=== PATIENT | male | born 1955 | race Caucasian/White ===

== ENCOUNTER → 2016-05-01 | Outpatient (CLI) | payer MEDICARE, BC ==
--- NOTE | 2016-05-01 13:24 | XR ---
EXAMINATION TYPE: XR abdomen 1V DATE OF EXAM: 05/01/2016 12:06 PM COMPARISON: NONE HISTORY: Pain TECHNIQUE: Single supine KUB image of the abdomen is obtained FINDINGS: Small bowel demonstrates no evidence for dilatation or air fluid levels. Gas and fecal material is seen in non-distended colon. No convincing evidence for pneumoperitoneum. No unusual calcifications. Splenic granulomas noted. The lung bases are clear. The osseous structures are intact. IMPRESSION: 1. Overall nonobstructive bowel gas pattern.
== END | disposition home or self-care (01) ==
LOC: RADXRMAIN 11:44
PROVIDERS: ATTEND Physician Assistant
DX: R10.9 Unspecified abdominal pain (principal)
CPT/HCPCS: 74000

== ENCOUNTER → 2016-05-03 | Outpatient (CLI) | payer MEDICARE, BC ==
--- NOTE | 2016-05-03 07:59 | US ---
EXAMINATION TYPE: US liver DATE OF EXAM: 05/03/2016 7:27 AM COMPARISON: CT in pacs CLINICAL HISTORY: E80.6 BILIRUBIN METABOLISM DISORDER. Abdomen pain x 2 weeks EXAM MEASUREMENTS: Liver Length: 12.0 cm Gallbladder Wall: 0.2 cm CBD: 0.4 cm Right Kidney: 10.4 cm Pancreas: obscured by overlying midline bowel gas Liver: appears small heterogeneous with slightly lobulated contour, 0.8cm hypoechoic cystic area ant erior left lobe, limited by rib shadowing and overlying bowel gas Gallbladder: multiple echogenic foci seen Evidence for sonographic Willard's sign: no CBD: visualized portions wnl, limited by overlying bowel gas Right Kidney: 0.4cm echogenic foci inferior pole, superior pole obscured by overlying bowel gas IMPRESSION: 1. Fatty liver versus diffuse hepatocellular disease. 2. Cholelithiasis. 3 right renal calculus.
== END | disposition home or self-care (01) ==
LOC: RADUSWWP 06:53
PROVIDERS: ATTEND Family Medicine
DX: K80.20 Calculus of gallbladder without cholecystitis without obstruction (principal); N20.0 Calculus of kidney; E80.6 Other disorders of bilirubin metabolism
CPT/HCPCS: 76705

== ENCOUNTER 2016-11-15 18:18 | Inpatient (IN) | payer MEDICARE, BC ==
--- NOTE | 2016-11-15 18:42 | ED ---
SOB HPI - General Chief Complaint: Shortness of Breath Stated Complaint: katelyn, x 1 day Time Seen by Provider: 11/15/16 18:30 Source: patient, RN notes reviewed Mode of arrival: wheelchair Limitations: no limitations - History of Present Illness Initial Comments: This is a 61-year-old male with a history of COPD who states she's had shortness of breath since yesterday which is getting progressively worse. He woke up and sweats this morning he said cough with yellow phlegm. Chest pain no other symptoms reviewed this time. MD Complaint: shortness of breath, cough - Related Data Home Medications Medication Instructions Recorded Confirmed Albuterol Sulfate [Proair Hfa] 2 puff INHALATION RT-QID PRN 09/05/14 11/15/16 Omeprazole [PriLOSEC] 20 mg PO DAILY 09/05/14 11/15/16 Lisinopril [Zestril] 10 mg PO DAILY 12/10/15 11/15/16 traMADol HCL [Ultram] 50 mg PO QID PRN 12/10/15 11/15/16 Multivit-Min/FA/Lycopen/Lutein 1 tab PO DAILY 11/15/16 11/15/16 [Centrum Silver Tablet] Allergies Allergy/AdvReac Type Severity Reaction Status Date / Time No Known Allergies Allergy Verified 11/15/16 19:35 Review of Systems ROS Statement: Those systems with pertinent positive or pertinent negative responses have been documented in the HPI. ROS Other: All systems not noted in ROS Statement are negative. Past Medical History Past Medical History: GERD/Reflux, Hypertension, Pneumonia Additional Past Medical History / Comment(s): pneumonia , left ankle tendon injury winter 2013 History of Any Multi-Drug Resistant Organisms: None Reported Past Surgical History: Orthopedic Surgery Additional Past Surgical History / Comment(s): right leg surgery 2009 r hip surg Past Psychological History: No Psychological Hx Reported Smoking Status: Former smoker Past Alcohol Use History: Heavy, Rare Past Drug Use History: None Reported - Past Family History Mother Family Medical History: GERD/Reflux Additional Family Medical History / Comment(s): of crohn's disease Father Family Medical History: Diabetes Mellitus General Exam - General Exam Comments Initial Comments: This is a well-developed well-nourished awake alert oriented x 3 male Limitations: no limitations General appearance: alert, in no apparent distress Head exam: Present: atraumatic, normocephalic, normal inspection Eye exam: Present: normal appearance, PERRL, EOMI. Absent: scleral icterus, conjunctival injection, periorbital swelling ENT exam: Present: normal exam, mucous membranes moist Neck exam: Present: normal inspection. Absent: tenderness, meningismus, lymphadenopathy Respiratory exam: Present: decreased breath sounds. Absent: respiratory distress, wheezes, rales, rhonchi, stridor Cardiovascular Exam: Present: regular rate, normal rhythm, normal heart sounds. Absent: systolic murmur, diastolic murmur, rubs, gallop, clicks GI/Abdominal exam: Present: soft, normal bowel sounds. Absent: distended, tenderness, guarding, rebound, rigid Extremities exam: Present: normal inspection, full ROM, normal capillary refill. Absent: tenderness, pedal edema, joint swelling, calf tenderness Back exam: Present: normal inspection Neurological exam: Present: alert, oriented X3, CN II-XII intact Psychiatric exam: Present: normal affect, normal mood Skin exam: Present: warm, dry, intact, normal color. Absent: rash Course Vital Signs 11/15/16 11/15/16 11/15/16 18:35 19:07 19:31 Temperature 99.1 F Pulse Rate 90 68 Respiratory 18 18 18 Rate Blood Pressure 161/77 142/67 O2 Sat by Pulse 94 L 99 Oximetry 11/15/16 19:46 Temperature Pulse Rate 88 Respiratory Rate Blood Pressure O2 Sat by Pulse Oximetry - Reevaluation(s) Reevaluation #1: 11/15/16 22:17 The patient did get some relief but then started having repeated shortness of breath. He will be admitted Medical Decision Making - Medical Decision Making I did discuss findings with the patient with Dr. Trevino patient be admitted CT the chest will be performed pulmonary will be consulted. - Lab Data Result diagrams: 11/15/16 18:55 11/15/16 18:55 Lab Results 11/15/16 11/15/16 11/15/16 Range/Units 18:55 18:55 18:55 WBC 4.1 (3.8-10.6) k/uL RBC 4.06 L (4.30-5.90) m/uL Hgb 10.5 L (13.0-17.5) gm/dL Hct 34.0 L (39.0-53.0) % MCV 83.7 (80.0-100.0) fL MCH 25.8 (25.0-35.0) pg MCHC 30.8 L (31.0-37.0) g/dL RDW 19.7 H (11.5-15.5) % Plt Count 94 L (150-450) k/uL Neutrophils % (Manual) 79 % Band Neutrophils % 1.0 % Lymphocytes % (Manual) 11 % Monocytes % (Manual) 8 % Eosinophils % (Manual) 1 % Neutrophils # (Manual) 3.28 (1.3-7.7) k/uL Lymphocytes # (Manual) 0.45 L (1.0-4.8) k/uL Monocytes # (Manual) 0.33 (0-1.0) k/uL Eosinophils # (Manual) 0.04 (0-0.7) k/uL Nucleated RBCs 0 (0-0) /100 WBC Polychromasia Present Hypochromasia Marked Anisocytosis Slight Microcytosis Slight PT (9.0-12.0) sec INR (<1.2) APTT (22.0-30.0) sec D-Dimer (<0.60) mg/L FEU Sodium 136 L (137-145) mmol/L Potassium 3.9 (3.5-5.1) mmol/L Chloride 109 H (98-107) mmol/L Carbon Dioxide 21 L (22-30) mmol/L Anion Gap 6 mmol/L BUN 10 (9-20) mg/dL Creatinine 0.68 (0.66-1.25) mg/dL Est GFR (MDRD) Af Amer >60 (>60 ml/min/1.73 sqM) Est GFR (MDRD) Non-Af >60 (>60 ml/min/1.73 sqM) Glucose 91 (74-99) mg/dL Calcium 8.0 L (8.4-10.2) mg/dL Magnesium 1.8 (1.6-2.3) mg/dL Total Bilirubin 2.2 H (0.2-1.3) mg/dL AST 28 (17-59) U/L ALT 25 (21-72) U/L Alkaline Phosphatase 129 H (38-126) U/L Total Creatine Kinase 75 (55-170) U/L CK-MB (CK-2) 2.7 H* (0.0-2.4) ng/mL CK-MB (CK-2) Rel Index 3.6 Troponin I <0.012 (0.000-0.034) ng/mL NT-Pro-B Natriuret Pep pg/mL Total Protein 6.7 (6.3-8.2) g/dL Albumin 2.7 L (3.5-5.0) g/dL 11/15/16 11/15/16 Range/Units 18:55 18:55 WBC (3.8-10.6) k/uL RBC (4.30-5.90) m/uL Hgb (13.0-17.5) gm/dL Hct (39.0-53.0) % MCV (80.0-100.0) fL MCH (25.0-35.0) pg MCHC (31.0-37.0) g/dL RDW (11.5-15.5) % Plt Count (150-450) k/uL Neutrophils % (Manual) % Band Neutrophils % % Lymphocytes % (Manual) % Monocytes % (Manual) % Eosinophils % (Manual) % Neutrophils # (Manual) (1.3-7.7) k/uL Lymphocytes # (Manual) (1.0-4.8) k/uL Monocytes # (Manual) (0-1.0) k/uL Eosinophils # (Manual) (0-0.7) k/uL Nucleated RBCs (0-0) /100 WBC Polychromasia Hypochromasia Anisocytosis Microcytosis PT 14.2 H (9.0-12.0) sec INR 1.5 H (<1.2) APTT 31.5 H (22.0-30.0) sec D-Dimer 0.79 H (<0.60) mg/L FEU Sodium (137-145) mmol/L Potassium (3.5-5.1) mmol/L Chloride (98-107) mmol/L Carbon Dioxide (22-30) mmol/L Anion Gap mmol/L BUN (9-20) mg/dL Creatinine (0.66-1.25) mg/dL Est GFR (MDRD) Af Amer (>60 ml/min/1.73 sqM) Est GFR (MDRD) Non-Af (>60 ml/min/1.73 sqM) Glucose (74-99) mg/dL Calcium (8.4-10.2) mg/dL Magnesium (1.6-2.3) mg/dL Total Bilirubin (0.2-1.3) mg/dL AST (17-59) U/L ALT (21-72) U/L Alkaline Phosphatase (38-126) U/L Total Creatine Kinase (55-170) U/L CK-MB (CK-2) (0.0-2.4) ng/mL CK-MB (CK-2) Rel Index Troponin I (0.000-0.034) ng/mL NT-Pro-B Natriuret Pep 246 pg/mL Total Protein (6.3-8.2) g/dL Albumin (3.5-5.0) g/dL - EKG Data -: EKG Interpreted by Nv EKG shows normal: sinus rhythm (Sinus rhythm rate 91 appear to 05/08/1979 QRS duration 88 daily since QTC of 386/474 this is a normal-appearing EKG with some artifact) - Radiology Data Radiology results: report reviewed (X-ray show no acute findings.), image reviewed Critical Care Time Critical Care Time: Yes Critical Care Time: 31 minutes of critical care time which includes initial monitoring with history physical labs x-rays reevaluation patient response to therapy. Evaluation of old charting available. Discussion with the patient discussion with the patient 's physician and admission orders and documentation of the above. Disposition Clinical Impression: Acute exacerbation of chronic obstructive airways disease, Adult respiratory distress syndrome Disposition: ADMITTED IP TO THIS [facility] Condition: Stable Referrals: Narayan Trevino MD [Primary Care Provider] - 1-2 days
[2016-11-15] MEDS ORDERED: IPRATROPIUM-ALBUTEROL 3 ML NEB INHALATION STA (18:59)
[2016-11-15 19:30] LABS: ALT 25 U/L (21-72); AST 28 U/L (17-59); Alkaline Phosphatase 129 U/L (38-126); Anion Gap 6 mmol/L; Blood Urea Nitrogen 10 mg/dL (9-20); Carbon Dioxide 21 mmol/L (22-30); Chloride 109 mmol/L (98-107); Glucose 91 mg/dL (74-99); Magnesium 1.8 mg/dL (1.6-2.3); Non-African American GFR(MDRD) >60 (>60 ml/min/1.73 sqM); Potassium 3.9 mmol/L (3.5-5.1); Sodium 136 mmol/L (137-145); Total Bilirubin 2.2 mg/dL (0.2-1.3); Total Protein 6.7 g/dL (6.3-8.2)
[2016-11-15 19:37] LABS: Creatine Kinase 75 U/L (55-170)
[2016-11-15 19:40] LABS: INR 1.5 (<1.2); Partial Thromboplastin Time 31.5 sec (22.0-30.0); Prothrombin Time 14.2 sec (9.0-12.0)
[2016-11-15 19:50] LABS: Troponin I <0.012 ng/mL (0.000-0.034)
[2016-11-15 19:53] LABS: Anisocytosis Slight; Aty Lym Flag Slight; CH 24.7; CHCM 29.6; HDW 3.27; HGB 10.5 gm/dL (13.0-17.5); Hypochromasia Marked; MCH 25.8 pg (25.0-35.0); MCHC 30.8 g/dL (31.0-37.0); MCV 83.7 fL (80.0-100.0); Mean Platelet Volume 7.5; Microcytosis Slight; RBC 4.06 m/uL (4.30-5.90); RDW 19.7 % (11.5-15.5); WBC 4.1 k/uL (3.8-10.6); WBC (Perox) 3.88
[2016-11-15 19:58] LABS: Creatine Kinase MB 2.7 ng/mL (0.0-2.4)
--- NOTE | 2016-11-15 20:13 | XR ---
EXAMINATION TYPE: XR chest 2V DATE OF EXAM: 11/15/2016 COMPARISON: Chest x-ray December 10, 2015. HISTORY: History of COPD presents with difficulty in breathing. TECHNIQUE: Frontal and lateral views of the chest are obtained. FINDINGS: Chronic emphysematous changes redemonstrated. There is no focal air space opacity, pleural effusion, or pneumothorax seen. The cardiac silhouette size is stable and upper limits of normal. The osseous structures are intact. IMPRESSION: Chronic emphysematous change without acute pulmonary process.
[2016-11-15 20:33] LABS: Add Differential Manual Differential
[2016-11-15 20:36] LABS: Nucleated Red Blood Cells 0 /100 WBC (0-0); Polychromasia Present; Total Cells Counted 100
[2016-11-15] MEDS ORDERED: RX INFO: IV CONTRAST WAS GIVEN 1 EACH MISC MISCELLANE PRN (22:21)
--- NOTE | 2016-11-15 23:34 | CT ---
EXAM: CT Angiography Chest With Intravenous Contrast CLINICAL HISTORY: Pain. Decreased O2 saturation TECHNIQUE: Axial computed tomographic angiography images of the chest with intravenous contrast using pulmonary embolism protocol. CTDI is slight 29.4 mGy and DLP is 377.7 mGy-cm. This CT exam was performed using one or more of the following dose reduction techniques: automated exposure control, adjustment of the mA and/or kV according to patient size, and/or use of iterative reconstruction technique. MIP reconstructed images were created and reviewed. Coronal and sagittal reformatted images were created and reviewed. Axial reformatted images were created and reviewed. COMPARISON: CT December 10, 2014 FINDINGS: Pulmonary arteries: No pulmonary embolism. Aorta: No aortic aneurysm or dissection. Lungs: No infiltrate No mass. Pleural space: Unremarkable. No significant effusion. No pneumothorax. Heart: Heart size is normal. No pericardial effusion. No rightward bowing of the ventricular septum Bones/joints: No osseous abnormality No acute fracture. No dislocation. Soft tissues: Unremarkable. Lymph nodes: Small calcified mediastinal and right hilar lymph nodes not meeting size criteria for lymphadenopathy No axillary lymphadenopathy Visualized upper abdomen: Cirrhosis. Tiny cholelithiasis. Subcentimeter granulomatous of the spleen. 3.5 cm exophytic left renal cyst. IMPRESSION: 1. No pulmonary embolism. 2. No aortic aneurysm or dissection. 3. Cirrhotic liver. 4. Tiny choledocholithiasis
[2016-11-15] MEDS ORDERED: IPRATROPIUM-ALBUTEROL 3 ML NEB INHALATION PRN (23:54)
[2016-11-16] MEDS ORDERED: IPRATROPIUM-ALBUTEROL 3 ML NEB INHALATION SCH
[2016-11-16 00:44] VITALS: BMI 27.9
[2016-11-16] MEDS: traMADol 50 MG TAB PO PRN ×2 (02:46→09:15)
[2016-11-16] MEDS: methylPREDNISolone SOD SUCCI 125 MG/2 ML VIAL IV SCH ×3 (02:47→12:08)
[2016-11-16] MEDS: SODIUM CHLORIDE 0.9% 1,000 ML IV SCH ×2 (05:40→05:41)
[2016-11-16] MEDS: IPRATROPIUM-ALBUTEROL 3 ML NEB INHALATION SCH ×2 (07:25→11:09)
[2016-11-16] MEDS ORDERED: PANTOPRAZOLE 40 MG TABLET PO SCH (07:30)
[2016-11-16 07:41] VITALS: BP 141/71
[2016-11-16] MEDS ORDERED: LISINOPRIL 10 MG TAB PO SCH (09:00)
--- NOTE | 2016-11-16 11:21 | P.HPIM ---
History of Present Illness 51-year-old male presented to the emergency room with complaints of exacerbation of COPD. States he's had sweats and nonproductive sputum. His improving of right ankle foot cellulitis Review of Systems Respiratory: Reports cough Musculoskeletal: right: ankle swelling, hip pain Past Medical History Past Medical History: GERD/Reflux, Hypertension, Pneumonia Additional Past Medical History / Comment(s): pneumonia , left ankle tendon injury winter 2013 History of Any Multi-Drug Resistant Organisms: None Reported Past Surgical History: Orthopedic Surgery Additional Past Surgical History / Comment(s): right leg surgery 2009 r hip surg Past Psychological History: No Psychological Hx Reported Smoking Status: Former smoker Past Alcohol Use History: Heavy, Rare Additional Past Alcohol Use History / Comment(s): pt asking for beer on arrival to nursing unit Past Drug Use History: None Reported - Past Family History Mother Family Medical History: GERD/Reflux Additional Family Medical History / Comment(s): of crohn's disease Father Family Medical History: Diabetes Mellitus Medications and Allergies Home Medications Medication Instructions Recorded Confirmed Type Albuterol Sulfate [Proair Hfa] 2 puff INHALATION RT-QID PRN 09/05/14 11/15/16 History Omeprazole [PriLOSEC] 20 mg PO DAILY 09/05/14 11/15/16 History Lisinopril [Zestril] 10 mg PO DAILY 12/10/15 11/15/16 History traMADol HCL [Ultram] 50 mg PO QID PRN 12/10/15 11/15/16 History Multivit-Min/FA/Lycopen/Lutein 1 tab PO DAILY 11/15/16 11/15/16 History [Centrum Silver Tablet] Allergies Allergy/AdvReac Type Severity Reaction Status Date / Time No Known Allergies Allergy Verified 11/15/16 19:35 Physical Exam Vitals: Vital Signs Temp Pulse Pulse Resp BP BP Pulse Ox 11/16/16 11:09 78 11/16/16 07:40 97.6 F 92 16 141/71 94 L 11/16/16 07:36 88 11/16/16 07:26 87 95 11/16/16 00:30 98.0 F 94 16 147/69 94 L 11/16/16 00:19 97.6 F 70 18 152/59 99 11/16/16 00:14 86 11/16/16 00:05 97.9 F 80 17 156/64 11/15/16 23:57 80 11/15/16 22:58 78 16 137/79 98 11/15/16 19:46 88 11/15/16 19:31 68 18 142/67 99 11/15/16 19:07 18 11/15/16 18:35 99.1 F 90 18 161/77 94 L Intake and Output 11/15/16 11/16/16 11/16/16 22:59 06:59 14:59 Intake Total 480 240 Output Total 900 Balance -420 240 Intake: Oral 480 240 Output: Urine 900 Other: Weight 88.451 kg 88.451 kg - Constitutional General appearance: mild distress, obese - EENT Eyes: PERRLA Ears: bilateral: normal - Neck Neck: normal ROM - Respiratory Respiratory: bilateral: diminished - Cardiovascular Rhythm: regular - Gastrointestinal General gastrointestinal: soft - Integumentary Right lower ankle foot Integumentary: cellulitis - Musculoskeletal Musculoskeletal: generalized weakness - Psychiatric Psychiatric: A&O x's 3, appropriate affect, intact judgment & insight Results CBC & Chem 7: 11/15/16 18:55 11/15/16 18:55 Labs: Abnormal Lab Results - Last 24 Hours (Table) 11/15/16 11/15/16 11/15/16 Range/Units 18:55 18:55 18:55 RBC 4.06 L (4.30-5.90) m/uL Hgb 10.5 L (13.0-17.5) gm/dL Hct 34.0 L (39.0-53.0) % MCHC 30.8 L (31.0-37.0) g/dL RDW 19.7 H (11.5-15.5) % Plt Count 94 L (150-450) k/uL Lymphocytes # (Manual) 0.45 L (1.0-4.8) k/uL PT (9.0-12.0) sec INR (<1.2) APTT (22.0-30.0) sec D-Dimer (<0.60) mg/L FEU Sodium 136 L (137-145) mmol/L Chloride 109 H (98-107) mmol/L Carbon Dioxide 21 L (22-30) mmol/L Calcium 8.0 L (8.4-10.2) mg/dL Total Bilirubin 2.2 H (0.2-1.3) mg/dL Alkaline Phosphatase 129 H (38-126) U/L CK-MB (CK-2) 2.7 H* (0.0-2.4) ng/mL Albumin 2.7 L (3.5-5.0) g/dL 11/15/16 Range/Units 18:55 RBC (4.30-5.90) m/uL Hgb (13.0-17.5) gm/dL Hct (39.0-53.0) % MCHC (31.0-37.0) g/dL RDW (11.5-15.5) % Plt Count (150-450) k/uL Lymphocytes # (Manual) (1.0-4.8) k/uL PT 14.2 H (9.0-12.0) sec INR 1.5 H (<1.2) APTT 31.5 H (22.0-30.0) sec D-Dimer 0.79 H (<0.60) mg/L FEU Sodium (137-145) mmol/L Chloride (98-107) mmol/L Carbon Dioxide (22-30) mmol/L Calcium (8.4-10.2) mg/dL Total Bilirubin (0.2-1.3) mg/dL Alkaline Phosphatase (38-126) U/L CK-MB (CK-2) (0.0-2.4) ng/mL Albumin (3.5-5.0) g/dL Chest x-ray: report reviewed CT scan - chest: report reviewed Thrombosis Risk Factor Assmnt - Choose All That Apply Any of the Below Risk Factors Present?: Yes Each Factor Represents 1 point: Abnormal pulmonary function (COPD) Each Risk Factor Represents 2 Points: Age 61-74 years Each Risk Factor Represents 3 Points: History of DVT/PE Thrombosis Risk Factor Assessment Total Risk Factor Score: 6 Thrombosis Risk Factor Assessment Level: High Risk Assessment and Plan Plan: Assessment Acute on chronic chronic obstructive lung disease Tracheobronchitis Cellulitis of the right foot improving history of GERD Hypertension Osteoarthritis right hip Plan Consultation with pulmonology to dose antibiotics if needed
[2016-11-16] MEDS ORDERED: MULTIVITAMINS, THERA 1 EACH TAB PO SCH (12:00)
[2016-11-16 14:07] VITALS: PULSE 105; RESP 17; TEMP 98.7
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
== END 2016-11-16 15:01 | disposition left against medical advice (07) | DRG 191 ==
LOC: EC 18:18 → 3SUR 22:19
PROVIDERS: ADMIT Family Medicine; ATTEND Family Medicine
DX: J44.1 Chronic obstructive pulmonary disease with (acute) exacerbation (principal); L03.115 Cellulitis of right lower limb; I10 Essential (primary) hypertension; K21.9 Gastro-esophageal reflux disease without esophagitis; K76.9 Liver disease, unspecified; M16.11 Unilateral primary osteoarthritis, right hip; K80.50 Calculus of bile duct without cholangitis or cholecystitis without obstruction; Z79.899 Other long term (current) drug therapy; Z87.891 Personal history of nicotine dependence
CPT/HCPCS: 36415; 71020; 71275; 80053; 82550; 82553; 83735; 83880; 84484; 85025; 85379; 85610; 85730; 87040; 93005; 94640; 94760

== ENCOUNTER 2017-03-08 12:58 | Emergency (ER) | payer MEDICARE, BC ==
[2017-03-08 13:04] VITALS: TEMP 97.8
--- NOTE | 2017-03-08 13:34 | ED ---
Medical Clearance HPI - General Chief complaint: Drug Screen Stated complaint: Wants Urine Test Source: patient Mode of arrival: wheelchair - History of Present Illness Initial comments: Patient is a 61-year-old male who presents for evaluation for a urine drug screen. Past medical history as below. Patient stated that he was sent here by a county judge to get a urine drug screen. 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 He hasn't driven and 10 years. He cited chronic muscle skeletal issues which have been improving so he wants to start driving again. He's been working with a translator interpreter to help get him a drop hammer pile driver operator's license. He was instructed to come here specifically for a urine drug screen. He states that he has no complaints at this time. He states that he does not want a medical evaluation. He does have a primary care physician. He currently denies fever, chills, headache and changes of vision, URI symptoms, shortness of breath, cough, chest pain, nausea, vomiting, diarrhea, pain or burning with urination. Home medications: Home Medications Medication Instructions Recorded Confirmed Albuterol Sulfate [Proair Hfa] 2 puff INHALATION RT-QID PRN 09/05/14 11/15/16 Omeprazole [PriLOSEC] 20 mg PO DAILY 09/05/14 11/15/16 Lisinopril [Zestril] 10 mg PO DAILY 12/10/15 11/15/16 traMADol HCL [Ultram] 50 mg PO QID PRN 12/10/15 11/15/16 Multivit-Min/FA/Lycopen/Lutein 1 tab PO DAILY 11/15/16 11/15/16 [Centrum Silver Tablet] Allergies/Adverse reactions: Allergies Allergy/AdvReac Type Severity Reaction Status Date / Time No Known Allergies Allergy Verified 03/08/17 13:04 Review of Systems ROS Statement: Those systems with pertinent positive or pertinent negative responses have been documented in the HPI. ROS Other: All systems not noted in ROS Statement are negative. Past Medical History Past Medical History: GERD/Reflux, Hypertension, Pneumonia Additional Past Medical History / Comment(s): COPD, hypertension, acid reflux, fracture of the right ankle with an extensive reconstruction surgery, a previous hospitalization for a right subtrochanteric femur fracture post ORIF History of Any Multi-Drug Resistant Organisms: None Reported Past Surgical History: Orthopedic Surgery Additional Past Surgical History / Comment(s): right leg surgery 2009, right hip ORIF for subtrochanteric fracture Past Psychological History: No Psychological Hx Reported Smoking Status: Former smoker Past Alcohol Use History: None Reported Past Drug Use History: None Reported - Past Family History Mother Family Medical History: GERD/Reflux Additional Family Medical History / Comment(s): of crohn's disease Father Family Medical History: Diabetes Mellitus General Exam Limitations: physical limitation General appearance: alert, in no apparent distress, other (Nontoxic appearing) Head exam: Present: atraumatic, normocephalic, normal inspection Eye exam: Present: normal appearance, PERRL, EOMI. Absent: scleral icterus, conjunctival injection, periorbital swelling ENT exam: Present: normal exam, mucous membranes moist Neck exam: Present: normal inspection. Absent: tenderness, meningismus, lymphadenopathy Respiratory exam: Present: normal lung sounds bilaterally. Absent: respiratory distress, wheezes, rales, rhonchi, stridor Cardiovascular Exam: Present: regular rate, normal rhythm, normal heart sounds. Absent: systolic murmur, diastolic murmur, rubs, gallop, clicks GI/Abdominal exam: Present: soft, normal bowel sounds. Absent: distended, tenderness, guarding, rebound, rigid Extremities exam: Present: normal inspection, full ROM, normal capillary refill. Absent: tenderness, pedal edema, joint swelling, calf tenderness Back exam: Present: normal inspection Neurological exam: Present: alert, oriented X3, CN II-XII intact Psychiatric exam: Present: normal affect, normal mood Skin exam: Present: warm, dry, intact, normal color. Absent: rash Course Vital Signs 03/08/17 13:01 Temperature 97.8 F Pulse Rate 100 Respiratory 20 Rate Blood Pressure 157/72 O2 Sat by Pulse 95 Oximetry Medical Decision Making - Medical Decision Making Patient is a 61-year-old male percents for evaluation for a urine drug screen. I inquired about him going to the specific location or sending off this urine drug screen and the patient stated that he specifically needed to come here for a urine drug screen. I told the patient that I'm unable to provide a normal a copy of the urine drug screen and needs requested to medical records. He voiced understanding. I also told the patient that I have not medically cleared him for driving. He also voiced understanding of this. Provided contact information for medical records. We'll have the urine drug screen faxed to wherever it needs to be. I discussed specific signs and symptoms on when to return to the emergency department for further evaluation. Voiced understanding. Disposition Clinical Impression: Encounter for drug screening Disposition: HOME SELF-CARE Condition: Good Referrals: Narayan Trevino MD [Primary Care Provider] - 1-2 days
[2017-03-08 14:41] VITALS: BP 147/80; PULSE 75; RESP 16
== END 2017-03-08 14:35 | disposition home or self-care (01) ==
LOC: EC 12:58
DX: Z02.9 Encounter for administrative examinations, unspecified (principal); I10 Essential (primary) hypertension; K21.9 Gastro-esophageal reflux disease without esophagitis; Z87.891 Personal history of nicotine dependence; Z79.899 Other long term (current) drug therapy
CPT/HCPCS: 80306; 99282

== ENCOUNTER → 2017-05-04 | Outpatient (CLI) | payer MEDICARE, BC ==
--- NOTE | 2017-05-04 15:48 | CT ---
EXAMINATION TYPE: CT hip LT w con DATE OF EXAM: 05/04/2017 COMPARISON: NONE HISTORY: pain lt hip CT DLP: 382 mGycm Automated exposure control for dose reduction was used. CONTRAST: Performed with IV Contrast, patient injected with 100 mL of Omnipaque 300. FINDINGS: There is mild acetabular roof sclerosis and small acetabular marginal osteophytes. Mild cephalad join t space narrowing is noted. The left femoral head maintains a normal rounded morphology. No evidence of avascular necrosis or femoral fracture. The remaining visualized osseous structures of the left he mipelvis are intact. Muscle volume of the left hip girdle is unremarkable. Moderate colonic retained stool is noted. Urina ry bladder is grossly unremarkable. Labrum cannot be visualized on CT. Phleboliths are noted within t he pelvis. IMPRESSION: 1. MILD LEFT FEMORAL ACETABULAR ARTHROPATHY. 2. NO EVIDENCE OF AVASCULAR NECROSIS OR ACUTE LEFT HIP FRACTURE/DISLOCATION. 3. MUSCULAR VOLUME IS UNREMARKABLE ON CT. IF THERE IS FURTHER CONCERN FOR LABRAL INJURY, MYOSITIS, OR BURSITIS MR COULD BE PERFORMED. 4. MODERATE COLONIC STOOL BURDEN.
== END | disposition home or self-care (01) ==
LOC: RADXRMAIN 13:51
PROVIDERS: ATTEND Family Medicine
DX: M12.852 Other specific arthropathies, not elsewhere classified, left hip (principal)
CPT/HCPCS: 73701; Q9967

== ENCOUNTER → 2017-05-11 | Outpatient (CLI) | payer MEDICARE, BC ==
--- NOTE | 2017-05-11 11:15 | US ---
EXAMINATION TYPE: US venous doppler duplex LE RT DATE OF EXAM: 05/11/2017 10:51 AM COMPARISON: US CLINICAL HISTORY: R60 Localized edema right leg. Pt having right leg pain and swelling, pt states no known prior DVT, but is currently on blood thinners SIDE PERFORMED: Right TECHNIQUE: The lower extremity deep venous system is examined utilizing real time linear array sonog sade with graded compression, doppler sonography and color-flow sonography. VESSELS IMAGED: External Iliac Vein (EIV) Common Femoral Vein Deep Femoral Vein Greater Saphenous Vein * Femoral Vein Popliteal Vein Small Saphenous Vein * Proximal Calf Veins (* superficial vessels) Grayscale, color doppler, spectral doppler imaging performed of the deep veins of the lower extremiti es. There is normal flow, compressibility, vascular waveforms. Right Leg: Negative for DVT Results called to Padmini at 's office at time of exam IMPRESSION: No sonographic evidence of deep venous thrombosis within the right lower extremity.
== END | disposition home or self-care (01) ==
LOC: RADUSWWP 10:30
PROVIDERS: ATTEND Family Medicine
DX: R60.0 Localized edema (principal); Z88.8 Allergy status to other drugs, medicaments and biological substances

== ENCOUNTER 2017-09-20 18:17 | Emergency (ER) | payer MEDICARE, BC ==
--- NOTE | 2017-09-20 20:35 | XR ---
EXAMINATION TYPE: XR foot complete RT DATE OF EXAM: 09/20/2017 COMPARISON: NONE HISTORY: Twisting injury TECHNIQUE: 3 views FINDINGS: There is soft tissue swelling of the foot. There is osteopenia. There is apparent triple ar throdesis of the ankle. I see no acute fracture nor dislocation. IMPRESSION: Osteopenia. No acute bony abnormality seen. There is soft tissue swelling noted of the bi g toe.
--- NOTE | 2017-09-20 20:37 | XR ---
EXAMINATION TYPE: XR ankle complete RT DATE OF EXAM: 09/20/2017 COMPARISON: NONE HISTORY: Ankle pain TECHNIQUE: 3 views FINDINGS: There is arthrodesis of the hindfoot and ankle. I see no fracture nor dislocation. There is generalized osteopenia. IMPRESSION: No acute abnormality of the right ankle.
--- NOTE | 2017-09-20 21:21 | US ---
EXAMINATION TYPE: US venous doppler duplex LE RT DATE OF EXAM: 09/20/2017 9:08 PM COMPARISON: NONE CLINICAL HISTORY: Pain. Right ankle swelling. SIDE PERFORMED: Right TECHNIQUE: The lower extremity deep venous system is examined utilizing real time linear array sonog sade with graded compression, doppler sonography and color-flow sonography. VESSELS IMAGED: External Iliac Vein (EIV) Common Femoral Vein Deep Femoral Vein Greater Saphenous Vein * Femoral Vein Popliteal Vein Small Saphenous Vein * Proximal Calf Veins (* superficial vessels) Right Leg: Negative for DVT No evidence of DVT right leg. IMPRESSION: No evidence of deep venous thrombosis in the right leg.
--- NOTE | 2017-09-20 21:30 | ED ---
Lower Extremity Injury HPI - General Chief Complaint: Extremity Injury, Lower Stated Complaint: rt foot/ankle injury Time Seen by Provider: 09/20/17 19:40 Source: patient, RN notes reviewed, old records reviewed Mode of arrival: ambulatory Limitations: no limitations - History of Present Illness Initial Comments: This patient is a 61 year old male with CC of right ankle pain after rolling his ankle at home while doing house repairs. He has chronic R ankle wound after an injury in 2008. HE reports that he has constant drainage from ankle, and has no changes in alex wound. Patient reports that he has pain in the foot as well. Denies any other injury. Patient reports he drank a few beers before coming here for the pain. - Related Data Home Medications Medication Instructions Recorded Confirmed Albuterol Sulfate [Proair Hfa] 2 puff INHALATION RT-QID PRN 09/05/14 09/20/17 Multivit-Min/FA/Lycopen/Lutein 1 tab PO DAILY 11/15/16 09/20/17 [Centrum Silver Tablet] Acetaminophen Tab [Tylenol Tab] 325 mg PO HS PRN 09/20/17 09/20/17 Previous Rx's Medication Instructions Recorded Ibuprofen 600 mg PO TID #20 tablet 09/20/17 Allergies Allergy/AdvReac Type Severity Reaction Status Date / Time No Known Allergies Allergy Verified 09/20/17 20:00 Review of Systems ROS Statement: Those systems with pertinent positive or pertinent negative responses have been documented in the HPI. ROS Other: All systems not noted in ROS Statement are negative. Past Medical History Past Medical History: GERD/Reflux, Hypertension, Pneumonia Additional Past Medical History / Comment(s): COPD, hypertension, acid reflux, fracture of the right ankle with an extensive reconstruction surgery, a previous hospitalization for a right subtrochanteric femur fracture post ORIF History of Any Multi-Drug Resistant Organisms: None Reported Past Surgical History: Orthopedic Surgery Additional Past Surgical History / Comment(s): right leg surgery 2008, right hip ORIF for subtrochanteric fracture Past Psychological History: No Psychological Hx Reported Smoking Status: Former smoker Past Alcohol Use History: None Reported Past Drug Use History: None Reported - Past Family History Mother Family Medical History: GERD/Reflux Additional Family Medical History / Comment(s): of crohn's disease Father Family Medical History: Diabetes Mellitus General Exam - General Exam Comments Initial Comments: This is a 61 year old male, intoxicated. No acute distress. Limitations: no limitations General appearance: alert, in no apparent distress Head exam: Present: atraumatic, normocephalic, normal inspection Eye exam: Present: normal appearance, PERRL, EOMI. Absent: scleral icterus, conjunctival injection, periorbital swelling ENT exam: Present: normal exam, mucous membranes moist Neck exam: Present: normal inspection. Absent: tenderness, meningismus, lymphadenopathy Respiratory exam: Present: normal lung sounds bilaterally. Absent: respiratory distress, wheezes, rales, rhonchi, stridor Cardiovascular Exam: Present: regular rate, normal rhythm, normal heart sounds. Absent: systolic murmur, diastolic murmur, rubs, gallop, clicks GI/Abdominal exam: Present: soft, normal bowel sounds. Absent: distended, tenderness, guarding, rebound, rigid Right Knee exam: Present: normal inspection, full ROM Lower Leg exam: Present: normal inspection, full ROM, swelling Ankle exam: Present: full ROM. Absent: normal inspection (Chronic wound over lateral malleoulus. Patient follows with wound clinic. ) Foot/Toe exam: Present: normal inspection, full ROM, tenderness (Over heel) Back exam: Present: normal inspection Neurological exam: Present: alert, oriented X3, CN II-XII intact Psychiatric exam: Present: normal affect, normal mood Skin exam: Present: warm, dry, intact, normal color. Absent: rash Course Vital Signs 09/20/17 09/20/17 09/20/17 18:29 20:42 22:53 Temperature 98.6 F 97.7 F Pulse Rate 101 H 94 98 Respiratory 18 19 18 Rate Blood Pressure 166/78 173/86 156/78 O2 Sat by Pulse 99 96 97 Oximetry Medical Decision Making - Medical Decision Making This is a 61 year old male, presents after injury of right ankle. PAtient has had a chronic R ankle wound since 2008. Patient reports that he rolled his ankle while doing house work today. Patietn is concered for another broken bone, or DVT. Patient had xrays which show no acute process. Patient wound did have a small drainage. Culture obtained. US is negative for DVT. Discussed the normal results of xray and US, and patient is pleased and states he wants to go home. Discussed to follow up with wound care as he has and to see PCP. Given dressing and LIBBY wrap. Return parameters dsicussed. - Radiology Data Radiology results: report reviewed Understands negative for DVT. Osteopenia no acute bony N [place]. Soft tissue swelling of big toe. No acute abnormality of the right ankle. Disposition Clinical Impression: Chronic wound of extremity, Ankle sprain Disposition: HOME SELF-CARE Condition: Good Instructions: Ankle Sprain (ED) Additional Instructions: Patient advised to follow-up with primary care provider. Return to emergency department if any alarming signs or symptoms occur. He can use crutches. Prescriptions: Ibuprofen 600 mg PO TID #20 tablet Is patient prescribed a controlled substance at d/c from ED?: No When asked, does pt state using other controlled substances?: No If prescribed controlled substance>3 days was MAPS reviewed?: No If opioid is for acute pain is fill amount 7 days or less?: No If Rx opioid, was Start Talking consent form obtained?: No Referrals: Narayan Trevino MD [Primary Care Provider] - 1-2 days Rodolfo Tompkins DO [Doctor of Osteopathic Medicine] - 1-2 days Time of Disposition: 22:04
[2017-09-20] MEDS ORDERED: ACET/COD 300 MG/30 MG STARTER PACK 6 TAB BTL PO STA (22:05)
[2017-09-20 22:55] VITALS: BP 156/78; PULSE 98; RESP 18; TEMP 97.7
== END 2017-09-20 22:45 | disposition home or self-care (01) ==
LOC: EC 18:17
DX: S93.401A Sprain of unspecified ligament of right ankle, initial encounter (principal); S91.001A Unspecified open wound, right ankle, initial encounter; J44.9 Chronic obstructive pulmonary disease, unspecified; Z98.890 Other specified postprocedural states; Z87.891 Personal history of nicotine dependence; X50.1XXA Overexertion from prolonged static or awkward postures, initial encounter; Y93.E9 Activity, other interior property and clothing maintenance; Y92.009 Unspecified place in unspecified non-institutional (private) residence as the place of occurrence of the external cause
CPT/HCPCS: 87070; 87077; 87186; 87205; 99284

== ENCOUNTER → 2017-10-22 | Outpatient (CLI) | payer MEDICARE, BC ==
--- NOTE | 2017-10-22 13:29 | XR ---
EXAMINATION TYPE: XR Hip Complete RT DATE OF EXAM: 10/22/2017 CLINICAL HISTORY: Right hip pain after fixation TECHNIQUE: AP and frogleg views of the right hip are obtained. COMPARISON: None. FINDINGS: There is surgical fixation of a previously seen right proximal femoral fracture with postsu rgical heterotopic ossification around the lesser tuberosity and laterally on the frog leg view. No e vidence of [place] bone fracture. Osseous demineralization is noted. The lateral fixation plate nearly abuts the lateral cortical surface of the proximal femur with approximately 2 mm gap. No evidence of hardware fracture. IMPRESSION: No evidence of postsurgical malalignment of the left hip. The lateral patient plate does not entirely about the lateral cortical surface with a 2 mm gap. This is presumed to be due to angula tion of the fracture and heterotopic ossification and is not favored to represent loosening.
== END ==
LOC: RADXRMAIN 11:51
PROVIDERS: ATTEND Family Medicine
DX: M25.551 Pain in right hip (principal)
CPT/HCPCS: 73502

== ENCOUNTER 2017-11-26 10:33 | Inpatient (IN) | payer MEDICARE, BC ==
[2017-11-26] MEDS ORDERED: MORPHINE SULFATE 4 MG/ML SYRINGE IVP STA (11:40)
--- NOTE | 2017-11-26 11:54 | XR ---
EXAMINATION TYPE: XR tibia fibula RT DATE OF EXAM: 11/26/2017 CLINICAL HISTORY: Fall injury yesterday with pain. TECHNIQUE: Two views of the right leg are obtained. COMPARISON: Right ankle x-ray September 20, 2017.. FINDINGS: Demineralization is present. There is redemonstration of fairly moderate diffuse subcutaneo us edema with mild to moderate soft tissue swelling distally near ankle. There is no acute fracture or dislocation seen in the right tibia or fibula. Old fracture deformity distal tibia is redemonstrat ed. Ossific fusion or suspected arthrodesis tibiotalar joint is redemonstrated. Visualized knee joint is felt within normal limits. IMPRESSION: There is no acute fracture or dislocation seen in the right tibia or fibula.
--- NOTE | 2017-11-26 12:08 | XR ---
Right femur and right leg HISTORY: Trauma and pain, swelling 2 views of the right femur submitted on 4 images, 2 views of the right leg on [address] o [address] abdomen pelvis 02/24/2016, right hip 10/22/2017 Patient shows open reduction internal fixation changed in the proximal right femur, there is varus de formity. Lucency present at the level of the lesser trochanter could represent nonunion. Bone mineral ization is reduced. There are punched-out lucencies present within the bones which are indeterminate. Right leg shows low bone mineralization and punched-out lucencies. There is soft tissue swelling pres ent. I question ankylosis at the ankle joint, the joint is not well seen. IMPRESSION: Findings may represent pseudarthrosis, nonunion at the site of patient's previous fractur e in the proximal right femur. Indeterminate lucencies within the bone, consider multiple myeloma. No acute fracture or dislocation. Additional findings above.
--- NOTE | 2017-11-26 12:56 | ED ---
Lower Extremity Injury HPI - General Source: patient, RN notes reviewed Mode of arrival: EMS Limitations: no limitations <Marty Dougherty - Last Filed: 11/26/17 14:59> <Serg Cooley - Last Filed: 11/26/17 15:16> - General Chief Complaint: Extremity Injury, Lower Stated Complaint: fall, leg injury Time Seen by Provider: 11/26/17 10:43 - History of Present Illness Initial Comments: 62-year-old male present emergency department via EMS chief complaint right leg pain. Patient states that his knee gave out yesterday he fell the ground. Patient states that he is able to get the couch but could not find his phone to call states been laying pain. Patient states that he has had a prior right hip , right ankle surgery. Patient states that he is hip was performed by Dr. rGaf and right hip surgery by Dr. Willard and [facility]. Patient states that he was unable to bear weight on his right leg. Patient states most pain is wrong his right knee and right foot region. He states he does not have much hip pain. Patient denies head injury, loss conscious. (Marty Dougherty) - Related Data Home Medications Medication Instructions Recorded Confirmed Albuterol Sulfate [Proair Hfa] 2 puff INHALATION RT-QID PRN 09/05/14 11/26/17 Multivit-Min/FA/Lycopen/Lutein 1 tab PO DAILY 11/15/16 11/26/17 [Centrum Silver Tablet] Acetaminophen Tab [Tylenol Tab] 325 - 650 mg PO QID PRN 09/20/17 11/26/17 Albuterol Nebulized [Ventolin 2.5 mg INHALATION RT-QID PRN 11/26/17 11/26/17 Nebulized] Allergies Allergy/AdvReac Type Severity Reaction Status Date / Time No Known Allergies Allergy Verified 11/26/17 11:01 Review of Systems ROS Other: All systems not noted in ROS Statement are negative. <Marty Dougherty - Last Filed: 11/26/17 14:59> ROS Other: All systems not noted in ROS Statement are negative. <Serg Cooley - Last Filed: 11/26/17 15:16> ROS Statement: Those systems with pertinent positive or pertinent negative responses have been documented in the HPI. Past Medical History Past Medical History: GERD/Reflux, Hypertension, Pneumonia Additional Past Medical History / Comment(s): COPD, hypertension, acid reflux, fracture of the right ankle with an extensive reconstruction surgery, a previous hospitalization for a right subtrochanteric femur fracture post ORIF History of Any Multi-Drug Resistant Organisms: None Reported Past Surgical History: Orthopedic Surgery Additional Past Surgical History / Comment(s): right leg surgery 2008, right hip ORIF for subtrochanteric fracture Past Psychological History: No Psychological Hx Reported Smoking Status: Former smoker Past Alcohol Use History: None Reported Past Drug Use History: None Reported - Past Family History Mother Family Medical History: GERD/Reflux Additional Family Medical History / Comment(s): of crohn's disease Father Family Medical History: Diabetes Mellitus <Marty Dougherty - Last Filed: 11/26/17 14:59> General Exam Limitations: no limitations General appearance: alert, in no apparent distress Neck exam: Present: normal inspection. Absent: tenderness, meningismus, lymphadenopathy Respiratory exam: Present: wheezes. Absent: respiratory distress, rales, rhonchi, stridor Cardiovascular Exam: Present: normal rhythm, tachycardia, normal heart sounds. Absent: systolic murmur, diastolic murmur, rubs, gallop, clicks GI/Abdominal exam: Present: soft, normal bowel sounds. Absent: distended, tenderness, guarding, rebound, rigid Extremities exam: Present: other (There is moderate tenderness with palpation to the right knee, right foot and heel region there is slight open wound noted to the right heel pulses are equal bilaterally there is a chronic deformity noted the right foot with moderate swelling) Neurological exam: Present: alert, oriented X3, CN II-XII intact, reflexes normal. Absent: motor sensory deficit Skin exam: Present: warm, dry, intact, normal color. Absent: rash <Marty Dougherty - Last Filed: 11/26/17 14:59> Course <Marty Dougherty - Last Filed: 11/26/17 14:59> <Serg Cooley - Last Filed: 11/26/17 15:16> Vital Signs 11/26/17 10:40 Temperature 98.6 F Pulse Rate 111 H Respiratory 18 Rate Blood Pressure 164/78 O2 Sat by Pulse 91 L Oximetry - Reevaluation(s) Reevaluation #1: 11/26/17 15:15 PA supervision: I personally saw and examined the patient. I reviewed and agree with the PA findings including all diagnostic interpretations and treatment plans is written unless otherwise stated. I did discuss the case with Dr. Trevino. Patient would be admitted (Serg Cooley) Medical Decision Making - Lab Data Result diagrams: 11/26/17 12:40 11/26/17 12:40 <Marty Dougherty - Last Filed: 11/26/17 14:59> - Lab Data Result diagrams: 11/26/17 12:40 11/26/17 12:40 <Serg Cooley - Last Filed: 11/26/17 15:16> - Lab Data Lab Results 11/26/17 11/26/17 11/26/17 Range/Units 12:40 12:40 12:40 WBC 1.9 L* (3.8-10.6) k/uL RBC 3.72 L (4.30-5.90) m/uL Hgb 9.7 L (13.0-17.5) gm/dL Hct 32.3 L (39.0-53.0) % MCV 86.7 (80.0-100.0) fL MCH 26.1 (25.0-35.0) pg MCHC 30.1 L (31.0-37.0) g/dL RDW 20.2 H (11.5-15.5) % Plt Count 82 L (150-450) k/uL Neutrophils % (Manual) 68 % Lymphocytes % (Manual) 18 % Monocytes % (Manual) 14 % Neutrophils # (Manual) 1.29 L (1.3-7.7) k/uL Lymphocytes # (Manual) 0.34 L (1.0-4.8) k/uL Monocytes # (Manual) 0.27 (0-1.0) k/uL Nucleated RBCs 0 (0-0) /100 WBC Manual Slide Review Performed Hypochromasia Marked Poikilocytosis (manual Present Anisocytosis Moderate PT (9.0-12.0) sec INR (<1.2) APTT (22.0-30.0) sec Sodium 141 (137-145) mmol/L Potassium 3.9 (3.5-5.1) mmol/L Chloride 115 H (98-107) mmol/L Carbon Dioxide 19 L (22-30) mmol/L Anion Gap 7 mmol/L BUN 12 (9-20) mg/dL Creatinine 0.52 L (0.66-1.25) mg/dL Est GFR (CKD-EPI)AfAm >90 (>60 ml/min/1.73 sqM) Est GFR (CKD-EPI)NonAf >90 (>60 ml/min/1.73 sqM) Glucose 98 (74-99) mg/dL Calcium 7.5 L (8.4-10.2) mg/dL Magnesium 1.8 (1.6-2.3) mg/dL Total Bilirubin 3.0 H (0.2-1.3) mg/dL AST 49 (17-59) U/L ALT 35 (21-72) U/L Alkaline Phosphatase 168 H (38-126) U/L Total Creatine Kinase 105 (55-170) U/L CK-MB (CK-2) 0.8 (0.0-2.4) ng/mL CK-MB (CK-2) Rel Index 0.8 Troponin I <0.012 (0.000-0.034) ng/mL Total Protein 6.3 (6.3-8.2) g/dL Albumin 2.4 L (3.5-5.0) g/dL 11/26/17 Range/Units 12:40 WBC (3.8-10.6) k/uL RBC (4.30-5.90) m/uL Hgb (13.0-17.5) gm/dL Hct (39.0-53.0) % MCV (80.0-100.0) fL MCH (25.0-35.0) pg MCHC (31.0-37.0) g/dL RDW (11.5-15.5) % Plt Count (150-450) k/uL Neutrophils % (Manual) % Lymphocytes % (Manual) % Monocytes % (Manual) % Neutrophils # (Manual) (1.3-7.7) k/uL Lymphocytes # (Manual) (1.0-4.8) k/uL Monocytes # (Manual) (0-1.0) k/uL Nucleated RBCs (0-0) /100 WBC Manual Slide Review Hypochromasia Poikilocytosis (manual Anisocytosis PT 14.1 H (9.0-12.0) sec INR 1.5 H (<1.2) APTT 28.6 (22.0-30.0) sec Sodium (137-145) mmol/L Potassium (3.5-5.1) mmol/L Chloride (98-107) mmol/L Carbon Dioxide (22-30) mmol/L Anion Gap mmol/L BUN (9-20) mg/dL Creatinine (0.66-1.25) mg/dL Est GFR (CKD-EPI)AfAm (>60 ml/min/1.73 sqM) Est GFR (CKD-EPI)NonAf (>60 ml/min/1.73 sqM) Glucose (74-99) mg/dL Calcium (8.4-10.2) mg/dL Magnesium (1.6-2.3) mg/dL Total Bilirubin (0.2-1.3) mg/dL AST (17-59) U/L ALT (21-72) U/L Alkaline Phosphatase (38-126) U/L Total Creatine Kinase (55-170) U/L CK-MB (CK-2) (0.0-2.4) ng/mL CK-MB (CK-2) Rel Index Troponin I (0.000-0.034) ng/mL Total Protein (6.3-8.2) g/dL Albumin (3.5-5.0) g/dL Disposition <Marty Dougherty - Last Filed: 11/26/17 14:59> <Serg Cooley - Last Filed: 11/26/17 15:16> Clinical Impression: Fall, Right knee pain, Leukopenia, Thrombocytopenia, Inability to ambulate due to knee Disposition: ADMITTED IP TO THIS HOSP Condition: Stable Referrals: Narayan Trevino MD [Primary Care Provider] - 1-2 days
[2017-11-26 13:04] LABS: Anisocytosis Moderate; HCT 32.3 % (39.0-53.0); HGB 9.7 gm/dL (13.0-17.5); Hypochromasia Marked; MCH 26.1 pg (25.0-35.0); MCHC 30.1 g/dL (31.0-37.0); MCV 86.7 fL (80.0-100.0); Platelet Count 82 k/uL (150-450); RBC 3.72 m/uL (4.30-5.90); RDW 20.2 % (11.5-15.5)
[2017-11-26 13:08] LABS: INR 1.5 (<1.2); Partial Thromboplastin Time 28.6 sec (22.0-30.0); Prothrombin Time 14.1 sec (9.0-12.0); WBC 1.9 k/uL (3.8-10.6)
[2017-11-26 13:10] LABS: ALT 35 U/L (21-72); AST 49 U/L (17-59); Albumin 2.4 g/dL (3.5-5.0); Alkaline Phosphatase 168 U/L (38-126); Anion Gap 7 mmol/L; Blood Urea Nitrogen 12 mg/dL (9-20); Calcium 7.5 mg/dL (8.4-10.2); Carbon Dioxide 19 mmol/L (22-30); Chloride 115 mmol/L (98-107); Glucose 98 mg/dL (74-99); Magnesium 1.8 mg/dL (1.6-2.3); Potassium 3.9 mmol/L (3.5-5.1); Sodium 141 mmol/L (137-145); Total Protein 6.3 g/dL (6.3-8.2)
--- NOTE | 2017-11-26 13:16 | XR ---
EXAMINATION TYPE: XR chest 2V DATE OF EXAM: 11/26/2017 COMPARISON: 11/25/2016 INDICATION: Short of breath TECHNIQUE: Frontal and lateral views of the chest are obtained. FINDINGS: The heart size is normal. The pulmonary vasculature is normal. The lungs are clear. IMPRESSION: 1. No acute pulmonary process.
[2017-11-26 13:20] LABS: Creatine Kinase 105 U/L (55-170)
[2017-11-26 13:32] LABS: Creatine Kinase MB 0.8 ng/mL (0.0-2.4); Troponin I <0.012 ng/mL (0.000-0.034)
[2017-11-26 13:58] LABS: Lymphocytes # (M) 0.34 k/uL (1.0-4.8); Monocytes # (M) 0.27 k/uL (0-1.0); Neutrophils # (M) 1.29 k/uL (1.3-7.7); Neutrophils % (M) 68 %; Nucleated Red Blood Cells 0 /100 WBC (0-0); Poikilocytosis (M) Present; Total Cells Counted 100
[2017-11-26] MEDS ORDERED: NALOXONE 0.4 MG/ML 1 ML VIAL IV PRN (15:01)
[2017-11-26] MEDS: SODIUM CHLORIDE 0.9% 1,000 ML IV SCH (15:40)
--- NOTE | 2017-11-26 18:22 | XR ---
EXAMINATION TYPE: XR knee complete RT DATE OF EXAM: 11/26/2017 COMPARISON: NONE HISTORY: Knee pain TECHNIQUE: 3 views FINDINGS: There is some mild deformity of the medial tibial condyle that is suggestive of a minimally depressed fracture of the medial tibial plateau. There is small knee joint effusion. There is no dis location. IMPRESSION: There is probably medial tibial plateau fracture with a few millimeter depression of the fragment.
[2017-11-26] MEDS: HYDROcodone/APAP 5-325MG 1 EACH TAB PO PRN (18:47)
[2017-11-26] MEDS: MORPHINE SULFATE 4 MG/ML SYRINGE IV PRN (21:37)
[2017-11-27] MEDS: HYDROcodone/APAP 5-325MG 1 EACH TAB PO PRN ×6 (01:46→23:40)
[2017-11-27] MEDS: SODIUM CHLORIDE 0.9% 1,000 ML IV SCH ×2 (06:04→19:20)
[2017-11-27] MEDS: MORPHINE SULFATE 4 MG/ML SYRINGE IV PRN ×2 (08:35→19:55)
[2017-11-27] MEDS ORDERED: ALBUTEROL NEBULIZED 2.5 MG/3 ML INHALATION PRN ×2 (08:49→10:46)
--- NOTE | 2017-11-27 12:36 | P.HPIM ---
History of Present Illness 62-year-old male was admitted to the emergency room complaints of right knee pain patient had a fall and was unable to ambulate. Patient has history of extensive right ankle reconstruction per Dr. Murray Okeefe. Patient has history of ORIF right hip from [facility]. Patient has right knee swelling at this point. Patient has pancytopenia is not been able to follow-up with hematology an outpatient setting so will be consulting Dr. Moore Review of Systems Constitutional: Reports weakness Musculoskeletal: right: ankle pain, ankle stiffness, hip pain, knee stiffness, knee swelling Past Medical History Past Medical History: GERD/Reflux, Hypertension, Pneumonia Additional Past Medical History / Comment(s): COPD-02 2-4 liters, hypertension, acid reflux, fracture of the right ankle with an extensive reconstruction surgery, a previous hospitalization for a right subtrochanteric femur fracture post ORIF History of Any Multi-Drug Resistant Organisms: None Reported Past Surgical History: Orthopedic Surgery Additional Past Surgical History / Comment(s): right leg surgery 2008, right hip ORIF for subtrochanteric fracture has screws/maurilio, lt ankle tendon repair Past Anesthesia/Blood Transfusion Reactions: No Reported Reaction Smoking Status: Former smoker - Past Family History Mother Family Medical History: GERD/Reflux Additional Family Medical History / Comment(s): of crohn's disease Father Family Medical History: Diabetes Mellitus Medications and Allergies Home Medications Medication Instructions Recorded Confirmed Type Albuterol Sulfate [Proair Hfa] 2 puff INHALATION RT-QID PRN 09/05/14 11/26/17 History Multivit-Min/FA/Lycopen/Lutein 1 tab PO DAILY 11/15/16 11/26/17 History [Centrum Silver Tablet] Acetaminophen Tab [Tylenol Tab] 325 - 650 mg PO QID PRN 09/20/17 11/26/17 History Albuterol Nebulized [Ventolin 2.5 mg INHALATION RT-QID PRN 11/26/17 11/26/17 History Nebulized] Allergies Allergy/AdvReac Type Severity Reaction Status Date / Time No Known Allergies Allergy Verified 11/26/17 11:01 Physical Exam Vitals: Vital Signs Temp Pulse Pulse Resp BP BP Pulse Ox 11/27/17 07:00 98.1 F 98 18 152/83 94 L 11/26/17 22:48 98.0 F 94 20 154/81 94 L 11/26/17 16:33 98.2 F 109 H 18 170/80 92 L 11/26/17 15:42 98.1 F 100 18 155/79 95 Intake and Output 11/26/17 11/27/17 11/27/17 22:59 06:59 14:59 Intake Total 300 600 Output Total 125 325 Balance 175 275 Intake: IV 300 600 Sodium Chloride 0.9% 1, 300 600 000 ml @ 75 mls/hr IV . [id number] [facility] Rx#:[id number] Output: Urine 125 325 Other: Voiding Method Urinal - Constitutional General appearance: mild distress - EENT Eyes: PERRLA Ears: bilateral: normal - Neck Neck: normal ROM - Respiratory Respiratory: bilateral: diminished - Cardiovascular Rhythm: regular - Gastrointestinal General gastrointestinal: soft - Integumentary (Draining wound right ankle Integumentary: normal - Neurologic Neurologic: CNII-XII intact - Musculoskeletal Musculoskeletal: right sided weakness - Psychiatric Psychiatric: A&O x's 3, appropriate affect, intact judgment & insight Results CBC & Chem 7: 11/26/17 12:40 11/26/17 12:40 Labs: Abnormal Lab Results - Last 24 Hours (Table) 11/26/17 11/26/17 11/26/17 Range/Units 12:40 12:40 12:40 WBC 1.9 L* (3.8-10.6) k/uL RBC 3.72 L (4.30-5.90) m/uL Hgb 9.7 L (13.0-17.5) gm/dL Hct 32.3 L (39.0-53.0) % MCHC 30.1 L (31.0-37.0) g/dL RDW 20.2 H (11.5-15.5) % Plt Count 82 L (150-450) k/uL Neutrophils # (Manual) 1.29 L (1.3-7.7) k/uL Lymphocytes # (Manual) 0.34 L (1.0-4.8) k/uL PT 14.1 H (9.0-12.0) sec INR 1.5 H (<1.2) Chloride 115 H (98-107) mmol/L Carbon Dioxide 19 L (22-30) mmol/L Creatinine 0.52 L (0.66-1.25) mg/dL Calcium 7.5 L (8.4-10.2) mg/dL Total Bilirubin 3.0 H (0.2-1.3) mg/dL Alkaline Phosphatase 168 H (38-126) U/L Albumin 2.4 L (3.5-5.0) g/dL Chest x-ray: report reviewed Thrombosis Risk Factor Assmnt - Choose All That Apply Each Factor Represents 1 point: Abnormal pulmonary function (COPD), Obesity ( BMI >25) Each Risk Factor Represents 2 Points: Age 61-74 years Other congenital or acquired thrombophilia - If yes, enter type in comment: No Thrombosis Risk Factor Assessment Total Risk Factor Score: 4 Thrombosis Risk Factor Assessment Level: Moderate Risk Assessment and Plan Plan: Assessment Fall right knee pain Pancytopenia Gait dysfunction secondary to right knee pain Right ankle cellulitis with history of extensive reconstruction of surgery History of ORIF right hip [facility] GERD COPD Hypertension Plan Consultation with orthopedics Consultation Dr. Moore regarding pancytopenia Right ankle cellulitis consultation Dr. Hamlin
--- NOTE | 2017-11-27 18:07 | P.CNOR ---
History of Present Illness - HPI Consult date: 11/27/17 Consult reason: joint pain History of present illness: This is a 62-year-old gentleman who presented to [facility] on 11/26/2017 with regards to right lower extremity pain. Patient states that he was at his son's wedding the day before and had a trip and fall involving the right leg. He cannot remove the exact mechanism of fall, but he had immediate pain. On arrival to the hospital, imaging and lab tests were done. Patient's labs were very abnormal, he was admitted to the oncology floor for further monitoring. Multiple x-rays were taken including of the right hip, right knee, right foot and ankle, right tib-fib. Images of the right hip reviewed previous hardware, with possible new lucencies present. X-rays of the right knee the report questioning medial tibial plateau fracture. X-rays of the foot and ankle were positive for chronic deformity. Patient originally had a subtrochanteric fracture on the right hip back [place] [address] [facility]. Currently there was failure of the components, he then had another surgery done a [facility] by the orthopedic trauma surgeon on the right hip in 2016. Since then he hasn't had any acute problems. Patient has a very complex history involving his right ankle. He has had multiple surgeries by using this, including a skin graft of some type on the lateral aspect. He states that he's had a lateral wound present for a long time, it has been stable until recently. After the fall on that ankle, he noted the wound had started to drain once again on the lateral side. The day after the fall at his son's wedding, patient noticed that he was shaking quite a bit. He denies any recent history of this. Dr. Narayan Vasques nurse practitioner was in the room when I evaluated the patient today. She mentioned that they have been trying to get the patient see Dr. Kruse from hematology/oncology. At bedside today, patient notes discomfort around the right knee, also over the tibial tubercle. He notes some radiating pain into the foot and ankle also. He denies any acute pain involving the right hip. He denies any pain involving the left upper or lower extremity. Patient states that he doesn't ambulate very much at his home. He does utilize a wheelchair quite often. Review of Systems Constitutional: Reports as per HPI Past Medical History Past Medical History: GERD/Reflux, Hypertension, Pneumonia Additional Past Medical History / Comment(s): COPD-02 2-4 liters, hypertension, acid reflux, fracture of the right ankle with an extensive reconstruction surgery, a previous hospitalization for a right subtrochanteric femur fracture post ORIF History of Any Multi-Drug Resistant Organisms: None Reported Past Surgical History: Orthopedic Surgery Additional Past Surgical History / Comment(s): right leg surgery 2008, right hip ORIF for subtrochanteric fracture has screws/maurilio, lt ankle tendon repair Past Anesthesia/Blood Transfusion Reactions: No Reported Reaction Smoking Status: Former smoker - Past Family History Mother Family Medical History: GERD/Reflux Additional Family Medical History / Comment(s): of crohn's disease Father Family Medical History: Diabetes Mellitus Medications and Allergies Home Medications Medication Instructions Recorded Confirmed Type Albuterol Sulfate [Proair Hfa] 2 puff INHALATION RT-QID PRN 09/05/14 11/26/17 History Multivit-Min/FA/Lycopen/Lutein 1 tab PO DAILY 11/15/16 11/26/17 History [Centrum Silver Tablet] Acetaminophen Tab [Tylenol Tab] 325 - 650 mg PO QID PRN 09/20/17 11/26/17 History Albuterol Nebulized [Ventolin 2.5 mg INHALATION RT-QID PRN 11/26/17 11/26/17 History Nebulized] Allergies Allergy/AdvReac Type Severity Reaction Status Date / Time No Known Allergies Allergy Verified 11/26/17 11:01 Physical Examination Right lower extremity: Hip-logroll maneuver reproduces no groin pain. He is nontender with palpation over the greater trochanter. Knee-obvious effusion present over the right knee. No warmth present over the knee when palpated, no erythema or open lesions present. His range of motion is limited, he has full extension, he can flex to about 60 there is pain reproduced over the anterior aspect of the knee. Notable swelling present throughout the lower extremity. Ankle-obvious deformity present, there is a wound on the lateral aspect of the ankle, there is drainage present. No skin breakdown throughout multiple toes. I'm unable to appreciate any open wounds on the plantar aspect of dorsal aspect of the foot Sensation to light touch throughout that extremities intact, calf soft no tenderness with palpation. Results - Labs Labs: H & H 11/26/17 Range/Units 12:40 Hgb 9.7 L (13.0-17.5) gm/dL Hct 32.3 L (39.0-53.0) % Coagulation 11/26/17 Range/Units 12:40 INR 1.5 H (<1.2) Result Diagrams: 11/26/17 12:40 11/26/17 12:40 Assessment and Plan Plan: Imaging: Multiple x-rays were taken, including right knee, right femur, right tib-fib, right foot and ankle. Images demonstrate previous surgical fixation of the right hip, report mentions possible nonunion towards the proximal femur. Images of the right knee, report states possible medial tibial plateau. Obvious arthritic changes noted more along the medial joint line with joint space narrowing. Negative for fractures and of the tib-fib. Chronic deformity present throughout the right foot and ankle. Assessment: 1. Right knee pain 2. Right knee hemarthrosis 3. Right knee osteoarthritis 4. Chronic right foot deformity, history of previous surgeries 5. Previous right hip fracture with 2 separate surgeries, most recent [facility] in 2016 6. Multiple medical comorbidities Plan: I was able to discuss the case, including the physical exam findings and imaging studies with my attending Dr. Tompkins. With regards to the knee, I did do an aspiration at bedside today and there was notable blood. Due to that I will order a computed tomography scan of the knee without contrast to rule out fracture. See procedure note for further detail of aspiration. Nonweightbearing right lower extremity at this time Infectious disease has been consulted with regards to right foot/ankle wound Preboarder/oncologist and consult at due to significant leukopenia Medical recommendations Further recommendations to follow Time with Patient: Less than 30
--- NOTE | 2017-11-27 18:10 | P.PCN ---
Date of Procedure: 11/27/17 Preoperative Diagnosis: Right knee effusion Postoperative Diagnosis: Right knee hemarthrosis Procedure(s) Performed: Aspiration right knee with intra-articular cortisone injection Anesthesia: local Surgeon: Brady Finnegan Estimated Blood Loss (ml): 0 Pathology: none sent Condition: stable Disposition: no change Indications for Procedure: Right knee effusion and pain Description of Procedure: Discussed with patient risks and benefits of the procedure at bedside today, he is in agreement and would like to proceed. Patient was placed in the supine position. The knee was prepped with 1 ChloraPrep swab and one alcohol swabs. A 20-gauge needle was used to inject 3 mL 1% plain lidocaine via the suprapatellar approach. Then aspirated 35 mL of bloody serosanguineous fluid from the knee. I then switched wrenches and placed 1 mL of 1% plain lidocaine, 1 mL of 0.25% Marcaine, 40 mg of Depo-Medrol into the knee. Patient tolerated the procedure well, bandages in place.
--- NOTE | 2017-11-27 22:24 | CT ---
EXAMINATION TYPE: CT knee RT wo con DATE OF EXAM: 11/27/2017 COMPARISON: None HISTORY: Knee pain post fall. CT DLP: 245.8 mGycm Automated exposure control for dose reduction was used. FINDINGS: There is a nondisplaced buckle fracture of the medial tibial condyle. There is slight impaction of th e metaphysis with linear impaction line across the metaphysis. There is fracture line extending to th e tibial spine. There is probably a also a horizontal fracture through the lateral tibial metaphysis. There is nondisplaced fracture of the head of the fibula. The distal femur appears intact. There is osteopenia. IMPRESSION: NONDISPLACED FIBULAR HEAD FRACTURE. NONDISPLACED TRANSVERSE FRACTURE OF THE PROXIMAL TIBIAL METAPHYSI S WELL VERTICAL FRACTURE OF THE PROXIMAL TIBIA AT THE TIBIAL SPINES. KNEE JOINT EFFUSION. OSTEO PENIA.
[2017-11-27] MEDS: CEFEPIME 2 GM in SODIUM CHLORIDE 0.9% 50 ML IVPB SCH (23:21)
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
[2017-11-28] MEDS: HYDROcodone/APAP 5-325MG 1 EACH TAB PO PRN ×5 (03:49→23:53)
[2017-11-28] MEDS: SODIUM CHLORIDE 0.9% 1,000 ML IV SCH (08:46)
[2017-11-28] MEDS: CEFEPIME 2 GM in SODIUM CHLORIDE 0.9% 50 ML IVPB SCH ×3 (08:54→23:53)
--- NOTE | 2017-11-28 10:27 | P.PN ---
Subjective Progress Note Date: 11/28/17 Principal diagnosis: Right knee hemarthrosis, right knee medial tibial plateau fracture, right tibial spine fracture, right proximal fibular head fracture, right ankle wound Patient is seen today resting in his hospital bed, he appears comfortable. He notes the pain in the right knee has improved, he notes swelling be improved. He still notes pain over the anterior proximal aspect of the tibia. He denies any pain involving his right hip. He denies any fevers or chills at this time. Objective - Vital Signs Vital signs: Vital Signs Temp 97.7 F 11/28/17 07:00 Pulse 105 H 11/28/17 08:40 Resp 20 11/28/17 08:40 BP 128/69 11/28/17 07:00 Pulse Ox 93 L 11/28/17 07:00 Intake & Output 11/27/17 11/28/17 11/28/17 18:59 06:59 18:59 Intake Total 600 300 Output Total 200 Balance 600 100 Intake: IV 600 300 Sodium Chloride 0.9% 1, 600 300 000 ml @ 75 mls/hr IV . [id number] [facility] Rx#:[id number] Output: Urine 200 Other: Voiding Method Urinal Urinal # Voids 4 - Exam Right lower extremity: Hip-no pain with logroll maneuver, no tenderness to palpation over the proximal femur including the greater trochanter Knee-effusion has improved, bandages in place in the suprapatellar region on the lateral aspect. Range of motion has improved. Tenderness with palpation along the iliotibial tibial plateau, over the tibial spine and fibular head. No significant ecchymosis present Sensory exam to light touch that the extremity is intact, dorsalis pedis pulses 2+ - Labs CBC & Chem 7: 11/26/17 12:40 11/26/17 12:40 Labs: Microbiology - Last 24 Hours (Table) 11/27/17 21:00 Gram Stain - Preliminary Ankle - Right Wound Culture - Preliminary Assessment and Plan Plan: Assessment: 1. Right knee hemarthrosis 2. Right knee osteoarthritis 3. Right knee nondisplaced medial tibial plateau fracture 4. Right proximal tibial spine fracture 5. Right nondisplaced fibular head fracture 6. Chronic right lateral ankle wound, history multiple surgeries 7. History of previous right proximal femur fracture with multiple surgeries, stable hardware Plan: With regards to fractures involving the proximal right tibia, we will place patient into a knee immobilizer. He will utilize this at all times. Nonweightbearing to the right lower extremity. Ice and elevate often. No orthopedic surgical intervention at this time Patient's right hip remained stable at this time, he continues to have no discomfort. Recommend follow-up with his orthopedic traumatologist at [facility] symptoms present. Cultures were taken on the right ankle wound, await results and infectious disease recommendations Hematology/oncology has evaluated the patient and continues to follow with regards to leukopenia Internal medicine recommendations GI and DVT prophylaxis per medical recommendations We'll continue to follow patient during inpatient stay Time with Patient: Less than 30
--- NOTE | 2017-11-28 11:39 | P.PN ---
Subjective Patient resting in bed continues to complain of right knee pain. Had consultation with orthopedics plan is for a knee immobilizer. Awaiting consultation with hematology regarding pancytopenia Objective - Vital Signs Vital signs: Vital Signs Temp 97.7 F 11/28/17 07:00 Pulse 105 H 11/28/17 11:09 Resp 20 11/28/17 11:09 BP 128/69 11/28/17 07:00 Pulse Ox 93 L 11/28/17 07:00 Intake & Output 11/27/17 11/28/17 11/28/17 18:59 06:59 18:59 Intake Total 600 300 Output Total 200 Balance 600 100 Intake: IV 600 300 Sodium Chloride 0.9% 1, 600 300 000 ml @ 75 mls/hr IV . [id number] [facility] Rx#:[id number] Output: Urine 200 Other: Voiding Method Urinal Urinal # Voids 4 - Constitutional General appearance: Present: mild distress - EENT Eyes: Present: PERRLA Ears: bilateral: normal - Neck Neck: Present: normal ROM - Respiratory Respiratory: bilateral: CTA - Cardiovascular Rhythm: regular - Gastrointestinal General gastrointestinal: Present: soft - Integumentary Integumentary Comment(s): Cellulitis right ankle Integumentary: Present: normal - Neurologic Neurologic: Present: CNII-XII intact - Musculoskeletal Musculoskeletal: Present: generalized weakness - Psychiatric Psychiatric: Present: A&O x's 3, appropriate affect, intact judgment & insight - Labs CBC & Chem 7: 11/26/17 12:40 11/26/17 12:40 Labs: Microbiology - Last 24 Hours (Table) 11/27/17 21:00 Gram Stain - Preliminary Ankle - Right Wound Culture - Preliminary Assessment and Plan Plan: Assessment Fall Right knee fracture Pancytopenia Cellulitis right ankle Right ankle extensive reconstructive surgery Drs. Okeefe History of ORIF [facility] right hip History of GERD COPD Hypertension Plan Continue consultation with orthopedics Dr. Moore for pancytopenia Dr. Hamlin regarding cellulitis of the ankle
[2017-11-28 12:35] LABS: Reticulocyte % 2.1 % (0.5-2.0)
[2017-11-28 17:30] LABS: Rheumatoid Factor 16 IU/mL (0-15)
--- NOTE | 2017-11-28 22:20 | P.CONS ---
History of Present Illness - Reason for Consult Consult date: 11/28/17 pancytopenia Requesting physician: Padmini Lama - Chief Complaint fall - History of Present Illness Pt is a very pleasant male pt we have been asked to see due to pancytopenia, pt denies history of known low blood counts, no history of cancer , he has had multiple injuries and infections in his right leg/ankle, he is currently admitted for fracture of right knee. Pt denies wt. loss, fevers, sweats, new or unusual bone pains, his skeletal injuries are due to trauma, no changes in appetite, nausea, cough, SOB, abd pain, changes in bowel or bladder habits, RLE swelling is chronic, denies history of liver disease, cirrhosis, does have a history of chronic ETOH use. Review of Systems 14 point ROS as stated in HPI Past Medical History Past Medical History: GERD/Reflux, Hypertension, Liver Disease, Pneumonia Additional Past Medical History / Comment(s): COPD-02 2-4 liters, hypertension, acid reflux, fracture of the right ankle with an extensive reconstruction surgery, a previous hospitalization for a right subtrochanteric femur fracture post ORIF History of Any Multi-Drug Resistant Organisms: None Reported Past Surgical History: Orthopedic Surgery Additional Past Surgical History / Comment(s): right leg surgery 2008, right hip ORIF for subtrochanteric fracture has screws/maurilio, lt ankle tendon repair Past Anesthesia/Blood Transfusion Reactions: No Reported Reaction Additional Psychological History / Comment(s): . Retired from [employer]. He has traveled nationally and internationally for his work, nothing recent. Pet dog in the home. Without a current tobacco smoker or alcohol user Smoking Status: Former smoker - Past Family History Mother Family Medical History: GERD/Reflux Additional Family Medical History / Comment(s): of crohn's disease Father Family Medical History: Diabetes Mellitus Medications and Allergies Home Medications Medication Instructions Recorded Confirmed Type Albuterol Sulfate [Proair Hfa] 2 puff INHALATION RT-QID PRN 09/05/14 11/26/17 History Multivit-Min/FA/Lycopen/Lutein 1 tab PO DAILY 11/15/16 11/26/17 History [Centrum Silver Tablet] Acetaminophen Tab [Tylenol Tab] 325 - 650 mg PO QID PRN 09/20/17 11/26/17 History Albuterol Nebulized [Ventolin 2.5 mg INHALATION RT-QID PRN 11/26/17 11/26/17 History Nebulized] Allergies Allergy/AdvReac Type Severity Reaction Status Date / Time No Known Allergies Allergy Verified 11/26/17 11:01 Physical Exam Vitals: Vital Signs Temp Pulse Resp BP Pulse Ox 11/28/17 15:54 102 H 22 11/28/17 13:12 97.7 F 102 H 22 137/67 94 L 11/28/17 11:09 105 H 20 11/28/17 08:40 105 H 20 11/28/17 07:00 97.7 F 105 H 20 128/69 93 L 11/27/17 22:15 97.9 F 89 18 133/76 92 L Intake and Output 11/28/17 11/28/17 11/28/17 06:59 14:59 22:59 Intake Total 290 Output Total 200 Balance 290 -200 Intake: Intake, IV Titration 50 Amount Cefepime 2 gm In Sodium 50 Chloride 0.9% 50 ml @ 100 mls/hr IVPB Q8HR [facility] Rx# :[id number] Oral 240 Output: Urine 200 Other: Voiding Method Urinal Urinal # Voids 4 3 2 - Constitutional General appearance: average body habitus, cooperative, no acute distress - EENT Eyes: anicteric sclerae, EOMI ENT: normal oropharynx - Neck Neck: no lymphadenopathy - Respiratory Respiratory: bilateral: CTA - Cardiovascular Heart sounds: normal: S1, S2 leg Peripheral Edema: right: 2+, left: None - Gastrointestinal General gastrointestinal: no absent bowel sounds, no decreased bowel sounds, no distended, no hepatomegaly, no hyperactive bowel sounds, normal bowel sounds, no organomegaly, no rigid, no scaphoid, soft, no splenomegaly, no tenderness, no umbilical hernia, no ventral hernia - Integumentary Integumentary: normal - Neurologic Neurologic: CNII-XII intact - Musculoskeletal Musculoskeletal: strength equal bilaterally - Psychiatric Psychiatric: A&O x's 3, appropriate affect, intact judgment & insight Results CBC & Chem 7: 11/26/17 12:40 11/26/17 12:40 Labs: Abnormal Lab Results - Last 24 Hours (Table) 11/28/17 Range/Units 11:58 Retic Count 2.1 H (0.5-2.0) % Microbiology - Last 24 Hours (Table) 11/27/17 21:00 Gram Stain - Preliminary Ankle - Right Wound Culture - Preliminary Strep agalactiae - (group b) Gram Neg Bacilli Comments: x ray reports reviewed Assessment and Plan (1) Pancytopenia Narrative/Plan: Pt counts noted to be slightly low/low normal for at least 3 years back in the medical record. Pt has suspect liver cirrhosis described on imaging and chronic ETOH use which affect CBC, exacerbated by injury. Punched out lesion in the bones are noted in x ray reports. Renal function WNL, Ca++ slightly low (corrected calcium level is WNL). Multiple labs have been ordered to evaluate for a possible underlying myeloma, anemia work up ordered. No bone marrow planned at this time, will await lab results. Further recommendations to follow CBC noted to be low but adequate for orthopedic procedures. Dr. Moore did discuss case with Orthopedic Surgeon INR noted to be elevated at 1.5, suspect related to liver disease. No immediate need for vit K correction unless procedures are planned. Current Visit: Yes Status: Acute Priority: High Code(s): D61.818 - OTHER PANCYTOPENIA SNOMED Code(s): 759907332
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
[2017-11-29] MEDS: SODIUM CHLORIDE 0.9% 1,000 ML IV SCH ×3 (04:44→23:44)
[2017-11-29] MEDS: CEFEPIME 2 GM in SODIUM CHLORIDE 0.9% 50 ML IVPB SCH ×3 (09:50→23:44)
[2017-11-29] MEDS: HYDROcodone/APAP 5-325MG 1 EACH TAB PO PRN ×4 (09:55→21:49)
--- NOTE | 2017-11-29 11:24 | P.PN ---
Subjective Progress Note Date: 11/29/17 Principal diagnosis: Right knee hemarthrosis, right knee medial tibial plateau fracture, right tibial spine fracture, right proximal fibular head fracture, right ankle wound Patient is seen today resting in his hospital bed, he appears comfortable. He notes the pain in the right knee has improved, he notes swelling be improved. He denies any pain involving his right hip. He denies any fevers or chills at this time. Objective - Vital Signs Vital signs: Vital Signs Temp 97.0 F L 11/29/17 05:00 Pulse 78 11/29/17 05:00 Resp 16 11/29/17 05:00 BP 137/66 11/29/17 05:00 Pulse Ox 96 11/29/17 05:00 Intake & Output 11/28/17 11/29/17 11/29/17 18:59 06:59 18:59 Intake Total 290 590 Output Total 200 600 Balance 90 -10 Intake: Intake, IV Titration 50 Amount Cefepime 2 gm In Sodium 50 Chloride 0.9% 50 ml @ 100 mls/hr IVPB Q8HR [facility] Rx# :[id number] Oral 240 590 Output: Urine 200 600 Other: Voiding Method Urinal Urinal # Voids 2 3 - Exam Right lower extremity: Hip-no pain with logroll maneuver, no tenderness to palpation over the proximal femur including the greater trochanter Knee-effusion has improved, bandages in place in the suprapatellar region on the lateral aspect. Range of motion has improved. Tenderness with palpation along the iliotibial tibial plateau, over the tibial spine and fibular head. No significant ecchymosis present Sensory exam to light touch that the extremity is intact, dorsalis pedis pulses 2+ - Labs CBC & Chem 7: 11/26/17 12:40 11/26/17 12:40 Labs: Abnormal Lab Results - Last 24 Hours (Table) 11/28/17 11/28/17 11/28/17 Range/Units 11:58 11:58 11:58 Retic Count 2.1 H (0.5-2.0) % Iron (65-175) ug/dL Iron Saturation (15.00-50.00) RBC Folate 1,198 H (280 - 791) ng/mL Rheumatoid Factor 16 H (0-15) IU/mL 11/28/17 Range/Units 11:58 Retic Count (0.5-2.0) % Iron 12 L (65-175) ug/dL Iron Saturation 4.00 L (15.00-50.00) RBC Folate (280 - 791) ng/mL Rheumatoid Factor (0-15) IU/mL Microbiology - Last 24 Hours (Table) 11/27/17 21:00 Gram Stain - Preliminary Ankle - Right Wound Culture - Preliminary Strep agalactiae - (group b) Gram Neg Bacilli Assessment and Plan Plan: Assessment: 1. Right knee hemarthrosis 2. Right knee osteoarthritis 3. Right knee nondisplaced medial tibial plateau fracture 4. Right proximal tibial spine fracture 5. Right nondisplaced fibular head fracture 6. Chronic right lateral ankle wound, history multiple surgeries 7. History of previous right proximal femur fracture with multiple surgeries, stable hardware Plan: Continue using the immobilizer. He will utilize this at all times. Nonweightbearing to the right lower extremity. Ice and elevate often. No orthopedic surgical intervention at this time Patient's right hip remained stable at this time, he continues to have no discomfort. Recommend follow-up with his orthopedic traumatologist at [facility] if symptoms present. Infectious disease recommendations Hematology/oncology recommendations Internal medicine recommendations GI and DVT prophylaxis per medical recommendations Patient will be scheduled to follow up with Dr. Mendoza in the outpatient setting for evaluation in 2 weeks, we'll be available for any further questions regarding patient. Time with Patient: Less than 30
--- NOTE | 2017-11-29 12:01 | P.PN ---
Subjective Patient evaluated by infectious disease under treatment. Patient being evaluated by hematology for pancytopenia. Continues with consultation with orthopedics regarding guarding knee fracture. Patient in the knee immobilizer Objective - Vital Signs Vital signs: Vital Signs Temp 97.0 F L 11/29/17 05:00 Pulse 78 11/29/17 05:00 Resp 16 11/29/17 05:00 BP 137/66 11/29/17 05:00 Pulse Ox 96 11/29/17 05:00 Intake & Output 11/28/17 11/29/17 11/29/17 18:59 06:59 18:59 Intake Total 290 590 Output Total 200 600 Balance 90 -10 Intake: Intake, IV Titration 50 Amount Cefepime 2 gm In Sodium 50 Chloride 0.9% 50 ml @ 100 mls/hr IVPB Q8HR [facility] Rx# :[id number] Oral 240 590 Output: Urine 200 600 Other: Voiding Method Urinal Urinal # Voids 2 3 - Constitutional General appearance: Present: mild distress - EENT Eyes: Present: PERRLA Ears: bilateral: normal - Neck Neck: Present: normal ROM - Respiratory Respiratory: bilateral: CTA - Cardiovascular Rhythm: regular - Gastrointestinal General gastrointestinal: Present: soft - Integumentary Integumentary: Present: normal - Neurologic Neurologic: Present: CNII-XII intact - Musculoskeletal Musculoskeletal Comment(s): Patient unable to ambulate from right knee fracture - Psychiatric Psychiatric: Present: A&O x's 3, appropriate affect, intact judgment & insight - Labs CBC & Chem 7: 11/26/17 12:40 11/26/17 12:40 Labs: Abnormal Lab Results - Last 24 Hours (Table) 11/28/17 11/28/17 11/28/17 Range/Units 11:58 11:58 11:58 Retic Count 2.1 H (0.5-2.0) % Iron (65-175) ug/dL Iron Saturation (15.00-50.00) RBC Folate 1,198 H (280 - 791) ng/mL Rheumatoid Factor 16 H (0-15) IU/mL 11/28/17 Range/Units 11:58 Retic Count (0.5-2.0) % Iron 12 L (65-175) ug/dL Iron Saturation 4.00 L (15.00-50.00) RBC Folate (280 - 791) ng/mL Rheumatoid Factor (0-15) IU/mL Microbiology - Last 24 Hours (Table) 11/27/17 21:00 Gram Stain - Preliminary Ankle - Right Wound Culture - Preliminary Strep agalactiae - (group b) Gram Neg Bacilli Assessment and Plan Plan: Assessment Fall Right knee fracture Pancytopenia iron deficient anemia Unable to ambulate secondary to knee fracture Cellulitis right ankle Chronic right hip pain history of [facility] History of GERD History of COPD History of hypertension Plan Continue consultation with orthopedics Dr. Benjamin Continue consultation with hematology regarding pancytopenia Continue consultation with infectious disease regarding right ankle ulcer
[2017-11-29] MEDS: SODIUM FERRIC GLUCONAT-SUCROSE 125 MG in SODIUM CHLORIDE 0.9% 100 ML IVPB SCH (12:30)
--- NOTE | 2017-11-29 13:46 | P.PN ---
Subjective Progress Note Date: 11/29/17 Principal diagnosis: leg trauma, pancytopenia Pt seen in f/u, his RLE swelling is much improved, less pain, he is tolerating oral intake, good appetite, no fever, SOB, cough, increased O2 needs. Objective - Vital Signs Vital signs: Vital Signs Temp 97.0 F L 11/29/17 05:00 Pulse 78 11/29/17 08:35 Resp 16 11/29/17 08:35 BP 137/66 11/29/17 05:00 Pulse Ox 96 11/29/17 05:00 Intake & Output 11/28/17 11/29/17 11/29/17 18:59 06:59 18:59 Intake Total 290 590 240 Output Total 200 600 700 Balance 90 -10 -460 Intake: Intake, IV Titration 50 Amount Cefepime 2 gm In Sodium 50 Chloride 0.9% 50 ml @ 100 mls/hr IVPB Q8HR [facility] Rx# :[id number] Oral 240 590 240 Output: Urine 200 600 700 Other: Voiding Method Urinal Urinal Urinal # Voids 2 3 - Exam WDWN, A&O x4, NAD, respirations even and unlabored, pt can adjust body independently, RLE is in brace with sammy wrap, swelling is much improved, toes warm to touch. - Constitutional General appearance: Present: average body habitus, cooperative, no acute distress - EENT Eyes: Present: anicteric sclerae - Labs CBC & Chem 7: 11/26/17 12:40 11/26/17 12:40 Labs: Abnormal Lab Results - Last 24 Hours (Table) 11/28/17 11/28/17 11/28/17 Range/Units 11:58 11:58 11:58 Iron 12 L (65-175) ug/dL Iron Saturation 4.00 L (15.00-50.00) RBC Folate 1,198 H (280 - 791) ng/mL Rheumatoid Factor 16 H (0-15) IU/mL Microbiology - Last 24 Hours (Table) 11/27/17 21:00 Gram Stain - Preliminary Ankle - Right Wound Culture - Preliminary Strep agalactiae - (group b) Gram Neg Bacilli Assessment and Plan (1) Pancytopenia Narrative/Plan: Iron deficiency has been confirmed on labs (saturation 4%, ferritin 33), parenteral iron being supplemented, Rx for PO iron was sent to pt [facility] pharmacy. If no recent endoscopy then recommend referral for procedures. Other labs are pending. Pt can f/u outpatient with Dr. Moore for CBC monitoring and additional testing if needed. Current Visit: Yes Status: Acute Priority: High Code(s): D61.818 - OTHER PANCYTOPENIA SNOMED Code(s): 373078973
[2017-11-29 22:37] VITALS: RESP 16
[2017-11-30] MEDS: HYDROcodone/APAP 5-325MG 1 EACH TAB PO PRN ×3 (02:08→12:17)
[2017-11-30 05:59] VITALS: BP 152/90; PULSE 73; TEMP 97.7
[2017-11-30] MEDS: SODIUM FERRIC GLUCONAT-SUCROSE 125 MG in SODIUM CHLORIDE 0.9% 100 ML IVPB SCH (08:27)
[2017-11-30] MEDS: CEFEPIME 2 GM in SODIUM CHLORIDE 0.9% 50 ML IVPB SCH (10:40)
[2017-11-30 12:28] LABS: Albumin 2.44 g/dL (3.80-4.90); Gamma Globulin 2.18 g/dL (0.70-1.50); Protein, Total 6.2 g/dL (6.2-8.2)
[2017-11-30 12:48] LABS: Anisocytosis Moderate; Hypochromasia Marked; MCH 25.7 pg (25.0-35.0); MCHC 29.3 g/dL (31.0-37.0); MCV 87.6 fL (80.0-100.0); Mean Platelet Volume 7.9; Microcytosis Slight; RBC 3.88 m/uL (4.30-5.90); RDW 21.1 % (11.5-15.5); WBC 3.9 k/uL (3.8-10.6)
[2017-11-30 12:56] LABS: ALT 36 U/L (21-72); AST 38 U/L (17-59); Albumin 2.4 g/dL (3.5-5.0); Alkaline Phosphatase 147 U/L (38-126); Anion Gap 7 mmol/L; Blood Urea Nitrogen 11 mg/dL (9-20); Calcium 7.9 mg/dL (8.4-10.2); Carbon Dioxide 22 mmol/L (22-30); Chloride 109 mmol/L (98-107); Glucose 92 mg/dL (74-99); Platelet Count 130 k/uL (150-450); Potassium 3.8 mmol/L (3.5-5.1); Sodium 138 mmol/L (137-145); Total Bilirubin 2.3 mg/dL (0.2-1.3); Total Protein 6.4 g/dL (6.3-8.2)
[2017-11-30 14:21] LABS: Eosinophils # (M) 0.23 k/uL (0-0.7); Lymphocytes # (M) 0.66 k/uL (1.0-4.8); Metamyelocytes # (M) 0.04 k/uL (0); Metamyelocytes % 1 %; Monocytes # (M) 0.43 k/uL (0-1.0); Neutrophils # (M) 2.61 k/uL (1.3-7.7); Neutrophils % (M) 67 %; Nucleated Red Blood Cells 0 /100 WBC (0-0); Total Cells Counted 200
[2017-11-30 14:22] LABS: Poikilocytosis (M) Present
--- NOTE | 2017-11-30 14:55 | P.PN ---
Subjective Progress Note Date: 11/30/17 Principal diagnosis: Pancytopenia Patient seen in follow-up, awaiting blood work from today. He denies any bleeding, overall he is feeling better. Objective - Vital Signs Vital signs: Vital Signs Temp 97.7 F 11/30/17 05:00 Pulse 73 11/30/17 08:00 Resp 16 11/30/17 08:00 BP 152/90 11/30/17 05:00 Pulse Ox 95 11/30/17 05:00 Intake & Output 11/29/17 11/30/17 11/30/17 18:59 06:59 18:59 Intake Total 240 590 Output Total 700 1300 Balance -460 -710 Intake: Oral 240 590 Output: Urine 700 1300 Other: Voiding Method Urinal Urinal Urinal # Voids 3 - Constitutional General appearance: Present: cooperative, no acute distress - EENT Eyes: Present: EOMI, poor dentition ENT: Present: NA/AT, normal oropharynx - Neck Neck: Present: normal ROM - Respiratory Respiratory: bilateral: CTA - Cardiovascular Rhythm: regular Heart sounds: normal: S1, S2 - Peripheral edema leg Peripheral Edema: right: 2+ - Gastrointestinal General gastrointestinal: Present: distended, hepatomegaly, normal bowel sounds , soft - Integumentary Integumentary: Present: pale - Neurologic Neurologic: Present: CNII-XII intact - Musculoskeletal Musculoskeletal: Present: generalized weakness - Psychiatric Psychiatric: Present: A&O x's 3, appropriate affect, intact judgment & insight - Labs CBC & Chem 7: 11/30/17 12:14 11/30/17 12:14 Labs: Abnormal Lab Results - Last 24 Hours (Table) 11/28/17 11/30/17 11/30/17 Range/Units 11:58 12:14 12:14 RBC 3.88 L (4.30-5.90) m/uL Hgb 10.0 L (13.0-17.5) gm/dL Hct 34.0 L (39.0-53.0) % MCHC 29.3 L (31.0-37.0) g/dL RDW 21.1 H (11.5-15.5) % Plt Count 130 L D (150-450) k/uL Lymphocytes # (Manual) 0.66 L (1.0-4.8) k/uL Metamyelocytes # (Man) 0.04 H (0) k/uL Chloride 109 H (98-107) mmol/L Creatinine 0.51 L (0.66-1.25) mg/dL Calcium 7.9 L (8.4-10.2) mg/dL Total Bilirubin 2.3 H (0.2-1.3) mg/dL Alkaline Phosphatase 147 H (38-126) U/L Albumin 2.4 L (3.5-5.0) g/dL Albumin (PEP) 2.44 L (3.80-4.90) g/dL Sceko-5-Xyfwbtqta 0.42 L (0.60-1.00) g/dL Gamma Globulins 2.18 H (0.70-1.50) g/dL Free Tabor LC, Quant 6.38 H (0.33-1.94) mg/dL Free Lambda LC, Quant 3.94 H (0.57-2.63) mg/dL Microbiology - Last 24 Hours (Table) 11/27/17 21:00 Gram Stain - Preliminary Ankle - Right Wound Culture - Preliminary Strep agalactiae - (group b) Serratia marcescens Assessment and Plan Plan: (1) Pancytopenia Narrative/Plan: Iron deficiency has been confirmed on labs (saturation 4%, ferritin 33), parenteral iron being supplemented, Rx for PO iron was sent to pt [facility] pharmacy. If no recent endoscopy then recommend referral for procedures. Other labs are pending. Pt can f/u outpatient with Dr. Moore for CBC monitoring and additional testing if needed. - Likely secondary to underlying liver cirrhosis - 12/05/17 at 1:30pm follow-up has been made for patient with Dr. Moore
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
== END 2017-11-30 15:20 | disposition home health service (06) | DRG 563 ==
LOC: EC 10:33 → 5ONC 15:15
PROVIDERS: ADMIT Family Medicine; ATTEND Family Medicine
PROC: 0S9C3ZZ Drainage of Right Knee Joint, Percutaneous Approach (ICD-10-PCS; principal; 2017-11-27)
DX: S82.141A Displaced bicondylar fracture of right tibia, initial encounter for closed fracture (principal); M25.061 Hemarthrosis, right knee; D61.818 Other pancytopenia; L03.115 Cellulitis of right lower limb; L97.319 Non-pressure chronic ulcer of right ankle with unspecified severity; D50.9 Iron deficiency anemia, unspecified; G89.29 Other chronic pain; I10 Essential (primary) hypertension; J44.9 Chronic obstructive pulmonary disease, unspecified; K21.9 Gastro-esophageal reflux disease without esophagitis; M17.11 Unilateral primary osteoarthritis, right knee; W01.0XXA Fall on same level from slipping, tripping and stumbling without subsequent striking against object, initial encounter; Z83.3 Family history of diabetes mellitus; Z87.891 Personal history of nicotine dependence; Z79.899 Other long term (current) drug therapy; Z87.81 Personal history of (healed) traumatic fracture
CPT/HCPCS: 36415; 71046; 80053; 82550; 82553; 82607; 82728; 82747; 83540; 83550; 83735; 83883; 83921; 84165; 84484; 85025; 85045; 85610; 85730; 86038; 86334; 86431; 87070; 87077; 87186; 87205; 96374; 99285

== ENCOUNTER 2018-09-14 11:16 | Emergency (ER) | payer MEDICARE, BC ==
[2018-09-14 11:28] VITALS: RESP 18
[2018-09-14 12:01] LABS: Basophils % (A) 1 %; Eosinophils # (A) 0.2 k/uL (0-0.7); Eosinophils % (A) 4 %; HGB 14.1 gm/dL (13.0-17.5); Lymphocytes # (A) 0.9 k/uL (1.0-4.8); Lymphocytes % (A) 14 %; MCH 34.9 pg (25.0-35.0); MCHC 34.4 g/dL (31.0-37.0); MCV 101.5 fL (80.0-100.0); Macrocytosis Slight; Monocytes # (A) 0.5 k/uL (0-1.0); Monocytes % (A) 8 %; Neutrophils # (A) 4.5 k/uL (1.3-7.7); Neutrophils % (A) 69 %; Platelet Count 164 k/uL (150-450); RBC 4.04 m/uL (4.30-5.90); RDW 13.5 % (11.5-15.5); WBC 6.4 k/uL (3.8-10.6)
[2018-09-14] MEDS ORDERED: HYDROmorphone 1 MG/ML 1 ML SYRINGE IVP STA (12:10)
[2018-09-14] MEDS ORDERED: KETOROLAC 30 MG/ML 1 ML VIAL IVP STA (12:10)
[2018-09-14] MEDS ORDERED: SODIUM CHLORIDE 0.9% 1,000 ML IV ONE (12:10)
[2018-09-14] MEDS ORDERED: ONDANSETRON 4 MG/2 ML VIAL IVP STA (12:10)
[2018-09-14 12:14] LABS: ALT 18 U/L (21-72); AST 36 U/L (17-59); Albumin 3.1 g/dL (3.5-5.0); Alkaline Phosphatase 169 U/L (38-126); Amylase 55 U/L (30-110); Anion Gap 7 mmol/L; Blood Urea Nitrogen 12 mg/dL (9-20); Calcium 10.1 mg/dL (8.4-10.2); Carbon Dioxide 19 mmol/L (22-30); Chloride 113 mmol/L (98-107); Glucose 96 mg/dL (74-99); Lipase 72 U/L (23-300); Potassium 3.5 mmol/L (3.5-5.1); Sodium 139 mmol/L (137-145); Total Bilirubin 3.3 mg/dL (0.2-1.3); Total Protein 7.9 g/dL (6.3-8.2)
[2018-09-14] MEDS ORDERED: SODIUM CHLORIDE 0.9% 1,000 ML IV SCH (12:15)
--- NOTE | 2018-09-14 12:29 | ED ---
Abdominal Pain HPI - General Chief Complaint: Abdominal Pain Stated Complaint: Abd pain Time Seen by Provider: 09/14/18 11:31 Source: patient, RN notes reviewed, old records reviewed Mode of arrival: wheelchair Limitations: no limitations - History of Present Illness Initial Comments: Patient 62-year-old male presents for trauma today with complaints of intermittent right-sided abdominal pain. Patient states that the pain is more severe today. He is curled over in a ball. Patient states he's had normal stools normal urination. Patient denies any recent fevers or chills. Patient denies any recent fever, chills, shortness of breath, chest pain, back pain, , numbness or tingling, dysuria or hematuria, constipation or diarrhea, headaches or visual changes, or any other current symptoms - Related Data Home Medications Medication Instructions Recorded Confirmed Albuterol Sulfate [Proair Hfa] 2 puff INHALATION RT-QID PRN 09/05/14 11/26/17 Multivit-Min/FA/Lycopen/Lutein 1 tab PO DAILY 11/15/16 11/26/17 [Centrum Silver Tablet] Acetaminophen Tab [Tylenol] 325 - 650 mg PO QID PRN 09/20/17 11/26/17 Albuterol Nebulized [Ventolin 2.5 mg INHALATION RT-QID PRN 11/26/17 11/26/17 Nebulized] Previous Rx's Medication Instructions Recorded Ferrous Sulfate [Iron (65 MG 325 mg PO DAILY #90 tab 11/29/17 Elemental)] HYDROcodone/APAP 5-325MG [[place] 1 each PO Q6H PRN #12 tab 11/30/17 5-325] Levofloxacin [Levaquin] 500 mg PO DAILY #7 tab 11/30/17 Allergies Allergy/AdvReac Type Severity Reaction Status Date / Time No Known Allergies Allergy Verified 09/14/18 11:28 Review of Systems ROS Statement: Those systems with pertinent positive or pertinent negative responses have been documented in the HPI. ROS Other: All systems not noted in ROS Statement are negative. 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 MDRO Source:: Ankle Past Surgical History: Orthopedic Surgery Additional Past Surgical History / Comment(s): right leg surgery 2008, right hip ORIF for subtrochanteric fracture has screws/maurilio, lt ankle tendon repair Past Anesthesia/Blood Transfusion Reactions: No Reported Reaction Past Psychological History: No Psychological Hx Reported Smoking Status: Former smoker Past Alcohol Use History: None Reported Past Drug Use History: None Reported - Past Family History Mother Family Medical History: GERD/Reflux Additional Family Medical History / Comment(s): of crohn's disease Father Family Medical History: Diabetes Mellitus General Exam - General Exam Comments Initial Comments: 62-year-old male. Alert and oriented. No distress. Limitations: no limitations General appearance: alert, in no apparent distress Head exam: Present: atraumatic, normocephalic, normal inspection Eye exam: Present: normal appearance, PERRL, EOMI. Absent: scleral icterus, conjunctival injection, periorbital swelling ENT exam: Present: normal exam, mucous membranes moist Neck exam: Present: normal inspection. Absent: tenderness, meningismus, lymphadenopathy Respiratory exam: Present: normal lung sounds bilaterally. Absent: respiratory distress, wheezes, rales, rhonchi, stridor Cardiovascular Exam: Present: regular rate, normal rhythm, normal heart sounds. Absent: systolic murmur, diastolic murmur, rubs, gallop, clicks GI/Abdominal exam: Present: soft, tenderness (RUQ and RLQ tenderness), normal bowel sounds. Absent: distended, guarding, rebound, rigid Extremities exam: Present: normal inspection, full ROM, normal capillary refill. Absent: tenderness, pedal edema, joint swelling, calf tenderness Back exam: Present: normal inspection Neurological exam: Present: alert, oriented X3, CN II-XII intact Psychiatric exam: Present: normal affect, normal mood Skin exam: Present: warm, dry, intact, normal color. Absent: rash Course Vital Signs 09/14/18 11:25 Temperature 98.9 F Pulse Rate 103 H Respiratory 18 Rate Blood Pressure 126/74 O2 Sat by Pulse 93 L Oximetry Medical Decision Making - Medical Decision Making 62-year-old male presents to return today for complaints of cramping diffuse abdominal pain. He said some episodes of vomiting. Patient was given IV fluids labwork obtained. Patient's labwork was reviewed results they're unremarkable. His bilirubin is 3.3 at this time. It has been stable around 3 in the past. His liver enzymes otherwise were unremarkable. Amylase lipase are normal. Patient due to patient's pain upon arrival CT scan was completed. There is evidence of diverticulosis, nephrolithiasis. Evidence of cholelithiasis noted well. Patient's CT was negative for any significant acute findings related to patient's pain. Discussed the patient's colicky pain could be related to bilia ry colic related to stones. Discussed that he should follow-up with PCP robert. Discussed strict return parameters. - Lab Data Result diagrams: 09/14/18 11:40 09/14/18 11:40 Lab Results 09/14/18 09/14/18 09/14/18 Range/Units 11:40 11:40 13:00 WBC 6.4 (3.8-10.6) k/uL RBC 4.04 L (4.30-5.90) m/uL Hgb 14.1 (13.0-17.5) gm/dL Hct 41.0 (39.0-53.0) % MCV 101.5 H (80.0-100.0) fL MCH 34.9 (25.0-35.0) pg MCHC 34.4 (31.0-37.0) g/dL RDW 13.5 (11.5-15.5) % Plt Count 164 (150-450) k/uL Neutrophils % 69 % Lymphocytes % 14 % Monocytes % 8 % Eosinophils % 4 % Basophils % 1 % Neutrophils # 4.5 (1.3-7.7) k/uL Lymphocytes # 0.9 L (1.0-4.8) k/uL Monocytes # 0.5 (0-1.0) k/uL Eosinophils # 0.2 (0-0.7) k/uL Basophils # 0.0 (0-0.2) k/uL Macrocytosis Slight Sodium 139 (137-145) mmol/L Potassium 3.5 (3.5-5.1) mmol/L Chloride 113 H (98-107) mmol/L Carbon Dioxide 19 L (22-30) mmol/L Anion Gap 7 mmol/L BUN 12 (9-20) mg/dL Creatinine 0.71 (0.66-1.25) mg/dL Est GFR (CKD-EPI)AfAm >90 (>60 ml/min/1.73 sqM) Est GFR (CKD-EPI)NonAf >90 (>60 ml/min/1.73 sqM) Glucose 96 (74-99) mg/dL Calcium 10.1 (8.4-10.2) mg/dL Total Bilirubin 3.3 H (0.2-1.3) mg/dL AST 36 (17-59) U/L ALT 18 L (21-72) U/L Alkaline Phosphatase 169 H (38-126) U/L Total Protein 7.9 (6.3-8.2) g/dL Albumin 3.1 L (3.5-5.0) g/dL Amylase 55 (30-110) U/L Lipase 72 (23-300) U/L Urine Color Yellow Urine Appearance Clear (Clear) Urine pH 7.0 (5.0-8.0) Ur Specific [place] 1.018 (1.001-1.035) Urine Protein Negative (Negative) Urine Glucose (UA) Negative (Negative) Urine Ketones Negative (Negative) Urine Blood Negative (Negative) Urine Nitrite Negative (Negative) Urine Bilirubin Negative (Negative) Urine Urobilinogen <2.0 (<2.0) mg/dL Ur Leukocyte Esterase Negative (Negative) - Radiology Data Radiology results: report reviewed Emphysema changes within the lungs. Evidence of nodules sclerosis and liver. Stable low attenuating lesion in the left lobe of the liver. Stable left-sided renal cyst. 4 mm no instructing left lower pole renal calculus. Uncomplicated diverticular change following the sigmoid colon. Mild thickening of the bladder wall. Standard changes within the spine. Evidence of cholelithiasis. Disposition Clinical Impression: Abdominal pain, Nausea & vomiting, Biliary colic Disposition: HOME SELF-CARE Condition: Good Instructions (If sedation given, give patient instructions): Abdominal Pain (ED) Additional Instructions: Patient should've a bland diet. Follow up with primary care doctor on Sunday. Return to the emergency department if any alarming signs or symptoms occur. He may need further imaging studies such as a HIDA scan. Is patient prescribed a controlled substance at d/c from ED?: No Referrals: Narayan Trevino MD [Primary Care Provider] - 1-2 days Time of Disposition: 14:49
--- NOTE | 2018-09-14 12:30 | XR ---
EXAMINATION TYPE: XR KUB , 2 VIEWS DATE OF EXAM ORDERED: 09/14/2018 HISTORY: abdominal pain. COMPARISON: None. FINDINGS: ] Internal fixation of the right hip. I cannot confirm bony union. The abdominal gas pattern is within normal limits. There is no evidence of obstruction or free air. T here are phleboliths within the pelvis. IMPRESSION: NO ACUTE INTRA-ABDOMINAL ABNORMALITY.
[2018-09-14 13:14] LABS: Appearance,Urine Clear (Clear); Bilirubin,Urine Negative (Negative); Blood,Urine Negative (Negative); Color,Urine Yellow; Glucose,Urine (UA) Negative (Negative); Ketones,Urine Negative (Negative); Leukocyte Esterase,Urine Negative (Negative); Nitrite,Urine Negative (Negative); Protein,Urine Negative (Negative); Specific Gravity,Urine 1.018 (1.001-1.035); Urobilinogen,Urine <2.0 mg/dL (<2.0)
--- NOTE | 2018-09-14 13:16 | CT ---
EXAMINATION TYPE: CT abdomen pelvis w con DATE OF EXAM: 09/14/2018 REFERENCE: Previous study dated 02/24/2016. HISTORY: pain HISTORY: Mid abd pain, vomiting CT DLP: 761.3 mGy Automated exposure control for dose reduction was used. TECHNIQUE: Helical acquisition through the abdomen and pelvis was obtained following the oral ingesti on of without Oral Contrast and following intravenous administration of 100 mL of Isovue 300. The marlyn a was reformatted in axial, coronal and sagittal projections. FINDINGS: There are emphysematous changes within the lungs. There is no pleural or pericardial fluid . The heart is not enlarged. Within the abdomen, the liver is very nodular. There is a stable tiny cyst in the left lobe of the li pietro. No other definite liver masses seen. There are gallstones within the gallbladder. There is granu lomatous change within the spleen. Both adrenal glands are normal. There is a stable, simple appearing, 3.2 cm left renal cyst. There is a 3 to 4 mm calculus in the pos terior lower pole calyx on the left. There is mild fullness of the left renal pelvis. A definite uret elsy calculus is not seen. Visualized portions of the pancreas are unremarkable. There is no significant retroperitoneal, iliac or inguinal adenopathy. There is moderate atheromatous calcification of the visualized arterial tree. There is mild thickening of the bladder wall which may be due to chronic bladder outlet obstruction. The streak artifact through the pelvis from a sideplate in the right hip. There are scattered diverticula along the left side of the colon without radiographic evidence of div erticulitis. The appendix is unremarkable. Small bowel loops are of normal caliber. There is no free fluid and no free air. There is facet arthropathy in the lower lumbar spine. IMPRESSION: 1. EMPHYSEMATOUS CHANGES WITHIN THE LUNGS. 2. EVIDENCE OF NODULAR SCLEROSIS WITHIN THE LIVER. THERE IS A STABLE LOW ATTENUATING LESION IN THE LE FT LOBE OF THE LIVER. 3. STABLE LEFT-SIDED RENAL CYST. 4. 4 MM NONOBSTRUCTING LEFT LOWER POLE RENAL CALCULUS. 5. UNCOMPLICATED DIVERTICULAR CHANGE INVOLVING THE SIGMOID COLON. 6. MILD THICKENING OF THE BLADDER WALL. 7. DEGENERATIVE CHANGES WITHIN THE SPINE. 8. CHOLELITHIASIS.
[2018-09-14 14:59] VITALS: BP 144/87; PULSE 95; TEMP 98.1
== END 2018-09-14 15:15 | disposition home or self-care (01) ==
LOC: EC 11:16
DX: K80.50 Calculus of bile duct without cholangitis or cholecystitis without obstruction (principal); J43.9 Emphysema, unspecified; K76.89 Other specified diseases of liver; N28.1 Cyst of kidney, acquired; N20.0 Calculus of kidney; K80.20 Calculus of gallbladder without cholecystitis without obstruction; N32.89 Other specified disorders of bladder; K57.30 Diverticulosis of large intestine without perforation or abscess without bleeding; Z87.891 Personal history of nicotine dependence; Z83.79 Family history of other diseases of the digestive system
CPT/HCPCS: 36415; 80053; 82150; 83690; 85025; 81003; 74018; 74177; 99285; 96374; 96375 ×2; 96361 ×2; J2405; J1885; J1170; Q9967

== ENCOUNTER 2018-09-15 01:54 | Observation (INO) | payer MEDICARE, BC ==
[2018-09-15] MEDS ORDERED: ONDANSETRON 4 MG/2 ML VIAL IVP STA (04:38)
[2018-09-15] MEDS ORDERED: SODIUM CHLORIDE 0.9% 1,000 ML IV STA (04:38)
[2018-09-15] MEDS ORDERED: MORPHINE SULFATE 4 MG/ML SYRINGE IV STA (04:38)
--- NOTE | 2018-09-15 04:53 | ED ---
Abdominal Pain HPI - General Chief Complaint: Abdominal Pain Stated Complaint: abd pain-revisit Time Seen by Provider: 09/15/18 04:14 Source: patient Mode of arrival: wheelchair Limitations: no limitations - History of Present Illness Initial Comments: Real is a 62-year-old gentleman who was seen and evaluated in the emergency department yesterday for right upper quadrant epigastric abdominal pain. After thorough evaluation including labs and x-ray and CT was determined the patient's causes pain was likely symptomatically lithiasis. Patient was discharged home and advised to follow bland diet. Patient reports he is feeling well the time of discharge, he attempted to eat some plane boiled chicken breast and began feeling nauseated he then again had pain in his right upper quadrant and epigastrium. Patient reports that for nearly 3 hours he has felt nauseated but not been able to vomit the pain has improved but he was significantly uncomfo rtable and decided to come to the ER for reevaluation. Patient denies any associated chest pain, palpitations shortness of breath diarrhea or constipation. He denies any lower urinary tract symptoms. - Related Data Home Medications Medication Instructions Recorded Confirmed Albuterol Sulfate [Proair Hfa] 2 puff INHALATION RT-QID PRN 09/05/14 11/26/17 Multivit-Min/FA/Lycopen/Lutein 1 tab PO DAILY 11/15/16 11/26/17 [Centrum Silver Tablet] Acetaminophen Tab [Tylenol] 325 - 650 mg PO QID PRN 09/20/17 11/26/17 Albuterol Nebulized [Ventolin 2.5 mg INHALATION RT-QID PRN 11/26/17 11/26/17 Nebulized] Previous Rx's Medication Instructions Recorded Ferrous Sulfate [Iron (65 MG 325 mg PO DAILY #90 tab 11/29/17 Elemental)] HYDROcodone/APAP 5-325MG [[place] 1 each PO Q6H PRN #12 tab 11/30/17 5-325] Levofloxacin [Levaquin] 500 mg PO DAILY #7 tab 11/30/17 Allergies Allergy/AdvReac Type Severity Reaction Status Date / Time No Known Allergies Allergy Verified 09/15/18 02:08 Review of Systems ROS Statement: Those systems with pertinent positive or pertinent negative responses have been documented in the HPI. ROS Other: All systems not noted in ROS Statement are negative. 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 CONFIRMED BY [facility] MDRO Source:: Ankle Past Surgical History: Orthopedic Surgery Additional Past Surgical History / Comment(s): right leg surgery 2008, right hip ORIF for subtrochanteric fracture has screws/maurilio, lt ankle tendon repair Past Anesthesia/Blood Transfusion Reactions: No Reported Reaction Past Psychological History: No Psychological Hx Reported Smoking Status: Former smoker Past Alcohol Use History: None Reported Past Drug Use History: None Reported - Past Family History Mother Family Medical History: GERD/Reflux Additional Family Medical History / Comment(s): of crohn's disease Father Family Medical History: Diabetes Mellitus General Exam - General Exam Comments Initial Comments: Physical Exam GENERAL: Patient is well-developed and well-nourished. Patient is nontoxic Appears uncomfortable and dehydrated HENT: Normocephalic, Atraumatic. EYES: PERRL, EOMI PULMONARY: Unlabored respirations. No audible rales rhonchi or wheezing was noted. CARDIOVASCULAR: There is a regular rate and rhythm without any murmurs gallops or rubs. ABDOMEN: Soft, normal bowel sounds. tenderness to palpation right upper quadrant and epigastrium SKIN: Skin is clear with no lesions or rashes and otherwise unremarkable. : Deferred NEUROLOGIC: Patient is alert and oriented x3. Moving all extremities spontaneously MUSCULOSKELETAL: Normal extremities with adequate strength and full range of motion. No lower extremity swelling or edema. No calf tenderness. PSYCHIATRIC: Normal psychiatric evaluation. Limitations: no limitations Course Vital Signs 09/15/18 02:04 Temperature 98.3 F Pulse Rate 84 Respiratory 20 Rate Blood Pressure 143/84 O2 Sat by Pulse 95 Oximetry Medical Decision Making - Medical Decision Making The patient was seen and evaluated history is obtained from patient and review of medical record Labs and meds were ordered Labs reveal lipase is increasing, other labs seem to be improving however patient remains symptomatic and uncomfortable. At this time I will plan to place the patient in observation, plan for a ultrasound of the gallbladder in the morning and evaluation by GI and surgery. Patient agreeable with this plan. Admission orders were placed. - Lab Data Result diagrams: 09/15/18 04:50 09/15/18 04:50 Lab Results 09/15/18 09/15/18 Range/Units 04:50 04:50 WBC 4.9 (3.8-10.6) k/uL RBC 3.87 L (4.30-5.90) m/uL Hgb 13.3 (13.0-17.5) gm/dL Hct 39.2 (39.0-53.0) % MCV 101.5 H (80.0-100.0) fL MCH 34.5 (25.0-35.0) pg MCHC 34.0 (31.0-37.0) g/dL RDW 14.6 (11.5-15.5) % Plt Count 146 L (150-450) k/uL Neutrophils % 77 % Lymphocytes % 13 % Monocytes % 6 % Eosinophils % 1 % Basophils % 0 % Neutrophils # 3.8 (1.3-7.7) k/uL Lymphocytes # 0.6 L (1.0-4.8) k/uL Monocytes # 0.3 (0-1.0) k/uL Eosinophils # 0.1 (0-0.7) k/uL Basophils # 0.0 (0-0.2) k/uL Macrocytosis Slight Sodium 134 L (137-145) mmol/L Potassium 3.3 L (3.5-5.1) mmol/L Chloride 107 (98-107) mmol/L Carbon Dioxide 19 L (22-30) mmol/L Anion Gap 8 mmol/L BUN 12 (9-20) mg/dL Creatinine 0.65 L (0.66-1.25) mg/dL Est GFR (CKD-EPI)AfAm >90 (>60 ml/min/1.73 sqM) Est GFR (CKD-EPI)NonAf >90 (>60 ml/min/1.73 sqM) Glucose 109 H (74-99) mg/dL Calcium 9.6 (8.4-10.2) mg/dL Total Bilirubin 2.8 H (0.2-1.3) mg/dL AST 32 (17-59) U/L ALT 17 L (21-72) U/L Alkaline Phosphatase 150 H (38-126) U/L Total Protein 7.5 (6.3-8.2) g/dL Albumin 2.9 L (3.5-5.0) g/dL Amylase 102 (30-110) U/L Lipase 448 H (23-300) U/L Disposition Clinical Impression: Abdominal pain, Symptomatic cholelithiasis, Elevated lipase, Elevated bilirubin Disposition: ADMITTED IP TO THIS [facility] Condition: Stable Instructions (If sedation given, give patient instructions): Abdominal Pain (ED) Referrals: Narayan Trevino MD [Primary Care Provider] - 1-2 days
[2018-09-15 05:16] LABS: Basophils % (A) 0 %; Eosinophils # (A) 0.1 k/uL (0-0.7); Eosinophils % (A) 1 %; HCT 39.2 % (39.0-53.0); HGB 13.3 gm/dL (13.0-17.5); Lymphocytes # (A) 0.6 k/uL (1.0-4.8); Lymphocytes % (A) 13 %; MCH 34.5 pg (25.0-35.0); MCV 101.5 fL (80.0-100.0); Macrocytosis Slight; Mean Platelet Volume 7.2; Monocytes # (A) 0.3 k/uL (0-1.0); Monocytes % (A) 6 %; Neutrophils # (A) 3.8 k/uL (1.3-7.7); Neutrophils % (A) 77 %; Platelet Count 146 k/uL (150-450); RBC 3.87 m/uL (4.30-5.90); RDW 14.6 % (11.5-15.5); WBC 4.9 k/uL (3.8-10.6)
[2018-09-15 05:23] LABS: ALT 17 U/L (21-72); AST 32 U/L (17-59); African American GFR (CKD) >90 (>60 ml/min/1.73 sqM); Albumin 2.9 g/dL (3.5-5.0); Alkaline Phosphatase 150 U/L (38-126); Amylase 102 U/L (30-110); Anion Gap 8 mmol/L; Blood Urea Nitrogen 12 mg/dL (9-20); Calcium 9.6 mg/dL (8.4-10.2); Carbon Dioxide 19 mmol/L (22-30); Chloride 107 mmol/L (98-107); Glucose 109 mg/dL (74-99); Lipase 448 U/L (23-300); Potassium 3.3 mmol/L (3.5-5.1); Sodium 134 mmol/L (137-145); Total Bilirubin 2.8 mg/dL (0.2-1.3); Total Protein 7.5 g/dL (6.3-8.2)
[2018-09-15] MEDS ORDERED: ONDANSETRON 4 MG/2 ML VIAL IVP PRN (05:36)
[2018-09-15] MEDS ORDERED: NALOXONE 0.4 MG/ML 1 ML VIAL IV PRN (05:36)
[2018-09-15] MEDS: MORPHINE SULFATE 4 MG/ML SYRINGE IV PRN ×3 (08:51→18:08)
[2018-09-15] MEDS: SODIUM CHLORIDE 0.9% 1,000 ML IV SCH ×3 (08:52→22:39)
--- NOTE | 2018-09-15 09:26 | US ---
EXAMINATION TYPE: US gallbladder DATE OF EXAM: 09/15/2018 COMPARISON: Previous study dated 05/03/2016 as well as a recent CT scan dated 09/14/2018 CLINICAL HISTORY: Pain, elevated lipase - measure CBD please. Hypogastric pain. EXAM MEASUREMENTS: Liver Length: 10.0 cm Gallbladder Wall: 0.2 cm CBD: 0.3 cm Right Kidney: 11.7 x 6.3 x 5.2 cm US exam is technically limited due to overlying bowel gas Pancreas: partially obscured by bowel gas Liver: left lobe cyst = 0.6 x 0.6 x 0.5cm; heterogeneous with nodular appearance of borders, small r ight lobe Gallbladder: mixed, irregular hyperechoic mass with solid shadowing foci within mass and is non mobi le, which could represent sludge ball with stones vs. other internal mass; possible wall mass near fu ndus on images #[id number], and [id number]. Evidence for sonographic Willard's sign: no CBD: not well seen due to overlying bowel gas Right Kidney: No hydronephrosis or masses seen Limited views of the pancreas are unremarkable. The liver is normal in size. There is a 6 mm cyst in the left lobe of the liver. The liver is somewha t nodular. There is a nonshadowing mass within the gallbladder. This may represent a noncalcified stone or some sludge. The gallbladder wall measures 2 mm. There is no sonographic Willard's sign. This hepatic duct measures 3 mm. The right kidney is normal. IMPRESSION: 1. ABNORMAL GALLBLADDER. NONCALCIFIED SLUDGE VERSUS GALLBLADDER WALL MASS WOULD NEED TO BE CONSIDERED . 2. FINDINGS CONSISTENT WITH NODULAR CIRRHOSIS OF THE LIVER.
[2018-09-15 12:45] VITALS: BMI 26.4
[2018-09-15] MEDS ORDERED: Potassium Replacement Protocol 1 EACH MISC MISCELLANE PRN (13:50)
[2018-09-15] MEDS: POTASSIUM CHLORIDE ER 20 MEQ TAB.ER PO SCH (14:02)
[2018-09-15] MEDS ORDERED: ALBUTEROL NEBULIZED 2.5 MG/3 ML INHALATION PRN (14:40)
[2018-09-15] MEDS ORDERED: LORazepam 2 MG/ML INJ IV PRN ×3 (14:42)
--- NOTE | 2018-09-15 15:31 | P.GSCN ---
History of Present Illness Consult date: 09/15/18 History of present illness: This is a 62-year-old male presents with a chief complaint of abdominal pain mostly right lower quadrant and right flank. He states the pain comes in waves and is cramping in nature. He also has a history of alcohol cirrhosis. There was a finding of a questionable gallbladder mass on ultrasound. He denies any fevers or chills. States this pain came on and is not related to food. He has had a history of a kidney stone which he thinks he passed a few years ago. 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 Retired from [employer]. He has traveled nationally and internationally for his work, nothing recent. Pet dog in the home. Without a current tobacco smoker or alcohol user Smoking Status: Former smoker Past Alcohol Use History: None Reported Additional Past Alcohol Use History / Comment(s): Patient denies daily drinking, also denies more than 14 drinks in a week. Past Drug Use History: None Reported - Past Family History Mother Family Medical History: GERD/Reflux Additional Family Medical History / Comment(s): of crohn's disease Father Family Medical History: Diabetes Mellitus Medications and Allergies Home Medications Medication Instructions Recorded Confirmed Type Albuterol Sulfate [Proair Hfa] 2 puff INHALATION RT-QID PRN 09/05/14 09/15/18 History Multivit-Min/FA/Lycopen/Lutein 1 tab PO DAILY 11/15/16 09/15/18 History [Centrum Silver Tablet] Acetaminophen Tab [Tylenol] 325 - 650 mg PO QID PRN 09/20/17 09/15/18 History Albuterol Nebulized [Ventolin 2.5 mg INHALATION RT-QID PRN 11/26/17 09/15/18 History Nebulized] Ibuprofen [Motrin] 800 mg PO Q6HR 09/15/18 09/15/18 History Allergies Allergy/AdvReac Type Severity Reaction Status Date / Time No Known Allergies Allergy Verified 09/15/18 08:08 Surgical - Exam Osteopathic Statement: *. No significant issues noted on an osteopathic structural exam other than those noted in the History and Physical/Consult. Vital Signs Temp Pulse Resp BP Pulse Ox 98.3 F 84 20 143/84 95 09/15/18 02:04 09/15/18 02:04 09/15/18 02:04 09/15/18 02:04 09/15/18 02:04 - General no distress, chronically ill - Eyes PERRL - Neck trachea midline - Respiratory normal expansion, normal respiratory effort - Cardiovascular Rhythm: regular - Abdomen Soft mild distention mild tenderness palpation right lower quadrant - Psychiatric oriented to time, oriented to person, oriented to place Results - Labs 09/15/18 04:50 09/15/18 04:50 Abnormal Lab Results - Last 24 Hours (Table) 09/15/18 09/15/18 Range/Units 04:50 04:50 RBC 3.87 L (4.30-5.90) m/uL MCV 101.5 H (80.0-100.0) fL Plt Count 146 L (150-450) k/uL Lymphocytes # 0.6 L (1.0-4.8) k/uL Sodium 134 L (137-145) mmol/L Potassium 3.3 L (3.5-5.1) mmol/L Carbon Dioxide 19 L (22-30) mmol/L Creatinine 0.65 L (0.66-1.25) mg/dL Glucose 109 H (74-99) mg/dL Total Bilirubin 2.8 H (0.2-1.3) mg/dL ALT 17 L (21-72) U/L Alkaline Phosphatase 150 H (38-126) U/L Albumin 2.9 L (3.5-5.0) g/dL Lipase 448 H (23-300) U/L Diabetes panel 09/15/18 Range/Units 04:50 Sodium 134 L (137-145) mmol/L Potassium 3.3 L (3.5-5.1) mmol/L Chloride 107 (98-107) mmol/L Carbon Dioxide 19 L (22-30) mmol/L BUN 12 (9-20) mg/dL Creatinine 0.65 L (0.66-1.25) mg/dL Glucose 109 H (74-99) mg/dL Calcium 9.6 (8.4-10.2) mg/dL AST 32 (17-59) U/L ALT 17 L (21-72) U/L Alkaline Phosphatase 150 H (38-126) U/L Total Protein 7.5 (6.3-8.2) g/dL Albumin 2.9 L (3.5-5.0) g/dL Calcium panel 09/15/18 Range/Units 04:50 Calcium 9.6 (8.4-10.2) mg/dL Albumin 2.9 L (3.5-5.0) g/dL Pituitary panel 09/15/18 Range/Units 04:50 Sodium 134 L (137-145) mmol/L Potassium 3.3 L (3.5-5.1) mmol/L Chloride 107 (98-107) mmol/L Carbon Dioxide 19 L (22-30) mmol/L BUN 12 (9-20) mg/dL Creatinine 0.65 L (0.66-1.25) mg/dL Glucose 109 H (74-99) mg/dL Calcium 9.6 (8.4-10.2) mg/dL Adrenal panel 09/15/18 Range/Units 04:50 Sodium 134 L (137-145) mmol/L Potassium 3.3 L (3.5-5.1) mmol/L Chloride 107 (98-107) mmol/L Carbon Dioxide 19 L (22-30) mmol/L BUN 12 (9-20) mg/dL Creatinine 0.65 L (0.66-1.25) mg/dL Glucose 109 H (74-99) mg/dL Calcium 9.6 (8.4-10.2) mg/dL Total Bilirubin 2.8 H (0.2-1.3) mg/dL AST 32 (17-59) U/L ALT 17 L (21-72) U/L Alkaline Phosphatase 150 H (38-126) U/L Total Protein 7.5 (6.3-8.2) g/dL Albumin 2.9 L (3.5-5.0) g/dL Assessment and Plan Assessment: Alcoholic cirrhosis, non-shadowing mass in the gallbladder, hyperbilirubinemia Plan: Patient's hyperbilirubinemia is likely related to his cirrhosis. There is a non-shadowing mass within the gallbladder this could represent sludge however primary biliary cancer cannot be ruled out. Due to the patient's cirrhosis and this finding on ultrasound recommendation would be patient follow up with hepatobiliary surgeon as an outpatient. I do not believe patient requires an acute surgical intervention at this time.
--- NOTE | 2018-09-15 16:20 | P.HPIM ---
History of Present Illness 62-year-old male came in with the right lower quadrant crampy pain along with the right flank pain. Patient denied any fever chills. Patient denied any dysuria. Patient had a CAT scan yesterday which showed nonobstructive renal ca lculus was subsequently discharged comes back again with the same pain at that time ultrasound of the abdomen was obtained which showed possible mass in the gallbladder patient does have cirrhosis although his denies drinking alcohol regularly patient is having withdrawals at this time. General surgery evaluated the patient and they're recommending nonemergent the surgery by a hepatobiliary surgeon at a higher level facility for this gallbladder mass. Patient abdominal pain is better it appears like patient may have a stone which she passed. Patient appears to have alcohol withdrawals at this time because of which I will keep him here hydrate him. Patient will be on withdrawals CW protocol. Review of Systems REVIEW OF SYSTEMS: CONSTITUTIONAL: No fever, no malaise, no fatigue. HEENT: No recent visual problems or hearing problems. Denied any sore throat. CARDIOVASCULAR: No chest pain, orthopnea, PND, no palpitations, no syncope. PULMONARY: No shortness of breath, no cough, no hemoptysis. GASTROINTESTINAL: No diarrhea, NEUROLOGICAL: No headaches, no weakness, no numbness. HEMATOLOGICAL: Denies any bleeding or petechiae. GENITOURINARY: Denies any burning micturition, frequency, or urgency. MUSCULOSKELETAL/RHEUMATOLOGICAL: Denies any joint pain, swelling, or any muscle pain. ENDOCRINE: Denies any polyuria or polydipsia. The rest of the 14-point review of systems is negative. 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 Retired from [employer]. He has traveled nationally and internationally for his work, nothing recent. Pet dog in the home. Without a current tobacco smoker or alcohol user Smoking Status: Former smoker Past Alcohol Use History: None Reported Additional Past Alcohol Use History / Comment(s): Patient denies daily drinking, also denies more than 14 drinks in a week. Past Drug Use History: None Reported - Past Family History Mother Family Medical History: GERD/Reflux Additional Family Medical History / Comment(s): of crohn's disease Father Family Medical History: Diabetes Mellitus Medications and Allergies Home Medications Medication Instructions Recorded Confirmed Type Albuterol Sulfate [Proair Hfa] 2 puff INHALATION RT-QID PRN 09/05/14 09/15/18 History Multivit-Min/FA/Lycopen/Lutein 1 tab PO DAILY 11/15/16 09/15/18 History [Centrum Silver Tablet] Acetaminophen Tab [Tylenol] 325 - 650 mg PO QID PRN 09/20/17 09/15/18 History Albuterol Nebulized [Ventolin 2.5 mg INHALATION RT-QID PRN 11/26/17 09/15/18 History Nebulized] Ibuprofen [Motrin] 800 mg PO Q6HR 09/15/18 09/15/18 History Allergies Allergy/AdvReac Type Severity Reaction Status Date / Time No Known Allergies Allergy Verified 09/15/18 08:08 Physical Exam Vitals: Vital Signs Temp Pulse Pulse Resp BP BP Pulse Ox 09/15/18 14:12 97.7 F 93 18 168/77 92 L 09/15/18 11:55 97.3 F L 94 16 156/84 94 L 09/15/18 11:00 164/88 91 L 09/15/18 10:30 132/88 92 L 09/15/18 10:00 145/90 88 L 09/15/18 09:30 148/89 09/15/18 09:00 155/97 89 L 09/15/18 02:04 98.3 F 84 20 143/84 95 Intake and Output 09/15/18 09/15/18 09/15/18 06:59 14:59 22:59 Output Total 300 Balance -300 Output: Urine 300 Other: Voiding Method Urinal Weight 88.451 kg 88.451 kg PHYSICAL EXAMINATION: GENERAL: The patient is alert and oriented x3, not in any acute distress. Well developed, well nourished. HEENT: Pupils are round and equally reacting to light. EOMI. No scleral icterus. No conjunctival pallor. Normocephalic, atraumatic. No pharyngeal erythema. No thyromegaly. CARDIOVASCULAR: S1 and S2 present. No murmurs, rubs, or gallops. PULMONARY: Chest is clear to auscultation, no wheezing or crackles. ABDOMEN: Soft, nontender, nondistended, normoactive bowel sounds. No palpable organomegaly. MUSCULOSKELETAL: No joint swelling or deformity. EXTREMITIES: No cyanosis, clubbing, or pedal edema. NEUROLOGICAL: Gross neurological examination did not reveal any focal deficits. SKIN: No rashes. Results CBC & Chem 7: 09/15/18 04:50 09/15/18 04:50 Labs: Abnormal Lab Results - Last 24 Hours (Table) 09/15/18 09/15/18 Range/Units 04:50 04:50 RBC 3.87 L (4.30-5.90) m/uL MCV 101.5 H (80.0-100.0) fL Plt Count 146 L (150-450) k/uL Lymphocytes # 0.6 L (1.0-4.8) k/uL Sodium 134 L (137-145) mmol/L Potassium 3.3 L (3.5-5.1) mmol/L Carbon Dioxide 19 L (22-30) mmol/L Creatinine 0.65 L (0.66-1.25) mg/dL Glucose 109 H (74-99) mg/dL Total Bilirubin 2.8 H (0.2-1.3) mg/dL ALT 17 L (21-72) U/L Alkaline Phosphatase 150 H (38-126) U/L Albumin 2.9 L (3.5-5.0) g/dL Lipase 448 H (23-300) U/L Thrombosis Risk Factor Assmnt - Choose All That Apply Any of the Below Risk Factors Present?: Yes Each Factor Represents 1 point: Abnormal pulmonary function (COPD) Other Risk Factors: Yes Each Risk Factor Represents 2 Points: Age 61-74 years Thrombosis Risk Factor Assessment Total Risk Factor Score: 3 Thrombosis Risk Factor Assessment Level: Moderate Risk Assessment and Plan Plan: -Right lower quadrant abdominal pain may be secondary to a passed renal stone. There is an incidental finding of right mass in the biliary tract or gallbladder for which patient will need an outpatient follow-up with her deformity hepatobiliary team. This improved -Alcoholic cirrhosis patient doesn't have any ascites patient will continued on IV fluids -Alcohol abuse: Counseling was provided -Alcohol withdrawal: Patient is having withdrawals at this time patient will be started on Ativan protocol thiamine supplementation IV fluids as mentioned above -Hyponatremia hypervolemic hyponatremia, IV fluids as mentioned above -Hypokalemia potassium will be supplemented -Mildly elevated bilirubin can be secondary to the gallbladder mass or his cirrhosis itself Patient will need pharmacologic GI and DVT prophylaxis
[2018-09-15] MEDS: THIAMINE 100 MG TAB PO SCH ×2 (18:06)
[2018-09-15 19:46] LABS: Appearance,Urine Clear (Clear); Bilirubin,Urine Negative (Negative); Blood,Urine Negative (Negative); Color,Urine Light Yellow; Glucose,Urine (UA) Negative (Negative); Ketones,Urine Negative (Negative); Leukocyte Esterase,Urine Negative (Negative); Nitrite,Urine Negative (Negative); PH, Urine 6.5 (5.0-8.0); Protein,Urine Negative (Negative); Specific Gravity,Urine 1.008 (1.001-1.035); Urobilinogen,Urine <2.0 mg/dL (<2.0)
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
[2018-09-15] MEDS: FAMOTIDINE 20 MG TAB PO SCH (21:39)
[2018-09-15] MEDS: PANTOPRAZOLE 40 MG TABLET PO SCH (21:39)
[2018-09-15 23:17] VITALS: RESP 20
[2018-09-16] MEDS: HEPARIN SODIUM,PORCINE 5,000 UNIT/ML 1 ML VIAL SQ SCH ×3 (00:33→16:57)
[2018-09-16] MEDS: SODIUM CHLORIDE 0.9% 1,000 ML IV SCH ×2 (05:51→16:54)
[2018-09-16] MEDS: PANTOPRAZOLE 40 MG TABLET PO SCH (07:10)
[2018-09-16] MEDS: THIAMINE 100 MG TAB PO SCH ×2 (07:10→16:57)
[2018-09-16] MEDS: FAMOTIDINE 20 MG TAB PO SCH (07:10)
[2018-09-16 08:59] LABS: ALT 16 U/L (21-72); AST 35 U/L (17-59); African American GFR (CKD) >90 (>60 ml/min/1.73 sqM); Albumin 2.6 g/dL (3.5-5.0); Alkaline Phosphatase 130 U/L (38-126); Anion Gap 6 mmol/L; Bilirubin, Delta 0.5 mg/dL (0.0-0.2); Bilirubin,Unconjugated 1.3 mg/dL (0.0-1.1); Blood Urea Nitrogen 8 mg/dL (9-20); Calcium 8.4 mg/dL (8.4-10.2); Carbon Dioxide 22 mmol/L (22-30); Chloride 112 mmol/L (98-107); Glucose 149 mg/dL (74-99); Potassium 3.6 mmol/L (3.5-5.1); Sodium 140 mmol/L (137-145); Total Bilirubin 1.8 mg/dL (0.2-1.3); Total Protein 6.8 g/dL (6.3-8.2)
[2018-09-16 09:04] LABS: HCT 38.3 % (39.0-53.0); HGB 12.8 gm/dL (13.0-17.5); MCH 34.8 pg (25.0-35.0); MCHC 33.4 g/dL (31.0-37.0); MCV 104.1 fL (80.0-100.0); Macrocytosis Slight; Mean Platelet Volume 7.5; Platelet Count 148 k/uL (150-450); RBC 3.68 m/uL (4.30-5.90); RDW 14.2 % (11.5-15.5); WBC 4.8 k/uL (3.8-10.6)
[2018-09-16 14:39] VITALS: BP 160/87; PULSE 87; TEMP 98.8
--- NOTE | 2018-09-16 15:04 | P.DS ---
Providers Date of admission: 09/15/18 05:36 Attending physician: Narayan Trevino Consults: 09/15/18 05:36 Consult Physician Urgent Consulting Provider: Narayan Barth Consult Reason/Comments: symptomatic cholelithiasis Do you want consulting provider notified?: Yes Consult Physician Urgent Consulting Provider: Trae Liriano Consult Reason/Comments: cholelithiasis and elevated lipase Do you want consulting provider notified?: Yes Primary care physician: Narayan Trevino Hospital Course: 62-year-old male came in with the right lower quadrant crampy pain along with the right flank pain. Patient denied any fever chills. Patient denied any dysuria. Patient had a CAT scan yesterday which showed nonobstructive renal calculus was subsequently discharged comes back again with the same pain at that time ultrasound of the abdomen was obtained which showed possible mass in the gallbladder patient does have cirrhosis although his denies drinking alcohol regularly patient is having withdrawals at this time. General surgery evaluated the patient and they're recommending nonemergent the surgery by a hepatobiliary surgeon at a higher level facility for this gallbladder mass. Patient abdominal pain is better it appears like patient may have a stone which she passed. Patient appears to have alcohol withdrawals at this time because of which I will keep him here hydrate him. Patient will be on withdrawals CW protocol. 09/16/2018 Patient appears to have had nephrolithiasis and he passed a stone that pain improved but still recommend asking for fevers pain medications for his chronic abdominal pain. An prescription for 3 days of Av[place]am. Patient withdrawals or better still has better withdrawals because of which I'm not giving him tramadol and does appear to have some gastritis because of which have not continuing his ibuprofen. Patient will be discharged to follow-up with Dr. Trevino discussed with Dr. Tatum Practitioner regarding his issues of doesn't want to follow up with up to b iliary surgeon at [facility]. Although appropriate appointments were made for him to see a hepatobiliary surgeon at [facility], if he changes his mind. Patient has a mass in the gallbladder area and malignancy cannot be ruled out. Patient declined to go to subacute rehabilitation patient uses wheelchair. Patient does have some minimal tremor from alcohol withdrawal but I do not believe will require Ativan at this time patient Ativan requirements are very minimal since yesterday. PHYSICAL EXAMINATION: GENERAL: The patient is alert and oriented x3, not in any acute distress. Well developed, well nourished. HEENT: Pupils are round and equally reacting to light. EOMI. No scleral icterus. No conjunctival pallor. Normocephalic, atraumatic. No pharyngeal erythema. No thyromegaly. CARDIOVASCULAR: S1 and S2 present. No murmurs, rubs, or gallops. PULMONARY: Chest is clear to auscultation, no wheezing or crackles. ABDOMEN: Soft, nontender, nondistended, normoactive bowel sounds. No palpable organomegaly. MUSCULOSKELETAL: No joint swelling or deformity. EXTREMITIES: No cyanosis, clubbing, or pedal edema. NEUROLOGICAL: Gross neurological examination did not reveal any focal deficits. SKIN: No rashes. Assessment and Plan Plan: -Right lower quadrant abdominal pain may be secondary to a passed renal stone. There is an incidental finding of right mass in the biliary tract or gallbladder for which patient will need an outpatient follow-up in the [facility] hepatobiliary team. 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 -Alcohol abuse: Counseling was provided -Alcohol withdrawal: -Hyponatremia, hypovolemic hyponatremia improved with IV fluids -Hypokalemia potassium was supplemented -Mildly elevated bilirubin can be secondary to the gallbladder mass or his cirrhosis itself Patient Condition at Discharge: Stable Plan - Discharge Summary Discharge Rx Participant: No New Discharge Prescriptions: New HYDROcodone/APAP 5-325MG [[place]am 5-325] 1 tab PO Q4HR PRN 3 Days #18 tab PRN Reason: Pain Thiamine [Vitamin B-1] 100 mg PO BID-W/MEALS #60 tab Continue Albuterol Sulfate [Proair Hfa] 2 puff INHALATION RT-QID PRN PRN Reason: Shortness Of Breath Multivit-Min/FA/Lycopen/Lutein [Centrum Silver Tablet] 1 tab PO DAILY Albuterol Nebulized [Ventolin Nebulized] 2.5 mg INHALATION RT-QID PRN PRN Reason: Shortness Of Breath Discontinued Acetaminophen Tab [Tylenol] 325 - 650 mg PO QID PRN PRN Reason: Pain Ibuprofen [Motrin] 800 mg PO Q6HR Discharge Medication List Albuterol Sulfate [Proair Hfa] 2 puff INHALATION RT-QID PRN 09/05/14 [History] Multivit-Min/FA/Lycopen/Lutein [Centrum Silver Tablet] 1 tab PO DAILY 11/15/16 [History] Albuterol Nebulized [Ventolin Nebulized] 2.5 mg INHALATION RT-QID PRN 11/26/17 [History] HYDROcodone/APAP 5-325MG [Av[place]am 5-325] 1 tab PO Q4HR PRN 3 Days #18 tab 09/16/18 [Rx] Thiamine [Vitamin B-1] 100 mg PO BID-W/MEALS #60 tab 09/16/18 [Rx] Follow up Appointment(s)/Referral(s): Narayan Trevino MD [Primary Care Provider] - 09/19/18 11:20 am Patient Instructions/Handouts: Abdominal Pain (ED) Activity/Diet/Wound Care/Special Instructions: Jovany Sue to call you with a appt. time and date for the heptabillary Discharge Disposition: HOME WITH HOME HEALTH SERVICES
--- NOTE | 2018-09-16 15:09 | XR ---
EXAMINATION TYPE: XR chest 1V DATE OF EXAM: 09/16/2018 COMPARISON: 11/26/2017 HISTORY: 62 year-old male shortness of breath TECHNIQUE: Single frontal view of the chest is obtained. FINDINGS: Heart normal size. Aorta and pulmonary vasculature within normal limits. Mild diffuse interstitial pr ominence with hyperinflation. No consolidation or pleural effusion. IMPRESSION: COPD and chronic changes. No definite acute process.
[2018-09-16 16:47] LABS: Protein, Total 6.3 g/dL (6.2-8.2)
--- NOTE | 2018-09-16 17:49 | P.PN ---
Subjective Progress Note Date: 09/16/18 Principal diagnosis: Abdominal pain, symptomatic cholelithiasis, suspected cirrhosis Patient seen lying in bed. He reports he tolerated his diet this morning. No nausea, vomiting or further abdominal pain. Objective - Vital Signs Vital signs: Vital Signs Temp 98.3 F 09/16/18 05:00 Pulse 86 09/16/18 10:58 Resp 20 09/16/18 05:00 BP 136/77 09/16/18 05:00 Pulse Ox 91 L 09/16/18 05:00 Intake & Output 09/15/18 09/16/18 09/16/18 18:59 06:59 18:59 Intake Total 300 Output Total 300 350 Balance -300 300 -350 Weight 88.451 kg Intake: Oral 300 Output: Urine 300 350 Other: Voiding Method Urinal # Voids 2 1 - Exam On physical examination, patient appears comfortable in no apparent distress. HEAD: Normocephalic, atraumatic. EYES: No scleral icterus. No conjunctival injection. MOUTH: No lesions, tongue midline. NECK: Trachea midline, no gross abnormalities. CHEST: Clear to auscultation with no wheezing or rhonchi appreciated. HEART: Regular rate and rhythm. ABDOMEN: Soft, obese. Bowel sounds are positive. No organomegaly. No guarding or rigidity. EXTREMITIES: No pedal edema. SKIN: No rashes, no jaundice. NEUROLOGIC: Alert and oriented x3, tremulous but no asterixis noted. No focal deficits. - Labs CBC & Chem 7: 09/16/18 08:00 09/16/18 08:00 Labs: Abnormal Lab Results - Last 24 Hours (Table) 09/16/18 09/16/18 Range/Units 08:00 08:00 RBC 3.68 L (4.30-5.90) m/uL Hgb 12.8 L (13.0-17.5) gm/dL Hct 38.3 L (39.0-53.0) % MCV 104.1 H (80.0-100.0) fL Plt Count 148 L (150-450) k/uL Chloride 112 H (98-107) mmol/L BUN 8 L (9-20) mg/dL Glucose 149 H (74-99) mg/dL Total Bilirubin 1.8 H (0.2-1.3) mg/dL Unconjugated Bilirubin 1.3 H (0.0-1.1) mg/dL Delta Bilirubin 0.5 H (0.0-0.2) mg/dL ALT 16 L (21-72) U/L Alkaline Phosphatase 130 H (38-126) U/L Albumin 2.6 L (3.5-5.0) g/dL Assessment and Plan (1) Abdominal pain Narrative/Plan: 62-year-old male presenting after recent ER visit with continued right upper quadrant abdominal pain described as lasting hours in duration and crampy and pressure-like in sensation both in the right upper quadrant of his abdomen in the epigastric region. Likely representing symptomatic cholelithiasis. Status: Acute Code(s): R10.9 - UNSPECIFIED ABDOMINAL PAIN SNOMED Code(s): 85416985 (2) Elevated bilirubin Narrative/Plan: Elevation in liver enzymes and predominantly a cholestatic pattern with patient denying alcohol use, however clinically displaying symptoms of alcohol withdrawal. Suspicion is for alcoholic liver disease. Will order serology to rule out other underlying etiology of elevation in liver enzymes. Status: Acute Code(s): R17 - UNSPECIFIED JAUNDICE SNOMED Code(s): 46540717 (3) Symptomatic cholelithiasis Status: Acute Code(s): K80.20 - CALCULUS OF GALLBLADDER W/O CHOLECYSTITIS W/O OBSTRUCTION SNOMED Code(s): 672565518 Plan: Supportive care Alcohol abstinence CIWA protocol Diet as tolerated Complete his liver serology ordered to rule out underlying etiology of elevation in liver enzymes and pending, although suspicion is for alcoholic liver disease with patient's liver enzymes appearing to be elevated on a chronic basis on review of the medical record predominantly in a cholestatic pattern Surgical service has been consult said with recommendation for evaluation at a tertiary referral center for cholecystectomy given liver disease Thank you for allowing us to participate in the care of the patient we will continue to follow
[2018-09-16 18:27] LABS: Iron Saturation 18.55 (15.00-50.00)
[2018-09-16 19:25] LABS: Hepatitis A Antibody IgM Non-Reactive (Non-Reactive); Hepatitis B Core IgM Non-Reactive (Non-Reactive)
[2018-09-17 13:07] LABS: Albumin 2.29 g/dL (3.80-4.90); Gamma Globulin 2.39 g/dL (0.70-1.50)
[2018-09-17 14:58] LABS: Ceruloplasmin 28.5 mg/dL (20.0-60.0)
== END 2018-09-16 17:30 | disposition home health service (06) ==
LOC: EC 01:54 → 4MS4W 05:36
PROVIDERS: ADMIT Family Medicine; ATTEND Family Medicine
DX: R10.31 Right lower quadrant pain (principal); Z87.442 Personal history of urinary calculi; K70.30 Alcoholic cirrhosis of liver without ascites; F10.239 Alcohol dependence with withdrawal, unspecified; E87.1 Hypo-osmolality and hyponatremia; E86.1 Hypovolemia; E87.6 Hypokalemia; E80.7 Disorder of bilirubin metabolism, unspecified; R11.0 Nausea; J44.9 Chronic obstructive pulmonary disease, unspecified; K21.9 Gastro-esophageal reflux disease without esophagitis; I10 Essential (primary) hypertension; G89.29 Other chronic pain; K80.20 Calculus of gallbladder without cholecystitis without obstruction; Z79.899 Other long term (current) drug therapy; Z79.1 Long term (current) use of non-steroidal anti-inflammatories (NSAID); Z87.11 Personal history of peptic ulcer disease; Z16.24 Resistance to multiple antibiotics; Z87.01 Personal history of pneumonia (recurrent); Z91.19 Patient's noncompliance with other medical treatment and regimen; Z87.891 Personal history of nicotine dependence; Z83.3 Family history of diabetes mellitus
CPT/HCPCS: 36415; 71045; 76705; 80053; 80074; 81003; 82103; 82150; 82248; 82390; 82728; 83516; 83540; 83550; 83690; 84165; 85025; 85027; 86038; 94640; 96361; 96374; 96375; 96376; 99285

== ENCOUNTER 2018-09-29 13:24 | Inpatient (IN) | payer MEDICARE, BC ==
[2018-09-29] MEDS ORDERED: ONDANSETRON 4 MG/2 ML VIAL IM STA (13:52)
[2018-09-29] MEDS ORDERED: SODIUM CHLORIDE 0.9% 1,000 ML IV STA (13:52)
[2018-09-29] MEDS ORDERED: PANTOPRAZOLE 40 MG/10 ML VIAL IVP STA (13:52)
--- NOTE | 2018-09-29 13:56 | ED ---
General Adult HPI - General Chief complaint: GI Bleed Stated complaint: GI bleed Time Seen by Provider: 09/29/18 13:38 Source: patient, family, RN notes reviewed Mode of arrival: wheelchair Limitations: no limitations - History of Present Illness Initial comments: Patient is a pleasant 4 he 2-year-old male presenting to the emergency Department with concern for rectal bleeding. Onset of symptoms was today. Patient has had 4 large bloody bowel movements. Patient does have associated nausea and has vomited. Patient believes vomiting may have been somewhat dark- looking. Patient does have recent history of gallbladder problems with questionable diagnosis of mass in the gallbladder. Patient was seen at the hospital here and also seen 3 days ago at [facility]. Patient has not felt well since being discharged from [facility] 2 days ago. Patient has had some nausea and vomiting since that time. Patient feels fatigued. - Related Data Home Medications Medication Instructions Recorded Confirmed Albuterol Sulfate [Proair Hfa] 2 puff INHALATION RT-QID PRN 09/05/14 09/29/18 Multivit-Min/FA/Lycopen/Lutein 1 tab PO DAILY 11/15/16 09/29/18 [Centrum Silver Tablet] Albuterol Nebulized [Ventolin 2.5 mg INHALATION RT-QID PRN 11/26/17 09/29/18 Nebulized] Previous Rx's Medication Instructions Recorded Thiamine [Vitamin B-1] 100 mg PO BID-W/MEALS #60 tab 09/16/18 Allergies Allergy/AdvReac Type Severity Reaction Status Date / Time No Known Allergies Allergy Verified 09/29/18 14:04 Review of Systems ROS Statement: Those systems with pertinent positive or pertinent negative responses have been documented in the HPI. ROS Other: All systems not noted in ROS Statement are negative. Constitutional: Denies: fever Eyes: Denies: eye pain ENT: Denies: ear pain Respiratory: Denies: cough Cardiovascular: Denies: chest pain Endocrine: Reports: fatigue Gastrointestinal: Reports: nausea, vomiting, hematochezia. 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 CONFIRMED BY [facility] MDRO Source:: Ankle Past Surgical History: Orthopedic Surgery Additional Past Surgical History / Comment(s): right leg surgery 2008, right hip ORIF for subtrochanteric fracture has screws/maurilio, rt ankle tendon repair Past Anesthesia/Blood Transfusion Reactions: No Reported Reaction Past Psychological History: No Psychological Hx Reported Smoking Status: Former smoker Past Alcohol Use History: None Reported Past Drug Use History: None Reported - Past Family History Mother Family Medical History: GERD/Reflux Additional Family Medical History / Comment(s): of crohn's disease Father Family Medical History: Diabetes Mellitus General Exam Limitations: no limitations General appearance: alert, in no apparent distress Head exam: Present: atraumatic Eye exam: Present: normal appearance, PERRL ENT exam: Present: normal oropharynx Neck exam: Present: normal inspection Respiratory exam: Present: normal lung sounds bilaterally Cardiovascular Exam: Present: tachycardia Expanded Peripheral pulses: 2+: Radial (R), Radial (L), Dorsalis Pedis (R), Dorsalis Pedis (L) GI/Abdominal exam: Present: soft, normal bowel sounds. Absent: distended, tenderness, guarding, rebound, rigid, pulsatile mass Extremities exam: Present: normal inspection Neurological exam: Present: alert Psychiatric exam: Present: normal affect, normal mood Skin exam: Present: normal color Course Vital Signs 09/29/18 09/29/18 09/29/18 13:26 14:10 14:30 Temperature 98.4 F Pulse Rate 127 H 112 H 115 H Respiratory 18 20 20 Rate Blood Pressure 125/72 128/82 128/82 O2 Sat by Pulse 86 L 94 L 94 L Oximetry EKG Findings - EKG Comments: EKG Findings:: Sinus tachycardia 116. CO 144. QRS 82. QT 34 6. QTc 480. Normal axis. Normal QRS. No acute ST change. Medical Decision Making - Medical Decision Making Patient reevaluated and resting comfortably in bed. Patient is updated on results and plan. Case was discussed in detail with Dr. Wong, who will admit for Dr. Trevino. - Lab Data Result diagrams: 09/29/18 13:49 09/29/18 13:49 Lab Results 09/29/18 09/29/18 09/29/18 Range/Units 13:49 13:49 13:49 WBC 13.0 H (3.8-10.6) k/uL RBC 2.52 L (4.30-5.90) m/uL Hgb 8.8 L D (13.0-17.5) gm/dL Hct 26.0 L (39.0-53.0) % MCV 103.1 H (80.0-100.0) fL MCH 34.8 (25.0-35.0) pg MCHC 33.7 (31.0-37.0) g/dL RDW 15.7 H (11.5-15.5) % Plt Count 240 (150-450) k/uL Neutrophils % 78 % Lymphocytes % 14 % Monocytes % 5 % Eosinophils % 0 % Basophils % 0 % Neutrophils # 10.2 H (1.3-7.7) k/uL Lymphocytes # 1.8 (1.0-4.8) k/uL Monocytes # 0.7 (0-1.0) k/uL Eosinophils # 0.0 (0-0.7) k/uL Basophils # 0.0 (0-0.2) k/uL Poikilocytosis Slight Macrocytosis Slight PT 15.1 H (9.0-12.0) sec INR 1.5 H (<1.2) APTT 25.1 (22.0-30.0) sec Sodium 139 (137-145) mmol/L Potassium 5.1 (3.5-5.1) mmol/L Chloride 111 H (98-107) mmol/L Carbon Dioxide 19 L (22-30) mmol/L Anion Gap 9 mmol/L BUN 41 H (9-20) mg/dL Creatinine 0.91 (0.66-1.25) mg/dL Est GFR (CKD-EPI)AfAm >90 (>60 ml/min/1.73 sqM) Est GFR (CKD-EPI)NonAf 89 (>60 ml/min/1.73 sqM) Glucose 132 H (74-99) mg/dL Calcium 9.0 (8.4-10.2) mg/dL Total Bilirubin 1.5 H (0.2-1.3) mg/dL AST 23 (17-59) U/L ALT 15 L (21-72) U/L Alkaline Phosphatase 99 (38-126) U/L Total Protein 6.2 L (6.3-8.2) g/dL Albumin 2.5 L (3.5-5.0) g/dL Blood Type Blood Type Confirm Blood Type Recheck Antibody Screen Spec Expiration Date 09/29/18 09/29/18 Range/Units 13:49 14:29 WBC (3.8-10.6) k/uL RBC (4.30-5.90) m/uL Hgb (13.0-17.5) gm/dL Hct (39.0-53.0) % MCV (80.0-100.0) fL MCH (25.0-35.0) pg MCHC (31.0-37.0) g/dL RDW (11.5-15.5) % Plt Count (150-450) k/uL Neutrophils % % Lymphocytes % % Monocytes % % Eosinophils % % Basophils % % Neutrophils # (1.3-7.7) k/uL Lymphocytes # (1.0-4.8) k/uL Monocytes # (0-1.0) k/uL Eosinophils # (0-0.7) k/uL Basophils # (0-0.2) k/uL Poikilocytosis Macrocytosis PT (9.0-12.0) sec INR (<1.2) APTT (22.0-30.0) sec Sodium (137-145) mmol/L Potassium (3.5-5.1) mmol/L Chloride (98-107) mmol/L Carbon Dioxide (22-30) mmol/L Anion Gap mmol/L BUN (9-20) mg/dL Creatinine (0.66-1.25) mg/dL Est GFR (CKD-EPI)AfAm (>60 ml/min/1.73 sqM) Est GFR (CKD-EPI)NonAf (>60 ml/min/1.73 sqM) Glucose (74-99) mg/dL Calcium (8.4-10.2) mg/dL Total Bilirubin (0.2-1.3) mg/dL AST (17-59) U/L ALT (21-72) U/L Alkaline Phosphatase (38-126) U/L Total Protein (6.3-8.2) g/dL Albumin (3.5-5.0) g/dL Blood Type O Negative Blood Type Confirm O Negative Blood Type Recheck CABO Indicated Antibody Screen NEGATIVE Spec Expiration Date 10/02/2018 - 2349 Disposition Clinical Impression: GI hemorrhage Disposition: ADMITTED IP TO THIS HOSP Is patient prescribed a controlled substance at d/c from ED?: No Referrals: Narayan Trevino MD [Primary Care Provider] - 1-2 days Decision Time: 15:22
[2018-09-29 14:27] LABS: INR 1.5 (<1.2); Partial Thromboplastin Time 25.1 sec (22.0-30.0); Prothrombin Time 15.1 sec (9.0-12.0)
[2018-09-29 14:28] LABS: ALT 15 U/L (21-72); AST 23 U/L (17-59); African American GFR (CKD) >90 (>60 ml/min/1.73 sqM); Albumin 2.5 g/dL (3.5-5.0); Alkaline Phosphatase 99 U/L (38-126); Anion Gap 9 mmol/L; Blood Urea Nitrogen 41 mg/dL (9-20); Carbon Dioxide 19 mmol/L (22-30); Chloride 111 mmol/L (98-107); Glucose 132 mg/dL (74-99); Potassium 5.1 mmol/L (3.5-5.1); Sodium 139 mmol/L (137-145); Total Bilirubin 1.5 mg/dL (0.2-1.3); Total Protein 6.2 g/dL (6.3-8.2)
[2018-09-29 14:47] LABS: Basophils % (A) 0 %; Eosinophils % (A) 0 %; Lymphocytes # (A) 1.8 k/uL (1.0-4.8); Lymphocytes % (A) 14 %; MCH 34.8 pg (25.0-35.0); MCHC 33.7 g/dL (31.0-37.0); MCV 103.1 fL (80.0-100.0); Macrocytosis Slight; Mean Platelet Volume 7.9; Monocytes # (A) 0.7 k/uL (0-1.0); Monocytes % (A) 5 %; Neutrophils # (A) 10.2 k/uL (1.3-7.7); Neutrophils % (A) 78 %; Platelet Count 240 k/uL (150-450); Poikilocytosis Slight; RBC 2.52 m/uL (4.30-5.90); RDW 15.7 % (11.5-15.5)
[2018-09-29 14:51] LABS: HGB 8.8 gm/dL (13.0-17.5)
[2018-09-29] MEDS ORDERED: NALOXONE 0.4 MG/ML 1 ML VIAL IV PRN (15:22)
[2018-09-29] MEDS ORDERED: SODIUM CHLORIDE 0.9% 1,000 ML IV SCH (15:30)
[2018-09-29] MEDS: PANTOPRAZOLE 40 MG/10 ML VIAL IV SCH ×2 (16:48→21:24)
[2018-09-29] MEDS ORDERED: THIAMINE 100 MG TAB PO SCH (17:00)
[2018-09-29] MEDS ORDERED: THIAMINE 100 MG/ML 2 ML VIAL IM STA ×2 (18:00→18:10)
[2018-09-29] MEDS ORDERED: LORazepam 2 MG/ML INJ IV PRN ×4 (18:00→18:10)
[2018-09-29] MEDS ORDERED: SODIUM CHLORIDE 0.9% 1,000 ML with MVI, ADULT NO.4 WITH VIT K 10 ML, THIAMINE 100 MG, F... IV ONE ×4 (18:03)
[2018-09-29] MEDS ORDERED: IPRATROPIUM-ALBUTEROL 3 ML NEB INHALATION PRN (18:03)
[2018-09-29] MEDS ORDERED: Phosphorus Replacement Protoco 1 EACH MISC MISCELLANE PRN (18:06)
[2018-09-29] MEDS ORDERED: Magnesium Replacement Protocol 1 EACH MISC MISCELLANE PRN (18:06)
[2018-09-29] MEDS: LORazepam 2 MG/ML INJ IV PRN ×2 (18:28→22:50)
--- NOTE | 2018-09-29 18:37 | XR ---
EXAMINATION TYPE: XR chest 1V portable DATE OF EXAM: 09/29/2018 COMPARISON: 09/16/2018 HISTORY: Weakness TECHNIQUE: Single frontal view of the chest is obtained. FINDINGS: Heart and mediastinum are within normal limits. Lungs are clear of infiltrate. There is no heart failure. There are chest leads. Diaphragm is normal. Bony thorax appears intact. IMPRESSION: No active cardiopulmonary disease. No change.
[2018-09-29 18:40] LABS: African American GFR (CKD) >90 (>60 ml/min/1.73 sqM); Alcohol <10 mg/dL; Anion Gap 10 mmol/L; Blood Urea Nitrogen 44 mg/dL (9-20); Calcium 8.2 mg/dL (8.4-10.2); Carbon Dioxide 16 mmol/L (22-30); Chloride 113 mmol/L (98-107); Glucose 123 mg/dL (74-99); Magnesium 1.8 mg/dL (1.6-2.3); Potassium 4.9 mmol/L (3.5-5.1); Sodium 139 mmol/L (137-145)
[2018-09-29 18:51] LABS: HCT 22.3 % (39.0-53.0); Hypochromasia Slight; MCH 35.1 pg (25.0-35.0); MCV 106.4 fL (80.0-100.0); Macrocytosis Moderate; Mean Platelet Volume 7.7; Platelet Count 211 k/uL (150-450); Poikilocytosis Slight; RBC 2.09 m/uL (4.30-5.90); RDW 15.7 % (11.5-15.5); WBC 12.6 k/uL (3.8-10.6)
[2018-09-29 18:52] LABS: HGB 7.3 gm/dL (13.0-17.5)
[2018-09-29 18:57] LABS: Lactic Acid, Venous 4.3 mmol/L (0.7-2.0)
[2018-09-29 19:15] LABS: Glucose,Whole Blood 128 mg/dL (75-99)
[2018-09-29] MEDS: IPRATROPIUM-ALBUTEROL 3 ML NEB INHALATION SCH (19:49)
--- NOTE | 2018-09-29 21:06 | P.CNPUL ---
History of Present Illness Consult date: 09/29/18 Reason for consult: other (GI bleeding) Chief complaint: bloody bowel movements History of present illness: this is a 62-year-old white male who presented to the ER today with 1 day history of for large bloody bowel movements.this was associated with nausea and vomiting, he vomited some dark-looking material. Denied any hematemesis. Denied any melena. Apparently the patient was recently at [facility] for abdominal pain, exact workup is not clear at the time of this dictation, but he was discharged out of [facility] about 2 days ago. Since discharge, the patient has been feeling rundown and fatigued.on admission his initial hemoglobin was 8.8, since then patient had further episodes of bright red blood per rectum and bloody bowel movements, follow-up hemoglobin is 7.3, patient will be receiving blood transfusion, and arrangements were made for the patient to be admitted to the ICU.the patient himself is a very poor historian, apparently when he arrived he was extremely agitated, he is known to have history of alcohol abuse, hence he was given Ativan and he was placed on the C1wa protocol.during my evaluation, the patient was noted to be sedated, calm, cannot give much history, quite lethargic, arousable but easily gets agitated. Apparently his ammonia level was high, hence I recommended nasogastric tube to be placed and to start lactulose. As the patient may have obviously hepatic encephalopathy.lactic acid on admission was 4.3, hence fluid boluses were given. Patient is not requiring any pressors, and he seems to be hemodynamically stable at this point.patient is also known to have history of COPD, mild clubbing noted on physical examination, hence he was placed on DuoNeb updrafts 4 times a day and when necessary. Patient was also placed on Rocephin for his presentation of hepatic encephalopathy and hyperammonemia. 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 Retired from [employer]. He has traveled nationally and internationally for his work, nothing recent. Pet dog in the home. Without a current tobacco smoker or alcohol user Smoking Status: Former smoker Past Alcohol Use History: None Reported Additional Past Alcohol Use History / Comment(s): Patient denies daily drinking, also denies more than 14 drinks in a week. Past Drug Use History: None Reported - Past Family History Mother Family Medical History: GERD/Reflux Additional Family Medical History / Comment(s): of crohn's disease Father Family Medical History: Diabetes Mellitus Medications and Allergies Home Medications Medication Instructions Recorded Confirmed Type Albuterol Sulfate [Proair Hfa] 2 puff INHALATION RT-QID PRN 09/05/14 09/29/18 History Multivit-Min/FA/Lycopen/Lutein 1 tab PO DAILY 11/15/16 09/29/18 History [Centrum Silver Tablet] Albuterol Nebulized [Ventolin 2.5 mg INHALATION RT-QID PRN 11/26/17 09/29/18 History Nebulized] Thiamine [Vitamin B-1] 100 mg PO BID-W/MEALS #60 tab 09/16/18 09/29/18 Rx Allergies Allergy/AdvReac Type Severity Reaction Status Date / Time No Known Allergies Allergy Verified 09/29/18 14:04 Physical Exam Vitals: Vital Signs Temp Pulse Pulse Resp BP BP Pulse Ox 09/29/18 20:03 96 09/29/18 20:02 100 09/29/18 20:00 97.4 F L 105 H 20 150/78 100 09/29/18 19:51 102 H 09/29/18 19:30 130 H 14 139/84 93 L 09/29/18 19:00 97.9 F 133 H 16 139/84 09/29/18 17:45 116 H 16 09/29/18 17:35 99.1 F 116 H 20 139/72 94 L 09/29/18 17:10 97.8 F 09/29/18 16:13 125 H 20 139/69 09/29/18 14:30 115 H 20 128/82 94 L 09/29/18 14:10 112 H 20 128/82 94 L 09/29/18 13:26 98.4 F 127 H 18 125/72 86 L Intake and Output 09/29/18 09/29/18 09/29/18 06:59 14:59 22:59 Intake Total 20 Balance 20 Intake: IV 20 Invasive Line 1 10 Invasive Line 2 10 Other: Voiding Method Incontinent # Bowel Movements 1 Weight 77.111 kg General appearance: physical exam revealed a 62-year-old white male lethargic, arousable, in no form of respiratory distress Head exam: atraumatic, normocephalic. Eye exam: PERRLA, EOMI, no icterus.L ENT exam: extremely dry mucous membranes, throat is clear Neck exam: no neck masses, no JVD, no stridor. Neck supple Respiratory exam: diminished breath sound bilaterally no crackles or rhonchi or wheezes. Cardiovascular Exam: normal S1 and S2, no S3 gallop, no murmur. Peripheral pulses: symmetrical and equal pulses bilaterally. GI/Abdominal exam: soft nontender no megaly no rebound no guarding, positive bowel sounds Extremities exam: mild clubbing no edema no cyanosis Neurological exam: lethargic but arousable, gets agitated quite easily. Psychiatric exam: depressed mood and blunted affect, questionable mental status at this time because he just received some Ativan Skin exam:dry skin otherwise unremarkable Results - Laboratory Findings CBC and BMP: 09/29/18 18:05 09/29/18 18:09 PT/INR, D-dimer PT 15.1 sec (9.0-12.0) H 09/29/18 13:49 INR 1.5 (<1.2) H 09/29/18 13:49 Abnormal lab findings: Abnormal Labs 09/29/18 09/29/18 09/29/18 13:49 13:49 13:49 WBC 13.0 H RBC 2.52 L Hgb 8.8 L D Hct 26.0 L MCV 103.1 H MCH RDW 15.7 H Neutrophils # 10.2 H PT 15.1 H INR 1.5 H Chloride 111 H Carbon Dioxide 19 L BUN 41 H Glucose 132 H POC Glucose (mg/dL) Plasma Lactic Acid Milton Calcium Total Bilirubin 1.5 H ALT 15 L Ammonia Total Protein 6.2 L Albumin 2.5 L Crossmatch 09/29/18 09/29/18 09/29/18 13:49 18:05 18:09 WBC 12.6 H RBC 2.09 L Hgb 7.3 L D Hct 22.3 L MCV 106.4 H MCH 35.1 H RDW 15.7 H Neutrophils # PT INR Chloride Carbon Dioxide BUN Glucose POC Glucose (mg/dL) Plasma Lactic Acid Milton 4.3 H* Calcium Total Bilirubin ALT Ammonia 88 H Total Protein Albumin Crossmatch See Detail 09/29/18 09/29/18 18:09 19:03 WBC RBC Hgb Hct MCV MCH RDW Neutrophils # PT INR Chloride 113 H Carbon Dioxide 16 L BUN 44 H Glucose 123 H POC Glucose (mg/dL) 128 H Plasma Lactic Acid Milton Calcium 8.2 L Total Bilirubin ALT Ammonia Total Protein Albumin Crossmatch - Diagnostic Findings Chest x-ray: image reviewed (chest x-ray showed COPD and no evidence of active pulmonary disease) Assessment and Plan Assessment: impression: Acute GI bleeding in a patient with known history of alcoholism, differential diagnoses includes peptic ulcer disease, esophageal varices, erosive gastritis, and even possibly diverticular disease/diverticulosis. Acute hepatic encephalopathy with significantly elevated ammonia level secondary to underlying alcohol related liver disease. history of underlying COPD, patient is now on bronchodilators in the form of DuoNeb. Presently his COPD is inactive. Benign essential hypertension Degenerative joint disease History of alcohol abuse Recommendation: I fully agree with the present treatment plan including antibiotics, blood transfusion for hemoglobin around 7 with active bleeding, agree with lactulose for his elevated ammonia level, patient was seen by gastroenterology on consultation, may require EGD and colonoscopy. In the meantime the patient will be monitored in the ICU, will transfuse as needed, will give the patient lactulose via nasogastric tube, maintained on CIWA protocol, continue bronchodilators, continue GI and DVT prophylaxis, will follow closely. Time with Patient: Greater than 30
[2018-09-29] MEDS ORDERED: SODIUM CHLORIDE 0.9% 1,000 ML IV ONE (21:11)
[2018-09-29] MEDS: THIAMINE 100 MG TAB PO SCH (21:12)
[2018-09-29] MEDS: MAGNESIUM SULFATE-D5W PMX 1 GM in DEXTROSE/WATER 1 100ML.BAG IVPB SCH (21:26)
[2018-09-29] MEDS: PROPOFOL 1,000 MG in EMPTY BAG 1 BAG IV SCH (22:08)
[2018-09-29 22:17] LABS: ABG Base Excess -6.3 mmol/L; ABG HCO3 18 mmol/L (21-25); ABG Oxygen Saturation 99.8 % (94-97); ABG PCO2 27 mmHg (35-45); ABG PH 7.44 (7.35-7.45); ABG PO2 251 mmHg (83-108); ABG TCO2 19 mmol/L (19-24); Allen Test Performed? Yes
--- NOTE | 2018-09-29 22:24 | XR ---
EXAM: XR Chest, 1 View CLINICAL HISTORY: ITS.REASON XR Reason: Tube placement TECHNIQUE: Frontal view of the chest. COMPARISON: 09/29/18 IMPRESSION: ET tube terminates 5.4 cm from the luiza. NG tube side port terminates at the proximal stomach. Recommend advancing 5 cm.
[2018-09-29] MEDS: LACTULOSE 20 GM/30 ML CUP PO SCH (22:50)
--- NOTE | 2018-09-29 23:43 | HP ---
HISTORY AND PHYSICAL I am covering for Dr. Trevino. DATE OF SERVICE: 09/29/2018 CHIEF COMPLAINT: Gastrointestinal bleed. This 62-year-old gentleman with a past medical history of multiple medical problems including history of GERD, COPD, history of liver disease, history of CRE, Serratia marcescens, being followed by Dr. Narayan Trevino in the outpatient setting patient was recently admitted to [facility] with multiple complex medical issues. The patient was having right lower quadrant abdominal pain also. The patient also had alcoholic cirrhosis, alcohol abuse, also, history as well. The patient had a CT scan of the abdomen and pelvis during that time, which showed a CT scan of the abdomen and pelvis showed evidence of bessie sclerosis in the liver and as well as a 4 mm nonobstructing left lower pole renal calculus and the patient was referred to [facility] apparently. The details are not available at this time. Currently, the patient had multiple episodes of gastrointestinal bleed, 4 times large bowel movements and as well as 1 episode of hematemesis. The patient was confused. The patient was dehydrated. Patient tachycardic. The patient was taken to [facility] and admitted for further evaluation and treatment. Hemoglobin is 12.2 last time. Currently hemoglobin is 8.8, white count is elevated. The patient unable to give coherent history. Most of the history taken from my discussion with staff, review of chart and discussion with the ER physician. PAST MEDICAL HISTORY: History of cirrhosis, chronic liver disease, hypertension, DJD, COPD, GERD, history of alcohol. MEDICATIONS: 1. Thiamine 100 mg p.o. b.i.d. 2. Multivitamins 1 p.o. daily. 3. ProAir 2 puffs q.i.d. p.r.n. 4. Ventolin 2.5 q.i.d. p.r.n. ALLERGIES: None. FAMILY HISTORY, SOCIAL HISTORY AND REVIEW OF SYSTEMS: Could not be taken because of the change in mental status. PHYSICAL EXAMINATION: The patient is stuporous. Pulse is 125, irregular. Blood pressure 139/60, respiration 20, temperature 97.8, pulse ox 94% on 4 L. HEENT: Conjunctivae pale. Oral mucosa dry. Neck is no jugular venous distention. No carotid bruit. No lymph node enlargement. Cardiovascular system: S1, S2 muffled. No S3, no S4. RESPIRATORY: Breath sounds diminished in the bases. Bilateral scattered rhonchi and crackles. ABDOMEN: Soft, obese, nontender. No mass palpable. No ascites. No guarding or rigidity. LEGS: No edema. No swelling. NERVOUS SYSTEM as mentioned earlier could not be examined completely. SKIN: No ulcer, rash or bleeding. JOINTS: No active deforming arthropathy. LABS: WBC 13.3, hemoglobin is 8.8 and INR 1.5. Sodium 130 potassium 5.1, glucose 132, albumin is 2.5, bilirubin is 1.5. ASSESSMENT: 1. Upper gastrointestinal bleed with acute blood loss anemia possibly from variceal bleeding. 2. Change in mental status, metabolic encephalopathy, possibly hepatic encephalopathy. 3. Possible alcohol intoxication and delirium tremens. 4. Increased WBC. 5. Anemia macrocytic secondary from alcohol or chronic liver disease. 6. History of chronic obstructive pulmonary disease. 7. Gastroesophageal reflux disease. 8. History of pneumonia. 9. History of gastroesophageal reflux disease. 10.History of degenerative joint disease. 11.Remote history of nicotine dependence. 12.FULL CODE. RECOMMENDATIONS AND DISCUSSION: In this 62 -year-old gentleman who presented with multiple complex medical issues, we will monitor the patient closely. Continue the current medications, management and symptomatic treatment. We will initiate proton pump inhibitors. Monitor hemoglobin closely, H and H q.6 and transfuse within 7. I would also recommend transfer to ICU for continued closely monitor with Dr. Henderson on consult. I would also recommend Dr. Liriano to evaluate the patient. Otherwise ammonia and serum ETOH and drug screen will be checked. Empiric antibiotics will be given. Cultures were obtained. Guarded prognosis because of multiple complex medical issues. Further recommendations to follow. Lactic acid also may be drawn. See orders for details. Prognosis guarded. Further recommendations to follow. I would also recommend [facility] protocol also. MMODL / IJN: [id number] /
[2018-09-30] MEDS: MAGNESIUM SULFATE-D5W PMX 1 GM in DEXTROSE/WATER 1 100ML.BAG IVPB SCH (00:15)
[2018-09-30 01:12] LABS: Appearance,Urine Clear (Clear); Bilirubin,Urine Negative (Negative); Blood,Urine Negative (Negative); Color,Urine Yellow; Glucose,Urine (UA) Negative (Negative); Ketones,Urine Negative (Negative); Leukocyte Esterase,Urine Negative (Negative); Nitrite,Urine Negative (Negative); PH, Urine 5.5 (5.0-8.0); Protein,Urine Negative (Negative); Specific Gravity,Urine 1.017 (1.001-1.035); Urobilinogen,Urine <2.0 mg/dL (<2.0)
[2018-09-30 01:23] LABS: Amphetamine Screen,Urine Not Detected (NotDetected); Barbiturate Screen,Urine Not Detected (NotDetected); Benzodiazepines Screen,Urine Detected (NotDetected); Cocaine Screen,Urine Not Detected (NotDetected); Methadone Screen, Urine Not Detected (NotDetected); Opiate Screen,Urine Detected (NotDetected); Oxycodone Screen, Urine Not Detected (NotDetected); Phencyclidine Screen,Urine Not Detected (NotDetected); Tricyclic Antidepressant,Urine Not Detected (NotDetected); Urn Cannabinoid Scrn Not Detected (NotDetected)
[2018-09-30] MEDS: PROPOFOL 1,000 MG in EMPTY BAG 1 BAG IV SCH ×4 (01:40→23:10)
[2018-09-30 04:36] LABS: ABG Base Excess -4.7 mmol/L; ABG HCO3 20 mmol/L (21-25); ABG Oxygen Saturation 98.9 % (94-97); ABG PCO2 33 mmHg (35-45); ABG PH 7.39 (7.35-7.45); ABG PO2 133 mmHg (83-108); ABG TCO2 21 mmol/L (19-24); Allen Test Performed? Yes
[2018-09-30 05:46] LABS: Anisocytosis Slight; HCT 25.9 % (39.0-53.0); HGB 8.4 gm/dL (13.0-17.5); Hypochromasia Slight; MCH 33.3 pg (25.0-35.0); MCHC 32.6 g/dL (31.0-37.0); MCV 102.4 fL (80.0-100.0); Macrocytosis Moderate; Mean Platelet Volume 7.2; Platelet Count 159 k/uL (150-450); RBC 2.53 m/uL (4.30-5.90); RDW 16.2 % (11.5-15.5); WBC 10.7 k/uL (3.8-10.6)
[2018-09-30 05:53] LABS: ALT 22 U/L (21-72); AST 22 U/L (17-59); African American GFR (CKD) >90 (>60 ml/min/1.73 sqM); Albumin 1.9 g/dL (3.5-5.0); Alkaline Phosphatase 68 U/L (38-126); Anion Gap 7 mmol/L; Blood Urea Nitrogen 44 mg/dL (9-20); Calcium 7.7 mg/dL (8.4-10.2); Carbon Dioxide 17 mmol/L (22-30); Chloride 118 mmol/L (98-107); Glucose 101 mg/dL (74-99); Magnesium 2.6 mg/dL (1.6-2.3); Potassium 4.5 mmol/L (3.5-5.1); Sodium 142 mmol/L (137-145); Total Bilirubin 1.2 mg/dL (0.2-1.3)
[2018-09-30] MEDS: IPRATROPIUM-ALBUTEROL 3 ML NEB INHALATION SCH ×4 (08:03→19:12)
--- NOTE | 2018-09-30 08:11 | XR ---
EXAMINATION TYPE: XR chest 1V portable DATE OF EXAM: 09/30/2018 Comparison: 09/29/2018 Clinical History: 62-year-old male Tube placement Findings: ET tube is satisfactory. NG tube courses below the diaphragm. Heart normal size. Aorta within normal limits. Hyperinflation. New peripheral right upper lobe opacity. No pleural effusion. Impression: COPD with newly developing infiltrate peripheral right upper lobe.
[2018-09-30] MEDS: LORazepam 2 MG/ML INJ IV PRN (08:27)
[2018-09-30] MEDS: CHLORHEXIDINE GLUCONATE 15 ML CUP MUCOUS MEM SCH ×2 (08:27→23:12)
[2018-09-30] MEDS: PANTOPRAZOLE 40 MG/10 ML VIAL IV SCH ×2 (08:27→23:12)
[2018-09-30] MEDS: LACTULOSE 20 GM/30 ML CUP PO SCH ×3 (08:27→23:12)
[2018-09-30] MEDS: THIAMINE 100 MG TAB PO SCH ×2 (08:28→17:57)
--- NOTE | 2018-09-30 09:59 | P.PN ---
Subjective Progress Note Date: 09/30/18 Principal diagnosis: Acute GI bleeding this is a 62-year-old white male who presented to the ER today with 1 day history of for large bloody bowel movements.this was associated with nausea and vomiting, he vomited some dark-looking material. Denied any hematemesis. Denied any melena. Apparently the patient was recently at [facility] for abdominal pain, exact workup is not clear at the time of this dictation, but he was discharged out of [facility] about 2 days ago. Since discharge, the patient has been feeling rundown and fatigued.on admission his initial hemoglobin was 8.8, since then patient had further episodes of bright red blood per rectum and bloody bowel movements, follow-up hemoglobin is 7.3, patient will be receiving blood transfusion, and arrangements were made for the patient to be admitted to the ICU.the patient himself is a very poor historian, apparently when he arrived he was extremely agitated, he is known to have history of alcohol abuse, hence he was given Ativan and he was placed on the C1wa protocol.during my evaluation, the patient was noted to be sedated, calm, cannot give much history, quite lethargic, arousable but easily gets agitated. Apparently his ammonia level was high, hence I recommended nasogastric tube to be placed and to start lactulose. As the patient may have obviously hepatic encephalopathy.lactic acid on admi ssion was 4.3, hence fluid boluses were given. Patient is not requiring any pressors, and he seems to be hemodynamically stable at this point.patient is also known to have history of COPD, mild clubbing noted on physical examination, hence he was placed on DuoNeb updrafts 4 times a day and when necessary. Patient was also placed on Rocephin for his presentation of hepatic encephalopathy and hyperammonemia. On 09/30/2018 patient seen in follow-up in the intensive care unit. Patient is on mechanical ventilator, sedated, and ventilating's are assist-control mode of ventilation with a rate of 12, tidal and 400, FiO2 of 40% and PEEP of 5, this morning his blood gases showed pO2 of 133, pCO2 33, and pH of 7.39, this was done on FiO2 of 50%, FiO2 had since been dropped down to 40%. IVs include 0.9 normal saline at a rate of 75 ML per hour, Diprivan and is at 50 mics per kilo per minute. Patient received 2 units of packed red blood cells for hemoglobin of 7.3, this morning hemoglobin is 8.4, with blood cell count is 10.7, platelet count is 159, and sodium is 142, potassium is 4.5, chloride is 118, CO2 17, BUN is 44, creatinine 0.87, urinalysis was clear, no signs of infection, drug screen was positive for opiates and benzodiazepines. Patient has been afebrile, was dynamically stable, his chest x-ray has been reviewed, showing COPD and newly developing infiltrate in the right upper lobe. Antibiotic coverage in the form of Rocephin. Blood cultures are pending, sputum culture will be sent. he is receiving lactulose per OG tube, and ammonia level is down to 64 on today's labs . We'll catheter is in, and patient is nonoliguric. Lung sounds are clear. Objective - Vital Signs Vital signs: Vital Signs Temp 98.5 F 09/30/18 08:00 Pulse 77 09/30/18 09:00 Resp 15 09/30/18 09:00 BP 121/61 09/30/18 09:00 Pulse Ox 100 09/30/18 09:00 Intake & Output 09/29/18 09/30/18 09/30/18 18:59 06:59 18:59 Intake Total 20 2746.569 425 Output Total 610 200 Balance 20 2136.569 225 Weight 77.111 kg 75.8 kg Intake: IV 20 1925 425 Invasive Line 1 10 Invasive Line 2 10 Magnesium Sulfate-D5w Pmx 200 1 gm In Dextrose/Water 1 100ml.bag @ 100 mls/hr IVPB Q1H [facility] Rx#: [id number] Sodium Chloride 0.9% 1, 75 000 ml @ 75 mls/hr IV . [id number] ONE with Mvi, Adult No.4 with Vit K 10 ml with Thiamine 100 mg with Folic Acid 1 mg Rx#: [id number] Sodium Chloride 0.9% 1, 1600 225 000 ml @ 999 mls/hr IV . Q1H1M ONE Rx#:[id number] cefTRIAXone 1 gm In 50 200 Sodium Chloride 0.9% 50 ml @ 100 mls/hr IVPB Q24HR [facility] Rx#:[id number] Intake, IV Titration 171.569 Amount Propofol 1,000 mg In 171.569 Empty Bag 1 bag @ Titrate IV .Q0M [facility] Rx#: [id number] Blood Product 620 Rc As-1 Unit 310 [id number] Rc As-1 Unit 310 [id number] Other 30 Output: Urine 610 200 Other: Voiding Method Incontinent Indwelling Catheter Indwelling Catheter # Voids 1 # Bowel Movements 1 1 - Exam GENERAL EXAM: Sedated, 62-year-old white male, intubated comfortable in no apparent distress. HEAD: Normocephalic/atraumatic. EYES: Normal reaction of pupils, equal size. Conjunctiva pink, sclera white. NOSE: Clear with pink turbinates. THROAT: No erythema or exudates. NECK: No masses, no JVD, no thyroid enlargement, no adenopathy. CHEST: No chest wall deformity. Symmetrical expansion. LUNGS: Equal air entry with no crackles, wheeze, rhonchi or dullness. CVS: Regular rate and rhythm, normal S1 and S2, no gallops, no murmurs, no rubs ABDOMEN: Soft, nontender. No hepatosplenomegaly, normal bowel sounds, no guarding or rigidity. EXTREMITIES: No clubbing, no edema, no cyanosis, 2+ pulses and upper and lower extremities. MUSCULOSKELETAL: Muscle strength and tone normal. SPINE: No scoliosis or deformity SKIN: No rashes CENTRAL NERVOUS SYSTEM: sedated No focal deficits, tone is normal in all 4 extremities. PSYCHIATRIC: Unable to assess, patient is sedated, intubated - Labs CBC & Chem 7: 09/30/18 05:14 09/30/18 05:14 Labs: Abnormal Lab Results - Last 24 Hours (Table) 09/29/18 09/29/18 09/29/18 Range/Units 13:49 13:49 13:49 WBC 13.0 H (3.8-10.6) k/uL RBC 2.52 L (4.30-5.90) m/uL Hgb 8.8 L D (13.0-17.5) gm/dL Hct 26.0 L (39.0-53.0) % MCV 103.1 H (80.0-100.0) fL MCH (25.0-35.0) pg RDW 15.7 H (11.5-15.5) % Neutrophils # 10.2 H (1.3-7.7) k/uL PT 15.1 H (9.0-12.0) sec INR 1.5 H (<1.2) ABG pCO2 (35-45) mmHg ABG pO2 (83-108) mmHg ABG HCO3 (21-25) mmol/L ABG O2 Saturation (94-97) % Chloride 111 H (98-107) mmol/L Carbon Dioxide 19 L (22-30) mmol/L BUN 41 H (9-20) mg/dL Glucose 132 H (74-99) mg/dL POC Glucose (mg/dL) (75-99) mg/dL Plasma Lactic Acid Milton (0.7-2.0) mmol/L Calcium (8.4-10.2) mg/dL Magnesium (1.6-2.3) mg/dL Total Bilirubin 1.5 H (0.2-1.3) mg/dL ALT 15 L (21-72) U/L Ammonia (<30) umol/L Total Protein 6.2 L (6.3-8.2) g/dL Albumin 2.5 L (3.5-5.0) g/dL Urine Opiates Screen (NotDetected) U Benzodiazepines Scrn (NotDetected) Crossmatch 09/29/18 09/29/18 09/29/18 Range/Units 13:49 18:05 18:09 WBC 12.6 H (3.8-10.6) k/uL RBC 2.09 L (4.30-5.90) m/uL Hgb 7.3 L D (13.0-17.5) gm/dL Hct 22.3 L (39.0-53.0) % MCV 106.4 H (80.0-100.0) fL MCH 35.1 H (25.0-35.0) pg RDW 15.7 H (11.5-15.5) % Neutrophils # (1.3-7.7) k/uL PT (9.0-12.0) sec INR (<1.2) ABG pCO2 (35-45) mmHg ABG pO2 (83-108) mmHg ABG HCO3 (21-25) mmol/L ABG O2 Saturation (94-97) % Chloride (98-107) mmol/L Carbon Dioxide (22-30) mmol/L BUN (9-20) mg/dL Glucose (74-99) mg/dL POC Glucose (mg/dL) (75-99) mg/dL Plasma Lactic Acid Milton 4.3 H* (0.7-2.0) mmol/L Calcium (8.4-10.2) mg/dL Magnesium (1.6-2.3) mg/dL Total Bilirubin (0.2-1.3) mg/dL ALT (21-72) U/L Ammonia 88 H (<30) umol/L Total Protein (6.3-8.2) g/dL Albumin (3.5-5.0) g/dL Urine Opiates Screen (NotDetected) U Benzodiazepines Scrn (NotDetected) Crossmatch See Detail 09/29/18 09/29/18 09/29/18 Range/Units 18:09 19:03 22:08 WBC (3.8-10.6) k/uL RBC (4.30-5.90) m/uL Hgb (13.0-17.5) gm/dL Hct (39.0-53.0) % MCV (80.0-100.0) fL MCH (25.0-35.0) pg RDW (11.5-15.5) % Neutrophils # (1.3-7.7) k/uL PT (9.0-12.0) sec INR (<1.2) ABG pCO2 27 L (35-45) mmHg ABG pO2 251 H (83-108) mmHg ABG HCO3 18 L (21-25) mmol/L ABG O2 Saturation 99.8 H (94-97) % Chloride 113 H (98-107) mmol/L Carbon Dioxide 16 L (22-30) mmol/L BUN 44 H (9-20) mg/dL Glucose 123 H (74-99) mg/dL POC Glucose (mg/dL) 128 H (75-99) mg/dL Plasma Lactic Acid Milton (0.7-2.0) mmol/L Calcium 8.2 L (8.4-10.2) mg/dL Magnesium (1.6-2.3) mg/dL Total Bilirubin (0.2-1.3) mg/dL ALT (21-72) U/L Ammonia (<30) umol/L Total Protein (6.3-8.2) g/dL Albumin (3.5-5.0) g/dL Urine Opiates Screen (NotDetected) U Benzodiazepines Scrn (NotDetected) Crossmatch 09/29/18 09/29/18 09/30/18 Range/Units 22:15 22:18 04:34 WBC (3.8-10.6) k/uL RBC (4.30-5.90) m/uL Hgb (13.0-17.5) gm/dL Hct (39.0-53.0) % MCV (80.0-100.0) fL MCH (25.0-35.0) pg RDW (11.5-15.5) % Neutrophils # (1.3-7.7) k/uL PT (9.0-12.0) sec INR (<1.2) ABG pCO2 33 L (35-45) mmHg ABG pO2 133 H (83-108) mmHg ABG HCO3 20 L (21-25) mmol/L ABG O2 Saturation 98.9 H (94-97) % Chloride (98-107) mmol/L Carbon Dioxide (22-30) mmol/L BUN (9-20) mg/dL Glucose (74-99) mg/dL POC Glucose (mg/dL) (75-99) mg/dL Plasma Lactic Acid Milton 2.9 H* (0.7-2.0) mmol/L Calcium (8.4-10.2) mg/dL Magnesium (1.6-2.3) mg/dL Total Bilirubin (0.2-1.3) mg/dL ALT (21-72) U/L Ammonia (<30) umol/L Total Protein (6.3-8.2) g/dL Albumin (3.5-5.0) g/dL Urine Opiates Screen Detected H (NotDetected) U Benzodiazepines Scrn Detected H (NotDetected) Crossmatch 09/30/18 09/30/18 09/30/18 Range/Units 05:14 05:14 07:46 WBC 10.7 H (3.8-10.6) k/uL RBC 2.53 L (4.30-5.90) m/uL Hgb 8.4 L (13.0-17.5) gm/dL Hct 25.9 L (39.0-53.0) % MCV 102.4 H (80.0-100.0) fL MCH (25.0-35.0) pg RDW 16.2 H (11.5-15.5) % Neutrophils # (1.3-7.7) k/uL PT (9.0-12.0) sec INR (<1.2) ABG pCO2 (35-45) mmHg ABG pO2 (83-108) mmHg ABG HCO3 (21-25) mmol/L ABG O2 Saturation (94-97) % Chloride 118 H (98-107) mmol/L Carbon Dioxide 17 L (22-30) mmol/L BUN 44 H (9-20) mg/dL Glucose 101 H (74-99) mg/dL POC Glucose (mg/dL) (75-99) mg/dL Plasma Lactic Acid Milton (0.7-2.0) mmol/L Calcium 7.7 L (8.4-10.2) mg/dL Magnesium 2.6 H (1.6-2.3) mg/dL Total Bilirubin (0.2-1.3) mg/dL ALT (21-72) U/L Ammonia 64 H (<30) umol/L Total Protein 5.0 L (6.3-8.2) g/dL Albumin 1.9 L (3.5-5.0) g/dL Urine Opiates Screen (NotDetected) U Benzodiazepines Scrn (NotDetected) Crossmatch Assessment and Plan Plan: Assessment: Acute GI bleeding in a patient with known history of alcoholism, differential diagnoses includes peptic ulcer disease, esophageal varices, erosive gastritis, and even possibly diverticular disease/diverticulosis. Acute hepatic encephalopathy with significantly elevated ammonia level secondary to underlying alcohol related liver disease. history of underlying COPD, patient is now on bronchodilators in the form of DuoNeb. Presently his COPD is inactive. Benign essential hypertension Degenerative joint disease History of alcohol abuse Plan: We will continue the same antibiotics, send a sputum culture, blood cultures are pending, patient is afebrile, hemodynamically stable, he is been transfused with 2 units of blood, patient is awaiting to be evaluated by GI service, we will keep NG to suction, there has been on large maroon bowel movement overnight, continue with the CIWA protocol. Serum ammonia level is improving, will do daily interruption of sedation, assess mentation. Continue PPI therapy, Lactulose, antibiotics. I performed a history & physical examination of the patient and discussed their management with my nurse practitioner, Irena Ortiz. I reviewed the nurse practitioner's note and agree with the documented findings and plan of care. Lung sounds are positive for clear breath sounds. The findings and the impression was discussed with the patient. I attest to the documentation by the nurse practitioner. Time with Patient: Greater than 30
--- NOTE | 2018-09-30 12:01 | P.PN ---
Subjective Patient remains in intensive care unit intubated. Patient has consult with gastroenterology pulmonology and infectious disease for possible sepsis. Patient does have a history of gallbladder mass have been attempting to get him to [facility] to see Dr. Teresa. Objective - Vital Signs Vital signs: Vital Signs Temp 98.5 F 09/30/18 08:00 Pulse 77 09/30/18 11:50 Resp 15 09/30/18 09:00 BP 121/61 09/30/18 09:00 Pulse Ox 100 09/30/18 09:00 Intake & Output 09/29/18 09/30/18 09/30/18 18:59 06:59 18:59 Intake Total 20 2746.569 425 Output Total 610 200 Balance 20 2136.569 225 Weight 77.111 kg 75.8 kg Intake: IV 20 1925 425 Invasive Line 1 10 Invasive Line 2 10 Magnesium Sulfate-D5w Pmx 200 1 gm In Dextrose/Water 1 100ml.bag @ 100 mls/hr IVPB Q1H [facility] Rx#: [id number] Sodium Chloride 0.9% 1, 75 000 ml @ 75 mls/hr IV . [id number] ONE with Mvi, Adult No.4 with Vit K 10 ml with Thiamine 100 mg with Folic Acid 1 mg Rx#: [id number] Sodium Chloride 0.9% 1, 1600 225 000 ml @ 999 mls/hr IV . Q1H1M ONE Rx#:[id number] cefTRIAXone 1 gm In 50 200 Sodium Chloride 0.9% 50 ml @ 100 mls/hr IVPB Q24HR [facility] Rx#:[id number] Intake, IV Titration 171.569 Amount Propofol 1,000 mg In 171.569 Empty Bag 1 bag @ Titrate IV .Q0M [facility] Rx#: [id number] Blood Product 620 Rc As-1 Unit 310 [id number] Rc As-1 Unit 310 [id number] Other 30 Output: Urine 610 200 Other: Voiding Method Incontinent Indwelling Catheter Indwelling Catheter # Voids 1 # Bowel Movements 1 1 - Constitutional Constitutional Comment(s): Patient orally intubated and sedated General appearance: Present: average body habitus - EENT Ears: bilateral: normal - Respiratory Respiratory: bilateral: CTA - Cardiovascular Rhythm: regular - Gastrointestinal General gastrointestinal: Present: soft - Integumentary Integumentary: Present: normal - Musculoskeletal Musculoskeletal Comment(s): Patient sedated and orally intubated - Labs CBC & Chem 7: 09/30/18 05:14 09/30/18 05:14 Labs: Abnormal Lab Results - Last 24 Hours (Table) 09/29/18 09/29/18 09/29/18 Range/Units 13:49 13:49 13:49 WBC 13.0 H (3.8-10.6) k/uL RBC 2.52 L (4.30-5.90) m/uL Hgb 8.8 L D (13.0-17.5) gm/dL Hct 26.0 L (39.0-53.0) % MCV 103.1 H (80.0-100.0) fL MCH (25.0-35.0) pg RDW 15.7 H (11.5-15.5) % Neutrophils # 10.2 H (1.3-7.7) k/uL PT 15.1 H (9.0-12.0) sec INR 1.5 H (<1.2) ABG pCO2 (35-45) mmHg ABG pO2 (83-108) mmHg ABG HCO3 (21-25) mmol/L ABG O2 Saturation (94-97) % Chloride 111 H (98-107) mmol/L Carbon Dioxide 19 L (22-30) mmol/L BUN 41 H (9-20) mg/dL Glucose 132 H (74-99) mg/dL POC Glucose (mg/dL) (75-99) mg/dL Plasma Lactic Acid Milton (0.7-2.0) mmol/L Calcium (8.4-10.2) mg/dL Magnesium (1.6-2.3) mg/dL Total Bilirubin 1.5 H (0.2-1.3) mg/dL ALT 15 L (21-72) U/L Ammonia (<30) umol/L Total Protein 6.2 L (6.3-8.2) g/dL Albumin 2.5 L (3.5-5.0) g/dL Urine Opiates Screen (NotDetected) U Benzodiazepines Scrn (NotDetected) Crossmatch 09/29/18 09/29/18 09/29/18 Range/Units 13:49 18:05 18:09 WBC 12.6 H (3.8-10.6) k/uL RBC 2.09 L (4.30-5.90) m/uL Hgb 7.3 L D (13.0-17.5) gm/dL Hct 22.3 L (39.0-53.0) % MCV 106.4 H (80.0-100.0) fL MCH 35.1 H (25.0-35.0) pg RDW 15.7 H (11.5-15.5) % Neutrophils # (1.3-7.7) k/uL PT (9.0-12.0) sec INR (<1.2) ABG pCO2 (35-45) mmHg ABG pO2 (83-108) mmHg ABG HCO3 (21-25) mmol/L ABG O2 Saturation (94-97) % Chloride (98-107) mmol/L Carbon Dioxide (22-30) mmol/L BUN (9-20) mg/dL Glucose (74-99) mg/dL POC Glucose (mg/dL) (75-99) mg/dL Plasma Lactic Acid Milton 4.3 H* (0.7-2.0) mmol/L Calcium (8.4-10.2) mg/dL Magnesium (1.6-2.3) mg/dL Total Bilirubin (0.2-1.3) mg/dL ALT (21-72) U/L Ammonia 88 H (<30) umol/L Total Protein (6.3-8.2) g/dL Albumin (3.5-5.0) g/dL Urine Opiates Screen (NotDetected) U Benzodiazepines Scrn (NotDetected) Crossmatch See Detail 09/29/18 09/29/18 09/29/18 Range/Units 18:09 19:03 22:08 WBC (3.8-10.6) k/uL RBC (4.30-5.90) m/uL Hgb (13.0-17.5) gm/dL Hct (39.0-53.0) % MCV (80.0-100.0) fL MCH (25.0-35.0) pg RDW (11.5-15.5) % Neutrophils # (1.3-7.7) k/uL PT (9.0-12.0) sec INR (<1.2) ABG pCO2 27 L (35-45) mmHg ABG pO2 251 H (83-108) mmHg ABG HCO3 18 L (21-25) mmol/L ABG O2 Saturation 99.8 H (94-97) % Chloride 113 H (98-107) mmol/L Carbon Dioxide 16 L (22-30) mmol/L BUN 44 H (9-20) mg/dL Glucose 123 H (74-99) mg/dL POC Glucose (mg/dL) 128 H (75-99) mg/dL Plasma Lactic Acid Milton (0.7-2.0) mmol/L Calcium 8.2 L (8.4-10.2) mg/dL Magnesium (1.6-2.3) mg/dL Total Bilirubin (0.2-1.3) mg/dL ALT (21-72) U/L Ammonia (<30) umol/L Total Protein (6.3-8.2) g/dL Albumin (3.5-5.0) g/dL Urine Opiates Screen (NotDetected) U Benzodiazepines Scrn (NotDetected) Crossmatch 09/29/18 09/29/18 09/30/18 Range/Units 22:15 22:18 04:34 WBC (3.8-10.6) k/uL RBC (4.30-5.90) m/uL Hgb (13.0-17.5) gm/dL Hct (39.0-53.0) % MCV (80.0-100.0) fL MCH (25.0-35.0) pg RDW (11.5-15.5) % Neutrophils # (1.3-7.7) k/uL PT (9.0-12.0) sec INR (<1.2) ABG pCO2 33 L (35-45) mmHg ABG pO2 133 H (83-108) mmHg ABG HCO3 20 L (21-25) mmol/L ABG O2 Saturation 98.9 H (94-97) % Chloride (98-107) mmol/L Carbon Dioxide (22-30) mmol/L BUN (9-20) mg/dL Glucose (74-99) mg/dL POC Glucose (mg/dL) (75-99) mg/dL Plasma Lactic Acid Milton 2.9 H* (0.7-2.0) mmol/L Calcium (8.4-10.2) mg/dL Magnesium (1.6-2.3) mg/dL Total Bilirubin (0.2-1.3) mg/dL ALT (21-72) U/L Ammonia (<30) umol/L Total Protein (6.3-8.2) g/dL Albumin (3.5-5.0) g/dL Urine Opiates Screen Detected H (NotDetected) U Benzodiazepines Scrn Detected H (NotDetected) Crossmatch 09/30/18 09/30/18 09/30/18 Range/Units 05:14 05:14 07:46 WBC 10.7 H (3.8-10.6) k/uL RBC 2.53 L (4.30-5.90) m/uL Hgb 8.4 L (13.0-17.5) gm/dL Hct 25.9 L (39.0-53.0) % MCV 102.4 H (80.0-100.0) fL MCH (25.0-35.0) pg RDW 16.2 H (11.5-15.5) % Neutrophils # (1.3-7.7) k/uL PT (9.0-12.0) sec INR (<1.2) ABG pCO2 (35-45) mmHg ABG pO2 (83-108) mmHg ABG HCO3 (21-25) mmol/L ABG O2 Saturation (94-97) % Chloride 118 H (98-107) mmol/L Carbon Dioxide 17 L (22-30) mmol/L BUN 44 H (9-20) mg/dL Glucose 101 H (74-99) mg/dL POC Glucose (mg/dL) (75-99) mg/dL Plasma Lactic Acid Milton (0.7-2.0) mmol/L Calcium 7.7 L (8.4-10.2) mg/dL Magnesium 2.6 H (1.6-2.3) mg/dL Total Bilirubin (0.2-1.3) mg/dL ALT (21-72) U/L Ammonia 64 H (<30) umol/L Total Protein 5.0 L (6.3-8.2) g/dL Albumin 1.9 L (3.5-5.0) g/dL Urine Opiates Screen (NotDetected) U Benzodiazepines Scrn (NotDetected) Crossmatch - Imaging and Cardiology Chest x-ray: report reviewed Assessment and Plan Plan: Assessment Upper gastrointestinal bleed with acute blood loss anemia probable variceal bleeding Metabolic encephalopathy secondary to hepatic encephalopathy elevated pneumonia Possible alcohol intoxication with delirium tremor Gallbladder mass Anemia macrocytic secondary to chronic disease of chronic liver disease history of COPD History of pneumonia GERD Plan Continue consultation with gastroenterology regarding GI bleed Continue consultation with pulmonology Infectious disease for possible sepsis In some point after stabilization needs to be transferred to [facility] to see Dr. Teresa for gallbladder mass
--- NOTE | 2018-09-30 12:07 | P.CONS ---
History of Present Illness - Reason for Consult Consult date: 09/30/18 GI bleed Requesting physician: Narayan Trevino - Chief Complaint Blood per rectum - History of Present Illness 62-year-old male with a medical history significant for GERD, COPD, alcoholic liver disease, and EtOH abuse who presented to the hospital with complaints of blood per rectum. Of note history has been taken from discussion with the medical team and on review of the record as patient is currently intubated and sedated. The patient reports four large bowel movements which were productive of gross red blood. There is also reports of 1 episode of hematemesis. The patient had a recent admission at [facility], and was previously at our facility where he complained of abdominal pain. At that time hemoglobin had been 12.2. On presentation to have a hemoglobin of 8.8 which subsequently fell to 7.3 and increased to 8.4 after 2 units of packed red blood cells. WBC 10.7, platelet count 159,000, total bilirubin 1.2, alkaline phosphatase 68, AST 22, an d tail T 22 with an INR of 1.5. According to the patient's son there is a questionable previous history of peptic ulcer disease when the patient presented with signs and symptoms of GI bleeding. No endoscopic records in our system. 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 Retired from [employer]. He has traveled nationally and internationally for his work, nothing recent. Pet dog in the home. Without a current tobacco smoker or alcohol user Smoking Status: Former smoker Past Alcohol Use History: None Reported Additional Past Alcohol Use History / Comment(s): Patient denies daily drinking, also denies more than 14 drinks in a week. Past Drug Use History: None Reported - Past Family History Mother Family Medical History: GERD/Reflux Additional Family Medical History / Comment(s): of crohn's disease Father Family Medical History: Diabetes Mellitus Medications and Allergies Home Medications Medication Instructions Recorded Confirmed Type Albuterol Sulfate [Proair Hfa] 2 puff INHALATION RT-QID PRN 09/05/14 09/29/18 History Multivit-Min/FA/Lycopen/Lutein 1 tab PO DAILY 11/15/16 09/29/18 History [Centrum Silver Tablet] Albuterol Nebulized [Ventolin 2.5 mg INHALATION RT-QID PRN 11/26/17 09/29/18 History Nebulized] Thiamine [Vitamin B-1] 100 mg PO BID-W/MEALS #60 tab 09/16/18 09/29/18 Rx Allergies Allergy/AdvReac Type Severity Reaction Status Date / Time No Known Allergies Allergy Verified 09/29/18 14:04 Physical Exam Vitals: Vital Signs Temp Pulse Pulse Resp BP BP Pulse Ox 09/30/18 09:00 77 15 121/61 100 09/30/18 08:55 75 09/30/18 08:43 76 09/30/18 08:30 78 14 112/66 100 09/30/18 08:00 98.5 F 77 16 109/44 100 09/30/18 07:30 73 14 120/83 100 09/30/18 07:00 79 18 103/64 100 09/30/18 06:30 72 12 116/52 100 09/30/18 06:00 72 14 116/68 100 09/30/18 05:30 74 12 133/75 100 09/30/18 05:00 77 18 116/69 99 09/30/18 04:30 73 16 105/60 100 09/30/18 04:00 96.8 F L 72 12 109/81 100 09/30/18 03:44 96.7 F L 74 20 109/81 100 09/30/18 03:30 72 18 117/63 100 09/30/18 03:00 73 12 97/61 100 09/30/18 02:30 75 16 102/55 100 09/30/18 02:23 96.3 F L 75 12 97/61 100 09/30/18 02:00 80 18 100/55 100 09/30/18 01:53 96.5 F L 80 16 102/55 100 09/30/18 01:43 96.2 F L 81 09/30/18 01:41 96.2 F L 81 16 100/55 100 09/30/18 01:30 84 12 119/69 100 09/30/18 01:00 88 18 122/58 100 09/30/18 00:30 89 14 107/71 100 09/30/18 00:14 98.4 F 84 16 122/58 100 09/30/18 00:00 97.1 F L 93 18 106/67 100 09/29/18 23:44 97.6 F 90 16 106/73 09/29/18 23:34 97.5 F L 86 16 103/63 100 09/29/18 23:30 86 18 114/60 100 09/29/18 23:00 96 16 138/79 100 09/29/18 22:30 112 H 16 151/89 100 09/29/18 22:00 98 12 112/65 100 09/29/18 21:30 111 H 22 143/71 92 L 09/29/18 21:00 114 H 20 136/67 92 L 09/29/18 20:30 89 20 142/77 92 L 09/29/18 20:03 96 09/29/18 20:02 100 09/29/18 20:00 97.4 F L 105 H 20 150/78 100 09/29/18 19:51 102 H 09/29/18 19:30 130 H 14 139/84 93 L 09/29/18 19:00 97.9 F 133 H 16 139/84 09/29/18 17:45 116 H 16 09/29/18 17:35 99.1 F 116 H 20 139/72 94 L 09/29/18 17:10 97.8 F 09/29/18 16:13 125 H 20 139/69 09/29/18 14:30 115 H 20 128/82 94 L 09/29/18 14:10 112 H 20 128/82 94 L 09/29/18 13:26 98.4 F 127 H 18 125/72 86 L Intake and Output 06/23/19 06/24/19 06/24/19 22:59 06:59 14:59 Intake Total 8239.891 7161.870 425 Output Total 265 345 200 Balance 352.414 5921.870 225 Intake: IV 1220 725 425 Invasive Line 1 10 Invasive Line 2 10 Magnesium Sulfate-D5w Pmx 200 1 gm In Dextrose/Water 1 100ml.bag @ 100 mls/hr IVPB Q1H [facility] Rx#: [id number] Sodium Chloride 0.9% 1, 75 000 ml @ 75 mls/hr IV . [id number] ONE with Mvi, Adult No.4 with Vit K 10 ml with Thiamine 100 mg with Folic Acid 1 mg Rx#: [id number] Sodium Chloride 0.9% 1, 1075 525 225 000 ml @ 999 mls/hr IV . Q1H1M ONE Rx#:[id number] [id number] 1 gm In 50 200 Sodium Chloride 0.9% 50 ml @ 100 mls/hr IVPB Q24HR [facility] Rx#:[id number] Intake, IV Titration 2.699 168.870 Amount Propofol 1,000 mg In 2.699 168.870 Empty Bag 1 bag @ Titrate IV .Q0M [facility] Rx#: [id number] Blood Product 620 Rc As-1 Unit 310 [id number] Rc As-1 Unit 310 [id number] Other 30 Output: Urine 265 345 200 Other: Voiding Method Incontinent Indwelling Catheter Indwelling Catheter # Voids 1 # Bowel Movements 1 1 Weight 75.8 kg On physical examination, patient appears comfortable in no apparent distress. HEAD: Normocephalic, atraumatic. EYES: No scleral icterus. No conjunctival injection. MOUTH: No lesions, tongue midline, ET tube in place. NECK: Trachea midline, no gross abnormalities. CHEST: Coarse respiratory noises in all lung [place] on mechanical ventilation. HEART: S1-S2 appreciated. ABDOMEN: Soft, obese and distended. Bowel sounds are positive. No organomegaly. No guarding or rigidity. EXTREMITIES: No pedal edema. SKIN: No jaundice. NEUROLOGIC: Intubated and sedated. Results CBC & Chem 7: 09/30/18 05:14 09/30/18 05:14 Labs: Abnormal Lab Results - Last 24 Hours (Table) 09/29/18 09/29/18 09/29/18 Range/Units 13:49 13:49 13:49 WBC 13.0 H (3.8-10.6) k/uL RBC 2.52 L (4.30-5.90) m/uL Hgb 8.8 L D (13.0-17.5) gm/dL Hct 26.0 L (39.0-53.0) % MCV 103.1 H (80.0-100.0) fL MCH (25.0-35.0) pg RDW 15.7 H (11.5-15.5) % Neutrophils # 10.2 H (1.3-7.7) k/uL PT 15.1 H (9.0-12.0) sec INR 1.5 H (<1.2) ABG pCO2 (35-45) mmHg ABG pO2 (83-108) mmHg ABG HCO3 (21-25) mmol/L ABG O2 Saturation (94-97) % Chloride 111 H (98-107) mmol/L Carbon Dioxide 19 L (22-30) mmol/L BUN 41 H (9-20) mg/dL Glucose 132 H (74-99) mg/dL POC Glucose (mg/dL) (75-99) mg/dL Plasma Lactic Acid Milton (0.7-2.0) mmol/L Calcium (8.4-10.2) mg/dL Magnesium (1.6-2.3) mg/dL Total Bilirubin 1.5 H (0.2-1.3) mg/dL ALT 15 L (21-72) U/L Ammonia (<30) umol/L Total Protein 6.2 L (6.3-8.2) g/dL Albumin 2.5 L (3.5-5.0) g/dL Urine Opiates Screen (NotDetected) U Benzodiazepines Scrn (NotDetected) Crossmatch 09/29/18 09/29/18 09/29/18 Range/Units 13:49 18:05 18:09 WBC 12.6 H (3.8-10.6) k/uL RBC 2.09 L (4.30-5.90) m/uL Hgb 7.3 L D (13.0-17.5) gm/dL Hct 22.3 L (39.0-53.0) % MCV 106.4 H (80.0-100.0) fL MCH 35.1 H (25.0-35.0) pg RDW 15.7 H (11.5-15.5) % Neutrophils # (1.3-7.7) k/uL PT (9.0-12.0) sec INR (<1.2) ABG pCO2 (35-45) mmHg ABG pO2 (83-108) mmHg ABG HCO3 (21-25) mmol/L ABG O2 Saturation (94-97) % Chloride (98-107) mmol/L Carbon Dioxide (22-30) mmol/L BUN (9-20) mg/dL Glucose (74-99) mg/dL POC Glucose (mg/dL) (75-99) mg/dL Plasma Lactic Acid Milton 4.3 H* (0.7-2.0) mmol/L Calcium (8.4-10.2) mg/dL Magnesium (1.6-2.3) mg/dL Total Bilirubin (0.2-1.3) mg/dL ALT (21-72) U/L Ammonia 88 H (<30) umol/L Total Protein (6.3-8.2) g/dL Albumin (3.5-5.0) g/dL Urine Opiates Screen (NotDetected) U Benzodiazepines Scrn (NotDetected) Crossmatch See Detail 09/29/18 09/29/18 09/29/18 Range/Units 18:09 19:03 22:08 WBC (3.8-10.6) k/uL RBC (4.30-5.90) m/uL Hgb (13.0-17.5) gm/dL Hct (39.0-53.0) % MCV (80.0-100.0) fL MCH (25.0-35.0) pg RDW (11.5-15.5) % Neutrophils # (1.3-7.7) k/uL PT (9.0-12.0) sec INR (<1.2) ABG pCO2 27 L (35-45) mmHg ABG pO2 251 H (83-108) mmHg ABG HCO3 18 L (21-25) mmol/L ABG O2 Saturation 99.8 H (94-97) % Chloride 113 H (98-107) mmol/L Carbon Dioxide 16 L (22-30) mmol/L BUN 44 H (9-20) mg/dL Glucose 123 H (74-99) mg/dL POC Glucose (mg/dL) 128 H (75-99) mg/dL Plasma Lactic Acid Milton (0.7-2.0) mmol/L Calcium 8.2 L (8.4-10.2) mg/dL Magnesium (1.6-2.3) mg/dL Total Bilirubin (0.2-1.3) mg/dL ALT (21-72) U/L Ammonia (<30) umol/L Total Protein (6.3-8.2) g/dL Albumin (3.5-5.0) g/dL Urine Opiates Screen (NotDetected) U Benzodiazepines Scrn (NotDetected) Crossmatch 09/29/18 09/29/18 09/30/18 Range/Units 22:15 22:18 04:34 WBC (3.8-10.6) k/uL RBC (4.30-5.90) m/uL Hgb (13.0-17.5) gm/dL Hct (39.0-53.0) % MCV (80.0-100.0) fL MCH (25.0-35.0) pg RDW (11.5-15.5) % Neutrophils # (1.3-7.7) k/uL PT (9.0-12.0) sec INR (<1.2) ABG pCO2 33 L (35-45) mmHg ABG pO2 133 H (83-108) mmHg ABG HCO3 20 L (21-25) mmol/L ABG O2 Saturation 98.9 H (94-97) % Chloride (98-107) mmol/L Carbon Dioxide (22-30) mmol/L BUN (9-20) mg/dL Glucose (74-99) mg/dL POC Glucose (mg/dL) (75-99) mg/dL Plasma Lactic Acid Milton 2.9 H* (0.7-2.0) mmol/L Calcium (8.4-10.2) mg/dL Magnesium (1.6-2.3) mg/dL Total Bilirubin (0.2-1.3) mg/dL ALT (21-72) U/L Ammonia (<30) umol/L Total Protein (6.3-8.2) g/dL Albumin (3.5-5.0) g/dL Urine Opiates Screen Detected H (NotDetected) U Benzodiazepines Scrn Detected H (NotDetected) Crossmatch 09/30/18 09/30/18 09/30/18 Range/Units 05:14 05:14 07:46 WBC 10.7 H (3.8-10.6) k/uL RBC 2.53 L (4.30-5.90) m/uL Hgb 8.4 L (13.0-17.5) gm/dL Hct 25.9 L (39.0-53.0) % MCV 102.4 H (80.0-100.0) fL MCH (25.0-35.0) pg RDW 16.2 H (11.5-15.5) % Neutrophils # (1.3-7.7) k/uL PT (9.0-12.0) sec INR (<1.2) ABG pCO2 (35-45) mmHg ABG pO2 (83-108) mmHg ABG HCO3 (21-25) mmol/L ABG O2 Saturation (94-97) % Chloride 118 H (98-107) mmol/L Carbon Dioxide 17 L (22-30) mmol/L BUN 44 H (9-20) mg/dL Glucose 101 H (74-99) mg/dL POC Glucose (mg/dL) (75-99) mg/dL Plasma Lactic Acid Milton (0.7-2.0) mmol/L Calcium 7.7 L (8.4-10.2) mg/dL Magnesium 2.6 H (1.6-2.3) mg/dL Total Bilirubin (0.2-1.3) mg/dL ALT (21-72) U/L Ammonia 64 H (<30) umol/L Total Protein 5.0 L (6.3-8.2) g/dL Albumin 1.9 L (3.5-5.0) g/dL Urine Opiates Screen (NotDetected) U Benzodiazepines Scrn (NotDetected) Crossmatch Assessment and Plan (1) GI hemorrhage Narrative/Plan: 62-year-old patient with a medical history significant for alcohol abuse and alcoholic liver disease and presented to the hospital with complaints of bright red blood per rectum. One episode of hematemesis. Patient was found to have an acute fall in his hemoglobin which was 12.2 on prior admission down to 8.8 on current admission. Hemoglobin subsequently fell to 7.3 after which she was transfused 2 units and repeat hemoglobin was found to be 8.4. Unclear etiology with differential including peptic ulcer disease, variceal hemorrhage, lower GI bleed due to diverticulosis, AVM or other etiology. Current Visit: Yes Status: Acute Code(s): K92.2 - GASTROINTESTINAL HEMORRHAGE, UNSPECIFIED SNOMED Code(s): 81449112 (2) Anemia associated with acute blood loss Current Visit: Yes Status: Acute Code(s): D62 - ACUTE POSTHEMORRHAGIC ANEMIA SNOMED Code(s): 176689238 (3) Alcoholic liver disease Current Visit: Yes Status: Acute Code(s): K70.9 - ALCOHOLIC LIVER DISEASE, UNSPECIFIED SNOMED Code(s): 18960160 Plan: Supportive care Nothing by mouth Mechanical ventilation per ICU Continue IV Protonix Plan for emergent EGD Continue ceftriaxone daily We will initiate octreotide therapy if appropriate Monitor for signs of alcohol withdrawal [facility] protocol Vitamin and mineral supplementation Thank you for allowing us to participate in care of this patient we will continue to follow
[2018-09-30] MEDS ORDERED: IV FLUID CONTINUATION 950 ML IV ONE (12:18)
[2018-09-30] MEDS ORDERED: EPINEPHrine 10 ML SYRINGE (0.1 MG/ML) MISCELLANE ONE (12:43)
--- NOTE | 2018-09-30 13:00 | P.PCN ---
Date of Procedure: 09/30/18 Description of Procedure: BRIEF HISTORY: 62-year-old male with a medical history significant for GERD, COPD, alcoholic liver disease, and EtOH abuse who presented to the hospital with complaints of blood per rectum. Of note history has been taken from discussion with the medical team and on review of the record as patient is currently intubated and sedated. The patient reports four large bowel movements which were productive of gross red blood. There is also reports of 1 episode of hematemesis. The patient had a recent admission at [facility], and was previously at our facility where he complained of abdominal pain. At that time hemoglobin had been 12.2. On presentation to have a hemoglobin of 8.8 which subsequently fell to 7.3 and increased to 8.4 after 2 units of packed red blood cells. WBC 10.7, platelet count 159,000, total bilirubin 1.2, alkaline phosphatase 68, AST 22, and ALT 22 with an INR of 1.5. According to the patient's son there is a questionable previous history of peptic ulcer disease when the patient presented with signs and symptoms of GI bleeding. No endoscopic records in our system. PROCEDURE PERFORMED: Esophagogastroduodenoscopy with epinephrine injection. PREOPERATIVE DIAGNOSIS: Hematochezia, anemia of acute blood loss. ESTIMATED BLOOD LOSS: Minimal. IV sedation per anesthesia. PROCEDURE: After informed consent was obtained, the patient was brought into the endoscopy unit. IV sedation was administered by Anesthesia under continuous monitoring. Initially the Olympus GIF-190 video endoscope was inserted into the mouth. Esophagus intubated without any difficulty. It was gradually advanced into the stomach and duodenum and carefully examined. There was a large ulcer in the duodenal bulb and the into the duodenal sweep measuring at least 2 cm in size, the ulcer was not bleeding and did not have any high risk stigmata however there was some mild oozing of blood along the edges after manipulation and this was injected circumferentially with 8 mL of epinephrine with hemostasis achieved. The sweep was performed and given the presence of the large ulcer the scope was not passed into the second portion of the duodenum. The scope at this time was withdrawn to the stomach, adequately insufflated with air, and upon careful examination, mucosa of the antrum, body, cardia and the fundus appeared normal. The scope was then withdrawn into the esophagus. Hiatal hernia was noted. The GE junction was located at 39 cm from the incisors. The esophagus appeared normal. There were no erosions or ulcerations seen and the patient tolerated the procedure well. IMPRESSION: 1. Large nonbleeding ulcer in the duodenal bulb and duodenal sweep injected with 8 mL of epinephrine. 2. Small hiatal hernia. RECOMMENDATIONS: The findings of this examination were discussed with the ICU team. Patient should remain nothing by mouth. Continue IV Protonix therapy. No evidence of varices so octreotide is not indicated at this time. Patient must avoid NSAIDs. If further GI bleeding occurs would recommend surgical consultation for definitive treatment.
[2018-09-30 13:04] LABS: Anisocytosis Slight; HCT 25.2 % (39.0-53.0); HGB 8.2 gm/dL (13.0-17.5); Hypochromasia Slight; MCH 33.3 pg (25.0-35.0); MCHC 32.7 g/dL (31.0-37.0); MCV 101.9 fL (80.0-100.0); Macrocytosis Moderate; Platelet Count 134 k/uL (150-450); Poikilocytosis Slight; RBC 2.48 m/uL (4.30-5.90); RDW 17.9 % (11.5-15.5); WBC 10.5 k/uL (3.8-10.6)
[2018-09-30] MEDS: metroNIDAZOLE-NS PMX 500 MG in SALINE 1 100ML.BAG IVPB SCH ×2 (17:57→23:12)
[2018-09-30 18:05] LABS: Anisocytosis Slight; HCT 24.5 % (39.0-53.0); HGB 8.3 gm/dL (13.0-17.5); Hypochromasia Slight; MCH 34.3 pg (25.0-35.0); MCHC 33.8 g/dL (31.0-37.0); MCV 101.5 fL (80.0-100.0); Macrocytosis Slight; Mean Platelet Volume 7.4; Platelet Count 125 k/uL (150-450); Poikilocytosis Slight; RBC 2.41 m/uL (4.30-5.90); RDW 16.9 % (11.5-15.5); WBC 10.2 k/uL (3.8-10.6)
--- NOTE | 2018-09-30 22:50 | P.CONS ---
History of Present Illness - Reason for Consult Consult date: 09/30/18 Sepsis Requesting physician: Gabriella Wong - Chief Complaint Vomiting and bleeding per rectum x 1 day - History of Present Illness Patient is a 62-year-old male presenting to the ER at [facility] with nausea vomiting and bleeding per rectum the symptom has been going on for a day before presenting to the hospital, The patient also has some abdominal discomfort and he was agitated on presentation to the hospital with concern for possible alcohol withdrawal the patient will be started on CIWA pathway and Ativan, however the patient remains to be agitated the patient and appropriately intubated to protect his airway in the meantime the patient also have EGD completed by GI with evidence of a bleeding duodenal ulcer patient did have a mildly elevated white count of 13,000 on admission he has not been running any fever or requiring any pressor support patient was started on Rocephin and he was consulted. Recommendation regarding possible sepsis most of the information has been obtained from review the chart and of the nose. 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 Retired from [employer] ([employer]). He has traveled nationally and internationally for his work, nothing recent. Pet dog in the home. Without a current tobacco smoker or alcohol user Smoking Status: Former smoker Past Alcohol Use History: None Reported Additional Past Alcohol Use History / Comment(s): Patient denies daily drinking, also denies more than 14 drinks in a week. Past Drug Use History: None Reported - Past Family History Mother Family Medical History: GERD/Reflux Additional Family Medical History / Comment(s): of crohn's disease Father Family Medical History: Diabetes Mellitus Medications and Allergies Home Medications Medication Instructions Recorded Confirmed Type Albuterol Sulfate [Proair Hfa] 2 puff INHALATION RT-QID PRN 09/05/14 09/29/18 History Multivit-Min/FA/Lycopen/Lutein 1 tab PO DAILY 11/15/16 09/29/18 History [Centrum Silver Tablet] Albuterol Nebulized [Ventolin 2.5 mg INHALATION RT-QID PRN 11/26/17 09/29/18 History Nebulized] Thiamine [Vitamin B-1] 100 mg PO BID-W/MEALS #60 tab 09/16/18 09/29/18 Rx Allergies Allergy/AdvReac Type Severity Reaction Status Date / Time No Known Allergies Allergy Verified 09/29/18 14:04 Physical Exam Vitals: Vital Signs Temp Pulse Pulse Resp BP BP Pulse Ox 09/30/18 12:09 76 09/30/18 11:50 77 09/30/18 09:00 77 15 121/61 100 09/30/18 08:55 75 09/30/18 08:43 76 09/30/18 08:30 78 14 112/66 100 09/30/18 08:00 98.5 F 77 16 109/44 100 09/30/18 07:30 73 14 120/83 100 09/30/18 07:00 79 18 103/64 100 09/30/18 06:30 72 12 116/52 100 09/30/18 06:00 72 14 116/68 100 09/30/18 05:30 74 12 133/75 100 09/30/18 05:00 77 18 116/69 99 09/30/18 04:30 73 16 105/60 100 09/30/18 04:00 96.8 F L 72 12 109/81 100 09/30/18 03:44 96.7 F L 74 20 109/81 100 09/30/18 03:30 72 18 117/63 100 09/30/18 03:00 73 12 97/61 100 09/30/18 02:30 75 16 102/55 100 09/30/18 02:23 96.3 F L 75 12 97/61 100 09/30/18 02:00 80 18 100/55 100 09/30/18 01:53 96.5 F L 80 16 102/55 100 09/30/18 01:43 96.2 F L 81 09/30/18 01:41 96.2 F L 81 16 100/55 100 09/30/18 01:30 84 12 119/69 100 09/30/18 01:00 88 18 122/58 100 09/30/18 00:30 89 14 107/71 100 09/30/18 00:14 98.4 F 84 16 122/58 100 09/30/18 00:00 97.1 F L 93 18 106/67 100 09/29/18 23:44 97.6 F 90 16 106/73 09/29/18 23:34 97.5 F L 86 16 103/63 100 09/29/18 23:30 86 18 114/60 100 09/29/18 23:00 96 16 138/79 100 09/29/18 22:30 112 H 16 151/89 100 09/29/18 22:00 98 12 112/65 100 09/29/18 21:30 111 H 22 143/71 92 L 09/29/18 21:00 114 H 20 136/67 92 L 09/29/18 20:30 89 20 142/77 92 L 09/29/18 20:03 96 09/29/18 20:02 100 09/29/18 20:00 97.4 F L 105 H 20 150/78 100 09/29/18 19:51 102 H 09/29/18 19:30 130 H 14 139/84 93 L 09/29/18 19:00 97.9 F 133 H 16 139/84 09/29/18 17:45 116 H 16 09/29/18 17:35 99.1 F 116 H 20 139/72 94 L 09/29/18 17:10 97.8 F 09/29/18 16:13 125 H 20 139/69 09/29/18 14:30 115 H 20 128/82 94 L 09/29/18 14:10 112 H 20 128/82 94 L 09/29/18 13:26 98.4 F 127 H 18 125/72 86 L Intake and Output 09/29/18 09/30/18 09/30/18 22:59 06:59 14:59 Intake Total 9473.599 6203.870 425 Output Total 265 345 200 Balance 789.318 3761.870 225 Intake: IV 1220 725 425 Invasive Line 1 10 Invasive Line 2 10 Magnesium Sulfate-D5w Pmx 200 1 gm In Dextrose/Water 1 100ml.bag @ 100 mls/hr IVPB Q1H [facility] Rx#: [id number] Sodium Chloride 0.9% 1, 75 000 ml @ 75 mls/hr IV . [id number] ONE with Mvi, Adult No.4 with Vit K 10 ml with Thiamine 100 mg with Folic Acid 1 mg Rx#: [id number] Sodium Chloride 0.9% 1, 1075 525 225 000 ml @ 999 mls/hr IV . Q1H1M ONE Rx#:[id number] cefTRIAXone 1 gm In 50 200 Sodium Chloride 0.9% 50 ml @ 100 mls/hr IVPB Q24HR [facility] Rx#:[id number] Intake, IV Titration 2.699 168.870 Amount Propofol 1,000 mg In 2.699 168.870 Empty Bag 1 bag @ Titrate IV .Q0M [facility] Rx#: [id number] Blood Product 620 Rc As-1 Unit 310 [id number] Rc As-1 Unit 310 [id number] Other 30 Output: Urine 265 345 200 Other: Voiding Method Incontinent Indwelling Catheter Indwelling Catheter # Voids 1 # Bowel Movements 1 1 Weight 75.8 kg GENERAL DESCRIPTION: Middle-aged male lying in bed, intubated on the vent No tachypnea or accessory muscle of respiration use. HEENT: Shows Pallor , no scleral icterus. Patient orally intubated, limiting Examination of oral cavity NECK: Trachea central, no thyromegaly. LUNGS: Unlabored breathing. Clear to auscultation anteriorly. No wheeze or crackle. HEART: S1, S2, regular rate and rhythm. No loud murmur ABDOMEN: Soft, no tenderness , guarding or rigidity, no organomegaly EXTREMITIES: No edema of feet. SKIN: No rash, no masses palpable. NEUROLOGICAL: The patient is sedated on the vent Results CBC & Chem 7: 09/30/18 17:55 09/30/18 05:14 Labs: Abnormal Lab Results - Last 24 Hours (Table) 09/29/18 09/29/18 09/29/18 Range/Units 13:49 13:49 13:49 WBC 13.0 H (3.8-10.6) k/uL RBC 2.52 L (4.30-5.90) m/uL Hgb 8.8 L D (13.0-17.5) gm/dL Hct 26.0 L (39.0-53.0) % MCV 103.1 H (80.0-100.0) fL MCH (25.0-35.0) pg RDW 15.7 H (11.5-15.5) % Neutrophils # 10.2 H (1.3-7.7) k/uL PT 15.1 H (9.0-12.0) sec INR 1.5 H (<1.2) ABG pCO2 (35-45) mmHg ABG pO2 (83-108) mmHg ABG HCO3 (21-25) mmol/L ABG O2 Saturation (94-97) % Chloride 111 H (98-107) mmol/L Carbon Dioxide 19 L (22-30) mmol/L BUN 41 H (9-20) mg/dL Glucose 132 H (74-99) mg/dL POC Glucose (mg/dL) (75-99) mg/dL Plasma Lactic Acid Milton (0.7-2.0) mmol/L Calcium (8.4-10.2) mg/dL Magnesium (1.6-2.3) mg/dL Total Bilirubin 1.5 H (0.2-1.3) mg/dL ALT 15 L (21-72) U/L Ammonia (<30) umol/L Total Protein 6.2 L (6.3-8.2) g/dL Albumin 2.5 L (3.5-5.0) g/dL Urine Opiates Screen (NotDetected) U Benzodiazepines Scrn (NotDetected) Crossmatch 09/29/18 09/29/18 09/29/18 Range/Units 13:49 18:05 18:09 WBC 12.6 H (3.8-10.6) k/uL RBC 2.09 L (4.30-5.90) m/uL Hgb 7.3 L D (13.0-17.5) gm/dL Hct 22.3 L (39.0-53.0) % MCV 106.4 H (80.0-100.0) fL MCH 35.1 H (25.0-35.0) pg RDW 15.7 H (11.5-15.5) % Neutrophils # (1.3-7.7) k/uL PT (9.0-12.0) sec INR (<1.2) ABG pCO2 (35-45) mmHg ABG pO2 (83-108) mmHg ABG HCO3 (21-25) mmol/L ABG O2 Saturation (94-97) % Chloride (98-107) mmol/L Carbon Dioxide (22-30) mmol/L BUN (9-20) mg/dL Glucose (74-99) mg/dL POC Glucose (mg/dL) (75-99) mg/dL Plasma Lactic Acid Milton 4.3 H* (0.7-2.0) mmol/L Calcium (8.4-10.2) mg/dL Magnesium (1.6-2.3) mg/dL Total Bilirubin (0.2-1.3) mg/dL ALT (21-72) U/L Ammonia 88 H (<30) umol/L Total Protein (6.3-8.2) g/dL Albumin (3.5-5.0) g/dL Urine Opiates Screen (NotDetected) U Benzodiazepines Scrn (NotDetected) Crossmatch See Detail 09/29/18 09/29/18 09/29/18 Range/Units 18:09 19:03 22:08 WBC (3.8-10.6) k/uL RBC (4.30-5.90) m/uL Hgb (13.0-17.5) gm/dL Hct (39.0-53.0) % MCV (80.0-100.0) fL MCH (25.0-35.0) pg RDW (11.5-15.5) % Neutrophils # (1.3-7.7) k/uL PT (9.0-12.0) sec INR (<1.2) ABG pCO2 27 L (35-45) mmHg ABG pO2 251 H (83-108) mmHg ABG HCO3 18 L (21-25) mmol/L ABG O2 Saturation 99.8 H (94-97) % Chloride 113 H (98-107) mmol/L Carbon Dioxide 16 L (22-30) mmol/L BUN 44 H (9-20) mg/dL Glucose 123 H (74-99) mg/dL POC Glucose (mg/dL) 128 H (75-99) mg/dL Plasma Lactic Acid Milton (0.7-2.0) mmol/L Calcium 8.2 L (8.4-10.2) mg/dL Magnesium (1.6-2.3) mg/dL Total Bilirubin (0.2-1.3) mg/dL ALT (21-72) U/L Ammonia (<30) umol/L Total Protein (6.3-8.2) g/dL Albumin (3.5-5.0) g/dL Urine Opiates Screen (NotDetected) U Benzodiazepines Scrn (NotDetected) Crossmatch 09/29/18 09/29/18 09/30/18 Range/Units 22:15 22:18 04:34 WBC (3.8-10.6) k/uL RBC (4.30-5.90) m/uL Hgb (13.0-17.5) gm/dL Hct (39.0-53.0) % MCV (80.0-100.0) fL MCH (25.0-35.0) pg RDW (11.5-15.5) % Neutrophils # (1.3-7.7) k/uL PT (9.0-12.0) sec INR (<1.2) ABG pCO2 33 L (35-45) mmHg ABG pO2 133 H (83-108) mmHg ABG HCO3 20 L (21-25) mmol/L ABG O2 Saturation 98.9 H (94-97) % Chloride (98-107) mmol/L Carbon Dioxide (22-30) mmol/L BUN (9-20) mg/dL Glucose (74-99) mg/dL POC Glucose (mg/dL) (75-99) mg/dL Plasma Lactic Acid Milton 2.9 H* (0.7-2.0) mmol/L Calcium (8.4-10.2) mg/dL Magnesium (1.6-2.3) mg/dL Total Bilirubin (0.2-1.3) mg/dL ALT (21-72) U/L Ammonia (<30) umol/L Total Protein (6.3-8.2) g/dL Albumin (3.5-5.0) g/dL Urine Opiates Screen Detected H (NotDetected) U Benzodiazepines Scrn Detected H (NotDetected) Crossmatch 09/30/18 09/30/18 09/30/18 Range/Units 05:14 05:14 07:46 WBC 10.7 H (3.8-10.6) k/uL RBC 2.53 L (4.30-5.90) m/uL Hgb 8.4 L (13.0-17.5) gm/dL Hct 25.9 L (39.0-53.0) % MCV 102.4 H (80.0-100.0) fL MCH (25.0-35.0) pg RDW 16.2 H (11.5-15.5) % Neutrophils # (1.3-7.7) k/uL PT (9.0-12.0) sec INR (<1.2) ABG pCO2 (35-45) mmHg ABG pO2 (83-108) mmHg ABG HCO3 (21-25) mmol/L ABG O2 Saturation (94-97) % Chloride 118 H (98-107) mmol/L Carbon Dioxide 17 L (22-30) mmol/L BUN 44 H (9-20) mg/dL Glucose 101 H (74-99) mg/dL POC Glucose (mg/dL) (75-99) mg/dL Plasma Lactic Acid Milton (0.7-2.0) mmol/L Calcium 7.7 L (8.4-10.2) mg/dL Magnesium 2.6 H (1.6-2.3) mg/dL Total Bilirubin (0.2-1.3) mg/dL ALT (21-72) U/L Ammonia 64 H (<30) umol/L Total Protein 5.0 L (6.3-8.2) g/dL Albumin 1.9 L (3.5-5.0) g/dL Urine Opiates Screen (NotDetected) U Benzodiazepines Scrn (NotDetected) Crossmatch Microbiology - Last 24 Hours (Table) 09/29/18 22:15 Urine Culture - Preliminary Urine,Catheterized Assessment and Plan Assessment: 1-patient admitted hospital with intractable nausea and vomiting in this patient who did have melena or bleeding per rectum, patient with no fever however did have elevated white count could be more likely reactive patient initial x-ray has been reported negative for any acute infiltrate subsequently the patient get intubated to protect his airway and a chest x-ray this morning showing right upper lobe infiltrate concern for possible aspiration pneumonitis is currently no obvious evidence of infection at any other part of the body Plan: 1-we will try to obtain sputum for Gram stain and culture 2-continue with the Rocephin however add Flagyl to cover for abdominal anaerobes we will follow up on clinical condition and cultures to further adjust medication if needed Thank you for this consultation will follow this patient along with you Time with Patient: Greater than 30
[2018-09-30 23:35] LABS: Anisocytosis Slight; Hypochromasia Slight; MCH 33.3 pg (25.0-35.0); MCHC 32.2 g/dL (31.0-37.0); MCV 103.6 fL (80.0-100.0); Macrocytosis Moderate; Mean Platelet Volume 7.3; Platelet Count 130 k/uL (150-450); Poikilocytosis Slight; RBC 2.41 m/uL (4.30-5.90); RDW 16.8 % (11.5-15.5); WBC 9.9 k/uL (3.8-10.6)
[2018-10-01] MEDS: IPRATROPIUM-ALBUTEROL 3 ML NEB INHALATION SCH ×8 (00:43→23:01)
[2018-10-01] MEDS: PROPOFOL 1,000 MG in EMPTY BAG 1 BAG IV SCH ×3 (03:05→21:56)
[2018-10-01 05:37] LABS: ABG Base Excess -5.5 mmol/L; ABG HCO3 19 mmol/L (21-25); ABG Oxygen Saturation 99.1 % (94-97); ABG PCO2 31 mmHg (35-45); ABG PH 7.41 (7.35-7.45); ABG PO2 132 mmHg (83-108); ABG TCO2 20 mmol/L (19-24); Allen Test Performed? Yes
[2018-10-01 05:49] LABS: Anisocytosis Slight; HCT 23.1 % (39.0-53.0); HGB 7.4 gm/dL (13.0-17.5); Hypochromasia Moderate; MCH 33.4 pg (25.0-35.0); MCHC 31.9 g/dL (31.0-37.0); MCV 104.7 fL (80.0-100.0); Macrocytosis Moderate; Mean Platelet Volume 7.1; Platelet Count 128 k/uL (150-450); Poikilocytosis Slight; RDW 17.1 % (11.5-15.5); WBC 7.7 k/uL (3.8-10.6)
[2018-10-01 05:55] LABS: Lactic Acid, Venous 1.5 mmol/L (0.7-2.0)
[2018-10-01 05:56] LABS: ALT 18 U/L (21-72); AST 26 U/L (17-59); African American GFR (CKD) >90 (>60 ml/min/1.73 sqM); Albumin 1.6 g/dL (3.5-5.0); Alkaline Phosphatase 75 U/L (38-126); Anion Gap 4 mmol/L; Blood Urea Nitrogen 36 mg/dL (9-20); Calcium 7.1 mg/dL (8.4-10.2); Carbon Dioxide 18 mmol/L (22-30); Chloride 120 mmol/L (98-107); Glucose 95 mg/dL (74-99); Potassium 3.9 mmol/L (3.5-5.1); Sodium 142 mmol/L (137-145); Total Bilirubin 1.1 mg/dL (0.2-1.3); Total Protein 4.4 g/dL (6.3-8.2)
[2018-10-01] MEDS: THIAMINE 100 MG TAB PO SCH ×2 (06:47→16:47)
[2018-10-01] MEDS ORDERED: POTASSIUM BICARBONATE/CIT AC 20 MEQ TABLET.EFF NG-TUBE SCH (07:00)
--- NOTE | 2018-10-01 08:20 | XR ---
EXAMINATION TYPE: XR chest 1V portable DATE OF EXAM: 10/01/2018 HISTORY: Shortness of breath. COMPARISON: 09/30/2018 TECHNIQUE: Single view of the chest is submitted. FINDINGS: Demonstrated are scattered senescent parenchymal change. There is no evidence for focal infiltrate. The heart is stable. Hilar and mediastinal structures are within normal limits. Degenerative changes are seen of the dorsal spine. IMPRESSION: 1. Chronic changes without evidence for acute pulmonary disease.
--- NOTE | 2018-10-01 09:02 | P.PN ---
Subjective Progress Note Date: 10/01/18 Principal diagnosis: Acute GI bleeding this is a 62-year-old white male who presented to the ER today with 1 day history of for large bloody bowel movements.this was associated with nausea and vomiting, he vomited some dark-looking material. Denied any hematemesis. Denied any melena. Apparently the patient was recently at [facility] for abdominal pain, exact workup is not clear at the time of this dictation, but he was discharged out of [facility] about 2 days ago. Since discharge, the patient has been feeling rundown and fatigued.on admission his initial hemoglobin was 8.8, since then patient had further episodes of bright red blood per rectum and bloody bowel movements, follow-up hemoglobin is 7.3, patient will be receiving blood transfusion, and arrangements were made for the patient to be admitted to the ICU.the patient himself is a very poor historian, apparently when he arrived he was extremely agitated, he is known to have history of alcohol abuse, hence he was given Ativan and he was placed on the C1wa protocol.during my evaluation, the patient was noted to be sedated, calm, cannot give much history, quite lethargic, arousable but easily gets agitated. Apparently his ammonia level was high, hence I recommended nasogastric tube to be placed and to start lactulose. As the patient may have obviously hepatic encephalopathy.lactic acid on admi ssion was 4.3, hence fluid boluses were given. Patient is not requiring any pressors, and he seems to be hemodynamically stable at this point.patient is also known to have history of COPD, mild clubbing noted on physical examination, hence he was placed on DuoNeb updrafts 4 times a day and when necessary. Patient was also placed on Rocephin for his presentation of hepatic encephalopathy and hyperammonemia. On 09/30/2018 patient seen in follow-up in the intensive care unit. Patient is on mechanical ventilator, sedated, and ventilating's are assist-control mode of ventilation with a rate of 12, tidal and 400, FiO2 of 40% and PEEP of 5, this morning his blood gases showed pO2 of 133, pCO2 33, and pH of 7.39, this was done on FiO2 of 50%, FiO2 had since been dropped down to 40%. IVs include 0.9 normal saline at a rate of 75 ML per hour, Diprivan and is at 50 mics per kilo per minute. Patient received 2 units of packed red blood cells for hemoglobin of 7.3, this morning hemoglobin is 8.4, with blood cell count is 10.7, platelet count is 159, and sodium is 142, potassium is 4.5, chloride is 118, CO2 17, BUN is 44, creatinine 0.87, urinalysis was clear, no signs of infection, drug screen was positive for opiates and benzodiazepines. Patient has been afebrile, was dynamically stable, his chest x-ray has been reviewed, showing COPD and newly developing infiltrate in the right upper lobe. Antibiotic coverage in the form of Rocephin. Blood cultures are pending, sputum culture will be sent. he is receiving lactulose per OG tube, and ammonia level is down to 64 on today's labs . We'll catheter is in, and patient is nonoliguric. Lung sounds are clear. On 10/01/2018 patient seen in follow-up in the intensive care unit, he remains sedated, and intubated, on mechanical ventilator. Yesterday patient underwent EGD, and was found to have a duodenal ulcer, which could not be clipped related to its location. Was injected with epinephrine. Today's labs have been reviewed, showing white blood cell count of 7.7, hemoglobin is 7.4, serum sodium is 142, potassium 3.9, chloride is 120, CO2 is 18, B1 is 36, creatinine 0.84. She received 2 units of packed red blood cells this admission. FMS system is in place, draining liquid melanotic stool. Hemodynamic patient is stable, heart rate is controlled. Lung sounds are clear, patient's comfortable on the ventilator, currently on assist control mode of ventilation with a rate of 12, tidal volume 400, FiO2 of 40%, and PEEP of 5, this morning his blood gases were reviewed, showing pO2 of 132, pCO2 of 31, pH of 7.40, and FiO2 was dropped down to 30%. Currently on IVs including 0.9 normal saline at 75 ML per hour, propof ol is at 50 mics per kilo per minute. No tube feedings right now. We'll proceed with sedation holiday today, to assess mentation, and likely proceed with weaning trials, with pressure support of 5, and CPAP of 5. Chest x-ray has been reviewed, showing chronic changes, without acute pulmonary disease. Objective - Vital Signs Vital signs: Vital Signs Temp 98.9 F 10/01/18 04:00 Pulse 97 10/01/18 08:52 Resp 12 10/01/18 07:00 BP 107/54 10/01/18 07:00 Pulse Ox 100 10/01/18 07:00 Intake & Output 09/30/18 10/01/18 10/01/18 18:59 06:59 18:59 Intake Total 1200 1133.130 164.823 Output Total 650 1227 40 Balance 550 -93.870 124.823 Weight 78 kg Intake: IV 1100 825 75 0.9 75 825 75 Sodium Chloride 0.9% 1, 600 000 ml @ 75 mls/hr IV . [id number] ONE with Mvi, Adult No.4 with Vit K 10 ml with Thiamine 100 mg with Folic Acid 1 mg Rx#: [id number] Sodium Chloride 0.9% 1, 225 000 ml @ 999 mls/hr IV . Q1H1M ONE Rx#:[id number] cefTRIAXone 1 gm In 200 Sodium Chloride 0.9% 50 ml @ 100 mls/hr IVPB Q24HR [facility] Rx#:[id number] Intake, IV Titration 100 278.130 89.823 Amount Propofol 1,000 mg In 100 178.130 89.823 Empty Bag 1 bag @ Titrate IV .Q0M [facility] Rx#: [id number] metroNIDAZOLE-NS PMX 500 100 mg In Saline 1 100ml.bag @ 100 mls/hr IVPB Q8HR [facility] Rx#:[id number] Other 30 Output: Urine 650 827 40 Stool 400 Other: Voiding Method Indwelling Catheter Indwelling Catheter - Exam GENERAL EXAM: Sedated, 62-year-old white male, intubated comfortable in no apparent distress. HEAD: Normocephalic/atraumatic. EYES: Normal reaction of pupils, equal size. Conjunctiva pink, sclera white. NOSE: Clear with pink turbinates. THROAT: No erythema or exudates. NECK: No masses, no JVD, no thyroid enlargement, no adenopathy. CHEST: No chest wall deformity. Symmetrical expansion. LUNGS: Equal air entry with no crackles, wheeze, rhonchi or dullness. CVS: Regular rate and rhythm, normal S1 and S2, no gallops, no murmurs, no rubs ABDOMEN: Soft, nontender. No hepatosplenomegaly, normal bowel sounds, no guarding or rigidity. EXTREMITIES: No clubbing, no edema, no cyanosis, 2+ pulses and upper and lower extremities. MUSCULOSKELETAL: Muscle strength and tone normal. SPINE: No scoliosis or deformity SKIN: No rashes CENTRAL NERVOUS SYSTEM: sedated No focal deficits, tone is normal in all 4 extremities. PSYCHIATRIC: Unable to assess, patient is sedated, intubated - Labs CBC & Chem 7: 10/01/18 05:28 10/01/18 05:28 Labs: Abnormal Lab Results - Last 24 Hours (Table) 09/30/18 09/30/18 09/30/18 Range/Units 12:13 17:55 23:21 RBC 2.48 L 2.41 L 2.41 L (4.30-5.90) m/uL Hgb 8.2 L 8.3 L 8.0 L (13.0-17.5) gm/dL Hct 25.2 L 24.5 L 25.0 L (39.0-53.0) % MCV 101.9 H 101.5 H 103.6 H (80.0-100.0) fL RDW 17.9 H 16.9 H 16.8 H (11.5-15.5) % Plt Count 134 L 125 L 130 L (150-450) k/uL ABG pCO2 (35-45) mmHg ABG pO2 (83-108) mmHg ABG HCO3 (21-25) mmol/L ABG O2 Saturation (94-97) % Chloride (98-107) mmol/L Carbon Dioxide (22-30) mmol/L BUN (9-20) mg/dL Calcium (8.4-10.2) mg/dL ALT (21-72) U/L Ammonia (<30) umol/L Total Protein (6.3-8.2) g/dL Albumin (3.5-5.0) g/dL 10/01/18 10/01/18 10/01/18 Range/Units 05:28 05:28 05:28 RBC 2.20 L (4.30-5.90) m/uL Hgb 7.4 L (13.0-17.5) gm/dL Hct 23.1 L (39.0-53.0) % MCV 104.7 H (80.0-100.0) fL RDW 17.1 H (11.5-15.5) % Plt Count 128 L (150-450) k/uL ABG pCO2 (35-45) mmHg ABG pO2 (83-108) mmHg ABG HCO3 (21-25) mmol/L ABG O2 Saturation (94-97) % Chloride 120 H (98-107) mmol/L Carbon Dioxide 18 L (22-30) mmol/L BUN 36 H (9-20) mg/dL Calcium 7.1 L (8.4-10.2) mg/dL ALT 18 L (21-72) U/L Ammonia 58 H (<30) umol/L Total Protein 4.4 L (6.3-8.2) g/dL Albumin 1.6 L (3.5-5.0) g/dL 10/01/18 Range/Units 05:35 RBC (4.30-5.90) m/uL Hgb (13.0-17.5) gm/dL Hct (39.0-53.0) % MCV (80.0-100.0) fL RDW (11.5-15.5) % Plt Count (150-450) k/uL ABG pCO2 31 L (35-45) mmHg ABG pO2 132 H (83-108) mmHg ABG HCO3 19 L (21-25) mmol/L ABG O2 Saturation 99.1 H (94-97) % Chloride (98-107) mmol/L Carbon Dioxide (22-30) mmol/L BUN (9-20) mg/dL Calcium (8.4-10.2) mg/dL ALT (21-72) U/L Ammonia (<30) umol/L Total Protein (6.3-8.2) g/dL Albumin (3.5-5.0) g/dL Microbiology - Last 24 Hours (Table) 09/29/18 18:09 Blood Culture - Preliminary Blood No Growth after 24 hours 09/29/18 22:15 Urine Culture - Preliminary Urine,Catheterized Assessment and Plan Plan: Assessment: Acute GI bleeding in a patient with known history of alcoholism, differential diagnoses includes peptic ulcer disease, esophageal varices, erosive gastritis, and even possibly diverticular disease/diverticulosis. he underwent EGD on 09/30/2018 was found to have a duodenal ulcer which was injected with epinephrine, but could not be clipped Acute hepatic encephalopathy with significantly elevated ammonia level secondary to underlying alcohol related liver disease. history of underlying COPD, patient is now on bronchodilators in the form of DuoNeb. Presently his COPD is inactive. Benign essential hypertension Degenerative joint disease History of alcohol abuse Plan: We will proceed with sedation holiday, and weaning trials, with pressure support of 5 and CPAP of 5. This morning's chest x-ray, blood gases, labs have been reviewed. His O2 was decreased down to 30%. Continue with the lactulose. Same antibiotics, patient is afebrile, hemodynamically stable. Continue breathing treatments. Continue with PPI therapy, SCDs for DVT prophylaxis, we'll continue to follow I performed a history & physical examination of the patient and discussed their management with my nurse practitioner, Irena Ortiz. I reviewed the nurse practitioner's note and agree with the documented findings and plan of care. Lung sounds are positive for clear breath sounds. The findings and the impression was discussed with the patient. I attest to the documentation by the nurse practitioner. Time with Patient: Greater than 30
[2018-10-01] MEDS: metroNIDAZOLE-NS PMX 500 MG in SALINE 1 100ML.BAG IVPB SCH ×3 (09:03→22:58)
[2018-10-01] MEDS: PANTOPRAZOLE 40 MG/10 ML VIAL IV SCH ×2 (09:03→21:07)
[2018-10-01] MEDS: CHLORHEXIDINE GLUCONATE 15 ML CUP MUCOUS MEM SCH ×2 (09:03→21:07)
[2018-10-01] MEDS: LACTULOSE 20 GM/30 ML CUP PO SCH ×3 (09:03→21:07)
--- NOTE | 2018-10-01 11:18 | P.PN ---
Subjective Progress Note Date: 10/01/18 Principal diagnosis: GI bleed duodenal ulcer Intubated. Off sedation. Passing black bowel movements per nursing. Hemoglobin 7.4. CBC pending. Ammonia 58. Objective - Vital Signs Vital signs: Vital Signs Temp 98.5 F 10/01/18 08:00 Pulse 99 10/01/18 10:00 Resp 13 10/01/18 10:00 BP 117/68 10/01/18 10:00 Pulse Ox 97 10/01/18 10:00 Intake & Output 09/30/18 10/01/18 10/01/18 18:59 06:59 18:59 Intake Total 1200 1133.130 389.823 Output Total 650 1227 265 Balance 550 -93.870 124.823 Weight 78 kg Intake: IV 1100 825 300 0.9 75 825 300 Sodium Chloride 0.9% 1, 600 000 ml @ 75 mls/hr IV . [id number] ONE with Mvi, Adult No.4 with Vit K 10 ml with Thiamine 100 mg with Folic Acid 1 mg Rx#: [id number] Sodium Chloride 0.9% 1, 225 000 ml @ 999 mls/hr IV . Q1H1M [facility] Rx#:[id number] cefTRIAXone 1 gm In 200 Sodium Chloride 0.9% 50 ml @ 100 mls/hr IVPB Q24HR [facility] Rx#:[id number] Intake, IV Titration 100 278.130 89.823 Amount Propofol 1,000 mg In 100 178.130 89.823 Empty Bag 1 bag @ Titrate IV .Q0M [facility] Rx#: [id number] metroNIDAZOLE-NS PMX 500 100 mg In Saline 1 100ml.bag @ 100 mls/hr IVPB Q8HR [facility] Rx#:[id number] Other 30 Output: Urine 650 827 265 Stool 400 Other: Voiding Method Indwelling Catheter Indwelling Catheter Indwelling Catheter - Exam General appearance: The patient is unresponsive intubated HEENT: Head is normocephalic and atraumatic. Pupils are equal and reactive. The nares are patent. Oropharynx is clear without lesions. Orogastric tube without bleeding. Neck: Supple without lymphadenopathy. Trachea midline. Heart: S1 S2. Regular rate and rhythm. Lungs: No crackles or wheezes are heard. Abdomen: Soft, nontender, nondistended with good bowel sounds. No peritoneal signs. No palpable organomegaly or masses. Extremities: Normal skin color and turgor. No cyanosis, rash, ulceration, c lubbing, or edema. Radial and pedal pulses are 2/4 bilaterally. Lim clear kylee urine. Neurological: Cannot be assessed at this time since the patient is intubated and sedated. - Labs CBC & Chem 7: 10/01/18 05:28 10/01/18 05:28 Labs: Abnormal Lab Results - Last 24 Hours (Table) 09/30/18 09/30/18 09/30/18 Range/Units 12:13 17:55 23:21 RBC 2.48 L 2.41 L 2.41 L (4.30-5.90) m/uL Hgb 8.2 L 8.3 L 8.0 L (13.0-17.5) gm/dL Hct 25.2 L 24.5 L 25.0 L (39.0-53.0) % MCV 101.9 H 101.5 H 103.6 H (80.0-100.0) fL RDW 17.9 H 16.9 H 16.8 H (11.5-15.5) % Plt Count 134 L 125 L 130 L (150-450) k/uL ABG pCO2 (35-45) mmHg ABG pO2 (83-108) mmHg ABG HCO3 (21-25) mmol/L ABG O2 Saturation (94-97) % Chloride (98-107) mmol/L Carbon Dioxide (22-30) mmol/L BUN (9-20) mg/dL Calcium (8.4-10.2) mg/dL ALT (21-72) U/L Ammonia (<30) umol/L Total Protein (6.3-8.2) g/dL Albumin (3.5-5.0) g/dL 10/01/18 10/01/18 10/01/18 Range/Units 05:28 05:28 05:28 RBC 2.20 L (4.30-5.90) m/uL Hgb 7.4 L (13.0-17.5) gm/dL Hct 23.1 L (39.0-53.0) % MCV 104.7 H (80.0-100.0) fL RDW 17.1 H (11.5-15.5) % Plt Count 128 L (150-450) k/uL ABG pCO2 (35-45) mmHg ABG pO2 (83-108) mmHg ABG HCO3 (21-25) mmol/L ABG O2 Saturation (94-97) % Chloride 120 H (98-107) mmol/L Carbon Dioxide 18 L (22-30) mmol/L BUN 36 H (9-20) mg/dL Calcium 7.1 L (8.4-10.2) mg/dL ALT 18 L (21-72) U/L Ammonia 58 H (<30) umol/L Total Protein 4.4 L (6.3-8.2) g/dL Albumin 1.6 L (3.5-5.0) g/dL 10/01/18 Range/Units 05:35 RBC (4.30-5.90) m/uL Hgb (13.0-17.5) gm/dL Hct (39.0-53.0) % MCV (80.0-100.0) fL RDW (11.5-15.5) % Plt Count (150-450) k/uL ABG pCO2 31 L (35-45) mmHg ABG pO2 132 H (83-108) mmHg ABG HCO3 19 L (21-25) mmol/L ABG O2 Saturation 99.1 H (94-97) % Chloride (98-107) mmol/L Carbon Dioxide (22-30) mmol/L BUN (9-20) mg/dL Calcium (8.4-10.2) mg/dL ALT (21-72) U/L Ammonia (<30) umol/L Total Protein (6.3-8.2) g/dL Albumin (3.5-5.0) g/dL Microbiology - Last 24 Hours (Table) 09/29/18 18:09 Blood Culture - Preliminary Blood No Growth after 24 hours 09/29/18 22:15 Urine Culture - Preliminary Urine,Catheterized Assessment and Plan (1) GI hemorrhage Current Visit: Yes Status: Acute Code(s): K92.2 - GASTROINTESTINAL HEMORRHAGE, UNSPECIFIED SNOMED Code(s): 76619221 (2) Duodenal ulcer Current Visit: Yes Status: Acute Code(s): K26.9 - DUODENAL ULCER, UNSP ACUTE OR CHRONIC, W/O HEMOR OR PERF SNOMED Code(s): 46913705 (3) Acute blood loss anemia Current Visit: Yes Status: Acute Code(s): D62 - ACUTE POSTHEMORRHAGIC ANEMIA SNOMED Code(s): 048456919 (4) H/O ETOH abuse Current Visit: Yes Status: Acute Code(s): F10.11 - ALCOHOL ABUSE, IN REMISSION SNOMED Code(s): 706623408 (5) Hepatic encephalopathy Current Visit: Yes Status: Acute Code(s): K72.90 - HEPATIC FAILURE, UNSPECIFIED WITHOUT COMA SNOMED Code(s): 62657136 (6) Endotracheally intubated Current Visit: Yes Status: Acute Code(s): Z97.8 - PRESENCE OF OTHER SPECIFIED DEVICES SNOMED Code(s): 499716603 Plan: 1. Nothing by mouth. Protonix terminaldaily. CBC monitoring. Extubation per inflated ball molder. Lactulose 20 g 3 times a day. We'll continue to follow. Assessment and plan a care discussed with Dr. Liriano
--- NOTE | 2018-10-01 12:18 | P.PN ---
Subjective Patient continues to be in intensive care sedated and intubated. Plan is for sedation holiday and attempt to wean. Patient was found to have a duodenal ulcer continues with burgundy stool. Objective - Vital Signs Vital signs: Vital Signs Temp 98.5 F 10/01/18 08:00 Pulse 104 H 10/01/18 12:04 Resp 13 10/01/18 10:00 BP 117/68 10/01/18 10:00 Pulse Ox 97 10/01/18 10:00 Intake & Output 09/30/18 10/01/18 10/01/18 18:59 06:59 18:59 Intake Total 1200 1133.130 389.823 Output Total 650 1227 265 Balance 550 -93.870 124.823 Weight 78 kg Intake: IV 1100 825 300 0.9 75 825 300 Sodium Chloride 0.9% 1, 600 000 ml @ 75 mls/hr IV . [id number] ONE with Mvi, Adult No.4 with Vit K 10 ml with Thiamine 100 mg with Folic Acid 1 mg Rx#: [id number] Sodium Chloride 0.9% 1, 225 000 ml @ 999 mls/hr IV . Q1H1M [facility] Rx#:[id number] cefTRIAXone 1 gm In 200 Sodium Chloride 0.9% 50 ml @ 100 mls/hr IVPB Q24HR [facility] Rx#:[id number] Intake, IV Titration 100 278.130 89.823 Amount Propofol 1,000 mg In 100 178.130 89.823 Empty Bag 1 bag @ Titrate IV .Q0M [facility] Rx#: [id number] metroNIDAZOLE-NS PMX 500 100 mg In Saline 1 100ml.bag @ 100 mls/hr IVPB Q8HR [facility] Rx#:[id number] Other 30 Output: Urine 650 827 265 Stool 400 Other: Voiding Method Indwelling Catheter Indwelling Catheter Indwelling Catheter - Constitutional General appearance: Present: average body habitus - Respiratory Respiratory: bilateral: CTA - Cardiovascular Rhythm: regular - Gastrointestinal General gastrointestinal: Present: soft - Integumentary Integumentary: Present: normal - Musculoskeletal Musculoskeletal: Present: generalized weakness - Psychiatric Psychiatric Comment(s): Patient intubated and sedated - Labs CBC & Chem 7: 10/01/18 05:28 10/01/18 05:28 Labs: Abnormal Lab Results - Last 24 Hours (Table) 09/30/18 09/30/18 09/30/18 Range/Units 12:13 17:55 23:21 RBC 2.48 L 2.41 L 2.41 L (4.30-5.90) m/uL Hgb 8.2 L 8.3 L 8.0 L (13.0-17.5) gm/dL Hct 25.2 L 24.5 L 25.0 L (39.0-53.0) % MCV 101.9 H 101.5 H 103.6 H (80.0-100.0) fL RDW 17.9 H 16.9 H 16.8 H (11.5-15.5) % Plt Count 134 L 125 L 130 L (150-450) k/uL ABG pCO2 (35-45) mmHg ABG pO2 (83-108) mmHg ABG HCO3 (21-25) mmol/L ABG O2 Saturation (94-97) % Chloride (98-107) mmol/L Carbon Dioxide (22-30) mmol/L BUN (9-20) mg/dL Calcium (8.4-10.2) mg/dL ALT (21-72) U/L Ammonia (<30) umol/L Total Protein (6.3-8.2) g/dL Albumin (3.5-5.0) g/dL 10/01/18 10/01/18 10/01/18 Range/Units 05:28 05:28 05:28 RBC 2.20 L (4.30-5.90) m/uL Hgb 7.4 L (13.0-17.5) gm/dL Hct 23.1 L (39.0-53.0) % MCV 104.7 H (80.0-100.0) fL RDW 17.1 H (11.5-15.5) % Plt Count 128 L (150-450) k/uL ABG pCO2 (35-45) mmHg ABG pO2 (83-108) mmHg ABG HCO3 (21-25) mmol/L ABG O2 Saturation (94-97) % Chloride 120 H (98-107) mmol/L Carbon Dioxide 18 L (22-30) mmol/L BUN 36 H (9-20) mg/dL Calcium 7.1 L (8.4-10.2) mg/dL ALT 18 L (21-72) U/L Ammonia 58 H (<30) umol/L Total Protein 4.4 L (6.3-8.2) g/dL Albumin 1.6 L (3.5-5.0) g/dL 10/01/18 Range/Units 05:35 RBC (4.30-5.90) m/uL Hgb (13.0-17.5) gm/dL Hct (39.0-53.0) % MCV (80.0-100.0) fL RDW (11.5-15.5) % Plt Count (150-450) k/uL ABG pCO2 31 L (35-45) mmHg ABG pO2 132 H (83-108) mmHg ABG HCO3 19 L (21-25) mmol/L ABG O2 Saturation 99.1 H (94-97) % Chloride (98-107) mmol/L Carbon Dioxide (22-30) mmol/L BUN (9-20) mg/dL Calcium (8.4-10.2) mg/dL ALT (21-72) U/L Ammonia (<30) umol/L Total Protein (6.3-8.2) g/dL Albumin (3.5-5.0) g/dL Microbiology - Last 24 Hours (Table) 09/29/18 18:09 Blood Culture - Preliminary Blood No Growth after 24 hours 09/29/18 22:15 Urine Culture - Preliminary Urine,Catheterized Assessment and Plan Plan: Assessment Upper gastrointestinal bleed with duodenal ulcer Anemia secondary to acute GI bleed Altered mental status metabolic encephalopathy related to hepatic encephalopathy elevated ammonia level history of alcohol abuse Gallbladder mass was attempting to have patient have consult with Dr. Teresa in [facility] Leukocytosis History of COPD GERD Plan Pulmonology attempting wean with sedation holiday Continue consultation with gastroenterology may need surgical consultation Long-term patient needs to see Dr. Teresa in [facility] for gallbladder mass
[2018-10-01 12:37] LABS: Anisocytosis Slight; HCT 23.7 % (39.0-53.0); Hypochromasia Slight; MCH 34.4 pg (25.0-35.0); MCHC 33.8 g/dL (31.0-37.0); MCV 101.7 fL (80.0-100.0); Macrocytosis Moderate; Mean Platelet Volume 7.8; Platelet Count 134 k/uL (150-450); Poikilocytosis Slight; RBC 2.33 m/uL (4.30-5.90)
[2018-10-01 16:57] LABS: Glucose,Whole Blood 139 mg/dL (75-99)
[2018-10-01 19:06] LABS: Anisocytosis Slight; HCT 23.6 % (39.0-53.0); HGB 7.6 gm/dL (13.0-17.5); Hypochromasia Slight; MCH 33.1 pg (25.0-35.0); MCHC 32.3 g/dL (31.0-37.0); MCV 102.5 fL (80.0-100.0); Macrocytosis Moderate; Mean Platelet Volume 7.9; Platelet Count 137 k/uL (150-450); Poikilocytosis Slight; RDW 17.8 % (11.5-15.5); WBC 7.2 k/uL (3.8-10.6)
--- NOTE | 2018-10-01 22:20 | P.PN ---
Subjective Progress Note Date: 10/01/18 Principal diagnosis: Possible aspiration pneumonia Patient is a 62-year-old male admitted to hospital with GI bleed status post EGD with evidence of bleeding duodenal ulcer patient also have possible DTs and acute respiratory failure currently intubated on the vent, with right upper lobe infiltrate concern for possible aspiration pneumonitis On today's evaluation that is 10/01/2018, the patient is afebrile, the patient is hemodynamically stable not requiring any pressor support FiO2 is currently stable sedation slowly being cut down no significant purulent secretion through the ET tube per the RN Objective - Vital Signs Vital signs: Vital Signs Temp 98.6 F 10/01/18 20:00 Pulse 109 H 10/01/18 22:00 Resp 11 L 10/01/18 22:00 BP 111/64 10/01/18 22:00 Pulse Ox 95 10/01/18 22:00 Intake & Output 10/01/18 10/01/18 10/02/18 06:59 18:59 06:59 Intake Total 1133.130 995.049 311.973 Output Total 1227 1065 645 Balance -93.870 -69.951 -333.027 Weight 78 kg Intake: IV 825 900 300 0.9 825 900 300 Intake, IV Titration 278.130 95.049 11.973 Amount Propofol 1,000 mg In 178.130 95.049 11.973 Empty Bag 1 bag @ Titrate IV .Q0M [facility] Rx#: [id number] metroNIDAZOLE-NS PMX 500 100 mg In Saline 1 100ml.bag @ 100 mls/hr IVPB Q8HR [facility] Rx#:[id number] Other 30 Output: Urine 827 665 645 Stool 400 400 Other: Voiding Method Indwelling Catheter Indwelling Catheter - Exam GENERAL DESCRIPTION:[ Patient is currently sedated on the vent] HEENT: [Patient is orally intubated limiting examination oral cavity] EYES : [No pallor or scleral icterus] RESPIRATORY SYSTEM: [Unlabored breathing , decreased breath sounds at the base] CARDIA VASCULAR SYSTEM: [S1-S2 regular rate and rhythm no murmur] GI: [Abdominal soft there's no tenderness no organomegaly] EXTREMITIES: [No edema feet] - Labs CBC & Chem 7: 10/01/18 18:22 10/01/18 05:28 Labs: Abnormal Lab Results - Last 24 Hours (Table) 09/30/18 10/01/18 10/01/18 Range/Units 23:21 05:28 05:28 RBC 2.41 L 2.20 L (4.30-5.90) m/uL Hgb 8.0 L 7.4 L (13.0-17.5) gm/dL Hct 25.0 L 23.1 L (39.0-53.0) % MCV 103.6 H 104.7 H (80.0-100.0) fL RDW 16.8 H 17.1 H (11.5-15.5) % Plt Count 130 L 128 L (150-450) k/uL ABG pCO2 (35-45) mmHg ABG pO2 (83-108) mmHg ABG HCO3 (21-25) mmol/L ABG O2 Saturation (94-97) % Chloride 120 H (98-107) mmol/L Carbon Dioxide 18 L (22-30) mmol/L BUN 36 H (9-20) mg/dL POC Glucose (mg/dL) (75-99) mg/dL Calcium 7.1 L (8.4-10.2) mg/dL ALT 18 L (21-72) U/L Ammonia (<30) umol/L Total Protein 4.4 L (6.3-8.2) g/dL Albumin 1.6 L (3.5-5.0) g/dL 10/01/18 10/01/18 10/01/18 Range/Units 05:28 05:35 11:47 RBC 2.33 L (4.30-5.90) m/uL Hgb 8.0 L (13.0-17.5) gm/dL Hct 23.7 L (39.0-53.0) % MCV 101.7 H (80.0-100.0) fL RDW 18.0 H (11.5-15.5) % Plt Count 134 L (150-450) k/uL ABG pCO2 31 L (35-45) mmHg ABG pO2 132 H (83-108) mmHg ABG HCO3 19 L (21-25) mmol/L ABG O2 Saturation 99.1 H (94-97) % Chloride (98-107) mmol/L Carbon Dioxide (22-30) mmol/L BUN (9-20) mg/dL POC Glucose (mg/dL) (75-99) mg/dL Calcium (8.4-10.2) mg/dL ALT (21-72) U/L Ammonia 58 H (<30) umol/L Total Protein (6.3-8.2) g/dL Albumin (3.5-5.0) g/dL 10/01/18 10/01/18 Range/Units 16:45 18:22 RBC 2.30 L (4.30-5.90) m/uL Hgb 7.6 L (13.0-17.5) gm/dL Hct 23.6 L (39.0-53.0) % MCV 102.5 H (80.0-100.0) fL RDW 17.8 H (11.5-15.5) % Plt Count 137 L (150-450) k/uL ABG pCO2 (35-45) mmHg ABG pO2 (83-108) mmHg ABG HCO3 (21-25) mmol/L ABG O2 Saturation (94-97) % Chloride (98-107) mmol/L Carbon Dioxide (22-30) mmol/L BUN (9-20) mg/dL POC Glucose (mg/dL) 139 H (75-99) mg/dL Calcium (8.4-10.2) mg/dL ALT (21-72) U/L Ammonia (<30) umol/L Total Protein (6.3-8.2) g/dL Albumin (3.5-5.0) g/dL Microbiology - Last 24 Hours (Table) 09/29/18 18:09 Blood Culture - Preliminary Blood No Growth after 48 hours 10/01/18 11:50 Sputum Culture - Preliminary Sputum 09/29/18 22:15 Urine Culture - Final Urine,Catheterized Assessment and Plan Assessment: 1-patient admitted hospital with intractable nausea and vomiting in this patient who did have melena or bleeding per rectum, patient with no fever however did have elevated white count could be more likely reactive patient initial x-ray has been reported negative for any acute infiltrate subsequently the patient get intubated to protect his airway and a chest x-ray showed right upper lobe infiltrate concern for possible aspiration pneumonitis Plan: 1-RN has been instructed to obtain sputum for Gram stain and culture 2-continue with the Rocephin and Flagyl to cover for possible aspiration pneumonitis Brother at the bedside questions were answered Time with Patient: Less than 30
[2018-10-02] MEDS ORDERED: IPRATROPIUM-ALBUTEROL 3 ML NEB ONE ×2
[2018-10-02 03:47] LABS: Glucose,Whole Blood 132 mg/dL (75-99)
[2018-10-02 04:43] LABS: Anisocytosis Slight; HCT 23.8 % (39.0-53.0); HGB 7.7 gm/dL (13.0-17.5); Hypochromasia Slight; MCH 33.2 pg (25.0-35.0); MCHC 32.2 g/dL (31.0-37.0); MCV 103.2 fL (80.0-100.0); Macrocytosis Moderate; Mean Platelet Volume 7.3; Platelet Count 148 k/uL (150-450); Poikilocytosis Slight; RBC 2.31 m/uL (4.30-5.90); WBC 7.9 k/uL (3.8-10.6)
[2018-10-02] MEDS: IPRATROPIUM-ALBUTEROL 3 ML NEB INHALATION SCH ×5 (04:58→19:07)
[2018-10-02] MEDS: PROPOFOL 1,000 MG in EMPTY BAG 1 BAG IV SCH ×4 (05:18→23:00)
[2018-10-02 06:00] LABS: Glucose,Whole Blood 118 mg/dL (75-99)
[2018-10-02 06:16] LABS: Anisocytosis Slight; HCT 23.1 % (39.0-53.0); HGB 7.3 gm/dL (13.0-17.5); Hypochromasia Moderate; MCH 33.1 pg (25.0-35.0); MCHC 31.7 g/dL (31.0-37.0); MCV 104.3 fL (80.0-100.0); Macrocytosis Moderate; Mean Platelet Volume 7.8; Platelet Count 125 k/uL (150-450); Poikilocytosis Slight; RBC 2.21 m/uL (4.30-5.90); RDW 17.5 % (11.5-15.5); WBC 6.9 k/uL (3.8-10.6)
[2018-10-02 06:35] LABS: ALT 20 U/L (21-72); AST 30 U/L (17-59); African American GFR (CKD) >90 (>60 ml/min/1.73 sqM); Albumin 1.8 g/dL (3.5-5.0); Alkaline Phosphatase 91 U/L (38-126); Anion Gap 5 mmol/L; Blood Urea Nitrogen 28 mg/dL (9-20); Calcium 7.3 mg/dL (8.4-10.2); Carbon Dioxide 18 mmol/L (22-30); Chloride 124 mmol/L (98-107); Glucose 113 mg/dL (74-99); Potassium 3.3 mmol/L (3.5-5.1); Sodium 147 mmol/L (137-145); Total Bilirubin 1.1 mg/dL (0.2-1.3); Total Protein 4.8 g/dL (6.3-8.2)
[2018-10-02] MEDS ORDERED: Potassium Replacement Protocol 1 EACH MISC MISCELLANE PRN ×2 (06:39→12:16)
[2018-10-02 07:28] LABS: ABG Base Excess -5.3 mmol/L; ABG HCO3 20 mmol/L (21-25); ABG Oxygen Saturation 91.3 % (94-97); ABG PCO2 36 mmHg (35-45); ABG PH 7.36 (7.35-7.45); ABG PO2 63 mmHg (83-108); ABG TCO2 21 mmol/L (19-24); Allen Test Performed? Yes
--- NOTE | 2018-10-02 08:52 | XR ---
EXAMINATION TYPE: XR chest 1V portable DATE OF EXAM: 10/02/2018 COMPARISON: 10/01/2018 INDICATION: Tube placement TECHNIQUE: Single frontal view of the chest is obtained. FINDINGS: The heart size is normal. The pulmonary vasculature is normal. The lungs are clear. Endotracheal tube tip is above the luiza. Nasogastric tube transverses the thorax. EKG leads overlie the chest. IMPRESSION: 1. No acute pulmonary process. 2. Lines and catheters discussed above.
[2018-10-02] MEDS: CHLORHEXIDINE GLUCONATE 15 ML CUP MUCOUS MEM SCH ×2 (08:56→21:15)
[2018-10-02] MEDS: LACTULOSE 20 GM/30 ML CUP PO SCH (08:56)
[2018-10-02] MEDS: PANTOPRAZOLE 40 MG/10 ML VIAL IV SCH ×2 (08:57→21:15)
[2018-10-02] MEDS: POTASSIUM BICARBONATE/CIT AC 20 MEQ TABLET.EFF NG-TUBE SCH ×4 (08:57→21:14)
[2018-10-02] MEDS: DEXTROSE 5% IN WATER 1,000 ML IV SCH ×2 (08:57→22:49)
[2018-10-02] MEDS: THIAMINE 100 MG TAB PO SCH ×2 (08:57→16:40)
[2018-10-02] MEDS: metroNIDAZOLE-NS PMX 500 MG in SALINE 1 100ML.BAG IVPB SCH ×2 (09:09→16:40)
--- NOTE | 2018-10-02 09:33 | P.PN ---
Subjective Progress Note Date: 10/02/18 Principal diagnosis: Acute GI bleeding this is a 62-year-old white male who presented to the ER today with 1 day history of for large bloody bowel movements.this was associated with nausea and vomiting, he vomited some dark-looking material. Denied any hematemesis. Denied any melena. Apparently the patient was recently at [facility] for abdominal pain, exact workup is not clear at the time of this dictation, but he was discharged out of [facility] about 2 days ago. Since discharge, the patient has been feeling rundown and fatigued.on admission his initial hemoglobin was 8.8, since then patient had further episodes of bright red blood per rectum and bloody bowel movements, follow-up hemoglobin is 7.3, patient will be receiving blood transfusion, and arrangements were made for the patient to be admitted to the ICU.the patient himself is a very poor historian, apparently when he arrived he was extremely agitated, he is known to have history of alcohol abuse, hence he was given Ativan and he was placed on the C1wa protocol.during my evaluation, the patient was noted to be sedated, calm, cannot give much history, quite lethargic, arousable but easily gets agitated. Apparently his ammonia level was high, hence I recommended nasogastric tube to be placed and to start lactulose. As the patient may have obviously hepatic encephalopathy.lactic acid on admi ssion was 4.3, hence fluid boluses were given. Patient is not requiring any pressors, and he seems to be hemodynamically stable at this point.patient is also known to have history of COPD, mild clubbing noted on physical examination, hence he was placed on DuoNeb updrafts 4 times a day and when necessary. Patient was also placed on Rocephin for his presentation of hepatic encephalopathy and hyperammonemia. On 09/30/2018 patient seen in follow-up in the intensive care unit. Patient is on mechanical ventilator, sedated, and ventilating's are assist-control mode of ventilation with a rate of 12, tidal and 400, FiO2 of 40% and PEEP of 5, this morning his blood gases showed pO2 of 133, pCO2 33, and pH of 7.39, this was done on FiO2 of 50%, FiO2 had since been dropped down to 40%. IVs include 0.9 normal saline at a rate of 75 ML per hour, Diprivan and is at 50 mics per kilo per minute. Patient received 2 units of packed red blood cells for hemoglobin of 7.3, this morning hemoglobin is 8.4, with blood cell count is 10.7, platelet count is 159, and sodium is 142, potassium is 4.5, chloride is 118, CO2 17, BUN is 44, creatinine 0.87, urinalysis was clear, no signs of infection, drug screen was positive for opiates and benzodiazepines. Patient has been afebrile, was dynamically stable, his chest x-ray has been reviewed, showing COPD and newly developing infiltrate in the right upper lobe. Antibiotic coverage in the form of Rocephin. Blood cultures are pending, sputum culture will be sent. he is receiving lactulose per OG tube, and ammonia level is down to 64 on today's labs . We'll catheter is in, and patient is nonoliguric. Lung sounds are clear. On 10/01/2018 patient seen in follow-up in the intensive care unit, he remains sedated, and intubated, on mechanical ventilator. Yesterday patient underwent EGD, and was found to have a duodenal ulcer, which could not be clipped related to its location. Was injected with epinephrine. Today's labs have been reviewed, showing white blood cell count of 7.7, hemoglobin is 7.4, serum sodium is 142, potassium 3.9, chloride is 120, CO2 is 18, B1 is 36, creatinine 0.84. She received 2 units of packed red blood cells this admission. FMS system is in place, draining liquid melanotic stool. Hemodynamic patient is stable, heart rate is controlled. Lung sounds are clear, patient's comfortable on the ventilator, currently on assist control mode of ventilation with a rate of 12, tidal volume 400, FiO2 of 40%, and PEEP of 5, this morning his blood gases were reviewed, showing pO2 of 132, pCO2 of 31, pH of 7.40, and FiO2 was dropped down to 30%. Currently on IVs including 0.9 normal saline at 75 ML per hour, propof ol is at 50 mics per kilo per minute. No tube feedings right now. We'll proceed with sedation holiday today, to assess mentation, and likely proceed with weaning trials, with pressure support of 5, and CPAP of 5. Chest x-ray has been reviewed, showing chronic changes, without acute pulmonary disease. On 10/02/2018 patient seen in follow-up in the intensive care unit. Patient has been off sedation since this morning, but remains very sedated. Intubated on mechanical ventilator, on assist control mode of ventilation with a rate of 12, tidal vital 400, FiO2 30% and PEEP of 5. This morning blood gases were reviewed, showing a pO2 of 64, pCO2 46, and pH of 7.36. Chest x-ray this morning showed no acute pulmonary process, lungs are clear, ET-tube and a NG- tube in the appropriate positions. No acute events overnight, yesterday patient was given sedation holiday, however he never did fully wake up and follow commands, and in the evening became quite tachypneic and was placed back on s edation. IV 0.9 normal saline at a rate of 75 ML per hour, no other drips, this morning's blood work has been reviewed, showing white blood cell count is 6.9, hemoglobin of 7.3, the patient has a fecal management system in place, and he is putting out liquid melanotic stool. Receiving lactulose, he did produce 1100 mL of liquid stool in the last 24 hours. He is developing fluid volume contraction alkalosis and hypernatremia. He has been nothing by mouth, no nutrition since admission. We will inquire with GI service whether tube feedings can be started. Lung sounds are clear. Microbiology data has been reviewed, showing blood, urine and sputum cultures are no growth so far, final cultures are pending. Better coverage in the form of Rocephin and Flagyl. Objective - Vital Signs Vital signs: Vital Signs Temp 97.7 F 10/02/18 08:00 Pulse 78 10/02/18 09:00 Resp 20 10/02/18 09:00 BP 119/64 10/02/18 09:00 Pulse Ox 97 10/02/18 09:00 Intake & Output 10/01/18 10/02/18 10/02/18 18:59 06:59 18:59 Intake Total 995.049 934.827 468.398 Output Total 1065 1630 90 Balance -69.951 -695.173 378.398 Weight 78 kg 78 kg Intake: IV 900 900 275 cefTRIAXone 1 gm In 50 Sodium Chloride 0.9% 50 ml @ 100 mls/hr IVPB Q24HR A[facility] Rx#:[id number] dextrose 5% 900 900 225 Intake, IV Titration 95.049 34.827 73.398 Amount Propofol 1,000 mg In 95.049 34.827 73.398 Empty Bag 1 bag @ Titrate IV .Q0M ASHLEY Rx#: [id number] Oral 120 Output: Urine 665 930 90 Stool 400 700 Other: Voiding Method Indwelling Catheter Indwelling Catheter - Exam GENERAL EXAM: Sedated, 62-year-old white male, intubated comfortable in no apparent distress. HEAD: Normocephalic/atraumatic. EYES: Normal reaction of pupils, equal size. Conjunctiva pink, sclera white. NOSE: Clear with pink turbinates. THROAT: No erythema or exudates. NECK: No masses, no JVD, no thyroid enlargement, no adenopathy. CHEST: No chest wall deformity. Symmetrical expansion. LUNGS: Equal air entry with no crackles, wheeze, rhonchi or dullness. CVS: Regular rate and rhythm, normal S1 and S2, no gallops, no murmurs, no rubs ABDOMEN: Soft, nontender. No hepatosplenomegaly, normal bowel sounds, no gua rding or rigidity. EXTREMITIES: No clubbing, no edema, no cyanosis, 2+ pulses and upper and lower extremities. MUSCULOSKELETAL: Muscle strength and tone normal. SPINE: No scoliosis or deformity SKIN: No rashes CENTRAL NERVOUS SYSTEM: sedated No focal deficits, tone is normal in all 4 extremities. PSYCHIATRIC: Unable to assess, patient is sedated, intubated - Labs CBC & Chem 7: 10/02/18 05:58 10/02/18 05:58 Labs: Abnormal Lab Results - Last 24 Hours (Table) 10/01/18 10/01/18 10/01/18 Range/Units 11:47 16:45 18:22 RBC 2.33 L 2.30 L (4.30-5.90) m/uL Hgb 8.0 L 7.6 L (13.0-17.5) gm/dL Hct 23.7 L 23.6 L (39.0-53.0) % MCV 101.7 H 102.5 H (80.0-100.0) fL RDW 18.0 H 17.8 H (11.5-15.5) % Plt Count 134 L 137 L (150-450) k/uL ABG pO2 (83-108) mmHg ABG HCO3 (21-25) mmol/L ABG O2 Saturation (94-97) % Sodium (137-145) mmol/L Potassium (3.5-5.1) mmol/L Chloride (98-107) mmol/L Carbon Dioxide (22-30) mmol/L BUN (9-20) mg/dL Glucose (74-99) mg/dL POC Glucose (mg/dL) 139 H (75-99) mg/dL Calcium (8.4-10.2) mg/dL ALT (21-72) U/L Total Protein (6.3-8.2) g/dL Albumin (3.5-5.0) g/dL 10/01/18 10/02/18 10/02/18 Range/Units 23:34 00:15 04:57 RBC 2.31 L (4.30-5.90) m/uL Hgb 7.7 L (13.0-17.5) gm/dL Hct 23.8 L (39.0-53.0) % MCV 103.2 H (80.0-100.0) fL RDW 17.0 H (11.5-15.5) % Plt Count 148 L (150-450) k/uL ABG pO2 63 L (83-108) mmHg ABG HCO3 20 L (21-25) mmol/L ABG O2 Saturation 91.3 L (94-97) % Sodium (137-145) mmol/L Potassium (3.5-5.1) mmol/L Chloride (98-107) mmol/L Carbon Dioxide (22-30) mmol/L BUN (9-20) mg/dL Glucose (74-99) mg/dL POC Glucose (mg/dL) 132 H (75-99) mg/dL Calcium (8.4-10.2) mg/dL ALT (21-72) U/L Total Protein (6.3-8.2) g/dL Albumin (3.5-5.0) g/dL 10/02/18 10/02/18 10/02/18 Range/Units 05:49 05:58 05:58 RBC 2.21 L (4.30-5.90) m/uL Hgb 7.3 L (13.0-17.5) gm/dL Hct 23.1 L (39.0-53.0) % MCV 104.3 H (80.0-100.0) fL RDW 17.5 H (11.5-15.5) % Plt Count 125 L (150-450) k/uL ABG pO2 (83-108) mmHg ABG HCO3 (21-25) mmol/L ABG O2 Saturation (94-97) % Sodium 147 H (137-145) mmol/L Potassium 3.3 L (3.5-5.1) mmol/L Chloride 124 H (98-107) mmol/L Carbon Dioxide 18 L (22-30) mmol/L BUN 28 H (9-20) mg/dL Glucose 113 H (74-99) mg/dL POC Glucose (mg/dL) 118 H (75-99) mg/dL Calcium 7.3 L (8.4-10.2) mg/dL ALT 20 L (21-72) U/L Total Protein 4.8 L (6.3-8.2) g/dL Albumin 1.8 L (3.5-5.0) g/dL Microbiology - Last 24 Hours (Table) 10/01/18 11:50 Gram Stain - Preliminary Sputum Sputum Culture - Preliminary 09/29/18 18:09 Blood Culture - Preliminary Blood No Growth after 48 hours 09/29/18 22:15 Urine Culture - Final Urine,Catheterized Assessment and Plan Plan: Assessment: Acute GI bleeding in a patient with known history of alcoholism, differential diagnoses includes peptic ulcer disease, esophageal varices, erosive gastritis, and even possibly diverticular disease/diverticulosis. he underwent EGD on 09/30/2018 was found to have a duodenal ulcer which was injected with epi nephrine, but could not be clipped Acute hepatic encephalopathy with significantly elevated ammonia level secondary to underlying alcohol related liver disease. history of underlying COPD, patient is now on bronchodilators in the form of DuoNeb. Presently his COPD is inactive. Benign essential hypertension Degenerative joint disease History of alcohol abuse Volume contraction alkalosis Hyponatremia and hyperchloremia related to free water deficit and infusion of 0.9 normal saline Plan: Hold sedation, let patient wake up, if follows command will proceed with weaning trials. Chest X-ray and labs have been reviewed this am. Blood gas reviewed. Will obtain ammonia level today, but he has been down trending in the last few days. Cut back the dose of lactulose to once daily. Swtich the IV 0.9 normal saline to D5W at a rate of 75 ML per hour. We will inquire with the GI service with the patient can be fed by NG tube, if there is contraindication we'll have to consider TPN. Continue with current antibiotics, microbiology data has been reviewed, remains negative thus far. I performed a history & physical examination of the patient and discussed their management with my nurse practitioner, Irena Ortiz. I reviewed the nurse practitioner's note and agree with the documented findings and plan of care. Lung sounds are positive for clear breath sounds. The findings and the impression was discussed with the patient. I attest to the documentation by the nurse practitioner. Time with Patient: Greater than 30
--- NOTE | 2018-10-02 10:40 | P.PN ---
Subjective Progress Note Date: 10/02/18 Principal diagnosis: GI bleed duodenal ulcer Intubated. Fecal management system with mixed green dark black stool. No gross hematochezia. No bloody output from OG. Hemoglobin 7.3. Objective - Vital Signs Vital signs: Vital Signs Temp 97.7 F 10/02/18 08:00 Pulse 85 10/02/18 10:00 Resp 26 H 10/02/18 10:00 BP 126/68 10/02/18 10:00 Pulse Ox 98 10/02/18 10:00 Intake & Output 10/01/18 10/02/18 10/02/18 18:59 06:59 18:59 Intake Total 995.049 934.827 485.597 Output Total 1065 1630 90 Balance -69.951 -695.173 395.597 Weight 78 kg 78 kg Intake: IV 900 900 275 cefTRIAXone 1 gm In 50 Sodium Chloride 0.9% 50 ml @ 100 mls/hr IVPB Q24HR [facility] Rx#:[id number] dextrose 5% 900 900 225 Intake, IV Titration 95.049 34.827 90.597 Amount Propofol 1,000 mg In 95.049 34.827 90.597 Empty Bag 1 bag @ Titrate IV .Q0M A[facility] Rx#: [id number] Oral 120 Output: Urine 665 930 90 Stool 400 700 Other: Voiding Method Indwelling Catheter Indwelling Catheter Indwelling Catheter - Exam General appearance: The patient is unresponsive intubated HEENT: Head is normocephalic and atraumatic. Pupils are equal and reactive. The nares are patent. Oropharynx is clear without lesions. Orogastric tube without bleeding. Neck: Supple without lymphadenopathy. Trachea midline. Heart: S1 S2. Regular rate and rhythm. Lungs: No crackles or wheezes are heard. Abdomen: Soft, nontender, nondistended with good bowel sounds. No peritoneal signs. No palpable organomegaly or masses. Extremities: Normal skin color and turgor. No cyanosis, rash, ulceration, clubbing, or edema. Radial and pedal pulses are 2/4 bilaterally. Lim clear kylee urine. Fecal management system green dark black stool. Neurological: Cannot be assessed at this time since the patient is intubated and sedated. - Labs CBC & Chem 7: 10/02/18 05:58 10/02/18 05:58 Labs: Abnormal Lab Results - Last 24 Hours (Table) 10/01/18 10/01/18 10/01/18 Range/Units 11:47 16:45 18:22 RBC 2.33 L 2.30 L (4.30-5.90) m/uL Hgb 8.0 L 7.6 L (13.0-17.5) gm/dL Hct 23.7 L 23.6 L (39.0-53.0) % MCV 101.7 H 102.5 H (80.0-100.0) fL RDW 18.0 H 17.8 H (11.5-15.5) % Plt Count 134 L 137 L (150-450) k/uL ABG pO2 (83-108) mmHg ABG HCO3 (21-25) mmol/L ABG O2 Saturation (94-97) % Sodium (137-145) mmol/L Potassium (3.5-5.1) mmol/L Chloride (98-107) mmol/L Carbon Dioxide (22-30) mmol/L BUN (9-20) mg/dL Glucose (74-99) mg/dL POC Glucose (mg/dL) 139 H (75-99) mg/dL Calcium (8.4-10.2) mg/dL ALT (21-72) U/L Total Protein (6.3-8.2) g/dL Albumin (3.5-5.0) g/dL 10/01/18 10/02/18 10/02/18 Range/Units 23:34 00:15 04:57 RBC 2.31 L (4.30-5.90) m/uL Hgb 7.7 L (13.0-17.5) gm/dL Hct 23.8 L (39.0-53.0) % MCV 103.2 H (80.0-100.0) fL RDW 17.0 H (11.5-15.5) % Plt Count 148 L (150-450) k/uL ABG pO2 63 L (83-108) mmHg ABG HCO3 20 L (21-25) mmol/L ABG O2 Saturation 91.3 L (94-97) % Sodium (137-145) mmol/L Potassium (3.5-5.1) mmol/L Chloride (98-107) mmol/L Carbon Dioxide (22-30) mmol/L BUN (9-20) mg/dL Glucose (74-99) mg/dL POC Glucose (mg/dL) 132 H (75-99) mg/dL Calcium (8.4-10.2) mg/dL ALT (21-72) U/L Total Protein (6.3-8.2) g/dL Albumin (3.5-5.0) g/dL 10/02/18 10/02/18 10/02/18 Range/Units 05:49 05:58 05:58 RBC 2.21 L (4.30-5.90) m/uL Hgb 7.3 L (13.0-17.5) gm/dL Hct 23.1 L (39.0-53.0) % MCV 104.3 H (80.0-100.0) fL RDW 17.5 H (11.5-15.5) % Plt Count 125 L (150-450) k/uL ABG pO2 (83-108) mmHg ABG HCO3 (21-25) mmol/L ABG O2 Saturation (94-97) % Sodium 147 H (137-145) mmol/L Potassium 3.3 L (3.5-5.1) mmol/L Chloride 124 H (98-107) mmol/L Carbon Dioxide 18 L (22-30) mmol/L BUN 28 H (9-20) mg/dL Glucose 113 H (74-99) mg/dL POC Glucose (mg/dL) 118 H (75-99) mg/dL Calcium 7.3 L (8.4-10.2) mg/dL ALT 20 L (21-72) U/L Total Protein 4.8 L (6.3-8.2) g/dL Albumin 1.8 L (3.5-5.0) g/dL Microbiology - Last 24 Hours (Table) 10/01/18 11:50 Gram Stain - Preliminary Sputum Sputum Culture - Preliminary 09/29/18 18:09 Blood Culture - Preliminary Blood No Growth after 48 hours 09/29/18 22:15 Urine Culture - Final Urine,Catheterized Assessment and Plan (1) GI hemorrhage Current Visit: Yes Status: Acute Code(s): K92.2 - GASTROINTESTINAL HEMORRHAGE, UNSPECIFIED SNOMED Code(s): 14015726 (2) Duodenal ulcer Current Visit: Yes Status: Acute Code(s): K26.9 - DUODENAL ULCER, UNSP ACUTE OR CHRONIC, W/O HEMOR OR PERF SNOMED Code(s): 67089947 (3) Acute blood loss anemia Current Visit: Yes Status: Acute Code(s): D62 - ACUTE POSTHEMORRHAGIC ANEMIA SNOMED Code(s): 972531464 (4) H/O ETOH abuse Current Visit: Yes Status: Acute Code(s): F10.11 - ALCOHOL ABUSE, IN REMISSION SNOMED Code(s): 516814386 (5) Hepatic encephalopathy Current Visit: Yes Status: Acute Code(s): K72.90 - HEPATIC FAILURE, UNSPECIFIED WITHOUT COMA SNOMED Code(s): 80613292 (6) Endotracheally intubated Current Visit: Yes Status: Acute Code(s): Z97.8 - PRESENCE OF OTHER SPECIFIED DEVICES SNOMED Code(s): 544622596 Plan: 1. Nothing by mouth. Hold off on enteral feeds until CBC can be reviewed this afternoon. If CBC is stable May start trickle feeds. Protonix 40 mg twice d aily. CBC monitoring. Ammonia in a.m. Extubation per safety assistant. Lactulose 20 g daily. We'll continue to follow. Assessment and plan a care discussed with Dr. Liriano
[2018-10-02] MEDS: LORazepam 2 MG/ML INJ IV PRN (11:14)
[2018-10-02 11:45] LABS: Anisocytosis Slight; HCT 24.1 % (39.0-53.0); HGB 7.7 gm/dL (13.0-17.5); Hypochromasia Moderate; MCH 33.7 pg (25.0-35.0); MCHC 32.1 g/dL (31.0-37.0); MCV 105.1 fL (80.0-100.0); Macrocytosis Moderate; Mean Platelet Volume 7.8; Platelet Count 122 k/uL (150-450); Poikilocytosis Slight; RBC 2.29 m/uL (4.30-5.90); RDW 17.4 % (11.5-15.5); WBC 5.8 k/uL (3.8-10.6)
[2018-10-02 12:00] LABS: Magnesium 2.5 mg/dL (1.6-2.3); Phosphorus 2.1 mg/dL (2.5-4.5); Potassium 3.5 mmol/L (3.5-5.1)
[2018-10-02 12:11] LABS: INR 1.4 (<1.2); Prothrombin Time 14.2 sec (9.0-12.0)
[2018-10-02 12:25] LABS: Glucose,Whole Blood 138 mg/dL (75-99)
[2018-10-02] MEDS ORDERED: POTASSIUM BICARBONATE/CIT AC 20 MEQ TABLET.EFF NG-TUBE SCH (13:00)
[2018-10-02] MEDS ORDERED: POTASSIUM PHOSPHATE 10 MMOL in SODIUM CHLORIDE 0.9% 100 ML IV ONE (13:00)
[2018-10-02] MEDS ORDERED: MVI, ADULT NO.4 WITH VIT K 10 ML, TRACE (CONC-1ML/DOSE) 1 ML in AMINO ACID 5%-D15W+LYTE... IV ONE ×3 (13:30)
[2018-10-02] MEDS ORDERED: LIDOCAINE 1% INJ 10MG/ML (20 ML MDV) SQ ONE (13:33)
--- NOTE | 2018-10-02 14:13 | XR ---
EXAMINATION TYPE: XR chest 1V confirm line [facility] DATE OF EXAM: 10/02/2018 COMPARISON: Prior chest x-ray same dated earlier time HISTORY: Status post PICC line placement TECHNIQUE: Single frontal view of the chest is obtained. FINDINGS: Left-sided PICC line shows the distal tip near the cavoatrial junction level. There is no pneumothorax. No evident significant interval change. IMPRESSION: No evident complication status post PICC line placement
[2018-10-02 14:15] LABS: Glucose,Whole Blood 119 mg/dL (75-99)
[2018-10-02] MEDS: HYDROmorphone 1 MG/ML 1 ML SYRINGE IVP PRN (14:45)
--- NOTE | 2018-10-02 16:09 | IR ---
EXAMINATION TYPE: IR cvc insert >=5 years DATE OF EXAM: 10/02/2018 COMPARISON: NONE HISTORY: Needs long-term intravenous access for antibiotics FINDINGS: Maximal barrier technique was utilized. The skin overlying the left brachial vein was loca lized with ultrasound and noted to be compressible and patent by ultrasound. An ultrasound image was obtained and submitted on patient's chart. Sterile technique utilized with the ultrasound machine. T he skin overlying was prepped and draped and Lidocaine used for local anesthesia. A skin elise was ma de with a scalpel. Access was gained to the vein under direct ultrasound guidance with a 21-gauge ne edle and a 0.018 inch wire was advanced. Access site was dilated with a peel-away sheath and the cat heter tailored to length. Catheter advanced centrally and a post procedure chest x-ray verified plac ement following manipulation of the catheter with the tip at the cavoatrial junction. Catheter was f ixed to the skin and a sterile dressing placed. Hemostasis achieved and the catheter was aspirated a nd flushed with sterile saline. The patient remained in stable condition. IMPRESSION: STATUS POST ULTRASOUND GUIDED PICC LINE PLACEMENT, READY FOR USE. THIS PROCEDURE WAS PER FORMED BY THE UNDERSIGNED.
--- NOTE | 2018-10-02 18:11 | PN ---
PROGRESS NOTE DATE OF SERVICE: 10/02/2018. REASON FOR FOLLOWUP: Possible aspiration pneumonitis. INTERVAL HISTORY: The patient is currently afebrile. The patient is hemodynamically stable. The patient remains to be sedated on the vent. FiO2 is stable. No diarrhea or any changes in clinical condition reported by the nursing staff. PHYSICAL EXAMINATION: Blood pressure is 120/60 with a pulse of 77. Temperature 97.5. He is 98% on 30% FiO2. General description is a middle-aged male lying in bed in no distress. Respiratory system: Unlabored breathing with decreased breath sounds at the bases. HEART: S1, S2. Regular rate and rhythm. Abdomen soft, no tenderness. LABS: Hemoglobin 7.7, white count 5.8. BUN of 28, creatinine 0.75. Sputum culture currently pending. Blood culture remains to be negative. DIAGNOSTIC IMPRESSION AND PLAN: Patient admitted to the hospital with acute gastrointestinal bleed status post EGD with evidence of ulcer, and concern for possible aspiration pneumonitis. Currently covered with Rocephin and Flagyl to continue while waiting for the sputum culture to finalize. Continue supportive care. MMODL / IJN: [id number] /
[2018-10-02 18:14] LABS: Anisocytosis Slight; HCT 21.1 % (39.0-53.0); Hypochromasia Moderate; MCH 34.6 pg (25.0-35.0); MCHC 33.1 g/dL (31.0-37.0); MCV 104.3 fL (80.0-100.0); Macrocytosis Moderate; Platelet Count 112 k/uL (150-450); Poikilocytosis Slight; RBC 2.02 m/uL (4.30-5.90); RDW 17.4 % (11.5-15.5); WBC 4.5 k/uL (3.8-10.6)
[2018-10-02 18:25] LABS: Glucose,Whole Blood 139 mg/dL (75-99)
[2018-10-02 23:45] LABS: Glucose,Whole Blood 132 mg/dL (75-99)
--- NOTE | 2018-10-03 00:10 | P.PN ---
Subjective Progress Note Date: 10/02/18 Principal diagnosis: GI bleed Duodenal ulcer SHEENT is a 62-year-old male who presented to the ER today with 1 day history of for large bloody bowel movements.this was associated with nausea and vomiting, he vomited some dark-looking material. Status post EGD and showed duodenal ulcer. 10/02/2018 Patient is currently is in the intensive care unit. Mechanical ventilator. AC 400 with FiO2 30% and PEEP of 5. Hemoglobin is 7.6 morning. Fecal collecting system showing some darker stool. NG tube suction showing minimal fluid. Chest x-ray showed no acute pulmonary process. Sodium is 147. Cultures showed no growth so far. Patient is being continued on D5 water. Currently on antibiotics in the form ceftriaxone and Flagyl. Pulmonary, ID and GI is following. Current medications reviewed. Objective - Vital Signs Vital signs: Vital Signs Temp 97.7 F 10/02/18 08:00 Pulse 85 10/02/18 10:00 Resp 26 H 10/02/18 10:00 BP 126/68 10/02/18 10:00 Pulse Ox 98 10/02/18 10:00 Intake & Output 10/01/18 10/02/18 10/02/18 18:59 06:59 18:59 Intake Total 995.049 934.827 485.597 Output Total 1065 1630 90 Balance -69.951 -695.173 395.597 Weight 78 kg 78 kg Intake: IV 900 900 275 cefTRIAXone 1 gm In 50 Sodium Chloride 0.9% 50 ml @ 100 mls/hr IVPB Q24HR [facility] Rx#:[id number] dextrose 5% 900 900 225 Intake, IV Titration 95.049 34.827 90.597 Amount Propofol 1,000 mg In 95.049 34.827 90.597 Empty Bag 1 bag @ Titrate IV .Q0M [facility] Rx#: [id number] Oral 120 Output: Urine 665 930 90 Stool 400 700 Other: Voiding Method Indwelling Catheter Indwelling Catheter Indwelling Catheter - Exam General appearance: The patient is sedated and intubated HEENT: Head is normocephalic and atraumatic. Pupils are equal and reactive. The nares are patent. Oropharynx is clear without lesions. Orogastric tube without bleeding. Neck: Supple without lymphadenopathy. Trachea midline. Heart: S1 S2. Regular rate and rhythm. Lungs: No crackles or wheezes are heard. Abdomen: Soft, nontender, nondistended with good bowel sounds. No peritoneal signs. No palpable organomegaly or masses. Extremities: Normal skin color and turgor. No cyanosis, rash, ulceration, clubbing, or edema. Pulses palpable bilaterally. Lim clear kylee urine. Fecal management system green dark black stool. Neurological: Cannot be assessed at this time since the patient is intubated and sedated. - Labs CBC & Chem 7: 10/02/18 18:03 10/02/18 18:03 Labs: Abnormal Lab Results - Last 24 Hours (Table) 10/01/18 10/01/18 10/01/18 Range/Units 11:47 16:45 18:22 RBC 2.33 L 2.30 L (4.30-5.90) m/uL Hgb 8.0 L 7.6 L (13.0-17.5) gm/dL Hct 23.7 L 23.6 L (39.0-53.0) % MCV 101.7 H 102.5 H (80.0-100.0) fL RDW 18.0 H 17.8 H (11.5-15.5) % Plt Count 134 L 137 L (150-450) k/uL ABG pO2 (83-108) mmHg ABG HCO3 (21-25) mmol/L ABG O2 Saturation (94-97) % Sodium (137-145) mmol/L Potassium (3.5-5.1) mmol/L Chloride (98-107) mmol/L Carbon Dioxide (22-30) mmol/L BUN (9-20) mg/dL Glucose (74-99) mg/dL POC Glucose (mg/dL) 139 H (75-99) mg/dL Calcium (8.4-10.2) mg/dL ALT (21-72) U/L Total Protein (6.3-8.2) g/dL Albumin (3.5-5.0) g/dL 10/01/18 10/02/18 10/02/18 Range/Units 23:34 00:15 04:57 RBC 2.31 L (4.30-5.90) m/uL Hgb 7.7 L (13.0-17.5) gm/dL Hct 23.8 L (39.0-53.0) % MCV 103.2 H (80.0-100.0) fL RDW 17.0 H (11.5-15.5) % Plt Count 148 L (150-450) k/uL ABG pO2 63 L (83-108) mmHg ABG HCO3 20 L (21-25) mmol/L ABG O2 Saturation 91.3 L (94-97) % Sodium (137-145) mmol/L Potassium (3.5-5.1) mmol/L Chloride (98-107) mmol/L Carbon Dioxide (22-30) mmol/L BUN (9-20) mg/dL Glucose (74-99) mg/dL POC Glucose (mg/dL) 132 H (75-99) mg/dL Calcium (8.4-10.2) mg/dL ALT (21-72) U/L Total Protein (6.3-8.2) g/dL Albumin (3.5-5.0) g/dL 10/02/18 10/02/18 10/02/18 Range/Units 05:49 05:58 05:58 RBC 2.21 L (4.30-5.90) m/uL Hgb 7.3 L (13.0-17.5) gm/dL Hct 23.1 L (39.0-53.0) % MCV 104.3 H (80.0-100.0) fL RDW 17.5 H (11.5-15.5) % Plt Count 125 L (150-450) k/uL ABG pO2 (83-108) mmHg ABG HCO3 (21-25) mmol/L ABG O2 Saturation (94-97) % Sodium 147 H (137-145) mmol/L Potassium 3.3 L (3.5-5.1) mmol/L Chloride 124 H (98-107) mmol/L Carbon Dioxide 18 L (22-30) mmol/L BUN 28 H (9-20) mg/dL Glucose 113 H (74-99) mg/dL POC Glucose (mg/dL) 118 H (75-99) mg/dL Calcium 7.3 L (8.4-10.2) mg/dL ALT 20 L (21-72) U/L Total Protein 4.8 L (6.3-8.2) g/dL Albumin 1.8 L (3.5-5.0) g/dL Microbiology - Last 24 Hours (Table) 10/01/18 11:50 Gram Stain - Preliminary Sputum Sputum Culture - Preliminary 09/29/18 18:09 Blood Culture - Preliminary Blood No Growth after 48 hours 09/29/18 22:15 Urine Culture - Final Urine,Catheterized Assessment and Plan Assessment: Upper gastrointestinal bleed with duodenal ulcer Anemia secondary to acute GI bleed Acute blood loss anemia Possible aspiration pneumonia Altered mental status metabolic encephalopathy related to hepatic encephalopathy elevated ammonia level history of alcohol abuse Gallbladder mass was attempting to have patient have consult with Dr. Teresa in [facility] Leukocytosis History of COPD GERD Plan Patient is on mechanical ventilator. Pulmonary is on board. Hemoglobin is 7.3 today. Follow-up H&H. GI is on board. On antibiotics for possible aspiration pneumonia Long-term patient needs to see Dr. Teresa in [facility] for gallbladder mass. Further recommendations based on the clinical course. Prognosis is guarded. Time with Patient: Greater than 30
[2018-10-03] MEDS: metroNIDAZOLE-NS PMX 500 MG in SALINE 1 100ML.BAG IVPB SCH ×3 (00:15→16:55)
[2018-10-03 00:49] LABS: Anisocytosis Slight; HCT 21.4 % (39.0-53.0); Hypochromasia Moderate; MCH 34.3 pg (25.0-35.0); MCHC 32.6 g/dL (31.0-37.0); MCV 105.2 fL (80.0-100.0); Macrocytosis Moderate; Mean Platelet Volume 8.2; Platelet Count 112 k/uL (150-450); Poikilocytosis Slight; RBC 2.03 m/uL (4.30-5.90); RDW 17.1 % (11.5-15.5); WBC 4.7 k/uL (3.8-10.6)
[2018-10-03] MEDS: IPRATROPIUM-ALBUTEROL 3 ML NEB INHALATION SCH ×7 (00:50→23:36)
[2018-10-03] MEDS: POTASSIUM BICARBONATE/CIT AC 20 MEQ TABLET.EFF NG-TUBE SCH ×2 (01:19→02:21)
[2018-10-03] MEDS: HYDROmorphone 1 MG/ML 1 ML SYRINGE IVP PRN (02:25)
[2018-10-03 04:05] LABS: ALT 22 U/L (21-72); AST 28 U/L (17-59); African American GFR (CKD) >90 (>60 ml/min/1.73 sqM); Albumin 1.7 g/dL (3.5-5.0); Alkaline Phosphatase 81 U/L (38-126); Anion Gap 2 mmol/L; Anisocytosis Slight; Blood Urea Nitrogen 23 mg/dL (9-20); Calcium 7.3 mg/dL (8.4-10.2); Carbon Dioxide 22 mmol/L (22-30); Chloride 116 mmol/L (98-107); Glucose 113 mg/dL (74-99); HCT 22.1 % (39.0-53.0); Hypochromasia Moderate; MCH 32.2 pg (25.0-35.0); MCHC 30.7 g/dL (31.0-37.0); Macrocytosis Moderate; Magnesium 2.2 mg/dL (1.6-2.3); Mean Platelet Volume 7.6; Platelet Count 125 k/uL (150-450); Poikilocytosis Slight; Potassium 4.1 mmol/L (3.5-5.1); RBC 2.11 m/uL (4.30-5.90); RDW 16.5 % (11.5-15.5); Sodium 140 mmol/L (137-145); Total Protein 4.5 g/dL (6.3-8.2)
[2018-10-03 04:22] LABS: HGB 6.8 gm/dL (13.0-17.5)
[2018-10-03 05:27] LABS: ABG Base Excess -0.2 mmol/L; ABG HCO3 24 mmol/L (21-25); ABG Oxygen Saturation 98.4 % (94-97); ABG PCO2 34 mmHg (35-45); ABG PH 7.45 (7.35-7.45); ABG PO2 94 mmHg (83-108); ABG TCO2 25 mmol/L (19-24); Allen Test Performed? Yes
[2018-10-03] MEDS: PROPOFOL 1,000 MG in EMPTY BAG 1 BAG IV SCH ×3 (06:07→20:51)
[2018-10-03 06:56] LABS: Glucose,Whole Blood 120 mg/dL (75-99)
--- NOTE | 2018-10-03 08:27 | XR ---
EXAMINATION TYPE: XR chest 1V portable DATE OF EXAM: 10/03/2018 Comparison: 10/02/2018 Clinical History: 62-year-old male Tube placement Findings: ET and NG tubes are satisfactory. Left PICC tip at the lower SVC. Heart normal size. Aorta within nor mal limits. Hyperinflation. Some strandy atelectasis in the lower lungs. No montez consolidation or pl eural effusion. Right apical pleural-parenchymal scarring. Impression: Stable changes of COPD without acute process seen.
[2018-10-03] MEDS: PANTOPRAZOLE 40 MG/10 ML VIAL IV SCH ×2 (09:47→20:51)
[2018-10-03] MEDS: LACTULOSE 20 GM/30 ML CUP PO SCH (09:47)
[2018-10-03] MEDS: CHLORHEXIDINE GLUCONATE 15 ML CUP MUCOUS MEM SCH ×2 (09:47→20:51)
[2018-10-03] MEDS: THIAMINE 100 MG TAB PO SCH ×2 (09:57→18:30)
--- NOTE | 2018-10-03 10:35 | P.PN ---
Subjective Progress Note Date: 10/03/18 Principal diagnosis: Acute GI bleeding this is a 62-year-old white male who presented to the ER today with 1 day history of for large bloody bowel movements.this was associated with nausea and vomiting, he vomited some dark-looking material. Denied any hematemesis. Denied any melena. Apparently the patient was recently at [facility] for abdominal pain, exact workup is not clear at the time of this dictation, but he was discharged out of [facility] about 2 days ago. Since discharge, the patient has been feeling rundown and fatigued.on admission his initial hemoglobin was 8.8, since then patient had further episodes of bright red blood per rectum and bloody bowel movements, follow-up hemoglobin is 7.3, patient will be receiving blood transfusion, and arrangements were made for the patient to be admitted to the ICU.the patient himself is a very poor historian, apparently when he arrived he was extremely agitated, he is known to have history of alcohol abuse, hence he was given Ativan and he was placed on the C1wa protocol.during my evaluation, the patient was noted to be sedated, calm, cannot give much history, quite lethargic, arousable but easily gets agitated. Apparently his ammonia level was high, hence I recommended nasogastric tube to be placed and to start lactulose. As the patient may have obviously hepatic encephalopathy.lactic acid on admi ssion was 4.3, hence fluid boluses were given. Patient is not requiring any pressors, and he seems to be hemodynamically stable at this point.patient is also known to have history of COPD, mild clubbing noted on physical examination, hence he was placed on DuoNeb updrafts 4 times a day and when necessary. Patient was also placed on Rocephin for his presentation of hepatic encephalopathy and hyperammonemia. On 09/30/2018 patient seen in follow-up in the intensive care unit. Patient is on mechanical ventilator, sedated, and ventilating's are assist-control mode of ventilation with a rate of 12, tidal and 400, FiO2 of 40% and PEEP of 5, this morning his blood gases showed pO2 of 133, pCO2 33, and pH of 7.39, this was done on FiO2 of 50%, FiO2 had since been dropped down to 40%. IVs include 0.9 normal saline at a rate of 75 ML per hour, Diprivan and is at 50 mics per kilo per minute. Patient received 2 units of packed red blood cells for hemoglobin of 7.3, this morning hemoglobin is 8.4, with blood cell count is 10.7, platelet count is 159, and sodium is 142, potassium is 4.5, chloride is 118, CO2 17, BUN is 44, creatinine 0.87, urinalysis was clear, no signs of infection, drug screen was positive for opiates and benzodiazepines. Patient has been afebrile, was dynamically stable, his chest x-ray has been reviewed, showing COPD and newly developing infiltrate in the right upper lobe. Antibiotic coverage in the form of Rocephin. Blood cultures are pending, sputum culture will be sent. he is receiving lactulose per OG tube, and ammonia level is down to 64 on today's labs . We'll catheter is in, and patient is nonoliguric. Lung sounds are clear. On 10/01/2018 patient seen in follow-up in the intensive care unit, he remains sedated, and intubated, on mechanical ventilator. Yesterday patient underwent EGD, and was found to have a duodenal ulcer, which could not be clipped related to its location. Was injected with epinephrine. Today's labs have been reviewed, showing white blood cell count of 7.7, hemoglobin is 7.4, serum sodium is 142, potassium 3.9, chloride is 120, CO2 is 18, B1 is 36, creatinine 0.84. She received 2 units of packed red blood cells this admission. FMS system is in place, draining liquid melanotic stool. Hemodynamic patient is stable, heart rate is controlled. Lung sounds are clear, patient's comfortable on the ventilator, currently on assist control mode of ventilation with a rate of 12, tidal volume 400, FiO2 of 40%, and PEEP of 5, this morning his blood gases were reviewed, showing pO2 of 132, pCO2 of 31, pH of 7.40, and FiO2 was dropped down to 30%. Currently on IVs including 0.9 normal saline at 75 ML per hour, propof ol is at 50 mics per kilo per minute. No tube feedings right now. We'll proceed with sedation holiday today, to assess mentation, and likely proceed with weaning trials, with pressure support of 5, and CPAP of 5. Chest x-ray has been reviewed, showing chronic changes, without acute pulmonary disease. On 10/02/2018 patient seen in follow-up in the intensive care unit. Patient has been off sedation since this morning, but remains very sedated. Intubated on mechanical ventilator, on assist control mode of ventilation with a rate of 12, tidal vital 400, FiO2 30% and PEEP of 5. This morning blood gases were reviewed, showing a pO2 of 64, pCO2 46, and pH of 7.36. Chest x-ray this morning showed no acute pulmonary process, lungs are clear, ET-tube and a NG- tube in the appropriate positions. No acute events overnight, yesterday patient was given sedation holiday, however he never did fully wake up and follow commands, and in the evening became quite tachypneic and was placed back on s edation. IV 0.9 normal saline at a rate of 75 ML per hour, no other drips, this morning's blood work has been reviewed, showing white blood cell count is 6.9, hemoglobin of 7.3, the patient has a fecal management system in place, and he is putting out liquid melanotic stool. Receiving lactulose, he did produce 1100 mL of liquid stool in the last 24 hours. He is developing fluid volume contraction alkalosis and hypernatremia. He has been nothing by mouth, no nutrition since admission. We will inquire with GI service whether tube feedings can be started. Lung sounds are clear. Microbiology data has been reviewed, showing blood, urine and sputum cultures are no growth so far, final cultures are pending. Better coverage in the form of Rocephin and Flagyl. On 10/03/2018 patient seen in follow-up in the intensive care unit, he remains sedated, intubated on mechanical ventilator, current vent settings are assist- control mode of ventilation with a rate of 12, tidal 400, FiO2 of 30% and PEEP of 5. This morning his blood gases showed pO2 of 94, pCO2 34, pH of 7.45. IV fluids D5W at a rate of 75 ML per hour, TPN is a 30 ML per hour, and propofol is at 30 mics per kilo per minute. This morning's lab work has been reviewed, showing white blood cell count of 5.0, hemoglobin of 6.8, patient was given a unit of blood, sodium is 140, potassium is 4.1, chloride is 116, CO2 is 22, BUN is 23, creatinine is 0.59. Ammonia level is down to 28, yesterday we decreased the lactulose to once daily, she patient was given a daily traction of sedation, did not become fully awake, or following commands, did become quite asynchronous and tachypneic, and had to be re-sedated. Today's chest x-ray has been reviewed, showing stable changes of COPD without acute process. Patient is afebrile, blood urine and sputum cultures are negative. Some liquid dark green output, with no visible blood in the stool. She remains on Rocephin and Flagyl for antibiotic coverage. TPN is at 30 ML per hour per GI service recommendations. Objective - Vital Signs Vital signs: Vital Signs Temp 97.7 F 10/03/18 09:00 Pulse 87 10/03/18 09:00 Resp 19 10/03/18 09:00 BP 106/56 10/03/18 09:00 Pulse Ox 97 10/03/18 09:00 Intake & Output 10/02/18 10/03/18 10/03/18 18:59 06:59 18:59 Intake Total 4672.862 3533.545 850 Output Total 420 385 155 Balance 992.173 679.545 695 Weight 78 kg 81.7 kg Intake: IV 1050 900 540 Dextrose 5% in Water 1, 225 000 ml @ 75 mls/hr IV . [id number] [facility] Rx#:[id number] Mvi, Adult No.4 with Vit 90 K 10 ml Trace (Conc-1Ml/ Dose) 1 ml In Amino Acid 5%-D15w+Lytes*E* 1,000 ml @ 30 mls/hr IV .Q24H [facility] Rx#:[id number] cefTRIAXone 1 gm In 50 50 Sodium Chloride 0.9% 50 ml @ 100 mls/hr IVPB Q24HR [facility] Rx#:[id number] dextrose 5% 900 900 75 metroNIDAZOLE-NS PMX 500 100 100 mg In Saline 1 100ml.bag @ 100 mls/hr IVPB Q8HR [facility] Rx#:[id number] Intake, IV Titration 182.173 164.545 Amount Propofol 1,000 mg In 182.173 164.545 Empty Bag 1 bag @ Titrate IV .Q0M [facility] Rx#: [id number] Oral 180 Blood Product 0 310 Rc As-1 Unit 0 310 [id number] Output: Urine 420 385 155 Other: Voiding Method Indwelling Catheter Indwelling Catheter - Exam GENERAL EXAM: Sedated, 62-year-old white male, intubated comfortable in no apparent distress. HEAD: Normocephalic/atraumatic. EYES: Normal reaction of pupils, equal size. Conjunctiva pink, sclera white. NOSE: Clear with pink turbinates. THROAT: No erythema or exudates. NECK: No masses, no JVD, no thyroid enlargement, no adenopathy. CHEST: No chest wall deformity. Symmetrical expansion. LUNGS: Equal air entry with no crackles, wheeze, rhonchi or dullness. CVS: Regular rate and rhythm, normal S1 and S2, no gallops, no murmurs, no rubs ABDOMEN: Soft, nontender. No hepatosplenomegaly, normal bowel sounds, no guarding or rigidity. EXTREMITIES: No clubbing, no edema, no cyanosis, 2+ pulses and upper and lower extremities. MUSCULOSKELETAL: Muscle strength and tone normal. SPINE: No scoliosis or deformity SKIN: No rashes CENTRAL NERVOUS SYSTEM: sedated No focal deficits, tone is normal in all 4 extremities. PSYCHIATRIC: Unable to assess, patient is sedated, intubated - Labs CBC & Chem 7: 10/03/18 03:31 10/03/18 03:31 Labs: Abnormal Lab Results - Last 24 Hours (Table) 10/02/18 10/02/18 10/02/18 Range/Units 11:10 11:10 11:10 RBC 2.29 L (4.30-5.90) m/uL Hgb 7.7 L (13.0-17.5) gm/dL Hct 24.1 L (39.0-53.0) % MCV 105.1 H (80.0-100.0) fL MCHC (31.0-37.0) g/dL RDW 17.4 H (11.5-15.5) % Plt Count 122 L (150-450) k/uL PT 14.2 H (9.0-12.0) sec INR 1.4 H (<1.2) ABG pCO2 (35-45) mmHg ABG Total CO2 (19-24) mmol/L ABG O2 Saturation (94-97) % Potassium (3.5-5.1) mmol/L Chloride (98-107) mmol/L BUN (9-20) mg/dL Creatinine (0.66-1.25) mg/dL Glucose (74-99) mg/dL POC Glucose (mg/dL) (75-99) mg/dL Calcium (8.4-10.2) mg/dL Phosphorus 2.1 L (2.5-4.5) mg/dL Magnesium 2.5 H (1.6-2.3) mg/dL Total Protein (6.3-8.2) g/dL Albumin (3.5-5.0) g/dL Crossmatch 10/02/18 10/02/18 10/02/18 Range/Units 12:13 13:54 18:03 RBC 2.02 L (4.30-5.90) m/uL Hgb 7.0 L (13.0-17.5) gm/dL Hct 21.1 L (39.0-53.0) % MCV 104.3 H (80.0-100.0) fL MCHC (31.0-37.0) g/dL RDW 17.4 H (11.5-15.5) % Plt Count 112 L (150-450) k/uL PT (9.0-12.0) sec INR (<1.2) ABG pCO2 (35-45) mmHg ABG Total CO2 (19-24) mmol/L ABG O2 Saturation (94-97) % Potassium (3.5-5.1) mmol/L Chloride (98-107) mmol/L BUN (9-20) mg/dL Creatinine (0.66-1.25) mg/dL Glucose (74-99) mg/dL POC Glucose (mg/dL) 138 H 119 H (75-99) mg/dL Calcium (8.4-10.2) mg/dL Phosphorus (2.5-4.5) mg/dL Magnesium (1.6-2.3) mg/dL Total Protein (6.3-8.2) g/dL Albumin (3.5-5.0) g/dL Crossmatch 10/02/18 10/02/18 10/02/18 Range/Units 18:03 18:13 23:33 RBC (4.30-5.90) m/uL Hgb (13.0-17.5) gm/dL Hct (39.0-53.0) % MCV (80.0-100.0) fL MCHC (31.0-37.0) g/dL RDW (11.5-15.5) % Plt Count (150-450) k/uL PT (9.0-12.0) sec INR (<1.2) ABG pCO2 (35-45) mmHg ABG Total CO2 (19-24) mmol/L ABG O2 Saturation (94-97) % Potassium 3.3 L (3.5-5.1) mmol/L Chloride (98-107) mmol/L BUN (9-20) mg/dL Creatinine (0.66-1.25) mg/dL Glucose (74-99) mg/dL POC Glucose (mg/dL) 139 H 132 H (75-99) mg/dL Calcium (8.4-10.2) mg/dL Phosphorus (2.5-4.5) mg/dL Magnesium (1.6-2.3) mg/dL Total Protein (6.3-8.2) g/dL Albumin (3.5-5.0) g/dL Crossmatch 10/03/18 10/03/18 10/03/18 Range/Units 00:01 03:31 03:31 RBC 2.03 L 2.11 L (4.30-5.90) m/uL Hgb 7.0 L 6.8 L* (13.0-17.5) gm/dL Hct 21.4 L 22.1 L (39.0-53.0) % MCV 105.2 H 105.0 H (80.0-100.0) fL MCHC 30.7 L (31.0-37.0) g/dL RDW 17.1 H 16.5 H (11.5-15.5) % Plt Count 112 L 125 L (150-450) k/uL PT (9.0-12.0) sec INR (<1.2) ABG pCO2 (35-45) mmHg ABG Total CO2 (19-24) mmol/L ABG O2 Saturation (94-97) % Potassium (3.5-5.1) mmol/L Chloride 116 H (98-107) mmol/L BUN 23 H (9-20) mg/dL Creatinine 0.59 L (0.66-1.25) mg/dL Glucose 113 H (74-99) mg/dL POC Glucose (mg/dL) (75-99) mg/dL Calcium 7.3 L (8.4-10.2) mg/dL Phosphorus (2.5-4.5) mg/dL Magnesium (1.6-2.3) mg/dL Total Protein 4.5 L (6.3-8.2) g/dL Albumin 1.7 L (3.5-5.0) g/dL Crossmatch 10/03/18 10/03/18 10/03/18 Range/Units 05:07 05:22 06:45 RBC (4.30-5.90) m/uL Hgb (13.0-17.5) gm/dL Hct (39.0-53.0) % MCV (80.0-100.0) fL MCHC (31.0-37.0) g/dL RDW (11.5-15.5) % Plt Count (150-450) k/uL PT (9.0-12.0) sec INR (<1.2) ABG pCO2 34 L (35-45) mmHg ABG Total CO2 25 H (19-24) mmol/L ABG O2 Saturation 98.4 H (94-97) % Potassium (3.5-5.1) mmol/L Chloride (98-107) mmol/L BUN (9-20) mg/dL Creatinine (0.66-1.25) mg/dL Glucose (74-99) mg/dL POC Glucose (mg/dL) 120 H (75-99) mg/dL Calcium (8.4-10.2) mg/dL Phosphorus (2.5-4.5) mg/dL Magnesium (1.6-2.3) mg/dL Total Protein (6.3-8.2) g/dL Albumin (3.5-5.0) g/dL Crossmatch See Detail Microbiology - Last 24 Hours (Table) 09/29/18 18:09 Blood Culture - Preliminary Blood No Growth after 72 hours Assessment and Plan Plan: Assessment: Acute GI bleeding in a patient with known history of alcoholism, differential diagnoses includes peptic ulcer disease, esophageal varices, erosive gastritis, and even possibly diverticular disease/diverticulosis. he underwent EGD on 09/30/2018 was found to have a duodenal ulcer which was injected with epinephrine, but could not be clipped Acute hepatic encephalopathy with significantly elevated ammonia level secondary to underlying alcohol related liver disease. Continues to improve, remains on lactulose, today's serum ammonia level was 28 on 10/03/2018 history of underlying COPD, patient is now on bronchodilators in the form of DuoNeb. Presently his COPD is inactive. Benign essential hypertension Degenerative joint disease History of alcohol abuse Volume contraction alkalosis Hyponatremia and hyperchloremia related to free water deficit and infusion of 0. 9 normal saline Plan: Proceed with daily interruption of sedation, discontinue lorazepam, but the patient recovered, we'll place the patient on spontaneous breathing trials with pressure support of 5, and CPAP of 5. Chest x-ray is clear, no acute pulmonary process. Hemodynamically stable, no fever or chills. Patient receiving nutrition in the form of TPN, no further GI bleeding, today's hemoglobin is 6.7, patient has received 1 unit of blood this morning. Continues on PPI therapy, continue same antibiotics, culture data of remains negative thus far. I performed a history & physical examination of the patient and discussed their management with my nurse practitioner, Irena Ortiz. I reviewed the nurse practitioner's note and agree with the documented findings and plan of care. L luz elena sounds are positive for clear breath sounds. The findings and the impression was discussed with the patient. I attest to the documentation by the nurse practitioner. Time with Patient: Greater than 30
[2018-10-03] MEDS: DEXTROSE 5% IN WATER 1,000 ML IV SCH (11:44)
[2018-10-03 12:05] LABS: Glucose,Whole Blood 120 mg/dL (75-99)
[2018-10-03 12:22] LABS: Anisocytosis Slight; HCT 25.4 % (39.0-53.0); Hypochromasia Slight; MCH 32.8 pg (25.0-35.0); MCHC 32.9 g/dL (31.0-37.0); Macrocytosis Slight; Mean Platelet Volume 7.9; Platelet Count 117 k/uL (150-450); Poikilocytosis Slight; RBC 2.54 m/uL (4.30-5.90); WBC 6.5 k/uL (3.8-10.6)
[2018-10-03 12:23] LABS: HGB 8.3 gm/dL (13.0-17.5)
[2018-10-03 12:24] LABS: MCV 99.7 fL (80.0-100.0)
--- NOTE | 2018-10-03 13:04 | P.PN ---
Subjective Progress Note Date: 10/03/18 Principal diagnosis: GI bleed duodenal ulcer Intubated. Fecal management system with mixed green dark stool. No gross hematochezia. No bloody output from OG. Hemoglobin 6.8 transfused 1 unit present hemoglobin 8.3. Objective - Vital Signs Vital signs: Vital Signs Temp 97.6 F 10/03/18 12:00 Pulse 78 10/03/18 12:00 Resp 17 10/03/18 12:00 BP 109/59 10/03/18 12:00 Pulse Ox 100 10/03/18 12:00 Intake & Output 10/02/18 10/03/18 10/03/18 18:59 06:59 18:59 Intake Total 1965.441 5670.545 1041.275 Output Total 420 385 210 Balance 992.173 679.545 831.275 Weight 78 kg 81.7 kg Intake: IV 1050 900 645 Dextrose 5% in Water 1, 300 000 ml @ 75 mls/hr IV . [id number] PENDING SALE TO [facility] Rx#:[id number] Mvi, Adult No.4 with Vit 120 K 10 ml Trace (Conc-1Ml/ Dose) 1 ml In Amino Acid 5%-D15w+Lytes*E* 1,000 ml @ 30 mls/hr IV .Q24H [facility] Rx#:[id number] cefTRIAXone 1 gm In 50 50 Sodium Chloride 0.9% 50 ml @ 100 mls/hr IVPB Q24HR [facility] Rx#:[id number] dextrose 5% 900 900 75 metroNIDAZOLE-NS PMX 500 100 100 mg In Saline 1 100ml.bag @ 100 mls/hr IVPB Q8HR PENDING SALE TO [facility] Rx#:[id number] Intake, IV Titration 182.173 164.545 86.275 Amount Propofol 1,000 mg In 182.173 164.545 86.275 Empty Bag 1 bag @ Titrate IV .Q0M [facility] Rx#: [id number] Oral 180 Blood Product 0 310 Rc As-1 Unit 0 310 [id number] Output: Urine 420 385 210 Other: Voiding Method Indwelling Catheter Indwelling Catheter Indwelling Catheter - Exam General appearance: The patient is unresponsive intubated HEENT: Head is normocephalic and atraumatic. Pupils are equal and reactive. The nares are patent. Oropharynx is clear without lesions. Orogastric tube without bleeding. Neck: Supple without lymphadenopathy. Trachea midline. Heart: S1 S2. Regular rate and rhythm. Lungs: No crackles or wheezes are heard. Abdomen: Soft, nontender, nondistended with good bowel sounds. No peritoneal signs. No palpable organomegaly or masses. Extremities: Normal skin color and turgor. No cyanosis, rash, ulceration, clubbing, or edema. Radial and pedal pulses are 2/4 bilaterally. Lim clear kylee urine. Fecal management system green dark black stool. Neurological: Cannot be assessed at this time since the patient is intubated and sedated. - Labs CBC & Chem 7: 10/03/18 12:10 10/03/18 03:31 Labs: Abnormal Lab Results - Last 24 Hours (Table) 10/02/18 10/02/18 10/02/18 Range/Units 13:54 18:03 18:03 RBC 2.02 L (4.30-5.90) m/uL Hgb 7.0 L (13.0-17.5) gm/dL Hct 21.1 L (39.0-53.0) % MCV 104.3 H (80.0-100.0) fL MCHC (31.0-37.0) g/dL RDW 17.4 H (11.5-15.5) % Plt Count 112 L (150-450) k/uL ABG pCO2 (35-45) mmHg ABG Total CO2 (19-24) mmol/L ABG O2 Saturation (94-97) % Potassium 3.3 L (3.5-5.1) mmol/L Chloride (98-107) mmol/L BUN (9-20) mg/dL Creatinine (0.66-1.25) mg/dL Glucose (74-99) mg/dL POC Glucose (mg/dL) 119 H (75-99) mg/dL Calcium (8.4-10.2) mg/dL Total Protein (6.3-8.2) g/dL Albumin (3.5-5.0) g/dL Crossmatch 10/02/18 10/02/18 10/03/18 Range/Units 18:13 23:33 00:01 RBC 2.03 L (4.30-5.90) m/uL Hgb 7.0 L (13.0-17.5) gm/dL Hct 21.4 L (39.0-53.0) % MCV 105.2 H (80.0-100.0) fL MCHC (31.0-37.0) g/dL RDW 17.1 H (11.5-15.5) % Plt Count 112 L (150-450) k/uL ABG pCO2 (35-45) mmHg ABG Total CO2 (19-24) mmol/L ABG O2 Saturation (94-97) % Potassium (3.5-5.1) mmol/L Chloride (98-107) mmol/L BUN (9-20) mg/dL Creatinine (0.66-1.25) mg/dL Glucose (74-99) mg/dL POC Glucose (mg/dL) 139 H 132 H (75-99) mg/dL Calcium (8.4-10.2) mg/dL Total Protein (6.3-8.2) g/dL Albumin (3.5-5.0) g/dL Crossmatch 10/03/18 10/03/18 10/03/18 Range/Units 03:31 03:31 05:07 RBC 2.11 L (4.30-5.90) m/uL Hgb 6.8 L* (13.0-17.5) gm/dL Hct 22.1 L (39.0-53.0) % MCV 105.0 H (80.0-100.0) fL MCHC 30.7 L (31.0-37.0) g/dL RDW 16.5 H (11.5-15.5) % Plt Count 125 L (150-450) k/uL ABG pCO2 (35-45) mmHg ABG Total CO2 (19-24) mmol/L ABG O2 Saturation (94-97) % Potassium (3.5-5.1) mmol/L Chloride 116 H (98-107) mmol/L BUN 23 H (9-20) mg/dL Creatinine 0.59 L (0.66-1.25) mg/dL Glucose 113 H (74-99) mg/dL POC Glucose (mg/dL) (75-99) mg/dL Calcium 7.3 L (8.4-10.2) mg/dL Total Protein 4.5 L (6.3-8.2) g/dL Albumin 1.7 L (3.5-5.0) g/dL Crossmatch See Detail 10/03/18 10/03/18 10/03/18 Range/Units 05:22 06:45 11:53 RBC (4.30-5.90) m/uL Hgb (13.0-17.5) gm/dL Hct (39.0-53.0) % MCV (80.0-100.0) fL MCHC (31.0-37.0) g/dL RDW (11.5-15.5) % Plt Count (150-450) k/uL ABG pCO2 34 L (35-45) mmHg ABG Total CO2 25 H (19-24) mmol/L ABG O2 Saturation 98.4 H (94-97) % Potassium (3.5-5.1) mmol/L Chloride (98-107) mmol/L BUN (9-20) mg/dL Creatinine (0.66-1.25) mg/dL Glucose (74-99) mg/dL POC Glucose (mg/dL) 120 H 120 H (75-99) mg/dL Calcium (8.4-10.2) mg/dL Total Protein (6.3-8.2) g/dL Albumin (3.5-5.0) g/dL Crossmatch 10/03/18 Range/Units 12:10 RBC 2.54 L (4.30-5.90) m/uL Hgb 8.3 L D (13.0-17.5) gm/dL Hct 25.4 L (39.0-53.0) % MCV (80.0-100.0) fL MCHC (31.0-37.0) g/dL RDW 18.0 H (11.5-15.5) % Plt Count 117 L (150-450) k/uL ABG pCO2 (35-45) mmHg ABG Total CO2 (19-24) mmol/L ABG O2 Saturation (94-97) % Potassium (3.5-5.1) mmol/L Chloride (98-107) mmol/L BUN (9-20) mg/dL Creatinine (0.66-1.25) mg/dL Glucose (74-99) mg/dL POC Glucose (mg/dL) (75-99) mg/dL Calcium (8.4-10.2) mg/dL Total Protein (6.3-8.2) g/dL Albumin (3.5-5.0) g/dL Crossmatch Microbiology - Last 24 Hours (Table) 10/01/18 11:50 Gram Stain - Final Sputum Sputum Culture - Final Lisa albicans 09/29/18 18:09 Blood Culture - Preliminary Blood No Growth after 72 hours Assessment and Plan (1) GI hemorrhage Current Visit: Yes Status: Acute Code(s): K92.2 - GASTROINTESTINAL HEMORRHAGE, UNSPECIFIED SNOMED Code(s): 54429788 (2) Duodenal ulcer Current Visit: Yes Status: Acute Code(s): K26.9 - DUODENAL ULCER, UNSP ACUTE OR CHRONIC, W/O HEMOR OR PERF SNOMED Code(s): 45088064 (3) Acute blood loss anemia Current Visit: Yes Status: Acute Code(s): D62 - ACUTE POSTHEMORRHAGIC ANEMIA SNOMED Code(s): 700045634 (4) H/O ETOH abuse Current Visit: Yes Status: Acute Code(s): F10.11 - ALCOHOL ABUSE, IN REMISSION SNOMED Code(s): 565471956 (5) Hepatic encephalopathy Current Visit: Yes Status: Acute Code(s): K72.90 - HEPATIC FAILURE, UNSPECIFIED WITHOUT COMA SNOMED Code(s): 70682327 (6) Endotracheally intubated Current Visit: Yes Status: Acute Code(s): Z97.8 - PRESENCE OF OTHER SPECIFI ED DEVICES SNOMED Code(s): 429964302 Plan: 1. Nothing by mouth. If CBC is stable May start trickle feeds. Protonix 40 mg twice daily. CBC monitoring. Ammonia 28. Extubation per strategic planning specialist. Lactulose 20 g daily. We'll continue to follow. Assessment and plan a care discussed with Dr. Liriano
[2018-10-03] MEDS: 1: MVI, ADULT NO.4 WITH VIT K 10 ML, TRACE (CONC-1ML/DOSE) 1 ML, POTASSIUM ACETATE 10 ME IV SCH ×4 (13:43)
--- NOTE | 2018-10-03 16:59 | CT ---
EXAMINATION TYPE: CT brain wo con DATE OF EXAM: 10/03/2018 COMPARISON: December 10, 2015 HISTORY: Weakness. Altered mental status CT DLP: mGycm Automated exposure control for dose reduction was used. FINDINGS: There is cerebral cortical atrophy. There is no mass effect nor midline shift. There is no sign of in tracranial hemorrhage. Calvarium is intact. IMPRESSION: CEREBRAL ATROPHY. NO ACUTE INTRACRANIAL ABNORMALITY. NO SIGNIFICANT CHANGE.
[2018-10-03 18:24] LABS: Glucose,Whole Blood 118 mg/dL (75-99)
--- NOTE | 2018-10-03 20:02 | PN ---
PROGRESS NOTE DATE OF SERVICE: 10/03/2018 REASON FOR FOLLOWUP: Possible aspiration pneumonitis. INTERVAL HISTORY: The patient is currently afebrile. The patient is hemodynamically stable, not on any pressor support. The patient's FiO2 is currently stable at 30%. No other changes in clinical condition reported by the nursing staff. PHYSICAL EXAMINATION: Blood pressure is 129/62 with a pulse of 80, temperature 98. He is 98% on 30% FiO2. General description is a middle-aged male lying in bed in no distress. RESPIRATORY SYSTEM: Unlabored breathing. Clear to auscultation anteriorly. HEART: S1, S2. Regular rate and rhythm. ABDOMEN: Soft. No tenderness. EXTREMITIES: No edema of the feet. LABS: Hemoglobin 8.3, white count 6.5. BUN of 23, creatinine 0.59. Sputum with Lisa albicans. Blood culture negative so far. DIAGNOSTIC IMPRESSION AND PLAN: Patient with acute respiratory failure which is likely multifactorial with a possible component of aspiration pneumonitis. The patient is currently covered with Rocephin and Flagyl; to continue while monitoring his clinical course closely. Continue with supportive care. MMODL / IJN: [id number] /
[2018-10-04] MEDS: metroNIDAZOLE-NS PMX 500 MG in SALINE 1 100ML.BAG IVPB SCH ×2 (00:21→08:17)
[2018-10-04 00:35] LABS: Glucose,Whole Blood 131 mg/dL (75-99)
--- NOTE | 2018-10-04 01:50 | P.PN ---
Subjective Progress Note Date: 10/03/18 Principal diagnosis: GI bleed Duodenal ulcer JAG is a 62-year-old male who presented to the ER today with 1 day history of for large bloody bowel movements.this was associated with nausea and vomiting, he vomited some dark-looking material. Status post EGD and showed duodenal ulcer. 10/02/2018 Patient is currently is in the intensive care unit. Mechanical ventilator. AC 400 with FiO2 30% and PEEP of 5. Hemoglobin is 7.6 morning. Fecal collecting system showing some darker stool. NG tube suction showing minimal fluid. Chest x-ray showed no acute pulmonary process. Sodium is 147. Cultures showed no growth so far. Patient is being continued on D5 water. Currently on antibiotics in the form ceftriaxone and Flagyl. Pulmonary, ID and GI is following. 10.03 Patient is currently on mechanical ventilator. No fever no chills. Cultures have been negative. Hemoglobin came down to 6.8 today. 1 unit of PRBC was ordered. Patient is being continued on IV fluids and empiric antibiotics. Chest x-ray showed stable findings of COPD. Fecal collecting system showing green colored stool. No evidence of blood noted. Patient is on currently TPN. Renal function is stable. Pulmonary and GI is following. Current medications reviewed. Objective - Vital Signs Vital signs: Vital Signs Temp 98.1 F 10/03/18 16:00 Pulse 91 10/03/18 17:00 Resp 13 10/03/18 17:00 BP 116/55 10/03/18 17:00 Pulse Ox 98 10/03/18 17:00 Intake & Output 10/02/18 10/03/18 10/03/18 18:59 06:59 18:59 Intake Total 9239.858 9780.545 1982.549 Output Total 420 385 650 Balance 992.173 288.607 4351.549 Weight 78 kg 81.7 kg Intake: IV 9092 035 4087 Dextrose 5% in Water 1, 750 000 ml @ 75 mls/hr IV . [id number] [facility] Rx#:[id number] Mvi, Adult No.4 with Vit 150 K 10 ml Trace (Conc-1Ml/ Dose) 1 ml In Amino Acid 5%-D15w+Lytes*E* 1,000 ml @ 30 mls/hr IV .Q24H [facility] Rx#:[id number] Mvi, Adult No.4 with Vit 350 K 10 ml Trace (Conc-1Ml/ Dose) 1 ml Potassium Acetate 10 meq In Amino Acid 5%-D15w+Lytes*E* 1, 000 ml @ 70 mls/hr IV .BY DURATION [facility] Rx#: [id number] cefTRIAXone 1 gm In 50 50 Sodium Chloride 0.9% 50 ml @ 100 mls/hr IVPB Q24HR [facility] Rx#:[id number] dextrose 5% 900 900 75 metroNIDAZOLE-NS PMX 500 100 200 mg In Saline 1 100ml.bag @ 100 mls/hr IVPB Q8HR [facility] Rx#:[id number] Intake, IV Titration 182.173 164.545 97.549 Amount Propofol 1,000 mg In 182.173 164.545 97.549 Empty Bag 1 bag @ Titrate IV .Q0M [facility] Rx#: [id number] Oral 180 Blood Product 0 310 Rc As-1 Unit 0 310 [id number] Output: Gastric Drainage 200 Urine 420 385 450 Other: Voiding Method Indwelling Catheter Indwelling Catheter Indwelling Catheter - Exam General appearance: The patient is sedated and intubated HEENT: Head is normocephalic and atraumatic. Pupils are equal and reactive. Th e nares are patent. Oropharynx is clear without lesions. Orogastric tube without bleeding. Neck: Supple without lymphadenopathy. Trachea midline. Heart: S1 S2. Regular rate and rhythm. Lungs: No crackles or wheezes are heard. Abdomen: Soft, nontender, nondistended with good bowel sounds. No peritoneal signs. No palpable organomegaly or masses. Extremities: Normal skin color and turgor. No cyanosis, rash, ulceration, clubbing, or edema. Pulses palpable bilaterally. Lim clear kylee urine. Fecal management system green dark black stool. Neurological: Cannot be assessed at this time since the patient is intubated and sedated. - Labs CBC & Chem 7: 10/03/18 12:10 10/03/18 03:31 Labs: Abnormal Lab Results - Last 24 Hours (Table) 10/02/18 10/02/18 10/02/18 Range/Units 18:03 18:03 18:13 RBC 2.02 L (4.30-5.90) m/uL Hgb 7.0 L (13.0-17.5) gm/dL Hct 21.1 L (39.0-53.0) % MCV 104.3 H (80.0-100.0) fL MCHC (31.0-37.0) g/dL RDW 17.4 H (11.5-15.5) % Plt Count 112 L (150-450) k/uL ABG pCO2 (35-45) mmHg ABG Total CO2 (19-24) mmol/L ABG O2 Saturation (94-97) % Potassium 3.3 L (3.5-5.1) mmol/L Chloride (98-107) mmol/L BUN (9-20) mg/dL Creatinine (0.66-1.25) mg/dL Glucose (74-99) mg/dL POC Glucose (mg/dL) 139 H (75-99) mg/dL Calcium (8.4-10.2) mg/dL Total Protein (6.3-8.2) g/dL Albumin (3.5-5.0) g/dL Crossmatch 10/02/18 10/03/18 10/03/18 Range/Units 23:33 00:01 03:31 RBC 2.03 L 2.11 L (4.30-5.90) m/uL Hgb 7.0 L 6.8 L* (13.0-17.5) gm/dL Hct 21.4 L 22.1 L (39.0-53.0) % MCV 105.2 H 105.0 H (80.0-100.0) fL MCHC 30.7 L (31.0-37.0) g/dL RDW 17.1 H 16.5 H (11.5-15.5) % Plt Count 112 L 125 L (150-450) k/uL ABG pCO2 (35-45) mmHg ABG Total CO2 (19-24) mmol/L ABG O2 Saturation (94-97) % Potassium (3.5-5.1) mmol/L Chloride (98-107) mmol/L BUN (9-20) mg/dL Creatinine (0.66-1.25) mg/dL Glucose (74-99) mg/dL POC Glucose (mg/dL) 132 H (75-99) mg/dL Calcium (8.4-10.2) mg/dL Total Protein (6.3-8.2) g/dL Albumin (3.5-5.0) g/dL Crossmatch 10/03/18 10/03/18 10/03/18 Range/Units 03:31 05:07 05:22 RBC (4.30-5.90) m/uL Hgb (13.0-17.5) gm/dL Hct (39.0-53.0) % MCV (80.0-100.0) fL MCHC (31.0-37.0) g/dL RDW (11.5-15.5) % Plt Count (150-450) k/uL ABG pCO2 34 L (35-45) mmHg ABG Total CO2 25 H (19-24) mmol/L ABG O2 Saturation 98.4 H (94-97) % Potassium (3.5-5.1) mmol/L Chloride 116 H (98-107) mmol/L BUN 23 H (9-20) mg/dL Creatinine 0.59 L (0.66-1.25) mg/dL Glucose 113 H (74-99) mg/dL POC Glucose (mg/dL) (75-99) mg/dL Calcium 7.3 L (8.4-10.2) mg/dL Total Protein 4.5 L (6.3-8.2) g/dL Albumin 1.7 L (3.5-5.0) g/dL Crossmatch See Detail 10/03/18 10/03/18 10/03/18 Range/Units 06:45 11:53 12:10 RBC 2.54 L (4.30-5.90) m/uL Hgb 8.3 L D (13.0-17.5) gm/dL Hct 25.4 L (39.0-53.0) % MCV (80.0-100.0) fL MCHC (31.0-37.0) g/dL RDW 18.0 H (11.5-15.5) % Plt Count 117 L (150-450) k/uL ABG pCO2 (35-45) mmHg ABG Total CO2 (19-24) mmol/L ABG O2 Saturation (94-97) % Potassium (3.5-5.1) mmol/L Chloride (98-107) mmol/L BUN (9-20) mg/dL Creatinine (0.66-1.25) mg/dL Glucose (74-99) mg/dL POC Glucose (mg/dL) 120 H 120 H (75-99) mg/dL Calcium (8.4-10.2) mg/dL Total Protein (6.3-8.2) g/dL Albumin (3.5-5.0) g/dL Crossmatch Microbiology - Last 24 Hours (Table) 10/01/18 11:50 Gram Stain - Final Sputum Sputum Culture - Final Lisa albicans 09/29/18 18:09 Blood Culture - Preliminary Blood No Growth after 72 hours Assessment and Plan Assessment: Upper gastrointestinal bleed with duodenal ulcer Anemia secondary to acute GI bleed Acute blood loss anemia Possible aspiration pneumonia Altered mental status metabolic encephalopathy related to hepatic encephalopathy elevated ammonia level history of alcohol abuse Gallbladder mass was attempting to have patient have consult with Dr. Teresa in [facility] Leukocytosis History of COPD GERD Plan Patient is on mechanical ventilator. Pulmonary is on board. Hemoglobin is 6.8 today. Follow-up H&H and transfuse as needed.. GI is on board. On antibiotics for possible aspiration pneumonia. Long-term patient needs to see Dr. Teresa in [facility] for gallbladder mass. Further recommendations based on the clinical course. Prognosis is guarded. Time with Patient: Greater than 30
[2018-10-04] MEDS: IPRATROPIUM-ALBUTEROL 3 ML NEB INHALATION SCH ×6 (03:23→23:46)
[2018-10-04] MEDS: 1: MVI, ADULT NO.4 WITH VIT K 10 ML, TRACE (CONC-1ML/DOSE) 1 ML, POTASSIUM ACETATE 10 ME IV SCH ×8 (04:13→19:00)
[2018-10-04] MEDS: DEXTROSE 5% IN WATER 1,000 ML IV SCH (04:14)
[2018-10-04] MEDS: PROPOFOL 1,000 MG in EMPTY BAG 1 BAG IV SCH (04:15)
[2018-10-04 04:18] LABS: ABG HCO3 24 mmol/L (21-25); ABG Oxygen Saturation 96.2 % (94-97); ABG PCO2 35 mmHg (35-45); ABG PH 7.45 (7.35-7.45); ABG PO2 75 mmHg (83-108); ABG TCO2 25 mmol/L (19-24); Allen Test Performed? Yes
[2018-10-04 06:24] LABS: Glucose,Whole Blood 139 mg/dL (75-99)
[2018-10-04 06:29] LABS: ALT 24 U/L (21-72); AST 27 U/L (17-59); African American GFR (CKD) >90 (>60 ml/min/1.73 sqM); Albumin 1.6 g/dL (3.5-5.0); Alkaline Phosphatase 77 U/L (38-126); Anion Gap 2 mmol/L; Blood Urea Nitrogen 19 mg/dL (9-20); Calcium 7.2 mg/dL (8.4-10.2); Carbon Dioxide 23 mmol/L (22-30); Chloride 112 mmol/L (98-107); Glucose 124 mg/dL (74-99); Magnesium 2.1 mg/dL (1.6-2.3); Phosphorus 3.3 mg/dL (2.5-4.5); Potassium 4.2 mmol/L (3.5-5.1); Sodium 137 mmol/L (137-145); Total Bilirubin 0.9 mg/dL (0.2-1.3); Total Protein 4.4 g/dL (6.3-8.2)
[2018-10-04 07:33] LABS: Anisocytosis Slight; HCT 23.8 % (39.0-53.0); HGB 7.3 gm/dL (13.0-17.5); Hypochromasia Slight; MCH 31.3 pg (25.0-35.0); MCHC 30.8 g/dL (31.0-37.0); MCV 101.7 fL (80.0-100.0); Macrocytosis Moderate; Mean Platelet Volume 7.9; Platelet Count 106 k/uL (150-450); Poikilocytosis Slight; RBC 2.34 m/uL (4.30-5.90); WBC 5.7 k/uL (3.8-10.6)
[2018-10-04] MEDS: PANTOPRAZOLE 40 MG/10 ML VIAL IV SCH ×2 (08:17→20:30)
[2018-10-04] MEDS: CHLORHEXIDINE GLUCONATE 15 ML CUP MUCOUS MEM SCH ×2 (08:17→20:30)
[2018-10-04] MEDS: THIAMINE 100 MG TAB PO SCH ×2 (08:17→18:15)
[2018-10-04] MEDS: LACTULOSE 20 GM/30 ML CUP PO SCH (08:17)
--- NOTE | 2018-10-04 08:43 | XR ---
EXAMINATION TYPE: XR chest 1V portable DATE OF EXAM: 10/04/2018 COMPARISON: 10/03/2018 HISTORY: SOB, Follow Up FINDINGS: Indwelling tubes and catheters are unchanged. Suspect left basilar atelectasis. Stable appearance of the cardio-mediastinal structures at this time. Pleural effusion unchanged. IMPRESSION: 1. Stable portable chest. Clinical correlation and follow up until resolution is recommended.
[2018-10-04] MEDS: SODIUM CHLORIDE 0.9% 1,000 ML IV SCH (10:00)
--- NOTE | 2018-10-04 10:06 | P.PN ---
Subjective Progress Note Date: 10/04/18 Principal diagnosis: Acute GI bleeding this is a 62-year-old white male who presented to the ER today with 1 day history of for large bloody bowel movements.this was associated with nausea and vomiting, he vomited some dark-looking material. Denied any hematemesis. Denied any melena. Apparently the patient was recently at [facility] for abdominal pain, exact workup is not clear at the time of this dictation, but he was discharged out of [facility] about 2 days ago. Since discharge, the patient has been feeling rundown and fatigued.on admission his initial hemoglobin was 8.8, since then patient had further episodes of bright red blood per rectum and bloody bowel movements, follow-up hemoglobin is 7.3, patient will be receiving blood transfusion, and arrangements were made for the patient to be admitted to the ICU.the patient himself is a very poor historian, apparently when he arrived he was extremely agitated, he is known to have history of alcohol abuse, hence he was given Ativan and he was placed on the C1wa protocol.during my evaluation, the patient was noted to be sedated, calm, cannot give much history, quite lethargic, arousable but easily gets agitated. Apparently his ammonia level was high, hence I recommended nasogastric tube to be placed and to start lactulose. As the patient may have obviously hepatic encephalopathy.lactic acid on admi ssion was 4.3, hence fluid boluses were given. Patient is not requiring any pressors, and he seems to be hemodynamically stable at this point.patient is also known to have history of COPD, mild clubbing noted on physical examination, hence he was placed on DuoNeb updrafts 4 times a day and when necessary. Patient was also placed on Rocephin for his presentation of hepatic encephalopathy and hyperammonemia. On 09/30/2018 patient seen in follow-up in the intensive care unit. Patient is on mechanical ventilator, sedated, and ventilating's are assist-control mode of ventilation with a rate of 12, tidal and 400, FiO2 of 40% and PEEP of 5, this morning his blood gases showed pO2 of 133, pCO2 33, and pH of 7.39, this was done on FiO2 of 50%, FiO2 had since been dropped down to 40%. IVs include 0.9 normal saline at a rate of 75 ML per hour, Diprivan and is at 50 mics per kilo per minute. Patient received 2 units of packed red blood cells for hemoglobin of 7.3, this morning hemoglobin is 8.4, with blood cell count is 10.7, platelet count is 159, and sodium is 142, potassium is 4.5, chloride is 118, CO2 17, BUN is 44, creatinine 0.87, urinalysis was clear, no signs of infection, drug screen was positive for opiates and benzodiazepines. Patient has been afebrile, was dynamically stable, his chest x-ray has been reviewed, showing COPD and newly developing infiltrate in the right upper lobe. Antibiotic coverage in the form of Rocephin. Blood cultures are pending, sputum culture will be sent. he is receiving lactulose per OG tube, and ammonia level is down to 64 on today's labs . We'll catheter is in, and patient is nonoliguric. Lung sounds are clear. On 10/01/2018 patient seen in follow-up in the intensive care unit, he remains sedated, and intubated, on mechanical ventilator. Yesterday patient underwent EGD, and was found to have a duodenal ulcer, which could not be clipped related to its location. Was injected with epinephrine. Today's labs have been reviewed, showing white blood cell count of 7.7, hemoglobin is 7.4, serum sodium is 142, potassium 3.9, chloride is 120, CO2 is 18, B1 is 36, creatinine 0.84. She received 2 units of packed red blood cells this admission. FMS system is in place, draining liquid melanotic stool. Hemodynamic patient is stable, heart rate is controlled. Lung sounds are clear, patient's comfortable on the ventilator, currently on assist control mode of ventilation with a rate of 12, tidal volume 400, FiO2 of 40%, and PEEP of 5, this morning his blood gases were reviewed, showing pO2 of 132, pCO2 of 31, pH of 7.40, and FiO2 was dropped down to 30%. Currently on IVs including 0.9 normal saline at 75 ML per hour, propof ol is at 50 mics per kilo per minute. No tube feedings right now. We'll proceed with sedation holiday today, to assess mentation, and likely proceed with weaning trials, with pressure support of 5, and CPAP of 5. Chest x-ray has been reviewed, showing chronic changes, without acute pulmonary disease. On 10/02/2018 patient seen in follow-up in the intensive care unit. Patient has been off sedation since this morning, but remains very sedated. Intubated on mechanical ventilator, on assist control mode of ventilation with a rate of 12, tidal vital 400, FiO2 30% and PEEP of 5. This morning blood gases were reviewed, showing a pO2 of 64, pCO2 46, and pH of 7.36. Chest x-ray this morning showed no acute pulmonary process, lungs are clear, ET-tube and a NG- tube in the appropriate positions. No acute events overnight, yesterday patient was given sedation holiday, however he never did fully wake up and follow commands, and in the evening became quite tachypneic and was placed back on s edation. IV 0.9 normal saline at a rate of 75 ML per hour, no other drips, this morning's blood work has been reviewed, showing white blood cell count is 6.9, hemoglobin of 7.3, the patient has a fecal management system in place, and he is putting out liquid melanotic stool. Receiving lactulose, he did produce 1100 mL of liquid stool in the last 24 hours. He is developing fluid volume contraction alkalosis and hypernatremia. He has been nothing by mouth, no nutrition since admission. We will inquire with GI service whether tube feedings can be started. Lung sounds are clear. Microbiology data has been reviewed, showing blood, urine and sputum cultures are no growth so far, final cultures are pending. Better coverage in the form of Rocephin and Flagyl. On 10/03/2018 patient seen in follow-up in the intensive care unit, he remains sedated, intubated on mechanical ventilator, current vent settings are assist- control mode of ventilation with a rate of 12, tidal 400, FiO2 of 30% and PEEP of 5. This morning his blood gases showed pO2 of 94, pCO2 34, pH of 7.45. IV fluids D5W at a rate of 75 ML per hour, TPN is a 30 ML per hour, and propofol is at 30 mics per kilo per minute. This morning's lab work has been reviewed, showing white blood cell count of 5.0, hemoglobin of 6.8, patient was given a unit of blood, sodium is 140, potassium is 4.1, chloride is 116, CO2 is 22, BUN is 23, creatinine is 0.59. Ammonia level is down to 28, yesterday we decreased the lactulose to once daily, she patient was given a daily traction of sedation, did not become fully awake, or following commands, did become quite asynchronous and tachypneic, and had to be re-sedated. Today's chest x-ray has been reviewed, showing stable changes of COPD without acute process. Patient is afebrile, blood urine and sputum cultures are negative. Some liquid dark green output, with no visible blood in the stool. She remains on Rocephin and Flagyl for antibiotic coverage. TPN is at 30 ML per hour per GI service recommendations. On 10/04/2018 patient seen in follow-up in the intensive care unit, he remains sedated, intubated on mechanical ventilator, this morning's blood gases showed a pO2 of 75, pCO2 35, and pH of 7.45, this was done on assist control mode of ventilation with a rate of 12, tidal vital 400, FiO2 30% and PEEP of 5. This morning chest x-rays has been reviewed, showing stable changes of COPD without acute process and small left pleural effusion. Yesterday patient was given the daily traction of sedation, he started moving his extremities, however he did not open his eyes and follow commands, brain CT was obtained and showed no acute intracranial abnormality. Patient was placed on the PSV 5 and pressure-support of 5 yesterday and did sustain an for 4 hours, and then placed back on assist control mode of ventilation for the night. This morning he was placed back on pressure-support of 8, with the CPAP of 5, he is tolerating it well so far. Sedation is on hold, this morning blood work was reviewed, showing white blood cell count of 5.7, hemoglobin of 7.3, serum sodium is 137, potassium is 4.2, chloride is 112, CO2 is 23, BUN is 19, creatinine 0.53. Afebrile, vital signs are stable, microbiology data has been reviewed, showing only Lisa albicans in the sputum culture, patient has been on empiric antibiotics in the form of Rocephin and Flagyl, will discontinue them. Remains on TPN at 79 per hour, and D5W at a rate of 75 ML per hour. Objective - Vital Signs Vital signs: Vital Signs Temp 96.4 F L 10/04/18 04:00 Pulse 77 10/04/18 07:55 Resp 13 10/04/18 07:00 BP 120/62 10/04/18 07:00 Pulse Ox 98 10/04/18 07:00 Intake & Output 10/03/18 10/04/18 10/04/18 18:59 06:59 18:59 Intake Total 2127.549 2007.321 212.863 Output Total 700 575 40 Balance 5677.241 6096.321 172.863 Weight 83.7 kg Intake: IV 1720 1740 145 Dextrose 5% in Water 1, 825 900 75 000 ml @ 75 mls/hr IV . [id number] [facility] Rx#:[id number] Mvi, Adult No.4 with Vit 150 K 10 ml Trace (Conc-1Ml/ Dose) 1 ml In Amino Acid 5%-D15w+Lytes*E* 1,000 ml @ 30 mls/hr IV .Q24H [facility] Rx#:[id number] Mvi, Adult No.4 with Vit 420 840 70 K 10 ml Trace (Conc-1Ml/ Dose) 1 ml Potassium Acetate 10 meq In Amino Acid 5%-D15w+Lytes*E* 1, 000 ml @ 70 mls/hr IV .BY D[facility] Rx#: [id number] cefTRIAXone 1 gm In 50 Sodium Chloride 0.9% 50 ml @ 100 mls/hr IVPB Q24HR [facility] Rx#:[id number] dextrose 5% 75 metroNIDAZOLE-NS PMX 500 200 mg In Saline 1 100ml.bag @ 100 mls/hr IVPB Q8HR [facility] Rx#:[id number] Intake, IV Titration 97.549 267.321 67.863 Amount Propofol 1,000 mg In 97.549 167.321 67.863 Empty Bag 1 bag @ Titrate IV .Q0M [facility] Rx#: [id number] metroNIDAZOLE-NS PMX 500 100 mg In Saline 1 100ml.bag @ 100 mls/hr IVPB Q8HR [facility] Rx#:[id number] Blood Product 310 Rc As-1 Unit 310 [id number] Output: Gastric Drainage 200 Urine 500 575 40 Other: Voiding Method Indwelling Catheter Indwelling Catheter - Exam GENERAL EXAM: Sedated, 62-year-old white male, intubated comfortable in no apparent distress. On pressure-support mode of ventilation with the pressure- support of 8 and CPAP of 5 HEAD: Normocephalic/atraumatic. EYES: Normal reaction of pupils, equal size. Conjunctiva pink, sclera white. NOSE: Clear with pink turbinates. THROAT: No erythema or exudates. NECK: No masses, no JVD, no thyroid enlargement, no adenopathy. CHEST: No chest wall deformity. Symmetrical expansion. LUNGS: Equal air entry with no crackles, wheeze, rhonchi or dullness. CVS: Regular rate and rhythm, normal S1 and S2, no gallops, no murmurs, no rubs ABDOMEN: Soft, nontender. No hepatosplenomegaly, normal bowel sounds, no guarding or rigidity. EXTREMITIES: No clubbing, no edema, no cyanosis, 2+ pulses and upper and lower extremities. MUSCULOSKELETAL: Muscle strength and tone normal. SPINE: No scoliosis or deformity SKIN: No rashes CENTRAL NERVOUS SYSTEM: sedated No focal deficits, tone is normal in all 4 extremities. PSYCHIATRIC: Unable to assess, patient is sedated, intubated - Labs CBC & Chem 7: 10/04/18 05:51 10/04/18 05:51 Labs: Abnormal Lab Results - Last 24 Hours (Table) 10/03/18 10/03/18 10/03/18 Range/Units 11:53 12:10 18:03 RBC 2.54 L (4.30-5.90) m/uL Hgb 8.3 L D (13.0-17.5) gm/dL Hct 25.4 L (39.0-53.0) % MCV (80.0-100.0) fL MCHC (31.0-37.0) g/dL RDW 18.0 H (11.5-15.5) % Plt Count 117 L (150-450) k/uL ABG pO2 (83-108) mmHg ABG Total CO2 (19-24) mmol/L Chloride (98-107) mmol/L Creatinine (0.66-1.25) mg/dL Glucose (74-99) mg/dL POC Glucose (mg/dL) 120 H 118 H (75-99) mg/dL Calcium (8.4-10.2) mg/dL Total Protein (6.3-8.2) g/dL Albumin (3.5-5.0) g/dL 10/04/18 10/04/18 10/04/18 Range/Units 00:24 04:17 05:51 RBC (4.30-5.90) m/uL Hgb (13.0-17.5) gm/dL Hct (39.0-53.0) % MCV (80.0-100.0) fL MCHC (31.0-37.0) g/dL RDW (11.5-15.5) % Plt Count (150-450) k/uL ABG pO2 75 L (83-108) mmHg ABG Total CO2 25 H (19-24) mmol/L Chloride 112 H (98-107) mmol/L Creatinine 0.53 L (0.66-1.25) mg/dL Glucose 124 H (74-99) mg/dL POC Glucose (mg/dL) 131 H (75-99) mg/dL Calcium 7.2 L (8.4-10.2) mg/dL Total Protein 4.4 L (6.3-8.2) g/dL Albumin 1.6 L (3.5-5.0) g/dL 10/04/18 10/04/18 Range/Units 05:51 06:13 RBC 2.34 L (4.30-5.90) m/uL Hgb 7.3 L (13.0-17.5) gm/dL Hct 23.8 L (39.0-53.0) % MCV 101.7 H (80.0-100.0) fL MCHC 30.8 L (31.0-37.0) g/dL RDW 17.0 H (11.5-15.5) % Plt Count 106 L (150-450) k/uL ABG pO2 (83-108) mmHg ABG Total CO2 (19-24) mmol/L Chloride (98-107) mmol/L Creatinine (0.66-1.25) mg/dL Glucose (74-99) mg/dL POC Glucose (mg/dL) 139 H (75-99) mg/dL Calcium (8.4-10.2) mg/dL Total Protein (6.3-8.2) g/dL Albumin (3.5-5.0) g/dL Microbiology - Last 24 Hours (Table) 09/29/18 18:09 Blood Culture - Preliminary Blood No Growth after 96 hours 10/01/18 11:50 Gram Stain - Final Sputum Sputum Culture - Final Lisa albicans Assessment and Plan Plan: Assessment: Acute GI bleeding in a patient with known history of alcoholism, differential diagnoses includes peptic ulcer disease, esophageal varices, erosive gastritis, and even possibly diverticular disease/diverticulosis. he underwent EGD on 09/30/2018 was found to have a duodenal ulcer which was injected with epinephrine, but could not be clipped Acute hepatic encephalopathy with significantly elevated ammonia level secondary to underlying alcohol related liver disease. Continues to improve, remains on lactulose, today's serum ammonia level was 28 on 10/03/2018 history of underlying COPD, patient is now on bronchodilators in the form of DuoNeb. Presently his COPD is inactive. Benign essential hypertension Degenerative joint disease History of alcohol abuse Volume contraction alkalosis Hyponatremia and hyperchloremia related to free water deficit and infusion of 0.9 normal saline, corrected Plan: We'll hold the sedation, we'll discontinue all narcotics, and benzodiazepines. We'll continue with the per support of 8 and CPAP of 5, his chest x-ray showed stable findings of COPD, and small left pleural effusion, we'll stop the D5 W, we'll check with the GI service with the patient can be fed through NG tube, CT brain has shown no acute intracranial process. Continue with once daily lactulose, we'll stop antibiotics, all culture data negative remains negative thus far. The patient's mentation does not improve patient will likely need a tracheostomy and PEG tube placement. I performed a history & physical examination of the patient and discussed their management with my nurse practitioner, Irena Ortiz. I reviewed the nurse practitioner's note and agree with the documented findings and plan of care. Lung sounds are positive for clear breath sounds. The findings and the impression was discussed with the patient. I attest to the documentation by the nurse practitioner. Time with Patient: Greater than 30
[2018-10-04 12:04] LABS: Glucose,Whole Blood 119 mg/dL (75-99)
--- NOTE | 2018-10-04 13:01 | PN ---
PROGRESS NOTE DATE OF SERVICE: 10/04/2018 REASON FOR FOLLOWUP: Possible aspiration pneumonitis. INTERVAL HISTORY: The patient is currently afebrile. The patient has been breathing comfortably. Hemodynamically stable. FiO2 is stable. Did have diarrhea with The patient remains to be sedated on the vent. Unable to provide any history. PHYSICAL EXAMINATION: Blood pressure 126/53, pulse of 90, temperature 98, he is 99% on 30% FiO2. General description is a middle-aged male, lying in bed in no distress. RESPIRATORY SYSTEM: Unlabored breathing, clear to auscultation anteriorly. HEART: S1, S2. Regular rate and rhythm. ABDOMEN: Soft, no tenderness. LABS: White count of 5.7. BUN of 92, creatinine 2.53. DIAGNOSTIC IMPRESSION AND PLAN: 1. Patient with leukocytosis on presentation, more likely reactive pneumonitis. Patient had about a week of antibiotic, that should be enough, antibiotic has been discontinued. 2. The patient now with diarrhea with fecal stool for C diff to be positive. Continue supportive care. MMODL / IJN: [id number] /
--- NOTE | 2018-10-04 13:23 | P.PN ---
Subjective Progress Note Date: 10/04/18 Principal diagnosis: GI bleed duodenal ulcer Intubated. CPAP. Off sedation. Fecal management system with mixed green dark stool. No gross hematochezia. No bloody output from OG. Hemoglobin 7.3 blood transfusion 3 since admission. Ammonia normalize 28. Objective - Vital Signs Vital signs: Vital Signs Temp 97.7 F 10/04/18 08:00 Pulse 96 10/04/18 11:55 Resp 12 10/04/18 11:00 BP 126/63 10/04/18 11:00 Pulse Ox 99 10/04/18 11:00 Intake & Output 10/03/18 10/04/18 10/04/18 18:59 06:59 18:59 Intake Total 2127.549 2007.321 883.365 Output Total 700 575 285 Balance 7198.323 5939.321 598.365 Weight 83.7 kg 83.7 kg Intake: IV 1720 1740 815 Dextrose 5% in Water 1, 825 900 225 000 ml @ 75 mls/hr IV . [id number] [facility] Rx#:[id number] Mvi, Adult No.4 with Vit 150 K 10 ml Trace (Conc-1Ml/ Dose) 1 ml In Amino Acid 5%-D15w+Lytes*E* 1,000 ml @ 30 mls/hr IV .Q24H [facility] Rx#:[id number] Mvi, Adult No.4 with Vit 420 840 350 K 10 ml Trace (Conc-1Ml/ Dose) 1 ml Potassium Acetate 10 meq In Amino Acid 5%-D15w+Lytes*E* 1, 000 ml @ 70 mls/hr IV .BY DURATION [facility] Rx#: [id number] Sodium Chloride 0.9% 1, 40 000 ml @ 20 mls/hr IV . Q24H [facility] Rx#:[id number] cefTRIAXone 1 gm In 50 100 Sodium Chloride 0.9% 50 ml @ 100 mls/hr IVPB Q24HR [facility] Rx#:[id number] dextrose 5% 75 metroNIDAZOLE-NS PMX 500 200 100 mg In Saline 1 100ml.bag @ 100 mls/hr IVPB Q8HR [facility] Rx#:[id number] Intake, IV Titration 97.549 267.321 68.365 Amount Propofol 1,000 mg In 97.549 167.321 68.365 Empty Bag 1 bag @ Titrate IV .Q0M [facility] Rx#: [id number] metroNIDAZOLE-NS PMX 500 100 mg In Saline 1 100ml.bag @ 100 mls/hr IVPB Q8HR [facility] Rx#:[id number] Blood Product 310 Rc As-1 Unit 310 [id number] Output: Gastric Drainage 200 Urine 500 575 285 Other: Voiding Method Indwelling Catheter Indwelling Catheter Indwelling Catheter - Exam General appearance: The patient is unresponsive intubated HEENT: Head is normocephalic and atraumatic. Pupils are equal and reactive. The nares are patent. Oropharynx is clear without lesions. Orogastric tube without bleeding. Neck: Supple without lymphadenopathy. Trachea midline. Heart: S1 S2. Regular rate and rhythm. Lungs: No crackles or wheezes are heard. Abdomen: Soft, nontender, nondistended with good bowel sounds. No peritoneal signs. No palpable organomegaly or masses. Extremities: Normal skin color and turgor. No cyanosis, rash, ulceration, clubbing, or edema. Radial and pedal pulses are 2/4 bilaterally. Lim clear kylee urine. Fecal management system green dark black stool. Neurological: Cannot be assessed at this time since the patient is intubated and sedated. - Labs CBC & Chem 7: 10/04/18 05:51 10/04/18 05:51 Labs: Abnormal Lab Results - Last 24 Hours (Table) 10/03/18 10/04/18 10/04/18 Range/Units 18:03 00:24 04:17 RBC (4.30-5.90) m/uL Hgb (13.0-17.5) gm/dL Hct (39.0-53.0) % MCV (80.0-100.0) fL MCHC (31.0-37.0) g/dL RDW (11.5-15.5) % Plt Count (150-450) k/uL ABG pO2 75 L (83-108) mmHg ABG Total CO2 25 H (19-24) mmol/L Chloride (98-107) mmol/L Creatinine (0.66-1.25) mg/dL Glucose (74-99) mg/dL POC Glucose (mg/dL) 118 H 131 H (75-99) mg/dL Calcium (8.4-10.2) mg/dL Total Protein (6.3-8.2) g/dL Albumin (3.5-5.0) g/dL 10/04/18 10/04/18 10/04/18 Range/Units 05:51 05:51 06:13 RBC 2.34 L (4.30-5.90) m/uL Hgb 7.3 L (13.0-17.5) gm/dL Hct 23.8 L (39.0-53.0) % MCV 101.7 H (80.0-100.0) fL MCHC 30.8 L (31.0-37.0) g/dL RDW 17.0 H (11.5-15.5) % Plt Count 106 L (150-450) k/uL ABG pO2 (83-108) mmHg ABG Total CO2 (19-24) mmol/L Chloride 112 H (98-107) mmol/L Creatinine 0.53 L (0.66-1.25) mg/dL Glucose 124 H (74-99) mg/dL POC Glucose (mg/dL) 139 H (75-99) mg/dL Calcium 7.2 L (8.4-10.2) mg/dL Total Protein 4.4 L (6.3-8.2) g/dL Albumin 1.6 L (3.5-5.0) g/dL 10/04/18 Range/Units 11:53 RBC (4.30-5.90) m/uL Hgb (13.0-17.5) gm/dL Hct (39.0-53.0) % MCV (80.0-100.0) fL MCHC (31.0-37.0) g/dL RDW (11.5-15.5) % Plt Count (150-450) k/uL ABG pO2 (83-108) mmHg ABG Total CO2 (19-24) mmol/L Chloride (98-107) mmol/L Creatinine (0.66-1.25) mg/dL Glucose (74-99) mg/dL POC Glucose (mg/dL) 119 H (75-99) mg/dL Calcium (8.4-10.2) mg/dL Total Protein (6.3-8.2) g/dL Albumin (3.5-5.0) g/dL Microbiology - Last 24 Hours (Table) 09/29/18 18:09 Blood Culture - Preliminary Blood No Growth after 96 hours 10/01/18 11:50 Gram Stain - Final Sputum Sputum Culture - Final Lisa albicans Assessment and Plan (1) GI hemorrhage Current Visit: Yes Status: Acute Code(s): K92.2 - GASTROINTESTINAL HEMORRHAGE, UNSPECIFIED SNOMED Code(s): 80795558 (2) Duodenal ulcer Current Visit: Yes Status: Acute Code(s): K26.9 - DUODENAL ULCER, UNSP ACUTE OR CHRONIC, W/O HEMOR OR PERF SNOMED Code(s): 25198520 (3) Acute blood loss anemia Current Visit: Yes Status: Acute Code(s): D62 - ACUTE POSTHEMORRHAGIC ANEMIA SNOMED Code(s): 947628651 (4) H/O ETOH abuse Current Visit: Yes Status: Acute Code(s): F10.11 - ALCOHOL ABUSE, IN REMISSION SNOMED Code(s): 473097607 (5) Hepatic encephalopathy Current Visit: Yes Status: Acute Code(s): K72.90 - HEPATIC FAILURE, UNSPECIFIED WITHOUT COMA SNOMED Code(s): 06696313 (6) Endotracheally intubated Current Visit: Yes Status: Acute Code(s): Z97.8 - PRESENCE OF OTHER SPECIFIED DEVICES SNOMED Code(s): 610751023 Plan: 1. Parenteral nutrition. May start cycle feeds. Protonix 40 mg twice daily. CBC monitoring. Extubation per apple checker. Lactulose 20 g daily. Assessment and plan a care discussed with Dr. Mckinney
--- NOTE | 2018-10-04 14:51 | CDI ---
Documentation Clarification Form Date: 10/04/2018 From: Yeimi Ramos RN CCDS Admit Date: 09/29/2018 3:23:00 PM Patient Name: Real Yoder Visit Number: [id number] Discharge Date: ATTENTION: The Clinical Documentation Specialists (CDI) and [facility] Coding Staff appreciate your assistance in clarifying documentation. Please respond to the clarification below the line at the bottom and electronically sign. The CDI & [facility] Coding staff will review the response and follow-up if needed. Please note: Queries are made part of the Legal Health Record. If you have any questions, please contact the author of this message via ITS. Dr. Gabriella Wong MD A Deep Tissue Injury is documented in the Nursing Assesment on 10/02/2018 History/Risk Factors: 62 year old male presents to the for lagre bloody bowel movements. Medical history Fracture of the right ankle with an extensive reconstruction surgery. COPD, Liver Disease; Alcohol abuse; HTN; Clinical Indicators: Location: Right Heel, Wound description: Deep Tissue Injury Treatment: Heel elevated off bed, boots Consults: GI; Pulmonary/Critical care: Infectious Disease ; Dietitian * Elements for accurate and compliant documentation of an ulcer: *The location/laterality of the ulcer *Etiology (decubitus/pressure, diabetic, PVD) *Stage I-IV, Unstageable, Suspected Deep Tissue Injury (To the deepest stage) *If the ulcer was present at admission (POA) or occurred after admission * In your professional opinion, can you please clarify the diagnosis, location, laterality and whether present on admission (POA): Stage 1 Pressure/Decubitus Ulcer (intact skin, non-blanching redness of local area) Stage 2 Pressure/Decubitus Ulcer (Partial thickness, loss of dermis, pink wound bed) Stage 3 Pressure/Decubitus Ulcer (Full thickness tissue loss) Stage 4 Pressure/Decubitus Ulcer (Full thickness tissue loss with exposed bone, tendon, or muscle. May have slough or eschar present) Unstageable Other condition, please specify Unable to determine Please indicate etiology of pressure ulcer (if known). (Last Revision: January 2017) Stage 2 Pressure/Decubitus Ulcer (Partial thickness, loss of dermis, pink wound bed) MTDD
[2018-10-04 18:08] LABS: Glucose,Whole Blood 111 mg/dL (75-99)
[2018-10-04] MEDS: NYSTATIN 100,000 UNIT/ML SUSP 500,000 UNIT/5 ML CUP PO SCH ×2 (18:14→22:31)
[2018-10-04] MEDS ORDERED: SODIUM CHLORIDE 0.9% 1,000 ML IV ONE (22:20)
[2018-10-05 00:20] LABS: Glucose,Whole Blood 95 mg/dL (75-99)
[2018-10-05] MEDS: IPRATROPIUM-ALBUTEROL 3 ML NEB INHALATION SCH ×5 (04:08→19:07)
[2018-10-05 04:55] LABS: ABG Base Excess 1.5 mmol/L; ABG HCO3 25 mmol/L (21-25); ABG Oxygen Saturation 98.8 % (94-97); ABG PCO2 34 mmHg (35-45); ABG PH 7.48 (7.35-7.45); ABG PO2 107 mmHg (83-108); ABG TCO2 26 mmol/L (19-24); Allen Test Performed? Yes
[2018-10-05 05:09] LABS: Anisocytosis Slight; HCT 22.6 % (39.0-53.0); HGB 7.2 gm/dL (13.0-17.5); Hypochromasia Slight; MCH 32.2 pg (25.0-35.0); MCHC 31.7 g/dL (31.0-37.0); MCV 101.5 fL (80.0-100.0); Macrocytosis Slight; Mean Platelet Volume 7.9; Platelet Count 106 k/uL (150-450); Poikilocytosis Slight; RBC 2.23 m/uL (4.30-5.90); RDW 16.5 % (11.5-15.5); WBC 6.3 k/uL (3.8-10.6)
[2018-10-05 05:30] LABS: ALT 27 U/L (21-72); AST 27 U/L (17-59); African American GFR (CKD) >90 (>60 ml/min/1.73 sqM); Albumin 1.5 g/dL (3.5-5.0); Alkaline Phosphatase 71 U/L (38-126); Anion Gap 0 mmol/L; Blood Urea Nitrogen 22 mg/dL (9-20); Calcium 7.2 mg/dL (8.4-10.2); Carbon Dioxide 25 mmol/L (22-30); Chloride 114 mmol/L (98-107); Glucose 101 mg/dL (74-99); Phosphorus 2.7 mg/dL (2.5-4.5); Potassium 4.2 mmol/L (3.5-5.1); Sodium 139 mmol/L (137-145); Total Bilirubin 1.2 mg/dL (0.2-1.3); Total Protein 4.2 g/dL (6.3-8.2)
[2018-10-05 05:45] LABS: Glucose,Whole Blood 132 mg/dL (75-99)
--- NOTE | 2018-10-05 07:02 | XR ---
EXAMINATION TYPE: XR chest 1V portable DATE OF EXAM: 10/05/2018 HISTORY: Tube placement. REFERENCE: Previous study dated 10/04/2018. FINDINGS: The entire chest is not visualized on this study. The the patient is ET tube is no longer c learly visible. The patient is NG tube remains in place, unchanged in appearance. Lung volumes are prominent. There is some left basilar airspace disease. There is a small left effusi on. There is mild vascular congestion there is no montez edema. IMPRESSION: CONTINUING LEFT BASILAR AIRSPACE DISEASE AND SMALL LEFT EFFUSION.
[2018-10-05] MEDS: PANTOPRAZOLE 40 MG/10 ML VIAL IV SCH ×2 (09:02→20:52)
[2018-10-05] MEDS: NYSTATIN 100,000 UNIT/ML SUSP 500,000 UNIT/5 ML CUP PO SCH ×4 (09:02→21:00)
[2018-10-05] MEDS: THIAMINE 100 MG TAB PO SCH ×2 (09:02→17:20)
[2018-10-05] MEDS: CHLORHEXIDINE GLUCONATE 15 ML CUP MUCOUS MEM SCH ×2 (09:02→20:49)
[2018-10-05] MEDS: LACTULOSE 20 GM/30 ML CUP PO SCH (09:02)
[2018-10-05] MEDS: 1: MVI, ADULT NO.4 WITH VIT K 10 ML, TRACE (CONC-1ML/DOSE) 1 ML, POTASSIUM ACETATE 10 ME IV SCH ×4 (09:18)
--- NOTE | 2018-10-05 09:29 | PN ---
PROGRESS NOTE DATE OF DICTATION: October 05, 2018 Patient is a 62-year-old white male admitted to hospital with acute upper gastrointestinal bleed and upper endoscopy done by Dr. Liriano 5 days ago and was noted to have duodenal ulcer that was injected with epinephrine. The patient, since then, has been doing. He received total of 3 units of blood transfusion. Last hemoglobin today 7.2 g/dL. He still remains intubated and sedated. No evidence of active bleeding. Presently on tube feeds, tolerating well. PHYSICAL EXAMINATION: Intubated, sedated. Blood pressure 121/62, pulse rate 90, temperature 99.3. HEENT examination unremarkable. Conjunctivae pink. Sclerae anicteric. Oral cavity no lesions. NECK: No jugular venous distention or lymph node enlargement. CHEST: Clear to auscultation. HEART: Regular rate and rhythm. ABDOMEN: Soft. Bowel sounds are positive. No organomegaly. EXTREMITIES: No pedal edema. FMS in place. Had dark bleeding stool. LABS: From today WBC 6.3, hemoglobin 7.2, platelets 106. Basic metabolic panel is within normal limits. BUN 22, creatinine 0.5. IMPRESSION: 1. Acute upper gastrointestinal bleed, status post EGD 5 days ago, noted to have a large duodenal bulbar ulcer that was injected with epinephrine. The patient is status post three units of blood transfusion so far. Hemoglobin showed slight decline to 7.2 g/dL, but clinically no evidence of further active bleeding. 2. History of heavy alcohol abuse. 3. Altered mental status, possible hepatic encephalopathy, presently intubated has been on hold. RECOMMENDATIONS: 1. Continue with IV Protonix 40 mg q.12 hours. 2. CBC on a daily basis. 3. We will continue to follow him closely during his hospital stay. Thank you for this consultation. MMODL / IJN: [id number] /
--- NOTE | 2018-10-05 10:48 | P.PN ---
Subjective Progress Note Date: 10/05/18 Principal diagnosis: Acute GI bleeding this is a 62-year-old white male who presented to the ER today with 1 day history of for large bloody bowel movements.this was associated with nausea and vomiting, he vomited some dark-looking material. Denied any hematemesis. Denied any melena. Apparently the patient was recently at [facility] for abdominal pain, exact workup is not clear at the time of this dictation, but he was discharged out of [place] about 2 days ago. Since discharge, the patient has been feeling rundown and fatigued.on admission his initial hemoglobin was 8.8, since then patient had further episodes of bright red blood per rectum and bloody bowel movements, follow-up hemoglobin is 7.3, patient will be receiving blood transfusion, and arrangements were made for the patient to be admitted to the ICU.the patient himself is a very poor historian, apparently when he arrived he was extremely agitated, he is known to have history of alcohol abuse, hence he was given Ativan and he was placed on the C1wa protocol.during my evaluation, the patient was noted to be sedated, calm, cannot give much history, quite lethargic, arousable but easily gets agitated. Apparently his ammonia level was high, hence I recommended nasogastric tube to be placed and to start lactulose. As the patient may have obviously hepatic encephalopathy.lactic acid on admi ssion was 4.3, hence fluid boluses were given. Patient is not requiring any pressors, and he seems to be hemodynamically stable at this point.patient is also known to have history of COPD, mild clubbing noted on physical examination, hence he was placed on DuoNeb updrafts 4 times a day and when necessary. Patient was also placed on Rocephin for his presentation of hepatic encephalopathy and hyperammonemia. On 09/30/2018 patient seen in follow-up in the intensive care unit. Patient is on mechanical ventilator, sedated, and ventilating's are assist-control mode of ventilation with a rate of 12, tidal and 400, FiO2 of 40% and PEEP of 5, this morning his blood gases showed pO2 of 133, pCO2 33, and pH of 7.39, this was done on FiO2 of 50%, FiO2 had since been dropped down to 40%. IVs include 0.9 normal saline at a rate of 75 ML per hour, Diprivan and is at 50 mics per kilo per minute. Patient received 2 units of packed red blood cells for hemoglobin of 7.3, this morning hemoglobin is 8.4, with blood cell count is 10.7, platelet count is 159, and sodium is 142, potassium is 4.5, chloride is 118, CO2 17, BUN is 44, creatinine 0.87, urinalysis was clear, no signs of infection, drug screen was positive for opiates and benzodiazepines. Patient has been afebrile, was dynamically stable, his chest x-ray has been reviewed, showing COPD and newly developing infiltrate in the right upper lobe. Antibiotic coverage in the form of Rocephin. Blood cultures are pending, sputum culture will be sent. he is receiving lactulose per OG tube, and ammonia level is down to 64 on today's labs . We'll catheter is in, and patient is nonoliguric. Lung sounds are clear. On 10/01/2018 patient seen in follow-up in the intensive care unit, he remains sedated, and intubated, on mechanical ventilator. Yesterday patient underwent EGD, and was found to have a duodenal ulcer, which could not be clipped related to its location. Was injected with epinephrine. Today's labs have been reviewed, showing white blood cell count of 7.7, hemoglobin is 7.4, serum sodium is 142, potassium 3.9, chloride is 120, CO2 is 18, B1 is 36, creatinine 0.84. She received 2 units of packed red blood cells this admission. FMS system is in place, draining liquid melanotic stool. Hemodynamic patient is stable, heart rate is controlled. Lung sounds are clear, patient's comfortable on the ventilator, currently on assist control mode of ventilation with a rate of 12, tidal volume 400, FiO2 of 40%, and PEEP of 5, this morning his blood gases were reviewed, showing pO2 of 132, pCO2 of 31, pH of 7.40, and FiO2 was dropped down to 30%. Currently on IVs including 0.9 normal saline at 75 ML per hour, propof ol is at 50 mics per kilo per minute. No tube feedings right now. We'll proceed with sedation holiday today, to assess mentation, and likely proceed with weaning trials, with pressure support of 5, and CPAP of 5. Chest x-ray has been reviewed, showing chronic changes, without acute pulmonary disease. On 10/02/2018 patient seen in follow-up in the intensive care unit. Patient has been off sedation since this morning, but remains very sedated. Intubated on mechanical ventilator, on assist control mode of ventilation with a rate of 12, tidal vital 400, FiO2 30% and PEEP of 5. This morning blood gases were reviewed, showing a pO2 of 64, pCO2 46, and pH of 7.36. Chest x-ray this morning showed no acute pulmonary process, lungs are clear, ET-tube and a NG- tube in the appropriate positions. No acute events overnight, yesterday patient was given sedation holiday, however he never did fully wake up and follow commands, and in the evening became quite tachypneic and was placed back on s edation. IV 0.9 normal saline at a rate of 75 ML per hour, no other drips, this morning's blood work has been reviewed, showing white blood cell count is 6.9, hemoglobin of 7.3, the patient has a fecal management system in place, and he is putting out liquid melanotic stool. Receiving lactulose, he did produce 1100 mL of liquid stool in the last 24 hours. He is developing fluid volume contraction alkalosis and hypernatremia. He has been nothing by mouth, no nutrition since admission. We will inquire with GI service whether tube feedings can be started. Lung sounds are clear. Microbiology data has been reviewed, showing blood, urine and sputum cultures are no growth so far, final cultures are pending. Better coverage in the form of Rocephin and Flagyl. On 10/03/2018 patient seen in follow-up in the intensive care unit, he remains sedated, intubated on mechanical ventilator, current vent settings are assist- control mode of ventilation with a rate of 12, tidal 400, FiO2 of 30% and PEEP of 5. This morning his blood gases showed pO2 of 94, pCO2 34, pH of 7.45. IV fluids D5W at a rate of 75 ML per hour, TPN is a 30 ML per hour, and propofol is at 30 mics per kilo per minute. This morning's lab work has been reviewed, showing white blood cell count of 5.0, hemoglobin of 6.8, patient was given a unit of blood, sodium is 140, potassium is 4.1, chloride is 116, CO2 is 22, BUN is 23, creatinine is 0.59. Ammonia level is down to 28, yesterday we decreased the lactulose to once daily, she patient was given a daily traction of sedation, did not become fully awake, or following commands, did become quite asynchronous and tachypneic, and had to be re-sedated. Today's chest x-ray has been reviewed, showing stable changes of COPD without acute process. Patient is afebrile, blood urine and sputum cultures are negative. Some liquid dark green output, with no visible blood in the stool. She remains on Rocephin and Flagyl for antibiotic coverage. TPN is at 30 ML per hour per GI service recommendations. On 10/04/2018 patient seen in follow-up in the intensive care unit, he remains sedated, intubated on mechanical ventilator, this morning's blood gases showed a pO2 of 75, pCO2 35, and pH of 7.45, this was done on assist control mode of ventilation with a rate of 12, tidal vital 400, FiO2 30% and PEEP of 5. This morning chest x-rays has been reviewed, showing stable changes of COPD without acute process and small left pleural effusion. Yesterday patient was given the daily traction of sedation, he started moving his extremities, however he did not open his eyes and follow commands, brain CT was obtained and showed no acute intracranial abnormality. Patient was placed on the PSV 5 and pressure-support of 5 yesterday and did sustain an for 4 hours, and then placed back on assist control mode of ventilation for the night. This morning he was placed back on pressure-support of 8, with the CPAP of 5, he is tolerating it well so far. Sedation is on hold, this morning blood work was reviewed, showing white blood cell count of 5.7, hemoglobin of 7.3, serum sodium is 137, potassium is 4.2, chloride is 112, CO2 is 23, BUN is 19, creatinine 0.53. Afebrile, vital signs are stable, microbiology data has been reviewed, showing only Lisa albicans in the sputum culture, patient has been on empiric antibiotics in the form of Rocephin and Flagyl, will discontinue them. Remains on TPN at 79 per hour, and D5W at a rate of 75 ML per hour. The patient is seen today 10/05/2018 in follow-up in the intensive care unit. He remains intubated sedated on the mechanical ventilator at a pressure support of 8 and CPAP of 5 with 40% FiO2. Morning blood gases reveal pO2 of 107, pCO2 34, pH 7.48. Chest x-ray shows continued left basilar airspace disease and small effusion. He remains nourished with TPN at 70 ML's per hour. He remains off sedation. He is not waking up. No response to loud verbal stimuli, painful stimuli. No purposeful movements. Computed tomography scan of the brain revealed no acute abnormalities. He is status post a total of 3 units of packed red blood cells this admission. Today's hemoglobin 7.2. Platelet count 106,000. White count 6.3. Creatinine 0.54. LFTs normal. Blood culture reveals no growth, urine culture reveals no growth. Sputum culture with Lisa. Objective - Vital Signs Vital signs: Vital Signs Temp 99.3 F 10/05/18 06:00 Pulse 90 10/05/18 07:57 Resp 16 10/05/18 07:00 BP 110/56 10/05/18 07:00 Pulse Ox 97 10/05/18 07:00 Intake & Output 10/04/18 10/05/18 10/05/18 18:59 06:59 18:59 Intake Total 2588.365 2155 1279.5 Output Total 1625 965 270 Balance 358.975 5683 1009.5 Weight 83.7 kg 83.2 kg Intake: IV 1505 915 340 Dextrose 5% in Water 1, 225 000 ml @ 75 mls/hr IV . [id number] [facility] Rx#:[id number] Mvi, Adult No.4 with Vit 880 715 260 K 10 ml Trace (Conc-1Ml/ Dose) 1 ml Potassium Acetate 10 meq In Amino Acid 5%-D15w+Lytes*E* 1, 000 ml @ 65 mls/hr IV .BY DURATION [facility] Rx#: [id number] Sodium Chloride 0.9% 1, 200 200 80 000 ml @ 20 mls/hr IV . Q24H [facility] Rx#:[id number] cefTRIAXone 1 gm In 100 Sodium Chloride 0.9% 50 ml @ 100 mls/hr IVPB Q24HR [facility] Rx#:[id number] metroNIDAZOLE-NS PMX 500 100 mg In Saline 1 100ml.bag @ 100 mls/hr IVPB Q8HR [facility] Rx#:[id number] Intake, IV Titration 3839.769 8615 929.5 Amount Potassium Acetate 10 meq 1005.000 929.5 In Amino Acid 5%-D15w+ Lytes*E* 1,000 ml @ 65 mls/hr IV .BY DURATION [facility] Rx#:[id number] Propofol 1,000 mg In 68.365 Empty Bag 1 bag @ Titrate IV .Q0M [facility] Rx#: [id number] Sodium Chloride 0.9% 1, 1000 000 ml @ 999 mls/hr IV . Q1H1M [facility] Rx#:[id number] Tube Feeding 10 150 10 Other 90 Output: Urine 625 965 270 Stool 1000 Other: Voiding Method Indwelling Catheter Indwelling Catheter - Exam GENERAL EXAM: Unresponsive 62-year-old white male, intubated. On pressure- support of 8 and CPAP of 5, 40% FiO2 HEAD: Normocephalic/atraumatic. EYES: Normal reaction of pupils, equal size. Conjunctiva pink, sclera white. NOSE: Clear with pink turbinates. THROAT: No erythema or exudates. NECK: No masses, no JVD, no thyroid enlargement, no adenopathy. CHEST: No chest wall deformity. Symmetrical expansion. LUNGS: Equal air entry with no crackles, wheeze, rhonchi or dullness. CVS: Regular rate and rhythm, normal S1 and S2, no gallops, no murmurs, no rubs ABDOMEN: Soft, nontender. No hepatosplenomegaly, normal bowel sounds, no guarding or rigidity. EXTREMITIES: No clubbing, no edema, no cyanosis, 2+ pulses and upper and lower extremities. MUSCULOSKELETAL: Muscle strength and tone normal. SPINE: No scoliosis or deformity SKIN: No rashes CENTRAL NERVOUS SYSTEM: Unresponsive, tone is normal in all 4 extremities. PSYCHIATRIC: Unable to assess, patient is unresponsive, intubated - Labs CBC & Chem 7: 10/05/18 04:40 10/05/18 04:40 Labs: Abnormal Lab Results - Last 24 Hours (Table) 10/04/18 10/04/18 10/05/18 Range/Units 11:53 18:07 04:40 RBC (4.30-5.90) m/uL Hgb (13.0-17.5) gm/dL Hct (39.0-53.0) % MCV (80.0-100.0) fL RDW (11.5-15.5) % Plt Count (150-450) k/uL ABG pH (7.35-7.45) ABG pCO2 (35-45) mmHg ABG Total CO2 (19-24) mmol/L ABG O2 Saturation (94-97) % Chloride 114 H (98-107) mmol/L BUN 22 H (9-20) mg/dL Creatinine 0.54 L (0.66-1.25) mg/dL Glucose 101 H (74-99) mg/dL POC Glucose (mg/dL) 119 H 111 H (75-99) mg/dL Calcium 7.2 L (8.4-10.2) mg/dL Total Protein 4.2 L (6.3-8.2) g/dL Albumin 1.5 L (3.5-5.0) g/dL 10/05/18 10/05/18 10/05/18 Range/Units 04:40 04:54 05:42 RBC 2.23 L (4.30-5.90) m/uL Hgb 7.2 L (13.0-17.5) gm/dL Hct 22.6 L (39.0-53.0) % MCV 101.5 H (80.0-100.0) fL RDW 16.5 H (11.5-15.5) % Plt Count 106 L (150-450) k/uL ABG pH 7.48 H (7.35-7.45) ABG pCO2 34 L (35-45) mmHg ABG Total CO2 26 H (19-24) mmol/L ABG O2 Saturation 98.8 H (94-97) % Chloride (98-107) mmol/L BUN (9-20) mg/dL Creatinine (0.66-1.25) mg/dL Glucose (74-99) mg/dL POC Glucose (mg/dL) 132 H (75-99) mg/dL Calcium (8.4-10.2) mg/dL Total Protein (6.3-8.2) g/dL Albumin (3.5-5.0) g/dL Microbiology - Last 24 Hours (Table) 09/29/18 18:09 Blood Culture - Preliminary Blood No Growth after 120 hours Assessment and Plan Assessment: Assessment: Acute GI bleeding in a patient with known history of alcoholism, differential diagnoses includes peptic ulcer disease, esophageal varices, erosive gastritis, and even possibly diverticular disease/diverticulosis. He underwent EGD on 09/30/2018 was found to have a duodenal ulcer which was injected with epinephrine, but could not be clipped. Current hemoglobin 7.2. Acute hepatic encephalopathy with significantly elevated ammonia level secondary to underlying alcohol related liver disease. Ammonia level was 28 on 10/03/2018 history of underlying COPD, patient is now on bronchodilators in the form of DuoNeb. Presently his COPD is inactive. Benign essential hypertension Degenerative joint disease History of alcohol abuse Volume contraction alkalosis Hyponatremia and hyperchloremia related to free water deficit and infusion of 0.9 normal saline, corrected Plan: The patient was seen and evaluated by Dr. Valero. Chest x-ray, ABGs and labs all reviewed. The patient remains unresponsive to loud verbal, tactile or painful stimuli. Does not open eyes or follow any commands. He is comfortable on pressure support of 8 and a CPAP of 5 and 40% FiO2. CAT scan of the brain revealed no acute abnormalities. Ammonia level corrected. If no significant improvement in the next 24 hours he'll most likely need a trach and PEG. We'll continue with the current treatment plan for now. We'll continue to follow make further recommendations based on his clinical status. Critical care time 38 minutes. I, the cosigning physician, performed a history & physical examination of the patient. Lungs sounds with crackles in the left base. Maintaining good O2 saturations in the 90s on 40% FiO2. Intubated on pressure support of 8 and a PEEP of 5. I discussed the assessment and plan of care with my nurse practitioner, Lucia Roman. I attest to the above note as dictated by her. Time with Patient: Greater than 30
[2018-10-05 12:06] LABS: Glucose,Whole Blood 125 mg/dL (75-99)
[2018-10-05] MEDS: SODIUM CHLORIDE 0.9% 1,000 ML IV SCH (17:20)
[2018-10-05 18:18] LABS: Glucose,Whole Blood 121 mg/dL (75-99)
[2018-10-05 23:50] LABS: Glucose,Whole Blood 125 mg/dL (75-99)
[2018-10-06] MEDS: IPRATROPIUM-ALBUTEROL 3 ML NEB INHALATION SCH ×6 (00:05→19:22)
--- NOTE | 2018-10-06 00:10 | P.PN ---
Subjective Progress Note Date: 10/04/18 Principal diagnosis: GI bleed Duodenal ulcer JAG is a 62-year-old male who presented to the ER today with 1 day history of for large bloody bowel movements.this was associated with nausea and vomiting, he vomited some dark-looking material. Status post EGD and showed duodenal ulcer. 10/02/2018 Patient is currently is in the intensive care unit. Mechanical ventilator. AC 400 with FiO2 30% and PEEP of 5. Hemoglobin is 7.6 morning. Fecal collecting system showing some darker stool. NG tube suction showing minimal fluid. Chest x-ray showed no acute pulmonary process. Sodium is 147. Cultures showed no growth so far. Patient is being continued on D5 water. Currently on antibiotics in the form ceftriaxone and Flagyl. Pulmonary, ID and GI is following. 10.03 Patient is currently on mechanical ventilator. No fever no chills. Cultures have been negative. Hemoglobin came down to 6.8 today. 1 unit of PRBC was ordered. Patient is being continued on IV fluids and empiric antibiotics. Chest x-ray showed stable findings of COPD. Fecal collecting system showing green colored stool. No evidence of blood noted. Patient is on currently TPN. Renal function is stable. Pulmonary and GI is following. 10/04/2018 Patient is currently off sedation and on CPAP ventilation. Patient does not respond with verbal stimuli. CT head was done. Patient does have green colored stools. Hemoglobin is otherwise stable at 7.3. No output from the OG tube.. Gastroenterology is following. Current medications reviewed. Objective - Vital Signs Vital signs: Vital Signs Temp 99.1 F 10/04/18 16:00 Pulse 110 H 10/04/18 20:10 Resp 22 10/04/18 19:00 BP 129/70 10/04/18 19:00 Pulse Ox 95 10/04/18 19:00 Intake & Output 10/04/18 10/04/18 10/05/18 06:59 18:59 06:59 Intake Total 2006.321 2588.365 Output Total 575 1625 Balance 1432.321 963.365 Weight 83.7 kg 83.7 kg Intake: IV 1740 1505 Dextrose 5% in Water 1, 900 225 000 ml @ 75 mls/hr IV . [id number] [facility] Rx#:[id number] Mvi, Adult No.4 with Vit 840 880 K 10 ml Trace (Conc-1Ml/ Dose) 1 ml Potassium Acetate 10 meq In Amino Acid 5%-D15w+Lytes*E* 1, 000 ml @ 65 mls/hr IV .BY DURATION [facility] Rx#: [id number] Sodium Chloride 0.9% 1, 200 000 ml @ 20 mls/hr IV . Q24H [facility] Rx#:[id number] cefTRIAXone 1 gm In 100 Sodium Chloride 0.9% 50 ml @ 100 mls/hr IVPB Q24HR [facility] Rx#:[id number] metroNIDAZOLE-NS PMX 500 100 mg In Saline 1 100ml.bag @ 100 mls/hr IVPB Q8HR [facility] Rx#:[id number] Intake, IV Titration 937.078 5000.365 Amount Potassium Acetate 10 meq 1005.000 In Amino Acid 5%-D15w+ Lytes*E* 1,000 ml @ 65 mls/hr IV .BY DURATION [facility] Rx#:[id number] Propofol 1,000 mg In 167.321 68.365 Empty Bag 1 bag @ Titrate IV .Q0M [facility] Rx#: [id number] metroNIDAZOLE-NS PMX 500 100 mg In Saline 1 100ml.bag @ 100 mls/hr IVPB Q8HR [facility] Rx#:[id number] Tube Feeding 10 Output: Urine 575 625 Stool 1000 Other: Voiding Method Indwelling Catheter Indwelling Catheter - Exam General appearance: The patient is sedated and intubated HEENT: Head is normocephalic and atraumatic. Pupils are equal and reactive. The nares are patent. Oropharynx is clear without lesions. Orogastric tube without bleeding. Neck: Supple without lymphadenopathy. Trachea midline. Heart: S1 S2. Regular rate and rhythm. Lungs: No crackles or wheezes are heard. Abdomen: Soft, nontender, nondistended with good bowel sounds. No peritoneal signs. No palpable organomegaly or masses. Extremities: Normal skin color and turgor. No cyanosis, rash, ulceration, clubbing, or edema. Pulses palpable bilaterally. Lim clear kylee urine. Fecal management system green dark black stool. Neurological: Cannot be assessed at this time since the patient is intubated and sedated. - Labs CBC & Chem 7: 10/05/18 04:40 10/05/18 04:40 Labs: Abnormal Lab Results - Last 24 Hours (Table) 10/04/18 10/04/18 10/04/18 Range/Units 00:24 04:17 05:51 RBC (4.30-5.90) m/uL Hgb (13.0-17.5) gm/dL Hct (39.0-53.0) % MCV (80.0-100.0) fL MCHC (31.0-37.0) g/dL RDW (11.5-15.5) % Plt Count (150-450) k/uL ABG pO2 75 L (83-108) mmHg ABG Total CO2 25 H (19-24) mmol/L Chloride 112 H (98-107) mmol/L Creatinine 0.53 L (0.66-1.25) mg/dL Glucose 124 H (74-99) mg/dL POC Glucose (mg/dL) 131 H (75-99) mg/dL Calcium 7.2 L (8.4-10.2) mg/dL Total Protein 4.4 L (6.3-8.2) g/dL Albumin 1.6 L (3.5-5.0) g/dL 10/04/18 10/04/18 10/04/18 Range/Units 05:51 06:13 11:53 RBC 2.34 L (4.30-5.90) m/uL Hgb 7.3 L (13.0-17.5) gm/dL Hct 23.8 L (39.0-53.0) % MCV 101.7 H (80.0-100.0) fL MCHC 30.8 L (31.0-37.0) g/dL RDW 17.0 H (11.5-15.5) % Plt Count 106 L (150-450) k/uL ABG pO2 (83-108) mmHg ABG Total CO2 (19-24) mmol/L Chloride (98-107) mmol/L Creatinine (0.66-1.25) mg/dL Glucose (74-99) mg/dL POC Glucose (mg/dL) 139 H 119 H (75-99) mg/dL Calcium (8.4-10.2) mg/dL Total Protein (6.3-8.2) g/dL Albumin (3.5-5.0) g/dL 10/04/18 Range/Units 18:07 RBC (4.30-5.90) m/uL Hgb (13.0-17.5) gm/dL Hct (39.0-53.0) % MCV (80.0-100.0) fL MCHC (31.0-37.0) g/dL RDW (11.5-15.5) % Plt Count (150-450) k/uL ABG pO2 (83-108) mmHg ABG Total CO2 (19-24) mmol/L Chloride (98-107) mmol/L Creatinine (0.66-1.25) mg/dL Glucose (74-99) mg/dL POC Glucose (mg/dL) 111 H (75-99) mg/dL Calcium (8.4-10.2) mg/dL Total Protein (6.3-8.2) g/dL Albumin (3.5-5.0) g/dL Microbiology - Last 24 Hours (Table) 09/29/18 18:09 Blood Culture - Preliminary Blood No Growth after 120 hours Assessment and Plan Assessment: Upper gastrointestinal bleed with duodenal ulcer Anemia secondary to acute GI bleed Acute blood loss anemia Possible aspiration pneumonia Altered mental status metabolic encephalopathy related to hepatic encephalopathy elevated ammonia level history of alcohol abuse Gallbladder mass was attempting to have patient have consult with Dr. Teresa in [facility] Leukocytosis History of COPD GERD Plan Patient is on mechanical ventilator. Pulmonary is on board. Hemoglobin is 9.3 today. Follow-up H&H and transfuse as needed.. GI is on board. On antibiotics for possible aspiration pneumonia. Long-term patient needs to see Dr. Teresa in [facility] for gallbladder mass. Further recommendations based on the clinical course. Prognosis is guarded. Time with Patient: Greater than 30
--- NOTE | 2018-10-06 00:16 | P.PN ---
Subjective Progress Note Date: 10/05/18 Principal diagnosis: GI bleed Duodenal ulcer JAG is a 62-year-old male who presented to the ER today with 1 day history of for large bloody bowel movements.this was associated with nausea and vomiting, he vomited some dark-looking material. Status post EGD and showed duodenal ulcer. 10/02/2018 Patient is currently is in the intensive care unit. Mechanical ventilator. AC 400 with FiO2 30% and PEEP of 5. Hemoglobin is 7.6 morning. Fecal collecting system showing some darker stool. NG tube suction showing minimal fluid. Chest x-ray showed no acute pulmonary process. Sodium is 147. Cultures showed no growth so far. Patient is being continued on D5 water. Currently on antibiotics in the form ceftriaxone and Flagyl. Pulmonary, ID and GI is following. 10.03 Patient is currently on mechanical ventilator. No fever no chills. Cultures have been negative. Hemoglobin came down to 6.8 today. 1 unit of PRBC was ordered. Patient is being continued on IV fluids and empiric antibiotics. Chest x-ray showed stable findings of COPD. Fecal collecting system showing green colored stool. No evidence of blood noted. Patient is on currently TPN. Renal function is stable. Pulmonary and GI is following. 10/04/2018 Patient is currently off sedation and on CPAP ventilation. Patient does not respond with verbal stimuli. CT head was done. Patient does have green colored stools. Hemoglobin is otherwise stable at 7.3. No output from the OG tube.. Gastroenterology is following. 10/05/2018 Patient is is still intubated and on the mechanical ventilator with pressure support/CPAP. Hemoglobin is 7.2 today. Fecal management system showing still green colored stool. Currently on TPN and NG tube feedings will be started. Patient is otherwise nonverbal at this time. Does not respond to the verbal CT head showed no acute intracranial process. Blood cultures and urine culture showed no growth. Sputum cultures grew Lisa. Discontinued all antibiotics. Current medications reviewed. Objective - Vital Signs Vital signs: Vital Signs Temp 99.6 F 10/05/18 21:00 Pulse 93 10/05/18 22:00 Resp 23 10/05/18 22:00 BP 127/62 10/05/18 22:00 Pulse Ox 96 10/05/18 22:00 Intake & Output 10/05/18 10/05/18 10/06/18 06:59 18:59 06:59 Intake Total 2155 1989.5 480 Output Total 965 770 285 Balance 1190 1219.5 195 Weight 83.2 kg 83.2 kg Intake: IV 915 1000 330 Mvi, Adult No.4 with Vit 715 780 260 K 10 ml Trace (Conc-1Ml/ Dose) 1 ml Potassium Acetate 10 meq In Amino Acid 5%-D15w+Lytes*E* 1, 000 ml @ 65 mls/hr IV .BY DURATION [facility] Rx#: [id number] Sodium Chloride 0.9% 1, 200 220 70 000 ml @ 20 mls/hr IV . Q24H [facility] Rx#:[id number] Intake, IV Titration 1000 949.5 Amount Potassium Acetate 10 meq 929.5 In Amino Acid 5%-D15w+ Lytes*E* 1,000 ml @ 65 mls/hr IV .BY DURATION [facility] Rx#:[id number] Sodium Chloride 0.9% 1, 20 000 ml @ 20 mls/hr IV . Q24H [facility] Rx#:[id number] Sodium Chloride 0.9% 1, 1000 000 ml @ 999 mls/hr IV . Q1H1M ONE Rx#:[id number] Tube Feeding 150 40 150 Other 90 Output: Urine 965 770 285 Other: Voiding Method Indwelling Catheter Indwelling Catheter Indwelling Catheter - Exam General appearance: The patient is sedated and intubated HEENT: Head is normocephalic and atraumatic. Pupils are equal and reactive. The nares are patent. Oropharynx is clear without lesions. Orogastric tube without bleeding. Neck: Supple without lymphadenopathy. Trachea midline. Heart: S1 S2. Regular rate and rhythm. Lungs: No crackles or wheezes are heard. Abdomen: Soft, nontender, nondistended with good bowel sounds. No peritoneal signs. No palpable organomegaly or masses. Extremities: Normal skin color and turgor. No cyanosis, rash, ulceration, clubbing, or edema. Pulses palpable bilaterally. Lim clear kylee urine. Fecal management system green dark black stool. Neurological: Cannot be assessed at this time since the patient is intubated and sedated. - Labs CBC & Chem 7: 10/05/18 04:40 10/05/18 04:40 Labs: Abnormal Lab Results - Last 24 Hours (Table) 10/05/18 10/05/18 10/05/18 Range/Units 04:40 04:40 04:54 RBC 2.23 L (4.30-5.90) m/uL Hgb 7.2 L (13.0-17.5) gm/dL Hct 22.6 L (39.0-53.0) % MCV 101.5 H (80.0-100.0) fL RDW 16.5 H (11.5-15.5) % Plt Count 106 L (150-450) k/uL ABG pH 7.48 H (7.35-7.45) ABG pCO2 34 L (35-45) mmHg ABG Total CO2 26 H (19-24) mmol/L ABG O2 Saturation 98.8 H (94-97) % Chloride 114 H (98-107) mmol/L BUN 22 H (9-20) mg/dL Creatinine 0.54 L (0.66-1.25) mg/dL Glucose 101 H (74-99) mg/dL POC Glucose (mg/dL) (75-99) mg/dL Calcium 7.2 L (8.4-10.2) mg/dL Total Protein 4.2 L (6.3-8.2) g/dL Albumin 1.5 L (3.5-5.0) g/dL 10/05/18 10/05/18 10/05/18 Range/Units 05:42 12:00 18:07 RBC (4.30-5.90) m/uL Hgb (13.0-17.5) gm/dL Hct (39.0-53.0) % MCV (80.0-100.0) fL RDW (11.5-15.5) % Plt Count (150-450) k/uL ABG pH (7.35-7.45) ABG pCO2 (35-45) mmHg ABG Total CO2 (19-24) mmol/L ABG O2 Saturation (94-97) % Chloride (98-107) mmol/L BUN (9-20) mg/dL Creatinine (0.66-1.25) mg/dL Glucose (74-99) mg/dL POC Glucose (mg/dL) 132 H 125 H 121 H (75-99) mg/dL Calcium (8.4-10.2) mg/dL Total Protein (6.3-8.2) g/dL Albumin (3.5-5.0) g/dL Microbiology - Last 24 Hours (Table) 09/29/18 18:09 Blood Culture - Final Blood No Growth after 144 hours Assessment and Plan Assessment: Upper gastrointestinal bleed with duodenal ulcer Anemia secondary to acute GI bleed Acute blood loss anemia Possible aspiration pneumonia Altered mental status metabolic encephalopathy related to hepatic encephalopathy elevated ammonia level history of alcohol abuse. ammonia level normalized. Gallbladder mass was attempting to have patient have consult with Dr. Teresa in [facility] Leukocytosis History of COPD GERD Plan Patient is on mechanical ventilator. Pulmonary is on board. Hemoglobin is 9.3 today. Follow-up H&H and transfuse as needed.. GI is on board. Discontinued antibiotics. Cultures have been negative. Long-term patient needs to see Dr. Teresa in [facility] for gallbladder mass. Further recommendations based on the clinical course. Prognosis is guarded. Time with Patient: Greater than 30
[2018-10-06] MEDS: 1: MVI, ADULT NO.4 WITH VIT K 10 ML, TRACE (CONC-1ML/DOSE) 1 ML, POTASSIUM ACETATE 10 ME IV SCH ×8 (01:37→03:15)
[2018-10-06 04:59] LABS: ABG Base Excess 1.6 mmol/L; ABG HCO3 26 mmol/L (21-25); ABG Oxygen Saturation 99.4 % (94-97); ABG PCO2 36 mmHg (35-45); ABG PH 7.46 (7.35-7.45); ABG PO2 121 mmHg (83-108); ABG TCO2 27 mmol/L (19-24); Allen Test Performed? Yes
[2018-10-06 05:35] LABS: Anisocytosis Slight; HCT 22.1 % (39.0-53.0); Hypochromasia Moderate; MCH 31.5 pg (25.0-35.0); MCHC 31.3 g/dL (31.0-37.0); MCV 100.6 fL (80.0-100.0); Macrocytosis Slight; Mean Platelet Volume 7.7; Platelet Count 105 k/uL (150-450); Poikilocytosis Slight; RDW 16.4 % (11.5-15.5); WBC 5.4 k/uL (3.8-10.6)
[2018-10-06 05:46] LABS: African American GFR (CKD) >90 (>60 ml/min/1.73 sqM); Anion Gap 0 mmol/L; Blood Urea Nitrogen 21 mg/dL (9-20); Calcium 7.3 mg/dL (8.4-10.2); Carbon Dioxide 26 mmol/L (22-30); Chloride 114 mmol/L (98-107); Glucose 114 mg/dL (74-99); Magnesium 2.1 mg/dL (1.6-2.3); Phosphorus 2.8 mg/dL (2.5-4.5); Potassium 3.8 mmol/L (3.5-5.1); Sodium 140 mmol/L (137-145)
[2018-10-06 05:59] LABS: HGB 6.9 gm/dL (13.0-17.5)
--- NOTE | 2018-10-06 06:10 | XR ---
EXAMINATION TYPE: XR chest 1V DATE OF EXAM: 10/06/2018 HISTORY: Mech vent. REFERENCE: Previous study dated 10/05/2018. FINDINGS: The patient is ET tube and NG tube remain in place, unchanged in appearance. There is a lef t basilic PICC line in place. Its tip is in the superior vena cava. Heart size upper limits of normal. Lung volumes are prominent. There is bibasilar airspace disease. I suspect small effusions. IMPRESSION: 1. COPD. 2. BIBASILAR AIRSPACE DISEASE. 3. BORDERLINE CARDIOMEGALY. 4. SMALL, BILATERAL EFFUSIONS.
[2018-10-06 06:17] LABS: Glucose,Whole Blood 134 mg/dL (75-99)
--- NOTE | 2018-10-06 09:56 | P.PN ---
Subjective Progress Note Date: 10/06/18 Principal diagnosis: Acute GI bleeding this is a 62-year-old white male who presented to the ER today with 1 day history of for large bloody bowel movements.this was associated with nausea and vomiting, he vomited some dark-looking material. Denied any hematemesis. Denied any melena. Apparently the patient was recently at [facility] for abdominal pain, exact workup is not clear at the time of this dictation, but he was discharged out of [place] about 2 days ago. Since discharge, the patient has been feeling rundown and fatigued.on admission his initial hemoglobin was 8.8, since then patient had further episodes of bright red blood per rectum and bloody bowel movements, follow-up hemoglobin is 7.3, patient will be receiving blood transfusion, and arrangements were made for the patient to be admitted to the ICU.the patient himself is a very poor historian, apparently when he arrived he was extremely agitated, he is known to have history of alcohol abuse, hence he was given Ativan and he was placed on the C1wa protocol.during my evaluation, the patient was noted to be sedated, calm, cannot give much history, quite lethargic, arousable but easily gets agitated. Apparently his ammonia level was high, hence I recommended nasogastric tube to be placed and to start lactulose. As the patient may have obviously hepatic encephalopathy.lactic acid on admi ssion was 4.3, hence fluid boluses were given. Patient is not requiring any pressors, and he seems to be hemodynamically stable at this point.patient is also known to have history of COPD, mild clubbing noted on physical examination, hence he was placed on DuoNeb updrafts 4 times a day and when necessary. Patient was also placed on Rocephin for his presentation of hepatic encephalopathy and hyperammonemia. On 09/30/2018 patient seen in follow-up in the intensive care unit. Patient is on mechanical ventilator, sedated, and ventilating's are assist-control mode of ventilation with a rate of 12, tidal and 400, FiO2 of 40% and PEEP of 5, this morning his blood gases showed pO2 of 133, pCO2 33, and pH of 7.39, this was done on FiO2 of 50%, FiO2 had since been dropped down to 40%. IVs include 0.9 normal saline at a rate of 75 ML per hour, Diprivan and is at 50 mics per kilo per minute. Patient received 2 units of packed red blood cells for hemoglobin of 7.3, this morning hemoglobin is 8.4, with blood cell count is 10.7, platelet count is 159, and sodium is 142, potassium is 4.5, chloride is 118, CO2 17, BUN is 44, creatinine 0.87, urinalysis was clear, no signs of infection, drug screen was positive for opiates and benzodiazepines. Patient has been afebrile, was dynamically stable, his chest x-ray has been reviewed, showing COPD and newly developing infiltrate in the right upper lobe. Antibiotic coverage in the form of Rocephin. Blood cultures are pending, sputum culture will be sent. he is receiving lactulose per OG tube, and ammonia level is down to 64 on today's labs . We'll catheter is in, and patient is nonoliguric. Lung sounds are clear. On 10/01/2018 patient seen in follow-up in the intensive care unit, he remains sedated, and intubated, on mechanical ventilator. Yesterday patient underwent EGD, and was found to have a duodenal ulcer, which could not be clipped related to its location. Was injected with epinephrine. Today's labs have been reviewed, showing white blood cell count of 7.7, hemoglobin is 7.4, serum sodium is 142, potassium 3.9, chloride is 120, CO2 is 18, B1 is 36, creatinine 0.84. She received 2 units of packed red blood cells this admission. FMS system is in place, draining liquid melanotic stool. Hemodynamic patient is stable, heart rate is controlled. Lung sounds are clear, patient's comfortable on the ventilator, currently on assist control mode of ventilation with a rate of 12, tidal volume 400, FiO2 of 40%, and PEEP of 5, this morning his blood gases were reviewed, showing pO2 of 132, pCO2 of 31, pH of 7.40, and FiO2 was dropped down to 30%. Currently on IVs including 0.9 normal saline at 75 ML per hour, propof ol is at 50 mics per kilo per minute. No tube feedings right now. We'll proceed with sedation holiday today, to assess mentation, and likely proceed with weaning trials, with pressure support of 5, and CPAP of 5. Chest x-ray has been reviewed, showing chronic changes, without acute pulmonary disease. On 10/02/2018 patient seen in follow-up in the intensive care unit. Patient has been off sedation since this morning, but remains very sedated. Intubated on mechanical ventilator, on assist control mode of ventilation with a rate of 12, tidal vital 400, FiO2 30% and PEEP of 5. This morning blood gases were reviewed, showing a pO2 of 64, pCO2 46, and pH of 7.36. Chest x-ray this morning showed no acute pulmonary process, lungs are clear, ET-tube and a NG- tube in the appropriate positions. No acute events overnight, yesterday patient was given sedation holiday, however he never did fully wake up and follow commands, and in the evening became quite tachypneic and was placed back on s edation. IV 0.9 normal saline at a rate of 75 ML per hour, no other drips, this morning's blood work has been reviewed, showing white blood cell count is 6.9, hemoglobin of 7.3, the patient has a fecal management system in place, and he is putting out liquid melanotic stool. Receiving lactulose, he did produce 1100 mL of liquid stool in the last 24 hours. He is developing fluid volume contraction alkalosis and hypernatremia. He has been nothing by mouth, no nutrition since admission. We will inquire with GI service whether tube feedings can be started. Lung sounds are clear. Microbiology data has been reviewed, showing blood, urine and sputum cultures are no growth so far, final cultures are pending. Better coverage in the form of Rocephin and Flagyl. On 10/03/2018 patient seen in follow-up in the intensive care unit, he remains sedated, intubated on mechanical ventilator, current vent settings are assist- control mode of ventilation with a rate of 12, tidal 400, FiO2 of 30% and PEEP of 5. This morning his blood gases showed pO2 of 94, pCO2 34, pH of 7.45. IV fluids D5W at a rate of 75 ML per hour, TPN is a 30 ML per hour, and propofol is at 30 mics per kilo per minute. This morning's lab work has been reviewed, showing white blood cell count of 5.0, hemoglobin of 6.8, patient was given a unit of blood, sodium is 140, potassium is 4.1, chloride is 116, CO2 is 22, BUN is 23, creatinine is 0.59. Ammonia level is down to 28, yesterday we decreased the lactulose to once daily, she patient was given a daily traction of sedation, did not become fully awake, or following commands, did become quite asynchronous and tachypneic, and had to be re-sedated. Today's chest x-ray has been reviewed, showing stable changes of COPD without acute process. Patient is afebrile, blood urine and sputum cultures are negative. Some liquid dark green output, with no visible blood in the stool. She remains on Rocephin and Flagyl for antibiotic coverage. TPN is at 30 ML per hour per GI service recommendations. On 10/04/2018 patient seen in follow-up in the intensive care unit, he remains sedated, intubated on mechanical ventilator, this morning's blood gases showed a pO2 of 75, pCO2 35, and pH of 7.45, this was done on assist control mode of ventilation with a rate of 12, tidal vital 400, FiO2 30% and PEEP of 5. This morning chest x-rays has been reviewed, showing stable changes of COPD without acute process and small left pleural effusion. Yesterday patient was given the daily traction of sedation, he started moving his extremities, however he did not open his eyes and follow commands, brain CT was obtained and showed no acute intracranial abnormality. Patient was placed on the PSV 5 and pressure-support of 5 yesterday and did sustain an for 4 hours, and then placed back on assist control mode of ventilation for the night. This morning he was placed back on pressure-support of 8, with the CPAP of 5, he is tolerating it well so far. Sedation is on hold, this morning blood work was reviewed, showing white blood cell count of 5.7, hemoglobin of 7.3, serum sodium is 137, potassium is 4.2, chloride is 112, CO2 is 23, BUN is 19, creatinine 0.53. Afebrile, vital signs are stable, microbiology data has been reviewed, showing only Lisa albicans in the sputum culture, patient has been on empiric antibiotics in the form of Rocephin and Flagyl, will discontinue them. Remains on TPN at 79 per hour, and D5W at a rate of 75 ML per hour. On 10/06/2018 patient name in follow-up in the intensive care unit. Patient has been on pressure-support of 8 and CPAP of 5 and FiO2 of 40% for last 48 hours, has tolerated very well. We were just waiting for the patient to become more awake, patient will not open his eyes, but he is moving his upper extremities, and he is at times following simple commands, clapping his hands in response to Dr. Valero clapping his hands with the patient. This might blood gases were reviewed, showing pO2 of 121, pCO2 of 36, and pH of 7.46, white blood cell count was 5.4, hemoglobin is 6.9, and patient will receive a unit of packed red blood cells, platelet count is 105, serum sodium is 140, potassium is 3.8, chloride is 114, CO2 is 26, B1 is 21, creatinine 0.49. Patient has been on TPN, patient has also been started on tube feedings. Which we will hold today, sounds are clear, today's chest x-ray has been reviewed, chest x-ray showed bibasilar airspace disease and small pleural effusions. No fever or chills, vital signs are stable, data has been reviewed, showing sputum culture with Lisa albicans only. CT has shown no intracranial process, patient remains on lactulose at 20 mg daily. Fecal management system is draining greenish colored liquid output. No visible blood. She remains on PPI therapy at 40 mg twice daily. Objective - Vital Signs Vital signs: Vital Signs Temp 99.8 F H 10/06/18 04:00 Pulse 98 10/06/18 09:00 Resp 23 10/06/18 09:00 BP 122/66 10/06/18 09:00 Pulse Ox 92 L 10/06/18 09:00 Intake & Output 10/05/18 10/06/18 10/06/18 18:59 06:59 18:59 Intake Total 1989.5 2615 385 Output Total 770 860 220 Balance 1219.5 1755 165 Weight 83.2 kg 81.7 kg Intake: IV 1000 990 255 Mvi, Adult No.4 with Vit 780 780 195 K 10 ml Trace (Conc-1Ml/ Dose) 1 ml Potassium Acetate 10 meq In Amino Acid 5%-D15w+Lytes*E* 1, 000 ml @ 65 mls/hr IV .BY DURATION [facility] Rx#: [id number] Sodium Chloride 0.9% 1, 220 210 60 000 ml @ 20 mls/hr IV . Q24H [facility] Rx#:[id number] Intake, IV Titration 949.5 1005 Amount Potassium Acetate 10 meq 929.5 1005 In Amino Acid 5%-D15w+ Lytes*E* 1,000 ml @ 65 mls/hr IV .BY DURATION [facility] Rx#:[id number] Sodium Chloride 0.9% 1, 20 000 ml @ 20 mls/hr IV . Q24H [facility] Rx#:[id number] Tube Feeding 40 560 100 Other 60 30 Output: Urine 770 860 220 Other: Voiding Method Indwelling Catheter Indwelling Catheter - Exam GENERAL EXAM: Sedated, 62-year-old white male, intubated comfortable in no apparent distress. On pressure-support mode of ventilation with the pressure- support of 8 and CPAP of 5, living and well, moving upper extremities, able to clap hands, reach for a NG-tube, purposeful. HEAD: Normocephalic/atraumatic. EYES: Normal reaction of pupils, equal size. Conjunctiva pink, sclera white. NOSE: Clear with pink turbinates. THROAT: No erythema or exudates. NECK: No masses, no JVD, no thyroid enlargement, no adenopathy. CHEST: No chest wall deformity. Symmetrical expansion. LUNGS: Equal air entry with no crackles, wheeze, rhonchi or dullness. CVS: Regular rate and rhythm, normal S1 and S2, no gallops, no murmurs, no rubs ABDOMEN: Soft, nontender. No hepatosplenomegaly, normal bowel sounds, no guarding or rigidity. EXTREMITIES: No clubbing, no edema, no cyanosis, 2+ pulses and upper and lower extremities. MUSCULOSKELETAL: Muscle strength and tone normal. SPINE: No scoliosis or deformity SKIN: No rashes CENTRAL NERVOUS SYSTEM: sedated No focal deficits, tone is normal in all 4 extremities. PSYCHIATRIC: Unable to assess, patient is sedated, intubated - Labs CBC & Chem 7: 10/06/18 04:40 10/06/18 04:40 Labs: Abnormal Lab Results - Last 24 Hours (Table) 10/05/18 10/05/18 10/05/18 Range/Units 12:00 18:07 23:39 RBC (4.30-5.90) m/uL Hgb (13.0-17.5) gm/dL Hct (39.0-53.0) % MCV (80.0-100.0) fL RDW (11.5-15.5) % Plt Count (150-450) k/uL ABG pH (7.35-7.45) ABG pO2 (83-108) mmHg ABG HCO3 (21-25) mmol/L ABG Total CO2 (19-24) mmol/L ABG O2 Saturation (94-97) % Chloride (98-107) mmol/L BUN (9-20) mg/dL Creatinine (0.66-1.25) mg/dL Glucose (74-99) mg/dL POC Glucose (mg/dL) 125 H 121 H 125 H (75-99) mg/dL Calcium (8.4-10.2) mg/dL 10/06/18 10/06/18 10/06/18 Range/Units 04:40 04:40 04:58 RBC 2.20 L (4.30-5.90) m/uL Hgb 6.9 L* (13.0-17.5) gm/dL Hct 22.1 L (39.0-53.0) % MCV 100.6 H (80.0-100.0) fL RDW 16.4 H (11.5-15.5) % Plt Count 105 L (150-450) k/uL ABG pH 7.46 H (7.35-7.45) ABG pO2 121 H (83-108) mmHg ABG HCO3 26 H (21-25) mmol/L ABG Total CO2 27 H (19-24) mmol/L ABG O2 Saturation 99.4 H (94-97) % Chloride 114 H (98-107) mmol/L BUN 21 H (9-20) mg/dL Creatinine 0.49 L (0.66-1.25) mg/dL Glucose 114 H (74-99) mg/dL POC Glucose (mg/dL) (75-99) mg/dL Calcium 7.3 L (8.4-10.2) mg/dL 10/06/18 Range/Units 06:05 RBC (4.30-5.90) m/uL Hgb (13.0-17.5) gm/dL Hct (39.0-53.0) % MCV (80.0-100.0) fL RDW (11.5-15.5) % Plt Count (150-450) k/uL ABG pH (7.35-7.45) ABG pO2 (83-108) mmHg ABG HCO3 (21-25) mmol/L ABG Total CO2 (19-24) mmol/L ABG O2 Saturation (94-97) % Chloride (98-107) mmol/L BUN (9-20) mg/dL Creatinine (0.66-1.25) mg/dL Glucose (74-99) mg/dL POC Glucose (mg/dL) 134 H (75-99) mg/dL Calcium (8.4-10.2) mg/dL Microbiology - Last 24 Hours (Table) 10/04/18 22:43 Blood Culture - Preliminary Blood No Growth after 24 hours 09/29/18 18:09 Blood Culture - Final Blood No Growth after 144 hours Assessment and Plan Plan: Assessment: Acute GI bleeding in a patient with known history of alcoholism, differential diagnoses includes peptic ulcer disease, esophageal varices, erosive gastritis, and even possibly diverticular disease/diverticulosis. he underwent EGD on 09/30/2018 was found to have a duodenal ulcer which was injected with epinephrine, but could not be clipped Acute hepatic encephalopathy with significantly elevated ammonia level secondary to underlying alcohol related liver disease. Continues to improve, remains on lactulose, today's serum ammonia level was 28 on 10/03/2018 history of underlying COPD, patient is now on bronchodilators in the form of DuoNeb. Benign essential hypertension Degenerative joint disease History of alcohol abuse Volume contraction alkalosis Hyponatremia and hyperchloremia related to free water deficit and infusion of 0.9 normal saline, corrected Plan: Patient is now fully awake, but he is purposeful, following simple commands intermittently, his chest x-ray and blood gases have been reviewed, blood gases satisfactory and patient has been maintained on pressure support of 8 and CPAP of 5 with FiO2 of 40% for last 48 hours, tolerated very well, vital signs are stable, no fever or chills, hemodynamically stable, lab data has been reviewed, culture today has been negative thus far, we'll proceed with extubation, tube feedings, maintain nothing by mouth. Head of the bed up, maintain aspiration precautions. Tinea with GI and DVT prophylaxis, patient will receive a unit of blood for a hemoglobin of 6.9, continues on PPI therapy, GI service is ghassan damon. I performed a history & physical examination of the patient and discussed their management with my nurse practitioner, Irena Ortiz. I reviewed the nurse practitioner's note and agree with the documented findings and plan of care. Lung sounds are positive for clear breath sounds. The findings and the impression was discussed with the patient. I attest to the documentation by the nurse practitioner. Time with Patient: Greater than 30
[2018-10-06] MEDS: LACTULOSE 20 GM/30 ML CUP PO SCH (11:18)
[2018-10-06] MEDS: THIAMINE 100 MG TAB PO SCH ×2 (11:18→16:33)
[2018-10-06] MEDS: CHLORHEXIDINE GLUCONATE 15 ML CUP MUCOUS MEM SCH (11:19)
[2018-10-06] MEDS: PANTOPRAZOLE 40 MG/10 ML VIAL IV SCH ×2 (11:21→20:43)
[2018-10-06] MEDS: NYSTATIN 100,000 UNIT/ML SUSP 500,000 UNIT/5 ML CUP PO SCH ×4 (11:21→21:03)
--- NOTE | 2018-10-06 11:26 | PN ---
PROGRESS NOTE DATE OF DICTATION: October 06, 2018 Patient is a 62-year-old pleasant white male admitted to the hospital with acute GI bleed, status post EGD 5 days ago and was noted to have a large duodenal bulbar ulcer. This was injected with epinephrine and since then he has been doing well. He was intubated all these days. He was just extubated this morning. He still remains extremely drowsy, but responding to commands. He dropped his hemoglobin to 6.9 g/dL, receiving 1 more unit of blood transfusion today, but no evidence of active bleeding. He still has which was dark green stool. As per the nursing staff, no acute events noted yesterday. PHYSICAL EXAMINATION: Blood pressure 119/62, pulse rate 98, afebrile. HEENT examination unremarkable. Conjunctivae pink. Sclerae anicteric. Oral cavity no lesions. Neck no JVD or lymph node enlargement. Chest was clear to auscultation. HEART: Regular rate and rhythm. ABDOMEN: Soft. Bowel sounds are positive. No organomegaly. EXTREMITIES: 2+ pedal edema. SKIN no rashes. NEURO: Responding to verbal stimuli. LABS: WBC 5.4, hemoglobin 6.9, platelets 105, BUN 21, creatinine 0.49. IMPRESSION: 1. Acute upper gastrointestinal bleed secondary to large duodenal ulcer, status post EGD [address] Liriano that showed duodenal ulcer presently on Protonix 40 mg twice daily. The patient is noted to have gradual drop in hemoglobin, but clinically no significant active bleeding. Hemoglobin this morning 6.9, receiving 1 unit of blood transfusion. 2. Status post extubation this morning. The patient is very drowsy and sleepy. 3. Alcoholic liver disease. 4. Hepatic encephalopathy. RECOMMENDATIONS: 1. Continue with Protonix 40 mg twice daily. 2. Continue with Jevity tube feeds. 3. Agree with 1 unit of blood transfusion. 4. Monitor CBC on a daily basis. 5. We will follow with you closely during his hospital stay. Thank you for this consultation. MMODL / IJN: [id number] /
[2018-10-06 12:05] LABS: Glucose,Whole Blood 100 mg/dL (75-99)
[2018-10-06] MEDS ORDERED: IPRATROPIUM-ALBUTEROL 3 ML NEB INHALATION PRN (14:27)
[2018-10-06 18:06] LABS: Glucose,Whole Blood 112 mg/dL (75-99)
[2018-10-06 23:39] LABS: Glucose,Whole Blood 101 mg/dL (75-99)
--- NOTE | 2018-10-07 02:25 | P.PN ---
Subjective Progress Note Date: 10/06/18 Principal diagnosis: GI bleed Duodenal ulcer JAG is a 62-year-old male who presented to the ER today with 1 day history of for large bloody bowel movements.this was associated with nausea and vomiting, he vomited some dark-looking material. Status post EGD and showed duodenal ulcer. 10/02/2018 Patient is currently is in the intensive care unit. Mechanical ventilator. AC 400 with FiO2 30% and PEEP of 5. Hemoglobin is 7.6 morning. Fecal collecting system showing some darker stool. NG tube suction showing minimal fluid. Chest x-ray showed no acute pulmonary process. Sodium is 147. Cultures showed no growth so far. Patient is being continued on D5 water. Currently on antibiotics in the form ceftriaxone and Flagyl. Pulmonary, ID and GI is following. 10.03 Patient is currently on mechanical ventilator. No fever no chills. Cultures have been negative. Hemoglobin came down to 6.8 today. 1 unit of PRBC was ordered. Patient is being continued on IV fluids and empiric antibiotics. Chest x-ray showed stable findings of COPD. Fecal collecting system showing green colored stool. No evidence of blood noted. Patient is on currently TPN. Renal function is stable. Pulmonary and GI is following. 10/04/2018 Patient is currently off sedation and on CPAP ventilation. Patient does not respond with verbal stimuli. CT head was done. Patient does have green colored stools. Hemoglobin is otherwise stable at 7.3. No output from the OG tube.. Gastroenterology is following. 10/05/2018 Patient is is still intubated and on the mechanical ventilator with pressure support/CPAP. Hemoglobin is 7.2 today. Fecal management system showing still green colored stool. Currently on TPN and NG tube feedings will be started. Patient is otherwise nonverbal at this time. Does not respond to the verbal CT head showed no acute intracranial process. Blood cultures and urine culture showed no growth. Sputum cultures grew Lisa. Discontinued all antibiotics. 10/06/2018 Patient is currently extubated today. Patient is otherwise more awake and responds to verbal stimuli. Otherwise hemoglobin was found to be 6.9 and is being transfused currently. TPN will be changed to every feedings. Chest x-ray showed bibasilar isdisease and small pleural effusions. No fever no chills. WBC count 5.4 Fecal management system is draining green colored stool. No blood noted. Otherwise patient is being continued on PPI twice daily. Complete review of systems could not be obtained from the patient. Current medications reviewed. Objective - Vital Signs Vital signs: Vital Signs Temp 99.1 F 10/06/18 14:30 Pulse 92 10/06/18 14:30 Resp 14 10/06/18 14:30 BP 116/68 10/06/18 14:30 Pulse Ox 97 10/06/18 14:30 Intake & Output 10/05/18 10/06/18 10/06/18 18:59 06:59 18:59 Intake Total 1989.5 2615 980 Output Total 770 860 720 Balance 1219.5 1755 260 Weight 83.2 kg 81.7 kg Intake: IV 1000 990 540 Mvi, Adult No.4 with Vit 780 780 380 K 10 ml Trace (Conc-1Ml/ Dose) 1 ml Potassium Acetate 10 meq In Amino Acid 5%-D15w+Lytes*E* 1, 000 ml @ 65 mls/hr IV .BY DURATION [facility] Rx#: [id number] Sodium Chloride 0.9% 1, 220 210 160 000 ml @ 20 mls/hr IV . Q24H [facility] Rx#:[id number] Intake, IV Titration 949.5 1005 Amount Potassium Acetate 10 meq 929.5 1005 In Amino Acid 5%-D15w+ Lytes*E* 1,000 ml @ 65 mls/hr IV .BY DURATION [facility] Rx#:[id number] Sodium Chloride 0.9% 1, 20 000 ml @ 20 mls/hr IV . Q24H [facility] Rx#:[id number] Tube Feeding 40 560 100 Blood Product 310 Rc Cpda-1 Unit 310 [id number] Other 60 30 Output: Urine 770 860 720 Other: Voiding Method Indwelling Catheter Indwelling Catheter Indwelling Catheter - Exam General appearance: The patient is awake and alert response to his name. Could not communicate at this time. HEENT: Head is normocephalic and atraumatic. Pupils are equal and reactive. The nares are patent. Oropharynx is clear without lesions. Neck: Supple without lymphadenopathy. Trachea midline. Heart: S1 S2. Regular rate and rhythm. Lungs: No crackles or wheezes are heard. Bibasilar diminished sounds and crackles positive. Abdomen: Soft, nontender, nondistended with good bowel sounds. No peritoneal signs. No palpable organomegaly or masses. Extremities: Normal skin color and turgor. No cyanosis, rash, ulceration, clubbing, or edema. Pulses palpable bilaterally. Lim clear kylee urine. Fecal management system green dark black stool. Neurological: Cannot be assessed at this time. - Labs CBC & Chem 7: 10/06/18 04:40 10/06/18 04:40 Labs: Abnormal Lab Results - Last 24 Hours (Table) 10/03/18 10/05/18 10/05/18 Range/Units 05:07 18:07 23:39 RBC (4.30-5.90) m/uL Hgb (13.0-17.5) gm/dL Hct (39.0-53.0) % MCV (80.0-100.0) fL RDW (11.5-15.5) % Plt Count (150-450) k/uL ABG pH (7.35-7.45) ABG pO2 (83-108) mmHg ABG HCO3 (21-25) mmol/L ABG Total CO2 (19-24) mmol/L ABG O2 Saturation (94-97) % Chloride (98-107) mmol/L BUN (9-20) mg/dL Creatinine (0.66-1.25) mg/dL Glucose (74-99) mg/dL POC Glucose (mg/dL) 121 H 125 H (75-99) mg/dL Calcium (8.4-10.2) mg/dL Crossmatch See Detail 10/06/18 10/06/18 10/06/18 Range/Units 04:40 04:40 04:58 RBC 2.20 L (4.30-5.90) m/uL Hgb 6.9 L* (13.0-17.5) gm/dL Hct 22.1 L (39.0-53.0) % MCV 100.6 H (80.0-100.0) fL RDW 16.4 H (11.5-15.5) % Plt Count 105 L (150-450) k/uL ABG pH 7.46 H (7.35-7.45) ABG pO2 121 H (83-108) mmHg ABG HCO3 26 H (21-25) mmol/L ABG Total CO2 27 H (19-24) mmol/L ABG O2 Saturation 99.4 H (94-97) % Chloride 114 H (98-107) mmol/L BUN 21 H (9-20) mg/dL Creatinine 0.49 L (0.66-1.25) mg/dL Glucose 114 H (74-99) mg/dL POC Glucose (mg/dL) (75-99) mg/dL Calcium 7.3 L (8.4-10.2) mg/dL Crossmatch 10/06/18 10/06/18 10/06/18 Range/Units 06:05 10:45 11:54 RBC (4.30-5.90) m/uL Hgb (13.0-17.5) gm/dL Hct (39.0-53.0) % MCV (80.0-100.0) fL RDW (11.5-15.5) % Plt Count (150-450) k/uL ABG pH (7.35-7.45) ABG pO2 (83-108) mmHg ABG HCO3 (21-25) mmol/L ABG Total CO2 (19-24) mmol/L ABG O2 Saturation (94-97) % Chloride (98-107) mmol/L BUN (9-20) mg/dL Creatinine (0.66-1.25) mg/dL Glucose (74-99) mg/dL POC Glucose (mg/dL) 134 H 100 H (75-99) mg/dL Calcium (8.4-10.2) mg/dL Crossmatch See Detail Microbiology - Last 24 Hours (Table) 10/04/18 22:43 Blood Culture - Preliminary Blood No Growth after 24 hours 09/29/18 18:09 Blood Culture - Final Blood No Growth after 144 hours Assessment and Plan Assessment: Upper gastrointestinal bleed with duodenal ulcer Anemia secondary to acute GI bleed Acute blood loss anemia Possible aspiration pneumonia Altered mental status metabolic encephalopathy related to hepatic encephalopathy elevated ammonia level history of alcohol abuse. ammonia level normalized. Gallbladder mass was attempting to have patient have consult with Dr. Teresa in [facility] Leukocytosis History of COPD GERD Plan Patient is off mechanical ventilator. Currently on nasal cannula.. Pulmonary is on board. Hemoglobin is 6.8 today. Follow-up H&H and transfuse as needed.. GI is on board. Discontinued antibiotics. Cultures have been negative. Long-term patient needs to see Dr. Teresa in [facility] for gallbladder mass. Further recommendations based on the clinical course. Prognosis is guarded. Time with Patient: Greater than 30
[2018-10-07] MEDS: SODIUM CHLORIDE 0.9% 1,000 ML IV SCH ×3 (05:34→12:33)
[2018-10-07 05:59] LABS: Glucose,Whole Blood 92 mg/dL (75-99)
[2018-10-07 06:24] LABS: Anisocytosis Slight; HCT 25.9 % (39.0-53.0); HGB 8.1 gm/dL (13.0-17.5); Hypochromasia Moderate; MCH 31.1 pg (25.0-35.0); MCHC 31.3 g/dL (31.0-37.0); MCV 99.3 fL (80.0-100.0); Macrocytosis Slight; Mean Platelet Volume 9.2; Poikilocytosis Moderate; RBC 2.61 m/uL (4.30-5.90); RDW 16.1 % (11.5-15.5); WBC 4.7 k/uL (3.8-10.6)
[2018-10-07 06:57] LABS: Platelet Count 68 k/uL (150-450)
[2018-10-07 07:33] LABS: African American GFR (CKD) >90 (>60 ml/min/1.73 sqM); Anion Gap 6 mmol/L; Blood Urea Nitrogen 26 mg/dL (9-20); Calcium 7.9 mg/dL (8.4-10.2); Carbon Dioxide 21 mmol/L (22-30); Chloride 118 mmol/L (98-107); Glucose 81 mg/dL (74-99); Sodium 145 mmol/L (137-145)
[2018-10-07 07:34] LABS: Magnesium 2.2 mg/dL (1.6-2.3); Phosphorus 3.8 mg/dL (2.5-4.5); Potassium 5.6 mmol/L (3.5-5.1)
--- NOTE | 2018-10-07 08:06 | XR ---
EXAMINATION TYPE: XR chest 1V DATE OF EXAM: 10/07/2018 COMPARISON: 10/06/2018 HISTORY: Shortness of breath TECHNIQUE: Single frontal view of the chest is obtained. FINDINGS: Bilateral consolidation greater on the left with small left effusion stable. Left-sided PI CC line noted. Biapical pleural thickening. No pneumothorax. Heart size stable. IMPRESSION: 1. Bilateral lower lobe infiltrate with small effusion is stable.
[2018-10-07] MEDS: PANTOPRAZOLE 40 MG/10 ML VIAL IV SCH ×2 (08:33→20:09)
[2018-10-07] MEDS: THIAMINE 100 MG TAB PO SCH ×2 (08:33→16:00)
[2018-10-07] MEDS: NYSTATIN 100,000 UNIT/ML SUSP 500,000 UNIT/5 ML CUP PO SCH ×4 (08:33→20:08)
[2018-10-07] MEDS: LACTULOSE 20 GM/30 ML CUP PO SCH (08:33)
[2018-10-07] MEDS: IPRATROPIUM-ALBUTEROL 3 ML NEB INHALATION SCH ×4 (08:36→19:37)
[2018-10-07] MEDS: 1: MVI, ADULT NO.4 WITH VIT K 10 ML, TRACE (CONC-1ML/DOSE) 1 ML, POTASSIUM ACETATE 10 ME IV SCH ×4 (11:57)
[2018-10-07 12:07] LABS: Glucose,Whole Blood 105 mg/dL (75-99)
[2018-10-07] MEDS ORDERED: 1: MVI, ADULT NO.4 WITH VIT K 10 ML, TRACE (CONC-1ML/DOSE) 1 ML, SODIUM ACETATE 30 MEQ, IV SCH ×6 (16:00)
[2018-10-07 18:27] LABS: Glucose,Whole Blood 90 mg/dL (75-99)
--- NOTE | 2018-10-07 22:12 | PN ---
PROGRESS NOTE DATE OF SERVICE: 10/07/2018. REASON FOR FOLLOWUP VISIT: Diarrhea and question of infectious etiology. INTERVAL HISTORY: The patient is currently afebrile. Patient remains to be lethargic and unable to provide any history. No nausea or vomiting. The patient did have significant diarrhea and did have fecal management system. PHYSICAL EXAMINATION: Blood pressure is 114/62 with a pulse of 96. Temperature 98.4. He is 95% on 3 L nasal cannula. General description is a middle-aged male lying in bed in no distress. Respiratory system: Unlabored breathing, clear to auscultation anteriorly. Heart S1, S2. Regular rate and rhythm. Abdomen soft, no tenderness. LABS: Hemoglobin 8.1, white count 4.7, BUN of 26, creatinine 0.66. DIAGNOSTIC IMPRESSION AND PLAN: 1. Patient with concern for possible aspiration pneumonitis that has been adequately treated. Currently off antibiotics. 2. The patient who did have significant diarrhea with concern for possible infectious etiology or antibiotic associated which has been discontinued. Stool for C diff was ordered on Sunday, not completed. Discussed with the RN again who will send a specimen today. MMODL / IJN: [id number] /
[2018-10-08 00:10] LABS: Glucose,Whole Blood 92 mg/dL (75-99)
[2018-10-08] MEDS: SODIUM CHLORIDE 0.9% 1,000 ML IV SCH ×2 (05:28→19:06)
[2018-10-08 06:11] LABS: African American GFR (CKD) >90 (>60 ml/min/1.73 sqM); Anion Gap 0 mmol/L; Blood Urea Nitrogen 24 mg/dL (9-20); Calcium 7.4 mg/dL (8.4-10.2); Carbon Dioxide 22 mmol/L (22-30); Chloride 121 mmol/L (98-107); Glucose 88 mg/dL (74-99); Phosphorus 2.8 mg/dL (2.5-4.5); Potassium 3.9 mmol/L (3.5-5.1); Sodium 143 mmol/L (137-145)
[2018-10-08 06:11] LABS: Glucose,Whole Blood 96 mg/dL (75-99)
[2018-10-08 06:51] LABS: Anisocytosis Slight; HCT 20.1 % (39.0-53.0); Hypochromasia Marked; MCH 31.7 pg (25.0-35.0); MCHC 31.1 g/dL (31.0-37.0); MCV 101.7 fL (80.0-100.0); Macrocytosis Moderate; Mean Platelet Volume 8.8; Platelet Count 95 k/uL (150-450); Poikilocytosis Moderate; RBC 1.98 m/uL (4.30-5.90); RDW 17.2 % (11.5-15.5); WBC 3.7 k/uL (3.8-10.6)
[2018-10-08] MEDS: IPRATROPIUM-ALBUTEROL 3 ML NEB INHALATION SCH ×4 (07:34→19:50)
[2018-10-08 07:40] LABS: HGB 6.3 gm/dL (13.0-17.5)
--- NOTE | 2018-10-08 07:57 | PN ---
PROGRESS NOTE DATE OF SERVICE: October 07, 2018 I am covering for Dr. Trevino. This 62 -year-old gentleman who was admitted with GI bleed, had GI bleed and duodenal ulcer. The patient also had acute hypoxic respiratory failure secondary to change in mental status and possibly alcoholic abuse and the patient was on mechanical ventilation. Patient extubated. Patient continues to be confused. Multiple consultants are following the patient closely. Hemoglobin at this time today is 8.1. PAST MEDICAL HISTORY: Reviewed. REVIEW OF SYSTEMS: Could not be taken. The patient is still confused. CURRENT MEDICATIONS: Reviewed and include: 1. DuoNeb q.i.d. and p.r.n. 2. Cephulac. 3. Magnesium, potassium protocols. 4. Narcan. 5. Mycostatin. 6. Protonix. 7. PPN. 8. Vitamin B1. PHYSICAL EXAM: Patient is conscious but confused. Pulse is 97, blood pressure 125/60, respiration 13, temperature 99.1, pulse ox 94% on 3 L. HEENT: Conjunctivae normal. Oral mucosa moist. NECK is no jugular venous distention. No carotid bruit. No lymph node enlargement. CARDIOVASCULAR systems: S1. S2. RESPIRATION: Breath sounds diminished in the bases. Bilateral scattered rhonchi and crackles. Expiratory wheezing also present. ABDOMEN: Soft, nontender. LEGS are no edema. No swelling. NERVOUS SYSTEM: Diffusely weak. LAB STUDIES: WBC 4.8, hemoglobin is 8.1, sodium 140, potassium 5.6. ASSESSMENT: 1. Acute upper gastrointestinal bleeding with acute blood loss anemia with bleeding duodenal ulcer. 2. Change in mental status, acute metabolic encephalopathy, multifactorial. 3. Acute hypoxic respiratory failure from above, status post mechanical ventilation. 4. Possible aspiration pneumonia. 5. History of ETOH. 6. Hyperammonemia with possible chronic liver disease. 7. Gallbladder mass. 8. Leukocytosis. 9. Chronic obstructive pulmonary disease. 10.Gastroesophageal reflux disease. 11.Hyperkalemia, mild. 12.Thrombocytopenia. 13.History of gastroesophageal reflux disease. 14.History of degenerative joint disease. 15.Remote history of nicotine dependence. 16.FULL CODE. RECOMMENDATIONS AND DISCUSSION: This 62 -year-old gentleman with multiple complex medical issues, we will monitor the patient closely, continue the current medications, management and symptomatic treatment. Continue the bronchodilators, continue empiric antibiotics. The most recent chest x-ray which was reviewed personally by me showed significant improvement, possibly the left basilar lesion and infiltrate. Guarded prognosis. Further recommendations to follow. See orders for details. Discussed with staff. MMODL / IJN: [id number] /
[2018-10-08] MEDS: LACTULOSE 20 GM/30 ML CUP PO SCH (08:46)
[2018-10-08] MEDS: NYSTATIN 100,000 UNIT/ML SUSP 500,000 UNIT/5 ML CUP PO SCH ×4 (08:46→20:05)
[2018-10-08] MEDS: THIAMINE 100 MG TAB PO SCH ×2 (08:46→19:09)
[2018-10-08] MEDS: PANTOPRAZOLE 40 MG/10 ML VIAL IV SCH ×2 (09:23→20:05)
[2018-10-08 10:08] VITALS: BMI 25.1
[2018-10-08 11:55] LABS: Glucose,Whole Blood 122 mg/dL (75-99)
--- NOTE | 2018-10-08 15:51 | FL ---
COMPARISON: NONE DATE OF EXAM: 10/08/2018 HISTORY: Dysphasia A number of thin and thick substances were ingested under the care of the department of speech pathol ogy. There is transient penetration upon ingestion of thin barium. No aspiration. Remaining substanc es demonstrated no aspiration or penetration. There was posterior wall and vallecular residual. IMPRESSION: 1. See above.
[2018-10-08 16:34] LABS: Anisocytosis Slight; Hypochromasia Marked; MCH 30.2 pg (25.0-35.0); MCHC 30.6 g/dL (31.0-37.0); MCV 98.9 fL (80.0-100.0); Macrocytosis Slight; Mean Platelet Volume 8.1; Platelet Count 107 k/uL (150-450); Poikilocytosis Moderate; RBC 2.32 m/uL (4.30-5.90); RDW 16.6 % (11.5-15.5); WBC 3.8 k/uL (3.8-10.6)
[2018-10-08 17:47] LABS: Eosinophils # (M) 0.11 k/uL (0-0.7); Lymphocytes # (M) 0.65 k/uL (1.0-4.8); Monocytes # (M) 0.23 k/uL (0-1.0); Neutrophils # (M) 2.81 k/uL (1.3-7.7); Neutrophils % (M) 74 %; Nucleated Red Blood Cells 0 /100 WBC (0-0); Total Cells Counted 100
--- NOTE | 2018-10-08 18:20 | P.PN ---
Subjective Progress Note Date: 10/07/18 Principal diagnosis: Acute GI bleeding this is a 62-year-old white male who presented to the ER today with 1 day history of for large bloody bowel movements.this was associated with nausea and vomiting, he vomited some dark-looking material. Denied any hematemesis. Denied any melena. Apparently the patient was recently at [facility] for abdominal pain, exact workup is not clear at the time of this dictation, but he was discharged out of [facility] about 2 days ago. Since discharge, the patient has been feeling rundown and fatigued.on admission his initial hemoglobin was 8.8, since then patient had further episodes of bright red blood per rectum and bloody bowel movements, follow-up hemoglobin is 7.3, patient will be receiving blood transfusion, and arrangements were made for the patient to be admitted to the ICU.the patient himself is a very poor historian, apparently when he arrived he was extremely agitated, he is known to have history of alcohol abuse, hence he was given Ativan and he was placed on the C1wa protocol.during my evaluation, the patient was noted to be sedated, calm, cannot give much history, quite lethargic, arousable but easily gets agitated. Apparently his ammonia level was high, hence I recommended nasogastric tube to be placed and to start lactulose. As the patient may have obviously hepatic encephalopathy.lactic acid on admi ssion was 4.3, hence fluid boluses were given. Patient is not requiring any pressors, and he seems to be hemodynamically stable at this point.patient is also known to have history of COPD, mild clubbing noted on physical examination, hence he was placed on DuoNeb updrafts 4 times a day and when necessary. Patient was also placed on Rocephin for his presentation of hepatic encephalopathy and hyperammonemia. On 09/30/2018 patient seen in follow-up in the intensive care unit. Patient is on mechanical ventilator, sedated, and ventilating's are assist-control mode of ventilation with a rate of 12, tidal and 400, FiO2 of 40% and PEEP of 5, this morning his blood gases showed pO2 of 133, pCO2 33, and pH of 7.39, this was done on FiO2 of 50%, FiO2 had since been dropped down to 40%. IVs include 0.9 normal saline at a rate of 75 ML per hour, Diprivan and is at 50 mics per kilo per minute. Patient received 2 units of packed red blood cells for hemoglobin of 7.3, this morning hemoglobin is 8.4, with blood cell count is 10.7, platelet count is 159, and sodium is 142, potassium is 4.5, chloride is 118, CO2 17, BUN is 44, creatinine 0.87, urinalysis was clear, no signs of infection, drug screen was positive for opiates and benzodiazepines. Patient has been afebrile, was dynamically stable, his chest x-ray has been reviewed, showing COPD and newly developing infiltrate in the right upper lobe. Antibiotic coverage in the form of Rocephin. Blood cultures are pending, sputum culture will be sent. he is receiving lactulose per OG tube, and ammonia level is down to 64 on today's labs . We'll catheter is in, and patient is nonoliguric. Lung sounds are clear. On 10/01/2018 patient seen in follow-up in the intensive care unit, he remains sedated, and intubated, on mechanical ventilator. Yesterday patient underwent EGD, and was found to have a duodenal ulcer, which could not be clipped related to its location. Was injected with epinephrine. Today's labs have been reviewed, showing white blood cell count of 7.7, hemoglobin is 7.4, serum sodium is 142, potassium 3.9, chloride is 120, CO2 is 18, B1 is 36, creatinine 0.84. She received 2 units of packed red blood cells this admission. FMS system is in place, draining liquid melanotic stool. Hemodynamic patient is stable, heart rate is controlled. Lung sounds are clear, patient's comfortable on the ventilator, currently on assist control mode of ventilation with a rate of 12, tidal volume 400, FiO2 of 40%, and PEEP of 5, this morning his blood gases were reviewed, showing pO2 of 132, pCO2 of 31, pH of 7.40, and FiO2 was dropped down to 30%. Currently on IVs including 0.9 normal saline at 75 ML per hour, propof ol is at 50 mics per kilo per minute. No tube feedings right now. We'll proceed with sedation holiday today, to assess mentation, and likely proceed with weaning trials, with pressure support of 5, and CPAP of 5. Chest x-ray has been reviewed, showing chronic changes, without acute pulmonary disease. On 10/02/2018 patient seen in follow-up in the intensive care unit. Patient has been off sedation since this morning, but remains very sedated. Intubated on mechanical ventilator, on assist control mode of ventilation with a rate of 12, tidal vital 400, FiO2 30% and PEEP of 5. This morning blood gases were reviewed, showing a pO2 of 64, pCO2 46, and pH of 7.36. Chest x-ray this morning showed no acute pulmonary process, lungs are clear, ET-tube and a NG- tube in the appropriate positions. No acute events overnight, yesterday patient was given sedation holiday, however he never did fully wake up and follow commands, and in the evening became quite tachypneic and was placed back on s edation. IV 0.9 normal saline at a rate of 75 ML per hour, no other drips, this morning's blood work has been reviewed, showing white blood cell count is 6.9, hemoglobin of 7.3, the patient has a fecal management system in place, and he is putting out liquid melanotic stool. Receiving lactulose, he did produce 1100 mL of liquid stool in the last 24 hours. He is developing fluid volume contraction alkalosis and hypernatremia. He has been nothing by mouth, no nutrition since admission. We will inquire with GI service whether tube feedings can be started. Lung sounds are clear. Microbiology data has been reviewed, showing blood, urine and sputum cultures are no growth so far, final cultures are pending. Better coverage in the form of Rocephin and Flagyl. On 10/03/2018 patient seen in follow-up in the intensive care unit, he remains sedated, intubated on mechanical ventilator, current vent settings are assist- control mode of ventilation with a rate of 12, tidal 400, FiO2 of 30% and PEEP of 5. This morning his blood gases showed pO2 of 94, pCO2 34, pH of 7.45. IV fluids D5W at a rate of 75 ML per hour, TPN is a 30 ML per hour, and propofol is at 30 mics per kilo per minute. This morning's lab work has been reviewed, showing white blood cell count of 5.0, hemoglobin of 6.8, patient was given a unit of blood, sodium is 140, potassium is 4.1, chloride is 116, CO2 is 22, BUN is 23, creatinine is 0.59. Ammonia level is down to 28, yesterday we decreased the lactulose to once daily, she patient was given a daily traction of sedation, did not become fully awake, or following commands, did become quite asynchronous and tachypneic, and had to be re-sedated. Today's chest x-ray has been reviewed, showing stable changes of COPD without acute process. Patient is afebrile, blood urine and sputum cultures are negative. Some liquid dark green output, with no visible blood in the stool. She remains on Rocephin and Flagyl for antibiotic coverage. TPN is at 30 ML per hour per GI service recommendations. On 10/04/2018 patient seen in follow-up in the intensive care unit, he remains sedated, intubated on mechanical ventilator, this morning's blood gases showed a pO2 of 75, pCO2 35, and pH of 7.45, this was done on assist control mode of ventilation with a rate of 12, tidal vital 400, FiO2 30% and PEEP of 5. This morning chest x-rays has been reviewed, showing stable changes of COPD without acute process and small left pleural effusion. Yesterday patient was given the daily traction of sedation, he started moving his extremities, however he did not open his eyes and follow commands, brain CT was obtained and showed no acute intracranial abnormality. Patient was placed on the PSV 5 and pressure-support of 5 yesterday and did sustain an for 4 hours, and then placed back on assist control mode of ventilation for the night. This morning he was placed back on pressure-support of 8, with the CPAP of 5, he is tolerating it well so far. Sedation is on hold, this morning blood work was reviewed, showing white blood cell count of 5.7, hemoglobin of 7.3, serum sodium is 137, potassium is 4.2, chloride is 112, CO2 is 23, BUN is 19, creatinine 0.53. Afebrile, vital signs are stable, microbiology data has been reviewed, showing only Lisa albicans in the sputum culture, patient has been on empiric antibiotics in the form of Rocephin and Flagyl, will discontinue them. Remains on TPN at 79 per hour, and D5W at a rate of 75 ML per hour. On 10/06/2018 patient name in follow-up in the intensive care unit. Patient has been on pressure-support of 8 and CPAP of 5 and FiO2 of 40% for last 48 hours, has tolerated very well. We were just waiting for the patient to become more awake, patient will not open his eyes, but he is moving his upper extremities, and he is at times following simple commands, clapping his hands in response to Dr. Valero clapping his hands with the patient. This might blood gases were reviewed, showing pO2 of 121, pCO2 of 36, and pH of 7.46, white blood cell count was 5.4, hemoglobin is 6.9, and patient will receive a unit of packed red blood cells, platelet count is 105, serum sodium is 140, potassium is 3.8, chloride is 114, CO2 is 26, B1 is 21, creatinine 0.49. Patient has been on TPN, patient has also been started on tube feedings. Which we will hold today, sounds are clear, today's chest x-ray has been reviewed, chest x-ray showed bibasilar airspace disease and small pleural effusions. No fever or chills, vital signs are stable, data has been reviewed, showing sputum culture with Lisa albicans only. CT has shown no intracranial process, patient remains on lactulose at 20 mg daily. Fecal management system is draining greenish colored liquid output. No visible blood. She remains on PPI therapy at 40 mg twice daily. On 10/07/2018 patient seen in follow-up in the intensive care unit, patient is more awake, following commands, does have some periods of agitation, but her for the most part, he is currently on 3 L of oxygen with a pulse ox of 96%, hemodynamically stable, afebrile. Denies any abdominal pain, fecal management system remains in place, with the liquid greenish and sometimes darker liquid output, today's labs have been reviewed, showing blood cell, 4.7, hemoglobin of 8.1, serum sodium is 145, potassium is 4.0, chloride is 118, CO2 is 21, BUN is 26, creatinine is 0.6. Ammonia level is 13, C. diff was negative. We'll obtain a bedside swallow evaluation today. TPN has been discontinued. His chest x-ray shows a bilateral lower lobe infiltrate with small pleural effusions, no fever or chills, all cultures remain negative thus far, with exception of Lisa albicans in the sputum. Objective - Vital Signs Vital signs: Vital Signs Temp 98.6 F 10/08/18 16:00 Pulse 92 10/08/18 17:00 Resp 18 10/08/18 17:00 BP 121/67 10/08/18 17:00 Pulse Ox 95 10/08/18 17:00 Intake & Output 10/07/18 10/08/18 10/08/18 18:59 06:59 18:59 Intake Total 112 023 0214 Output Total 825 1130 1340 Balance -141 -656 -636 Weight 84 kg 84 kg Intake: IV 240 845 825 Sodium Chloride 0.9% 1, 240 20 000 ml @ 20 mls/hr IV . Q24H ASHLEY Rx#:[id number] Sodium Chloride 0.9% 1, 825 825 000 ml @ 75 mls/hr IV . [id number] ASH[facility] Rx#:[id number] Blood Product 310 Rc As-1 Unit 310 [id number] Output: Urine 825 1105 790 Stool 25 550 Other: Voiding Method Indwelling Catheter Indwelling Catheter Indwelling Catheter - Exam GENERAL EXAM: 62-year-old white male, on 3 L of oxygen, with a pulse ox of 96%, he is lethargic, and patient does arouse to verbal stimuli, oriented to self, and place, occasionally agitated HEAD: Normocephalic/atraumatic. EYES: Normal reaction of pupils, equal size. Conjunctiva pink, sclera white. NOSE: Clear with pink turbinates. THROAT: No erythema or exudates. NECK: No masses, no JVD, no thyroid enlargement, no adenopathy. CHEST: No chest wall deformity. Symmetrical expansion. LUNGS: Equal air entry with no crackles, wheeze, rhonchi or dullness. CVS: Regular rate and rhythm, normal S1 and S2, no gallops, no murmurs, no rubs ABDOMEN: Soft, nontender. No hepatosplenomegaly, normal bowel sounds, no guarding or rigidity. EXTREMITIES: No clubbing, no edema, no cyanosis, 2+ pulses and upper and lower extremities. MUSCULOSKELETAL: Muscle strength and tone normal. SPINE: No scoliosis or deformity SKIN: No rashes CENTRAL NERVOUS SYSTEM: sedated No focal deficits, tone is normal in all 4 extremities. PSYCHIATRIC: Unable to assess, patient is sedated, intubated - Labs CBC & Chem 7: 10/08/18 16:23 10/08/18 05:31 Labs: Abnormal Lab Results - Last 24 Hours (Table) 10/06/18 10/08/18 10/08/18 Range/Units 10:45 05:31 05:31 WBC 3.7 L (3.8-10.6) k/uL RBC 1.98 L (4.30-5.90) m/uL Hgb 6.3 L* D (13.0-17.5) gm/dL Hct 20.1 L (39.0-53.0) % MCV 101.7 H (80.0-100.0) fL MCHC (31.0-37.0) g/dL RDW 17.2 H (11.5-15.5) % Plt Count 95 L (150-450) k/uL Lymphocytes # (Manual) (1.0-4.8) k/uL Chloride 121 H (98-107) mmol/L BUN 24 H (9-20) mg/dL Creatinine 0.47 L (0.66-1.25) mg/dL POC Glucose (mg/dL) (75-99) mg/dL Calcium 7.4 L (8.4-10.2) mg/dL Crossmatch See Detail 10/08/18 10/08/18 Range/Units 11:43 16:23 WBC (3.8-10.6) k/uL RBC 2.32 L (4.30-5.90) m/uL Hgb 7.0 L (13.0-17.5) gm/dL Hct 23.0 L (39.0-53.0) % MCV (80.0-100.0) fL MCHC 30.6 L (31.0-37.0) g/dL RDW 16.6 H (11.5-15.5) % Plt Count 107 L (150-450) k/uL Lymphocytes # (Manual) 0.65 L (1.0-4.8) k/uL Chloride (98-107) mmol/L BUN (9-20) mg/dL Creatinine (0.66-1.25) mg/dL POC Glucose (mg/dL) 122 H (75-99) mg/dL Calcium (8.4-10.2) mg/dL Crossmatch Microbiology - Last 24 Hours (Table) 10/04/18 22:43 Blood Culture - Preliminary Blood No Growth after 72 hours Assessment and Plan Plan: Assessment: Acute GI bleeding in a patient with known history of alcoholism, differential diagnoses includes peptic ulcer disease, esophageal varices, erosive gastritis, and even possibly diverticular disease/diverticulosis. he underwent EGD on 09/30/2018 was found to have a duodenal ulcer which was injected with epinephrine, but could not be clipped Acute hepatic encephalopathy with significantly elevated ammonia level secondary to underlying alcohol related liver disease. Continues to improve, remains on lactulose, today's serum ammonia level was 28 on 10/03/2018 history of underlying COPD, patient is now on bronchodilators in the form of DuoNeb. Benign essential hypertension Degenerative joint disease History of alcohol abuse Volume contraction alkalosis Hyponatremia and hyperchloremia related to free water deficit and infusion of 0.9 normal saline, corrected Plan: Today's chest x-ray has been reviewed, showing left pleural effusion, with adjacent atelectasis, no fever or chills, vital signs are stable, mentation is improving, although patient still has lethargy, but patient does arouse to verbal stimuli. We'll obtain swallow evaluation. TPN has been discontinued, antibiotics have been discontinued, ammonia level continues to improve, no complaints of abdominal pain, no shortness of breath or chest pain. Maintain aspiration precautions. We'll proceed with the oral diet as long as a patient sustains wakefulness with supervision. We'll continue to follow I performed a history & physical examination of the patient and discussed their management with my nurse practitioner, Irena Ortiz. I reviewed the nurse practitioner's note and agree with the documented findings and plan of care. Lung sounds are positive for clear breath sounds. The findings and the impression was discussed with the patient. I attest to the documentation by the nurse practitioner.
--- NOTE | 2018-10-08 18:26 | P.PN ---
Subjective Progress Note Date: 10/08/18 Principal diagnosis: Acute GI bleeding this is a 62-year-old white male who presented to the ER today with 1 day history of for large bloody bowel movements.this was associated with nausea and vomiting, he vomited some dark-looking material. Denied any hematemesis. Denied any melena. Apparently the patient was recently at [facility] for abdominal pain, exact workup is not clear at the time of this dictation, but he was discharged out of [facility] about 2 days ago. Since discharge, the patient has been feeling rundown and fatigued.on admission his initial hemoglobin was 8.8, since then patient had further episodes of bright red blood per rectum and bloody bowel movements, follow-up hemoglobin is 7.3, patient will be receiving blood transfusion, and arrangements were made for the patient to be admitted to the ICU.the patient himself is a very poor historian, apparently when he arrived he was extremely agitated, he is known to have history of alcohol abuse, hence he was given Ativan and he was placed on the C1wa protocol.during my evaluation, the patient was noted to be sedated, calm, cannot give much history, quite lethargic, arousable but easily gets agitated. Apparently his ammonia level was high, hence I recommended nasogastric tube to be placed and to start lactulose. As the patient may have obviously hepatic encephalopathy.lactic acid on admi ssion was 4.3, hence fluid boluses were given. Patient is not requiring any pressors, and he seems to be hemodynamically stable at this point.patient is also known to have history of COPD, mild clubbing noted on physical examination, hence he was placed on DuoNeb updrafts 4 times a day and when necessary. Patient was also placed on Rocephin for his presentation of hepatic encephalopathy and hyperammonemia. On 09/30/2018 patient seen in follow-up in the intensive care unit. Patient is on mechanical ventilator, sedated, and ventilating's are assist-control mode of ventilation with a rate of 12, tidal and 400, FiO2 of 40% and PEEP of 5, this morning his blood gases showed pO2 of 133, pCO2 33, and pH of 7.39, this was done on FiO2 of 50%, FiO2 had since been dropped down to 40%. IVs include 0.9 normal saline at a rate of 75 ML per hour, Diprivan and is at 50 mics per kilo per minute. Patient received 2 units of packed red blood cells for hemoglobin of 7.3, this morning hemoglobin is 8.4, with blood cell count is 10.7, platelet count is 159, and sodium is 142, potassium is 4.5, chloride is 118, CO2 17, BUN is 44, creatinine 0.87, urinalysis was clear, no signs of infection, drug screen was positive for opiates and benzodiazepines. Patient has been afebrile, was dynamically stable, his chest x-ray has been reviewed, showing COPD and newly developing infiltrate in the right upper lobe. Antibiotic coverage in the form of Rocephin. Blood cultures are pending, sputum culture will be sent. he is receiving lactulose per OG tube, and ammonia level is down to 64 on today's labs . We'll catheter is in, and patient is nonoliguric. Lung sounds are clear. On 10/01/2018 patient seen in follow-up in the intensive care unit, he remains sedated, and intubated, on mechanical ventilator. Yesterday patient underwent EGD, and was found to have a duodenal ulcer, which could not be clipped related to its location. Was injected with epinephrine. Today's labs have been reviewed, showing white blood cell count of 7.7, hemoglobin is 7.4, serum sodium is 142, potassium 3.9, chloride is 120, CO2 is 18, B1 is 36, creatinine 0.84. She received 2 units of packed red blood cells this admission. FMS system is in place, draining liquid melanotic stool. Hemodynamic patient is stable, heart rate is controlled. Lung sounds are clear, patient's comfortable on the ventilator, currently on assist control mode of ventilation with a rate of 12, tidal volume 400, FiO2 of 40%, and PEEP of 5, this morning his blood gases were reviewed, showing pO2 of 132, pCO2 of 31, pH of 7.40, and FiO2 was dropped down to 30%. Currently on IVs including 0.9 normal saline at 75 ML per hour, propof ol is at 50 mics per kilo per minute. No tube feedings right now. We'll proceed with sedation holiday today, to assess mentation, and likely proceed with weaning trials, with pressure support of 5, and CPAP of 5. Chest x-ray has been reviewed, showing chronic changes, without acute pulmonary disease. On 10/02/2018 patient seen in follow-up in the intensive care unit. Patient has been off sedation since this morning, but remains very sedated. Intubated on mechanical ventilator, on assist control mode of ventilation with a rate of 12, tidal vital 400, FiO2 30% and PEEP of 5. This morning blood gases were reviewed, showing a pO2 of 64, pCO2 46, and pH of 7.36. Chest x-ray this morning showed no acute pulmonary process, lungs are clear, ET-tube and a NG- tube in the appropriate positions. No acute events overnight, yesterday patient was given sedation holiday, however he never did fully wake up and follow commands, and in the evening became quite tachypneic and was placed back on s edation. IV 0.9 normal saline at a rate of 75 ML per hour, no other drips, this morning's blood work has been reviewed, showing white blood cell count is 6.9, hemoglobin of 7.3, the patient has a fecal management system in place, and he is putting out liquid melanotic stool. Receiving lactulose, he did produce 1100 mL of liquid stool in the last 24 hours. He is developing fluid volume contraction alkalosis and hypernatremia. He has been nothing by mouth, no nutrition since admission. We will inquire with GI service whether tube feedings can be started. Lung sounds are clear. Microbiology data has been reviewed, showing blood, urine and sputum cultures are no growth so far, final cultures are pending. Better coverage in the form of Rocephin and Flagyl. On 10/03/2018 patient seen in follow-up in the intensive care unit, he remains sedated, intubated on mechanical ventilator, current vent settings are assist- control mode of ventilation with a rate of 12, tidal 400, FiO2 of 30% and PEEP of 5. This morning his blood gases showed pO2 of 94, pCO2 34, pH of 7.45. IV fluids D5W at a rate of 75 ML per hour, TPN is a 30 ML per hour, and propofol is at 30 mics per kilo per minute. This morning's lab work has been reviewed, showing white blood cell count of 5.0, hemoglobin of 6.8, patient was given a unit of blood, sodium is 140, potassium is 4.1, chloride is 116, CO2 is 22, BUN is 23, creatinine is 0.59. Ammonia level is down to 28, yesterday we decreased the lactulose to once daily, she patient was given a daily traction of sedation, did not become fully awake, or following commands, did become quite asynchronous and tachypneic, and had to be re-sedated. Today's chest x-ray has been reviewed, showing stable changes of COPD without acute process. Patient is afebrile, blood urine and sputum cultures are negative. Some liquid dark green output, with no visible blood in the stool. She remains on Rocephin and Flagyl for antibiotic coverage. TPN is at 30 ML per hour per GI service recommendations. On 10/04/2018 patient seen in follow-up in the intensive care unit, he remains sedated, intubated on mechanical ventilator, this morning's blood gases showed a pO2 of 75, pCO2 35, and pH of 7.45, this was done on assist control mode of ventilation with a rate of 12, tidal vital 400, FiO2 30% and PEEP of 5. This morning chest x-rays has been reviewed, showing stable changes of COPD without acute process and small left pleural effusion. Yesterday patient was given the daily traction of sedation, he started moving his extremities, however he did not open his eyes and follow commands, brain CT was obtained and showed no acute intracranial abnormality. Patient was placed on the PSV 5 and pressure-support of 5 yesterday and did sustain an for 4 hours, and then placed back on assist control mode of ventilation for the night. This morning he was placed back on pressure-support of 8, with the CPAP of 5, he is tolerating it well so far. Sedation is on hold, this morning blood work was reviewed, showing white blood cell count of 5.7, hemoglobin of 7.3, serum sodium is 137, potassium is 4.2, chloride is 112, CO2 is 23, BUN is 19, creatinine 0.53. Afebrile, vital signs are stable, microbiology data has been reviewed, showing only Lisa albicans in the sputum culture, patient has been on empiric antibiotics in the form of Rocephin and Flagyl, will discontinue them. Remains on TPN at 79 per hour, and D5W at a rate of 75 ML per hour. On 10/06/2018 patient name in follow-up in the intensive care unit. Patient has been on pressure-support of 8 and CPAP of 5 and FiO2 of 40% for last 48 hours, has tolerated very well. We were just waiting for the patient to become more awake, patient will not open his eyes, but he is moving his upper extremities, and he is at times following simple commands, clapping his hands in response to Dr. Valero clapping his hands with the patient. This might blood gases were reviewed, showing pO2 of 121, pCO2 of 36, and pH of 7.46, white blood cell count was 5.4, hemoglobin is 6.9, and patient will receive a unit of packed red blood cells, platelet count is 105, serum sodium is 140, potassium is 3.8, chloride is 114, CO2 is 26, B1 is 21, creatinine 0.49. Patient has been on TPN, patient has also been started on tube feedings. Which we will hold today, sounds are clear, today's chest x-ray has been reviewed, chest x-ray showed bibasilar airspace disease and small pleural effusions. No fever or chills, vital signs are stable, data has been reviewed, showing sputum culture with Lisa albicans only. CT has shown no intracranial process, patient remains on lactulose at 20 mg daily. Fecal management system is draining greenish colored liquid output. No visible blood. She remains on PPI therapy at 40 mg twice daily. On 10/07/2018 patient seen in follow-up in the intensive care unit, patient is more awake, following commands, does have some periods of agitation, but her for the most part, he is currently on 3 L of oxygen with a pulse ox of 96%, hemodynamically stable, afebrile. Denies any abdominal pain, fecal management system remains in place, with the liquid greenish and sometimes darker liquid output, today's labs have been reviewed, showing blood cell, 4.7, hemoglobin of 8.1, serum sodium is 145, potassium is 4.0, chloride is 118, CO2 is 21, BUN is 26, creatinine is 0.6. Ammonia level is 13, C. diff was negative. We'll obtain a bedside swallow evaluation today. TPN has been discontinued. His chest x-ray shows a bilateral lower lobe infiltrate with small pleural effusions, no fever or chills, all cultures remain negative thus far, with exception of Lisa albicans in the sputum. On 10/08/2018 patient seen in follow-up in the intensive care unit, still is drowsy at times, but more awake on today's exam, oriented to self and place, at times gets it a little agitated, redirected, vital signs remain stable, afebrile, hemodynamically stable, he is on room air, with a pulse ox of 98%, culture data remains negative thus far, today's lab work has been reviewed, and patient's hemoglobin is down to 6.3, with no clear-cut evidence of bleeding, fecal management system remains in place with liquid green output which is darker at times, C. diff was negative, no tachycardia, no hypotension, white blood cell count is 3.7, serum sodium is 143, potassium 3.9, chloride is 121, BUN is 24 creatinine is 0.47. Apparently patient had some coughing and gurgling in the back of the throat with the bedside swallow evaluation, and in view of that patient underwent modified barium swallow which showed transient penetration upon ingestion of thin barium, but no aspiration. He was started on oral diet. His any difficulty breathing, denies any abdominal pain. No new chest x-rays today. Lim catheter is in place, patient is nonoliguric. Objective - Vital Signs Vital signs: Vital Signs Temp 98.6 F 10/08/18 16:00 Pulse 94 10/08/18 18:00 Resp 16 10/08/18 18:00 BP 114/68 10/08/18 18:00 Pulse Ox 92 L 10/08/18 18:00 Intake & Output 10/07/18 10/08/18 10/08/18 18:59 06:59 18:59 Intake Total 702 072 9574 Output Total 825 1130 1380 Balance -585 -285 -170 Weight 84 kg 84 kg Intake: IV 240 845 900 Sodium Chloride 0.9% 1, 240 20 000 ml @ 20 mls/hr IV . Q24H ASHLEY Rx#:[id number] Sodium Chloride 0.9% 1, 825 900 000 ml @ 75 mls/hr IV . [id number] ASHLEY Rx#:[id number] Blood Product 310 Rc As-1 Unit 310 [id number] Output: Urine 825 1105 830 Stool 25 550 Other: Voiding Method Indwelling Catheter Indwelling Catheter Indwelling Catheter - Exam GENERAL EXAM: 62-year-old white male, on 3 L of oxygen, with a pulse ox of 96%, he is drowsy but easily arousable, and patient does arouse to verbal stimuli, oriented to self, and place, occasionally agitated HEAD: Normocephalic/atraumatic. EYES: Normal reaction of pupils, equal size. Conjunctiva pink, sclera white. NOSE: Clear with pink turbinates. THROAT: No erythema or exudates. NECK: No masses, no JVD, no thyroid enlargement, no adenopathy. CHEST: No chest wall deformity. Symmetrical expansion. LUNGS: Equal air entry with no crackles, wheeze, rhonchi or dullness. CVS: Regular rate and rhythm, normal S1 and S2, no gallops, no murmurs, no rubs ABDOMEN: Soft, nontender. No hepatosplenomegaly, normal bowel sounds, no guarding or rigidity. EXTREMITIES: No clubbing, no edema, no cyanosis, 2+ pulses and upper and lower extremities. MUSCULOSKELETAL: Muscle strength and tone normal. SPINE: No scoliosis or deformity SKIN: No rashes CENTRAL NERVOUS SYSTEM: sedated No focal deficits, tone is normal in all 4 extremities. PSYCHIATRIC: Unable to assess, patient is sedated, intubated - Labs CBC & Chem 7: 10/08/18 16:23 10/08/18 05:31 Labs: Abnormal Lab Results - Last 24 Hours (Table) 10/06/18 10/08/18 10/08/18 Range/Units 10:45 05:31 05:31 WBC 3.7 L (3.8-10.6) k/uL RBC 1.98 L (4.30-5.90) m/uL Hgb 6.3 L* D (13.0-17.5) gm/dL Hct 20.1 L (39.0-53.0) % MCV 101.7 H (80.0-100.0) fL MCHC (31.0-37.0) g/dL RDW 17.2 H (11.5-15.5) % Plt Count 95 L (150-450) k/uL Lymphocytes # (Manual) (1.0-4.8) k/uL Chloride 121 H (98-107) mmol/L BUN 24 H (9-20) mg/dL Creatinine 0.47 L (0.66-1.25) mg/dL POC Glucose (mg/dL) (75-99) mg/dL Calcium 7.4 L (8.4-10.2) mg/dL Crossmatch See Detail 10/08/18 10/08/18 Range/Units 11:43 16:23 WBC (3.8-10.6) k/uL RBC 2.32 L (4.30-5.90) m/uL Hgb 7.0 L (13.0-17.5) gm/dL Hct 23.0 L (39.0-53.0) % MCV (80.0-100.0) fL MCHC 30.6 L (31.0-37.0) g/dL RDW 16.6 H (11.5-15.5) % Plt Count 107 L (150-450) k/uL Lymphocytes # (Manual) 0.65 L (1.0-4.8) k/uL Chloride (98-107) mmol/L BUN (9-20) mg/dL Creatinine (0.66-1.25) mg/dL POC Glucose (mg/dL) 122 H (75-99) mg/dL Calcium (8.4-10.2) mg/dL Crossmatch Microbiology - Last 24 Hours (Table) 10/04/18 22:43 Blood Culture - Preliminary Blood No Growth after 72 hours Assessment and Plan Plan: Assessment: Acute GI bleeding in a patient with known history of alcoholism, differential diagnoses includes peptic ulcer disease, esophageal varices, erosive gastritis, and even possibly diverticular disease/diverticulosis. he underwent EGD on 09/30/2018 was found to have a duodenal ulcer which was injected with epinephrine, but could not be clipped Acute hepatic encephalopathy with significantly elevated ammonia level secondary to underlying alcohol related liver disease. Continues to improve, remains on lactulose, today's serum ammonia level was 28 on 10/03/2018 history of underlying COPD, patient is now on bronchodilators in the form of DuoNeb. Benign essential hypertension Degenerative joint disease History of alcohol abuse Volume contraction alkalosis Hyponatremia and hyperchloremia related to free water deficit and infusion of 0.9 normal saline, corrected Plan: Continue with current medical treatment, vital signs are stable, patient will receive unit of packed red blood cells for hemoglobin of 6.3, GI service is following, patient remains on PPI therapy, ammonia level is improving. No acute events overnight, mentation is improving, maintaining safety precautions and aspiration precautions. Continue with nebulized bronchodilators, deep breathing and coughing. We'll follow I performed a history & physical examination of the patient and discussed their management with my nurse practitioner, Irena Ortiz. I reviewed the nurse practitioner's note and agree with the documented findings and plan of care. Lung sounds are positive for clear breath sounds. The findings and the impression was discussed with the patient. I attest to the documentation by the nurse practitioner. Time with Patient: Less than 30
[2018-10-08 18:30] LABS: Glucose,Whole Blood 116 mg/dL (75-99)
--- NOTE | 2018-10-08 20:48 | PN ---
PROGRESS NOTE DATE OF SERVICE: 10/08/2018. REASON FOR FOLLOW UP: Diarrhea. INTERVAL HISTORY: The patient is currently afebrile. The patient seems to be more awake, alert. He is breathing comfortably. Denies having any chest pain. Occasional cough. No abdominal pain. Still has diarrhea with a fecal management system on. PHYSICAL EXAMINATION: Blood pressure 121/67 with a pulse of 92, temperature 98.6, 95% on 3 L nasal cannula. General description is a middle aged male up in the bed in no distress. Respiratory system: Unlabored breathing with decreased breath sounds in the base. No wheeze. Heart S1, S2. Regular rate and rhythm. Abdomen soft. No tenderness. LABS: Hemoglobin 7, white count 3.8. BUN of 24, creatinine 0.47. Blood culture has been negative. Stool for C diff came back negative. DIAGNOSTIC IMPRESSION AND PLAN: 1. Patient with aspiration that has been adequately treated. 2. The patient diarrhea could be medication-related. The patient is currently getting lactulose. Dose may be cut back or Questran may be added as no evidence of any infectious etiology. ID will sign off. Please call back with any questions or concerns regarding the patient's care. MMODL / IJN: [id number] /
--- NOTE | 2018-10-08 22:10 | PN ---
PROGRESS NOTE I am covering for Dr. Trevino. DATE OF SERVICE: 10/08/2018 This is a 62-year-old gentleman who was admitted with acute GI bleed, duodenal ulcer. The patient had acute respiratory failure. Patient extubated. Patient mildly confused. Patient also complaining of some chills at this time. The patient being closely monitored. Multiple consultants are following the patient closely. Video fluoroscopic swallow test was done today which showed was noted. Full speech pathology report is awaited at this time. No chest pain or palpitations. Hemoglobin is 6.3. The patient received his fifth transfusion today. PAST MEDICAL HISTORY: Past medical history reviewed. REVIEW OF SYMPTOMS: Review of systems could not be taken. The patient is still confused. CURRENT MEDICATIONS: Reviewed and include: 1. DuoNeb q.i.d. p.r.n. 2. Cephulac 20 g daily. 3. Replacement protocols. 4. Narcan. 5. Mycostatin. 6. Protonix. 7. Vitamin B1. PHYSICAL EXAM: Patient is alert, oriented x1. Pulse 94, blood pressure 140/60, respirations 16, temperature normal. Pulse ox 92% on room air. HEENT: Normal. NECK: No jugular venous distention. CARDIOVASCULAR: S1, S2 muffled. RESPIRATORY: Breath sounds diminished in the bases. A few scattered rhonchi and crackles. ABDOMEN: Soft nontender. LEGS are no edema. No swelling. CENTRAL NERVOUS SYSTEM: Diffusely weak. LAB: Investigation at this time shows lab are WBC 3.2, hemoglobin 7, and glucose 116. ASSESSMENT: 1. Acute upper gastrointestinal bleeding with acute blood loss anemia with bleeding duodenal ulcer, status post multiple transfusions. 2. Change in mental status, acute metabolic encephalopathy, multifactorial. 3. Acute hypoxic respiratory failure from above, status post mechanical ventilation. 4. Possible aspiration pneumonia. 5. History of ETOH. 6. Hyperammonemia with possible chronic liver disease and cirrhosis of the liver. 7. Gallbladder mass history. 8. Leukocytosis. 9. Chronic obstructive pulmonary disease. 10.Gastroesophageal reflux disease. 11.Hypokalemia mild. 12.Thrombocytopenia. 13.History of gastroesophageal reflux disease. 14.History of degenerative joint disease. 15.Remote history of nicotine dependence. 16.FULL CODE. RECOMMENDATIONS AND DISCUSSION: Continue current medications. Continue with monitoring, symptomatic treatment. Otherwise, at this time, swallow evaluation noted. I would repeat a chest x-ray in the morning and continue to monitor. Overall prognosis guarded because of multiple complex medical issues and further recommendations to follow. PT/OT evaluation, possible ECF rehab once the patient is more ambulant and less confused. FLAKITA / PADMINI: [id number] / MTDD
[2018-10-09 00:04] LABS: Glucose,Whole Blood 118 mg/dL (75-99)
[2018-10-09 06:05] LABS: Glucose,Whole Blood 102 mg/dL (75-99)
[2018-10-09 06:08] LABS: Anisocytosis Slight; HCT 20.3 % (39.0-53.0); Hypochromasia Marked; MCHC 31.5 g/dL (31.0-37.0); MCV 98.6 fL (80.0-100.0); Macrocytosis Slight; Mean Platelet Volume 8.7; Platelet Count 104 k/uL (150-450); Poikilocytosis Moderate; RBC 2.06 m/uL (4.30-5.90); RDW 17.2 % (11.5-15.5); WBC 3.8 k/uL (3.8-10.6)
[2018-10-09 06:10] LABS: HGB 6.4 gm/dL (13.0-17.5)
[2018-10-09 06:14] LABS: African American GFR (CKD) >90 (>60 ml/min/1.73 sqM); Anion Gap 3 mmol/L; Blood Urea Nitrogen 24 mg/dL (9-20); Calcium 7.4 mg/dL (8.4-10.2); Carbon Dioxide 20 mmol/L (22-30); Chloride 125 mmol/L (98-107); Glucose 92 mg/dL (74-99); Potassium 3.8 mmol/L (3.5-5.1); Sodium 148 mmol/L (137-145)
[2018-10-09] MEDS: SODIUM CHLORIDE 0.9% 1,000 ML IV SCH ×2 (06:58→17:07)
[2018-10-09] MEDS: LACTULOSE 20 GM/30 ML CUP PO SCH (08:51)
[2018-10-09] MEDS: THIAMINE 100 MG TAB PO SCH ×2 (08:54→17:07)
[2018-10-09] MEDS: PANTOPRAZOLE 40 MG/10 ML VIAL IV SCH ×2 (08:54→20:40)
[2018-10-09] MEDS: IPRATROPIUM-ALBUTEROL 3 ML NEB INHALATION SCH ×4 (09:19→21:49)
[2018-10-09] MEDS: NYSTATIN 100,000 UNIT/ML SUSP 500,000 UNIT/5 ML CUP PO SCH ×4 (09:50→23:25)
[2018-10-09 11:46] LABS: Anisocytosis Slight; HCT 22.8 % (39.0-53.0); Hypochromasia Marked; MCH 30.1 pg (25.0-35.0); MCHC 30.6 g/dL (31.0-37.0); MCV 98.3 fL (80.0-100.0); Macrocytosis Slight; Mean Platelet Volume 8.9; Poikilocytosis Moderate; RBC 2.32 m/uL (4.30-5.90); RDW 16.8 % (11.5-15.5); WBC 3.7 k/uL (3.8-10.6)
[2018-10-09 11:50] LABS: Platelet Count 97 k/uL (150-450)
[2018-10-09 11:55] LABS: INR 1.7 (<1.2); Prothrombin Time 17.1 sec (9.0-12.0)
[2018-10-09 12:54] LABS: Glucose,Whole Blood 109 mg/dL (75-99)
--- NOTE | 2018-10-09 15:15 | US ---
EXAMINATION TYPE: US gallbladder DATE OF EXAM: 10/09/2018 COMPARISON: US dated 09/15/2018 CLINICAL HISTORY: RUQ pain. Patient's RN stated patient going for EGD today as patient has duodenal u lcer EXAM MEASUREMENTS: US is technically limited for organ assessment due to overlying bowel and duodenal gas. Attempted int ercostal scanning on liver and gallbladder. Liver Length: 10.0 cm Gallbladder Wall: 0.2 cm CBD: 0.4 cm Right Kidney: 10.1 x 7.2 x 5.2 cm Pancreas: Tail obscured by overlying bowel gas Liver: limitedly seen due to above observations; probable left lobe small liver cyst = 0.6 x 0.7 x 0 .6cm. Gallbladder: limitedly seen intercostally, but no sludge is seen today. The previously seen sonograp hic findings are not well delineated. Evidence for sonographic Willard's sign: no CBD: wnl Right Kidney: No hydronephrosis or masses seen Small amount of ascites is seen surrounding liver. IMPRESSION: 1. Markedly suboptimal examination. The previously seen possible gallbladder mass versus tumefactive sludge is not well appreciated on today's examination. MRI abdomen with and without contrast may be o f benefit for further evaluation. 2. Probable left hepatic lobe cyst as seen on the prior CT. 3. Trace amount of perihepatic ascites is visualized.
--- NOTE | 2018-10-09 15:17 | P.GSCN ---
History of Present Illness Consult date: 10/09/18 Reason for Consult: duodenal ulcer, gi bleed Requesting physician: Michelle eMjia History of present illness: CHIEF COMPLAINT: GI bleed HISTORY OF PRESENT ILLNESS: 62-year-old male admitted to the hospital secondary to GI bleed. Patient underwent EGD with Dr. Liriano on 06/30/18 revealing large nonbleeding ulcer in the duodenal bulb with epinephrine injection. Patients hemoglobin continues to trend downward. Hemoglobin this morning 6.4. 8.1 on October 08, 2018. Patient having dark stools. Denies nausea or vomiting. PAST MEDICAL HISTORY: See list. PAST SURGICAL HISTORY: See list. SOCIAL HISTORY: No illicit drug use. REVIEW OF SYSTEMS: CONSTITUTIONAL: Denies fever or chills. HEENT: Denies blurred vision, vision changes, or eye pain. Denies hemoptysis CARDIOVASCULAR: Denies chest pain or pressure. RESPIRATORY: No shortness of breath. GASTROINTESTINAL: Refer to HPI for pertinent findings HEMATOLOGIC: Denies bleeding disorders. GENITOURINARY: Denies any blood in urine. SKIN: Denies pruitis. Denies rash. PHYSICAL EXAM: VITAL SIGNS: Reviewed. GENERAL: Well-developed in no acute distress. HEENT: No sclera icterus. Extraocular movements grossly intact. Moist buccal mucosa. Head is atraumatic, normocephalic. ABDOMEN: Soft. Nondistended. Nontender. NEUROLOGIC: Alert and oriented. Cranial nerves II through XII grossly intact. ASSESSMENT: 1. GI bleed 2. Duodenal ulcer, status post EGD with epinephrine injection PLAN: Nothing by mouth. Patient scheduled for EGD this evening with GI service. Await results. Monitor hemoglobin. Further recommendations pending EGD Nurse practitioner note has been reviewed by physician. Signing provider agrees with the documented findings, assessment, and plan of care. 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 Retired from [employer]. He has traveled nationally and internationally for his work, nothing recent. Pet dog in the home. Without a current tobacco smoker or alcohol user Smoking Status: Former smoker Past Alcohol Use History: None Reported Additional Past Alcohol Use History / Comment(s): Patient denies daily drinking, also denies more than 14 drinks in a week. Past Drug Use History: None Reported - Past Family History Mother Family Medical History: GERD/Reflux Additional Family Medical History / Comment(s): of crohn's disease Father Family Medical History: Diabetes Mellitus Medications and Allergies Home Medications Medication Instructions Recorded Confirmed Type Albuterol Sulfate [Proair Hfa] 2 puff INHALATION RT-QID PRN 09/05/14 09/29/18 History Multivit-Min/FA/Lycopen/Lutein 1 tab PO DAILY 11/15/16 09/29/18 History [Centrum Silver Tablet] Albuterol Nebulized [Ventolin 2.5 mg INHALATION RT-QID PRN 11/26/17 09/29/18 History Nebulized] Thiamine [Vitamin B-1] 100 mg PO BID-W/MEALS #60 tab 09/16/18 09/29/18 Rx Allergies Allergy/AdvReac Type Severity Reaction Status Date / Time No Known Allergies Allergy Verified 09/29/18 14:04 Surgical - Exam Vital Signs Temp Pulse Resp BP Pulse Ox 98.4 F 127 H 18 125/72 86 L 09/29/18 13:26 09/29/18 13:26 09/29/18 13:26 09/29/18 13:26 09/29/18 13:26 Results - Labs 10/09/18 11:30 10/09/18 05:37 Abnormal Lab Results - Last 24 Hours (Table) 10/06/18 10/08/18 10/08/18 Range/Units 10:45 16:23 18:19 WBC (3.8-10.6) k/uL RBC 2.32 L (4.30-5.90) m/uL Hgb 7.0 L (13.0-17.5) gm/dL Hct 23.0 L (39.0-53.0) % MCHC 30.6 L (31.0-37.0) g/dL RDW 16.6 H (11.5-15.5) % Plt Count 107 L (150-450) k/uL Lymphocytes # (Manual) 0.65 L (1.0-4.8) k/uL PT (9.0-12.0) sec INR (<1.2) Sodium (137-145) mmol/L Chloride (98-107) mmol/L Carbon Dioxide (22-30) mmol/L BUN (9-20) mg/dL Creatinine (0.66-1.25) mg/dL POC Glucose (mg/dL) 116 H (75-99) mg/dL Calcium (8.4-10.2) mg/dL Crossmatch See Detail 10/08/18 10/09/18 10/09/18 Range/Units 23:51 05:37 05:37 WBC (3.8-10.6) k/uL RBC 2.06 L (4.30-5.90) m/uL Hgb 6.4 L* (13.0-17.5) gm/dL Hct 20.3 L (39.0-53.0) % MCHC (31.0-37.0) g/dL RDW 17.2 H (11.5-15.5) % Plt Count 104 L (150-450) k/uL Lymphocytes # (Manual) (1.0-4.8) k/uL PT (9.0-12.0) sec INR (<1.2) Sodium 148 H (137-145) mmol/L Chloride 125 H (98-107) mmol/L Carbon Dioxide 20 L (22-30) mmol/L BUN 24 H (9-20) mg/dL Creatinine 0.51 L (0.66-1.25) mg/dL POC Glucose (mg/dL) 118 H (75-99) mg/dL Calcium 7.4 L (8.4-10.2) mg/dL Crossmatch 10/09/18 10/09/18 10/09/18 Range/Units 05:54 11:30 11:30 WBC 3.7 L (3.8-10.6) k/uL RBC 2.32 L (4.30-5.90) m/uL Hgb 7.0 L (13.0-17.5) gm/dL Hct 22.8 L (39.0-53.0) % MCHC 30.6 L (31.0-37.0) g/dL RDW 16.8 H (11.5-15.5) % Plt Count 97 L (150-450) k/uL Lymphocytes # (Manual) (1.0-4.8) k/uL PT 17.1 H (9.0-12.0) sec INR 1.7 H (<1.2) Sodium (137-145) mmol/L Chloride (98-107) mmol/L Carbon Dioxide (22-30) mmol/L BUN (9-20) mg/dL Creatinine (0.66-1.25) mg/dL POC Glucose (mg/dL) 102 H (75-99) mg/dL Calcium (8.4-10.2) mg/dL Crossmatch 10/09/18 Range/Units 11:54 WBC (3.8-10.6) k/uL RBC (4.30-5.90) m/uL Hgb (13.0-17.5) gm/dL Hct (39.0-53.0) % MCHC (31.0-37.0) g/dL RDW (11.5-15.5) % Plt Count (150-450) k/uL Lymphocytes # (Manual) (1.0-4.8) k/uL PT (9.0-12.0) sec INR (<1.2) Sodium (137-145) mmol/L Chloride (98-107) mmol/L Carbon Dioxide (22-30) mmol/L BUN (9-20) mg/dL Creatinine (0.66-1.25) mg/dL POC Glucose (mg/dL) 109 H (75-99) mg/dL Calcium (8.4-10.2) mg/dL Crossmatch Microbiology - Last 24 Hours (Table) 10/04/18 22:43 Blood Culture - Preliminary Blood No Growth after 96 hours Diabetes panel 10/09/18 Range/Units 05:37 Sodium 148 H (137-145) mmol/L Potassium 3.8 (3.5-5.1) mmol/L Chloride 125 H (98-107) mmol/L Carbon Dioxide 20 L (22-30) mmol/L BUN 24 H (9-20) mg/dL Creatinine 0.51 L (0.66-1.25) mg/dL Glucose 92 (74-99) mg/dL Calcium 7.4 L (8.4-10.2) mg/dL Calcium panel 10/09/18 Range/Units 05:37 Calcium 7.4 L (8.4-10.2) mg/dL Pituitary panel 10/09/18 Range/Units 05:37 Sodium 148 H (137-145) mmol/L Potassium 3.8 (3.5-5.1) mmol/L Chloride 125 H (98-107) mmol/L Carbon Dioxide 20 L (22-30) mmol/L BUN 24 H (9-20) mg/dL Creatinine 0.51 L (0.66-1.25) mg/dL Glucose 92 (74-99) mg/dL Calcium 7.4 L (8.4-10.2) mg/dL Adrenal panel 10/09/18 Range/Units 05:37 Sodium 148 H (137-145) mmol/L Potassium 3.8 (3.5-5.1) mmol/L Chloride 125 H (98-107) mmol/L Carbon Dioxide 20 L (22-30) mmol/L BUN 24 H (9-20) mg/dL Creatinine 0.51 L (0.66-1.25) mg/dL Glucose 92 (74-99) mg/dL Calcium 7.4 L (8.4-10.2) mg/dL
--- NOTE | 2018-10-09 15:32 | P.PN ---
Subjective Progress Note Date: 10/09/18 this is a 62-year-old white male who presented to the ER today with 1 day history of for large bloody bowel movements.this was associated with nausea and vomiting, he vomited some dark-looking material. Denied any hematemesis. Denied any melena. Apparently the patient was recently at [facility] for abdominal pain, exact workup is not clear at the time of this dictation, but he was discharged out of [place] about 2 days ago. Since discharge, the patient has been feeling rundown and fatigued.on admission his initial hemoglobin was 8.8, since then patient had further episodes of bright red blood per rectum and bloody bowel movements, follow-up hemoglobin is 7.3, patient will be receiving blood transfusion, and arrangements were made for the patient to be admitted to the ICU.the patient himself is a very poor historian, apparently when he arrived he was extremely agitated, he is known to have history of alcohol abuse, hence he was given Ativan and he was placed on the C1wa protocol.during my evaluation, the patient was noted to be sedated, calm, cannot give much history, quite let hargic, arousable but easily gets agitated. Apparently his ammonia level was high, hence I recommended nasogastric tube to be placed and to start lactulose. As the patient may have obviously hepatic encephalopathy.lactic acid on admission was 4.3, hence fluid boluses were given. Patient is not requiring any pressors, and he seems to be hemodynamically stable at this point.patient is also known to have history of COPD, mild clubbing noted on physical examination, hence he was placed on DuoNeb updrafts 4 times a day and when necessary. Patient was also placed on Rocephin for his presentation of hepatic encephalopathy and hyperammonemia. On 09/30/2018 patient seen in follow-up in the intensive care unit. Patient is on mechanical ventilator, sedated, and ventilating's are assist-control mode of ventilation with a rate of 12, tidal and 400, FiO2 of 40% and PEEP of 5, this morning his blood gases showed pO2 of 133, pCO2 33, and pH of 7.39, this was done on FiO2 of 50%, FiO2 had since been dropped down to 40%. IVs include 0.9 normal saline at a rate of 75 ML per hour, Diprivan and is at 50 mics per kilo per minute. Patient received 2 units of packed red blood cells for hemoglobin of 7.3, this morning hemoglobin is 8.4, with blood cell count is 10.7, platelet count is 159, and sodium is 142, potassium is 4.5, chloride is 118, CO2 17, BUN is 44, creatinine 0.87, urinalysis was clear, no signs of infection, drug screen was positive for opiates and benzodiazepines. Patient has been afebrile, was dynamically stable, his chest x-ray has been reviewed, showing COPD and newly developing infiltrate in the right upper lobe. Antibiotic coverage in the form of Rocephin. Blood cultures are pending, sputum culture will be sent. he is receiving lactulose per OG tube, and ammonia level is down to 64 on today's labs. We'll catheter is in, and patient is nonoliguric. Lung sounds are clear. On 10/01/2018 patient seen in follow-up in the intensive care unit, he remains sedated, and intubated, on mechanical ventilator. Yesterday patient underwent EGD, and was found to have a duodenal ulcer, which could not be clipped related to its location. Was injected with epinephrine. Today's labs have been reviewed, showing white blood cell count of 7.7, hemoglobin is 7.4, serum sodium is 142, potassium 3.9, chloride is 120, CO2 is 18, B1 is 36, creatinine 0.84. She received 2 units of packed red blood cells this admission. FMS system is in place, draining liquid melanotic stool. Hemodynamic patient is stable, heart rate is controlled. Lung sounds are clear, patient's comfortable on the ventilator, currently on assist control mode of ventilation with a rate of 12, tidal volume 400, FiO2 of 40%, and PEEP of 5, this morning his blood gases were reviewed, showing pO2 of 132, pCO2 of 31, pH of 7.40, and FiO2 was dropped down to 30%. Currently on IVs including 0.9 normal saline at 75 ML per hour, propofol is at 50 mics per kilo per minute. No tube feedings right now. We'll proceed with sedation holiday today, to assess mentation, and likely proceed with weaning trials, with pressure support of 5, and CPAP of 5. Chest x-ray has been reviewed, showing chronic changes, without acute pulmonary disease. On 10/02/2018 patient seen in follow-up in the intensive care unit. Patient has been off sedation since this morning, but remains very sedated. Intubated on mechanical ventilator, on assist control mode of ventilation with a rate of 12, tidal vital 400, FiO2 30% and PEEP of 5. This morning blood gases were reviewed, showing a pO2 of 64, pCO2 46, and pH of 7.36. Chest x-ray this morning showed no acute pulmonary process, lungs are clear, ET-tube and a NG- tube in the appropriate positions. No acute events overnight, yesterday patient was given sedation holiday, however he never did fully wake up and follow commands, and in the evening became quite tachypneic and was placed back on sedation. IV 0.9 normal saline at a rate of 75 ML per hour, no other drips, this morning's blood work has been reviewed, showing white blood cell count is 6.9, hemoglobin of 7.3, the patient has a fecal management system in place, and he is putting out liquid melanotic stool. Receiving lactulose, he did produce 1100 mL of liquid stool in the last 24 hours. He is developing fluid volume contraction alkalosis and hypernatremia. He has been nothing by mouth, no nutrition since admission. We will inquire with GI service whether tube feedings can be started. Lung sounds are clear. Microbiology data has been reviewed, showing blood, urine and sputum cultures are no growth so far, final cultures are pending. Better coverage in the form of Rocephin and Flagyl. On 10/03/2018 patient seen in follow-up in the intensive care unit, he remains sedated, intubated on mechanical ventilator, current vent settings are assist- control mode of ventilation with a rate of 12, tidal 400, FiO2 of 30% and PEEP of 5. This morning his blood gases showed pO2 of 94, pCO2 34, pH of 7.45. IV fluids D5W at a rate of 75 ML per hour, TPN is a 30 ML per hour, and propofol is at 30 mics per kilo per minute. This morning's lab work has been reviewed, showing white blood cell count of 5.0, hemoglobin of 6.8, patient was given a unit of blood, sodium is 140, potassium is 4.1, chloride is 116, CO2 is 22, BUN is 23, creatinine is 0.59. Ammonia level is down to 28, yesterday we decreased the lactulose to once daily, she patient was given a daily traction of sedation, did not become fully awake, or following commands, did become quite asynchronous and tachypneic, and had to be re-sedated. Today's chest x-ray has been reviewed, showing stable changes of COPD without acute process. Patient is afebrile, blood urine and sputum cultures are negative. Some liquid dark green output, with no visible blood in the stool. She remains on Rocephin and Flagyl for antibiotic coverage. TPN is at 30 ML per hour per GI service recommendations. On 10/04/2018 patient seen in follow-up in the intensive care unit, he remains sedated, intubated on mechanical ventilator, this morning's blood gases showed a pO2 of 75, pCO2 35, and pH of 7.45, this was done on assist control mode of ventilation with a rate of 12, tidal vital 400, FiO2 30% and PEEP of 5. This morning chest x-rays has been reviewed, showing stable changes of COPD without acute process and small left pleural effusion. Yesterday patient was given the daily traction of sedation, he started moving his extremities, however he did not open his eyes and follow commands, brain CT was obtained and showed no acute intracranial abnormality. Patient was placed on the PSV 5 and pressure-support of 5 yesterday and did sustain an for 4 hours, and then placed back on assist control mode of ventilation for the night. This morning he was placed back on pressure-support of 8, with the CPAP of 5, he is tolerating it well so far. Sedation is on hold, this morning blood work was reviewed, showing white blood cell count of 5.7, hemoglobin of 7.3, serum sodium is 137, potassium is 4.2, chloride is 112, CO2 is 23, BUN is 19, creatinine 0.53. Afebrile, vital signs are stable, microbiology data has been reviewed, showing only Lisa albicans in the sputum culture, patient has been on empiric antibiotics in the form of Rocephin and Flagyl, will discontinue them. Remains on TPN at 79 per hour, and D5W at a rate of 75 ML per hour. On 10/06/2018 patient name in follow-up in the intensive care unit. Patient has been on pressure-support of 8 and CPAP of 5 and FiO2 of 40% for last 48 hours, has tolerated very well. We were just waiting for the patient to become more awake, patient will not open his eyes, but he is moving his upper extremities, and he is at times following simple commands, clapping his hands in response to Dr. Valero clapping his hands with the patient. This might blood gases were revi ewed, showing pO2 of 121, pCO2 of 36, and pH of 7.46, white blood cell count was 5.4, hemoglobin is 6.9, and patient will receive a unit of packed red blood cells, platelet count is 105, serum sodium is 140, potassium is 3.8, chloride is 114, CO2 is 26, B1 is 21, creatinine 0.49. Patient has been on TPN, patient has also been started on tube feedings. Which we will hold today, sounds are clear, today's chest x-ray has been reviewed, chest x-ray showed bibasilar airspace disease and small pleural effusions. No fever or chills, vital signs are stable, data has been reviewed, showing sputum culture with Lisa albicans only. CT has shown no intracranial process, patient remains on lactulose at 20 mg daily. Fecal management system is draining greenish colored liquid output. No visible blood. She remains on PPI therapy at 40 mg twice daily. On 10/07/2018 patient seen in follow-up in the intensive care unit, patient is more awake, following commands, does have some periods of agitation, but her for the most part, he is currently on 3 L of oxygen with a pulse ox of 96%, hemodynamically stable, afebrile. Denies any abdominal pain, fecal management system remains in place, with the liquid greenish and sometimes darker liquid output, today's labs have been reviewed, showing blood cell, 4.7, hemoglobin of 8.1, serum sodium is 145, potassium is 4.0, chloride is 118, CO2 is 21, BUN is 26, creatinine is 0.6. Ammonia level is 13, C. diff was negative. We'll obtain a bedside swallow evaluation today. TPN has been discontinued. His chest x-ray shows a bilateral lower lobe infiltrate with small pleural effusions, no fever or chills, all cultures remain negative thus far, with exception of Lisa albicans in the sputum. On 10/08/2018 patient seen in follow-up in the intensive care unit, still is drowsy at times, but more awake on today's exam, oriented to self and place, at times gets it a little agitated, redirected, vital signs remain stable, afebrile, hemodynamically stable, he is on room air, with a pulse ox of 98%, culture data remains negative thus far, today's lab work has been reviewed, and patient's hemoglobin is down to 6.3, with no clear-cut evidence of bleeding, fecal management system remains in place with liquid green output which is darker at times, C. diff was negative, no tachycardia, no hypotension, white blood cell count is 3.7, serum sodium is 143, potassium 3.9, chloride is 121, BUN is 24 creatinine is 0.47. Apparently patient had some coughing and gurgling in the back of the throat with the bedside swallow evaluation, and in view of that patient underwent modified barium swallow which showed transient penetration upon ingestion of thin barium, but no aspiration. He was started on oral diet. His any difficulty breathing, denies any abdominal pain. No new chest x-rays today. Lim catheter is in place, patient is nonoliguric. On 10/09/2018 I'm seeing this patient for a follow-up. This morning he seems to be much more alert and awake compared to yesterday. Nevertheless, the patient's been having melanotic stool since yesterday and there is a drop in hemoglobin down to 6.4 level. Accordingly, I give the patient unit of packed RBC and hemoglobin is up to 7.0. His INR is at 1.7 with a PT of 17.1. GI was again consulted and we are contemplating another scope along with a surgical consultation knowing that the earlier scope that was done showed a large duodenal ulcer that was not bleeding at that point in time the patient was even epinephrine injection and ulcer for better control. The patient has no other complaints for now. He is moving all 4 extremity is without any limitation. No cough. No sputum production. No chest tightness. No wheezing. No altered mentation. This is the most awake. I have seen this patient over the past year days. He was taking lactulose 20 mg on a daily basis. He was also on IV fluids with normal saline at the rate of 75 mL an hour. Objective - Vital Signs Vital signs: Vital Signs Temp 98.9 F 10/09/18 12:00 Pulse 95 10/09/18 14:00 Resp 12 10/09/18 14:00 BP 114/88 10/09/18 14:00 Pulse Ox 94 L 10/09/18 14:00 Intake & Output 10/08/18 10/09/18 10/09/18 18:59 06:59 18:59 Intake Total 1210 975 835 Output Total 1380 1500 710 Balance -170 -525 125 Weight 84 kg 85.9 kg Intake: IV 900 975 525 Sodium Chloride 0.9% 1, 900 975 525 000 ml @ 75 mls/hr IV . [id number] [facility] Rx#:[id number] Blood Product 310 0 310 Rc As-1 Unit 0 310 [id number] Rc As-1 Unit 310 [id number] Output: Urine 830 1100 610 Stool 550 400 100 Other: Voiding Method Indwelling Catheter Indwelling Catheter Indwelling Catheter # Voids 1 1 # Bowel Movements 1 - Exam GENERAL EXAM: 62-year-old white male, on 3 L of oxygen, with a pulse ox of 96%, he is drowsy but easily arousable, and patient does arouse to verbal stimuli, oriented to self, and place, occasionally agitated HEAD: Normocephalic/atraumatic. EYES: Normal reaction of pupils, equal size. Conjunctiva pink, sclera white. NOSE: Clear with pink turbinates. THROAT: No erythema or exudates. NECK: No masses, no JVD, no thyroid enlargement, no adenopathy. CHEST: No chest wall deformity. Symmetrical expansion. LUNGS: Equal air entry with no crackles, wheeze, rhonchi or dullness. CVS: Regular rate and rhythm, normal S1 and S2, no gallops, no murmurs, no rubs ABDOMEN: Soft, nontender. No hepatosplenomegaly, normal bowel sounds, no guarding or rigidity. EXTREMITIES: No clubbing, no edema, no cyanosis, 2+ pulses and upper and lower extremities. MUSCULOSKELETAL: Muscle strength and tone normal. SPINE: No scoliosis or deformity SKIN: No rashes CENTRAL NERVOUS SYSTEM: sedated No focal deficits, tone is normal in all 4 extremities. PSYCHIATRIC: Unable to assess, patient is sedated, intubated - Labs CBC & Chem 7: 10/09/18 11:30 10/09/18 05:37 Labs: Abnormal Lab Results - Last 24 Hours (Table) 10/06/18 10/08/18 10/08/18 Range/Units 10:45 16:23 18:19 WBC (3.8-10.6) k/uL RBC 2.32 L (4.30-5.90) m/uL Hgb 7.0 L (13.0-17.5) gm/dL Hct 23.0 L (39.0-53.0) % MCHC 30.6 L (31.0-37.0) g/dL RDW 16.6 H (11.5-15.5) % Plt Count 107 L (150-450) k/uL Lymphocytes # (Manual) 0.65 L (1.0-4.8) k/uL PT (9.0-12.0) sec INR (<1.2) Sodium (137-145) mmol/L Chloride (98-107) mmol/L Carbon Dioxide (22-30) mmol/L BUN (9-20) mg/dL Creatinine (0.66-1.25) mg/dL POC Glucose (mg/dL) 116 H (75-99) mg/dL Calcium (8.4-10.2) mg/dL Crossmatch See Detail 10/08/18 10/09/18 10/09/18 Range/Units 23:51 05:37 05:37 WBC (3.8-10.6) k/uL RBC 2.06 L (4.30-5.90) m/uL Hgb 6.4 L* (13.0-17.5) gm/dL Hct 20.3 L (39.0-53.0) % MCHC (31.0-37.0) g/dL RDW 17.2 H (11.5-15.5) % Plt Count 104 L (150-450) k/uL Lymphocytes # (Manual) (1.0-4.8) k/uL PT (9.0-12.0) sec INR (<1.2) Sodium 148 H (137-145) mmol/L Chloride 125 H (98-107) mmol/L Carbon Dioxide 20 L (22-30) mmol/L BUN 24 H (9-20) mg/dL Creatinine 0.51 L (0.66-1.25) mg/dL POC Glucose (mg/dL) 118 H (75-99) mg/dL Calcium 7.4 L (8.4-10.2) mg/dL Crossmatch 10/09/18 10/09/18 10/09/18 Range/Units 05:54 11:30 11:30 WBC 3.7 L (3.8-10.6) k/uL RBC 2.32 L (4.30-5.90) m/uL Hgb 7.0 L (13.0-17.5) gm/dL Hct 22.8 L (39.0-53.0) % MCHC 30.6 L (31.0-37.0) g/dL RDW 16.8 H (11.5-15.5) % Plt Count 97 L (150-450) k/uL Lymphocytes # (Manual) (1.0-4.8) k/uL PT 17.1 H (9.0-12.0) sec INR 1.7 H (<1.2) Sodium (137-145) mmol/L Chloride (98-107) mmol/L Carbon Dioxide (22-30) mmol/L BUN (9-20) mg/dL Creatinine (0.66-1.25) mg/dL POC Glucose (mg/dL) 102 H (75-99) mg/dL Calcium (8.4-10.2) mg/dL Crossmatch 10/09/18 Range/Units 11:54 WBC (3.8-10.6) k/uL RBC (4.30-5.90) m/uL Hgb (13.0-17.5) gm/dL Hct (39.0-53.0) % MCHC (31.0-37.0) g/dL RDW (11.5-15.5) % Plt Count (150-450) k/uL Lymphocytes # (Manual) (1.0-4.8) k/uL PT (9.0-12.0) sec INR (<1.2) Sodium (137-145) mmol/L Chloride (98-107) mmol/L Carbon Dioxide (22-30) mmol/L BUN (9-20) mg/dL Creatinine (0.66-1.25) mg/dL POC Glucose (mg/dL) 109 H (75-99) mg/dL Calcium (8.4-10.2) mg/dL Crossmatch Microbiology - Last 24 Hours (Table) 10/04/18 22:43 Blood Culture - Preliminary Blood No Growth after 96 hours Assessment and Plan Plan: 1 ongoing and recurrent upper GI bleeding in a patient with known history of alcoholism, differential diagnoses includes peptic ulcer disease, esophageal varices, erosive gastritis, and even possibly diverticular disease/diverticulo sis. he underwent EGD on 09/30/2018 was found to have a duodenal ulcer which was injected with epinephrine, but could not be clipped. The patient was stable for the past few days and this morning he dropped his hemoglobin down to 6.4 along with melanotic stool. The patient is hemodynamically stable and the patient is going to undergo another EGD today. 2 Acute hepatic encephalopathy with significantly elevated ammonia level secondary to underlying alcohol related liver disease improved 3 COPD, patient is now on bronchodilators in the form of DuoNeb. 4 Benign essential hypertension 5 Degenerative joint disease 6 History of alcohol abuse 7Poor functional status based on above-mentioned comorbidities 8 mild coagulopathy secondary to chronic liver disease Plan Emma surgical consultation. GI is to repeat endoscopy. May need a surgical intervention if there is recurrent and ongoing bleeding of duodenal ulcer that cannot be controlled endoscopically. Monitor hemoglobin. A unit of transfusion with packed RBC was given the patient's hemoglobin is at 7. Coags are mildly ab normal with an INR of 1.7 with a PT of 17.1. Platelet counts are chronically low related to chronic liver disease. Hepatic encephalopathy is improved. We'll continue to follow. Family is at the bedside. Condition is critical secondary to above-mentioned comorbidities.
[2018-10-09 17:46] LABS: Anisocytosis Slight; HCT 24.8 % (39.0-53.0); HGB 7.9 gm/dL (13.0-17.5); Hypochromasia Marked; MCH 31.1 pg (25.0-35.0); MCHC 31.6 g/dL (31.0-37.0); MCV 98.3 fL (80.0-100.0); Macrocytosis Slight; Mean Platelet Volume 9.2; Poikilocytosis Marked; RBC 2.53 m/uL (4.30-5.90); RDW 17.5 % (11.5-15.5); WBC 4.3 k/uL (3.8-10.6)
[2018-10-09 17:47] LABS: Platelet Count 98 k/uL (150-450)
[2018-10-09 18:12] LABS: Glucose,Whole Blood 116 mg/dL (75-99)
--- NOTE | 2018-10-09 21:31 | XR ---
EXAMINATION TYPE: XR chest 1V portable DATE OF EXAM: 10/09/2018 COMPARISON: 10/07/2018 HISTORY: Heart failure. Short of breath TECHNIQUE: Single frontal view of the chest is obtained. FINDINGS: Heart size is fairly normal. There is left-sided central venous catheter with tip in the s uperior vena cava. There are cervical ribs. There is no pleural effusion. There is no gross heart pedro lure. There is some coarsening of lung markings in the left lower lobe. IMPRESSION: Mild infiltrate left lower lobe improved slightly compared to last exam. No gross heart failure. No pleural effusion.
--- NOTE | 2018-10-09 22:08 | PN ---
PROGRESS NOTE I am covering for Dr. Trevino. DATE OF SERVICE: 10/09/2018 This 62-year-old gentleman admitted with acute GI bleed had a bleeding duodenal ulcer. The patient also had change in mental status. A gallbladder ultrasound was done today which showed previously seen gallbladder mass versus tumefactive sludge, not well appreciated. Patient's hemoglobin has gone to 6.3. The patient received one transfusion. EGD is planned for tomorrow. WBC is 4.3 and a surgical evaluation also has been sought. Multiple consultants are following the patient closely. He is being monitored in the ICU at this time. Past medical history reviewed. REVIEW OF SYSTEMS: CARDIOVASCULAR SYSTEM: No angina, palpitations. RESPIRATORY SYSTEM: As mentioned earlier. GI: As mentioned earlier. : No dysuria or retention. NERVOUS SYSTEM: No numbness, weakness. CURRENT MEDICATIONS: Reviewed. They include: 1. DuoNeb q.i.d. and p.r.n. 2. Cephulac 20 mg daily. 3. Magnesium, phosphorus, potassium replacement protocol. 4. Narcan. 5. Protonix 40 mg IV b.i.d. 6. Vitamin B1, 100 mg p.o. b.i.d. PHYSICAL EXAMINATION: Patient is alert, oriented x2. Pulse is 84, blood pressure 111/83, respiration 15, temperature 98.5, pulse ox 94% on 2 L. HEENT: Conjunctivae normal. Oral mucosa pale. NECK: No jugular venous distention. No carotid bruit. No lymph node enlargement. CARDIOVASCULAR SYSTEM: S1, S2 muffled. Ejection systolic murmur. RESPIRATORY SYSTEM: Breath sounds diminished at the bases. A few scattered rhonchi. No crackles. ABDOMEN: Soft, non-tender. LEGS: No edema. No swelling. NERVOUS SYSTEM: No focal deficit. LABS: WBC 4.3, hemoglobin 7.9. INR is 1.7. Sodium is 148. Albumin is 1.5. ASSESSMENT: 1. Acute upper gastrointestinal bleeding with acute blood loss anemia with a bleeding peptic ulcer, status post multiple transfusions with recurrent gastrointestinal bleed. 2. Change in mental status, acute metabolic encephalopathy, multifactorial. 3. Acute hypoxic respiratory failure from above, status post mechanical ventilation. 4. Possible aspiration pneumonia. 5. History of ETOH. 6. Hyperammonemia with possible chronic liver disease and cirrhosis of the liver. 7. Gallbladder mass history. 8. Leukocytosis. 9. Chronic obstructive pulmonary disease. 10.Gastroesophageal reflux disease. 11.Hypokalemia, mild. 12.Thrombocytopenia. 13.History of gastroesophageal reflux disease. 14.History of degenerative joint disease. 15.Remote history of nicotine dependence. 16.FULL CODE. RECOMMENDATIONS AND DISCUSSION: I recommend to continue current medications, continue with the monitoring, symptomatic treatment. Otherwise at this time I recommend multiple transfusions. Hemoglobin has come up to 7.9 today. So far the patient has received 6 units of transfusions. Surgery has seen the patient and recommended continuing to follow the patient along with EGD. I would also recommend a course of antibiotics. Otherwise, chest x-ray reviewed. Guarded prognosis because of multiple complex medical issues. I would also recommend a new chest x-ray. Guarded prognosis because of multiple complex medical issues. Further recommendations to follow. MMRICOL / BILLYN: [id number] /
[2018-10-09 23:59] LABS: Glucose,Whole Blood 96 mg/dL (75-99)
[2018-10-10 05:29] LABS: Anisocytosis Slight; HCT 20.3 % (39.0-53.0); Hypochromasia Marked; MCH 32.5 pg (25.0-35.0); MCHC 34.2 g/dL (31.0-37.0); MCV 95.2 fL (80.0-100.0); Macrocytosis Slight; Mean Platelet Volume 9.3; Poikilocytosis Marked; RBC 2.14 m/uL (4.30-5.90); RDW 17.8 % (11.5-15.5); WBC 3.6 k/uL (3.8-10.6)
[2018-10-10 05:35] LABS: African American GFR (CKD) >90 (>60 ml/min/1.73 sqM); Anion Gap 2 mmol/L; Blood Urea Nitrogen 25 mg/dL (9-20); Calcium 7.4 mg/dL (8.4-10.2); Carbon Dioxide 20 mmol/L (22-30); Chloride 126 mmol/L (98-107); Glucose 94 mg/dL (74-99); Potassium 3.7 mmol/L (3.5-5.1); Sodium 148 mmol/L (137-145)
[2018-10-10 05:47] LABS: HGB 6.9 gm/dL (13.0-17.5); Platelet Count 85 k/uL (150-450)
[2018-10-10 05:51] LABS: Glucose,Whole Blood 98 mg/dL (75-99)
[2018-10-10] MEDS: IPRATROPIUM-ALBUTEROL 3 ML NEB INHALATION SCH ×2 (08:04→11:35)
[2018-10-10] MEDS: PANTOPRAZOLE 40 MG/10 ML VIAL IV SCH (08:26)
[2018-10-10] MEDS: POTASSIUM CHLORIDE 10 MEQ in WATER FOR INJECTION 1 100ML.BAG IVPB SCH ×2 (08:27→12:04)
[2018-10-10] MEDS: SODIUM CHLORIDE 0.9% 1,000 ML IV SCH (08:27)
[2018-10-10] MEDS ORDERED: PROPOFOL 10 MG/ML 20 ML VIAL IV ONE (09:38)
[2018-10-10] MEDS ORDERED: LIDOCAINE 1% INJ 10MG/ML (20 ML MDV) ONE (09:38)
[2018-10-10] MEDS ORDERED: PHENYLEPHRINE-0.9% NACL SYG 1 MG/10 ML SYRINGE ONE (09:38)
[2018-10-10] MEDS ORDERED: SODIUM CHLORIDE 0.9% 100 ML BAG ONE (09:38)
[2018-10-10] MEDS ORDERED: MIDAZOLAM 2 MG/2 ML VIAL ONE (09:38)
[2018-10-10] MEDS ORDERED: TRANEXAMIC ACID 1,000 MG/10 ML VIAL ONE (09:38)
[2018-10-10] MEDS ORDERED: SUCCINYLCHOLINE CHLORIDE 100 MG/5 ML SYR IV ONE (09:38)
[2018-10-10] MEDS ORDERED: VECURONIUM 10 MG VIAL IV ONE (09:38)
[2018-10-10] MEDS ORDERED: IV FLUID CONTINUATION 200 ML IV ONE (09:43)
[2018-10-10] MEDS ORDERED: EPINEPHrine 10 ML SYRINGE (0.1 MG/ML) MISCELLANE ONE (09:57)
[2018-10-10] MEDS ORDERED: TRANEXAMIC ACID 1,000 MG in SODIUM CHLORIDE 0.9% 100 ML IV STA (10:19)
--- NOTE | 2018-10-10 10:42 | P.PN ---
Subjective Progress Note Date: 10/10/18 CHIEF COMPLAINT: Acute upper GI bleed HISTORY OF PRESENT ILLNESS: I was immediately called to the endoscopy suite by railway signal operator Dr. Liriano regarding uncontrolled upper GI bleed. Per discussion with endoscopist, attend of epinephrine at the bulb of the duodenum was unsuccessful and the patient began to bleed. At the time of assessment, systolic pressure blood pressure was 130s. Separately, patient's hemoglobin had acutely dropped from 7.9-6.9. Patient has been hospitalized here for beyond 10 days. At the same time frame, platelets had acutely dropped to 240 on admission to the less than 80s today. On review of chart, patient has been progressively coagulopathic with severe cirrhosis of the liver as identified on computed tomography scan obtained one month ago. Upon discussion with endoscopist, patient has severe lung disease including liver disease as well and is a question transfer. Overall this is a 62-year-old gentleman with multiple comorbidities including emphysema of the lungs, severe liver cirrhosis, hospitalization beyond 10 days, who presents with acute gastrointestinal bleed now uncontrolled with overlying coagulopathy. Aggressive records obtained per person's chart. PAST MEDICAL HISTORY: See list. PAST SURGICAL HISTORY: See list. MEDICATIONS: See list. ALLERGIES: See list. SOCIAL HISTORY: History of alcohol abuse FAMILY HISTORY: Please see list REVIEW OF ORGAN SYSTEMS: CONSTITUTIONAL: No fevers since admission. BMI 25.0. EYES: No reports of trouble with vision. No glasses. HEENT: No reports of nosebleeds or difficulty swallowing. RESPIRATORY: Has severe chronic obstructive pulmonary disease. Has emphysema for lungs. On nasal cannula supplemental oxygen. CARDIOVASCULAR: No recent heart attacks while hospitalized. GASTROINTESTINAL: Per chart, history of cirrhosis of the liver including gallstones. GENITOURINARY: No recent urinary tract infection. NEUROLOGICAL: No known history of recent strokes or seizure disorder MUSCULOSKELETAL: History of back pain, stiffness or joint arthritis. SKIN: No current skin cancer. No rash. PSYCHIATRIC: No history of suicidal thoughts. ENDOCRINE: No history of thyroid disorders. No history of blood sugar glucose intolerance. HEME/LYMPHATIC: Please see above. Recent thrombocytopenia during hospitalization ALLERGY/IMMUNOLOGY: No immunoglobulin therapy. No immune deficiencies. BREAST: No history of breast lumps, pain or nipple discharge. PHYSICAL EXAM: VITALS: Reviewed CONSTITUTIONAL: Currently acute distress. Airway placed per anesthesia. EYES: Conjuctivae without sclera icterus. No active drainage. HEAD, EARS, NOSE, THROAT: Moist buccal mucosa. Head is atraumatic, normocepha lic. No nasal drainage. NECK: No JV distention. No thyroidomegaly. RESPIRATORY: Airbag ventilation. Equal bilateral excursions CARDIOVASCULAR: Regular rate and rhythm. Palpable 2+ radial pulses. ABDOMEN: Soft. No peritonitis. Nondistended. LYMPH: No neck lymphadenopathy. MUSCULOSKELETAL: Nail and fingers with good capillary refill. SKIN: Warm and well perfused. NEUROLOGIC: Unable to obtain. Patient being airbag. PSYCH: Unable to obtain. Patient being airbag. CLINCAL LABS: Reviewed. Precipitous drop of platelets from over 240,000 under 85,000. Hemoglobin dropped within 24 hours from 7.9-6.9 RADIOLOGY: Report reviewed. Past CT of the abdomen report consistent with nodular liver disease and gallstones. MEDICAL TEST: Endoscopy reviewed. I was personally present for the patient's endoscopy with clot identified along the bulb IMAGING: Independently reviewed confirming severe cirrhosis of the liver. No inflammation of the pancreas or duodenum identified from September 2018 film. Ultrasound of gallbladder independently reviewed demonstrating gallstones without inflammation. RECORDS: previous old records reviewed ASSESSMENT: 1. Acute upper GI bleed secondary to bleeding duodenal ulcer 2. New coagulopathy with thrombocytopenia, generalized anemia 3. Severe cirrhosis of the liver PLAN: 1. I have recommended TXA as patient has generalized coagulopathy including severe thrombocytopenia which make any intervention at this time even more high risk. 2. Recommend nasogastric tube decompression. 3. Also recommend proton pump trip 4. Per discussion with GI, plan for patient for transfer to tertiary care center Thank you for this kind consultation. Critical care time 38 minutes Objective - Vital Signs Vital signs: Vital Signs Temp 98.7 F 10/10/18 08:00 Pulse 85 10/10/18 08:20 Resp 15 10/10/18 08:00 BP 105/58 10/10/18 08:00 Pulse Ox 93 L 10/10/18 08:00 Intake & Output 10/09/18 10/10/18 10/10/18 18:59 06:59 18:59 Intake Total 1135 900 250 Output Total 2485 6291 480 Balance -780 -2320 -230 Weight 84.4 kg Intake: IV 825 900 250 Potassium Chloride 10 meq 100 In Water For Injection 1 100ml.bag @ 100 mls/hr IVPB Q1H [facility] Rx#: [id number] Sodium Chloride 0.9% 1, 825 900 150 000 ml @ 75 mls/hr IV . [id number] [facility] Rx#:[id number] Blood Product 310 Rc As-1 Unit 310 [id number] Output: Urine 1015 1220 480 Stool 900 2000 Other: Voiding Method Indwelling Catheter Indwelling Catheter # Voids 1 1 # Bowel Movements 1 - Labs CBC & Chem 7: 10/10/18 05:00 10/10/18 05:00 Labs: Abnormal Lab Results - Last 24 Hours (Table) 10/09/18 10/09/18 10/09/18 Range/Units 11:30 11:30 11:54 WBC 3.7 L (3.8-10.6) k/uL RBC 2.32 L (4.30-5.90) m/uL Hgb 7.0 L (13.0-17.5) gm/dL Hct 22.8 L (39.0-53.0) % MCHC 30.6 L (31.0-37.0) g/dL RDW 16.8 H (11.5-15.5) % Plt Count 97 L (150-450) k/uL PT 17.1 H (9.0-12.0) sec INR 1.7 H (<1.2) Sodium (137-145) mmol/L Chloride (98-107) mmol/L Carbon Dioxide (22-30) mmol/L BUN (9-20) mg/dL Creatinine (0.66-1.25) mg/dL POC Glucose (mg/dL) 109 H (75-99) mg/dL Calcium (8.4-10.2) mg/dL Crossmatch 10/09/18 10/09/18 10/10/18 Range/Units 17:30 18:01 05:00 WBC (3.8-10.6) k/uL RBC 2.53 L (4.30-5.90) m/uL Hgb 7.9 L (13.0-17.5) gm/dL Hct 24.8 L (39.0-53.0) % MCHC (31.0-37.0) g/dL RDW 17.5 H (11.5-15.5) % Plt Count 98 L (150-450) k/uL PT (9.0-12.0) sec INR (<1.2) Sodium 148 H (137-145) mmol/L Chloride 126 H (98-107) mmol/L Carbon Dioxide 20 L (22-30) mmol/L BUN 25 H (9-20) mg/dL Creatinine 0.52 L (0.66-1.25) mg/dL POC Glucose (mg/dL) 116 H (75-99) mg/dL Calcium 7.4 L (8.4-10.2) mg/dL Crossmatch 10/10/18 10/10/18 Range/Units 05:00 07:19 WBC 3.6 L (3.8-10.6) k/uL RBC 2.14 L (4.30-5.90) m/uL Hgb 6.9 L* (13.0-17.5) gm/dL Hct 20.3 L (39.0-53.0) % MCHC (31.0-37.0) g/dL RDW 17.8 H (11.5-15.5) % Plt Count 85 L (150-450) k/uL PT (9.0-12.0) sec INR (<1.2) Sodium (137-145) mmol/L Chloride (98-107) mmol/L Carbon Dioxide (22-30) mmol/L BUN (9-20) mg/dL Creatinine (0.66-1.25) mg/dL POC Glucose (mg/dL) (75-99) mg/dL Calcium (8.4-10.2) mg/dL Crossmatch See Detail Microbiology - Last 24 Hours (Table) 10/04/18 22:43 Blood Culture - Preliminary Blood No Growth after 120 hours Assessment and Plan (1) Acute blood loss anemia Current Visit: Yes Status: Acute Code(s): D62 - ACUTE POSTHEMORRHAGIC ANEMIA SNOMED Code(s): 037030079 (2) Alcoholic liver disease Current Visit: Yes Status: Acute Code(s): K70.9 - ALCOHOLIC LIVER DISEASE, UNSPECIFIED SNOMED Code(s): 36618224 (3) Anemia associated with acute blood loss Current Visit: Yes Status: Acute Code(s): D62 - ACUTE POSTHEMORRHAGIC ANEMIA SNOMED Code(s): 740889135 (4) Duodenal ulcer Current Visit: Yes Status: Acute Code(s): K26.9 - DUODENAL ULCER, UNSP ACUTE OR CHRONIC, W/O HEMOR OR PERF SNOMED Code(s): 64710393 (5) Endotracheally intubated Current Visit: Yes Status: Acute Code(s): Z97.8 - PRESENCE OF OTHER SPECIFIED DEVICES SNOMED Code(s): 365280818 (6) GI hemorrhage Current Visit: Yes Status: Acute Code(s): K92.2 - GASTROINTESTINAL HEMORRHAG E, UNSPECIFIED SNOMED Code(s): 68208812 (7) Acute exacerbation of chronic obstructive airways disease Current Visit: No Status: Acute Code(s): J44.1 - CHRONIC OBSTRUCTIVE PULMO NARY DISEASE W (ACUTE) EXACERBATION SNOMED Code(s): 211545286 (8) Adult respiratory distress syndrome Current Visit: No Status: Acute Code(s): J80 - ACUTE RESPIRATORY DISTRESS SYNDROME SNOMED Code(s): 17765188
[2018-10-10 11:44] LABS: Glucose,Whole Blood 102 mg/dL (75-99)
--- NOTE | 2018-10-10 11:48 | P.PCN ---
Date of Procedure: 10/10/18 Description of Procedure: BRIEF HISTORY: 62-year-old male with a medical history significant for GERD, COPD, alcoholic liver disease, and EtOH abuse who presented to the hospital with complaints of blood per rectum. The patient presented with reported four large bowel move ments which were productive of gross red blood. There is also reports of 1 episode of hematemesis. The patient had a recent admission at [facility], and was previously at our facility where he complained of abdominal pain. At that time hemoglobin had been 12.2. On presentation to have a hemoglobin of 8.8 which subsequently fell to 7.3 and increased to 8.4. According to the patient's son there is a questionable previous history of peptic ulcer disease when the patient presented with signs and symptoms of GI bleeding. At that time the patient was taken for EGD which was significant for a large 2 cm cratered ulcer found in the duodenal bulb and into the sweep without any active bleeding, clot or high risk stigmata noted. There was some minimal oozing of blood around the edge of the ulcer at that time and epinephrine was injected with hemostasis achieved. During the patient's hospitalization he is continued to remain anemic and loose blood with montez melena noted yesterday and requiring multiple transfusions. PROCEDURE PERFORMED: Esophagogastroduodenoscopy with epinephrine injection. PREOPERATIVE DIAGNOSIS: Duodenal ulcer, anemia of acute blood loss, melena. ESTIMATED BLOOD LOSS: Minimal. IV sedation per anesthesia. PROCEDURE: After informed consent was obtained, the patient was brought into the endoscopy unit. IV sedation was administered by Anesthesia under continuous monitoring. Initially the Olympus GIF-190 video endoscope was inserted into the mouth. Esophagus intubated without any difficulty. It was gradually advanced into the stomach and duodenum and carefully examined. There was a large ulcer in the duodenal bulb and the into the duodenal sweep measuring at least 2 cm in size, the ulcer was not bleeding and at this time the visible vessel was noted in the center of the ulcer. Again there was some mild oozing of blood along the edges of the ulcer and 3 mL of epinephrine was injected at which time the ulcer bleeding became much more vigorous. 2 additional cc of epinephrine were attempted to control bleeding but were unsuccessful. At this time the scope was withdrawn into the stomach to suction the decision by anesthesia was for intubation to protect the patient's airway. After intubation the endoscope was reinserted into the mouth through the esophagus and stomach and back to the ulcer at this time a large clot was noted over the ulcer which was no longer actively bleeding. Physicians from the surgical service and wrecker operator service were called to the room and in discussion with the surgical team their recommendations were for administration of TXA, and for no further manipulation or intervention on the area with plan for referral to tertiary center. The scope at this time was withdrawn to the stomach, adequately insufflated with air, and upon careful examination, mucosa of the antrum, body, cardia and the fundus appeared normal. The scope was then withdrawn into the esophagus. Hiatal hernia was noted. The GE junction was located at 39 cm from the incisors. The esophagus appeared normal. There were no erosions or ulcerations seen and the patient tolerated the procedure well. IMPRESSION: 1. Large 2 cm cratered ulcer in the duodenal bulb and sweep with visible vessel. Active bleeding from ulcer during the procedure however at the conclusion of the endoscopy a clot was noted over the ulcer with no active bleeding at that time. Epinephrine was injected. RECOMMENDATIONS: The findings of this examination were discussed with the patient's son Allen. Discussion with the surgical service regarding further endoscopic intervention, and it was their recommendation that TXA be administered, and that the clot should not be disturbed endoscopically with plan for continued PPI drip, NG tube for decompression, transfusion of blood and transfer to a tertiary center with consideration for CT angiography with coiling given the patients multiple medica l comorbidities and high risk for surgical intervention. I agree with the plan and relayed it to the wrecker operator service as well as the patient's son.
--- NOTE | 2018-10-10 11:52 | DS ---
DISCHARGE SUMMARY FINAL DIAGNOSES: 1. Acute upper gastrointestinal bleeding from bleeding duodenal ulcer with acute blood loss anemia after status post multiple transfusions with recurrent gastrointestinal bleed. 2. Change in mental status acute metabolic acidosis, multifactorial. 3. Acute hypoxic respiratory failure from above, on mechanical ventilation. 4. Possible aspiration pneumonia. 5. History of ETOH. 6. Hyperammonemia with possible chronic liver disease and cirrhosis of the liver. 7. Gallbladder mass history. 8. Leukocytosis. 9. Chronic obstructive pulmonary disease. 10.Gastroesophageal reflux disease. 11.Hypokalemia mild. 12.Thrombocytopenia. 13.History of gastroesophageal reflux disease. 14.History of degenerative joint disease. 15.Remote history of nicotine dependence. 16.FULL CODE. DISCHARGE DISPOSITION: The patient will be discharged in stable condition with guarded prognosis. Total time taken 35 minutes. Discussed the case with Jovany [facility] MICU and the fellow and the patient will be transferred to MICU for further evaluation and treatment. HISTORY OF PRESENT ILLNESS: This 62-year-old gentleman with past medical history of multiple medical problems as mentioned above, admitted with GI bleed. The patient had a complicated medical course in the hospital. Patient is monitored in ICU. Initially, patient was intubated. The patient had multiple endoscopies and the patient had recurrence of bleeding as evidenced by hemoglobin going down to 6.9. Dr. Liriano performed a repeat endoscopy showed significant duodenal ulcer with blood clot, no active bleeding, but coagulation could not be done. The patient was evaluated by surgery also. Dr. Braswell recommended tranexamic acid, but however because of multiple complex medical issues, the patient was recommended to be transferred to surgical tertiary care center for further evaluation including possible angio/surgery at this time. On exam, vitals are stable. The patient is intubated. Patient monitored in ICU. Please refer to medication reconciliation for current medications. Please refer to multiple consultation notes and progress notes for further information. Prognosis remained guarded throughout hospitalization. MMODL / IJN: [id number] /
[2018-10-10] MEDS ORDERED: PROPOFOL 1,000 MG in EMPTY BAG 1 BAG IV SCH (12:00)
[2018-10-10] MEDS: NYSTATIN 100,000 UNIT/ML SUSP 500,000 UNIT/5 ML CUP PO SCH (12:04)
[2018-10-10 12:34] LABS: ABG HCO3 19 mmol/L (21-25); ABG Oxygen Saturation 98.1 % (94-97); ABG PCO2 33 mmHg (35-45); ABG PH 7.36 (7.35-7.45); ABG PO2 118 mmHg (83-108); ABG TCO2 20 mmol/L (19-24); Allen Test Performed? Yes
[2018-10-10 12:49] VITALS: RESP 21
[2018-10-10 13:04] VITALS: BP 144/84; PULSE 85; TEMP 98.4
--- NOTE | 2018-10-10 13:41 | P.PN ---
Subjective Progress Note Date: 10/10/18 this is a 62-year-old white male who presented to the ER today with 1 day history of for large bloody bowel movements.this was associated with nausea and vomiting, he vomited some dark-looking material. Denied any hematemesis. Denied any melena. Apparently the patient was recently at [facility] for abdominal pain, exact workup is not clear at the time of this dictation, but he was discharged out of [facility] about 2 days ago. Since discharge, the patient has been feeling rundown and fatigued.on admission his initial hemoglobin was 8.8, since then patient had further episodes of bright red blood per rectum and bloody bowel movements, follow-up hemoglobin is 7.3, patient will be receiving blood transfusion, and arrangements were made for the patient to be admitted to the ICU.the patient himself is a very poor historian, apparently when he arrived he was extremely agitated, he is known to have history of alcohol abuse, hence he was given Ativan and he was placed on the C1wa protocol.during my evaluation, the patient was noted to be sedated, calm, cannot give much history, quite let hargic, arousable but easily gets agitated. Apparently his ammonia level was high, hence I recommended nasogastric tube to be placed and to start lactulose. As the patient may have obviously hepatic encephalopathy.lactic acid on admission was 4.3, hence fluid boluses were given. Patient is not requiring any pressors, and he seems to be hemodynamically stable at this point.patient is also known to have history of COPD, mild clubbing noted on physical examination, hence he was placed on DuoNeb updrafts 4 times a day and when necessary. Patient was also placed on Rocephin for his presentation of hepatic encephalopathy and hyperammonemia. On 09/30/2018 patient seen in follow-up in the intensive care unit. Patient is on mechanical ventilator, sedated, and ventilating's are assist-control mode of ventilation with a rate of 12, tidal and 400, FiO2 of 40% and PEEP of 5, this morning his blood gases showed pO2 of 133, pCO2 33, and pH of 7.39, this was done on FiO2 of 50%, FiO2 had since been dropped down to 40%. IVs include 0.9 normal saline at a rate of 75 ML per hour, Diprivan and is at 50 mics per kilo per minute. Patient received 2 units of packed red blood cells for hemoglobin of 7.3, this morning hemoglobin is 8.4, with blood cell count is 10.7, platelet count is 159, and sodium is 142, potassium is 4.5, chloride is 118, CO2 17, BUN is 44, creatinine 0.87, urinalysis was clear, no signs of infection, drug screen was positive for opiates and benzodiazepines. Patient has been afebrile, was dynamically stable, his chest x-ray has been reviewed, showing COPD and newly developing infiltrate in the right upper lobe. Antibiotic coverage in the form of Rocephin. Blood cultures are pending, sputum culture will be sent. he is receiving lactulose per OG tube, and ammonia level is down to 64 on today's labs. We'll catheter is in, and patient is nonoliguric. Lung sounds are clear. On 10/01/2018 patient seen in follow-up in the intensive care unit, he remains sedated, and intubated, on mechanical ventilator. Yesterday patient underwent EGD, and was found to have a duodenal ulcer, which could not be clipped related to its location. Was injected with epinephrine. Today's labs have been reviewed, showing white blood cell count of 7.7, hemoglobin is 7.4, serum sodium is 142, potassium 3.9, chloride is 120, CO2 is 18, B1 is 36, creatinine 0.84. She received 2 units of packed red blood cells this admission. FMS system is in place, draining liquid melanotic stool. Hemodynamic patient is stable, heart rate is controlled. Lung sounds are clear, patient's comfortable on the ventilator, currently on assist control mode of ventilation with a rate of 12, tidal volume 400, FiO2 of 40%, and PEEP of 5, this morning his blood gases were reviewed, showing pO2 of 132, pCO2 of 31, pH of 7.40, and FiO2 was dropped down to 30%. Currently on IVs including 0.9 normal saline at 75 ML per hour, propofol is at 50 mics per kilo per minute. No tube feedings right now. We'll proceed with sedation holiday today, to assess mentation, and likely proceed with weaning trials, with pressure support of 5, and CPAP of 5. Chest x-ray has been reviewed, showing chronic changes, without acute pulmonary disease. On 10/02/2018 patient seen in follow-up in the intensive care unit. Patient has been off sedation since this morning, but remains very sedated. Intubated on mechanical ventilator, on assist control mode of ventilation with a rate of 12, tidal vital 400, FiO2 30% and PEEP of 5. This morning blood gases were reviewed, showing a pO2 of 64, pCO2 46, and pH of 7.36. Chest x-ray this morning showed no acute pulmonary process, lungs are clear, ET-tube and a NG- tube in the appropriate positions. No acute events overnight, yesterday patient was given sedation holiday, however he never did fully wake up and follow commands, and in the evening became quite tachypneic and was placed back on sedation. IV 0.9 normal saline at a rate of 75 ML per hour, no other drips, this morning's blood work has been reviewed, showing white blood cell count is 6.9, hemoglobin of 7.3, the patient has a fecal management system in place, and he is putting out liquid melanotic stool. Receiving lactulose, he did produce 1100 mL of liquid stool in the last 24 hours. He is developing fluid volume contraction alkalosis and hypernatremia. He has been nothing by mouth, no nutrition since admission. We will inquire with GI service whether tube feedings can be started. Lung sounds are clear. Microbiology data has been reviewed, showing blood, urine and sputum cultures are no growth so far, final cultures are pending. Better coverage in the form of Rocephin and Flagyl. On 10/03/2018 patient seen in follow-up in the intensive care unit, he remains sedated, intubated on mechanical ventilator, current vent settings are assist- control mode of ventilation with a rate of 12, tidal 400, FiO2 of 30% and PEEP of 5. This morning his blood gases showed pO2 of 94, pCO2 34, pH of 7.45. IV fluids D5W at a rate of 75 ML per hour, TPN is a 30 ML per hour, and propofol is at 30 mics per kilo per minute. This morning's lab work has been reviewed, showing white blood cell count of 5.0, hemoglobin of 6.8, patient was given a unit of blood, sodium is 140, potassium is 4.1, chloride is 116, CO2 is 22, BUN is 23, creatinine is 0.59. Ammonia level is down to 28, yesterday we decreased the lactulose to once daily, she patient was given a daily traction of sedation, did not become fully awake, or following commands, did become quite asynchronous and tachypneic, and had to be re-sedated. Today's chest x-ray has been reviewed, showing stable changes of COPD without acute process. Patient is afebrile, blood urine and sputum cultures are negative. Some liquid dark green output, with no visible blood in the stool. She remains on Rocephin and Flagyl for antibiotic coverage. TPN is at 30 ML per hour per GI service recommendations. On 10/04/2018 patient seen in follow-up in the intensive care unit, he remains sedated, intubated on mechanical ventilator, this morning's blood gases showed a pO2 of 75, pCO2 35, and pH of 7.45, this was done on assist control mode of ventilation with a rate of 12, tidal vital 400, FiO2 30% and PEEP of 5. This morning chest x-rays has been reviewed, showing stable changes of COPD without acute process and small left pleural effusion. Yesterday patient was given the daily traction of sedation, he started moving his extremities, however he did not open his eyes and follow commands, brain CT was obtained and showed no acute intracranial abnormality. Patient was placed on the PSV 5 and pressure-support of 5 yesterday and did sustain an for 4 hours, and then placed back on assist control mode of ventilation for the night. This morning he was placed back on pressure-support of 8, with the CPAP of 5, he is tolerating it well so far. Sedation is on hold, this morning blood work was reviewed, showing white blood cell count of 5.7, hemoglobin of 7.3, serum sodium is 137, potassium is 4.2, chloride is 112, CO2 is 23, BUN is 19, creatinine 0.53. Afebrile, vital signs are stable, microbiology data has been reviewed, showing only Lisa albicans in the sputum culture, patient has been on empiric antibiotics in the form of Rocephin and Flagyl, will discontinue them. Remains on TPN at 79 per hour, and D5W at a rate of 75 ML per hour. On 10/06/2018 patient name in follow-up in the intensive care unit. Patient has been on pressure-support of 8 and CPAP of 5 and FiO2 of 40% for last 48 hours, has tolerated very well. We were just waiting for the patient to become more awake, patient will not open his eyes, but he is moving his upper extremities, and he is at times following simple commands, clapping his hands in response to Dr. Valero clapping his hands with the patient. This might blood gases were revi ewed, showing pO2 of 121, pCO2 of 36, and pH of 7.46, white blood cell count was 5.4, hemoglobin is 6.9, and patient will receive a unit of packed red blood cells, platelet count is 105, serum sodium is 140, potassium is 3.8, chloride is 114, CO2 is 26, B1 is 21, creatinine 0.49. Patient has been on TPN, patient has also been started on tube feedings. Which we will hold today, sounds are clear, today's chest x-ray has been reviewed, chest x-ray showed bibasilar airspace disease and small pleural effusions. No fever or chills, vital signs are stable, data has been reviewed, showing sputum culture with Lisa albicans only. CT has shown no intracranial process, patient remains on lactulose at 20 mg daily. Fecal management system is draining greenish colored liquid output. No visible blood. She remains on PPI therapy at 40 mg twice daily. On 10/07/2018 patient seen in follow-up in the intensive care unit, patient is more awake, following commands, does have some periods of agitation, but her for the most part, he is currently on 3 L of oxygen with a pulse ox of 96%, hemodynamically stable, afebrile. Denies any abdominal pain, fecal management system remains in place, with the liquid greenish and sometimes darker liquid output, today's labs have been reviewed, showing blood cell, 4.7, hemoglobin of 8.1, serum sodium is 145, potassium is 4.0, chloride is 118, CO2 is 21, BUN is 26, creatinine is 0.6. Ammonia level is 13, C. diff was negative. We'll obtain a bedside swallow evaluation today. TPN has been discontinued. His chest x-ray shows a bilateral lower lobe infiltrate with small pleural effusions, no fever or chills, all cultures remain negative thus far, with exception of Lisa albicans in the sputum. On 10/08/2018 patient seen in follow-up in the intensive care unit, still is drowsy at times, but more awake on today's exam, oriented to self and place, at times gets it a little agitated, redirected, vital signs remain stable, afebrile, hemodynamically stable, he is on room air, with a pulse ox of 98%, culture data remains negative thus far, today's lab work has been reviewed, and patient's hemoglobin is down to 6.3, with no clear-cut evidence of bleeding, fecal management system remains in place with liquid green output which is darker at times, C. diff was negative, no tachycardia, no hypotension, white blood cell count is 3.7, serum sodium is 143, potassium 3.9, chloride is 121, BUN is 24 creatinine is 0.47. Apparently patient had some coughing and gurgling in the back of the throat with the bedside swallow evaluation, and in view of that patient underwent modified barium swallow which showed transient penetration upon ingestion of thin barium, but no aspiration. He was started on oral diet. His any difficulty breathing, denies any abdominal pain. No new chest x-rays today. Lim catheter is in place, patient is nonoliguric. On 10/09/2018 I'm seeing this patient for a follow-up. This morning he seems to be much more alert and awake compared to yesterday. Nevertheless, the patient's been having melanotic stool since yesterday and there is a drop in hemoglobin down to 6.4 level. Accordingly, I give the patient unit of packed RBC and hemoglobin is up to 7.0. His INR is at 1.7 with a PT of 17.1. GI was again consulted and we are contemplating another scope along with a surgical consultation knowing that the earlier scope that was done showed a large duodenal ulcer that was not bleeding at that point in time the patient was even epinephrine injection and ulcer for better control. The patient has no other complaints for now. He is moving all 4 extremity is without any limitation. No cough. No sputum production. No chest tightness. No wheezing. No altered mentation. This is the most awake. I have seen this patient over the past year days. He was taking lactulose 20 mg on a daily basis. He was also on IV fluids with normal saline at the rate of 75 mL an hour. Today's evaluation of 10/10/2018, and due to ongoing concern of bleed, the patient was taken again to endoscopy for another EGD. This was done at the endoscopy suite. During the procedure, the patient encounter some respiratory distress and ultimately had to be intubated for airway protection and at the same time there was evidence of upper GI bleeding. The endoscopy showed large to centimeter crater ulcers in the duodenal bulb and sweep with visible vessel. Active bleeding from the ulcer during the procedure was seen and at the conclusion of the procedure there was a clot noted over the ulcer with no active bleeding. Epinephrine was also injected. Please refer to the EGD note for further details. I reviewed the findings. I also discussed this with the endoscopist. The patient may need a surgical evaluation. For that reason, we are going to transfer this patient to [facility] for a surgical evaluation taken account the patient's chronic medical problem isn't comorbidities including a coagulopathy secondary to his chronic liver disease. Hemoglobin today was 6. time the patient was given a unit of packed RBC and the patient remained hemodynamically stable throughout the procedure. The patient was kept on sedation. He was placed on mechanical ventilator and his most recent blood gas after arriving to the intensive care unit showed a pH of 7.3 9 with a pCO2 of 32 and pO2 of 118. His was sedated with propofol and is calm and comfortable. His blood gases was done with an FiO2 of 60% with a PEEP of 5. His tidal volume is at 500. Running electrolytes showed a sodium level of 148. Normal renal function with a creatinine of 0.5. He is also receiving normal saline at the rate of 75 mL an hour. He remains on IV Protonix. Objective - Vital Signs Vital signs: Vital Signs Temp 98.4 F 10/10/18 13:00 Pulse 85 10/10/18 13:00 Resp 21 10/10/18 13:00 BP 144/84 10/10/18 13:00 Pulse Ox 99 10/10/18 13:00 Intake & Output 10/09/18 10/10/18 10/10/18 18:59 06:59 18:59 Intake Total 7700 919 8209.153 Output Total 1915 3220 730 Balance -780 -2320 477.153 Weight 84.4 kg Intake: IV 825 900 775 Potassium Chloride 10 meq 200 In Water For Injection 1 100ml.bag @ 100 mls/hr IVPB Q1H ASHLEY Rx#: [id number] Sodium Chloride 0.9% 1, 825 900 375 000 ml @ 75 mls/hr IV . [id number] ASHLEY Rx#:[id number] Intake, IV Titration 12.153 Amount Propofol 1,000 mg In 12.153 Empty Bag 1 bag @ Titrate IV .Q0M ASHLEY Rx#: [id number] Blood Product 310 420 Rc As-1 Unit 310 [id number] Rc As-1 Unit 310 [id number] Rc As-1 Unit 110 [id number] Output: Urine 1015 1220 730 Stool 900 2000 Other: Voiding Method Indwelling Catheter Indwelling Catheter # Voids 1 1 # Bowel Movements 1 - Exam GENERAL EXAM: Sedated, comfortable intubated on a mechanical ventilator. Orogastric and orotracheal tube are both in place. HEAD: Normocephalic/atraumatic. EYES: Normal reaction of pupils, equal size. Conjunctiva pink, sclera white. NOSE: Clear with pink turbinates. THROAT: No erythema or exudates. NECK: No masses, no JVD, no thyroid enlargement, no adenopathy. CHEST: No chest wall deformity. Symmetrical expansion. LUNGS: Equal air entry with no crackles, wheeze, rhonchi or dullness. CVS: Regular rate and rhythm, normal S1 and S2, no gallops, no murmurs, no rubs ABDOMEN: Soft, nontender. No hepatosplenomegaly, normal bowel sounds, no guarding or rigidity. EXTREMITIES: No clubbing, no edema, no cyanosis, 2+ pulses and upper and lower extremities. MUSCULOSKELETAL: Muscle strength and tone normal. SPINE: No scoliosis or deformity SKIN: No rashes CENTRAL NERVOUS SYSTEM: Patient is sedated with propofol and the patient is quite synchronous with the mechanical ventilator. No agitation. He withdraws to deep painful stimulation 4 extremities. No facial asymmetry. - Labs CBC & Chem 7: 10/10/18 05:00 10/10/18 05:00 Labs: Abnormal Lab Results - Last 24 Hours (Table) 10/09/18 10/09/18 10/10/18 Range/Units 17:30 18:01 05:00 WBC (3.8-10.6) k/uL RBC 2.53 L (4.30-5.90) m/uL Hgb 7.9 L (13.0-17.5) gm/dL Hct 24.8 L (39.0-53.0) % RDW 17.5 H (11.5-15.5) % Plt Count 98 L (150-450) k/uL ABG pCO2 (35-45) mmHg ABG pO2 (83-108) mmHg ABG HCO3 (21-25) mmol/L ABG O2 Saturation (94-97) % Sodium 148 H (137-145) mmol/L Chloride 126 H (98-107) mmol/L Carbon Dioxide 20 L (22-30) mmol/L BUN 25 H (9-20) mg/dL Creatinine 0.52 L (0.66-1.25) mg/dL POC Glucose (mg/dL) 116 H (75-99) mg/dL Calcium 7.4 L (8.4-10.2) mg/dL Crossmatch 10/10/18 10/10/18 10/10/18 Range/Units 05:00 07: 11:32 WBC 3.6 L (3.8-10.6) k/uL RBC 2.14 L (4.30-5.90) m/uL Hgb 6.9 L* (13.0-17.5) gm/dL Hct 20.3 L (39.0-53.0) % RDW 17.8 H (11.5-15.5) % Plt Count 85 L (150-450) k/uL ABG pCO2 (35-45) mmHg ABG pO2 (83-108) mmHg ABG HCO3 (21-25) mmol/L ABG O2 Saturation (94-97) % Sodium (137-145) mmol/L Chloride (98-107) mmol/L Carbon Dioxide (22-30) mmol/L BUN (9-20) mg/dL Creatinine (0.66-1.25) mg/dL POC Glucose (mg/dL) 102 H (75-99) mg/dL Calcium (8.4-10.2) mg/dL Crossmatch See Detail 10/10/18 Range/Units 12:30 WBC (3.8-10.6) k/uL RBC (4.30-5.90) m/uL Hgb (13.0-17.5) gm/dL Hct (39.0-53.0) % RDW (11.5-15.5) % Plt Count (150-450) k/uL ABG pCO2 33 L (35-45) mmHg ABG pO2 118 H (83-108) mmHg ABG HCO3 19 L (21-25) mmol/L ABG O2 Saturation 98.1 H (94-97) % Sodium (137-145) mmol/L Chloride (98-107) mmol/L Carbon Dioxide (22-30) mmol/L BUN (9-20) mg/dL Creatinine (0.66-1.25) mg/dL POC Glucose (mg/dL) (75-99) mg/dL Calcium (8.4-10.2) mg/dL Crossmatch Microbiology - Last 24 Hours (Table) 10/09/18 21:05 Urine Culture - Preliminary Urine,Catheterized 10/04/18 22:43 Blood Culture - Preliminary Blood No Growth after 120 hours Assessment and Plan Plan: 1 ongoing and recurrent upper GI bleeding in a patient with known history of alcoholism, with large 2 cm ulcerated duodenal bulb with visible vessel. Epinephrine was injected and there is a clot formation over the ulcer without evidence of any acute bleeding for now. Hemoglobin is at this point then and the patient was given a unit of packed RBC. Note that during the procedure, the patient had to be intubated for airway protection knowing that there was ongoing upper GI bleeding. He is hemodynamically stable at this point on IV Protonix. General surgeries on the case. No plans to do any surgical intervention this point in time and the patient will be transferred to a tertiary care center for another evaluation regarding the duodenal ulcer and the need for surgery. 2 Acute hepatic encephalopathy with significantly elevated ammonia level secondary to underlying alcohol related liver disease improved 3 COPD, patient is now on bronchodilators in the form of DuoNeb. 4 Benign essential hypertension 5 Degenerative joint disease 6 History of alcohol abuse 7Poor functional status based on above-mentioned comorbidities 8 mild coagulopathy secondary to chronic liver disease in addition to chronic thrombocytopenia with a platelet count of 85. 9 acute respiratory failure and the patient was intubated in the endoscopy suite for airway protection. He did have some mild infiltration of the left lower lobe yesterday's x-ray in the follow-up x-rays of the chest is to follow. Plan Patient will need a surgical evaluation due to ongoing bleeding of this duodenal ulcer. Local surgeons are quite hesitant in doing any intervention based on his comorbidities, chronic liver disease and coagulopathy. He'll be transferred to surgical Center for a second opinion regarding the surgical approach of controlling this leads which is emanating from the duodenal ulcer. Continue IV Protonix. Based on the findings there is a clot and there is no active bleeding in the duodenal ulcer. Epinephrine was injected. Correlation profile was noted. Patient will be kept intubated on a mechanical ventilator for now and he'll be transferred to [facility] while being intubated on mechanical ventil ator. Blood gases was noted. This is unchanged. PH is exposed to be done. Hemoglobin is to be repeated prior to her being transferred to make sure there is stable hemoglobin prior to him being released from our hospital. We'll continue to follow. This is a critically care evaluation that was done more than 30 minutes. Time with Patient: Greater than 30
--- NOTE | 2018-10-11 11:19 | CDI ---
Documentation Clarification Form Date: 10/11/2018 From: Raisa Gregg Phone: If questions call July Mckeon @ [phone], Hours-8:30 am & 5 pm M- F Admit Date: 09/29/2018 3:23:00 PM Patient Name: Real Yoder Visit Number: [id number] Discharge Date: 10/10/2018 3:46:00 PM ATTENTION: The Clinical Documentation Specialists (CDI) and [facility] Coding Staff appreciate your assistance in clarifying documentation. Please respond to the clarification below the line at the bottom and electronically sign. The CDI & [facility] Coding staff will review the response and follow-up if needed. Please note: Queries are made part of the Legal Health Record. If you have any questions, please contact the author of this message via ITS. Dr. Gabriella Wong Conflicting documentation has been found in the medical record: Infectious consult requested for sepsis. Dr Gonzalez states patient with no fever however did have elevated whte cout could be more likely reactive patient initial xay has been reported negative for any acute infiltrate subsequently the patient intubated to protect his airway and a CXR showed RUL infilitrate concern for possible aspiration pneumonitis. History/Risk Factors: GI bleeding d/t duodenal ulcer, ABLA, acute hepatic encephalopathy Clinical Indicators: WBC-13.0, neutrophils-10.2, lactic acid-4.3, lactic ac sepsis reflux-Y, total bilirubin-1.5 Treatment: IV fluids, IV Rocephin In your opinion, what is the most clinically appropriate diagnosis for this patient? Sepsis ruled in Sepsis ruled out Other explanation of clinical findings Unable to determine (no explanation for clinical findings) nable to determine MTDD
== END 2018-10-10 15:46 | disposition short-term general hospital (02) | DRG 377 ==
LOC: EC 13:24 → 3SCARD 15:23 → 2SICU 18:51
PROVIDERS: ADMIT Family Medicine; ATTEND Family Medicine
PROC: 30233N1 Transfusion of Nonautologous Red Blood Cells into Peripheral Vein, Percutaneous Approach (ICD-10-PCS; 2018-09-29)
PROC: 0D9670Z Drainage of Stomach with Drainage Device, Via Natural or Artificial Opening (ICD-10-PCS; 2018-09-29)
PROC: 3E0G8GC Introduction of Other Therapeutic Substance into Upper GI, Via Natural or Artificial Opening Endoscopic (ICD-10-PCS; 2018-09-30)
PROC: 0DJ08ZZ Inspection of Upper Intestinal Tract, Via Natural or Artificial Opening Endoscopic (ICD-10-PCS; 2018-09-30)
PROC: 02HV33Z Insertion of Infusion Device into Superior Vena Cava, Percutaneous Approach (ICD-10-PCS; 2018-10-02)
PROC: 3E0436Z Introduction of Nutritional Substance into Central Vein, Percutaneous Approach (ICD-10-PCS; 2018-10-02)
PROC: 5A1955Z Respiratory Ventilation, Greater than 96 Consecutive Hours (ICD-10-PCS; principal; 2018-10-04)
PROC: 0BH17EZ Insertion of Endotracheal Airway into Trachea, Via Natural or Artificial Opening (ICD-10-PCS; 2018-10-04)
PROC: 3E0G76Z Introduction of Nutritional Substance into Upper GI, Via Natural or Artificial Opening (ICD-10-PCS; 2018-10-04)
PROC: 3E0G8GC Introduction of Other Therapeutic Substance into Upper GI, Via Natural or Artificial Opening Endoscopic (ICD-10-PCS; 2018-10-10)
PROC: 0DJ08ZZ Inspection of Upper Intestinal Tract, Via Natural or Artificial Opening Endoscopic (ICD-10-PCS; 2018-10-10)
DX: K26.4 Chronic or unspecified duodenal ulcer with hemorrhage (principal); J96.01 Acute respiratory failure with hypoxia; J69.0 Pneumonitis due to inhalation of food and vomit; D62 Acute posthemorrhagic anemia; F10.221 Alcohol dependence with intoxication delirium; D68.9 Coagulation defect, unspecified; E87.0 Hyperosmolality and hypernatremia; E87.4 Mixed disorder of acid-base balance; E87.5 Hyperkalemia; J43.9 Emphysema, unspecified; L89.612 Pressure ulcer of right heel, stage 2; D69.6 Thrombocytopenia, unspecified; K70.40 Alcoholic hepatic failure without coma; K70.30 Alcoholic cirrhosis of liver without ascites; E87.8 Other disorders of electrolyte and fluid balance, not elsewhere classified; E86.0 Dehydration; D63.8 Anemia in other chronic diseases classified elsewhere; E87.6 Hypokalemia; D53.9 Nutritional anemia, unspecified; K44.9 Diaphragmatic hernia without obstruction or gangrene; K21.9 Gastro-esophageal reflux disease without esophagitis; I10 Essential (primary) hypertension; N20.0 Calculus of kidney; K82.9 Disease of gallbladder, unspecified; M19.90 Unspecified osteoarthritis, unspecified site; Y90.0 Blood alcohol level of less than 20 mg/100 ml; Z99.81 Dependence on supplemental oxygen; Z79.899 Other long term (current) drug therapy; Z87.11 Personal history of peptic ulcer disease; Z87.81 Personal history of (healed) traumatic fracture; Z86.19 Personal history of other infectious and parasitic diseases; Z87.891 Personal history of nicotine dependence; Z87.01 Personal history of pneumonia (recurrent); Z83.79 Family history of other diseases of the digestive system; Z83.3 Family history of diabetes mellitus
CPT/HCPCS: 36415; 36573; 36600; 43243; 70450; 71045; 74230; 76705; 80048; 80053; 80306; 80320; 81003; 82140; 82330; 82805; 83605; 83735; 84100; 84132; 84478; 85025; 85027; 85610; 85730; 86850; 86900; 86901; 86920; 87040; 87070; 87086; 87205; 87324; 94002; 94003; 94640; 96361; 96372; 96374; 99284

== ENCOUNTER → 2018-11-08 | Outpatient (CLI) | payer MEDICARE, BC ==
[2018-11-08 11:58] LABS: Anisocytosis Slight; HCT 31.8 % (39.0-53.0); Hypochromasia Marked; MCH 28.5 pg (25.0-35.0); MCHC 29.9 g/dL (31.0-37.0); MCV 95.3 fL (80.0-100.0); Macrocytosis Slight; Platelet Count 125 k/uL (150-450); Poikilocytosis Slight; RBC 3.34 m/uL (4.30-5.90); RDW 18.7 % (11.5-15.5); WBC 3.5 k/uL (3.8-10.6)
[2018-11-08 12:00] LABS: HGB 9.5 gm/dL (13.0-17.5)
--- NOTE | 2018-11-08 12:12 | XR ---
Limited right foot HISTORY: Pressure ulcer right heel 3 views the right foot Bone mineralization is markedly reduced. There is no evident fracture or dislocation. No radiopaque f oreign body. Suspect a small plantar calcaneal spur is present. Soft tissue swelling is noted. There may be ankylosis at the tibiotalar joint. Difficult to exclude tarsal coalition. IMPRESSION: Periostitis is not evident to suggest osteomyelitis. Soft tissue swelling, marked osteopo rosis. Additional findings above.
[2018-11-08 13:43] LABS: Eosinophils # (M) 0.35 k/uL (0-0.7); Lymphocytes # (M) 0.49 k/uL (1.0-4.8); Monocytes # (M) 0.28 k/uL (0-1.0); Neutrophils % (M) 68 %; Nucleated Red Blood Cells 0 /100 WBC (0-0); Total Cells Counted 100
[2018-11-08 19:09] LABS: African American GFR (CKD) 122.3 (60.0-200.0); Albumin/Globulin Ratio 0.45 (1.60-3.17); Anion Gap 9.1 mmol/L (4.00-12.00); Calcium 7.3 mg/dL (8.7-10.3); Carbon Dioxide 21.9 mmol/L (21.6-31.8); Globulin 4.4 g/dL (1.6-3.3); Potassium 3.4 mmol/L (3.5-5.5); Total Bilirubin 2.4 mg/dL (0.3-1.2); Total Protein 6.4 g/dL (6.2-8.2)
== END | disposition home or self-care (01) ==
LOC: LABWHC1 11:03
PROVIDERS: ATTEND Podiatrist
DX: M79.89 Other specified soft tissue disorders (principal); M81.0 Age-related osteoporosis without current pathological fracture
CPT/HCPCS: 36415; 80053; 84134; 85025

== ENCOUNTER → 2018-12-05 | Outpatient (CLI) | payer MEDICARE, BC | END | disposition home or self-care (01) | LOC: RADUSWWP 13:02 | PROVIDERS: ATTEND Podiatrist | DX: L89.613 Pressure ulcer of right heel, stage 3 (principal) | CPT/HCPCS: 93922 ==

== ENCOUNTER 2019-01-17 11:46 | Inpatient (IN) | payer MEDICARE, BC ==
[2019-01-17] MEDS ORDERED: PANTOPRAZOLE 40 MG/10 ML VIAL IVP STA (12:24)
--- NOTE | 2019-01-17 12:29 | ED ---
General Adult HPI - General Chief complaint: GI Bleed Stated complaint: Bleeding ulcer Time Seen by Provider: 01/17/19 12:09 Source: patient, RN notes reviewed Mode of arrival: ambulatory Limitations: no limitations - History of Present Illness Initial comments: Patient is a pleasant 63-year-old male presenting to the emergency department with complaints of dark stool. Patient has notices the past couple of days. Patient does have history of similar episode previously associated with bleeding ulcer a couple of years ago. Patient does feel somewhat more fatigued and generally weak, no isolated weakness. No fever. No abdominal pain - Related Data Home Medications Medication Instructions Recorded Confirmed Multivit-Min/FA/Lycopen/Lutein 1 tab PO DAILY 11/15/16 01/17/19 [Centrum Silver Tablet] Acetaminophen Tab [Tylenol Tab] 1,000 mg PO Q6HR PRN 01/17/19 01/17/19 Allergies Allergy/AdvReac Type Severity Reaction Status Date / Time No Known Allergies Allergy Verified 01/17/19 12:13 Review of Systems ROS Statement: Those systems with pertinent positive or pertinent negative responses have been documented in the HPI. ROS Other: All systems not noted in ROS Statement are negative. Constitutional: Denies: fever Eyes: Denies: eye pain ENT: Denies: ear pain Respiratory: Denies: cough, dyspnea Cardiovascular: Denies: chest pain Endocrine: Reports: fatigue Gastrointestinal: Reports: melena. Denies: abdominal pain Genitourinary: Denies: dysuria Musculoskeletal: Reports: back pain (Chronic), arthralgia (Chronic right hip) Skin: Denies: rash Neurological: Denies: weakness Past Medical History Past Medical History: COPD, GERD/Reflux, Hypertension, Liver Disease, Pneumonia Additional Past Medical History / Comment(s): COPD-02 2-4 liters, hypertension, acid reflux, fracture of the right ankle with an extensive reconstruction surgery, a previous hospitalization for a right subtrochanteric femur fracture post ORIF, tendinitis, History of Any Multi-Drug Resistant Organisms: CRE Date of last positivie culture/infection: 11/27/17 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 CONFIRMED BY [facility] MDRO Source:: Ankle Past Surgical History: Orthopedic Surgery Additional Past Surgical History / Comment(s): right leg surgery 2008, right hip ORIF for subtrochanteric fracture has screws/maurilio, rt ankle tendon repair Past Anesthesia/Blood Transfusion Reactions: No Reported Reaction Past Psychological History: No Psychological Hx Reported Smoking Status: Current some day smoker Past Alcohol Use History: Occasional Past Drug Use History: None Reported - Past Family History Mother Family Medical History: GERD/Reflux Additional Family Medical History / Comment(s): of crohn's disease Father Family Medical History: Diabetes Mellitus General Exam Limitations: no limitations General appearance: alert, in no apparent distress Head exam: Present: normocephalic Eye exam: Present: normal appearance Neck exam: Present: normal inspection Respiratory exam: Present: normal lung sounds bilaterally Cardiovascular Exam: Present: regular rate, normal rhythm GI/Abdominal exam: Present: soft, normal bowel sounds. Absent: distended, tenderness, guarding, rebound, rigid, pulsatile mass Rectal exam: Present: black stool Extremities exam: Present: other (Right foot is bandaged.) Back exam: Present: normal inspection Neurological exam: Present: alert. Absent: motor sensory deficit Psychiatric exam: Present: normal affect, normal mood Skin exam: Present: normal color Course Vital Signs 01/17/19 01/17/19 11:59 12:56 Temperature 98.1 F Pulse Rate 109 H 102 H Respiratory 20 18 Rate Blood Pressure 134/70 148/81 O2 Sat by Pulse 95 92 L Oximetry Medical Decision Making - Medical Decision Making Patient reevaluated and updated. Case was discussed in detail with Dr. Dobbins, who will admit covering for Dr. david. - Lab Data Result diagrams: 01/17/19 12:50 01/17/19 12:50 Lab Results 01/17/19 01/17/19 01/17/19 Range/Units 12:50 12:50 12:50 WBC 3.4 L (3.8-10.6) k/uL RBC 2.74 L (4.30-5.90) m/uL Hgb 8.0 L D (13.0-17.5) gm/dL Hct 26.0 L (39.0-53.0) % MCV 94.9 (80.0-100.0) fL MCH 29.3 (25.0-35.0) pg MCHC 30.9 L (31.0-37.0) g/dL RDW 20.3 H (11.5-15.5) % Plt Count 179 (150-450) k/uL Neutrophils % (Manual) 76 % Lymphocytes % (Manual) 17 % Monocytes % (Manual) 7 % Neutrophils # (Manual) 2.58 (1.3-7.7) k/uL Lymphocytes # (Manual) 0.58 L (1.0-4.8) k/uL Monocytes # (Manual) 0.24 (0-1.0) k/uL Nucleated RBCs 0 (0-0) /100 WBC Manual Slide Review Performed Hypochromasia Marked Anisocytosis Moderate Macrocytosis Slight PT (9.0-12.0) sec INR (<1.2) APTT (22.0-30.0) sec Sodium 138 (137-145) mmol/L Potassium 3.1 L (3.5-5.1) mmol/L Chloride 110 H (98-107) mmol/L Carbon Dioxide 19 L (22-30) mmol/L Anion Gap 9 mmol/L BUN 11 (9-20) mg/dL Creatinine 0.51 L (0.66-1.25) mg/dL Est GFR (CKD-EPI)AfAm >90 (>60 ml/min/1.73 sqM) Est GFR (CKD-EPI)NonAf >90 (>60 ml/min/1.73 sqM) Glucose 111 H (74-99) mg/dL Calcium 7.6 L (8.4-10.2) mg/dL Total Bilirubin 2.7 H (0.2-1.3) mg/dL AST 30 (17-59) U/L ALT 17 L (21-72) U/L Alkaline Phosphatase 105 (38-126) U/L Total Protein 6.9 (6.3-8.2) g/dL Albumin 2.3 L (3.5-5.0) g/dL Stool Occult Blood Positive (Negative) 01/17/19 Range/Units 12:50 WBC (3.8-10.6) k/uL RBC (4.30-5.90) m/uL Hgb (13.0-17.5) gm/dL Hct (39.0-53.0) % MCV (80.0-100.0) fL MCH (25.0-35.0) pg MCHC (31.0-37.0) g/dL RDW (11.5-15.5) % Plt Count (150-450) k/uL Neutrophils % (Manual) % Lymphocytes % (Manual) % Monocytes % (Manual) % Neutrophils # (Manual) (1.3-7.7) k/uL Lymphocytes # (Manual) (1.0-4.8) k/uL Monocytes # (Manual) (0-1.0) k/uL Nucleated RBCs (0-0) /100 WBC Manual Slide Review Hypochromasia Anisocytosis Macrocytosis PT 14.7 H (9.0-12.0) sec INR 1.5 H (<1.2) APTT 30.8 H (22.0-30.0) sec Sodium (137-145) mmol/L Potassium (3.5-5.1) mmol/L Chloride (98-107) mmol/L Carbon Dioxide (22-30) mmol/L Anion Gap mmol/L BUN (9-20) mg/dL Creatinine (0.66-1.25) mg/dL Est GFR (CKD-EPI)AfAm (>60 ml/min/1.73 sqM) Est GFR (CKD-EPI)NonAf (>60 ml/min/1.73 sqM) Glucose (74-99) mg/dL Calcium (8.4-10.2) mg/dL Total Bilirubin (0.2-1.3) mg/dL AST (17-59) U/L ALT (21-72) U/L Alkaline Phosphatase (38-126) U/L Total Protein (6.3-8.2) g/dL Albumin (3.5-5.0) g/dL Stool Occult Blood (Negative) Disposition Clinical Impression: GI hemorrhage Disposition: ADMITTED IP TO THIS HOSP Is patient prescribed a controlled substance at d/c from ED?: No Referrals: Narayan David MD [Primary Care Provider] - 1-2 days Decision Time: 14:35
[2019-01-17 13:20] LABS: Anisocytosis Moderate; Hypochromasia Marked; MCH 29.3 pg (25.0-35.0); MCHC 30.9 g/dL (31.0-37.0); MCV 94.9 fL (80.0-100.0); Macrocytosis Slight; Mean Platelet Volume 7.3; Platelet Count 179 k/uL (150-450); RBC 2.74 m/uL (4.30-5.90); RDW 20.3 % (11.5-15.5); WBC 3.4 k/uL (3.8-10.6)
[2019-01-17 13:23] LABS: ALT 17 U/L (21-72); AST 30 U/L (17-59); African American GFR (CKD) >90 (>60 ml/min/1.73 sqM); Albumin 2.3 g/dL (3.5-5.0); Alkaline Phosphatase 105 U/L (38-126); Anion Gap 9 mmol/L; Blood Urea Nitrogen 11 mg/dL (9-20); Calcium 7.6 mg/dL (8.4-10.2); Carbon Dioxide 19 mmol/L (22-30); Chloride 110 mmol/L (98-107); Glucose 111 mg/dL (74-99); Potassium 3.1 mmol/L (3.5-5.1); Sodium 138 mmol/L (137-145); Total Bilirubin 2.7 mg/dL (0.2-1.3); Total Protein 6.9 g/dL (6.3-8.2)
[2019-01-17 13:25] LABS: INR 1.5 (<1.2); Partial Thromboplastin Time 30.8 sec (22.0-30.0); Prothrombin Time 14.7 sec (9.0-12.0)
[2019-01-17 13:37] LABS: Lymphocytes # (M) 0.58 k/uL (1.0-4.8); Monocytes # (M) 0.24 k/uL (0-1.0); Neutrophils % (M) 76 %; Nucleated Red Blood Cells 0 /100 WBC (0-0); Total Cells Counted 100
[2019-01-17] MEDS ORDERED: POTASSIUM CHLORIDE ER 20 MEQ TAB.ER PO STA (14:33)
[2019-01-17] MEDS ORDERED: POTASSIUM CHLORIDE 2 MEQ/ML 20 ML VIAL IVPB STA (14:33)
[2019-01-17] MEDS ORDERED: POTASSIUM CHLORIDE 10 MEQ in WATER FOR INJECTION 1 100ML.BAG IVPB STA (14:36)
[2019-01-17] MEDS ORDERED: NALOXONE 0.4 MG/ML 1 ML VIAL IV PRN (14:45)
[2019-01-17] MEDS: SODIUM CHLORIDE 0.9% 1,000 ML IV SCH (15:03)
[2019-01-17 15:44] VITALS: BMI 25.7
[2019-01-17] MEDS ORDERED: PNEUMOCOCCAL VACC-PNEUMOVAX 23 25 MCG/0.5 ML VIAL IM ONE (15:48)
[2019-01-17] MEDS ORDERED: ACETAMINOPHEN TAB 500 MG TAB PO PRN (17:11)
[2019-01-17 20:24] LABS: African American GFR (CKD) >90 (>60 ml/min/1.73 sqM); Anion Gap 7 mmol/L; Blood Urea Nitrogen 12 mg/dL (9-20); Calcium 7.3 mg/dL (8.4-10.2); Carbon Dioxide 17 mmol/L (22-30); Chloride 113 mmol/L (98-107); Glucose 139 mg/dL (74-99); Potassium 3.4 mmol/L (3.5-5.1); Sodium 137 mmol/L (137-145)
[2019-01-17] MEDS ORDERED: Potassium Replacement Protocol 1 EACH MISC MISCELLANE PRN (22:24)
--- NOTE | 2019-01-17 22:38 | P.HPIM ---
History of Present Illness H&P Date: 01/17/19 Chief Complaint: Dark-colored stools Patient is a 63-year-old male with a known history of COPD, history of duodenal ulcer status post EGD 2 years ago, GERD, right heel ulcer currently on follow-up with wound care center and history of falls came to ER with complaints of dark- colored stools for the past 4 days. Patient also complaining of generalized weakness and fatigue. No complaints of abdominal pain. No hematemesis. No chest pain. Patient does have exertional short of breath. Otherwise patient denied any [id number] pain medication use. Hemoglobin on admission was 8.0 Patient does have history of urinary ulcer and had EGD done about 2 years ago. Patient was previously transferred to [facility] for possible liver cirrhosis, hyperammonemia. Patient was told he does not have liver cirrhosis at [facility]. INR 1.5., FOBT positive. Potassium 3.1, WBC 3.4 hemoglobin 8.0 Calcium 7.6 Review of Systems Constitutional: Patient denies any fever or chills . Generalized weakness and fatigue. No weight loss. Abdomen: Patient denied nausea vomiting and diarrhea and abdominal pain. Bhakti ent does have dark-colored stools. Cardiovascular: Patient denies any chest pain or short of breath no palpitations. Respiratory: patient denied any cough is from production. No shortness of breath Neurologic: Patient denied any numbness or tingling headache. Musculoskeletal: Patient denies any complaints of joint swelling or deformity. Skin: Negative Psychiatric: Negative Endocrine: No heat or cold intolerance. No recent weight gain. Genitourinary: No dysuria or hematuria. All other 14 point ROS negative except the above Past Medical History Past Medical History: COPD, GERD/Reflux, GI Bleed, Pneumonia Additional Past Medical History / Comment(s): 09/29/18 Upper GI hemorrhage/duodenal ulcer with acute blood loss anemia/multiple transfusions and intubated/vented, possible pneumonia, thrombocytopenia, hyperammonemia with possible chronic liver disease/cirrhosis-pt was transferred to [facility] and pt states they informed him he does not have liver disease/cirrhosis. Other hx; O2 2- 4L/NC prn, L hand tendonitis, lower extremity edema, current R heel ulcer being seen in wound care center, falls, R leg shorter than L leg. 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 Past Anesthesia/Blood Transfusion Reactions: No Reported Reaction Additional Past Anesthesia/Blood Transfusion Reaction / Comment(s): Pt has received blood without reaction. Smoking Status: Light tobacco smoker - Past Family History Mother Family Medical History: GERD/Reflux Additional Family Medical History / Comment(s): of crohn's disease Father Family Medical History: Diabetes Mellitus Medications and Allergies Home Medications Medication Instructions Recorded Confirmed Type Multivit-Min/FA/Lycopen/Lutein 1 tab PO DAILY 11/15/16 01/17/19 History [Centrum Silver Tablet] Acetaminophen Tab [Tylenol Tab] 1,000 mg PO Q6HR PRN 01/17/19 01/17/19 History Allergies Allergy/AdvReac Type Severity Reaction Status Date / Time No Known Allergies Allergy Verified 01/17/19 12:13 Physical Exam Vitals: Vital Signs Temp Pulse Pulse Resp BP BP Pulse Ox 01/17/19 16:40 98.1 F 102 H 16 133/77 92 L 01/17/19 15:50 97.8 F 103 H 18 144/84 94 L 01/17/19 14:30 102 H 18 124/67 93 L 01/17/19 12:56 102 H 18 148/81 92 L 01/17/19 11:59 98.1 F 109 H 20 134/70 95 Intake and Output 01/17/19 01/17/19 01/17/19 06:59 14:59 22:59 Other: Weight 86.183 kg PHYSICAL EXAMINATION: Patient is lying in the bed comfortably, no acute distress, awake alert and oriented.. HEENT: Normocephalic. Neck is supple. Pupils reactive. Nostrils clear. Oral cavity is moist. Ears reveal no drainage. Neck reveals no JVD, carotid bruits, or thyromegaly. CHEST EXAMINATION: Trachea is central. Symmetrical expansion. Bibasilar diminished air entry. Lung del rio clear to auscultation and percussion. CARDIAC: Normal S1, S2 with no gallops. No murmurs ABDOMEN: Soft. Bowel sounds normal. No organomegaly. No abdominal bruits. Extremities: reveal no edema. No clubbing or cyanosis Neurologically awake, alert, oriented x3 with well-coordinated movements. No focal deficits noted Skin: No rash or skin lesions. Psychiatric: Coperative. Nonsuicidal Musculoskeletal: No joint swelling or deformity. Normal range of motion. Right heel ulcer no purulent drainage noted. Results CBC & Chem 7: 01/17/19 12:50 01/17/19 20:05 Labs: Abnormal Lab Results - Last 24 Hours (Table) 01/17/19 01/17/19 01/17/19 Range/Units 12:50 12:50 12:50 WBC 3.4 L (3.8-10.6) k/uL RBC 2.74 L (4.30-5.90) m/uL Hgb 8.0 L D (13.0-17.5) gm/dL Hct 26.0 L (39.0-53.0) % MCHC 30.9 L (31.0-37.0) g/dL RDW 20.3 H (11.5-15.5) % Lymphocytes # (Manual) 0.58 L (1.0-4.8) k/uL PT 14.7 H (9.0-12.0) sec INR 1.5 H (<1.2) APTT 30.8 H (22.0-30.0) sec Potassium 3.1 L (3.5-5.1) mmol/L Chloride 110 H (98-107) mmol/L Carbon Dioxide 19 L (22-30) mmol/L Creatinine 0.51 L (0.66-1.25) mg/dL Glucose 111 H (74-99) mg/dL Calcium 7.6 L (8.4-10.2) mg/dL Total Bilirubin 2.7 H (0.2-1.3) mg/dL ALT 17 L (21-72) U/L Albumin 2.3 L (3.5-5.0) g/dL Thrombosis Risk Factor Assmnt - DVT/VTE Prophylaxis DVT/VTE Prophylaxis: Mechanical Prophylaxis ordered - Choose All That Apply Any of the Below Risk Factors Present?: Yes Each Factor Represents 1 point: Abnormal pulmonary function (COPD), Swollen legs (current) Other Risk Factors: Yes Each Risk Factor Represents 2 Points: Age 61-74 years Other congenital or acquired thrombophilia - If yes, enter type in comment: No Thrombosis Risk Factor Assessment Total Risk Factor Score: 4 Thrombosis Risk Factor Assessment Level: Moderate Risk Assessment and Plan Assessment: Dark-colored stools likely due to upper GI bleed. Acute blood loss anemia and symptomatic anemia History of GI bleed 2 years ago and duodenal ulcer status post EGD Right heel wound ulcers. Currently on follow-up with wound care clinic GERD COPD on O2 by on nausea cannula at home. Coagulopathy elevated INR level I.5 Possible history of chronic liver disease. Hypokalemia Hypocalcemia. DVT prophylaxis with SCDs Plan: Patient will be continued on IV hydration and monitor H&H closely. Replace potassium. Continue with IV PPD. Continue the pain management and wound care. GI was consulted and further recommendations based on the clinical course. Further recommendations based on the clinical course. Prognosis is guarded. Time with Patient: Greater than 30
[2019-01-17] MEDS: POTASSIUM CHLORIDE ER 20 MEQ TAB.ER PO SCH (22:48)
[2019-01-18] MEDS: POTASSIUM CHLORIDE ER 20 MEQ TAB.ER PO SCH (00:43)
[2019-01-18] MEDS: SODIUM CHLORIDE 0.9% 1,000 ML IV SCH ×2 (05:24→17:51)
[2019-01-18 07:51] LABS: ALT 23 U/L (21-72); AST 28 U/L (17-59); African American GFR (CKD) >90 (>60 ml/min/1.73 sqM); Alkaline Phosphatase 88 U/L (38-126); Anion Gap 10 mmol/L; Blood Urea Nitrogen 11 mg/dL (9-20); Calcium 7.6 mg/dL (8.4-10.2); Carbon Dioxide 13 mmol/L (22-30); Chloride 116 mmol/L (98-107); Glucose 103 mg/dL (74-99); Potassium 3.9 mmol/L (3.5-5.1); Sodium 139 mmol/L (137-145); Total Bilirubin 2.9 mg/dL (0.2-1.3); Total Protein 6.4 g/dL (6.3-8.2)
[2019-01-18 08:03] LABS: Anisocytosis Slight; HCT 23.4 % (39.0-53.0); Hypochromasia Marked; MCH 29.6 pg (25.0-35.0); MCHC 30.1 g/dL (31.0-37.0); MCV 98.5 fL (80.0-100.0); Macrocytosis Slight; Mean Platelet Volume 6.6; Platelet Count 184 k/uL (150-450); RBC 2.38 m/uL (4.30-5.90); RDW 19.3 % (11.5-15.5); WBC 4.1 k/uL (3.8-10.6)
[2019-01-18] MEDS ORDERED: LIDOCAINE 1% INJ 10MG/ML (20 ML MDV) ONE (08:54)
[2019-01-18] MEDS ORDERED: PROPOFOL 10 MG/ML 20 ML VIAL IV ONE (08:54)
[2019-01-18] MEDS ORDERED: MULTIVITAMINS, THERA 1 EACH TAB PO SCH (09:00)
[2019-01-18] MEDS ORDERED: PANTOPRAZOLE 40 MG/10 ML VIAL IV SCH (09:00)
[2019-01-18] MEDS ORDERED: EPINEPHrine 10 ML SYRINGE (0.1 MG/ML) MISCELLANE ONE (09:15)
--- NOTE | 2019-01-18 09:28 | P.PCN ---
Date of Procedure: 01/18/19 Procedure(s) Performed: BRIEF HISTORY: Patient is a 63-year-old, pleasant, white male admitted hospital last admission. With black tarry stools of 2 days' duration. The patient was hospitalized 3 months ago with acute upper GI bleed and underwent an upper endoscopy with and was noted to have a 2 cm duodenal bulbar ulcer with active bleeding. The bleeding could not be controlled endoscopy and hence he was transferred to a tertiary center to [facility]. According to the patient is unclear as to what endoscopic intervention was performed. He was supposed to be on Protonix 40 mg daily with unclear if the patient has been taking the medication. He presents to the hospital with black tarry stools and hemoglobin of 7 g/dL. He is hence scheduled for repeat upper endoscopy today.. PROCEDURE PERFORMED: Esophagogastroduodenoscopy with injection epinephrine and Endo Clip placement. PREOPERATIVE DIAGNOSIS: Acute upper GI bleed. IV sedation per anesthesia. PROCEDURE: After informed consent was obtained, the patient was brought into the endoscopy unit. IV sedation was administered by Anesthesia under continuous monitoring. Initially the Olympus GIF-140 video endoscope was inserted into the mouth. Esophagus intubated without any difficulty. It was gradually advanced in to the stomach and duodenum and carefully examined. There was a 2 cm duodenal ulcer along the duodenal sweep with a visible vessel and oozing identified. Initially injected with 10 mL of 1000 epinephrine around the ulcer and in the base of the ulcer with good hemostasis. Following this the visible vessel was clearly identified and this time Endo Clip was placed on the VISIBLE vessel with good hemostasis.. The scope at this time was withdrawn to the stomach, adequately insufflated with air, and upon careful examination, mucosa of the antrum, body, cardia and the fundus appeared normal. The scope was then withdrawn into the esophagus. The GE junction was located at 39 cm from the incisors. The esophagus appeared normal. There were no erosions or ulcerations seen and the patient tolerated the procedure well. IMPRESSION: 1. 1.5-2 cm duodenal ulcer along the duodenal sweep with a visible vessel and oozing status post injection epinephrine and Endo Clip placement with good hemostasis. 2. Small hiatal hernia. RECOMMENDATIONS: The findings of this examination were discussed with the patient . Continue with IV Protonix 40 mg every 12 hours. Obtain surgical consultation as a standby if he has recurrent bleeding. In the meantime we'll transfuse him with 2 units of PRBC today. Keep him on a clear liquid diet. Monitor CBC every 6 hours.
[2019-01-18] MEDS ORDERED: IV FLUID CONTINUATION 200 ML IV ONE (09:30)
[2019-01-18 09:31] LABS: Lymphocytes # (M) 0.53 k/uL (1.0-4.8); Monocytes # (M) 0.49 k/uL (0-1.0); Neutrophils % (M) 75 %; Nucleated Red Blood Cells 0 /100 WBC (0-0); Total Cells Counted 100
--- NOTE | 2019-01-18 09:45 | CONS ---
CONSULTATION DATE OF SERVICE: 01/18/2019 PHYSICIAN: Dr. Trevino. REASON FOR CONSULTATION: Acute GI bleed. HISTORY OF PRESENT ILLNESS: The patient is a 63-year-old white male with history of COPD, chronic wound on the right heel. He was recently at the wound clinic yesterday and apparently was complaining of some black tarry stools. He was sent to the emergency room and subsequently admitted to the hospital for further evaluation. He had black tarry stools for the last two days and a large bloody bowel movement this morning. The patient was admitted to the hospital end of September for the same reason. He had an upper endoscopy done by Dr. Liriano on 10/10/2018 which revealed a large duodenal ulcer with active bleeding. He was subsequently transferred to [facility]. The patient is a very poor historian. Most of the details are not available. In any event, he was advised to be on Prilosec 20 mg daily which he says he has taken for 2 months. He denies any recent NSAID use. He denies any abdominal pain. No nausea, vomiting. At the time of admission to the hospital hemoglobin is 8 and this morning it is down to 7 g/dL. PAST MEDICAL HISTORY: Significant for GERD, duodenal ulcer in October of 2018, history of COPD, chronic non healing right foot ulcer. MEDICATIONS: At home, multivitamins and Tylenol. ALLERGIES: None. PAST SURGICAL HISTORY: Left heel debridement, EGD in October of 2018. FAMILY HISTORY: Mother of Crohn's disease. Father had diabetes mellitus. REVIEW OF SYSTEMS: CARDIOPULMONARY: He denies any chest pain, shortness of breath. GENITOURINARY: No dysuria or hematuria. MUSCULOSKELETAL: Chronic back pain. NEUROLOGY: Unremarkable. PSYCHIATRIC unremarkable. ENT/vision unremarkable. CONSTITUTIONAL: No recent weight loss. No fever, chills, night sweats. ENDOCRINE: Unremarkable. PSYCHIATRIC: Unremarkable. CONSTITUTIONAL: HEMATOLOGY: Severe anemia. PHYSICAL EXAMINATION: He appears comfortable. No apparent distress. Vital signs are stable. Blood pressure is 133/77, pulse rate 102, temperature 98.1. HEENT examination unremarkable. Conjunctivae pink. Sclerae anicteric. Oral cavity no lesions. NECK: No JVD or lymph node enlargement. CHEST: Clear to auscultation. CARDIAC: Heart regular rate and rhythm. ABDOMEN: Soft. Bowel sounds are positive. There was mild tenderness in the epigastric area. EXTREMITIES: No pedal edema. Chronic wound on the right heel. LABS: From yesterday WBC 3.4, hemoglobin 8, platelets 179. INR is 1.5. AST 30, ALT 17, T- bilirubin 2.7, alkaline phosphatase normal. Albumin 2.3. Today hemoglobin is down to 7, platelets 184, WBC 4.1. Occult blood was positive. IMPRESSION: 1. Acute upper gastrointestinal bleed. The patient presents with black tarry stools for the last 2 days duration and this morning had a large bloody bowel movement. Initial hemoglobin was 8, dropped to 7 g/dL. The patient was recently admitted to [facility] in October of 2018 at which time an upper endoscopy done by Dr. Liriano revealed a large bleeding duodenal ulcer. During that hospitalization, the patient was transferred to [facility] but it is unclear as to what therapeutic intervention was performed as the patient is a poor historian. RECOMMENDATIONS: 1. IV Protonix 40 mg twice daily. 2. We will proceed with an upper endoscopy today. I discussed with the patient the risks, benefits and complications and he is agreeable to it. Also consent will be obtained from the legal guardian. We will monitor hemoglobin every 6 hours and transfuse as needed. Thank you for this consultation. MMODL / IJN: [id number] /
[2019-01-18] MEDS ORDERED: THIAMINE 100 MG/ML 2 ML VIAL IM STA (11:02)
[2019-01-18] MEDS ORDERED: LORazepam 2 MG/ML INJ IV PRN ×2 (11:02)
[2019-01-18] MEDS ORDERED: PHYTONADIONE ORAL 5 MG/5 ML ORAL.SYRG PO STA (14:34)
--- NOTE | 2019-01-18 14:38 | P.GSCN ---
History of Present Illness Consult date: 01/18/19 History of present illness: CHIEF COMPLAINT: GI bleed HISTORY OF PRESENT ILLNESS: The patient is a 63 year old male who comes in with history of alcoholism. He also comes in with history of acute gastric intestinal upper GI bleed. He had an EGD done this morning by the [facility] that demonstrated a large broad-based 2 cm ulcer which was clipped earlier. He is resting comfortably today. He's had dark stools since this morning. He initially presented with tachycardia and hypotension. His heart rate has improved. He denies any pain at this time. General surgery is consulted regarding his duodenal ulcer. Per discussion with nursing, additional history is obtained. Patient has known history of liver disease including cirrhosis and had gone to [facility]. No additional documentation since then. Last ultrasound obtained was from early in the year. PAST MEDICAL HISTORY: See list. PAST SURGICAL HISTORY: See list. MEDICATIONS: See list. ALLERGIES: See list. SOCIAL HISTORY: See list. FAMILY HISTORY: See list. REVIEW OF ORGAN SYSTEMS: CONSTITUTIONAL: No fevers or chills. No recent weight loss. EYES: Denies any trouble with vision. No glasses. HEENT: No difficulties with hearing. No nosebleeds. No difficulty swallowing. RESPIRATORY: Denies pneumonia. Denies any troubles with breathing or dyspnea on exertion. Has COPD. CARDIOVASCULAR: Past palpitations. No recent heart attacks. GASTROINTESTINAL: Denies fatty food intolerance. Has change in bowel habits with blood in stools. Has liver disorder. GENITOURINARY: Denies any blood in urine or increased urinary frequency. NEUROLOGICAL: Denies any numbness or tingling along the distal extremities. No seizure disorders or headaches. MUSCULOSKELETAL: Has back pain, stiffness or joint arthritis. SKIN: No current skin cancer. No rash. PSYCHIATRIC: Denies current depression or suicidal thoughts. ENDOCRINE: Denies current thyroid disorders. Denies any blood sugar glucose intolerance. HEME/LYMPHATIC: Denies any lumps and bumps around the neck. No recent deep venous thrombosis. ALLERGY/IMMUNOLOGY: No immunoglobulin therapy. No immune deficiencies. BREAST: Denies current breast lumps, pain or nipple discharge. PHYSICAL EXAM: VITALS: Reviewed CONSTITUTIONAL: Well developed and in no acute distress. EYES: Conjuctivae with sclera icterus. Pupils are equally round and reactive to light. Extraocular movements grossly intact. HEAD, EARS, NOSE, THROAT: Dry buccal mucosa. Head is atraumatic, normocephalic. Hears conversational speech. No nasal drainage. NECK: Supple. No JV distention. No thyroidomegaly. RESPIRATORY: Non-labored respirations and equal bilateral excursions. No gross wheezes. CARDIOVASCULAR: Regular rate and rhythm. Extremities without moderate edema. Palpable 2+ radial pulses. ABDOMEN: Soft. Non-tender. Nondistended. LYMPH: No neck lymphadenopathy. No axillary lymphadenopathy. MUSCULOSKELETAL: Nail and fingers with good capillary refill. SKIN: Warm and well perfused with good skin turgor. NEUROLOGIC: Cranial nerves I through XII grossly intact. Sensation upper and extremities intact. No focal or lateralizing signs. PSYCH: Appropriate affect. Alert and oriented to person, place and time. Displays appropriate insight. CLINCAL LABS: Reviewed. Coags reviewed with INR 1.5. PT and PTT also elevated consistent with chronic liver disease. LFTs are also elevated as well. Hemoglobin was down to 7.0. MEDICAL TEST: Endoscopy reviewed confirms bleeding vessel that was clipped IMAGING: Independently reviewed CT scan showing nodular liver cirrhosis from CT in the last 6 to [address] shows gallstones. RECORDS: previous old records reviewed showed recurrent GI bleed ASSESSMENT: 1. Bleeding duodenal ulcer 2. Alcoholism 3. History of cirrhosis of the liver PLAN: 1. Ideally, avoid oral medications or anything by mouth once bleeding has resolved and CBC is stabilized. 2. Agree with thiamine however switched from oral to IV. 3. He has abnormal liver coagulopathy with tendency for bleeding. Recommend v itamin K which will also help decrease bleeding. 4. May benefit from repeat ultrasound of the liver with baseline history of cirrhosis however unclear to the severity of the disease. 5. At this time, he may have popsicles including ice chips. 6. Overall he is in guarded condition with multiple medical comorbidities including liver cirrhosis, liver coagulopathy, alcoholism and bleeding duodenal ulcer. 7. For any further instability, monitor in ICU and/or surgical intervention. Thank you for this kind consultation. Past Medical History Past Medical History: COPD, GERD/Reflux, GI Bleed, Pneumonia Additional Past Medical History / Comment(s): 09/29/18 Upper GI hemorrhage/duodenal ulcer with acute blood loss anemia/multiple transfusions and intubated/vented, possible pneumonia, thrombocytopenia, hyperammonemia with possible chronic liver disease/cirrhosis-pt was transferred to [facility] and pt states they informed him he does not have liver disease/cirrhosis. Other hx; O2 2- 4L/NC prn, L hand tendonitis, lower extremity edema, current R heel ulcer being seen in wound care center, falls, R leg shorter than L leg. 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 Past Anesthesia/Blood Transfusion Reactions: No Reported Reaction Additional Past Anesthesia/Blood Transfusion Reaction / Comm: Pt has received blood without reaction. Smoking Status: Light tobacco smoker - Past Family History Mother Family Medical History: GERD/Reflux Additional Family Medical History / Comment(s): of crohn's disease Father Family Medical History: Diabetes Mellitus Medications and Allergies Home Medications Medication Instructions Recorded Confirmed Type Multivit-Min/FA/Lycopen/Lutein 1 tab PO DAILY 11/15/16 01/17/19 History [Centrum Silver Tablet] Acetaminophen Tab [Tylenol Tab] 1,000 mg PO Q6HR PRN 01/17/19 01/17/19 History Allergies Allergy/AdvReac Type Severity Reaction Status Date / Time No Known Allergies Allergy Verified 01/17/19 12:13 Surgical - Exam Vital Signs Temp Pulse Resp BP Pulse Ox 98.1 F 109 H 20 134/70 95 01/17/19 11:59 01/17/19 11:59 01/17/19 11:59 01/17/19 11:59 01/17/19 11:59 Results - Labs 01/19/19 17:12 01/18/19 07:07 Abnormal Lab Results - Last 24 Hours (Table) 01/17/19 01/17/19 01/18/19 Range/Units 12:50 20:05 07:07 RBC 2.38 L (4.30-5.90) m/uL Hgb 7.0 L (13.0-17.5) gm/dL Hct 23.4 L (39.0-53.0) % MCHC 30.1 L (31.0-37.0) g/dL RDW 19.3 H (11.5-15.5) % Lymphocytes # (Manual) 0.53 L (1.0-4.8) k/uL Potassium 3.4 L (3.5-5.1) mmol/L Chloride 113 H (98-107) mmol/L Carbon Dioxide 17 L (22-30) mmol/L Creatinine 0.47 L (0.66-1.25) mg/dL Glucose 139 H (74-99) mg/dL Calcium 7.3 L (8.4-10.2) mg/dL Total Bilirubin (0.2-1.3) mg/dL Albumin (3.5-5.0) g/dL Crossmatch See Detail 01/18/19 Range/Units 07:07 RBC (4.30-5.90) m/uL Hgb (13.0-17.5) gm/dL Hct (39.0-53.0) % MCHC (31.0-37.0) g/dL RDW (11.5-15.5) % Lymphocytes # (Manual) (1.0-4.8) k/uL Potassium (3.5-5.1) mmol/L Chloride 116 H (98-107) mmol/L Carbon Dioxide 13 L (22-30) mmol/L Creatinine 0.50 L (0.66-1.25) mg/dL Glucose 103 H (74-99) mg/dL Calcium 7.6 L (8.4-10.2) mg/dL Total Bilirubin 2.9 H (0.2-1.3) mg/dL Albumin 2.0 L (3.5-5.0) g/dL Crossmatch Diabetes panel 01/17/19 01/18/19 01/18/19 Range/Units 20:05 02:02 07:07 Sodium 137 139 (137-145) mmol/L Potassium 3.4 L 3.7 3.9 (3.5-5.1) mmol/L Chloride 113 H 116 H (98-107) mmol/L Carbon Dioxide 17 L 13 L (22-30) mmol/L BUN 12 11 (9-20) mg/dL Creatinine 0.47 L 0.50 L (0.66-1.25) mg/dL Glucose 139 H 103 H (74-99) mg/dL Calcium 7.3 L 7.6 L (8.4-10.2) mg/dL AST 28 (17-59) U/L ALT 23 (21-72) U/L Alkaline Phosphatase 88 (38-126) U/L Total Protein 6.4 (6.3-8.2) g/dL Albumin 2.0 L (3.5-5.0) g/dL Calcium panel 01/17/19 01/18/19 Range/Units 20:05 07:07 Calcium 7.3 L 7.6 L (8.4-10.2) mg/dL Albumin 2.0 L (3.5-5.0) g/dL Pituitary panel 01/17/19 01/18/19 01/18/19 Range/Units 20:05 02:02 07:07 Sodium 137 139 (137-145) mmol/L Potassium 3.4 L 3.7 3.9 (3.5-5.1) mmol/L Chloride 113 H 116 H (98-107) mmol/L Carbon Dioxide 17 L 13 L (22-30) mmol/L BUN 12 11 (9-20) mg/dL Creatinine 0.47 L 0.50 L (0.66-1.25) mg/dL Glucose 139 H 103 H (74-99) mg/dL Calcium 7.3 L 7.6 L (8.4-10.2) mg/dL Adrenal panel 01/17/19 01/18/19 01/18/19 Range/Units 20:05 02:02 07:07 Sodium 137 139 (137-145) mmol/L Potassium 3.4 L 3.7 3.9 (3.5-5.1) mmol/L Chloride 113 H 116 H (98-107) mmol/L Carbon Dioxide 17 L 13 L (22-30) mmol/L BUN 12 11 (9-20) mg/dL Creatinine 0.47 L 0.50 L (0.66-1.25) mg/dL Glucose 139 H 103 H (74-99) mg/dL Calcium 7.3 L 7.6 L (8.4-10.2) mg/dL Total Bilirubin 2.9 H (0.2-1.3) mg/dL AST 28 (17-59) U/L ALT 23 (21-72) U/L Alkaline Phosphatase 88 (38-126) U/L Total Protein 6.4 (6.3-8.2) g/dL Albumin 2.0 L (3.5-5.0) g/dL Assessment and Plan (1) GI hemorrhage Current Visit: Yes Status: Acute Code(s): K92.2 - GASTROINTESTINAL HEMORRH AGE, UNSPECIFIED SNOMED Code(s): 59000465 (2) Acute blood loss anemia Current Visit: No Status: Acute Code(s): D62 - ACUTE POSTHEMORRHAGIC ANEMIA SNOMED Code(s): 955223322 (3) Alcoholic liver disease Current Visit: No Status: Acute Code(s): K70.9 - ALCOHOLIC LIVER DISEASE, UNSPECIFIED SNOMED Code(s): 87620721 (4) Anemia associated with acute blood loss Current Visit: No Status: Acute Code(s): D62 - ACUTE POSTHEMORRHAGIC ANEMIA SNOMED Code(s): 948425350 (5) Duodenal ulcer Current Visit: No Status: Acute Code(s): K26.9 - DUODENAL ULCER, UNSP ACUTE OR CHRONIC, W/O HEMOR OR PERF SNOMED Code(s): 54936907 (6) Elevated bilirubin Current Visit: No Status: Acute Code(s): R17 - UNSPECIFIED JAUNDICE SNOMED Code(s): 07994749 (7) H/O ETOH abuse Current Visit: No Status: Acute Code(s): F10.11 - ALCOHOL ABUSE, IN REMISSION SNOMED Code(s): 361028140 (8) Hepatic encephalopathy Current Visit: No Status: Acute Code(s): K72.90 - HEPATIC FAILURE, UNSPECIFIED WITHOUT COMA SNOMED Code(s): 84361523
[2019-01-18] MEDS: LORazepam 2 MG/ML INJ IV PRN (16:37)
[2019-01-18] MEDS ORDERED: THIAMINE 100 MG TAB PO SCH (17:30)
[2019-01-18 20:55] LABS: Anisocytosis Slight; HCT 28.3 % (39.0-53.0); Hypochromasia Marked; MCH 30.2 pg (25.0-35.0); MCV 94.2 fL (80.0-100.0); Macrocytosis Slight; Mean Platelet Volume 6.4; Platelet Count 187 k/uL (150-450); Poikilocytosis Moderate; RDW 18.5 % (11.5-15.5); WBC 5.5 k/uL (3.8-10.6)
[2019-01-18] MEDS ORDERED: PANTOPRAZOLE 40 MG/10 ML VIAL IVP SCH (21:00)
[2019-01-18 21:15] LABS: HGB 9.1 gm/dL (13.0-17.5)
[2019-01-18] MEDS: PANTOPRAZOLE 40 MG/10 ML VIAL IV SCH (21:42)
[2019-01-19 05:21] LABS: Anisocytosis Slight; HCT 27.3 % (39.0-53.0); HGB 8.9 gm/dL (13.0-17.5); Hypochromasia Marked; MCH 30.5 pg (25.0-35.0); MCHC 32.5 g/dL (31.0-37.0); MCV 93.7 fL (80.0-100.0); Macrocytosis Slight; Mean Platelet Volume 6.4; Platelet Count 189 k/uL (150-450); Poikilocytosis Moderate; RBC 2.91 m/uL (4.30-5.90); RDW 18.8 % (11.5-15.5)
[2019-01-19] MEDS: SODIUM CHLORIDE 0.9% 1,000 ML IV SCH ×2 (09:43→22:06)
[2019-01-19] MEDS: PANTOPRAZOLE 40 MG/10 ML VIAL IV SCH ×2 (09:49→22:05)
[2019-01-19] MEDS: THIAMINE 100 MG/ML 2 ML VIAL IVP SCH (09:49)
[2019-01-19] MEDS ORDERED: SODIUM CHLORIDE 0.9% 500 ML 500 ML IV ONE (11:10)
--- NOTE | 2019-01-19 11:15 | P.PN ---
Subjective Progress Note Date: 01/19/19 CHIEF COMPLAINT: GI bleed HISTORY OF PRESENT ILLNESS: The patient is a 63 year old male who comes in with history of alcoholism. He is post procedure, day 1 from and EGD. He resting comfortably. No reports of abdominal pain. No reports of hematemesis. No reports of large bloody bowel movements. He has been hemodynamically stable. He is currently on alcohol abuse protocol. ROS: No fevers or chills. No chest pain. He had 2 u blood transfusion since admission. PHYSICAL EXAM: VITALS: Reviewed CONSTITUTIONAL: Well developed and in no acute distress. EYES: Conjuctivae with sclera icterus. Pupils are equally round and reactive to light. Extraocular movements grossly intact. HEAD, EARS, NOSE, THROAT: Dry buccal mucosa. Head is atraumatic, normocephalic. Hears conversational speech. No nasal drainage. NECK: Supple. No JV distention. No thyroidomegaly. RESPIRATORY: Non-labored respirations and equal bilateral excursions. No gross wheezes. CARDIOVASCULAR: Regular rate and rhythm. Extremities without moderate edema. Palpable 2+ radial pulses. ABDOMEN: Soft. Non-tender. Nondistended. MUSCULOSKELETAL: Nail and fingers with good capillary refill. SKIN: Warm and well perfused with good skin turgor. NEUROLOGIC: Cranial nerves I through XII grossly intact. Sensation upper and e xtremities intact. No focal or lateralizing signs. PSYCH: Appropriate affect. Alert and oriented to person, place and time. Displays appropriate insight. : Lim catheter with dark urine. CLINCAL LABS: Reviewed. Hgb: Stable over 8.0. ASSESSENT: 1. GI bleed due to duodenal ulcer PLAN: 1. May have ice chips and popsicles otherwise nothing by mouth until tomorrow. 2. May resume oral medications once hemoglobin stable beyond 24-48 hours which is tomorrow. 3. We'll continue to follow Objective - Vital Signs Vital signs: Vital Signs Temp 97.7 F 01/19/19 04:55 Pulse 99 01/19/19 04:55 Resp 20 01/19/19 04:55 BP 138/88 01/19/19 04:55 Pulse Ox 96 01/19/19 04:55 Intake & Output 01/18/19 01/19/19 01/19/19 18:59 06:59 18:59 Intake Total 720 Balance 720 Weight 86.183 kg Intake: IV 100 Blood Product 620 Rc As-1 Unit 310 [id number] Rc As-1 Unit 310 [id number] Other: Voiding Method Diaper Incontinent # Voids 3 2 2 # Bowel Movements 0 0 - Labs CBC & Chem 7: 01/19/19 17:12 01/18/19 07:07 Labs: Abnormal Lab Results - Last 24 Hours (Table) 01/17/19 01/18/19 01/19/19 Range/Units 12:50 20:36 05:02 RBC 3.00 L 2.91 L (4.30-5.90) m/uL Hgb 9.1 L D 8.9 L (13.0-17.5) gm/dL Hct 28.3 L 27.3 L (39.0-53.0) % RDW 18.5 H 18.8 H (11.5-15.5) % Crossmatch See Detail Assessment and Plan (1) Duodenal hemorrhage Current Visit: Yes Status: Acute Code(s): K92.2 - GASTROINTESTINAL HEMORR JOSE, UNSPECIFIED SNOMED Code(s): 02369791 (2) Acute blood loss anemia Current Visit: No Status: Acute Code(s): D62 - ACUTE POSTHEMORRHAGIC ANEMIA SNOMED Code(s): 738979778 (3) Alcoholic liver disease Current Visit: No Status: Acute Code(s): K70.9 - ALCOHOLIC LIVER DISEASE, UNSPECIFIED SNOMED Code(s): 25979117 (4) Anemia associated with acute blood loss Current Visit: No Status: Acute Code(s): D62 - ACUTE POSTHEMORRHAGIC ANEMIA SNOMED Code(s): 054970817
[2019-01-19 11:36] LABS: Anisocytosis Slight; HGB 8.6 gm/dL (13.0-17.5); Hypochromasia Marked; MCH 28.7 pg (25.0-35.0); MCHC 29.8 g/dL (31.0-37.0); MCV 96.3 fL (80.0-100.0); Macrocytosis Slight; Platelet Count 189 k/uL (150-450); Poikilocytosis Moderate; RBC 3.01 m/uL (4.30-5.90); RDW 19.2 % (11.5-15.5); WBC 4.5 k/uL (3.8-10.6)
[2019-01-19] MEDS ORDERED: SODIUM CHLORIDE 0.9% 1,000 ML IV ONE (13:24)
[2019-01-19] MEDS: SODIUM FERRIC GLUCONAT-SUCROSE 125 MG in SODIUM CHLORIDE 0.9% 100 ML IVPB SCH (15:24)
--- NOTE | 2019-01-19 16:35 | PN ---
PROGRESS NOTE DATE OF SERVICE: January 19, 2019. REQUESTING PHYSICIAN: Dr. Trevino The patient is a 53-year-old white male admitted to hospital with acute upper GI bleed. He underwent an upper endoscopy yesterday which revealed a 2 cm duodenal ulcer with active bleeding, status post injection epinephrine with Endoclip placement. The patient is doing better since the endoscopy. He received 2 units of blood transfusion yesterday. Hemoglobin today is up to 8.9 g/dL. He had no further episodes of black stools. Surgery was consulted and Dr. Braswell evaluated the patient. Recommended strict n.p.o. PHYSICAL EXAMINATION: He appears comfortable. No apparent distress. Vital signs stable. Blood pressure 138/88, pulse rate of 99, temperature 97. HEENT examination unremarkable. Conjunctivae pink. Sclerae anicteric. Oral cavity no lesions. Neck no JVD or lymph node enlargement. Chest was clear to auscultation. HEART: Regular rate and rhythm. ABDOMEN: Soft. Bowel sounds are positive. No organomegaly. EXTREMITIES: No pedal edema. SKIN no rashes. NEUROLOGIC: Alert and oriented x3. No focal deficits. LABS: From today, WBC 5, hemoglobin 8.9, platelets 189. Basic metabolic panel is within normal limits. IMPRESSION: Acute gastrointestinal bleed, status post EGD yesterday that showed a persistence of the duodenal ulcer along with duodenal sweep with visible vessel, and bleeding status post injection epinephrine with PEG tube replacement. Hemoglobin stable at 8.9 g/dL status post 2 units of blood transfusion yesterday. RECOMMENDATIONS: 1. Continue IV Protonix 40 mg q.12 hours. 2. Clear liquid diet if okay with surgery. 3. CBC q.12 hours. 4. Transfuse if hemoglobin is less than 7. 5. We will follow with him closely. Thank you for this consultation. MMODL / IJN: [id number] /
[2019-01-19] MEDS: LORazepam 2 MG/ML INJ IV PRN (17:21)
[2019-01-19 17:30] LABS: Anisocytosis Slight; HCT 28.8 % (39.0-53.0); HGB 8.7 gm/dL (13.0-17.5); Hypochromasia Marked; MCH 28.9 pg (25.0-35.0); MCHC 30.2 g/dL (31.0-37.0); MCV 95.5 fL (80.0-100.0); Macrocytosis Slight; Mean Platelet Volume 7.3; Platelet Count 199 k/uL (150-450); Poikilocytosis Moderate; RBC 3.02 m/uL (4.30-5.90); RDW 19.2 % (11.5-15.5); WBC 4.6 k/uL (3.8-10.6)
[2019-01-19 23:17] LABS: Anisocytosis Slight; HCT 27.2 % (39.0-53.0); HGB 8.7 gm/dL (13.0-17.5); Hypochromasia Marked; MCV 93.8 fL (80.0-100.0); Macrocytosis Slight; Mean Platelet Volume 6.4; Platelet Count 196 k/uL (150-450); Poikilocytosis Moderate; RDW 18.7 % (11.5-15.5); WBC 4.8 k/uL (3.8-10.6)
--- NOTE | 2019-01-20 01:13 | P.PN ---
Subjective Progress Note Date: 01/18/19 Principal diagnosis: Acute blood loss anemia secondary to GI bleed Patient is a 63-year-old male with a known history of COPD, history of duodenal ulcer status post EGD 2 years ago, GERD, right heel ulcer currently on follow-up with wound care center and history of falls came to ER with complaints of dark- colored stools for the past 4 days. Patient also complaining of generalized weakness and fatigue. No complaints of abdominal pain. No hematemesis. No chest pain. Patient does have exertional short of breath. Otherwise patient denied any [id number] pain medication use. Hemoglobin on admission was 8.0 Patient does have history of urinary ulcer and had EGD done about 2 years ago. Patient was previously transferred to [facility] for possible liver cir rhosis, hyperammonemia. Patient was told he does not have liver cirrhosis at [facility]. INR 1.5., FOBT positive. Potassium 3.1, WBC 3.4 hemoglobin 8.0 Calcium 7.6 01 18 2019 Patient Is Status Post EGD Showed 1. 1.5-2 cm duodenal ulcer along the duodenal sweep with a visible vessel and oozing status post injection epinephrine and Endo Clip placement with good hemostasis. 2. Small hiatal hernia. Gen. surgery was consulted for further evaluation. Otherwise hemoglobin is 7.0 this morning. 2 units of PRBC was ordered. Started on PPI twice a day. Currently nothing by mouth. Patient is also being monitored for alcohol withdrawal symptoms. Current medications reviewed. Objective - Vital Signs Vital signs: Vital Signs Temp 98.1 F 01/18/19 16:27 Pulse 96 01/18/19 16:27 Resp 16 01/18/19 16:27 BP 129/79 01/18/19 16:27 Pulse Ox 97 01/18/19 12:28 Intake & Output 01/17/19 01/18/19 01/18/19 18:59 06:59 18:59 Intake Total 720 Balance 720 Weight 86.183 kg 86.183 kg Intake: IV 100 Blood Product 620 As-1 Unit 310 [id number] Rc As-1 Unit 310 [id number] Other: Voiding Method Diaper Incontinent # Voids 4 2 # Bowel Movements 1 2 - Exam PHYSICAL EXAMINATION: Patient is lying in the bed comfortably, no acute distress, awake alert and oriented but lethargic and drowsy.. HEENT: Normocephalic. Neck is supple. Pupils reactive. Nostrils clear. Oral cavity is moist. Ears reveal no drainage. Neck reveals no JVD, carotid bruits, or thyromegaly. CHEST EXAMINATION: Trachea is central. Symmetrical expansion. Bibasilar diminished air entry. Lung del rio clear to auscultation and percussion. CARDIAC: Normal S1, S2 with no gallops. No murmurs ABDOMEN: Soft. Bowel sounds normal. No organomegaly. No abdominal bruits. Extremities: reveal no edema. No clubbing or cyanosis Neurologically awake, alert, oriented x3 with well-coordinated movements. No focal deficits noted Skin: No rash or skin lesions. Psychiatric: Coperative. Nonsuicidal Musculoskeletal: No joint swelling or deformity. Normal range of motion. Right heel ulcer no purulent drainage noted. - Labs CBC & Chem 7: 01/19/19 22:57 01/18/19 07:07 Labs: Abnormal Lab Results - Last 24 Hours (Table) 01/17/19 01/17/19 01/18/19 Range/Units 12:50 20:05 07:07 RBC 2.38 L (4.30-5.90) m/uL Hgb 7.0 L (13.0-17.5) gm/dL Hct 23.4 L (39.0-53.0) % MCHC 30.1 L (31.0-37.0) g/dL RDW 19.3 H (11.5-15.5) % Lymphocytes # (Manual) 0.53 L (1.0-4.8) k/uL Potassium 3.4 L (3.5-5.1) mmol/L Chloride 113 H (98-107) mmol/L Carbon Dioxide 17 L (22-30) mmol/L Creatinine 0.47 L (0.66-1.25) mg/dL Glucose 139 H (74-99) mg/dL Calcium 7.3 L (8.4-10.2) mg/dL Total Bilirubin (0.2-1.3) mg/dL Albumin (3.5-5.0) g/dL Crossmatch See Detail 01/18/19 Range/Units 07:07 RBC (4.30-5.90) m/uL Hgb (13.0-17.5) gm/dL Hct (39.0-53.0) % MCHC (31.0-37.0) g/dL RDW (11.5-15.5) % Lymphocytes # (Manual) (1.0-4.8) k/uL Potassium (3.5-5.1) mmol/L Chloride 116 H (98-107) mmol/L Carbon Dioxide 13 L (22-30) mmol/L Creatinine 0.50 L (0.66-1.25) mg/dL Glucose 103 H (74-99) mg/dL Calcium 7.6 L (8.4-10.2) mg/dL Total Bilirubin 2.9 H (0.2-1.3) mg/dL Albumin 2.0 L (3.5-5.0) g/dL Crossmatch Assessment and Plan Assessment: Dark-colored stools likely due to upper GI bleed. Status post EGD-1.5-2 cm duodenal ulcer along the duodenal sweep with a visible vessel and oozing Acute blood loss anemia and symptomatic anemia Acute alcohol withdrawal symptoms. History of GI bleed 2 years ago and duodenal ulcer status post EGD Right heel wound ulcers. Currently on follow-up with wound care clinic GERD COPD on O2 by on nausea cannula at home. Coagulopathy elevated INR level I.5 Possible history of chronic liver disease. Hypokalemia Hypocalcemia. DVT prophylaxis with SCDs Plan: Patient will be continued on IV hydration and monitor H&H closely. Replace potassium. Continue with IV PPD twice a day. Continue the pain management and wound care. GI and general surgery is on board. Further recommendations based on the clinical course. Prognosis is guarded. Time with Patient: Greater than 30
--- NOTE | 2019-01-20 01:15 | P.PN ---
Subjective Progress Note Date: 01/19/19 Principal diagnosis: Acute blood loss anemia secondary to GI bleed Patient is a 63-year-old male with a known history of COPD, history of duodenal ulcer status post EGD 2 years ago, GERD, right heel ulcer currently on follow-up with wound care center and history of falls came to ER with complaints of dark- colored stools for the past 4 days. Patient also complaining of generalized weakness and fatigue. No complaints of abdominal pain. No hematemesis. No chest pain. Patient does have exertional short of breath. Otherwise patient denied any [id number] pain medication use. Hemoglobin on admission was 8.0 Patient does have history of urinary ulcer and had EGD done about 2 years ago. Patient was previously transferred to [facility] for possible liver cir rhosis, hyperammonemia. Patient was told he does not have liver cirrhosis at [facility]. INR 1.5., FOBT positive. Potassium 3.1, WBC 3.4 hemoglobin 8.0 Calcium 7.6 01 18 2019 Patient Is Status Post EGD Showed 1. 1.5-2 cm duodenal ulcer along the duodenal sweep with a visible vessel and oozing status post injection epinephrine and Endo Clip placement with good hemostasis. 2. Small hiatal hernia. Gen. surgery was consulted for further evaluation. Otherwise hemoglobin is 7.0 this morning. 2 units of PRBC was ordered. Started on PPI twice a day. Currently nothing by mouth. Patient is also being monitored for alcohol withdrawal symptoms. 01/19/2019 Patient is currently drowsy and lethargic likely reactive and. Otherwise hemoglobin level improved to 8.7 with 2 units of PRBC. Patient is currently nothing by mouth. General surgery is following. No surgical intervention was recommended. We will continue the supportive therapy. Continue with IV hydration and patient was given fluid bolus due to decreased urine output. Follow-up repeat labs tomorrow. Continue to monitor H&H. Current medications reviewed. Objective - Vital Signs Vital signs: Vital Signs Temp 97.1 F L 01/19/19 12:20 Pulse 94 01/19/19 12:20 Resp 20 01/19/19 12:20 BP 124/69 01/19/19 12:20 Pulse Ox 94 L 01/19/19 12:20 Intake & Output 01/19/19 01/19/19 01/20/19 06:59 18:59 06:59 Output Total 250 Balance -250 Output: Urine 250 Other: Voiding Method Diaper Diaper Incontinent Incontinent # Voids 2 2 # Bowel Movements 0 - Exam PHYSICAL EXAMINATION: Patient is lying in the bed comfortably, no acute distress, awake alert and oriented but lethargic and drowsy.. HEENT: Normocephalic. Neck is supple. Pupils reactive. Nostrils clear. Oral cavity is moist. Ears reveal no drainage. Neck reveals no JVD, carotid bruits, or thyromegaly. CHEST EXAMINATION: Trachea is central. Symmetrical expansion. Bibasilar diminished air entry. Lung del rio clear to auscultation and percussion. CARDIAC: Normal S1, S2 with no gallops. No murmurs ABDOMEN: Soft. Bowel sounds normal. No organomegaly. No abdominal bruits. Extremities: reveal no edema. No clubbing or cyanosis Neurologically awake, alert, oriented x3 with well-coordinated movements. No focal deficits noted Skin: No rash or skin lesions. Psychiatric: Coperative. Nonsuicidal Musculoskeletal: No joint swelling or deformity. Normal range of motion. Right heel ulcer no purulent drainage noted. - Labs CBC & Chem 7: 01/19/19 22:57 01/18/19 07:07 Labs: Abnormal Lab Results - Last 24 Hours (Table) 01/19/19 01/19/19 01/19/19 Range/Units 05:02 11:17 17:12 RBC 2.91 L 3.01 L 3.02 L (4.30-5.90) m/uL Hgb 8.9 L 8.6 L 8.7 L (13.0-17.5) gm/dL Hct 27.3 L 29.0 L 28.8 L (39.0-53.0) % MCHC 29.8 L 30.2 L (31.0-37.0) g/dL RDW 18.8 H 19.2 H 19.2 H (11.5-15.5) % 01/19/19 Range/Units 22:57 RBC 2.90 L (4.30-5.90) m/uL Hgb 8.7 L (13.0-17.5) gm/dL Hct 27.2 L (39.0-53.0) % MCHC (31.0-37.0) g/dL RDW 18.7 H (11.5-15.5) % Assessment and Plan Assessment: Dark-colored stools likely due to upper GI bleed. Status post EGD-1.5-2 cm duodenal ulcer along the duodenal sweep with a visible vessel and oozing Acute blood loss anemia and symptomatic anemia Acute alcohol withdrawal symptoms. History of GI bleed 2 years ago and duodenal ulcer status post EGD Right heel wound ulcers. Currently on follow-up with wound care clinic GERD COPD on O2 by on nausea cannula at home. Coagulopathy elevated INR level I.5 Possible history of chronic liver disease. Hypokalemia Hypocalcemia. DVT prophylaxis with SCDs Plan: Patient will be continued on IV hydration and monitor H&H closely. Replace potassium. Continue with IV PPD twice a day. Continue the pain management and wound care. GI and general surgery is on board. Further recommendations based on the clinical course. Prognosis is guarded. Time with Patient: Greater than 30
[2019-01-20] MEDS: SODIUM CHLORIDE 0.9% 1,000 ML IV SCH ×2 (05:25→17:26)
[2019-01-20 05:36] LABS: Anisocytosis Slight; HCT 28.4 % (39.0-53.0); Hypochromasia Marked; MCH 30.2 pg (25.0-35.0); MCHC 31.8 g/dL (31.0-37.0); Macrocytosis Slight; Mean Platelet Volume 6.3; Platelet Count 201 k/uL (150-450); Poikilocytosis Moderate; RBC 2.99 m/uL (4.30-5.90); RDW 18.7 % (11.5-15.5); WBC 4.3 k/uL (3.8-10.6)
[2019-01-20 05:51] LABS: African American GFR (CKD) >90 (>60 ml/min/1.73 sqM); Anion Gap 8 mmol/L; Blood Urea Nitrogen 6 mg/dL (9-20); Calcium 7.3 mg/dL (8.4-10.2); Carbon Dioxide 16 mmol/L (22-30); Chloride 114 mmol/L (98-107); Glucose 123 mg/dL (74-99); Sodium 138 mmol/L (137-145)
[2019-01-20 06:01] LABS: Potassium 2.6 mmol/L (3.5-5.1)
[2019-01-20] MEDS: POTASSIUM CHLORIDE 10 MEQ in WATER FOR INJECTION 1 100ML.BAG IVPB SCH ×6 (06:26→14:00)
[2019-01-20] MEDS: THIAMINE 100 MG/ML 2 ML VIAL IVP SCH (07:50)
[2019-01-20] MEDS: PANTOPRAZOLE 40 MG/10 ML VIAL IV SCH ×2 (07:50→19:24)
[2019-01-20] MEDS: SODIUM FERRIC GLUCONAT-SUCROSE 125 MG in SODIUM CHLORIDE 0.9% 100 ML IVPB SCH (09:58)
[2019-01-20 10:34] LABS: Iron Saturation 91.24 (15.00-50.00)
[2019-01-20 10:44] LABS: Ferritin 46.5 ng/mL (22.0-322.0)
--- NOTE | 2019-01-20 11:05 | P.CON ---
Consult Note - . Consult date: 01/20/19 Assessment/Plan:: This is a 63-year-old male who is known to the wound care center for a nonhealing ulceration to the right calcaneus stage III. The patient presented to the wound care center with full thickness decubitus ulcer to the right heel the lesion had been present for several months prior to coming to the wound care center. There is no history of osteomyelitis. Patient has been treated prior with Santyl to the site. Patient is noncompliant with offloading or recommended dressing changes. The wound measures approximately 1.6 x 2.1 x 0.2 cm, there is fatty layer exposure, no tunneling or undermining noted. A medium amount of serous drainage noted. Wound bed shows granulation. And a small amount of adherent Slough. Periwound shows callus and scarring. Review Of Systems: Constitutional: No fever, no chills, no night sweats. No weight change. No weakness, fatigue or lethargy. No daytime sleepiness. Integumentary: Reports wounds, no lesions. No rash or pruritus. No unusual bruising. No change in hair or nails. General Appearance: Alert, cooperative, no distress, appears stated age. Integumentary: See HPI, skin turgor decreased Assessment/plan: 1. Pressure ulcer of right heel stage III. Continue offloading, apply collagen silver, saline moistened gauze, dry gauze, rolled gauze to site Sunday. Keep scheduled appointment to the wound care center for Sunday. Continue to increase caloric intake specifically protein. Limit weightbearing, utilize prescribed offloading shoe. 2. Unspecified severe protein calorie malnutrition. Continue to increase caloric intake specifically protein. 3. Patient noncompliance with medical treatment and regime. Thank you for the consultation any questions please contact the wound care center DNP note has been reviewed and discussed with Dr. Shen and the impression and plan of care has been directed as dictated.
--- NOTE | 2019-01-20 11:37 | P.PN ---
Subjective Patient resting in bed without complaint hemoglobin improved to 9. Patient denies any pain at this time. Patient has had consultation with gastroe nterology with EGD and consultation with surgery patient is hyperkalemic on not replacement regime Objective - Vital Signs Vital signs: Vital Signs Temp 97 F L 01/20/19 06:15 Pulse 96 01/20/19 06:15 Resp 16 01/20/19 06:15 BP 139/75 01/20/19 06:15 Pulse Ox 96 01/20/19 06:15 Intake & Output 01/19/19 01/20/19 01/20/19 18:59 06:59 18:59 Output Total 250 1600 Balance -250 -1600 Output: Urine 250 1600 Other: Voiding Method Diaper Incontinent Incontinent # Voids 2 # Bowel Movements 0 - Constitutional General appearance: Present: thin - EENT Eyes: Present: PERRLA Ears: bilateral: normal - Respiratory Respiratory: bilateral: CTA - Cardiovascular Rhythm: regular - Gastrointestinal General gastrointestinal: Present: soft - Integumentary Integumentary Comment(s): Right heel breakdown stage III ulcer - Neurologic Neurologic: Present: CNII-XII intact - Musculoskeletal Musculoskeletal: Present: generalized weakness - Psychiatric Psychiatric: Present: appropriate affect, intact judgment & insight - Labs CBC & Chem 7: 01/20/19 05:22 01/20/19 05:22 Labs: Abnormal Lab Results - Last 24 Hours (Table) 01/19/19 01/19/19 01/19/19 Range/Units 11:17 17:12 17:12 RBC 3.01 L 3.02 L (4.30-5.90) m/uL Hgb 8.6 L 8.7 L (13.0-17.5) gm/dL Hct 29.0 L 28.8 L (39.0-53.0) % MCHC 29.8 L 30.2 L (31.0-37.0) g/dL RDW 19.2 H 19.2 H (11.5-15.5) % Potassium (3.5-5.1) mmol/L Chloride (98-107) mmol/L Carbon Dioxide (22-30) mmol/L BUN (9-20) mg/dL Creatinine (0.66-1.25) mg/dL Glucose (74-99) mg/dL Calcium (8.4-10.2) mg/dL Iron 198 H (65-175) ug/dL TIBC 217 L (228-460) ug/dL Iron Saturation 91.24 H (15.00-50.00) 01/19/19 01/20/19 01/20/19 Range/Units 22:57 05:22 05:22 RBC 2.90 L 2.99 L (4.30-5.90) m/uL Hgb 8.7 L 9.0 L (13.0-17.5) gm/dL Hct 27.2 L 28.4 L (39.0-53.0) % MCHC (31.0-37.0) g/dL RDW 18.7 H 18.7 H (11.5-15.5) % Potassium 2.6 L* (3.5-5.1) mmol/L Chloride 114 H (98-107) mmol/L Carbon Dioxide 16 L (22-30) mmol/L BUN 6 L (9-20) mg/dL Creatinine 0.55 L (0.66-1.25) mg/dL Glucose 123 H (74-99) mg/dL Calcium 7.3 L (8.4-10.2) mg/dL Iron (65-175) ug/dL TIBC (228-460) ug/dL Iron Saturation (15.00-50.00) Assessment and Plan Plan: Assessment GI bleed secondary to duodenal ulcer Acute blood loss anemia posttransfusion Acute alcoholic withdrawal symptoms Right heel ulcer stage III GERD Stable COPD on home O2 Coagulopathy elevated INR level I.5 chronic liver disease hypokalemia Hypocalcemia Plan Continue consultation with gastroenterology and surgery Potassium replacement Iron infusion
--- NOTE | 2019-01-20 13:31 | P.PN ---
<Valeria Paredes A - Last Filed: 01/20/19 13:28> Subjective Progress Note Date: 01/20/19 CHIEF COMPLAINT: GI bleed HISTORY OF PRESENT ILLNESS: Patient examined at the bedside. He denies abdominal pain. Denies nausea or vomiting. Passing flatus. Denies hematemesis. Hemoglobin 9.0. Potassium 2.6. PHYSICAL EXAM: VITAL SIGNS: Currently stable. GENERAL: Well-developed in no acute distress. HEENT: No sclera icterus. Extraocular movements grossly intact. Moist buccal mucosa. Head is atraumatic, normocephalic. Hears conversational speech. No nasal d rainage. NECK: Supple without lymphadenopathy. CHEST: Non-labored respirations and equal bilateral excursions. CARDIOVASCULAR: Regular rate with regular rhythm. Palpable 2+ radial pulses. ABDOMEN: Soft. Nondistended. Nontender MUSCULOSKELETAL: No clubbing, cyanosis or edema. NEUROLOGIC: No focal or lateralizing signs. Cranial nerves II through XII grossly intact. PSYCH: Appropriate affect. Alert and oriented to person, place and time. SKIN: Well perfused. Good skin turgor. ASSESSMENT: 1. GI bleed due to duodenal ulcer 2. Hypokalemia PLAN: 1. Begin clear liquid diet 2. Monitor hemoglobin 3. Replace potassium. Check magnesium level Nurse practitioner note has been reviewed by physician. Signing provider agrees with the documented findings, assessment, and plan of care. Objective - Vital Signs Vital signs: Vital Signs Temp 97 F L 01/20/19 06:15 Pulse 96 01/20/19 06:15 Resp 16 01/20/19 06:15 BP 139/75 01/20/19 06:15 Pulse Ox 96 01/20/19 06:15 Intake & Output 01/19/19 01/20/19 01/20/19 18:59 06:59 18:59 Output Total 250 1600 Balance -250 -1600 Output: Urine 250 1600 Other: Voiding Method Diaper Incontinent Incontinent # Voids 2 # Bowel Movements 0 - Labs CBC & Chem 7: 01/20/19 05:22 01/20/19 05:22 Labs: Abnormal Lab Results - Last 24 Hours (Table) 01/19/19 01/19/19 01/19/19 Range/Units 17:12 17:12 22:57 RBC 3.02 L 2.90 L (4.30-5.90) m/uL Hgb 8.7 L 8.7 L (13.0-17.5) gm/dL Hct 28.8 L 27.2 L (39.0-53.0) % MCHC 30.2 L (31.0-37.0) g/dL RDW 19.2 H 18.7 H (11.5-15.5) % Potassium (3.5-5.1) mmol/L Chloride (98-107) mmol/L Carbon Dioxide (22-30) mmol/L BUN (9-20) mg/dL Creatinine (0.66-1.25) mg/dL Glucose (74-99) mg/dL Calcium (8.4-10.2) mg/dL Iron 198 H (65-175) ug/dL TIBC 217 L (228-460) ug/dL Iron Saturation 91.24 H (15.00-50.00) 01/20/19 01/20/19 Range/Units 05:22 05:22 RBC 2.99 L (4.30-5.90) m/uL Hgb 9.0 L (13.0-17.5) gm/dL Hct 28.4 L (39.0-53.0) % MCHC (31.0-37.0) g/dL RDW 18.7 H (11.5-15.5) % Potassium 2.6 L* (3.5-5.1) mmol/L Chloride 114 H (98-107) mmol/L Carbon Dioxide 16 L (22-30) mmol/L BUN 6 L (9-20) mg/dL Creatinine 0.55 L (0.66-1.25) mg/dL Glucose 123 H (74-99) mg/dL Calcium 7.3 L (8.4-10.2) mg/dL Iron (65-175) ug/dL TIBC (228-460) ug/dL Iron Saturation (15.00-50.00) Assessment and Plan (1) Duodenal hemorrhage Current Visit: Yes Status: Acute Code(s): K92.2 - GASTROINTESTINAL HEMORRHAGE, UNSPECIFIED SNOMED Code(s): 07284360 (2) GI hemorrhage Current Visit: Yes Status: Acute Code(s): K92.2 - GASTROINTESTINAL HEMORRHAGE, UNSPECIFIED SNOMED Code(s): 28741175 (3) Acute blood loss anemia Current Visit: No Status: Acute Code(s): D62 - ACUTE POSTHEMORRHAGIC ANEMIA SNOMED Code(s): 367369145 <Georgiana Braswell N - Last Filed: 01/21/19 08:46> Subjective Hemoglobin has been stable beyond 2 days. He is more lucid at the time of evaluation. Agree with start of diet. Recommend adding carafate to current regimen for duodenal ulcer treatment. Objective - Vital Signs Vital signs: Vital Signs Temp 98.2 F 01/21/19 05:15 Pulse 104 H 01/21/19 05:15 Resp 20 01/21/19 05:15 BP 124/70 01/21/19 05:15 Pulse Ox 93 L 01/21/19 05:15 Intake & Output 01/20/19 01/21/19 01/21/19 18:59 06:59 18:59 Intake Total 200 Balance 200 Intake: Oral 200 Other: Voiding Method Urinal Urinal Urinal # Voids 3 3 # Bowel Movements 1 - Labs CBC & Chem 7: 01/20/19 05:22 01/21/19 07:19 Labs: Abnormal Lab Results - Last 24 Hours (Table) 01/19/19 01/20/19 01/21/19 Range/Units 17:12 16:10 07:19 Potassium 3.2 L 3.1 L (3.5-5.1) mmol/L Chloride 112 H (98-107) mmol/L Carbon Dioxide 18 L (22-30) mmol/L BUN 4 L (9-20) mg/dL Creatinine 0.51 L (0.66-1.25) mg/dL Glucose 107 H (74-99) mg/dL Calcium 7.3 L (8.4-10.2) mg/dL Iron 198 H (65-175) ug/dL TIBC 217 L (228-460) ug/dL Iron Saturation 91.24 H (15.00-50.00) Total Bilirubin 2.3 H (0.2-1.3) mg/dL ALT 15 L (21-72) U/L Albumin 2.0 L (3.5-5.0) g/dL Assessment and Plan (1) Duodenal hemorrhage Current Visit: Yes Status: Acute Code(s): K92.2 - GASTROINTESTINAL HEMORRHAGE, UNSPECIFIED SNOMED Code(s): 43343265 (2) Acute blood loss anemia Current Visit: No Status: Acute Code(s): D62 - ACUTE POSTHEMORRHAGIC ANEMIA SNOMED Code(s): 620286261 (3) Alcoholic liver disease Current Visit: No Status: Acute Code(s): K70.9 - ALCOHOLIC LIVER DISEASE, UNSPECIFIED SNOMED Code(s): 80781767 (4) Anemia associated with acute blood loss Current Visit: No Status: Acute Code(s): D62 - ACUTE POSTHEMORRHAGIC ANEMIA SNOMED Code(s): 959920604
--- NOTE | 2019-01-20 16:03 | PN ---
PROGRESS NOTE DATE OF SERVICE: January 20, 2019 Patient is a 63-year-old pleasant white male admitted to hospital with acute upper GI bleed. He apparently underwent an upper endoscopy 2 days ago and was noted to have a duodenal ulcer with bleeding, status post injection epinephrine and Endoclip placement. Since the endoscopy, he has been doing well. He had no further episodes of bleeding. His last hemoglobin was 8.2 g/dL. PHYSICAL EXAMINATION: He appears comfortable. No apparent distress. VITAL SIGNS: Stable. Blood pressure is 139/75, pulse rate 96, temperature 97. HEENT examination unremarkable. Conjunctivae pink. Sclerae anicteric. Oral cavity no lesions. NECK: No JVD or lymph node enlargement. CHEST: Clear to auscultation. HEART: Regular rate and rhythm. ABDOMEN: Soft. Bowel sounds are positive. No organomegaly. EXTREMITIES: No pedal edema. SKIN no rashes. NEUROLOGIC: Alert and oriented x3. No focal deficits. LABS: From today WBC 4.3, hemoglobin 9.0, platelets normal. BUN 6, creatinine 0.55. IMPRESSION: 1. Acute upper gastrointestinal bleed status post EGD 2 days ago and was noted to have bleeding duodenal ulcer, status post injection epinephrine with Endoclip placement. The patient is stable with no further bleeding. 2. History of nonhealing foot ulcer. 3. History of alcohol abuse. 4. Electrolyte abnormalities. RECOMMENDATIONS: 1. Continue with Protonix 40 mg q.12 hours. 2. We will start him on a clear liquid diet today. 3. CBC every day. 4. If it remains stable, he can be discharged home tomorrow with outpatient followup in 2-3 weeks. MMODL / BILLYN: [id number] /
[2019-01-20] MEDS: POTASSIUM CHLORIDE ER 20 MEQ TAB.ER PO SCH ×2 (17:49→19:24)
[2019-01-21] MEDS: LORazepam 2 MG/ML INJ IV PRN (00:32)
[2019-01-21] MEDS: SODIUM CHLORIDE 0.9% 1,000 ML IV SCH ×2 (01:52→10:00)
[2019-01-21] MEDS: PANTOPRAZOLE 40 MG/10 ML VIAL IV SCH (07:56)
[2019-01-21] MEDS: THIAMINE 100 MG/ML 2 ML VIAL IVP SCH (07:56)
[2019-01-21 08:06] LABS: ALT 15 U/L (21-72); AST 41 U/L (17-59); African American GFR (CKD) >90 (>60 ml/min/1.73 sqM); Alkaline Phosphatase 104 U/L (38-126); Anion Gap 8 mmol/L; Blood Urea Nitrogen 4 mg/dL (9-20); Calcium 7.3 mg/dL (8.4-10.2); Carbon Dioxide 18 mmol/L (22-30); Chloride 112 mmol/L (98-107); Glucose 107 mg/dL (74-99); Potassium 3.1 mmol/L (3.5-5.1); Sodium 138 mmol/L (137-145); Total Bilirubin 2.3 mg/dL (0.2-1.3); Total Protein 6.5 g/dL (6.3-8.2)
[2019-01-21] MEDS: SODIUM FERRIC GLUCONAT-SUCROSE 125 MG in SODIUM CHLORIDE 0.9% 100 ML IVPB SCH (08:12)
[2019-01-21] MEDS: POTASSIUM CHLORIDE ER 20 MEQ TAB.ER PO SCH ×4 (09:58→15:15)
[2019-01-21 10:52] LABS: Anisocytosis Slight; HCT 29.9 % (39.0-53.0); HGB 8.9 gm/dL (13.0-17.5); Hypochromasia Marked; MCH 28.9 pg (25.0-35.0); MCHC 29.8 g/dL (31.0-37.0); Macrocytosis Slight; Mean Platelet Volume 7.8; Platelet Count 202 k/uL (150-450); Poikilocytosis Slight; RBC 3.08 m/uL (4.30-5.90); RDW 19.7 % (11.5-15.5)
--- NOTE | 2019-01-21 11:35 | P.PN ---
Subjective Patient resting in bed requesting discharge home. Continues to be hypokalemic with a potassium of 3.1. We'll continue potassium replacement protocol patient able to retain supper. Hemoglobin stable at 8.9 Objective - Vital Signs Vital signs: Vital Signs Temp 98.2 F 01/21/19 05:15 Pulse 104 H 01/21/19 05:15 Resp 20 01/21/19 05:15 BP 124/70 01/21/19 05:15 Pulse Ox 93 L 01/21/19 05:15 Intake & Output 01/20/19 01/21/19 01/21/19 18:59 06:59 18:59 Intake Total 200 Balance 200 Intake: Oral 200 Other: Voiding Method Urinal Urinal Urinal # Voids 3 3 # Bowel Movements 1 - Constitutional General appearance: Present: mild distress - EENT Eyes: Present: PERRLA Ears: bilateral: normal - Respiratory Respiratory: negative: CTA - Cardiovascular Rhythm: regular - Gastrointestinal General gastrointestinal: Present: soft - Integumentary Integumentary Comment(s): Right heel decubitus - Musculoskeletal Musculoskeletal: Present: generalized weakness - Psychiatric Psychiatric: Present: A&O x's 3, appropriate affect, intact judgment & insight - Labs CBC & Chem 7: 01/21/19 07:19 01/21/19 07:19 Labs: Abnormal Lab Results - Last 24 Hours (Table) 01/20/19 01/21/19 01/21/19 Range/Units 16:10 07:19 07:19 RBC 3.08 L (4.30-5.90) m/uL Hgb 8.9 L (13.0-17.5) gm/dL Hct 29.9 L (39.0-53.0) % MCHC 29.8 L (31.0-37.0) g/dL RDW 19.7 H (11.5-15.5) % Potassium 3.2 L 3.1 L (3.5-5.1) mmol/L Chloride 112 H (98-107) mmol/L Carbon Dioxide 18 L (22-30) mmol/L BUN 4 L (9-20) mg/dL Creatinine 0.51 L (0.66-1.25) mg/dL Glucose 107 H (74-99) mg/dL Calcium 7.3 L (8.4-10.2) mg/dL Total Bilirubin 2.3 H (0.2-1.3) mg/dL ALT 15 L (21-72) U/L Albumin 2.0 L (3.5-5.0) g/dL Assessment and Plan Plan: Assessment Upper GI bleed duodenal ulcer Anemia secondary to acute blood loss posttransfusion History of alcohol abuse Right heel decubitus ulcer stage III GERD COPD O2 at home Coagulopathy INR 1.5 Chronic liver disease Hypokalemia Hypocalcemia Plan Continued potassium replacement awaiting clearance from gastroenterology
[2019-01-21 11:49] LABS: Band Neutrophils % 1 %; Basophils # (M) 0.08 k/uL (0-0.2); Eosinophils # (M) 0.24 k/uL (0-0.7); Lymphocytes # (M) 0.72 k/uL (1.0-4.8); Monocytes # (M) 0.48 k/uL (0-1.0); Neutrophils % (M) 61 %; Nucleated Red Blood Cells 0 /100 WBC (0-0); Total Cells Counted 100
[2019-01-21 11:50] LABS: Polychromasia Present
--- NOTE | 2019-01-21 12:22 | P.PN ---
<Valeria Paredes - Last Filed: 01/21/19 12:19> Subjective Progress Note Date: 01/21/19 CHIEF COMPLAINT: GI bleed HISTORY OF PRESENT ILLNESS: Patient examined at the bedside. He denies abdominal pain. Denies nausea or vomiting. Tolerating diet. Passing flatus and having BMs. Hemoglobin remains stable. 8.9 today. PHYSICAL EXAM: VITAL SIGNS: Currently stable. GENERAL: Well-developed in no acute distress. HEENT: No sclera icterus. Extraocular movements grossly intact. Moist buccal mucosa. Head is atraumatic, normocephalic. Hears conversational speech. No nasal drainage. NECK: Supple without lymphadenopathy. CHEST: Non-labored respirations and equal bilateral excursions. CARDIOVASCULAR: Regular rate with regular rhythm. Palpable 2+ radial pulses. ABDOMEN: Soft. Nondistended. Nontender MUSCULOSKELETAL: No clubbing, cyanosis or edema. NEUROLOGIC: No focal or lateralizing signs. Cranial nerves II through XII grossly intact. PSYCH: Appropriate affect. Alert and oriented to person, place and time. SKIN: Well perfused. Good skin turgor. ASSESSMENT: 1. GI bleed due to duodenal ulcer 2. Hypokalemia PLAN: 1. Continue current diet 2. Monitor hemoglobin 3. Replace electrolytes 4. We will sign off. Please reconsult if needed Nurse practitioner note has been reviewed by physician. Signing provider agrees with the documented findings, assessment, and plan of care. Objective - Vital Signs Vital signs: Vital Signs Temp 98.2 F 01/21/19 05:15 Pulse 104 H 01/21/19 05:15 Resp 20 01/21/19 05:15 BP 124/70 01/21/19 05:15 Pulse Ox 93 L 01/21/19 05:15 Intake & Output 01/20/19 01/21/19 01/21/19 18:59 06:59 18:59 Intake Total 200 Balance 200 Intake: Oral 200 Other: Voiding Method Urinal Urinal Urinal # Voids 3 3 # Bowel Movements 1 - Labs CBC & Chem 7: 01/21/19 07:19 01/21/19 07:19 Labs: Abnormal Lab Results - Last 24 Hours (Table) 01/20/19 01/21/19 01/21/19 Range/Units 16:10 07:19 07:19 RBC 3.08 L (4.30-5.90) m/uL Hgb 8.9 L (13.0-17.5) gm/dL Hct 29.9 L (39.0-53.0) % MCHC 29.8 L (31.0-37.0) g/dL RDW 19.7 H (11.5-15.5) % Lymphocytes # (Manual) 0.72 L (1.0-4.8) k/uL Potassium 3.2 L 3.1 L (3.5-5.1) mmol/L Chloride 112 H (98-107) mmol/L Carbon Dioxide 18 L (22-30) mmol/L BUN 4 L (9-20) mg/dL Creatinine 0.51 L (0.66-1.25) mg/dL Glucose 107 H (74-99) mg/dL Calcium 7.3 L (8.4-10.2) mg/dL Total Bilirubin 2.3 H (0.2-1.3) mg/dL ALT 15 L (21-72) U/L Albumin 2.0 L (3.5-5.0) g/dL Assessment and Plan (1) Duodenal hemorrhage Status: Acute Code(s): K92.2 - GASTROINTESTINAL HEMORRHAGE, UNSPECIFIED SNOMED Code(s): 68407935 (2) GI hemorrhage Status: Acute Code(s): K92.2 - GASTROINTESTINAL HEMORRHAGE, UNSPECIFIED SNOMED Code(s): 77298000 (3) Acute blood loss anemia Status: Acute Code(s): D62 - ACUTE POSTHEMORRHAGIC ANEMIA SNOMED Code(s): 677304978 <Georgiana Braswell N - Last Filed: 01/21/19 22:44> Objective - Vital Signs Vital signs: Vital Signs Temp 97.8 F 01/21/19 15:00 Pulse 113 H 01/21/19 15:00 Resp 16 01/21/19 15:00 BP 137/83 01/21/19 15:00 Pulse Ox 90 L 01/21/19 15:00 Intake & Output 01/21/19 01/21/19 01/22/19 06:59 18:59 06:59 Intake Total 200 Balance 200 Weight 86.183 kg Intake: Oral 200 Other: Voiding Method Urinal Urinal # Voids 3 3 # Bowel Movements 1 - Labs CBC & Chem 7: 01/21/19 07:19 01/21/19 12:47 Labs: Abnormal Lab Results - Last 24 Hours (Table) 01/21/19 01/21/19 01/21/19 Range/Units 07:19 07:19 12:47 RBC 3.08 L (4.30-5.90) m/uL Hgb 8.9 L (13.0-17.5) gm/dL Hct 29.9 L (39.0-53.0) % MCHC 29.8 L (31.0-37.0) g/dL RDW 19.7 H (11.5-15.5) % Lymphocytes # (Manual) 0.72 L (1.0-4.8) k/uL Potassium 3.1 L 3.2 L (3.5-5.1) mmol/L Chloride 112 H (98-107) mmol/L Carbon Dioxide 18 L (22-30) mmol/L BUN 4 L (9-20) mg/dL Creatinine 0.51 L (0.66-1.25) mg/dL Glucose 107 H (74-99) mg/dL Calcium 7.3 L (8.4-10.2) mg/dL Total Bilirubin 2.3 H (0.2-1.3) mg/dL ALT 15 L (21-72) U/L Albumin 2.0 L (3.5-5.0) g/dL Assessment and Plan (1) Duodenal hemorrhage Status: Acute Code(s): K92.2 - GASTROINTESTINAL HEMORRHAGE, UNSPECIFIED SNOMED Code(s): 26460215 (2) Acute blood loss anemia Status: Acute Code(s): D62 - ACUTE POSTHEMORRHAGIC ANEMIA SNOMED Code(s): 676840250 (3) Alcoholic liver disease Status: Acute Code(s): K70.9 - ALCOHOLIC LIVER DISEASE, UNSPECIFIED SNOMED Code(s): 08217367 (4) Anemia associated with acute blood loss Status: Acute Code(s): D62 - ACUTE POSTHEMORRHAGIC ANEMIA SNOMED Code(s): 156027495
[2019-01-21] MEDS ORDERED: SUCRALFATE 1 GM TAB PO SCH (12:30)
[2019-01-21 15:17] VITALS: BP 137/83; PULSE 113; RESP 16; TEMP 97.8
[2019-01-21] MEDS ORDERED: PANTOPRAZOLE 40 MG TABLET PO SCH (21:00)
--- NOTE | 2019-01-22 11:30 | P.DS ---
Providers Date of admission: 01/17/19 14:45 Expected date of discharge: 01/21/19 Attending physician: Narayan Trevino Consults: 01/17/19 14:45 Consult Physician Urgent Consulting Provider: Danna Mckinney Consult Reason/Comments: gi hemorrhage Do you want consulting provider notified?: Yes 01/18/19 09:37 Consult Physician Routine Consulting Provider: Georgiana Braswell Consult Reason/Comments: gi bleed, duodenal ulcer Do you want consulting provider notified?: Yes Primary care physician: Narayan Trevino Hospital Course: 63-year-old male was admitted through the emergency room found to have on upper GI bleed diagnosed with EGD duodenal ulcer. Patient was stabilized. Patient had iron infusions. Patient had hyperkalemia was corrected. Patient requesting discharge home Assessment Upper GI bleed post EGD with duodenal ulcer Acute blood loss and anemia symptomatic posttransfusion Alcohol withdrawal Right heel decubitus ulcer stage III GERD Chronic COPD stable on O2 at home Coagulopathy elevated INR 1.5 Chronic liver disease Hypokalemia Hypocalcemia Plan Follow-up with gastroenterology Follow up with family physician Dr. Narayan Trevino Patient Condition at Discharge: Good Plan - Discharge Summary Discharge Rx Participant: No New Discharge Prescriptions: New Pantoprazole [Protonix] 40 mg PO BID #60 tablet. Continue Multivit-Min/FA/Lycopen/Lutein [Centrum Silver Tablet] 1 tab PO DAILY Acetaminophen Tab [Tylenol] 1,000 mg PO Q6HR PRN PRN Reason: Pain Discharge Medication List Multivit-Min/FA/Lycopen/Lutein [Centrum Silver Tablet] 1 tab PO DAILY 11/15/16 [History] Acetaminophen Tab [Tylenol] 1,000 mg PO Q6HR PRN 01/17/19 [History] Pantoprazole [Protonix] 40 mg PO BID #60 tablet. 01/21/19 [Rx] Follow up Appointment(s)/Referral(s): Narayan Trevino MD [Primary Care Provider] - 01/23/19 1:10 pm Danna Mckinney MD [STAFF PHYSICIAN] - 02/06/19 2:40 pm [facility] Nurse, [NON-STAFF] - Patient Instructions/Handouts: Wound Infection (DC), Upper Endoscopic Gastrointestinal Ultrasonography (DC) Activity/Diet/Wound Care/Special Instructions: boot to right foot low fat diet as tolerated potassium replaced 01/21/19 EGD completed 01/18/19 with Epinephrine and Endo Clips RIGHT HEEL-F collagen AG, Last changed 01/21/19 [facility] Discharge Disposition: HOME WITH HOME HEALTH SERVICES
== END 2019-01-21 16:16 | disposition home health service (06) | DRG 377 ==
LOC: EC 11:46 → 4MS4W 14:45
PROVIDERS: ADMIT Family Medicine; ATTEND Family Medicine
PROC: 30233N1 Transfusion of Nonautologous Red Blood Cells into Peripheral Vein, Percutaneous Approach (ICD-10-PCS; 2019-01-18)
PROC: 3E0G8GC Introduction of Other Therapeutic Substance into Upper GI, Via Natural or Artificial Opening Endoscopic (ICD-10-PCS; principal; 2019-01-18 09:00)
PROC: 0W3P8ZZ Control Bleeding in Gastrointestinal Tract, Via Natural or Artificial Opening Endoscopic (ICD-10-PCS; 2019-01-18 09:00)
DX: K26.4 Chronic or unspecified duodenal ulcer with hemorrhage (principal); L89.613 Pressure ulcer of right heel, stage 3; E43 Unspecified severe protein-calorie malnutrition; F10.239 Alcohol dependence with withdrawal, unspecified; D62 Acute posthemorrhagic anemia; D68.9 Coagulation defect, unspecified; K44.9 Diaphragmatic hernia without obstruction or gangrene; K70.9 Alcoholic liver disease, unspecified; E83.51 Hypocalcemia; E87.6 Hypokalemia; F17.210 Nicotine dependence, cigarettes, uncomplicated; I10 Essential (primary) hypertension; J44.9 Chronic obstructive pulmonary disease, unspecified; K21.9 Gastro-esophageal reflux disease without esophagitis; K74.60 Unspecified cirrhosis of liver; Z79.899 Other long term (current) drug therapy; Z83.3 Family history of diabetes mellitus; Z91.19 Patient's noncompliance with other medical treatment and regimen; Z91.81 History of falling; Z99.81 Dependence on supplemental oxygen; Z83.79 Family history of other diseases of the digestive system; M21.762 Unequal limb length (acquired), left tibia; Z87.01 Personal history of pneumonia (recurrent); Z87.11 Personal history of peptic ulcer disease
CPT/HCPCS: 36415; 43243; 43255; 80048; 80053; 82272; 82306; 82728; 83540; 83550; 83735; 84132; 85025; 85027; 85610; 85730; 86850; 86900; 86901; 86920; 90732; 96365; 96375; 99284

== ENCOUNTER 2019-02-14 14:46 | Inpatient (IN) | payer MEDICARE, BC ==
--- NOTE | 2019-02-14 16:09 | ED ---
Fall HPI - General Source: patient, EMS Mode of arrival: EMS <Joan Wilde - Last Filed: 02/15/19 12:43> <Alejandra Vinson - Last Filed: 02/18/19 01:47> - General Chief Complaint: Fall Stated Complaint: Foot Infection Time Seen by Provider: 02/14/19 15:03 - History of Present Illness Initial Comments: Patient is a 63-year-old male, with past medical history of COPD, GI bleed, right ankle surgery, and right foot ulcers, presenting to the emergency department after falling out of his wheelchair last night. Patient's home health nurse found him this morning and called the ambulance. Patient is also complaining of right foot pain secondary to a worsening infection. Patient has been seeing the wound care center for his foot infection. Patient states he did not hit his head falling out of his wheelchair last night and is currently has no pain from that fall. Patient currently lives alone. Patient states he has had fever in the past week of 101. Patient states he feels "okay today." Patient is answering questions appropriately. Patient has no other complaints at this time. Patient denies fever today, chills, nausea, vomiting, belly pain, headache, chest pain, shortness of breath. Upon arrival to the ER, patient is slightly tachycardia at 115, patient is 98% on 2 L, BP 123/68, patient 18, normal temp. (Joan Wilde) - Related Data Home Medications Medication Instructions Recorded Confirmed Acetaminophen Tab [Tylenol] 1,000 mg PO Q6HR PRN 01/17/19 02/14/19 Allergies Allergy/AdvReac Type Severity Reaction Status Date / Time No Known Allergies Allergy Verified 02/14/19 17:43 Review of Systems ROS Other: All systems not noted in ROS Statement are negative. <Joan Wilde - Last Filed: 02/15/19 12:43> ROS Other: All systems not noted in ROS Statement are negative. <Alejandra Vinson - Last Filed: 02/18/19 01:47> ROS Statement: Those systems with pertinent positive or pertinent negative responses have been documented in the HPI. Past Medical History Past Medical History: COPD, GERD/Reflux, GI Bleed, Pneumonia Additional Past Medical History / Comment(s): 09/29/18 Upper GI hemorrhage/duodenal ulcer with acute blood loss anemia/multiple transfusions and intubated/vented, possible pneumonia, thrombocytopenia, hyperammonemia with possible chronic liver disease/cirrhosis-pt was transferred to [facility] and pt states they informed him he does not have liver disease/cirrhosis. Other hx; O2 2- 4L/NC prn, L hand tendonitis, lower extremity edema, current R heel ulcer being seen in wound care center, falls, R leg shorter than L leg. 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 MDRO Source:: Ankle Past Surgical History: Orthopedic Surgery Additional Past Surgical History / Comment(s): R hip ORIF with screws/rods, R ankle tendon surgery, multiple endoscopies-EGDs/colonoscopies, L heel debridement. Past Anesthesia/Blood Transfusion Reactions: No Reported Reaction Additional Past Anesthesia/Blood Transfusion Reaction / Comment(s): Pt has received blood without reaction. Past Psychological History: No Psychological Hx Reported Smoking Status: Light tobacco smoker - Past Family History Mother Family Medical History: GERD/Reflux Additional Family Medical History / Comment(s): of crohn's disease Father Family Medical History: Diabetes Mellitus <ChaniSashaJoan L - Last Filed: 02/15/19 12:43> General Exam Limitations: physical limitation <Joan Wilde Zach - Last Filed: 02/15/19 12:43> - General Exam Comments Initial Comments: GENERAL: Well-appearing, well-nourished and in no acute distress. HEAD: Atraumatic, normocephalic. EYES: Pupils equal round and reactive to light, extraocular movements intact, sclera anicteric, conjunctiva are normal. ENT: TMs normal, nares patent, oropharynx clear without exudates. Moist mucous membranes. NECK: Normal range of motion, supple without lymphadenopathy or JVD. LUNGS: Breath sounds clear to auscultation bilaterally and equal. No wheezes rales or rhonchi. HEART: Regular rate and rhythm without murmurs, rubs or gallops. ABDOMEN: Soft, nontender, normoactive bowel sounds. No guarding, no rebound. No masses appreciated. EXTREMITIES: Patient has bilateral lower leg edema, erythema of the right lower leg along with 2 ulcers on the right ankle, one on the lateral and one on the medial aspect. Compartments are soft and compressible. NEUROLOGICAL: Cranial nerves II through XII grossly intact. Normal speech. PSYCH: Normal mood, normal affect. SKIN: Warm, Dry, normal turgor,. Patient has bruising along the lateral aspect of the left upper leg extending down into the lower leg. There is no pain with palpation along this bruise.. (Joan Wilde) Course Vital Signs 02/14/19 02/14/19 02/14/19 14:48 17:00 18:51 Temperature 96.8 F L Pulse Rate 115 H 110 H 111 H Respiratory 18 18 18 Rate Blood Pressure 123/68 133/82 130/65 O2 Sat by Pulse 98 99 98 Oximetry 02/14/19 21:25 Temperature 99.0 F Pulse Rate 108 H Respiratory 18 Rate Blood Pressure 141/77 O2 Sat by Pulse 94 L Oximetry Medical Decision Making - Lab Data Result diagrams: 02/14/19 15:57 02/15/19 08:38 <Joan Wilde - Last Filed: 02/15/19 12:43> - Lab Data Result diagrams: 02/17/19 07:54 02/15/19 20:22 <Alejandra Vinson - Last Filed: 02/18/19 01:47> - Medical Decision Making Patient is a 63-year-old male presenting via EMS after falling out of his wheelchair yesterday and was not found until this morning. Patient is also complaining of a worsening right foot infection. Patient is currently seeing wound care for this infection but states it is getting worse over the past week. Patient has been having intermittent fevers at home. Upon arrival to the ER today, vital signs are stable. Lab work today reveals a hemoglobin of 10.2 and slight increase in coags which are also normal for this patient. Patient's lactic acid was 3.7. Bilirubin is 4.3, AST is 152. Alk phos was 191. CK was 2438. Patient was given a liter of fluids and started on antibiotics. Fluids will be continued and patient will be admitted for rhabdo as well as a worsening right foot with cellulitis. Patient accepted by Dr. Wong. Wound care will be consulted. Case discussed with Dr. Vinson who did evaluate the patient and agrees with this plan of care. (Joan Wilde) I was available for consultation in the emergency department. The history and physical exam were done by the midlevel provider. I was consulted for this patients care. I reviewed the case with the midlevel provider and based on their presentation of the patient, I agree with the assessment, medical decision making and plan of care as documented. I evaluated the patient myself. Chart was dictated using [employer] dictation software. Attempts were made to correct any dictation errors however some typographical errors may persist. (Alejandra Vinson) - Lab Data Lab Results 02/14/19 02/14/19 02/14/19 Range/Units 15:57 15:57 15:57 WBC 6.4 (3.8-10.6) k/uL RBC 3.40 L (4.30-5.90) m/uL Hgb 10.2 L (13.0-17.5) gm/dL Hct 33.4 L (39.0-53.0) % MCV 98.4 (80.0-100.0) fL MCH 30.0 (25.0-35.0) pg MCHC 30.5 L (31.0-37.0) g/dL RDW 20.2 H (11.5-15.5) % Plt Count 200 (150-450) k/uL Neutrophils % (Manual) 81 % Band Neutrophils % 1 % Lymphocytes % (Manual) 10 % Monocytes % (Manual) 6 % Eosinophils % (Manual) 2 % Neutrophils # (Manual) 5.20 (1.3-7.7) k/uL Lymphocytes # (Manual) 0.64 L (1.0-4.8) k/uL Monocytes # (Manual) 0.38 (0-1.0) k/uL Eosinophils # (Manual) 0.13 (0-0.7) k/uL Nucleated RBCs 0 (0-0) /100 WBC Manual Slide Review Performed Polychromasia Present Hypochromasia Marked Poikilocytosis Slight Poikilocytosis (manual Present Anisocytosis Moderate Macrocytosis Moderate PT (9.0-12.0) sec INR (<1.2) APTT (22.0-30.0) sec Sodium 139 (137-145) mmol/L Potassium 3.8 (3.5-5.1) mmol/L Chloride 109 H (98-107) mmol/L Carbon Dioxide 20 L (22-30) mmol/L Anion Gap 10 mmol/L BUN 15 (9-20) mg/dL Creatinine 0.50 L (0.66-1.25) mg/dL Est GFR (CKD-EPI)AfAm >90 (>60 ml/min/1.73 sqM) Est GFR (CKD-EPI)NonAf >90 (>60 ml/min/1.73 sqM) Glucose 98 (74-99) mg/dL Lactic Ac Sepsis Rflx Plasma Lactic Acid Milton 3.7 H* (0.7-2.0) mmol/L Calcium 8.1 L (8.4-10.2) mg/dL Total Bilirubin 4.3 H (0.2-1.3) mg/dL AST 152 H (17-59) U/L ALT 48 (21-72) U/L Alkaline Phosphatase 191 H (38-126) U/L Creatine Kinase 2438 H* (55-170) U/L Total Protein 7.8 (6.3-8.2) g/dL Albumin 2.3 L (3.5-5.0) g/dL 02/14/19 02/14/19 02/14/19 Range/Units 15:57 16:24 19:42 WBC (3.8-10.6) k/uL RBC (4.30-5.90) m/uL Hgb (13.0-17.5) gm/dL Hct (39.0-53.0) % MCV (80.0-100.0) fL MCH (25.0-35.0) pg MCHC (31.0-37.0) g/dL RDW (11.5-15.5) % Plt Count (150-450) k/uL Neutrophils % (Manual) % Band Neutrophils % % Lymphocytes % (Manual) % Monocytes % (Manual) % Eosinophils % (Manual) % Neutrophils # (Manual) (1.3-7.7) k/uL Lymphocytes # (Manual) (1.0-4.8) k/uL Monocytes # (Manual) (0-1.0) k/uL Eosinophils # (Manual) (0-0.7) k/uL Nucleated RBCs (0-0) /100 WBC Manual Slide Review Polychromasia Hypochromasia Poikilocytosis Poikilocytosis (manual Anisocytosis Macrocytosis PT 14.4 H (9.0-12.0) sec INR 1.4 H (<1.2) APTT 25.0 (22.0-30.0) sec Sodium (137-145) mmol/L Potassium (3.5-5.1) mmol/L Chloride (98-107) mmol/L Carbon Dioxide (22-30) mmol/L Anion Gap mmol/L BUN (9-20) mg/dL Creatinine (0.66-1.25) mg/dL Est GFR (CKD-EPI)AfAm (>60 ml/min/1.73 sqM) Est GFR (CKD-EPI)NonAf (>60 ml/min/1.73 sqM) Glucose (74-99) mg/dL Lactic Ac Sepsis Rflx Y Plasma Lactic Acid Mliton 2.2 H* (0.7-2.0) mmol/L Calcium (8.4-10.2) mg/dL Total Bilirubin (0.2-1.3) mg/dL AST (17-59) U/L ALT (21-72) U/L Alkaline Phosphatase (38-126) U/L Creatine Kinase (55-170) U/L Total Protein (6.3-8.2) g/dL Albumin (3.5-5.0) g/dL 02/14/19 Range/Units 20:10 WBC (3.8-10.6) k/uL RBC (4.30-5.90) m/uL Hgb (13.0-17.5) gm/dL Hct (39.0-53.0) % MCV (80.0-100.0) fL MCH (25.0-35.0) pg MCHC (31.0-37.0) g/dL RDW (11.5-15.5) % Plt Count (150-450) k/uL Neutrophils % (Manual) % Band Neutrophils % % Lymphocytes % (Manual) % Monocytes % (Manual) % Eosinophils % (Manual) % Neutrophils # (Manual) (1.3-7.7) k/uL Lymphocytes # (Manual) (1.0-4.8) k/uL Monocytes # (Manual) (0-1.0) k/uL Eosinophils # (Manual) (0-0.7) k/uL Nucleated RBCs (0-0) /100 WBC Manual Slide Review Polychromasia Hypochromasia Poikilocytosis Poikilocytosis (manual Anisocytosis Macrocytosis PT (9.0-12.0) sec INR (<1.2) APTT (22.0-30.0) sec Sodium (137-145) mmol/L Potassium (3.5-5.1) mmol/L Chloride (98-107) mmol/L Carbon Dioxide (22-30) mmol/L Anion Gap mmol/L BUN (9-20) mg/dL Creatinine (0.66-1.25) mg/dL Est GFR (CKD-EPI)AfAm (>60 ml/min/1.73 sqM) Est GFR (CKD-EPI)NonAf (>60 ml/min/1.73 sqM) Glucose (74-99) mg/dL Lactic Ac Sepsis Rflx Y Plasma Lactic Acid Milton (0.7-2.0) mmol/L Calcium (8.4-10.2) mg/dL Total Bilirubin (0.2-1.3) mg/dL AST (17-59) U/L ALT (21-72) U/L Alkaline Phosphatase (38-126) U/L Creatine Kinase (55-170) U/L Total Protein (6.3-8.2) g/dL Albumin (3.5-5.0) g/dL Disposition Is patient prescribed a controlled substance at d/c from ED?: No Decision Date: 02/14/19 Decision Time: 19:56 <Joan Wilde - Last Filed: 02/15/19 12:43> <Alejandra Vinson - Last Filed: 02/18/19 01:47> Clinical Impression: Cellulitis of right lower leg, Rhabdomyolysis Disposition: ADMITTED IP TO THIS HOSP Condition: Stable
[2019-02-14 16:17] LABS: Anisocytosis Moderate; HCT 33.4 % (39.0-53.0); HGB 10.2 gm/dL (13.0-17.5); Hypochromasia Marked; MCHC 30.5 g/dL (31.0-37.0); MCV 98.4 fL (80.0-100.0); Macrocytosis Moderate; Mean Platelet Volume 7.3; Platelet Count 200 k/uL (150-450); Poikilocytosis Slight; RDW 20.2 % (11.5-15.5); WBC 6.4 k/uL (3.8-10.6)
[2019-02-14 16:24] LABS: ALT 48 U/L (21-72); AST 152 U/L (17-59); African American GFR (CKD) >90 (>60 ml/min/1.73 sqM); Albumin 2.3 g/dL (3.5-5.0); Alkaline Phosphatase 191 U/L (38-126); Anion Gap 10 mmol/L; Blood Urea Nitrogen 15 mg/dL (9-20); Calcium 8.1 mg/dL (8.4-10.2); Carbon Dioxide 20 mmol/L (22-30); Chloride 109 mmol/L (98-107); Glucose 98 mg/dL (74-99); Potassium 3.8 mmol/L (3.5-5.1); Sodium 139 mmol/L (137-145); Total Bilirubin 4.3 mg/dL (0.2-1.3); Total Protein 7.8 g/dL (6.3-8.2)
[2019-02-14] MEDS ORDERED: SODIUM CHLORIDE 0.9% 1,000 ML IV STA (16:29)
[2019-02-14 16:33] LABS: Creatine Kinase 2438 U/L (55-170)
--- NOTE | 2019-02-14 16:43 | XR ---
EXAMINATION TYPE: XR ankle complete RT DATE OF EXAM: 02/14/2019 COMPARISON: NONE HISTORY: 63-year-old male with infection, pain and redness along the lateral aspect TECHNIQUE: 3 views FINDINGS: Severe osteopenia. Either post traumatic, postsurgical, or post inflammatory tibiotalar and hindfoot arthrodesis. Generalized soft tissue swelling, to a greater extent along the lateral aspect. No discr ete lytic destruction is identified though there is limitation in assessment due to the degree of ost eopenia. Possible subtle cortical step-off along the inferior margin of the proximal fifth metacarpal . Only seen on the lateral view. IMPRESSION: 1. Assessment limited due to the presence of severe osteopenia. 2. Generalized soft tissue swelling. No obvious lytic destruction to suggest osteomyelitis at this ti me. 3. Possible subtle nondisplaced transverse fracture at the fifth metatarsal base. This lucency is see n only on the lateral view. 4. Prior hindfoot and tibiotalar joint ankylosis.
[2019-02-14 16:45] LABS: INR 1.4 (<1.2); Prothrombin Time 14.4 sec (9.0-12.0)
--- NOTE | 2019-02-14 16:49 | XR ---
EXAMINATION TYPE: XR Hip Complete RT DATE OF EXAM: 02/14/2019 COMPARISON: 11/26/2017 HISTORY: 63-year-old male with pain and fall TECHNIQUE: 2 views FINDINGS: Plate and screw fixation along the proximal right humerus. Residual lucency seen along the subtrochan teric/intertrochanteric region. 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 An obliquely oriented lucency projecting over the femoral neck appears to be projectional artifact. IMPRESSION: 1. Prior plate and screw fixation. There may be partial nonunion along a portion of the intertrochant elsy/subtrochanteric region. The frog leg lateral view shows some successful areas of bony bridging. 2. Apparent new acetabular protrusio (as compared to 11/26/2017) suggests accelerated right hip OA. S uspect complete loss of axial joint space with associated bony remodeling.
--- NOTE | 2019-02-14 16:57 | XR ---
EXAMINATION TYPE: XR foot complete RT DATE OF EXAM: 02/14/2019 COMPARISON: NONE HISTORY: 63-year-old male with pain and redness, infection TECHNIQUE: 3 views FINDINGS: Marked generalized soft tissue swelling throughout the foot. Severe osteopenia. Sagittal lucency described on the ankle portion of the exam along the proximal aspect of the fifth me tatarsal not well seen on these images. No discrete osseous erosion identified with certainty. IMPRESSION: Severe generalized soft tissue swelling. No discrete osseous erosion identified at this time. The possible subtle nondisplaced transverse fracture along the proximal aspect of the fifth metatarsa l is not clearly confirmed on these images. Correlate for any pinpoint tenderness. Again, refer to th e lateral view of the ankle.
[2019-02-14 17:09] LABS: Band Neutrophils % 1 %; Eosinophils # (M) 0.13 k/uL (0-0.7); Lymphocytes # (M) 0.64 k/uL (1.0-4.8); Monocytes # (M) 0.38 k/uL (0-1.0); Neutrophils % (M) 81 %; Nucleated Red Blood Cells 0 /100 WBC (0-0); Total Cells Counted 100
[2019-02-14 17:10] LABS: Poikilocytosis (M) Present; Polychromasia Present
[2019-02-14] MEDS ORDERED: ACETAMINOPHEN TAB 325 MG TAB PO PRN (19:47)
[2019-02-14] MEDS ORDERED: NALOXONE 0.4 MG/ML 1 ML VIAL IV PRN (19:47)
[2019-02-14] MEDS ORDERED: ONDANSETRON 4 MG/2 ML VIAL IVP PRN (19:47)
[2019-02-14] MEDS: SODIUM CHLORIDE 0.9% 1,000 ML IV SCH (20:29)
[2019-02-14] MEDS ORDERED: AMPICILLIN-SULBACTAM 3 GM in SODIUM CHLORIDE 0.9% 100 ML IVPB STA (21:01)
[2019-02-15 05:29] LABS: Appearance,Urine Clear (Clear); Bilirubin,Urine 1+ (Negative); Blood,Urine Negative (Negative); Color,Urine Dark Yellow; Glucose,Urine (UA) Negative (Negative); Ketones,Urine Negative (Negative); Leukocyte Esterase,Urine Negative (Negative); Nitrite,Urine Negative (Negative); PH, Urine 6.5 (5.0-8.0); Protein,Urine Trace (Negative); Specific Gravity,Urine 1.024 (1.001-1.035)
[2019-02-15] MEDS: SODIUM CHLORIDE 0.9% 1,000 ML IV SCH ×2 (08:22→23:27)
[2019-02-15 09:03] LABS: ALT 52 U/L (21-72); AST 211 U/L (17-59); African American GFR (CKD) >90 (>60 ml/min/1.73 sqM); Albumin 1.8 g/dL (3.5-5.0); Alkaline Phosphatase 149 U/L (38-126); Anion Gap 6 mmol/L; Blood Urea Nitrogen 15 mg/dL (9-20); Calcium 7.6 mg/dL (8.4-10.2); Carbon Dioxide 21 mmol/L (22-30); Chloride 113 mmol/L (98-107); Glucose 104 mg/dL (74-99); Potassium 2.9 mmol/L (3.5-5.1); Sodium 140 mmol/L (137-145); Total Bilirubin 3.1 mg/dL (0.2-1.3); Total Protein 6.3 g/dL (6.3-8.2)
[2019-02-15] MEDS ORDERED: Potassium Replacement Protocol 1 EACH MISC MISCELLANE PRN (10:06)
[2019-02-15] MEDS ORDERED: Magnesium Replacement Protocol 1 EACH MISC MISCELLANE PRN (10:07)
[2019-02-15] MEDS: POTASSIUM CHLORIDE ER 20 MEQ TAB.ER PO SCH ×3 (10:18→12:43)
--- NOTE | 2019-02-15 11:47 | P.HPIM ---
History of Present Illness this is a pleasant 63 years old male with past medical history of right leg ulcers, around the right heel and lower extremity edema. Other medical problems including COPD, GERD, GI bleed secondary to duodenal ulcer needing multiple blood transfusion, thrombocytopenia, cirrhosis. He is from home .Patient is able to give information he states that he has chronic pain in his right leg/foot and right hip 4 months however the last 2 days it become really severe that he called 911 and decided to come to the hospital.patient has m ultiple chronic ulcers on the right heel and leg. Patient has been evaluated by surgical team Dr. Arevalo recommended right leg and station to home the patient looks open to the ideas but wants to discuss with his family. Patient also complaining of from occasional dyspnea and he is occasional smok er.patient also noted to be tachypneic. We will order chest x-ray and echocardiogram for systolic murmur Review of Systems CONSTITUTIONAL: No fever, no malaise, no fatigue. HEENT: No recent visual problems or hearing problems. Denied any sore throat. CARDIOVASCULAR: No orthopnea, PND, no palpitations, no syncope. PULMONARY: no hemoptysis. GASTROINTESTINAL: No diarrhea, no nausea, no vomiting, no abdominal pain. Normoactive bowel sounds. NEUROLOGICAL: No headaches, no weakness, no numbness. HEMATOLOGICAL: Denies any bleeding or petechiae. GENITOURINARY: Denies any burning micturition, frequency, or urgency. MUSCULOSKELETAL/RHEUMATOLOGICAL: Denies any back pain ENDOCRINE: Denies any polyuria or polydipsia. Past Medical History Past Medical History: COPD, GERD/Reflux, GI Bleed, Pneumonia Additional Past Medical History / Comment(s): 09/29/18 Upper GI hemorrhage/duodenal ulcer with acute blood loss anemia/multiple transfusions and intubated/vented, possible pneumonia, thrombocytopenia, hyperammonemia with possible chronic liver disease/cirrhosis-pt was transferred to [facility] and pt states they informed him he does not have liver disease/cirrhosis. Other hx; O2 2- 4L/NC prn, L hand tendonitis, lower extremity edema, current R heel ulcer being seen in wound care center, falls, R leg shorter than L leg. 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 Past Anesthesia/Blood Transfusion Reactions: No Reported Reaction Additional Past Anesthesia/Blood Transfusion Reaction / Comment(s): Pt has received blood without reaction. Past Psychological History: No Psychological Hx Reported Additional Psychological History / Comment(s): Pt resides alone in a home with ramp. He no longer drives, he has friends, family or uses a cab to get places. He has a walker but has had falls and has current R heel wound. He uses a wheelchair or motorized wheelchair. He manages his own medications. He has a pet dog named Aviacomm. He retired from [employer]. Smoking Status: Light tobacco smoker Past Alcohol Use History: Occasional Additional Past Alcohol Use History / Comment(s): Patient denies daily drinking, also denies more than 14 drinks in a week. Pt states he started smoking in 1977 and has always been a light smoker. Past Drug Use History: None Reported - Past Family History Mother Family Medical History: GERD/Reflux Additional Family Medical History / Comment(s): of crohn's disease Father Family Medical History: Diabetes Mellitus Medications and Allergies Home Medications Medication Instructions Recorded Confirmed Type Acetaminophen Tab [Tylenol] 1,000 mg PO Q6HR PRN 01/17/19 02/14/19 History Allergies Allergy/AdvReac Type Severity Reaction Status Date / Time No Known Allergies Allergy Verified 02/14/19 17:43 Physical Exam Vitals: Vital Signs Temp Pulse Pulse Resp BP BP Pulse Ox 02/15/19 07:23 169/64 02/15/19 05:00 99.5 F 105 H 20 106/51 93 L 02/14/19 22:00 98.5 F 116 H 18 133/74 93 L 02/14/19 21:25 99.0 F 108 H 18 141/77 94 L 02/14/19 18:51 111 H 18 130/65 98 02/14/19 17:00 110 H 18 133/82 99 02/14/19 14:48 96.8 F L 115 H 18 123/68 98 Intake and Output 02/14/19 02/15/19 02/15/19 22:59 06:59 14:59 Intake Total 400 400 Output Total 400 Balance 0 400 Intake: Oral 400 400 Output: Urine 400 Other: Voiding Method Incontinent Incontinent # Voids 2 GENERAL: The patient is alert and oriented x3, not in any acute distress. Well developed, well nourished. HEENT: Pupils are round and equally reacting to light. EOMI. No scleral icterus. No conjunctival pallor. Normocephalic, atraumatic. No pharyngeal erythema. No thyromegaly. CARDIOVASCULAR: S1 and S2 present. No murmurs, rubs, or gallops. PULMONARY: Chest is clear to auscultation, no wheezing or crackles. ABDOMEN: Soft, nontender, nondistended, normoactive bowel sounds. No palpable organomegaly. MUSCULOSKELETAL: No joint swelling or deformity. -EXTREMITIES: No cyanosis, clubbing, or pedal edema. right ear ulcer. There are also the lower extremity. With surrounding erythema and warmth andtenderness NEUROLOGICAL: Gross neurological examination did not reveal any focal deficits. SKIN: No rashes. No petechiae Results CBC & Chem 7: 02/14/19 15:57 02/15/19 08:38 Labs: Abnormal Lab Results - Last 24 Hours (Table) 02/14/19 02/14/19 02/14/19 Range/Units 15:57 15:57 15:57 RBC 3.40 L (4.30-5.90) m/uL Hgb 10.2 L (13.0-17.5) gm/dL Hct 33.4 L (39.0-53.0) % MCHC 30.5 L (31.0-37.0) g/dL RDW 20.2 H (11.5-15.5) % Lymphocytes # (Manual) 0.64 L (1.0-4.8) k/uL PT (9.0-12.0) sec INR (<1.2) Potassium (3.5-5.1) mmol/L Chloride 109 H (98-107) mmol/L Carbon Dioxide 20 L (22-30) mmol/L Creatinine 0.50 L (0.66-1.25) mg/dL Glucose (74-99) mg/dL Plasma Lactic Acid Milton 3.7 H* (0.7-2.0) mmol/L Calcium 8.1 L (8.4-10.2) mg/dL Total Bilirubin 4.3 H (0.2-1.3) mg/dL AST 152 H (17-59) U/L Alkaline Phosphatase 191 H (38-126) U/L Creatine Kinase 2438 H* (55-170) U/L Albumin 2.3 L (3.5-5.0) g/dL Urine Protein (Negative) Urine Bilirubin (Negative) 02/14/19 02/14/19 02/14/19 Range/Units 15:57 19:42 23:46 RBC (4.30-5.90) m/uL Hgb (13.0-17.5) gm/dL Hct (39.0-53.0) % MCHC (31.0-37.0) g/dL RDW (11.5-15.5) % Lymphocytes # (Manual) (1.0-4.8) k/uL PT 14.4 H (9.0-12.0) sec INR 1.4 H (<1.2) Potassium (3.5-5.1) mmol/L Chloride (98-107) mmol/L Carbon Dioxide (22-30) mmol/L Creatinine (0.66-1.25) mg/dL Glucose (74-99) mg/dL Plasma Lactic Acid Milton 2.2 H* 2.2 H* (0.7-2.0) mmol/L Calcium (8.4-10.2) mg/dL Total Bilirubin (0.2-1.3) mg/dL AST (17-59) U/L Alkaline Phosphatase (38-126) U/L Creatine Kinase (55-170) U/L Albumin (3.5-5.0) g/dL Urine Protein (Negative) Urine Bilirubin (Negative) 02/15/19 02/15/19 Range/Units 05:05 08:38 RBC (4.30-5.90) m/uL Hgb (13.0-17.5) gm/dL Hct (39.0-53.0) % MCHC (31.0-37.0) g/dL RDW (11.5-15.5) % Lymphocytes # (Manual) (1.0-4.8) k/uL PT (9.0-12.0) sec INR (<1.2) Potassium 2.9 L (3.5-5.1) mmol/L Chloride 113 H (98-107) mmol/L Carbon Dioxide 21 L (22-30) mmol/L Creatinine 0.56 L (0.66-1.25) mg/dL Glucose 104 H (74-99) mg/dL Plasma Lactic Acid Milton (0.7-2.0) mmol/L Calcium 7.6 L (8.4-10.2) mg/dL Total Bilirubin 3.1 H (0.2-1.3) mg/dL AST 211 H (17-59) U/L Alkaline Phosphatase 149 H (38-126) U/L Creatine Kinase (55-170) U/L Albumin 1.8 L (3.5-5.0) g/dL Urine Protein Trace H (Negative) Urine Bilirubin 1+ H (Negative) Thrombosis Risk Factor Assmnt - Choose All That Apply Any of the Below Risk Factors Present?: Yes Each Factor Represents 1 point: Obesity (BMI >25), Swollen legs (current) Other Risk Factors: Yes Each Risk Factor Represents 2 Points: Age 61-74 years Thrombosis Risk Factor Assessment Total Risk Factor Score: 4 Thrombosis Risk Factor Assessment Level: Moderate Risk Assessment and Plan Assessment: worsening and chronic right leg and heel ulcer with surrounding cellulitis elevated lactic acid, came back to normal Dyspnea Systolic murmur Electrolytes abnormality, including low potassium. Replaced Once the elevated liver enzymes, history of cirrhosis GERD COPD History of GI bleed secondary to duodenal ulcer chronically elevated bilirubin Plan: this is a pleasant 63 years old male who presents with chronic right heel and leg ulcers with superimposed cellulitis.we'll order chest x-ray and tumor consult for his dyspnea and preop evaluation. Also we'll order echocardiogram for his systolic murmur. Monitor bilirubin Labs and medication were reviewed.. Continue same treatment. Continue with symptomatic treatment. Resume home medication. Monitor lytes and vitals. DVT and GI prophylaxis. Further recommendations of the clinical course of the patient DVT prophylaxis: Subcutaneous heparin GI Prophylaxis: Pepcid PT/OT: Pending Prognosis is guarded
--- NOTE | 2019-02-15 13:01 | XR ---
EXAMINATION TYPE: XR chest 1V DATE OF EXAM: 02/15/2019 HISTORY: sob. REFERENCE: Previous study dated 10/09/2018. FINDINGS: Lung volumes are prominent. Heart size is normal. There is mild vascular congestion without montez interstitial change. Left lower lobe infiltrate described previously has cleared. Pleural spac es are clear. IMPRESSION: IMPROVED AERATION, LEFT LUNG BASE.
--- NOTE | 2019-02-15 14:30 | ECHOF ---
Referral Reason:Rule out heart disease MEASUREMENTS -------- HEIGHT: 180.3 cm WEIGHT: 86.2 kg BP: RVIDd: 3.0 cm (< 3.3) IVSd: 1.3 cm (0.6 - 1.1) LVIDd: 3.4 cm (3.9 - 5.3) LVPWd: 1.5 cm (0.6 - 1.1) IVSs: 2.1 cm LVIDs: 2.6 cm LVPWs: 1.7 cm Ao Diam: 2.6 cm (2.0 - 3.7) AV Cusp: 1.7 cm (1.5 - 2.6) LA Diam: 2.0 cm (2.7 - 3.8) MV EXCURSION: 16.659 mm (> 18.000) MV EF SLOPE: 106 mm/s (70 - 150) EPSS: 0.7 cm MV E Jordan: 0.99 m/s MV DecT: 305 ms MV A Jordan: 1.06 m/s MV E/A Ratio: 0.94 AV maxP.32 mmHg AV meanP.37 mmHg RAP: 5.00 mmHg RVSP: 47.98 mmHg TAPSE: 28.44 mm FINDINGS -------- Resting tachycardia (HR>100bpm). This was a technically good study. The left ventricular size is normal. There is moderate concentric left ventricular hypertrophy. O verall left ventricular systolic function is normal with, an EF between 55 - 60 %. The right ventricle is normal in size. The left atrial size is normal. The right atrial size is normal. Aortic valve is trileaflet and is moderately thickened. There is moderate aortic stenosis present. Peak/mean gradient across the Aortic Valve is 32.32mmHg / 21.37mmHg. The mitral valve is normal. The mitral valve leaflets are mildly thickened. Mild mitral regurgita tion is present. The tricuspid valve appears structurally normal. Mild tricuspid regurgitation present. There is m oderate pulmonary hypertension. There is no pulmonic regurgitation present. The aortic root size is normal. IVC Not well visulized. There is no pericardial effusion. CONCLUSIONS -------- 1. Resting tachycardia (HR>100bpm). 2. This was a technically good study. 3. The left ventricular size is normal. 4. There is moderate concentric left ventricular hypertrophy. 5. Overall left ventricular systolic function is normal with, an EF between 55 - 60 %. 6. The right ventricle is normal in size. 7. The left atrial size is normal. 8. The right atrial size is normal. 9. Aortic valve is trileaflet and is moderately thickened. 10. There is moderate aortic stenosis present. 11. Peak/mean gradient across the Aortic Valve is 32.32mmHg / 21.37mmHg. 12. The mitral valve is normal. 13. The mitral valve leaflets are mildly thickened. 14. Mild mitral regurgitation is present. 15. The tricuspid valve appears structurally normal. 16. Mild tricuspid regurgitation present. 17. There is moderate pulmonary hypertension. 18. There is no pulmonic regurgitation present. 19. The aortic root size is normal. 20. IVC Not well visulized. 21. There is no pericardial effusion. REGULATED PROGRAM MANAGER: Rukhsana Dacosta RDCS
--- NOTE | 2019-02-15 14:41 | CONS ---
DATE OF CONSULTATION: 02/15/2019 This patient is a 63-year-old gentleman who has been admitted to [facility] with history of fall at home. The patient has a long-standing history of a wound to his right foot and he has been coming to the wound center for local wound care. According to the patient, he has this problem for the last 10 years. The patient also has history of hip surgery done with pin and plate to the right femur. The patient also had some ankle surgery done in the past. MEDICAL HISTORY: History of COPD, history of bleeding duodenal ulcer, history of pneumonia. SURGICAL HISTORY: Patient had a right hip surgery done in the past. PHYSICAL EXAMINATION: Patient was seen in his room. NECK: Supple. CHEST: Clear. ABDOMEN: Soft. Femorals are palpable. Patient has a right hip internally rotated with the right knee is also in flexion position, cannot extend his knee and the right foot has cellulitis with the wound on the mediolateral aspect of the ankle with foul odor smell. 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 IMPRESSION: Chronic wound, right foot with a history of acetabular fracture. Patient was seen by Jerry Willard for a hip replacement. At this point, the patient does not walk and he is on the wheelchair bound with chronic infection of the foot. Most likely this gentleman will need a major amputation. I have discussed the case with the patient and his brother, they agreed. I will discuss with Dr. Jerry Willard because of his unstable hip joint, if there is any indication for amputation. I will follow with you. We will have opinion from Dr. Jerry Willard regarding major amputation. MMODL / IJN: [id number] / GIOVANNI
[2019-02-15] MEDS: AMPICILLIN-SULBACTAM 1.5 GM in SODIUM CHLORIDE 0.9% 50 ML IVPB SCH ×2 (15:27→23:25)
[2019-02-15] MEDS: traMADol 50 MG TAB PO PRN (17:56)
[2019-02-15 20:49] LABS: African American GFR (CKD) >90 (>60 ml/min/1.73 sqM); Anion Gap 5 mmol/L; Blood Urea Nitrogen 14 mg/dL (9-20); Calcium 7.4 mg/dL (8.4-10.2); Carbon Dioxide 21 mmol/L (22-30); Chloride 110 mmol/L (98-107); Glucose 132 mg/dL (74-99); Magnesium 1.7 mg/dL (1.6-2.3); Potassium 3.6 mmol/L (3.5-5.1); Sodium 136 mmol/L (137-145)
[2019-02-15] MEDS: HEPARIN SODIUM,PORCINE 5,000 UNIT/ML 1 ML VIAL SQ SCH (21:36)
[2019-02-15] MEDS: FAMOTIDINE 20 MG/2 ML VIAL IV SCH (21:36)
[2019-02-16] MEDS: traMADol 50 MG TAB PO PRN ×2 (06:26→11:34)
[2019-02-16] MEDS: AMPICILLIN-SULBACTAM 1.5 GM in SODIUM CHLORIDE 0.9% 50 ML IVPB SCH ×2 (07:34→15:13)
[2019-02-16] MEDS: HEPARIN SODIUM,PORCINE 5,000 UNIT/ML 1 ML VIAL SQ SCH ×2 (07:34→21:18)
[2019-02-16] MEDS: FAMOTIDINE 20 MG/2 ML VIAL IV SCH ×2 (07:34→21:18)
[2019-02-16 09:04] LABS: Albumin 1.8 g/dL (3.5-5.0); Bilirubin, Delta 1.3 mg/dL (0.0-0.2); Bilirubin,Unconjugated 1.1 mg/dL (0.0-1.1); Magnesium 1.6 mg/dL (1.6-2.3); Total Bilirubin 2.4 mg/dL (0.2-1.3); Total Protein 6.1 g/dL (6.3-8.2)
--- NOTE | 2019-02-16 09:38 | P.PN ---
Subjective this is a pleasant 63 years old male with past medical history of right leg ulcers, around the right heel and lower extremity edema. Other medical problems including COPD, GERD, GI bleed secondary to duodenal ulcer needing multiple blood transfusion, thrombocytopenia, cirrhosis. He is from home .Patient is able to give information he states that he has chronic pain in his right leg/foot and right hip 4 months however the last 2 days it become really severe that he called 911 and decided to come to the hospital.patient has multiple chronic ulcers on the right heel and leg. Patient has been evaluated by surgical team Dr. Arevalo recommended right leg and station to home the patient looks open to the ideas but wants to discuss with his family. Patient also complaining of from occasional dyspnea and he is occasional smoker.patient also noted to be tachypneic. We will order chest x-ray and echocardiogram for systolic murmur 02/16/2019 Patient is awake and oriented. He remembers me from yesterday. He knows why in the hospital and he knows his illness. Denies chest pain or dyspnea. Patient states that he fell from his wheelchair because he was sleepy. He denies dizziness or syncope. After he fell he was complaining of from difficulty in extending his left hand and fingers, patient states that's today is the first day his complaining from his and although it happened after a fall. He has chronic pain in his right hip area secondary to surgery many years ago, x-ray showing possible nonunion. Patient is wheelchair bound for the last 7-10 years as per patient secondary to his arthritis. Patient has chronic ulcer in his ankle. Vascular surgery recommended amputation of the right leg since his immobile and he has chronic ulcer nonhealing in his lower extremity. However patient after discussing the situation with his sons he wants a second opinion for now. He is telling me he has Dr. Sandeep Bowling that he wants to follow up with as an outpatient. Echocardiogram showing ejection fraction of 55-60% with moderate LVH., Moderate aortic stenosis. Moderate pulmonary hypertension review of systems: CONSTITUTIONAL: No fever, no malaise, no fatigue. HEENT: No recent visual problems or hearing problems. Denied any sore throat. CARDIOVASCULAR: No orthopnea, PND, no palpitations, no syncope. PULMONARY: no hemoptysis. GASTROINTESTINAL: No diarrhea, no nausea, no vomiting, no abdominal pain. Normoactive bowel sounds. NEUROLOGICAL: No headaches, no weakness, no numbness. HEMATOLOGICAL: Denies any bleeding or petechiae. GENITOURINARY: Denies any burning micturition, frequency, or urgency. MUSCULOSKELETAL/RHEUMATOLOGICAL: Denies any back pain ENDOCRINE: Denies any polyuria or polydipsia. Active Medications Generic Name Dose Route Start Last Admin Trade Name Freq PRN Reason Stop Dose Admin Acetaminophen 650 mg 02/14/19 19:47 Tylenol Tab PO Q6HR PRN Mild Pain or Fever > 100.5 Famotidine 20 mg 02/15/19 21:00 02/16/19 07:34 Pepcid IV 20 mg Q12HR ASHLEY Administration Heparin Sodium (Porcine) 5,000 unit 02/15/19 21:00 02/16/19 07:34 Heparin SQ 5,000 unit Q12HR ASHLEY Administration Sodium Chloride 1,000 mls @ 75 mls/hr 02/14/19 20:00 02/15/19 23:27 Saline 0.9% IV 75 mls/hr .[id number] ASHLEY Administration Ampicillin Sodium/Sulbactam 50 mls @ 100 mls/hr 02/15/19 16:00 02/16/19 07:34 Sodium 1.5 gm/ Sodium Chloride IVPB 100 mls/hr Q8HR ASHLEY Administration Miscellaneous Information 1 each 02/15/19 10:06 Potassium Per Protocol MISCELLANE DAILY PRN Per Protocol Protocol Miscellaneous Information 1 each 02/15/19 10:07 Magnesium Per Protocol MISCELLANE DAILY PRN Per Protocol Protocol Morphine Sulfate 4 mg 02/14/19 19:47 Morphine Sulfate (Inj) IV Q4HR PRN Severe Pain Naloxone HCl 0.2 mg 02/14/19 19:47 Narcan IV Q2M PRN Opioid Reversal Ondansetron HCl 4 mg 02/14/19 19:47 Zofran IVP Q8HR PRN Nausea And Vomiting Tramadol HCl 50 mg 02/14/19 19:47 02/16/19 06:26 Ultram PO 50 mg Q6H PRN Administration Moderate Pain Objective - Vital Signs Vital signs: Vital Signs Temp 98.3 F 02/16/19 07:00 Pulse 92 02/16/19 07:35 Resp 16 02/16/19 07:35 BP 111/59 02/16/19 07:00 Pulse Ox 95 02/16/19 07:00 Intake & Output 02/15/19 02/16/19 02/16/19 18:59 06:59 18:59 Intake Total 1200 Output Total 600 300 200 Balance 600 -300 -200 Intake: Oral 1200 Output: Urine 600 300 200 Other: Voiding Method Incontinent Incontinent # Voids 2 2 - Exam GENERAL: The patient is alert and oriented x3, not in any acute distress. Well developed, well nourished. HEENT: Pupils are round and equally reacting to light. EOMI. No scleral icterus. No conjunctival pallor. Normocephalic, atraumatic. No pharyngeal erythema. No thyromegaly. CARDIOVASCULAR: S1 and S2 present. No murmurs, rubs, or gallops. PULMONARY: Chest is clear to auscultation, no wheezing or crackles. ABDOMEN: Soft, nontender, nondistended, normoactive bowel sounds. No palpable organomegaly. MUSCULOSKELETAL: No joint swelling or deformity. -EXTREMITIES: No cyanosis, clubbing, or pedal edema. right ear ulcer. There are also the lower extremity. With surrounding erythema and warmth and tenderness -Patient cannot extend his fifth fingers although is wrist extension is 5/5, left elbow flexion and extension is 5/5 as well. No tenderness or swelling or erythema is noted on the left forearm or hand. No deformity or discoloration NEUROLOGICAL: Gross neurological examination did not reveal any focal deficits. SKIN: No rashes. No petechiae - Labs CBC & Chem 7: 02/14/19 15:57 02/15/19 20:22 Labs: Abnormal Lab Results - Last 24 Hours (Table) 02/15/19 02/16/19 Range/Units 20:22 08:23 Sodium 136 L (137-145) mmol/L Chloride 110 H (98-107) mmol/L Carbon Dioxide 21 L (22-30) mmol/L Creatinine 0.64 L (0.66-1.25) mg/dL Glucose 132 H (74-99) mg/dL Calcium 7.4 L (8.4-10.2) mg/dL Total Bilirubin 2.4 H (0.2-1.3) mg/dL Delta Bilirubin 1.3 H (0.0-0.2) mg/dL AST 217 H (17-59) U/L Alkaline Phosphatase 162 H (38-126) U/L Total Protein 6.1 L (6.3-8.2) g/dL Albumin 1.8 L (3.5-5.0) g/dL Microbiology - Last 24 Hours (Table) 02/14/19 15:57 Blood Culture - Preliminary Blood No Growth after 24 hours Assessment and Plan Assessment: worsening and chronic right leg and heel ulcer with surrounding cellulitis Moderate aortic stenosis with systolic murmur. 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 Replaced Once the elevated liver enzymes, history of cirrhosis GERD COPD History of GI bleed secondary to duodenal ulcer chronically elevated bilirubin Plan: this is a pleasant 63 years old male who presents with chronic right heel and leg ulcers with superimposed cellulitis. rhabdomyolysis and moderate aortic stenosis. Continue with antibiotics. Patient refuses surgical interven tion/amputation by vascular surgery currently and he wants to follow up with his physician as an outside for a second opinion. Also will call cardiology consult for his wall disease. Continue with IV fluid and follow-up creatinine kinase level and electrolytes. Also we will do x-ray of the hand and call For orthopedic consult and neuro consult Labs and medication were reviewed.. Continue same treatment. Continue with symptomatic treatment. Resume home medication. Monitor lytes and vitals. DVT and GI prophylaxis. Further recommendations of the clinical course of the patient DVT prophylaxis: Subcutaneous heparin GI Prophylaxis: Pepcid Prognosis is guarded
--- NOTE | 2019-02-16 09:54 | XR ---
EXAMINATION TYPE: XR hand complete LT , 3 VIEWS DATE OF EXAM ORDERED: 02/16/2019 HISTORY: fall and can not extend the hand . COMPARISON: None. FINDINGS: There is joint space loss in the MCP joints of the first through third digits. There is hy pertrophic change in the PIP joint of the left small finger. No fracture or dislocation is seen. IMPRESSION: 1. NO ACUTE OSSEOUS LESION. 2. DEGENERATIVE CHANGE.
[2019-02-16] MEDS: SODIUM CHLORIDE 0.9% 1,000 ML IV SCH ×2 (11:40→21:19)
--- NOTE | 2019-02-16 12:35 | P.CRDCN ---
History of Present Illness History of present illness: HISTORY OF PRESENTING ILLNESS This is a pleasant 63-year-old male past medical history significant for COPD, GI bleed, chronic liver disease, chronic nicotine dependence. history of alcohol abuse and chronic right heel ulcer. He presented to the hospital 02/14 with a fall. He does not follow in the office with a emergency operator for any reason. We have been asked to see him in consultation for aortic stenosis found on echocardiogram. Echocardiogram revealed preserved LV systolic function with ejection fraction 55-60%, aortic valve is trileaflet and moderately thickened with moderate aortic stenosis with a mean gradient of 21 mmHg, mild MR and moderate pulmonary hypertension noted. He is seen and examined sitting up in bed with his son at the bedside. He denies prior history of coronary artery disease. He has currently being evaluated by vascular surgery and the recommendation is a right AKA. The patient is quite adamant he is not willing to undergo surgery at this point. He denies symptoms of chest discomfort, dizziness or palpitations. He states he has chronic shortness of breath secondary to his COPD with hypoxia at home. He does wear home oxygen as needed. DIAGNOSTICS No EKG obtained on admission. Chest xray mild vascular congestion without interstitial changes, clearing of previously noted left lower lobe infiltrate. Laboratory reviewed, WBC 6.4, hemoglobin 10.2, platelets 200, INR 1.4, sodium 136, potassium 3.6, creatinine 0.64, lactic acid on admission 3. 7 repeat 1.5, CK on admission 2438, repeat pending. He takes no daily cardiac medications. REVIEW OF SYSTEMS At the time of my exam: CONSTITUTIONAL: Denies fever or chills. CARDIOVASCULAR: Denies chest pain, shortness of breath, orthopnea, PND or palpitations. RESPIRATORY: Denies cough. GASTROINTESTINAL: Denies abdominal pain, diarrhea, constipation, nausea or vo miting. MUSCULOSKELETAL: Denies myalgias. NEUROLOGIC: Denies numbness, tingling or weakness. ENDOCRINE: Denies fatigue, weight change, polydipsia or polyurina. GENITOURINARY: Denies burning, hematuria or urgency with micturation. HEMATOLOGIC: Denies history of anemia or bleeding. PHYSICAL EXAMINATION Blood pressure 111/59 heart rate 86 afebrile and maintaining oxygen saturaiton on room air. CONSTITUTIONAL: No apparent distress. HEENT: Head is normocephalic. Pupils are equal, round. Sclerae anicteric. Mucous membranes of the mouth are moist. No JVD. No carotid bruit. CHEST EXAMINATION: Lungs are clear to auscultation. No chest wall tenderness is noted on palpation or with deep breathing. HEART EXAMINATION: Regular rate and rhythm. S1, S2 heard. Systolic ejection murmur at the base, no gallops or rub. ABDOMEN: Soft, nontender. Positive bowel sounds. EXTREMITIES: Gauze dressing to right lower extremity, skin changes and dry sloughing appearance of the visualized skin above the dressing. Left lower extremity with 1+ pitting edema. NEUROLOGIC EXAMINATION: Patient is awake, alert and oriented x3. ASSESSMENT Aortic stenosis Rhabdomyolysis Fall from wheelchair, mechanical. No syncope per the patient. Non-healing right heel ulcer Cellulitis Lactic acidosis on admission, improved COPD Hypoalbuminemia Chronic nicotine dependence Alcohol abuse PLAN Echocardiogram has been reviewed. Gradient is essentially unchanged from previous echo in 2016. Would recommend initiation of lopressor 25 mg BID, check a lipid panel and close follow up in the outpatient setting. Obtain baseline EKG. Smoking and alcohol cessation recommended. Thank you kindly for this consultation Nurse Practitioner note has been reviewed, I agree with a documented findings and plan of care. Patient was seen and examined. Past Medical History Past Medical History: COPD, GERD/Reflux, GI Bleed, Pneumonia Additional Past Medical History / Comment(s): 09/29/18 Upper GI hemorrhage/duodenal ulcer with acute blood loss anemia/multiple transfusions and intubated/vented, possible pneumonia, thrombocytopenia, hyperammonemia with possible chronic liver disease/cirrhosis-pt was transferred to [facility] and pt states they informed him he does not have liver disease/cirrhosis. Other hx; O2 2- 4L/NC prn, L hand tendonitis, lower extremity edema, current R heel ulcer being seen in wound care center, falls, R leg shorter than L leg. 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 MDRO Source:: Ankle Past Surgical History: Orthopedic Surgery Additional Past Surgical History / Comment(s): R hip ORIF with screws/rods, R ankle tendon surgery, multiple endoscopies-EGDs/colonoscopies, L heel debridement. Past Anesthesia/Blood Transfusion Reactions: No Reported Reaction Additional Past Anesthesia/Blood Transfusion Reaction / Comment(s): Pt has received blood without reaction. Past Psychological History: No Psychological Hx Reported Smoking Status: Light tobacco smoker - Past Family History Mother Family Medical History: GERD/Reflux Additional Family Medical History / Comment(s): of crohn's disease Father Family Medical History: Diabetes Mellitus Medications and Allergies Home Medications Medication Instructions Recorded Confirmed Type Acetaminophen Tab [Tylenol] 1,000 mg PO Q6HR PRN 01/17/19 02/14/19 History Allergies Allergy/AdvReac Type Severity Reaction Status Date / Time No Known Allergies Allergy Verified 02/14/19 17:43 Physical Exam Vitals: Vital Signs Temp Pulse Resp BP BP Pulse Ox 02/16/19 07:35 92 16 02/16/19 07:00 98.3 F 86 16 111/59 95 02/15/19 22:56 99.8 F H 92 16 114/58 94 L 02/15/19 15:03 97 18 02/15/19 14:04 99.5 F 97 18 113/52 96 02/15/19 12:43 105 H 20 Intake and Output 02/15/19 02/16/19 02/16/19 22:59 06:59 14:59 Intake Total 400 400 Output Total 700 200 200 Balance -300 -200 200 Intake: Oral 400 400 Output: Urine 700 200 200 Other: Voiding Method Incontinent Incontinent # Voids 2 2 Results 02/14/19 15:57 02/15/19 20:22 Cardiac Enzymes 02/16/19 Range/Units 08:23 AST 217 H (17-59) U/L Comprehensive Metabolic Panel 02/15/19 02/16/19 Range/Units 20:22 08:23 Sodium 136 L (137-145) mmol/L Potassium 3.6 (3.5-5.1) mmol/L Chloride 110 H (98-107) mmol/L Carbon Dioxide 21 L (22-30) mmol/L BUN 14 (9-20) mg/dL Creatinine 0.64 L (0.66-1.25) mg/dL Glucose 132 H (74-99) mg/dL Calcium 7.4 L (8.4-10.2) mg/dL Unconjugated Bilirubin 1.1 (0.0-1.1) mg/dL AST 217 H (17-59) U/L ALT 56 (21-72) U/L Alkaline Phosphatase 162 H (38-126) U/L Total Protein 6.1 L (6.3-8.2) g/dL Albumin 1.8 L (3.5-5.0) g/dL Current Medications Generic Name Dose Route Start Last Admin Trade Name Freq PRN Reason Stop Dose Admin Acetaminophen 650 mg 02/14/19 19:47 Tylenol Tab PO Q6HR PRN Mild Pain or Fever > 100.5 Famotidine 20 mg 02/15/19 21:00 02/16/19 07:34 Pepcid IV 20 mg Q12HR ASHLEY Administration Heparin Sodium (Porcine) 5,000 unit 02/15/19 21:00 02/16/19 07:34 Heparin SQ 5,000 unit Q12HR ASHLEY Administration Sodium Chloride 1,000 mls @ 75 mls/hr 02/14/19 20:00 02/16/19 11:40 Saline 0.9% IV 75 mls/hr .[id number] ASHLEY Administration Ampicillin Sodium/Sulbactam 50 mls @ 100 mls/hr 02/15/19 16:00 02/16/19 07:34 Sodium 1.5 gm/ Sodium Chloride IVPB 100 mls/hr Q8HR ASHLEY Administration Miscellaneous Information 1 each 02/15/19 10:06 Potassium Per Protocol MISCELLANE DAILY PRN Per Protocol Protocol Miscellaneous Information 1 each 02/15/19 10:07 Magnesium Per Protocol MISCELLANE DAILY PRN Per Protocol Protocol Morphine Sulfate 4 mg 02/14/19 19:47 Morphine Sulfate (Inj) IV Q4HR PRN Severe Pain Naloxone HCl 0.2 mg 02/14/19 19:47 Narcan IV Q2M PRN Opioid Reversal Ondansetron HCl 4 mg 02/14/19 19:47 Zofran IVP Q8HR PRN Nausea And Vomiting Tramadol HCl 50 mg 02/14/19 19:47 02/16/19 11:34 Ultram PO 50 mg Q6H PRN Administration Moderate Pain Intake and Output 02/15/19 02/16/19 02/16/19 22:59 06:59 14:59 Intake Total 400 400 Output Total 700 200 200 Balance -300 -200 200 Intake: Oral 400 400 Output: Urine 700 200 200 Other: Voiding Method Incontinent Incontinent # Voids 2 2 02/14/19 15:57 02/15/19 20:22
[2019-02-16] MEDS: METOPROLOL TARTRATE 25 MG TAB PO SCH ×2 (13:08→21:18)
[2019-02-16 13:59] LABS: Cholesterol 54 mg/dL (<200); HDL Cholesterol 8 mg/dL (40-60); Triglycerides 38 mg/dL (<150)
[2019-02-16 20:52] LABS: Anisocytosis Slight; HCT 28.8 % (39.0-53.0); Hypochromasia Marked; MCH 30.2 pg (25.0-35.0); MCHC 30.3 g/dL (31.0-37.0); MCV 99.8 fL (80.0-100.0); Macrocytosis Moderate; Platelet Count 143 k/uL (150-450); RBC 2.88 m/uL (4.30-5.90); WBC 4.9 k/uL (3.8-10.6)
[2019-02-16 20:58] LABS: HGB 8.7 gm/dL (13.0-17.5)
[2019-02-16 21:55] LABS: Basophils # (M) 0.05 k/uL (0-0.2); Eosinophils # (M) 0.69 k/uL (0-0.7); Lymphocytes # (M) 0.54 k/uL (1.0-4.8); Monocytes # (M) 0.49 k/uL (0-1.0); Neutrophils % (M) 64 %; Nucleated Red Blood Cells 0 /100 WBC (0-0); Target Cells Present; Total Cells Counted 100
[2019-02-17] MEDS: AMPICILLIN-SULBACTAM 1.5 GM in SODIUM CHLORIDE 0.9% 50 ML IVPB SCH ×4 (00:45→23:02)
[2019-02-17] MEDS: MORPHINE SULFATE 4 MG/ML SYRINGE IV PRN ×2 (03:12→23:07)
[2019-02-17] MEDS: HEPARIN SODIUM,PORCINE 5,000 UNIT/ML 1 ML VIAL SQ SCH ×2 (08:09→21:29)
[2019-02-17] MEDS: METOPROLOL TARTRATE 25 MG TAB PO SCH ×2 (08:09→21:29)
[2019-02-17] MEDS: traMADol 50 MG TAB PO PRN ×2 (08:09→16:29)
[2019-02-17] MEDS: FAMOTIDINE 20 MG/2 ML VIAL IV SCH ×2 (08:09→21:29)
[2019-02-17 08:40] LABS: Albumin 1.7 g/dL (3.5-5.0); Bilirubin, Delta 1.2 mg/dL (0.0-0.2); Bilirubin,Unconjugated 1.2 mg/dL (0.0-1.1); Magnesium 1.6 mg/dL (1.6-2.3); Total Bilirubin 2.4 mg/dL (0.2-1.3); Total Protein 6.3 g/dL (6.3-8.2)
[2019-02-17 08:52] LABS: Anisocytosis Moderate; HCT 29.7 % (39.0-53.0); Hypochromasia Marked; MCH 30.5 pg (25.0-35.0); MCHC 30.2 g/dL (31.0-37.0); MCV 100.8 fL (80.0-100.0); Macrocytosis Moderate; Mean Platelet Volume 7.1; Platelet Count 161 k/uL (150-450); RBC 2.94 m/uL (4.30-5.90); RDW 20.2 % (11.5-15.5); WBC 4.3 k/uL (3.8-10.6)
[2019-02-17 09:46] LABS: Eosinophils # (M) 0.39 k/uL (0-0.7); Lymphocytes # (M) 0.34 k/uL (1.0-4.8); Monocytes # (M) 0.26 k/uL (0-1.0); Neutrophils % (M) 77 %; Nucleated Red Blood Cells 0 /100 WBC (0-0); Total Cells Counted 100
[2019-02-17 09:54] LABS: Poikilocytosis (M) Present; Polychromasia Present
[2019-02-17] MEDS: SODIUM CHLORIDE 0.9% 1,000 ML IV SCH ×2 (10:33→16:22)
--- NOTE | 2019-02-17 10:33 | P.CNOR ---
History of Present Illness - HPI Consult date: 02/17/19 History of present illness: This is a 63-year-old male who is admitted for rhabdomyolysis and chronic right foot infection. Orthopedics is consulted due to left hand contracture. Patient states that he fell on 02/13/2019 at home. Patient states that he believes he fell asleep on the left upper extremity and he is now unable to extend the fingers of the left hand. Patient states that this has never happened to him before and he denies any numbness or tingling in the left upper extremity. Patient denies any pain in the left hand. Patient states that he is able to make a fist with the left hand. Patient's past medical history significant for right lower extremity ulcers and swelling, COPD, GERD, GI bleed, thrombocytopenia and cirrhosis. Patient has been evaluated by the vascular team for right lower extremity infection and they discussed possibility for amputation. Patient also has a history of ORIF right hip in 2014. Patient denies any worsening pain in the right hip and he is wheelchair-bound. Patient denies any numbness, tingling, fever/chills. Review of Systems See HPI. Past Medical History Past Medical History: COPD, GERD/Reflux, GI Bleed, Pneumonia Additional Past Medical History / Comment(s): 09/29/18 Upper GI hemorrh age/duodenal ulcer with acute blood loss anemia/multiple transfusions and intubated/vented, possible pneumonia, thrombocytopenia, hyperammonemia with possible chronic liver disease/cirrhosis-pt was transferred to [facility] and pt states they informed him he does not have liver disease/cirrhosis. Other hx; O2 2- 4L/NC prn, L hand tendonitis, lower extremity edema, current R heel ulcer being seen in wound care center, falls, R leg shorter than L leg. 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 Past Anesthesia/Blood Transfusion Reactions: No Reported Reaction Additional Past Anesthesia/Blood Transfusion Reaction / Comm: Pt has received blood without reaction. Past Psychological History: No Psychological Hx Reported Smoking Status: Light tobacco smoker - Past Family History Mother Family Medical History: GERD/Reflux Additional Family Medical History / Comment(s): of crohn's disease Father Family Medical History: Diabetes Mellitus Medications and Allergies Home Medications Medication Instructions Recorded Confirmed Type Acetaminophen Tab [Tylenol] 1,000 mg PO Q6HR PRN 01/17/19 02/14/19 History Allergies Allergy/AdvReac Type Severity Reaction Status Date / Time No Known Allergies Allergy Verified 02/14/19 17:43 Physical Examination On exam the fingers of the left hand are in resting in flexion. Patient is unable to actively extend the fingers of the left hand. Patient has full passive extension of the fingers of the left hand without pain or difficulty. Patient is able to make a fist with the left hand and has good retirement village manager strength. Sensation is intact. There is no tenderness to palpation, swelling, erythema or ecchymosis. Patient has good range of motion of the right shoulder, elbow and wrist. Radial pulse is 2+. Neurovascular status and circulatory status are intact. Results X-rays of the left hand are negative for any fracture or dislocation. Degenerative changes noted. - Labs Labs: Abnormal Lab Results - Last 24 Hours (Table) 02/16/19 02/16/19 02/16/19 Range/Units 08:23 08:23 20:16 RBC 2.88 L (4.30-5.90) m/uL Hgb 8.7 L D (13.0-17.5) gm/dL Hct 28.8 L (39.0-53.0) % MCV (80.0-100.0) fL MCHC 30.3 L (31.0-37.0) g/dL RDW 20.0 H (11.5-15.5) % Plt Count 143 L (150-450) k/uL Lymphocytes # (Manual) 0.54 L (1.0-4.8) k/uL Total Bilirubin (0.2-1.3) mg/dL Unconjugated Bilirubin (0.0-1.1) mg/dL Delta Bilirubin (0.0-0.2) mg/dL AST (17-59) U/L Alkaline Phosphatase (38-126) U/L Creatine Kinase 2070 H* (55-170) U/L Albumin (3.5-5.0) g/dL HDL Cholesterol 8 L (40-60) mg/dL 02/17/19 02/17/19 Range/Units 07:54 07:54 RBC 2.94 L (4.30-5.90) m/uL Hgb 9.0 L (13.0-17.5) gm/dL Hct 29.7 L (39.0-53.0) % MCV 100.8 H (80.0-100.0) fL MCHC 30.2 L (31.0-37.0) g/dL RDW 20.2 H (11.5-15.5) % Plt Count (150-450) k/uL Lymphocytes # (Manual) (1.0-4.8) k/uL Total Bilirubin 2.4 H (0.2-1.3) mg/dL Unconjugated Bilirubin 1.2 H (0.0-1.1) mg/dL Delta Bilirubin 1.2 H (0.0-0.2) mg/dL AST 203 H (17-59) U/L Alkaline Phosphatase 170 H (38-126) U/L Creatine Kinase 1192 H* (55-170) U/L Albumin 1.7 L (3.5-5.0) g/dL HDL Cholesterol (40-60) mg/dL Microbiology - Last 24 Hours (Table) 02/14/19 15:57 Blood Culture - Preliminary Blood No Growth after 48 hours H & H 02/14/19 02/16/19 02/17/19 Range/Units 15:57 20:16 07:54 Hgb 10.2 L 8.7 L D 9.0 L (13.0-17.5) gm/dL Hct 33.4 L 28.8 L 29.7 L (39.0-53.0) % Coagulation 02/14/19 Range/Units 15:57 INR 1.4 H (<1.2) Result Diagrams: 02/17/19 07:54 02/15/19 20:22 Assessment and Plan Assessment: Weakness of left hand. Plan: #1. X-rays are reviewed and are negative for fracture. #2. Appreciate input from neurology regarding the left hand. #3. Option to obtain brace for the left hand to avoid contracture. #4. No surgical intervention planned.
[2019-02-17] MEDS ORDERED: PETROLATUM, WHITE OINT 50 GM TUBE TOPICAL PRN (11:54)
--- NOTE | 2019-02-17 12:01 | P.PN ---
Subjective Patient resting in bed complains of severe right foot pain. Skin noted be macerated to right heel. Discolored to [id number]. Positive femoral pulse. Noted left hand contracture and left arm weakness. Patient states that he is not agreeing to amputation Objective - Vital Signs Vital signs: Vital Signs Temp 97.4 F L 02/17/19 07:00 Pulse 74 02/17/19 07:00 Resp 17 02/17/19 08:12 BP 130/73 02/17/19 07:00 Pulse Ox 94 L 02/17/19 07:00 Intake & Output 02/16/19 02/17/19 02/17/19 18:59 06:59 18:59 Intake Total 400 400 Output Total 650 375 Balance -250 -375 400 Intake: Oral 400 400 Output: Urine 650 375 Other: Voiding Method Incontinent Incontinent Incontinent # Voids 2 - Constitutional General appearance: Present: mild distress - EENT Eyes: Present: PERRLA Ears: bilateral: normal - Neck Neck: Present: normal ROM - Respiratory Respiratory: bilateral: diminished - Cardiovascular Rhythm: regular Abnormal Heart Sounds: Present: systolic murmur - Gastrointestinal General gastrointestinal: Present: soft - Integumentary Integumentary Comment(s): Macerated ulceration to right heel Integumentary: Present: cellulitis - Neurologic Neurologic: Present: CNII-XII intact - Musculoskeletal Musculoskeletal: Present: left sided weakness - Psychiatric Psychiatric: Present: A&O x's 3, appropriate affect, intact judgment & insight - Labs CBC & Chem 7: 02/17/19 07:54 02/15/19 20:22 Labs: Abnormal Lab Results - Last 24 Hours (Table) 02/16/19 02/16/19 02/16/19 Range/Units 08:23 08:23 20:16 RBC 2.88 L (4.30-5.90) m/uL Hgb 8.7 L D (13.0-17.5) gm/dL Hct 28.8 L (39.0-53.0) % MCV (80.0-100.0) fL MCHC 30.3 L (31.0-37.0) g/dL RDW 20.0 H (11.5-15.5) % Plt Count 143 L (150-450) k/uL Lymphocytes # (Manual) 0.54 L (1.0-4.8) k/uL Total Bilirubin (0.2-1.3) mg/dL Unconjugated Bilirubin (0.0-1.1) mg/dL Delta Bilirubin (0.0-0.2) mg/dL AST (17-59) U/L Alkaline Phosphatase (38-126) U/L Creatine Kinase 2070 H* (55-170) U/L Albumin (3.5-5.0) g/dL HDL Cholesterol 8 L (40-60) mg/dL 02/17/19 02/17/19 Range/Units 07:54 07:54 RBC 2.94 L (4.30-5.90) m/uL Hgb 9.0 L (13.0-17.5) gm/dL Hct 29.7 L (39.0-53.0) % MCV 100.8 H (80.0-100.0) fL MCHC 30.2 L (31.0-37.0) g/dL RDW 20.2 H (11.5-15.5) % Plt Count (150-450) k/uL Lymphocytes # (Manual) 0.34 L (1.0-4.8) k/uL Total Bilirubin 2.4 H (0.2-1.3) mg/dL Unconjugated Bilirubin 1.2 H (0.0-1.1) mg/dL Delta Bilirubin 1.2 H (0.0-0.2) mg/dL AST 203 H (17-59) U/L Alkaline Phosphatase 170 H (38-126) U/L Creatine Kinase 1192 H* (55-170) U/L Albumin 1.7 L (3.5-5.0) g/dL HDL Cholesterol (40-60) mg/dL Microbiology - Last 24 Hours (Table) 02/14/19 15:57 Blood Culture - Preliminary Blood No Growth after 48 hours - Imaging and Cardiology Chest x-ray: report reviewed (echo normal EF) Assessment and Plan Plan: Assessment Peripheral vascular disease with cellulitis to right foot Dyspnea Systolic murmur Hypo-kalemia corrected History of cirrhosis with alcohol use GERD COPD Duodenal ulcer Chronic renal elevated bilirubin Fall Left hand contractured left arm weakness Plan Continue consultation with cardiology vascular orthopedics and neurology Discussed transferred to [facility]
--- NOTE | 2019-02-17 12:40 | CT ---
EXAMINATION TYPE: CT brain wo con DATE OF EXAM: 02/17/2019 COMPARISON: 10/03/2018 HISTORY: Left hand and left leg pain and weakness. CT DLP: 1054.[address] of the brain was performed. The ventricles, basal cisterns and sulci overlying the cerebral convexities demonstrate mild enlargem ent. There is no evidence for intracranial hemorrhage or sulcal effacement. There is decreased attenuation about the periventricular white matter and deep white matter of both c erebral hemispheres, compatible with chronic small vessel ischemia. Differential diagnosis does inclu de demyelination. No mass effects are seen.No midline shift. Osseous calvarium is intact. Moderate chronic sinusitis right maxillary sinus. If symptoms persist consider MRI. IMPRESSION: 1. Age related atrophic and chronic small vessel ischemic change without acute intracranial process s een at this time.
--- NOTE | 2019-02-17 13:54 | P.CON ---
Consult Note - . Consult date: 02/17/19 Assessment/Plan:: This is a pleasant 63-year-old male who is being seen by Wound care center for nonhealing ulcerations to the right calcaneus. Patient is a known patient to the wound care center. However he has not been seen since January 17. At that time we are utilizing collagen silver to the right posterior calcaneus ulceration. Patient now has ulcerations to the lateral and medial aspect of calcaneus. Patient states that he's been using home care to change the dressings and sent home care was coming and he didn't feel he needed to be seen by wound care center. He went to his primary care physician who sent him to the hospital due to the worsening of the ulcerations. Ulceration to count pain he has shows large amount of adherent Slough minimal granulation seen, nonadherent dressing in place. Patient has significant drainage from the site. Patient complains of pain and tenderness to the area. Review of systems: Integumentary: Reports ulceration to right lower extremity, no new ulcerations. No pruritus. Physical exam: Integumentary: See HPI Assessment/plan: 1. Pressure ulcer of right heel stage III. Apply honey alginate, saline moistened gauze, rolled gauze to right calcaneus. Continue with wound care outpatient wound care treatment. Continue offloading and nonweight bearing status to right calcaneus. Instructed patient to call the wound care center to reestablish as a patient. Patient verbalized understanding states that he will call. 2. Severe protein/calorie malnourished 3. Noncompliance with other medical treatment averaging Thank you kindly for the consult. Any questions please contact the wound care center DNP note has been reviewed and discussed with Dr. Shen and the impression and plan of care has been directed as dictated.
--- NOTE | 2019-02-17 14:05 | PN ---
PROGRESS NOTE This is a 63-year-old gentleman whom I seen for consult. Patient has a chronic wound right foot with infection for the past years and he came with foul smelling odor to the right foot. Patient also has a contracture of the knee and also patient had a right hip surgery done in the past with pin and plate and the patient has a unstable right hip. Patient was seen by Orthopedic Associate in the past and now he has been admitted with infection and he is wheelchair bound. The patient femoral is 1+. The patient has a chronic infection involving both feet. He is under care of Wound Center at [facility]. Patient's prognosis guarded. Patient wants to go for second opinion to see Dr. Graf and in the meantime, patient will be treated with IV antibiotic and local wound care. MMODL / IJN: [id number] /
--- NOTE | 2019-02-17 16:07 | P.DS ---
Providers Date of admission: 02/14/19 21:00 Expected date of discharge: 02/17/19 Attending physician: Narayan Trevino Consults: 02/15/19 10:10 Consult Physician Routine Consulting Provider: Kev Arevalo Consult Reason/Comments: multiple wounds Do you want consulting provider notified?: Yes 02/16/19 09:30 Consult Physician Routine Consulting Provider: Jerry Willard Consult Reason/Comments: LEFT HAND CONTRACTED AND PREV. RIGHT HIP SURG. Do you want consulting provider notified?: Yes 02/16/19 09:34 Consult Physician Urgent Consulting Provider: Hubert Mckinney Consult Reason/Comments: moderate Do you want consulting provider notified?: Yes 02/16/19 09:37 Consult Physician Routine Consulting Provider: Dominique Maxwell Consult Reason/Comments: impaired left hand extension Do you want consulting provider notified?: Yes 02/17/19 07:54 Consult Physician Urgent Consulting Provider: Sammy Werner Consult Reason/Comments: reduced extension of left hand fingers Do you want consulting provider notified?: Yes Primary care physician: Narayan Trevino Hospital Course: 63 year old male presented to ER with complaints of increasing pain and worsening cellulitis of right foot Patient has chronic ulcerationsto right heel Has new contracture to left hand and weakness to left leg. After discussion with vascular surgeon it wanataliya decided to transfer patient for possible amp utation. assessment fall with elevated CK improving chronic cellulitis right foot with deformity dyspnea chronic COPD lt hand contraculcer ture and left leg weakness GERD Hx duodenal hx of nicotine and alcohol abuse plan transfer to [facility] Patient Condition at Discharge: Stable Plan - Discharge Summary New Discharge Prescriptions: No Action Acetaminophen Tab [Tylenol] 1,000 mg PO Q6HR PRN PRN Reason: Pain Discharge Medication List Acetaminophen Tab [Tylenol] 1,000 mg PO Q6HR PRN 01/17/19 [History] Follow up Appointment(s)/Referral(s): Narayan Trevino MD [Primary Care Provider] - 1-2 days Wound Healing,Center [NON-STAFF] - 1 Week Hubert Mckinney MD [STAFF PHYSICIAN] - 2 Weeks [facility], [NON-STAFF] -
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
[2019-02-17 23:24] VITALS: BP 112/64; PULSE 76; RESP 20; TEMP 97.8
== END 2019-02-17 23:55 | disposition short-term general hospital (02) | DRG 593 ==
LOC: EC 14:46 → 4MS4W 21:00
PROVIDERS: ADMIT Family Medicine; ATTEND Family Medicine
DX: L89.613 Pressure ulcer of right heel, stage 3 (principal); E87.2 Acidosis; L03.115 Cellulitis of right lower limb; M62.82 Rhabdomyolysis; D64.9 Anemia, unspecified; D69.6 Thrombocytopenia, unspecified; E87.6 Hypokalemia; E88.09 Other disorders of plasma-protein metabolism, not elsewhere classified; F10.10 Alcohol abuse, uncomplicated; F17.200 Nicotine dependence, unspecified, uncomplicated; G56.30 Lesion of radial nerve, unspecified upper limb; G89.29 Other chronic pain; I27.20 Pulmonary hypertension, unspecified; I35.0 Nonrheumatic aortic (valve) stenosis; I70.234 Atherosclerosis of native arteries of right leg with ulceration of heel and midfoot; J44.9 Chronic obstructive pulmonary disease, unspecified; K21.9 Gastro-esophageal reflux disease without esophagitis; K74.60 Unspecified cirrhosis of liver; M21.332 Wrist drop, left wrist; M24.542 Contracture, left hand; M24.569 Contracture, unspecified knee; R09.02 Hypoxemia; W05.0XXA Fall from non-moving wheelchair, initial encounter; Y92.009 Unspecified place in unspecified non-institutional (private) residence as the place of occurrence of the external cause; Z83.3 Family history of diabetes mellitus; Z87.01 Personal history of pneumonia (recurrent); Z91.19 Patient's noncompliance with other medical treatment and regimen; Z91.81 History of falling; Z99.3 Dependence on wheelchair; Z99.81 Dependence on supplemental oxygen; Z60.2 Problems related to living alone; Z71.6 Tobacco abuse counseling; Z68.25 Body mass index [BMI] 25.0-25.9, adult
CPT/HCPCS: 36415; 70450; 71045; 73502; 80048; 80053; 80061; 80076; 81003; 82550; 83605; 83735; 85025; 85610; 85730; 87040; 93005; 93306; 96361; 96365; 99285

== ENCOUNTER 2019-03-07 08:57 | Inpatient (IN) | payer MEDICARE, BC ==
[2019-03-07] MEDS ORDERED: cefTRIAXone IN SWFI 1,000 MG/10 ML SYRINGE IVP STA (09:31)
[2019-03-07] MEDS ORDERED: MORPHINE SULFATE 4 MG/ML SYRINGE IVP STA ×2 (09:40→09:41)
[2019-03-07 09:52] LABS: Anisocytosis Slight; Basophils % (A) 0 %; Eosinophils % (A) 0 %; HCT 30.2 % (39.0-53.0); HGB 9.6 gm/dL (13.0-17.5); Hypochromasia Marked; Lymphocytes # (A) 0.5 k/uL (1.0-4.8); Lymphocytes % (A) 7 %; MCH 30.2 pg (25.0-35.0); MCHC 31.9 g/dL (31.0-37.0); Macrocytosis Slight; Mean Platelet Volume 6.7; Monocytes # (A) 0.7 k/uL (0-1.0); Monocytes % (A) 10 %; Neutrophils # (A) 5.8 k/uL (1.3-7.7); Neutrophils % (A) 79 %; Platelet Count 137 k/uL (150-450); Poikilocytosis Slight; RBC 3.19 m/uL (4.30-5.90); RDW 18.9 % (11.5-15.5); WBC 7.4 k/uL (3.8-10.6)
--- NOTE | 2019-03-07 09:52 | ED ---
General Adult HPI - General Source: patient, RN notes reviewed Mode of arrival: EMS Limitations: physical limitation <Agustin Gallegos - Last Filed: 03/07/19 12:42> <Serg Cooley - Last Filed: 03/07/19 13:03> - General Chief complaint: Extremity Problem,Nontraumatic Stated complaint: Infection Time Seen by Provider: 03/07/19 09:03 - History of Present Illness Initial comments: 63-year-old male with a past medical history of COPD, GERD, GI bleed, pneumonia, lower extremity edema, ulcers presents to the emergency department for a chief complaint of right lower hurst knee pain. Patient states his [id number] called the ambulance because his right leg looked infected. Patient unsure how long it has been worsening in pain. States he often will have ulcers of the foot. He denies fevers or chills.Patient has no other complaints at this time including shortness of breath, chest pain, abdominal pain, nausea or vomiting, headache, or visual changes. (Agustin Gallegos) - Related Data Home Medications Medication Instructions Recorded Confirmed Amoxic-Pot Clav 875-125Mg 1 tab PO Q12HR 03/07/19 03/07/19 [Augmentin 875-125] Apixaban [Eliquis] 5 mg PO BID 03/07/19 03/07/19 Multivit-Min/FA/Lycopen/Lutein 1 tab PO DAILY 03/07/19 03/07/19 [Centrum Silver Men Tablet] Pantoprazole [Protonix] 40 mg PO BID 03/07/19 03/07/19 SILVER sulfADIAZINE Cream 1 applic TOPICAL BID 03/07/19 03/07/19 [Silvadene 1% Cream] Allergies Allergy/AdvReac Type Severity Reaction Status Date / Time No Known Allergies Allergy Verified 03/07/19 11:06 Review of Systems ROS Other: All systems not noted in ROS Statement are negative. <Agustin Gallegos - Last Filed: 03/07/19 12:42> ROS Other: All systems not noted in ROS Statement are negative. <Serg Cooley - Last Filed: 03/07/19 13:03> ROS Statement: Those systems with pertinent positive or pertinent negative responses have been documented in the HPI. Past Medical History Past Medical History: COPD, GERD/Reflux, GI Bleed, Pneumonia Additional Past Medical History / Comment(s): 09/29/18 Upper GI hemorrhage/duodenal ulcer with acute blood loss anemia/multiple transfusions and intubated/vented, possible pneumonia, thrombocytopenia, hyperammonemia with possible chronic liver disease/cirrhosis-pt was transferred to [facility] and pt states they informed him he does not have liver disease/cirrhosis. Other hx; O2 2- 4L/NC prn, L hand tendonitis, lower extremity edema, current R heel ulcer being seen in wound care center, falls, R leg shorter than L leg. 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 Past Anesthesia/Blood Transfusion Reactions: No Reported Reaction Additional Past Anesthesia/Blood Transfusion Reaction / Comment(s): Pt has received blood without reaction. Past Psychological History: No Psychological Hx Reported Smoking Status: Light tobacco smoker Past Alcohol Use History: None Reported Past Drug Use History: None Reported - Past Family History Mother Family Medical History: GERD/Reflux Additional Family Medical History / Comment(s): of crohn's disease Father Family Medical History: Diabetes Mellitus <Agustin Gallegos P - Last Filed: 03/07/19 12:42> General Exam Limitations: physical limitation General appearance: alert, in no apparent distress Head exam: Present: atraumatic, normocephalic, normal inspection Eye exam: Present: normal appearance, PERRL, EOMI. Absent: scleral icterus, conjunctival injection, periorbital swelling ENT exam: Present: normal exam, mucous membranes moist Neck exam: Present: normal inspection. Absent: tenderness, meningismus, lymphadenopathy Respiratory exam: Present: normal lung sounds bilaterally. Absent: respiratory distress, wheezes, rales, rhonchi, stridor Cardiovascular Exam: Present: regular rate, normal rhythm, normal heart sounds. Absent: systolic murmur, diastolic murmur, rubs, gallop, clicks Extremities exam: Present: normal capillary refill (cap refill < 2 seconds in the RLE), joint swelling (edema of the right foot), other (erythema of right foot and lower leg with breakdown to the lateral aspect of the right foot and abjke) <Agustin Gallegos - Last Filed: 03/07/19 12:42> Course <Serg Cooley - Last Filed: 03/07/19 13:03> Vital Signs 03/07/19 03/07/19 03/07/19 09:01 10:00 11:00 Temperature 98 F 98.2 F Pulse Rate 75 79 84 Respiratory 16 18 15 Rate Blood Pressure 114/63 115/66 110/63 O2 Sat by Pulse 97 95 95 Oximetry 03/07/19 12:00 Temperature Pulse Rate 78 Respiratory 16 Rate Blood Pressure 113/78 O2 Sat by Pulse 96 Oximetry - Reevaluation(s) Reevaluation #1: 03/07/19 13:02 PA supervision: I proceeded [id number] evaluation patient he does demonstrate evidence of cellulitis of right lower extremity with hypokalemia and borderline hypomagnesemia. Patient will be admitted the case was discussed with Dr. Wong who is covering Dr. Trevino. (Serg Cooley) EKG Findings - EKG Comments: EKG Findings:: Sinus rhythm with PACs, ventricular rate 76, WA interval 148, QTC 587 <Agustin Gallegos - Last Filed: 03/07/19 12:42> Medical Decision Making - Lab Data Result diagrams: 03/07/19 09:18 03/07/19 09:18 <Agustin Gallegos - Last Filed: 03/07/19 12:42> - Lab Data Result diagrams: 03/07/19 09:18 03/07/19 09:18 <Serg Cooley - Last Filed: 03/07/19 13:03> - Medical Decision Making Patient presents for infection of the right foot. Patient has had chronic wounds in this area however redness and pain have worsened recently. Hemoglobin 9.6 which is stable for patient. Patient does have mild hyponatremia, was given IV fluids. Potassium 2.8 which was replaced both IV and orally. Mag 1.8, patient was given 1 g. EKG was obtained which does show evidence of QT prolongation with a QTC of 587. Patient does have a lactic noted of 4.0. Patient was given broad-spectrum antibiotics immediately upon arrival. He was also given 30 mL/kg based on his ideal body weight of 75.2 kg. However patient does not meet sepsis criteria as he has a normal white count, normal heart rate. X-ray of the right foot and ankle were completed. These show severe degenerative changes with marked osteopenia. There is soft tissue swelling overlying the dorsum of the foot that may be infectious in nature. Chest x-ray shows chronic changes without evidence for acute pulmonary disease. Pt will be admitted for cellulitis of the right foot as well as hypokalemia and QT prolongation. Patient was also evaluated by Dr. Cooley (Agustin Gallegos) - Lab Data Lab Results 03/07/19 03/07/19 03/07/19 Range/Units 09:18 09:18 09:18 WBC 7.4 (3.8-10.6) k/uL RBC 3.19 L (4.30-5.90) m/uL Hgb 9.6 L (13.0-17.5) gm/dL Hct 30.2 L (39.0-53.0) % MCV 94.6 D (80.0-100.0) fL MCH 30.2 (25.0-35.0) pg MCHC 31.9 (31.0-37.0) g/dL RDW 18.9 H (11.5-15.5) % Plt Count 137 L (150-450) k/uL Neutrophils % 79 % Lymphocytes % 7 % Monocytes % 10 % Eosinophils % 0 % Basophils % 0 % Neutrophils # 5.8 (1.3-7.7) k/uL Lymphocytes # 0.5 L (1.0-4.8) k/uL Monocytes # 0.7 (0-1.0) k/uL Eosinophils # 0.0 (0-0.7) k/uL Basophils # 0.0 (0-0.2) k/uL Hypochromasia Marked Poikilocytosis Slight Anisocytosis Slight Macrocytosis Slight PT (9.0-12.0) sec INR (<1.2) APTT (22.0-30.0) sec Sodium 130 L (137-145) mmol/L Potassium 2.8 L (3.5-5.1) mmol/L Chloride 100 (98-107) mmol/L Carbon Dioxide 19 L (22-30) mmol/L Anion Gap 11 mmol/L BUN 21 H (9-20) mg/dL Creatinine 0.62 L (0.66-1.25) mg/dL Est GFR (CKD-EPI)AfAm >90 (>60 ml/min/1.73 sqM) Est GFR (CKD-EPI)NonAf >90 (>60 ml/min/1.73 sqM) Glucose 117 H (74-99) mg/dL Lactic Ac Sepsis Rflx Plasma Lactic Acid Milton 4.0 H* (0.7-2.0) mmol/L Calcium 8.0 L (8.4-10.2) mg/dL Magnesium (1.6-2.3) mg/dL Total Bilirubin 3.7 H (0.2-1.3) mg/dL AST 87 H (17-59) U/L ALT 53 (21-72) U/L Alkaline Phosphatase 213 H (38-126) U/L Total Protein 6.8 (6.3-8.2) g/dL Albumin 1.9 L (3.5-5.0) g/dL 03/07/19 03/07/19 03/07/19 Range/Units 09:18 09:18 10:01 WBC (3.8-10.6) k/uL RBC (4.30-5.90) m/uL Hgb (13.0-17.5) gm/dL Hct (39.0-53.0) % MCV (80.0-100.0) fL MCH (25.0-35.0) pg MCHC (31.0-37.0) g/dL RDW (11.5-15.5) % Plt Count (150-450) k/uL Neutrophils % % Lymphocytes % % Monocytes % % Eosinophils % % Basophils % % Neutrophils # (1.3-7.7) k/uL Lymphocytes # (1.0-4.8) k/uL Monocytes # (0-1.0) k/uL Eosinophils # (0-0.7) k/uL Basophils # (0-0.2) k/uL Hypochromasia Poikilocytosis Anisocytosis Macrocytosis PT 19.9 H (9.0-12.0) sec INR 2.0 H (<1.2) APTT 43.4 H (22.0-30.0) sec Sodium (137-145) mmol/L Potassium (3.5-5.1) mmol/L Chloride (98-107) mmol/L Carbon Dioxide (22-30) mmol/L Anion Gap mmol/L BUN (9-20) mg/dL Creatinine (0.66-1.25) mg/dL Est GFR (CKD-EPI)AfAm (>60 ml/min/1.73 sqM) Est GFR (CKD-EPI)NonAf (>60 ml/min/1.73 sqM) Glucose (74-99) mg/dL Lactic Ac Sepsis Rflx Y Plasma Lactic Acid Milton (0.7-2.0) mmol/L Calcium (8.4-10.2) mg/dL Magnesium 1.8 (1.6-2.3) mg/dL Total Bilirubin (0.2-1.3) mg/dL AST (17-59) U/L ALT (21-72) U/L Alkaline Phosphatase (38-126) U/L Total Protein (6.3-8.2) g/dL Albumin (3.5-5.0) g/dL Disposition Is patient prescribed a controlled substance at d/c from ED?: No Time of Disposition: 11:36 <Agustin Gallegos - Last Filed: 03/07/19 12:42> <Serg Cooley - Last Filed: 03/07/19 13:03> Clinical Impression: Cellulitis, QT prolongation, Hypokalemia Disposition: ADMITTED IP TO THIS HOSP Condition: Serious Referrals: Narayan Trevino MD [Primary Care Provider] - 1-2 days
[2019-03-07 09:54] LABS: ALT 53 U/L (21-72); AST 87 U/L (17-59); African American GFR (CKD) >90 (>60 ml/min/1.73 sqM); Albumin 1.9 g/dL (3.5-5.0); Alkaline Phosphatase 213 U/L (38-126); Anion Gap 11 mmol/L; Blood Urea Nitrogen 21 mg/dL (9-20); Carbon Dioxide 19 mmol/L (22-30); Chloride 100 mmol/L (98-107); Glucose 117 mg/dL (74-99); Non-African American GFR(CKD) >90 (>60 ml/min/1.73 sqM); Potassium 2.8 mmol/L (3.5-5.1); Sodium 130 mmol/L (137-145); Total Bilirubin 3.7 mg/dL (0.2-1.3); Total Protein 6.8 g/dL (6.3-8.2)
[2019-03-07 09:55] LABS: MCV 94.6 fL (80.0-100.0)
[2019-03-07] MEDS ORDERED: SODIUM CHLORIDE 0.9% 1,000 ML IV STA ×3 (10:02→13:00)
[2019-03-07 10:04] LABS: Partial Thromboplastin Time 43.4 sec (22.0-30.0); Prothrombin Time 19.9 sec (9.0-12.0)
[2019-03-07] MEDS ORDERED: POTASSIUM CHLORIDE ER 20 MEQ TAB.ER PO STA (10:05)
--- NOTE | 2019-03-07 10:29 | XR ---
EXAMINATION TYPE: XR foot complete RT, XR ankle complete RT DATE OF EXAM: 03/07/2019 CLINICAL HISTORY: pain TECHNIQUE: Frontal, lateral and oblique images of the right foot and ankle are obtained. COMPARISON: 02/14/2019 FINDINGS: Severe osteopenia noted. There is osseous fusion of the tibiotalar joint and throughout the midfoot. There is soft tissue swelling noted about the dorsum of the foot. I do not see evidence for a displaced fracture at this time. IMPRESSION: Severe degenerative change with marked osteopenia. Soft tissue swelling overlying the dorsum of the f oot may be infectious in nature. I do not see a displaced fracture at this time.
--- NOTE | 2019-03-07 10:30 | XR ---
EXAMINATION TYPE: XR chest 1V portable DATE OF EXAM: 03/07/2019 HISTORY: Shortness of breath. COMPARISON: 02/15/19 TECHNIQUE: Single view of the chest is submitted. FINDINGS: Demonstrated are scattered senescent parenchymal change. There is no evidence for focal infiltrate. The heart is stable. Hilar and mediastinal structures are within normal limits. Degenerative changes are seen of the dorsal spine. IMPRESSION: 1. Chronic changes without evidence for acute pulmonary disease.
[2019-03-07] MEDS ORDERED: SODIUM CHLORIDE 0.9% 500 ML 260 ML IV STA (10:41)
[2019-03-07] MEDS ORDERED: MAGNESIUM SULFATE-D5W PMX 1 GM in DEXTROSE/WATER 1 100ML.BAG IVPB ONE (11:21)
[2019-03-07] MEDS: POTASSIUM CHLORIDE 10 MEQ in WATER FOR INJECTION 1 100ML.BAG IVPB SCH ×4 (11:47→15:16)
[2019-03-07] MEDS ORDERED: NALOXONE 0.4 MG/ML 1 ML VIAL IV PRN (12:32)
[2019-03-07] MEDS ORDERED: MORPHINE SULFATE 4 MG/ML SYRINGE IV PRN (12:32)
[2019-03-07] MEDS ORDERED: VANCOMYCIN IV PER PHARMACY 1 EACH MISC MISCELLANE PRN (12:41)
[2019-03-07] MEDS ORDERED: VANCOMYCIN 1,500 MG in SODIUM CHLORIDE 0.9% 250 ML IVPB STA (12:48)
[2019-03-07] MEDS ORDERED: Potassium Replacement Protocol 1 EACH MISC MISCELLANE PRN (15:31)
[2019-03-07] MEDS ORDERED: Magnesium Replacement Protocol 1 EACH MISC MISCELLANE PRN (15:31)
[2019-03-07] MEDS ORDERED: ALPRAZolam 0.25 MG TAB PO PRN (15:32)
[2019-03-07] MEDS ORDERED: TEMAZEPAM 15 MG CAP PO PRN (15:32)
--- NOTE | 2019-03-07 16:36 | HP ---
HISTORY AND PHYSICAL I am covering for Dr. Trevino. DATE OF SERVICE: 03/07/2019 CHIEF COMPLAINTS: Weakness and bilateral leg ulcers. HISTORY OF PRESENT ILLNESS: This 63-year-old gentleman with a past medical history of COPD, GERD, GI bleed, pneumonia, history of apparent alcohol, cirrhosis of the liver, chronic liver disease, being followed by Dr. Narayan Trevino in the outpatient setting, was previously admitted with leg ulcers. Apparently the leg ulcers were not getting better. Patient apparently had a fall, also. The patient was taken by his family to the [facility] emergency room and was admitted for further evaluation and treatment. Patient has features of sepsis. There is no history of any fever, rigor or chills, no history of headache, loss of consciousness, seizures. The patient is mildly confused. PAST MEDICAL HISTORY: 1. History of COPD. 2. GERD. 3. GI bleed. 4. History of pneumonia. 5. 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 6. History of upper GI bleeding. HOME MEDICATIONS: 1. Multivitamins 1 p.o. daily. 2. Silver sulfadiazine 1 p.o. b.i.d. 3. Protonix 40 mg p.o. b.i.d. 4. Eliquis 5 mg p.o. b.i.d. 5. Augmentin b.i.d. ALLERGIES: NONE. FAMILY HISTORY: No history of heart disease or strokes in the family. SOCIAL HISTORY: History of smoking. REVIEW OF SYSTEMS: ENT: Diminished hearing. Diminished vision. CARDIOVASCULAR SYSTEM: No angina, palpitations. RESPIRATORY SYSTEM: No cough, hemoptysis. GI: No nausea, vomiting. : No dysuria or retention. NERVOUS SYSTEM: No numbness, weakness. ALLERGY/IMMUNOLOGY: No asthma, hayfever. MUSCULOSKELETAL: As mentioned earlier. HEMATOLOGY/ONCOLOGY: No history of anemia. ENDOCRINE: No history of diabetes, hypothyroidism. CONSTITUTIONAL: As mentioned earlier. DERMATOLOGY: As mentioned earlier. RHEUMATOLOGY: Negative. PSYCHIATRY: As mentioned earlier. PHYSICAL EXAMINATION: Patient alert and oriented x3. Pulse 78, blood pressure 113/78, respirations 16, temperature 98.2, pulse ox 94% on room air. HEENT: Conjunctivae normal. Oral mucosa moist. NECK: No jugular venous distention. No carotid bruit. No lymph node enlargement. CARDIOVASCULAR SYSTEM: S1, S2 muffled. No S3. No S4. RESPIRATORY SYSTEM: Breath sounds diminished at the bases. A few rhonchi. No crackles. ABDOMEN: Soft, non-tender. No mass palpable. LEGS: Significant ulceration of bilateral legs, right lateral worse extending from the hurst downwards. Multiple necrotic areas as well as multiple exposed areas are also present. Pulses are diminished bilaterally. NERVOUS SYSTEM: Higher functions as mentioned earlier. Moves all 4 limbs. No focal motor or sensory deficit. LYMPHATICS: No lymph node palpable in neck, axillae or groin. SKIN: As mentioned earlier. JOINTS: No active deforming arthropathy. LABS: WBC 7.4, hemoglobin 9.6, and platelets 137. INR is 2. Sodium 130, potassium 2.8. Lactic acid is 4. ASSESSMENT: 1. Bilateral leg cellulitis, right more than the left, with failure of outpatient treatment with severe sepsis and severe pain. 2. Anemia, normocytic; anemia of chronic disease. 3. Hyponatremia. 4. Hypokalemia. 5. Possible cirrhosis of the liver. 6. Elevated AST and bilirubin, possibly hepatitis, possibly alcoholic elevated lactic acid. 7. History of chronic obstructive pulmonary disease. 8. Gastroesophageal reflux disease. 9. History of pneumonia. 10.History of gastrointestinal bleed with peptic ulcer. 11.History of multiple transfusions. 12.History of hyperammonemia, chronic liver disease. 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 14.FULL CODE. RECOMMENDATIONS AND DISCUSSION: In this 63-year-old gentleman who presented with multiple complex medical issues, we will monitor the patient closely, continue the current medications, continue with symptomatic treatment. Will initiate broad-spectrum IV antibiotics. Infectious disease evaluation. Continue with sepsis protocol. Otherwise, DVT prophylaxis. Continue with supplementation with potassium. Magnesium is normal at this time. Will repeat and follow electrolytes closely. Home medications will be reordered. PT/OT evaluation. Possible ECF rehab. Overall prognosis extremely guarded because of multiple complex medical issues. Further recommendations to follow. A copy of this dictation is being forwarded to Dr. Trevino, who is the primary physician. MMODL / IJN: [id number] / MTDD
[2019-03-07] MEDS: PIPERACILLIN-TAZOBACTAM 3.375 GM in SODIUM CHLORIDE 0.9% 100 ML IVPB SCH (17:34)
[2019-03-07] MEDS: PANTOPRAZOLE 40 MG TABLET PO SCH (17:34)
[2019-03-07] MEDS: VANCOMYCIN 1,500 MG in SODIUM CHLORIDE 0.9% 250 ML IVPB SCH (21:57)
[2019-03-07] MEDS: APIXABAN 5 MG TAB PO SCH (21:57)
[2019-03-08] MEDS: PIPERACILLIN-TAZOBACTAM 3.375 GM in SODIUM CHLORIDE 0.9% 100 ML IVPB SCH ×4 (00:35→23:48)
[2019-03-08 03:18] LABS: Anisocytosis Slight; Basophils % (A) 0 %; Eosinophils # (A) 0.1 k/uL (0-0.7); Eosinophils % (A) 1 %; HCT 24.5 % (39.0-53.0); Hypochromasia Marked; Lymphocytes # (A) 0.5 k/uL (1.0-4.8); Lymphocytes % (A) 6 %; MCH 29.9 pg (25.0-35.0); MCHC 31.8 g/dL (31.0-37.0); MCV 94.1 fL (80.0-100.0); Macrocytosis Slight; Mean Platelet Volume 7.2; Monocytes # (A) 0.7 k/uL (0-1.0); Monocytes % (A) 10 %; Neutrophils # (A) 6.2 k/uL (1.3-7.7); Neutrophils % (A) 82 %; Poikilocytosis Slight; RDW 19.2 % (11.5-15.5); WBC 7.6 k/uL (3.8-10.6)
[2019-03-08 03:24] LABS: HGB 7.8 gm/dL (13.0-17.5)
[2019-03-08 04:13] LABS: ALT 42 U/L (21-72); AST 69 U/L (17-59); African American GFR (CKD) >90 (>60 ml/min/1.73 sqM); Albumin 1.5 g/dL (3.5-5.0); Alkaline Phosphatase 173 U/L (38-126); Anion Gap 5 mmol/L; Blood Urea Nitrogen 16 mg/dL (9-20); Calcium 7.3 mg/dL (8.4-10.2); Carbon Dioxide 20 mmol/L (22-30); Chloride 106 mmol/L (98-107); Glucose 74 mg/dL (74-99); Magnesium 1.8 mg/dL (1.6-2.3); Non-African American GFR(CKD) >90 (>60 ml/min/1.73 sqM); Potassium 3.4 mmol/L (3.5-5.1); Sodium 131 mmol/L (137-145); Total Bilirubin 2.7 mg/dL (0.2-1.3); Total Protein 5.4 g/dL (6.3-8.2)
[2019-03-08 04:19] LABS: Anisocytosis (M) Present; Ovalocytes Present; Platelet Count 92 k/uL (150-450)
[2019-03-08] MEDS: PANTOPRAZOLE 40 MG TABLET PO SCH ×2 (06:46→18:03)
[2019-03-08] MEDS: MULTIVITAMINS, THERA 1 EACH TAB PO SCH (08:28)
[2019-03-08] MEDS: APIXABAN 5 MG TAB PO SCH ×3 (08:28→22:44)
[2019-03-08] MEDS: VANCOMYCIN 1,500 MG in SODIUM CHLORIDE 0.9% 250 ML IVPB SCH ×2 (09:21→22:44)
--- NOTE | 2019-03-08 09:51 | CONS ---
CONSULTATION This is a 63-year-old gentleman who has been admitted through the ER with a chronic wound, right lower extremity. The patient was recently discharged from the hospital. Patient wanted to go for a second opinion by Dr. Graf. The patient has had a chronic wound to the right lower extremity for many years and he is under the [facility]. PAST MEDICAL AND SURGICAL HISTORY: 1. Patient had hip surgery done in the past. 2. History of pneumonia. 3. History of COPD. 4. History of GI bleed. 5. The patient also has a history of cirrhosis of the liver. PHYSICAL EXAMINATION: Patient was seen in his room. The patient has some breathing issues and his chest has crackles bilaterally. Abdomen is soft. Femorals are 1+. The patient has a chronic wound on the medial aspect of the ankle and also on the dorsal aspect of the foot with some pressure ulcer on the heel. The patient has an unstable hip joint from the previous surgery. PLAN: The patient is a high risk for any major amputation. Patient will be treated with IV antibiotic and Aquacel Silver to the wound. Prognosis guarded. Will follow with you. Thank you very much for the consultation. MMODL / IJN: [id number] /
[2019-03-08] MEDS ORDERED: MULTIVITAMINS, THERA 1 EACH TAB PO SCH (12:00)
[2019-03-08] MEDS ORDERED: IPRATROPIUM-ALBUTEROL 3 ML NEB INHALATION PRN (14:27)
--- NOTE | 2019-03-08 14:41 | P.CONS ---
History of Present Illness - Reason for Consult Consult date: 03/08/19 - Chief Complaint Progressive weakness - History of Present Illness 63-year-old male with history of alcoholism, COPD, gastrointestinal bleeding, cirrhosis of the liver with chronic liver disease is found the outpatient setting by Dr. Trevino. His had multiple hospitalizations here [facility] and now presents from home with increasing weakness, worsening of his bilateral looks to me ulcerations. Is related that he has a history of severe peripheral vascular disease with multiple ulcerations to his lower extremities. Is related that he had been evaluated at this facility but wanted a second opinion before he proceeded to any further surgical interventions which includes offered amputation to the right lower extremity. At this time it is not clear that any of this further evaluations has occurred now presents back to Hospital acutely ill week unable to walk. He is also a very poor historian and is lethargic. Upon direct questioning he does complain of pain to his legs. Review of Systems ROS unobtainable: due to mental status Past Medical History Past Medical History: COPD, Deep Vein Thrombosis (DVT), GERD/Reflux, GI Bleed, Hypertension, Pneumonia, Vascular Disorder Additional Past Medical History / Comment(s): Pt recently admitted to [facility] on 02/14/19 with chronic cellulitis R foot with deformity/L hand contracture/L leg weakness and was transferred to [facility]. Pt states he had an angiogram done there. Other hx: Upper GI hemorrhage/duodenal ulcer with acute blood loss anemia/multiple transfusions and intubated/vented, possible pneumonia/ thrombocytopenia/ hyperammonemia with possible chronic liver disease/cirrhosis-pt was transferred to [facility] and pt states they informed him he does not have liver disease/cirrhosis, O2 2-4L/NC prn, L hand tendonitis, lymphedema/lower extremity edema, DVT l upper extremity, pancytopenia, hyperbi lirubenemia, cholelithiasis, current R heel ulcer being seen in wound care center, bilateral lower leg wounds, falls, R leg shorter than L leg. 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 MDRO Source:: Ankle Past Surgical History: Orthopedic Surgery Additional Past Surgical History / Comment(s): R hip ORIF with screws/rods, R ankle tendon surgery, multiple endoscopies-EGDs/colonoscopies,multiple debridements, aortagrams. Past Anesthesia/Blood Transfusion Reactions: No Reported Reaction Additional Past Anesthesia/Blood Transfusion Reaction / Comm: Pt has received blood without reaction. Smoking Status: Light tobacco smoker - Past Family History Mother Family Medical History: GERD/Reflux Additional Family Medical History / Comment(s): of crohn's disease Father Family Medical History: Diabetes Mellitus Medications and Allergies Home Medications and Allergies Comment(s): Current Medications Hydrocodone Bitart/Acetaminophen (Bulverde 5-325) 1 each PO Q4HR PRN PRN Reason: Moderate Pain Albuterol/Ipratropium (Duoneb 0.5 Mg-3 Mg/3 Ml Soln) 3 ml INHALATION RT-QID PRN PRN Reason: Shortness Of Breath Or Wheezing Albuterol/Ipratropium (Duoneb 0.5 Mg-3 Mg/3 Ml Soln) 3 ml INHALATION RT-QID ASHLEY Alprazolam (Xanax) 0.25 mg PO TID PRN PRN Reason: Anxiety Apixaban (Eliquis) 5 mg PO BID [facility] Last Admin: 03/08/19 08:33 Dose: Not Given Documented by: Vancomycin HCl 1,500 mg/ (Sodium Chloride) 250 mls @ 125 mls/hr IVPB Q12HR [facility] Last Admin: 03/08/19 09:21 Dose: 125 mls/hr Documented by: Piperacillin Sod/Tazobactam (Sod 3.375 gm/ Sodium Chloride) 100 mls @ 25 mls/hr IVPB Q8HR [facility] Last Admin: 03/08/19 08:28 Dose: 25 mls/hr Documented by: Miscellaneous Information (Magnesium Per Protocol) 1 each MISCELLANE DAILY PRN; Protocol PRN Reason: Per Protocol Miscellaneous Information (Potassium Per Protocol) 1 each MISCELLANE DAILY PRN; Protocol PRN Reason: Per Protocol Miscellaneous Information (Vancomycin Trough Due) 0 each MISCELLANE DIRECTED ONE Stop: 03/09/19 08:01 Morphine Sulfate (Morphine Sulfate (Inj)) 4 mg IV Q6H PRN PRN Reason: Severe Pain Multivitamins (Theragran) 1 each PO DAILY [facility] Last Admin: 03/08/19 08:28 Dose: 1 each Documented by: Naloxone HCl (Narcan) 0.2 mg IV Q2M PRN PRN Reason: Opioid Reversal Pantoprazole Sodium (Protonix) 40 mg PO AC-BID ASHLEY Last Admin: 03/08/19 06:46 Dose: 40 mg Documented by: Temazepam (Restoril) 15 mg PO HS PRN PRN Reason: Insomnia Home Medications Medication Instructions Recorded Confirmed Type Amoxic-Pot Clav 875-125Mg 1 tab PO Q12HR 03/07/19 03/07/19 History [Augmentin 875-125] Apixaban [Eliquis] 5 mg PO BID 03/07/19 03/07/19 History Multivit-Min/FA/Lycopen/Lutein 1 tab PO DAILY 03/07/19 03/07/19 History [Centrum Silver Men Tablet] Pantoprazole [Protonix] 40 mg PO BID 03/07/19 03/07/19 History SILVER sulfADIAZINE Cream 1 applic TOPICAL BID 03/07/19 03/07/19 History [Silvadene 1% Cream] Allergies Allergy/AdvReac Type Severity Reaction Status Date / Time No Known Allergies Allergy Verified 03/07/19 11:06 Physical Exam Vitals: Vital Signs Temp Pulse Pulse Resp BP BP Pulse Ox 03/08/19 08:00 97.6 F 104 H 18 131/64 94 L 03/08/19 04:30 98.6 F 103 H 16 95/51 95 03/08/19 02:00 98.0 F 03/08/19 00:00 94.5 F L 95 18 161/67 96 03/07/19 23:15 94.5 F L 03/07/19 21:30 92.3 F L 87 16 102/54 95 03/07/19 16:50 90 16 131/66 96 03/07/19 16:00 98 F 82 18 122/85 95 Intake and Output 03/07/19 03/08/19 03/08/19 22:59 06:59 14:59 Intake Total 120 Balance 120 Intake: Oral 120 Other: Voiding Method Urinal Diaper Diaper # Voids 1 1 Weight 81.647 kg 81.64 kg 63-year-old male who appears older than his stated age, arousable but poor historian. Seems to be somewhat uncomfortable. HEENT: Anicteric conjunctiva are pink and moist nasal mucosa grossly intact without significant lesions, there is no thrush. Dentures are noted, is evidence of mild epistaxis to the left nare Neck: The neck is supple without significant lymphadenopathy or thyromegaly. Lungs: Symmetrical air entry with evidence of expiratory wheezing few crackles at the bases Heart: Regular positive S4 no stimulant murmur click or rub Abdomen: Positive bowel sounds soft and nontender without palpable masses or organomegaly. There was no guarding or rebound. Extremities: Upper extremities without significant lesions, the lower extremities revealed evidence of the marked abnormality is. The right leg is much worse in the left. Really has is of chronic edema, chronic skin discolor ation, chronic ulcerations lateral as well as medial over the malleoli is under the foot. He has significant discoloration to the right hip. There appears to be deep tissue injury, there is notation of falls. There is also notation of that ORIF site to the right hip of an undetermined age. Neuro: Arousable poor historian Results CBC & Chem 7: 03/08/19 02:51 03/08/19 02:51 Labs: Abnormal Lab Results - Last 24 Hours (Table) 03/07/19 03/07/19 03/07/19 Range/Units 14:23 18:23 22:38 RBC (4.30-5.90) m/uL Hgb (13.0-17.5) gm/dL Hct (39.0-53.0) % RDW (11.5-15.5) % Plt Count (150-450) k/uL Lymphocytes # (1.0-4.8) k/uL Sodium (137-145) mmol/L Potassium (3.5-5.1) mmol/L Carbon Dioxide (22-30) mmol/L Creatinine (0.66-1.25) mg/dL Plasma Lactic Acid [place] 2.7 H* 3.1 H* 2.3 H* (0.7-2.0) mmol/L Calcium (8.4-10.2) mg/dL Total Bilirubin (0.2-1.3) mg/dL AST (17-59) U/L Alkaline Phosphatase (38-126) U/L Total Protein (6.3-8.2) g/dL Albumin (3.5-5.0) g/dL 03/08/19 03/08/19 Range/Units 02:51 02:51 RBC 2.60 L (4.30-5.90) m/uL Hgb 7.8 L D (13.0-17.5) gm/dL Hct 24.5 L (39.0-53.0) % RDW 19.2 H (11.5-15.5) % Plt Count 92 L (150-450) k/uL Lymphocytes # 0.5 L (1.0-4.8) k/uL Sodium 131 L (137-145) mmol/L Potassium 3.4 L (3.5-5.1) mmol/L Carbon Dioxide 20 L (22-30) mmol/L Creatinine 0.51 L (0.66-1.25) mg/dL Plasma Lactic Acid [place] (0.7-2.0) mmol/L Calcium 7.3 L (8.4-10.2) mg/dL Total Bilirubin 2.7 H (0.2-1.3) mg/dL AST 69 H (17-59) U/L Alkaline Phosphatase 173 H (38-126) U/L Total Protein 5.4 L (6.3-8.2) g/dL Albumin 1.5 L (3.5-5.0) g/dL Microbiology - Last 24 Hours (Table) 03/07/19 09:18 Blood Culture Gram Stain - Preliminary Blood Blood Culture - Preliminary Coagulase Negative Staph 03/07/19 09:18 Blood Culture - Final Blood 03/07/19 14:14 Gram Stain - Preliminary Foot - Right Wound Culture - Preliminary Laboratory Results WBC 7.6 k/uL (3.8-10.6) 03/08/19 02:51 RBC 2.60 m/uL (4.30-5.90) L 03/08/19 02:51 Hgb 7.8 gm/dL (13.0-17.5) L D 03/08/19 02:51 Hct 24.5 % (39.0-53.0) L 03/08/19 02:51 MCV 94.1 fL (80.0-100.0) 03/08/19 02:51 MCH 29.9 pg (25.0-35.0) 03/08/19 02:51 MCHC 31.8 g/dL (31.0-37.0) 03/08/19 02:51 RDW 19.2 % (11.5-15.5) H 03/08/19 02:51 Plt Count 92 k/uL (150-450) L 03/08/19 02:51 Neutrophils % 82 % 03/08/19 02:51 Lymphocytes % 6 % 03/08/19 02:51 Monocytes % 10 % 03/08/19 02:51 Eosinophils % 1 % 03/08/19 02:51 Basophils % 0 % 03/08/19 02:51 Neutrophils # 6.2 k/uL (1.3-7.7) 03/08/19 02:51 Lymphocytes # 0.5 k/uL (1.0-4.8) L 03/08/19 02:51 Monocytes # 0.7 k/uL (0-1.0) 03/08/19 02:51 Eosinophils # 0.1 k/uL (0-0.7) 03/08/19 02:51 Basophils # 0.0 k/uL (0-0.2) 03/08/19 02:51 Manual Slide Review Performed 03/08/19 02:51 Hypochromasia Marked 03/08/19 02:51 Poikilocytosis Slight 03/08/19 02:51 Anisocytosis Slight 03/08/19 02:51 Anisocytosis (manual) Present 03/08/19 02:51 Macrocytosis Slight 03/08/19 02:51 Ovalocytes Present 03/08/19 02:51 PT 19.9 sec (9.0-12.0) H 03/07/19 09:18 INR 2.0 (<1.2) H 03/07/19 09:18 APTT 43.4 sec (22.0-30.0) H 03/07/19 09:18 Sodium 131 mmol/L (137-145) L 03/08/19 02:51 Potassium 3.4 mmol/L (3.5-5.1) L 03/08/19 02:51 Chloride 106 mmol/L (98-107) 03/08/19 02:51 Carbon Dioxide 20 mmol/L (22-30) L 03/08/19 02:51 Anion Gap 5 mmol/L 03/08/19 02:51 BUN 16 mg/dL (9-20) 03/08/19 02:51 Creatinine 0.51 mg/dL (0.66-1.25) L 03/08/19 02:51 Est GFR (CKD-EPI)AfAm >90 (>60 ml/min/1.73 sqM) 03/08/19 02:51 Est GFR (CKD-EPI)NonAf >90 (>60 ml/min/1.73 sqM) 03/08/19 02:51 Glucose 74 mg/dL (74-99) 03/08/19 02:51 Lactic Ac Sepsis Rflx Y 03/07/19 23:20 Plasma Lactic Acid Milton 1.8 mmol/L (0.7-2.0) 03/08/19 02:51 Calcium 7.3 mg/dL (8.4-10.2) L 03/08/19 02:51 Magnesium 1.8 mg/dL (1.6-2.3) 03/08/19 02:51 Total Bilirubin 2.7 mg/dL (0.2-1.3) H 03/08/19 02:51 AST 69 U/L (17-59) H 03/08/19 02:51 ALT 42 U/L (21-72) 03/08/19 02:51 Alkaline Phosphatase 173 U/L (38-126) H 03/08/19 02:51 Total Protein 5.4 g/dL (6.3-8.2) L 03/08/19 02:51 Albumin 1.5 g/dL (3.5-5.0) L 03/08/19 02:51 Microbiology 03/07/19 09:18 Blood Blood Culture Gram Stain - Preliminary 03/07/19 09:18 Blood Blood Culture - Preliminary Coagulase Negative Staph 03/07/19 09:18 Blood Blood Culture - Final 03/07/19 14:14 Foot - Right Gram Stain - Preliminary 03/07/19 14:14 Foot - Right Wound Culture - Preliminary Assessment and Plan (1) Atherosclerosis of both lower extremities with bilateral ulceration Narrative/Plan: 63-year-old male who has multiple medical troubles presents as with increasing weakness and ongoing difficulties with bilateral lower extremity ulcerations. His been seen by vascular surgery, but no plans for any interventions at this time. The patient himself at this time is not a good historian so they would like to have some input from the family as to what her plans are regarding a second opinion for his lower extremities. If there are no plans for interventions at this facility and then facilitate transfer to a tertiary center for further evaluations given the severity of the ulcerations of right lower extremity. I'm concerned that the ulcerations are resulting in an underlying sepsis which is worsening his mental status resulting is currently level of illness. Antibiotic therapy this point in time is with vancomycin and Zosyn which based on recent cultures seems to be a reasonable choice. We do have cultures in process which may further help direct changes. Local wound care as been requested with opticell which can be applied to the open ulcerations and utilize ABD pads as well as rolled gauze for securing them into place. Daily and when necessary change can be utilized. The prognosis is poor. Current Visit: Yes Status: Acute Code(s): I70.239 - ATHSCL ELY SHOSHONE ARTERIES OF RIGHT LEG W ULCER OF UNSP SITE; I70.249 - ATHSCL ELY SHOSHONE ARTERIES OF LEFT LEG W ULCERATION OF UNSP SITE SNOMED Code(s): 69153466 (2) Alcoholic liver disease Current Visit: No Status: Acute Code(s): K70.9 - ALCOHOLIC LIVER DISEASE, UNSPECIFIED SNOMED Code(s): 55231513 (3) Gram-positive cocci bacteremia Current Visit: Yes Status: Acute Code(s): R78.81 - BACTEREMIA SNOMED Code(s): 651975848692
[2019-03-08] MEDS: IPRATROPIUM-ALBUTEROL 3 ML NEB INHALATION SCH ×2 (15:51→20:07)
--- NOTE | 2019-03-08 15:57 | XR ---
EXAMINATION TYPE: XR chest 1V portable DATE OF EXAM: 03/08/2019 CLINICAL HISTORY: Difficulty breathing progress study. TECHNIQUE: Single AP portable upright view of the chest is obtained. COMPARISON: Chest x-ray from one day earlier FINDINGS: Background chronic emphysematous and parenchymal changes without suspicious focal airspace opacity, pleural effusion, or pneumothorax seen bilaterally. Cardiac silhouette size remains within normal limits. Osseous structures are intact. IMPRESSION: Overall stable findings, chronic changes without new acute pulmonary process
--- NOTE | 2019-03-08 16:00 | XR ---
EXAMINATION TYPE: XR Hip RT and AP Pelvis DATE OF EXAM: 03/08/2019 COMPARISON: Right hip x-ray February 14, 2019 HISTORY: Pain after fall injury. TECHNIQUE: A single AP view of the pelvis is obtained. Two views of the right hip are obtained. FINDINGS: Osseous structures are demineralized. Exam suboptimal due to demineralization and portable technique. Extensive metallic hardware right proximal femur through healed intertrochanteric fracture is redemon strated. Marked joint space narrowing and chronic deformity redemonstrated. No acute displaced fractu re clearly identified on this study. Pubic symphysis is intact. Moderate narrowing left hip joint inc identally noted.. IMPRESSION: As above .
[2019-03-08] MEDS ORDERED: Potassium Replacement Protocol 1 EACH MISC MISCELLANE PRN (18:05)
[2019-03-08] MEDS ORDERED: Magnesium Replacement Protocol 1 EACH MISC MISCELLANE PRN (18:05)
--- NOTE | 2019-03-08 21:08 | PN ---
PROGRESS NOTE DATE OF SERVICE: 03/08/2019. This 63-year-old gentleman who was admitted with weakness and bilateral leg cellulitis, right more the left, also had significant ecchymosis on the right hip. Also the patient being closely monitored. Patient continues to be mildly confused. The patient had possible CHF. The patient also underwent hip and pelvis x-ray showed PAST MEDICAL HISTORY: Past medical history reviewed. REVIEW OF SYMPTOMS: Review of systems could not be taken, the patient is mildly confused. CURRENT MEDICATIONS: Reviewed and include: 1. [place] 5 mg q.4h. 2. DuoNeb q.i.d. and p.r.n. 3. Xanax 2.5 mg t.i.d. 4. Eliquis 5 mg p.o. b.i.d. 5. Replacement protocols. 6. Vancomycin. 7. Multivitamins. 8. Narcan. 9. Protonix. 10.Zosyn IV. 11.Restoril. 12.Doses reviewed. PHYSICAL EXAM: Patient is alert, oriented x2. Pulse 89. Blood pressure 110/86. Respiration 18, temperature 97.6, pulse ox 94% on 2 L. HEENT conjunctivae are normal. Oral mucosa moist. NECK is no jugular venous distention. No carotid bruit. No lymph node enlargement. Cardiovascular systems: S1, S2 muffled. Respirations: Breath sounds diminished in the bases. Bilateral scattered rhonchi and crackles. ABDOMEN: Soft, nontender. No mass palpable. LEGS: Status post right hip injury, ecchymosis, right leg ulcer, left leg ulcer, cellulitis present. NERVOUS SYSTEM: Mild diffuse weakness. LAB STUDIES: WBC 7.2, hemoglobin 7.8, platelets 92. Sodium 139, potassium 3.4. Total bilirubin is 2.7 and albumin is 1.5. Lactic acid is elevated. ASSESSMENT: 1. Bilateral leg cellulitis, right more the left with failure of outpatient treatment with severe pain. 2. Anemia, normocytic anemia of chronic disease. 3. Change in mental status, metabolic encephalopathy secondary to sepsis. 4. Hyponatremia. 5. Hypokalemia. 6. Possible cirrhosis of the liver. 7. Elevated AST, bilirubin, possibly hepatitis alcohol-related. 8. Elevated lactic acid. 9. Chronic obstructive pulmonary disease. 10.Gastroesophageal reflux disease. 11.History of pneumonia. 12.History of gastrointestinal bleed with peptic ulcer disease. 13.History of multiple transfusions. 14.History of hyperammonemia. 15.Chronic liver disease. 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 17.FULL CODE. RECOMMENDATIONS AND DISCUSSION: Recommend to continue current medications, monitoring, management and symptomatic treatment. Continue the broad-spectrum IV antibiotics, supplement potassium, repeat labs. Follow the cultures. Continue to monitor with multiple consultants. Prognosis guarded. Further recommendations to follow. See orders for details. We will follow with vascular surgery and as well as Infectious Disease. Further recommendations to follow. MMODL / IJN: [id number] / MTDD
[2019-03-09] MEDS: PANTOPRAZOLE 40 MG TABLET PO SCH ×3 (05:58→16:11)
[2019-03-09] MEDS ORDERED: VANCOMYCIN TROUGH DUE 1 EACH MISC MISCELLANE ONE (08:00)
[2019-03-09] MEDS: IPRATROPIUM-ALBUTEROL 3 ML NEB INHALATION SCH ×4 (08:33→19:14)
[2019-03-09] MEDS: APIXABAN 5 MG TAB PO SCH ×2 (08:46→21:22)
[2019-03-09] MEDS: MULTIVITAMINS, THERA 1 EACH TAB PO SCH (08:46)
[2019-03-09] MEDS: PIPERACILLIN-TAZOBACTAM 3.375 GM in SODIUM CHLORIDE 0.9% 100 ML IVPB SCH ×2 (08:46→17:49)
[2019-03-09 09:18] LABS: ALT 45 U/L (21-72); AST 77 U/L (17-59); African American GFR (CKD) >90 (>60 ml/min/1.73 sqM); Albumin 1.5 g/dL (3.5-5.0); Alkaline Phosphatase 159 U/L (38-126); Anion Gap 5 mmol/L; Blood Urea Nitrogen 15 mg/dL (9-20); Calcium 7.4 mg/dL (8.4-10.2); Carbon Dioxide 21 mmol/L (22-30); Chloride 109 mmol/L (98-107); Glucose 79 mg/dL (74-99); Magnesium 1.8 mg/dL (1.6-2.3); Non-African American GFR(CKD) >90 (>60 ml/min/1.73 sqM); Potassium 3.4 mmol/L (3.5-5.1); Sodium 135 mmol/L (137-145); Total Bilirubin 2.7 mg/dL (0.2-1.3); Total Protein 5.6 g/dL (6.3-8.2)
[2019-03-09 09:49] LABS: Anisocytosis Slight; HCT 24.2 % (39.0-53.0); HGB 7.6 gm/dL (13.0-17.5); Hypochromasia Marked; MCH 30.5 pg (25.0-35.0); MCHC 31.5 g/dL (31.0-37.0); MCV 96.7 fL (80.0-100.0); Macrocytosis Slight; Mean Platelet Volume 6.9; RDW 19.3 % (11.5-15.5); WBC 4.5 k/uL (3.8-10.6)
[2019-03-09 09:53] LABS: Platelet Count 77 k/uL (150-450)
[2019-03-09] MEDS: VANCOMYCIN 1,500 MG in SODIUM CHLORIDE 0.9% 250 ML IVPB SCH (10:14)
[2019-03-09 11:24] LABS: Band Neutrophils % 1 %; Eosinophils # (M) 0.09 k/uL (0-0.7); Lymphocytes # (M) 0.09 k/uL (1.0-4.8); Monocytes # (M) 0.18 k/uL (0-1.0); Neutrophils % (M) 91 %; Nucleated Red Blood Cells 0 /100 WBC (0-0); Total Cells Counted 100
[2019-03-09] MEDS: VANCOMYCIN 1,250 MG in SODIUM CHLORIDE 0.9% 250 ML IVPB SCH ×2 (12:33→22:44)
[2019-03-09] MEDS: MAGNESIUM SULFATE-D5W PMX 1 GM in DEXTROSE/WATER 1 100ML.BAG IVPB SCH ×2 (15:32→17:02)
[2019-03-09] MEDS: POTASSIUM CHLORIDE ER 20 MEQ TAB.ER PO SCH ×2 (15:39→16:12)
--- NOTE | 2019-03-09 22:41 | PN ---
PROGRESS NOTE DATE OF SERVICE: 03/09/2019 This 63-year-old gentleman admitted with bilateral leg cellulitis with possible sepsis is being closely monitored. Patient also had change in mental status. The patient is able to wake up and take his normal diet according to the staff, the patient is on broad-spectrum IV antibiotics. Presumptive Staph aureus coags negative Staph was grown from the wound and coagulase-negative Staph was grown from the blood. The patient is on IV vancomycin. PAST MEDICAL HISTORY: Past medical history reviewed. REVIEW OF SYMPTOMS: Review of systems could not be taken, the patient is confused at this time. CURRENT MEDICATIONS ARE: Reviewed and include: 1. [place] 5 mg. 2. DuoNeb q.i.d. and p.r.n. 3. Xanax 0.5 t.i.d. 4. Eliquis 5 mg p.o. b.i.d. 5. Replacement protocol. 6. Narcan. 7. Protonix. 8. Zosyn. PHYSICAL EXAM: Patient is alert, oriented x3. Pulse is 99. Blood pressure 116/57, respiration 20, temperature 98.2, pulse ox 94% on 2 L. HEENT: Conjunctivae normal. NECK: No jugular venous distention. CARDIOVASCULAR: S1, S2 muffled. RESPIRATORY: Breath sounds diminished in the bases. Bilateral scattered rhonchi and crackles. ABDOMEN: Soft, nontender. No mass palpable. LEGS: Bilateral significant cellulitis, right more the left. NERVOUS SYSTEM: No focal deficits. LABS: WBC 4.3, hemoglobin 11.6, sodium 130, potassium 3.4. ASSESSMENT: 1. Bilateral leg cellulitis, right more than the left with failure of outpatient treatment, severe pain with possible sepsis. 2. Anemia, normocytic anemia of chronic disease. 3. Change in mental status, metabolic encephalopathy secondary to sepsis. 4. Hyponatremia. 5. Hypokalemia. 6. Possible cirrhosis of the liver. 7. Elevated AST, bilirubin, possibly hepatitis, alcohol related. 8. Elevated lactic acid. 9. Chronic obstructive pulmonary disease. 10.Gastroesophageal reflux disease. 11.History of pneumonia. 12.History of gastrointestinal bleed and peptic ulcer disease. 13.History of multiple transfusions. 14.History of hyperammonemia. 15.History of chronic liver disease. 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 17.FULL CODE. RECOMMENDATIONS AND DISCUSSION: Recommend to continue current medications, continue to monitor, symptomatic treatment. Otherwise, at this time, I recommend continue with antibiotics and await the final report of the ID. Potassium 3.4. I recommend correction lactic acid normalized. Continue the rest of medications. Prognosis extremely guarded. Closely follow with vascular surgery and Infectious Disease. Guarded prognosis. Further recommendations to follow. MMODL / IJN: [id number] /
[2019-03-10] MEDS: PIPERACILLIN-TAZOBACTAM 3.375 GM in SODIUM CHLORIDE 0.9% 100 ML IVPB SCH ×2 (01:03→08:48)
[2019-03-10 06:05] LABS: Anisocytosis Moderate; HCT 24.6 % (39.0-53.0); HGB 7.5 gm/dL (13.0-17.5); Hypochromasia Marked; MCH 29.4 pg (25.0-35.0); MCHC 30.4 g/dL (31.0-37.0); MCV 96.6 fL (80.0-100.0); Macrocytosis Slight; Mean Platelet Volume 8.1; RBC 2.54 m/uL (4.30-5.90); RDW 20.1 % (11.5-15.5); WBC 3.9 k/uL (3.8-10.6)
[2019-03-10 06:09] LABS: Platelet Count 84 k/uL (150-450)
[2019-03-10] MEDS: PANTOPRAZOLE 40 MG TABLET PO SCH ×2 (06:18→17:07)
[2019-03-10 06:21] LABS: ALT 43 U/L (21-72); AST 88 U/L (17-59); African American GFR (CKD) >90 (>60 ml/min/1.73 sqM); Albumin 1.5 g/dL (3.5-5.0); Alkaline Phosphatase 178 U/L (38-126); Anion Gap 5 mmol/L; Blood Urea Nitrogen 14 mg/dL (9-20); Calcium 7.3 mg/dL (8.4-10.2); Carbon Dioxide 20 mmol/L (22-30); Chloride 108 mmol/L (98-107); Glucose 90 mg/dL (74-99); Non-African American GFR(CKD) >90 (>60 ml/min/1.73 sqM); Sodium 133 mmol/L (137-145); Total Bilirubin 2.6 mg/dL (0.2-1.3); Total Protein 5.6 g/dL (6.3-8.2)
[2019-03-10 06:23] LABS: Potassium 3.8 mmol/L (3.5-5.1)
[2019-03-10 06:35] LABS: Band Neutrophils % 5 %; Eosinophils # (M) 0.16 k/uL (0-0.7); Lymphocytes # (M) 0.23 k/uL (1.0-4.8); Monocytes # (M) 0.35 k/uL (0-1.0); Neutrophils % (M) 76 %; Nucleated Red Blood Cells 0 /100 WBC (0-0); Total Cells Counted 100
[2019-03-10 06:36] LABS: Anisocytosis (M) Present
[2019-03-10 06:43] LABS: Ovalocytes Present
[2019-03-10] MEDS: IPRATROPIUM-ALBUTEROL 3 ML NEB INHALATION SCH ×4 (07:23→20:00)
[2019-03-10] MEDS: APIXABAN 5 MG TAB PO SCH ×2 (10:35→20:10)
[2019-03-10] MEDS: MULTIVITAMINS, THERA 1 EACH TAB PO SCH (10:35)
--- NOTE | 2019-03-10 12:04 | P.PN ---
Subjective Patient resting in bed lethargic. Able to respond to simple questions. Appears confused Objective - Vital Signs Vital signs: Vital Signs Temp 98.1 F 03/10/19 08:30 Pulse 103 H 03/10/19 08:30 Resp 20 03/10/19 08:30 BP 109/53 03/10/19 08:30 Pulse Ox 91 L 03/10/19 08:30 Intake & Output 03/09/19 03/10/19 03/10/19 18:59 06:59 18:59 Intake Total 100 25 Balance 100 25 Weight 83.5 kg Intake: Intake, IV Titration 100 Amount Piperacillin-Tazobactam 3 100 .375 gm In Sodium Chloride 0.9% 100 ml @ 25 mls/hr IVPB Q8HR [facility] Rx# :[id number] Oral 25 Other: Voiding Method Diaper Diaper Diaper # Voids 2 2 - Constitutional General appearance: Present: mild distress - EENT Eyes: Present: PERRLA Ears: bilateral: normal - Neck Neck: Present: normal ROM - Respiratory Respiratory: bilateral: rhonchi - Cardiovascular Rhythm: regular - Gastrointestinal General gastrointestinal: Present: soft - Integumentary Integumentary Comment(s): Dressings to lower extremities - Musculoskeletal Musculoskeletal: Present: generalized weakness - Psychiatric Psychiatric Comment(s): Patient lethargic able to answer only simple questions - Labs CBC & Chem 7: 03/10/19 05:32 03/10/19 05:32 Labs: Abnormal Lab Results - Last 24 Hours (Table) 03/10/19 03/10/19 Range/Units 05:32 05:32 RBC 2.54 L (4.30-5.90) m/uL Hgb 7.5 L (13.0-17.5) gm/dL Hct 24.6 L (39.0-53.0) % MCHC 30.4 L (31.0-37.0) g/dL RDW 20.1 H (11.5-15.5) % Plt Count 84 L (150-450) k/uL Lymphocytes # (Manual) 0.23 L (1.0-4.8) k/uL Sodium 133 L (137-145) mmol/L Chloride 108 H (98-107) mmol/L Carbon Dioxide 20 L (22-30) mmol/L Creatinine 0.63 L (0.66-1.25) mg/dL Calcium 7.3 L (8.4-10.2) mg/dL Total Bilirubin 2.6 H (0.2-1.3) mg/dL AST 88 H (17-59) U/L Alkaline Phosphatase 178 H (38-126) U/L Total Protein 5.6 L (6.3-8.2) g/dL Albumin 1.5 L (3.5-5.0) g/dL Microbiology - Last 24 Hours (Table) 03/07/19 09:18 Blood Culture Gram Stain - Final Blood Blood Culture - Final Staphylococcus epidermidis 03/07/19 14:14 Gram Stain - Final Foot - Right Wound Culture - Final Presumptive Staph aureus - Imaging and Cardiology Chest x-ray: report reviewed Assessment and Plan Plan: Assessment Bilateral leg cellulitis pain with sepsis gram-positive cocci Anemia chronic disease Mental status changes metabolic encephalopathy secondary to sepsis Hyponatremia Hypokalemia Liver cirrhosis alcohol-related Elevated lactic acid Chronic COPD GERD Plan Continue consultation with vascular surgeon infectious disease Guarded prognosis Continues on Zosyn and vancomycin
[2019-03-10] MEDS: SODIUM CHLORIDE 0.9% 1,000 ML IV SCH (12:54)
[2019-03-10] MEDS: VANCOMYCIN 1,250 MG in SODIUM CHLORIDE 0.9% 250 ML IVPB SCH (12:55)
--- NOTE | 2019-03-10 21:36 | P.PN ---
Subjective Progress Note Date: 03/10/19 63-year-old male with history of alcoholism, COPD, gastrointestinal bleeding, cirrhosis of the liver with chronic liver disease is found the outpatient setting by Dr. Trevino. His had multiple hospitalizations here [facility] and now presents from home with increasing weakness, worsening of his bilateral looks to me ulcerations. Is related that he has a history of severe peripheral vascular disease with multiple ulcerations to his lower extremities. Is related that he had been evaluated at this facility but wanted a second opinion before he proceeded to any further surgical interventions which includes offered amputation to the right lower extremity. At this time it is not clear that any of this further evaluations has occurred now presents back to Hospital acutely ill week unable to walk. He is also a very poor historian and is lethargic. Upon direct questioning he does complain of pain to his legs. 03/10/2019 patient seems reviewing slightly better. Seems to have some ongoing pain no but is more alert and interactive. Pressure staff relates that there is no sticky new drainage and is being noted at this time. He does have difficulties with urinary incontinence the skin breakdown on the buttocks and consequently Lim catheter has been placed. There also was difficulties noted with some worsening thrombocytopenia and when this was related antibiotic therapy was changed to Rocephin. Objective - Vital Signs Vital signs: Vital Signs Temp 98.1 F 03/10/19 15:39 Pulse 96 03/10/19 20:11 Resp 20 03/10/19 16:00 BP 122/72 03/10/19 15:39 Pulse Ox 94 L 03/10/19 15:39 Intake & Output 03/10/19 03/10/19 03/11/19 06:59 18:59 06:59 Intake Total 100 1311 Output Total 450 Balance 100 861 Weight 83.5 kg Intake: IV 800 Piperacillin-Tazobactam 3 100 .375 gm In Sodium Chloride 0.9% 100 ml @ 25 mls/hr IVPB Q8HR [facility] Rx# :[id number] Sodium Chloride 0.9% 1, 400 000 ml @ 100 mls/hr IV . Q10H [facility] Rx#:[id number] Vancomycin 1,250 mg In 250 Sodium Chloride 0.9% 250 ml @ 125 mls/hr IVPB Q12H [facility] Rx#:[id number] cefTRIAXone 2 gm In 50 Sodium Chloride 0.9% 50 ml @ 100 mls/hr IVPB Q24HR [facility] Rx#:[id number] Intake, IV Titration 100 Amount Piperacillin-Tazobactam 3 100 .375 gm In Sodium Chloride 0.9% 100 ml @ 25 mls/hr IVPB Q8HR [facility] Rx# :[id number] Oral 511 Output: Urine 450 Other: Voiding Method Diaper Diaper # Voids 2 # Bowel Movements 1 - Exam 63-year-old male who appears older than his stated age, arousable but poor historian. Seems to be somewhat uncomfortable. HEENT: Anicteric conjunctiva are pink and moist nasal mucosa grossly intact without significant lesions, there is no thrush. Dentures are noted, is evidence of mild epistaxis to the left nare Neck: The neck is supple without significant lymphadenopathy or thyromegaly. Lungs: Symmetrical air entry with evidence of expiratory wheezing few crackles at the bases Heart: Regular positive S4 no stimulant murmur click or rub Abdomen: Positive bowel sounds soft and nontender without palpable masses or organomegaly. There was no guarding or rebound. Extremities: Upper extremities without significant lesions, the lower extremities revealed evidence of the marked abnormality is. The right leg is much worse in the left. Both limbs has is of chronic edema, chronic skin discoloration, chronic ulcerations lateral as well as medial over the malleoli is under the foot. He has significant discoloration to the right hip. There appears to be deep tissue injury, there is notation of falls. There is also notation of that ORIF site to the right hip of an undetermined age. Neuro: Arousable poor historian Skin reveals evidence of the excoriation and denuded skin to the buttocks that was present on admission - Labs CBC & Chem 7: 03/10/19 05:32 03/10/19 05:32 Labs: Abnormal Lab Results - Last 24 Hours (Table) 03/10/19 03/10/19 03/10/19 Range/Units 05:32 05:32 11:58 RBC 2.54 L (4.30-5.90) m/uL Hgb 7.5 L (13.0-17.5) gm/dL Hct 24.6 L (39.0-53.0) % MCHC 30.4 L (31.0-37.0) g/dL RDW 20.1 H (11.5-15.5) % Plt Count 84 L (150-450) k/uL Lymphocytes # (Manual) 0.23 L (1.0-4.8) k/uL Sodium 133 L (137-145) mmol/L Chloride 108 H (98-107) mmol/L Carbon Dioxide 20 L (22-30) mmol/L Creatinine 0.63 L (0.66-1.25) mg/dL Plasma Lactic Acid Milton 3.0 H* (0.7-2.0) mmol/L Calcium 7.3 L (8.4-10.2) mg/dL Total Bilirubin 2.6 H (0.2-1.3) mg/dL AST 88 H (17-59) U/L Alkaline Phosphatase 178 H (38-126) U/L Total Protein 5.6 L (6.3-8.2) g/dL Albumin 1.5 L (3.5-5.0) g/dL 03/10/19 03/10/19 Range/Units 15:53 20:47 RBC (4.30-5.90) m/uL Hgb (13.0-17.5) gm/dL Hct (39.0-53.0) % MCHC (31.0-37.0) g/dL RDW (11.5-15.5) % Plt Count (150-450) k/uL Lymphocytes # (Manual) (1.0-4.8) k/uL Sodium (137-145) mmol/L Chloride (98-107) mmol/L Carbon Dioxide (22-30) mmol/L Creatinine (0.66-1.25) mg/dL Plasma Lactic Acid Milton 3.5 H* 4.0 H* (0.7-2.0) mmol/L Calcium (8.4-10.2) mg/dL Total Bilirubin (0.2-1.3) mg/dL AST (17-59) U/L Alkaline Phosphatase (38-126) U/L Total Protein (6.3-8.2) g/dL Albumin (3.5-5.0) g/dL Microbiology - Last 24 Hours (Table) 03/07/19 09:18 Blood Culture Gram Stain - Final Blood Blood Culture - Final Staphylococcus epidermidis Laboratory Results WBC 3.9 k/uL (3.8-10.6) 03/10/19 05:32 RBC 2.54 m/uL (4.30-5.90) L 03/10/19 05:32 Hgb 7.5 gm/dL (13.0-17.5) L 03/10/19 05:32 Hct 24.6 % (39.0-53.0) L 03/10/19 05:32 MCV 96.6 fL (80.0-100.0) 03/10/19 05:32 MCH 29.4 pg (25.0-35.0) 03/10/19 05:32 MCHC 30.4 g/dL (31.0-37.0) L 03/10/19 05:32 RDW 20.1 % (11.5-15.5) H 03/10/19 05:32 Plt Count 84 k/uL (150-450) L 03/10/19 05:32 Neutrophils % 82 % 03/08/19 02:51 Neutrophils % (Manual) 76 % 03/10/19 05:32 Band Neutrophils % 5 % 03/10/19 05:32 Lymphocytes % 6 % 03/08/19 02:51 Lymphocytes % (Manual) 6 % 03/10/19 05:32 Monocytes % 10 % 03/08/19 02:51 Monocytes % (Manual) 9 % 03/10/19 05:32 Eosinophils % 1 % 03/08/19 02:51 Eosinophils % (Manual) 4 % 03/10/19 05:32 Basophils % 0 % 03/08/19 02:51 Neutrophils # 6.2 k/uL (1.3-7.7) 03/08/19 02:51 Neutrophils # (Manual) 3.10 k/uL (1.3-7.7) 03/10/19 05:32 Lymphocytes # 0.5 k/uL (1.0-4.8) L 03/08/19 02:51 Lymphocytes # (Manual) 0.23 k/uL (1.0-4.8) L 03/10/19 05:32 Monocytes # 0.7 k/uL (0-1.0) 03/08/19 02:51 Monocytes # (Manual) 0.35 k/uL (0-1.0) 03/10/19 05:32 Eosinophils # 0.1 k/uL (0-0.7) 03/08/19 02:51 Eosinophils # (Manual) 0.16 k/uL (0-0.7) 03/10/19 05:32 Basophils # 0.0 k/uL (0-0.2) 03/08/19 02:51 Nucleated RBCs 0 /100 WBC (0-0) 03/10/19 05:32 Manual Slide Review Performed 03/10/19 05:32 Hypochromasia Marked 03/10/19 05:32 Poikilocytosis Slight 03/08/19 02:51 Anisocytosis Moderate 03/10/19 05:32 Anisocytosis (manual) Present 03/10/19 05:32 Macrocytosis Slight 03/10/19 05:32 Ovalocytes Present 03/10/19 05:32 PT 19.9 sec (9.0-12.0) H 03/07/19 09:18 INR 2.0 (<1.2) H 03/07/19 09:18 APTT 43.4 sec (22.0-30.0) H 03/07/19 09:18 Sodium 133 mmol/L (137-145) L 03/10/19 05:32 Potassium 3.8 mmol/L (3.5-5.1) 03/10/19 05:32 Chloride 108 mmol/L (98-107) H 03/10/19 05:32 Carbon Dioxide 20 mmol/L (22-30) L 03/10/19 05:32 Anion Gap 5 mmol/L 03/10/19 05:32 BUN 14 mg/dL (9-20) 03/10/19 05:32 Creatinine 0.63 mg/dL (0.66-1.25) L 03/10/19 05:32 Est GFR (CKD-EPI)AfAm >90 (>60 ml/min/1.73 sqM) 03/10/19 05:32 Est GFR (CKD-EPI)NonAf >90 (>60 ml/min/1.73 sqM) 03/10/19 05:32 Glucose 90 mg/dL (74-99) 03/10/19 05:32 Lactic Ac Sepsis Rflx Y 03/10/19 16:19 Plasma Lactic Acid Milton 4.0 mmol/L (0.7-2.0) H* 03/10/19 20:47 Calcium 7.3 mg/dL (8.4-10.2) L 03/10/19 05:32 Magnesium 2.0 mg/dL (1.6-2.3) 03/10/19 05:32 Total Bilirubin 2.6 mg/dL (0.2-1.3) H 03/10/19 05:32 AST 88 U/L (17-59) H 03/10/19 05:32 ALT 43 U/L (21-72) 03/10/19 05:32 Alkaline Phosphatase 178 U/L (38-126) H 03/10/19 05:32 Total Protein 5.6 g/dL (6.3-8.2) L 03/10/19 05:32 Albumin 1.5 g/dL (3.5-5.0) L 03/10/19 05:32 Vancomycin Trough 19.3 ug/mL 03/09/19 08:47 Microbiology 03/07/19 09:18 Blood Blood Culture Gram Stain - Final 03/07/19 09:18 Blood Blood Culture - Final Staphylococcus epidermidis 03/07/19 14:14 Foot - Right Gram Stain - Final 03/07/19 14:14 Foot - Right Wound Culture - Final Presumptive Staph aureus 03/07/19 09:18 Blood Blood Culture - Final Assessment and Plan (1) Atherosclerosis of both lower extremities with bilateral ulceration Narrative/Plan: 63-year-old male who has multiple medical troubles presents as with increasing weakness and ongoing difficulties with bilateral lower extremity ulcerations. His been seen by vascular surgery, but no plans for any interventions at this time. The patient himself at this time is not a good historian so they would like to have some input from the family as to what her plans are regarding a second opinion for his lower extremities. If there are no plans for interventions at this facility and then facilitate transfer to a tertiary center for further evaluations given the severity of the ulcerations of right lower extremity. I'm concerned that the ulcerations are resulting in an underlying sepsis which is worsening his mental status resulting is currently level of illness. Antibiotic therapy this point in time is with vancomycin and Zosyn which based on recent cultures seems to be a reasonable choice. We do have cultures in process which may further help direct changes. Local wound care as been requested with opticell which can be applied to the open ulcerations and utilize ABD pads as well as rolled gauze for securing them into place. Daily and when necessary change can be utilized. The prognosis is poor. 03/10/2019 the patient had evidence of worsening thrombocytopenia and with the blood culture showing coag negative staph, this appears to be a contamination in counseling vancomycin therapy may be discontinued. Most of the lower ex tremities show evidence of staph aureus and consequently the Zosyn is transitioned to Rocephin which was to give us coverage for the MSSA as well as to gram-negative social of concern. Lim catheters been placed in barrier creams or applied to the buttocks to try to improve the integrity of the skin. He is receiving diuresis which will also improve his overall status. Nursing is having no difficulty with the opticell to the [facility]. Current Visit: Yes Status: Acute Code(s): I70.239 - ATHSCL [place] ARTERIES OF RIGHT LEG W ULCER OF UNSP SITE; I70.249 - ATHSCL [place] ARTERIES OF LEFT LEG W ULCERATION OF UNSP SITE SNOMED Code(s): 69926500 (2) Alcoholic liver disease Current Visit: No Status: Acute Code(s): K70.9 - ALCOHOLIC LIVER DISEASE, UNSPECIFIED SNOMED Code(s): 16447306 (3) Gram-positive cocci bacteremia Current Visit: Yes Status: Acute Code(s): R78.81 - BACTEREMIA SNOMED Code(s): 467925689639
[2019-03-11] MEDS: HYDROcodone/APAP 5-325MG 1 EACH TAB PO PRN (05:37)
[2019-03-11] MEDS: PANTOPRAZOLE 40 MG TABLET PO SCH ×2 (05:38→18:00)
[2019-03-11] MEDS: SODIUM CHLORIDE 0.9% 1,000 ML IV SCH ×3 (05:38→21:18)
[2019-03-11] MEDS: IPRATROPIUM-ALBUTEROL 3 ML NEB INHALATION SCH ×4 (07:59→19:36)
[2019-03-11] MEDS: MULTIVITAMINS, THERA 1 EACH TAB PO SCH (08:41)
[2019-03-11] MEDS: APIXABAN 5 MG TAB PO SCH ×2 (08:42→20:42)
[2019-03-11] MEDS ORDERED: VANCOMYCIN TROUGH DUE 1 EACH MISC MISCELLANE ONE (11:00)
[2019-03-11 11:28] LABS: African American GFR (CKD) >90 (>60 ml/min/1.73 sqM); Anion Gap 5 mmol/L; Blood Urea Nitrogen 13 mg/dL (9-20); Calcium 7.2 mg/dL (8.4-10.2); Carbon Dioxide 19 mmol/L (22-30); Chloride 111 mmol/L (98-107); Glucose 175 mg/dL (74-99); Non-African American GFR(CKD) >90 (>60 ml/min/1.73 sqM); Potassium 3.5 mmol/L (3.5-5.1); Sodium 135 mmol/L (137-145)
--- NOTE | 2019-03-11 12:11 | P.PN ---
Subjective Lactic acid levels increasing. Discussed case with vascular surgeon Dr. Arevalo he wants clearance medically for possible amputation of foot. Patient more awake and talkative today. Stated again he may want to be transferred to [place] Objective - Vital Signs Vital signs: Vital Signs Temp 98.0 F 03/10/19 23:00 Pulse 84 03/11/19 11:51 Resp 16 03/11/19 11:51 BP 129/60 03/10/19 23:00 Pulse Ox 93 L 03/10/19 23:00 Intake & Output 03/10/19 03/11/19 03/11/19 18:59 06:59 18:59 Intake Total 1311 1200 222 Output Total 450 450 Balance 861 750 222 Weight 83.5 kg Intake: IV 800 1200 Piperacillin-Tazobactam 3 100 .375 gm In Sodium Chloride 0.9% 100 ml @ 25 mls/hr IVPB Q8HR [facility] Rx# :[id number] Sodium Chloride 0.9% 1, 400 1100 000 ml @ 100 mls/hr IV . Q10H [facility] Rx#:[id number] Vancomycin 1,250 mg In 250 Sodium Chloride 0.9% 250 ml @ 125 mls/hr IVPB Q12H [facility] Rx#:[id number] cefTRIAXone 2 gm In 50 100 Sodium Chloride 0.9% 50 ml @ 100 mls/hr IVPB Q24HR [facility] Rx#:[id number] Oral 511 222 Output: Urine 450 450 Other: Voiding Method Diaper Diaper # Bowel Movements 1 - Constitutional General appearance: Present: mild distress - EENT Eyes: Present: PERRLA Ears: bilateral: normal - Neck Neck: Present: normal ROM - Respiratory Details: Test neck Respiratory: bilateral: diminished - Cardiovascular Rhythm: regular Abnormal Heart Sounds: Present: systolic murmur - Gastrointestinal General gastrointestinal: Present: normal bowel sounds, soft - Integumentary Integumentary: Present: normal - Neurologic Neurologic: Present: CNII-XII intact - Musculoskeletal Musculoskeletal: Present: generalized weakness - Psychiatric Psychiatric Comment(s): Patient awake and alert answering appropriately - Labs CBC & Chem 7: 03/10/19 05:32 03/11/19 11:01 Labs: Abnormal Lab Results - Last 24 Hours (Table) 03/10/19 03/10/19 03/10/19 Range/Units 11:58 15:53 20:47 Sodium (137-145) mmol/L Chloride (98-107) mmol/L Carbon Dioxide (22-30) mmol/L Creatinine (0.66-1.25) mg/dL Glucose (74-99) mg/dL Plasma Lactic Acid Milton 3.0 H* 3.5 H* 4.0 H* (0.7-2.0) mmol/L Calcium (8.4-10.2) mg/dL 03/11/19 Range/Units 11:01 Sodium 135 L (137-145) mmol/L Chloride 111 H (98-107) mmol/L Carbon Dioxide 19 L (22-30) mmol/L Creatinine 0.60 L (0.66-1.25) mg/dL Glucose 175 H (74-99) mg/dL Plasma Lactic Acid Milton (0.7-2.0) mmol/L Calcium 7.2 L (8.4-10.2) mg/dL Assessment and Plan Plan: Assessment Bilateral leg cellulitis right foot deformed sepsis with gram-positive cocci Anemia chronic disease Metabolic encephalopathy secondary to sepsis Severe peripheral vascular disease Hyponatremia Hypokalemia Cirrhosis of liver Elevated lactic acid Chronic COPD History of GI bleed or peptic ulcer Plan Continues is full code Consult with vascular surgery infectious disease and cardiology for clearance
--- NOTE | 2019-03-11 12:23 | CONS ---
CONSULTATION Mr. Yoder is a 63-year-old male who was admitted to the hospital with worsening ulceration on the lower extremities. Cardiology consultation was requested for possible surgical intervention. The patient has a known history of chronic obstructive lung disease, chronic alcohol intake with cirrhosis of the liver with worsening like ulceration. He is awake but confused. The history is obtained from him or from the records. The patient is not always accurate. He was in the hospital earlier in February and underwent an echocardiogram at that time that revealed preserved left ventricular size and systolic function with mild to moderate aortic stenosis and mild mitral and tricuspid regurgitation with moderate pulmonary hypertension. Patient denies any chest pain. According to him, his breathing is stable. He denies any dizziness or palpitation. He denies any recent syncope. He has been evaluated by Dr. Arevalo for possible amputation. Patient is not very active physically. He uses the wheelchair. Has a nonhealing ulcer in the right heel with cellulitis. He has a prior history of alcohol and tobacco use. MEDICATION: At home included Eliquis 5 mg twice a day and sulfadine. REVIEW OF SYSTEMS: Limited but respiratory system, patient denies any change in his breathing. Denies any recent wheezing, cough. GI SYSTEM: He denies any GI bleeding. No peptic ulcer disease. SYSTEM: No dysuria or hematuria. NERVOUS SYSTEM: No history of stroke. PHYSICAL EXAMINATION: A 63-year-old male, alert, appears older than stated age. Confused at times. Blood pressure 129/60 with a heart rate in the low 100s. HEAD: Normocephalic. EYES: Sclerae nonicteric. NECK: Good upstroke, no bruit. LUNGS: With decreased air exchange, no wheezes. HEART: Regular rate and rhythm, S1, S2. No S3 with systolic ejection murmur, 2/6 heard at the base. No diastolic murmur, no rub. ABDOMEN: Soft, nontender, positive bowel sounds, no organomegaly. EXTREMITIES: Dressing noted on both lower extremities. LAB DATA: Revealed a hemoglobin of 7.5, white blood cell of 3.9, platelet count of 84,000. BUN and creatinine of 14 and 0.63, potassium 3.8. Sodium 133. His alkaline phosphatase is 178. His plasma lactic acid is 4. IMPRESSION: 1. Cellulitis of the lower extremities with nonhealing ulceration, being evaluated for possible amputation. 2. Mild to moderate aortic stenosis with no associated symptoms. 3. History of liver cirrhosis and alcoholism. 4. Prior history of smoking. 5. Anemia. RECOMMENDATION: From the cardiac standpoint, the patient has no overt signs of angina pectoris or congestive heart failure. His echocardiogram performed recently showed a preserved systolic function. I see no contraindication to amputation if clinically indicated. I will re-initiate treatment with the beta nidhi that he was on. I will obtain an EKG. Thank you for this consult. Will follow with you. FLAKITA / IJN: [id number] /
[2019-03-11] MEDS: METOPROLOL TARTRATE 25 MG TAB PO SCH ×2 (12:39→21:18)
[2019-03-11 12:48] LABS: Anisocytosis Slight; Basophils % (A) 0 %; Eosinophils # (A) 0.1 k/uL (0-0.7); Eosinophils % (A) 1 %; HCT 25.2 % (39.0-53.0); HGB 7.5 gm/dL (13.0-17.5); Hypochromasia Marked; Lymphocytes # (A) 0.6 k/uL (1.0-4.8); Lymphocytes % (A) 8 %; MCH 28.9 pg (25.0-35.0); MCHC 29.6 g/dL (31.0-37.0); MCV 97.8 fL (80.0-100.0); Macrocytosis Slight; Mean Platelet Volume 7.3; Monocytes # (A) 0.8 k/uL (0-1.0); Monocytes % (A) 11 %; Neutrophils # (A) 6.1 k/uL (1.3-7.7); Neutrophils % (A) 77 %; RBC 2.58 m/uL (4.30-5.90); RDW 19.4 % (11.5-15.5); WBC 7.8 k/uL (3.8-10.6)
[2019-03-11 12:54] LABS: Platelet Count 84 k/uL (150-450)
[2019-03-11 14:32] LABS: Poikilocytosis (M) Present
[2019-03-11 17:38] LABS: Glucose,Whole Blood 284 mg/dL (75-99)
[2019-03-12] MEDS: HYDROcodone/APAP 5-325MG 1 EACH TAB PO PRN ×2 (03:54→16:35)
[2019-03-12 06:16] LABS: Anisocytosis Slight; HCT 22.9 % (39.0-53.0); HGB 7.1 gm/dL (13.0-17.5); Hypochromasia Marked; MCH 30.4 pg (25.0-35.0); MCHC 31.1 g/dL (31.0-37.0); MCV 97.6 fL (80.0-100.0); Macrocytosis Slight; Mean Platelet Volume 7.3; Platelet Count 78 k/uL (150-450); Poikilocytosis Slight; RBC 2.35 m/uL (4.30-5.90); RDW 19.3 % (11.5-15.5); WBC 7.9 k/uL (3.8-10.6)
[2019-03-12] MEDS: SODIUM CHLORIDE 0.9% 1,000 ML IV SCH (06:20)
[2019-03-12 06:26] LABS: African American GFR (CKD) >90 (>60 ml/min/1.73 sqM); Anion Gap 3 mmol/L; Blood Urea Nitrogen 12 mg/dL (9-20); Carbon Dioxide 20 mmol/L (22-30); Chloride 111 mmol/L (98-107); Glucose 76 mg/dL (74-99); Non-African American GFR(CKD) >90 (>60 ml/min/1.73 sqM); Potassium 3.7 mmol/L (3.5-5.1); Sodium 134 mmol/L (137-145)
[2019-03-12] MEDS: PANTOPRAZOLE 40 MG TABLET PO SCH ×2 (06:42→16:35)
[2019-03-12] MEDS: IPRATROPIUM-ALBUTEROL 3 ML NEB INHALATION SCH ×4 (08:34→20:37)
[2019-03-12] MEDS: MULTIVITAMINS, THERA 1 EACH TAB PO SCH (09:43)
[2019-03-12] MEDS: METOPROLOL TARTRATE 25 MG TAB PO SCH ×2 (09:43→20:03)
--- NOTE | 2019-03-12 11:41 | P.PN ---
Subjective Patient has agreed to amputation of the foot. Patient has cardiac clearance for surgery and will contact vascular surgeon Objective - Vital Signs Vital signs: Vital Signs Temp 97.6 F 03/12/19 09:45 Pulse 93 03/12/19 09:45 Resp 18 03/12/19 09:45 BP 116/55 03/12/19 09:45 Pulse Ox 88 L 03/12/19 09:45 Intake & Output 03/11/19 03/12/19 03/12/19 18:59 06:59 18:59 Intake Total 222 1100 240 Output Total 200 475 Balance 22 625 240 Weight 81.5 kg Intake: IV 1100 Sodium Chloride 0.9% 1, 1100 000 ml @ 100 mls/hr IV . Q10H [facility] Rx#:[id number] Oral 222 240 Output: Urine 200 475 Other: Voiding Method Diaper Indwelling Catheter Indwelling Catheter - Constitutional General appearance: Present: mild distress - EENT Eyes: Present: PERRLA Ears: bilateral: normal - Neck Neck: Present: normal ROM - Respiratory Respiratory: bilateral: CTA - Cardiovascular Abnormal Heart Sounds: Present: systolic murmur - Gastrointestinal General gastrointestinal: Present: normal bowel sounds, soft - Integumentary Integumentary Comment(s): Bilateral lower extremities Integumentary: Present: cellulitis - Neurologic Neurologic: Present: CNII-XII intact - Musculoskeletal Musculoskeletal: Present: generalized weakness - Psychiatric Psychiatric: Present: A&O x's 3, appropriate affect, intact judgment & insight - Labs CBC & Chem 7: 03/12/19 05:41 03/12/19 05:41 Labs: Abnormal Lab Results - Last 24 Hours (Table) 03/11/19 03/11/19 03/12/19 Range/Units 11:01 16:45 05:41 RBC 2.58 L (4.30-5.90) m/uL Hgb 7.5 L (13.0-17.5) gm/dL Hct 25.2 L (39.0-53.0) % MCHC 29.6 L (31.0-37.0) g/dL RDW 19.4 H (11.5-15.5) % Plt Count 84 L (150-450) k/uL Lymphocytes # 0.6 L (1.0-4.8) k/uL Sodium 134 L (137-145) mmol/L Chloride 111 H (98-107) mmol/L Carbon Dioxide 20 L (22-30) mmol/L Creatinine 0.50 L (0.66-1.25) mg/dL POC Glucose (mg/dL) 284 H (75-99) mg/dL Calcium 7.0 L (8.4-10.2) mg/dL 03/12/19 Range/Units 05:41 RBC 2.35 L (4.30-5.90) m/uL Hgb 7.1 L (13.0-17.5) gm/dL Hct 22.9 L (39.0-53.0) % MCHC (31.0-37.0) g/dL RDW 19.3 H (11.5-15.5) % Plt Count 78 L (150-450) k/uL Lymphocytes # (1.0-4.8) k/uL Sodium (137-145) mmol/L Chloride (98-107) mmol/L Carbon Dioxide (22-30) mmol/L Creatinine (0.66-1.25) mg/dL POC Glucose (mg/dL) (75-99) mg/dL Calcium (8.4-10.2) mg/dL Assessment and Plan Plan: Assessment Bilateral leg cellulitis worse on the right with right foot deformity sepsis gram-positive cocci Anemia of chronic disease Metabolic encephalopathy secondary to sepsis Hyponatremia Hypokalemia Severe peripheral vascular disease cirrhosis Elevated lactic acid Chronic COPD History of GI bleed peptic ulcer Plan Patient is full code Had evaluation by cardiology and cleared for foot amputation Continue consultation with vascular surgeon and infectious disease
[2019-03-12] MEDS: APIXABAN 5 MG TAB PO SCH (12:03)
[2019-03-12 12:26] LABS: Glucose,Whole Blood 130 mg/dL (75-99)
--- NOTE | 2019-03-12 13:09 | P.PN ---
Subjective Progress Note Date: 03/12/19 This is a 63-year-old gentleman admitted to the hospital with symptoms of worsening ulceration in his bilateral lower extremities. Cardiology consultation was initially requested for possible surgical intervention not requiring clearance. The patient has known history of COPD, chronic alcohol abuse, cirrhosis of the liver. He was seen in consultation yesterday by Dr. Magaña. Patient had an echocardiogram with Doppler study performed in February which revealed a preserved left ventricular size and systolic function with mild to moderate aortic stenosis and mild tricuspid regurg with moderate pulmonary hypertension. Blood pressure today 116/50 with a heart rate of 90, 88% on 4 L of oxygen. White blood cell count 7.9, hemoglobin 7.1, platelet count 78. Sodium 134, potassium 3.7, BUN 12, and creatinine 0.5. Objective - Vital Signs Vital signs: Vital Signs Temp 97.6 F 03/12/19 09:45 Pulse 88 03/12/19 12:26 Resp 18 03/12/19 09:45 BP 116/55 03/12/19 09:45 Pulse Ox 88 L 03/12/19 09:45 Intake & Output 03/11/19 03/12/19 03/12/19 18:59 06:59 18:59 Intake Total 222 1100 240 Output Total 200 475 Balance 22 625 240 Weight 81.5 kg Intake: IV 1100 Sodium Chloride 0.9% 1, 1100 000 ml @ 100 mls/hr IV . Q10H [facility] Rx#:[id number] Oral 222 240 Output: Urine 200 475 Other: Voiding Method Diaper Indwelling Catheter Indwelling Catheter - Exam PHYSICAL EXAMINATION: GENERAL: 63-year-old gentleman in no acute distress at the time of my examination HEENT: Head is atraumatic, normocephalic. Pupils equal, round. Sclera anicteric. Conjunctiva are clear. Mucous membranes of the mouth are moist. Neck is supple. There is no elevated jugular venous pressure. No carotid bruit is heard. HEART EXAMINATION: Heart S1 and S2 1 systolic ejection murmur is heard CHEST EXAMINATION: Reveal decreased air exchange throughout ABDOMEN: Soft, nontender. Bowel sounds are heard. No organomegaly noted. EXTREMITIES: Dressings in place to bilateral lower extremities NEUROLOGIC [patient is awake, confused - Labs CBC & Chem 7: 03/12/19 05:41 03/12/19 05:41 Labs: Abnormal Lab Results - Last 24 Hours (Table) 03/11/19 03/11/19 03/12/19 Range/Units 11:01 16:45 05:41 RBC 2.58 L (4.30-5.90) m/uL Hgb 7.5 L (13.0-17.5) gm/dL Hct 25.2 L (39.0-53.0) % MCHC 29.6 L (31.0-37.0) g/dL RDW 19.4 H (11.5-15.5) % Plt Count 84 L (150-450) k/uL Lymphocytes # 0.6 L (1.0-4.8) k/uL Sodium 134 L (137-145) mmol/L Chloride 111 H (98-107) mmol/L Carbon Dioxide 20 L (22-30) mmol/L Creatinine 0.50 L (0.66-1.25) mg/dL POC Glucose (mg/dL) 284 H (75-99) mg/dL Calcium 7.0 L (8.4-10.2) mg/dL 03/12/19 03/12/19 Range/Units 05:41 11:32 RBC 2.35 L (4.30-5.90) m/uL Hgb 7.1 L (13.0-17.5) gm/dL Hct 22.9 L (39.0-53.0) % MCHC (31.0-37.0) g/dL RDW 19.3 H (11.5-15.5) % Plt Count 78 L (150-450) k/uL Lymphocytes # (1.0-4.8) k/uL Sodium (137-145) mmol/L Chloride (98-107) mmol/L Carbon Dioxide (22-30) mmol/L Creatinine (0.66-1.25) mg/dL POC Glucose (mg/dL) 130 H (75-99) mg/dL Calcium (8.4-10.2) mg/dL Assessment and Plan Plan: Assessment and plan #1 cellulitis lower extremities with nonhealing ulceration, being evaluated for possible amputation #2 mild to moderate aortic stenosis with no associated symptoms #3 history of liver cirrhosis and alcoholism #4 prior history of smoking #5 anemia Plan From cardiology's perspective, patient has no overt signs of angina or congestive heart failure and echo reveals normal left ventricular systolic function. If indicated, there are no contraindications to amputation, patient has been reinitiated on beta nidhi. We will follow this patient along with you now on an as-needed basis only, please don't hesitate to call with any questions area. DNP note has been reviewed, I agree with a documented findings and plan of care. Patient was seen and examined.
--- NOTE | 2019-03-12 15:26 | P.CNPUL ---
History of Present Illness Consult date: 03/12/19 Requesting physician: Narayan Trevino Reason for consult: other Chief complaint: Preop pulmonary clearance History of present illness: This is 63-year-old white male patient of Dr. Trevino, with past medical history of COPD/emphysema, chronic hypoxic respiratoryi, GERD/reflux, previous episodes of pneumonia, previous episode of GI bleeding, duodenal ulcer, chronic wound on his right heel, severe peripheral vascular disease and patient continues to smoke. Patient given to the hospital per EMS on 03/07/2019 with a complaint of pain in his right lower hurst and right knee, and concern of infection in his right lower extremity. Patient had mild lactic acid elevation at 4.0, was fluid resuscitated, and started on broad-spectrum antibiotics. Patient has had a chronic wound to his right lower extremity for many years, and he has been following with infectious disease and wound Center. He was seen bibasilar surgery, and no intervention is planned at this time. The patient and the family are considering a second opinion. He has been treated with a combination of Zosyn and vancomycin, and his right foot wound cultures are positive for presumptive staph aureus, and blood cultures are positive for Staphylococcus epidermidis. Despite the medical treatment patient is having worsening symptoms of sepsis. Pulmonary consultation is requested for preop clearance for possibility of right foot amputation. In terms of patient's history of COPD, he used to follow with Dr. Kyle in the pulmonary clinic but he has not been seen there for last 2 years. His last PFT in 2017 showed FEV1 of 79% of predicted with DLVA of 36%, and it was felt that his COPD was mostly emphysematous type. He is on home oxygen at 4 L on the regular basis, he is to be on maintenance inhalers, but not recently. He had 2 chest x-rays while inpatient, and both showed stable chronic emphysematous and parenchymal changes without acute pulmonary process. He remains on 4 L of oxygen his pulse ox is 88%, he is mildly dyspneic, but no acute distress, lung sounds reveal decreased breath sounds bilaterally, no major wheezing rhonchi or rales. Review of Systems All systems: negative Constitutional: Denies chills, Denies fever Eyes: denies blurred vision, denies pain Ears, nose, mouth and throat: Denies headache, Denies sore throat Cardiovascular: Denies chest pain, Denies shortness of breath Respiratory: Denies cough Gastrointestinal: Denies abdominal pain, Denies diarrhea, Denies nausea, Denies vomiting Musculoskeletal: Denies myalgias Musculoskeletal: right: ankle pain, ankle swelling Integumentary: Reports foot/leg ulcers, Reports wounds, Denies pruritus, Denies rash Neurological: Denies numbness, Denies weakness Psychiatric: Denies anxiety, Denies depression Endocrine: Denies fatigue, Denies weight change Past Medical History Past Medical History: COPD, Deep Vein Thrombosis (DVT), GERD/Reflux, GI Bleed, Hypertension, Pneumonia, Vascular Disorder Additional Past Medical History / Comment(s): Pt recently admitted to [facility] on 02/14/19 with chronic cellulitis R foot with deformity/L hand contracture/L leg weakness and was transferred to [facility]. Pt states he had an angiogram done there. Other hx: Upper GI hemorrhage/duodenal ulcer with acute blood loss anemia/multiple transfusions and intubated/vented, possible pneumonia/ thrombocytopenia/ hyperammonemia with possible chronic liver disease/cirrhosis-pt was transferred to [facility] and pt states they informed him he does not have liver disease/cirrhosis, O2 2-4L/NC prn, L hand tendonitis, lymphedema/lower extremity edema, DVT l upper extremity, pancytopenia, hyperbilirubenemia, cholelithiasis, current R heel ulcer being seen in wound care center, bilateral lower leg wounds, falls, R leg shorter than L leg. History of Any Multi-Drug Resistant Organisms: CRE Date of last positivie culture/infection: 11/27/17 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 CONFIRMED BY [facility] MDRO Source:: Ankle Past Surgical History: Orthopedic Surgery Additional Past Surgical History / Comment(s): R hip ORIF with screws/rods, R ankle tendon surgery, multiple endoscopies-EGDs/colonoscopies,multiple debridements, aortagrams. Past Anesthesia/Blood Transfusion Reactions: No Reported Reaction Additional Past Anesthesia/Blood Transfusion Reaction / Comment(s): Pt has received blood without reaction. Smoking Status: Light tobacco smoker - Past Family History Mother Family Medical History: GERD/Reflux Additional Family Medical History / Comment(s): of crohn's disease Father Family Medical History: Diabetes Mellitus Medications and Allergies Home Medications Medication Instructions Recorded Confirmed Type Amoxic-Pot Clav 875-125Mg 1 tab PO Q12HR 03/07/19 03/07/19 History [Augmentin 875-125] Apixaban [Eliquis] 5 mg PO BID 03/07/19 03/07/19 History Multivit-Min/FA/Lycopen/Lutein 1 tab PO DAILY 03/07/19 03/07/19 History [Centrum Silver Men Tablet] Pantoprazole [Protonix] 40 mg PO BID 03/07/19 03/07/19 History SILVER sulfADIAZINE Cream 1 applic TOPICAL BID 03/07/19 03/07/19 History [Silvadene 1% Cream] Allergies Allergy/AdvReac Type Severity Reaction Status Date / Time No Known Allergies Allergy Verified 03/07/19 11:06 Physical Exam Vitals: Vital Signs Temp Pulse Pulse Resp BP Pulse Ox 03/12/19 12:26 88 03/12/19 12:08 88 03/12/19 09:45 97.6 F 93 18 116/55 88 L 03/12/19 08:58 96 03/12/19 08:34 92 03/12/19 03:50 97.9 F 105 H 17 118/71 92 L 03/12/19 00:10 97.8 F 110 H 18 125/77 93 L 03/12/19 00:00 110 H 17 03/11/19 20:00 97.6 F 111 H 17 127/75 94 L 03/11/19 19:48 88 16 03/11/19 19:37 90 16 03/11/19 16:00 110 H 16 03/11/19 15:54 88 16 03/11/19 15:44 90 16 03/11/19 15:00 97.7 F 110 H 16 133/78 93 L Intake and Output 03/11/19 03/12/19 03/12/19 22:59 06:59 14:59 Intake Total 1100 240 Output Total 200 475 Balance -200 625 240 Intake: IV 1100 Sodium Chloride 0.9% 1, 1100 000 ml @ 100 mls/hr IV . Q10H [facility] Rx#:[id number] Oral 240 Output: Urine 200 475 Other: Voiding Method Indwelling Catheter Indwelling Catheter Indwelling Catheter Weight 81.5 kg GENERAL EXAM: Alert, confused, 63-year-old white male, on 4 L of oxygen, with a pulse ox of 88% comfortable in no apparent distress. HEAD: Normocephalic/atraumatic. EYES: Normal reaction of pupils, equal size. Conjunctiva pink, sclera white. NOSE: Clear with pink turbinates. THROAT: No erythema or exudates. NECK: No masses, no JVD, no thyroid enlargement, no adenopathy. CHEST: No chest wall deformity. Symmetrical expansion. LUNGS: Diminished air entry with no crackles, wheeze, rhonchi or dullness. CVS: Regular rate and rhythm, normal S1 and S2, no gallops, no murmurs, no rubs ABDOMEN: Soft, nontender. No hepatosplenomegaly, normal bowel sounds, no guarding or rigidity. EXTREMITIES: No clubbing, 1+ nonpitting bilateral lower extremity edema, and redness and ulcerations moving both extremities, right greater than left, covered with dressings, unable to access pedal and posttibial pulses MUSCULOSKELETAL: Muscle strength and tone normal. SPINE: No scoliosis or deformity SKIN: Redness involving her lower extremity's, right greater than left CENTRAL NERVOUS SYSTEM: Alert and oriented -3. No focal deficits, tone is normal in all 4 extremities. PSYCHIATRIC: Alert and oriented -3. Appropriate affect. Intact judgment and insight. Results - Laboratory Findings CBC and BMP: 03/12/19 05:41 03/12/19 05:41 PT/INR, D-dimer PT 19.9 sec (9.0-12.0) H 03/07/19 09:18 INR 2.0 (<1.2) H 03/07/19 09:18 Abnormal lab findings: Abnormal Labs 03/07/19 03/07/19 03/07/19 09:18 09:18 09:18 RBC 3.19 L Hgb 9.6 L Hct 30.2 L MCHC RDW 18.9 H Plt Count 137 L Lymphocytes # 0.5 L Lymphocytes # (Manual) PT INR APTT Sodium 130 L Potassium 2.8 L Chloride Carbon Dioxide 19 L BUN 21 H Creatinine 0.62 L Glucose 117 H POC Glucose (mg/dL) Plasma Lactic Acid Milton 4.0 H* Calcium 8.0 L Total Bilirubin 3.7 H AST 87 H Alkaline Phosphatase 213 H Total Protein Albumin 1.9 L 03/07/19 03/07/19 03/07/19 09:18 14:23 18:23 RBC Hgb Hct MCHC RDW Plt Count Lymphocytes # Lymphocytes # (Manual) PT 19.9 H INR 2.0 H APTT 43.4 H Sodium Potassium Chloride Carbon Dioxide BUN Creatinine Glucose POC Glucose (mg/dL) Plasma Lactic Acid Milton 2.7 H* 3.1 H* Calcium Total Bilirubin AST Alkaline Phosphatase Total Protein Albumin 03/07/19 03/08/19 03/08/19 22:38 02:51 02:51 RBC 2.60 L Hgb 7.8 L D Hct 24.5 L MCHC RDW 19.2 H Plt Count 92 L Lymphocytes # 0.5 L Lymphocytes # (Manual) PT INR APTT Sodium 131 L Potassium 3.4 L Chloride Carbon Dioxide 20 L BUN Creatinine 0.51 L Glucose POC Glucose (mg/dL) Plasma Lactic Acid Milton 2.3 H* Calcium 7.3 L Total Bilirubin 2.7 H AST 69 H Alkaline Phosphatase 173 H Total Protein 5.4 L Albumin 1.5 L 03/09/19 03/09/19 03/10/19 08:47 08:47 05:32 RBC 2.50 L Hgb 7.6 L Hct 24.2 L MCHC RDW 19.3 H Plt Count 77 L Lymphocytes # Lymphocytes # (Manual) 0.09 L PT INR APTT Sodium 135 L 133 L Potassium 3.4 L Chloride 109 H 108 H Carbon Dioxide 21 L 20 L BUN Creatinine 0.61 L 0.63 L Glucose POC Glucose (mg/dL) Plasma Lactic Acid Milton Calcium 7.4 L 7.3 L Total Bilirubin 2.7 H 2.6 H AST 77 H 88 H Alkaline Phosphatase 159 H 178 H Total Protein 5.6 L 5.6 L Albumin 1.5 L 1.5 L 03/10/19 03/10/19 03/10/19 05:32 11:58 15:53 RBC 2.54 L Hgb 7.5 L Hct 24.6 L MCHC 30.4 L RDW 20.1 H Plt Count 84 L Lymphocytes # Lymphocytes # (Manual) 0.23 L PT INR APTT Sodium Potassium Chloride Carbon Dioxide BUN Creatinine Glucose POC Glucose (mg/dL) Plasma Lactic Acid Milton 3.0 H* 3.5 H* Calcium Total Bilirubin AST Alkaline Phosphatase Total Protein Albumin 03/10/19 03/11/19 03/11/19 20:47 11:01 11:01 RBC 2.58 L Hgb 7.5 L Hct 25.2 L MCHC 29.6 L RDW 19.4 H Plt Count 84 L Lymphocytes # 0.6 L Lymphocytes # (Manual) PT INR APTT Sodium 135 L Potassium Chloride 111 H Carbon Dioxide 19 L BUN Creatinine 0.60 L Glucose 175 H POC Glucose (mg/dL) Plasma Lactic Acid Milton 4.0 H* Calcium 7.2 L Total Bilirubin AST Alkaline Phosphatase Total Protein Albumin 03/11/19 03/12/19 03/12/19 16:45 05:41 05:41 RBC 2.35 L Hgb 7.1 L Hct 22.9 L MCHC RDW 19.3 H Plt Count 78 L Lymphocytes # Lymphocytes # (Manual) PT INR APTT Sodium 134 L Potassium Chloride 111 H Carbon Dioxide 20 L BUN Creatinine 0.50 L Glucose POC Glucose (mg/dL) 284 H Plasma Lactic Acid Milton Calcium 7.0 L Total Bilirubin AST Alkaline Phosphatase Total Protein Albumin 03/12/19 11:32 RBC Hgb Hct MCHC RDW Plt Count Lymphocytes # Lymphocytes # (Manual) PT INR APTT Sodium Potassium Chloride Carbon Dioxide BUN Creatinine Glucose POC Glucose (mg/dL) 130 H Plasma Lactic Acid Milton Calcium Total Bilirubin AST Alkaline Phosphatase Total Protein Albumin - Diagnostic Findings Chest x-ray: report reviewed, image reviewed Assessment and Plan Plan: Assessment: #1. Sepsis related to right lower leg wounds, with cultures positive for presumptive staph #2. Gram-positive cocci bacteremia related to the above #3. Chronic poorly healing wounds on right lower extremity #4. Emphysema/COPD, advanced, with chronic hypoxemic respiratory failure. Patient has been lost to follow-up in the pulmonary clinic for last 2 years, but last PFT from 2017 showed FEV1 79%, with decreased diffusion capacity at 34% of predicted #5. Former cocaine dependence, currently in remission #6. GERD/reflux #7. Previous episodes of GI bleeding related to a duodenal ulcer #8. Previous history of pneumonia #9. History of chronic liver disease Plan: From pulmonary perspective patient is a high risk for surgery, however if the benefits of the right foot amputation outweigh the potential risks, patient is cleared from pulmonary perspective. Both chest x-rays from this admission reviewed and showed no acute pulmonary process. Continue breathing treatments, no signs of active COPD exacerbation at this time. Provide incentive spirometer, encourage deep breathing and coughing. I performed a history & physical examination of the patient and discussed their management with my nurse practitioner, Irena Ortiz. I reviewed the nurse practitioner's note and agree with the documented findings and plan of care. Lung sounds are positive for diminished breath sounds. The findings and the impression was discussed with the patient. I attest to the documentation by the nurse practitioner. Time with Patient: Greater than 30
[2019-03-12] MEDS: SYMBICORT 160-4.5 MCG INHALER INHALATION SCH (20:37)
[2019-03-13] MEDS: SYMBICORT 160-4.5 MCG INHALER INHALATION SCH ×2 (07:00→21:01)
[2019-03-13] MEDS: IPRATROPIUM-ALBUTEROL 3 ML NEB INHALATION SCH ×4 (07:00→21:01)
[2019-03-13] MEDS: PANTOPRAZOLE 40 MG TABLET PO SCH ×2 (07:04→18:59)
[2019-03-13] MEDS: HYDROcodone/APAP 5-325MG 1 EACH TAB PO PRN (08:26)
[2019-03-13] MEDS: METOPROLOL TARTRATE 25 MG TAB PO SCH ×2 (08:27→21:33)
[2019-03-13] MEDS: MULTIVITAMINS, THERA 1 EACH TAB PO SCH (08:27)
--- NOTE | 2019-03-13 10:26 | P.PN ---
Subjective Progress Note Date: 03/13/19 Principal diagnosis: This is 63-year-old white male patient of Dr. Trevino, with past medical history of COPD/emphysema, chronic hypoxic respiratoryi, GERD/reflux, previous episodes of pneumonia, previous episode of GI bleeding, duodenal ulcer, chronic wound on his right heel, severe peripheral vascular disease and patient continues to smoke. Patient given to the hospital per EMS on 03/07/2019 with a complaint of pain in his right lower hurst and right knee, and concern of infection in his right lower extremity. Patient had mild lactic acid elevation at 4.0, was fluid resuscitated, and started on broad-spectrum antibiotics. Patient has had a chronic wound to his right lower extremity for many years, and he has been following with infectious disease and wound Center. He was seen bibasilar surgery, and no intervention is planned at this time. The patient and the family are considering a second opinion. He has been treated with a combination of Zosyn and vancomycin, and his right foot wound cultures are positive for presumptive staph aureus, and blood cultures are positive for Staphylococcus epidermidis. Despite the medical treatment patient is having worsening symptoms of sepsis. Pulmonary consultation is requested for preop clearance for possibility of right foot amputation. In terms of patient's history of COPD, he used to follow with Dr. Kyle in the pulmonary clinic but he has not been seen there for last 2 years. His last PFT in 2017 showed FEV1 of 79% of predicted with DLVA of 36%, and it was felt that his COPD was mostly emphysematous type. He is on home oxygen at 4 L on the regular basis, he is to be on maintenance inhalers, but not recently. He had 2 chest x-rays while inpatient, and both showed stable chronic emphysematous and parenchymal changes without acute pulmonary process. He remains on 4 L of oxygen his pulse ox is 88%, he is mildly dyspneic, but no acute distress, lung sounds reveal decreased breath sounds bilaterally, no major wheezing rhonchi or rales. On 03/13/2019 patient seen in follow-up on selective care unit, he is awake and alert, in no acute distress, seems to be less confused on today's exam. Answering questions appropriately, he is oriented to person, place and the place. A bit more wheezy compared to yesterday's exam, he is working on incentive spirometer, he is achieving [id number] on the today. He remains on oxygen at 3 L, his pulse ox is 93%, no new labs today, remains on IV antibiotics, local wound care to bilateral extremities. Hemodynamically patient is stable, and tentatively patient is scheduled for surgery tomorrow Objective - Vital Signs Vital signs: Vital Signs Temp 98.1 F 03/13/19 08:10 Pulse 89 03/13/19 08:10 Resp 18 03/13/19 08:10 BP 116/57 03/13/19 08:10 Pulse Ox 93 L 03/13/19 08:10 Intake & Output 03/12/19 03/13/19 03/13/19 18:59 06:59 18:59 Intake Total 610 240 Balance 610 240 Intake: IV 250 Sodium Chloride 0.9% 1, 200 000 ml @ 100 mls/hr IV . Q10H [facility] Rx#:[id number] cefTRIAXone 2 gm In 50 Sodium Chloride 0.9% 50 ml @ 100 mls/hr IVPB Q24HR [facility] Rx#:[id number] Oral 360 240 Other: Voiding Method Indwelling Catheter Indwelling Catheter - Exam GENERAL EXAM: Alert, confused, 63-year-old white male, on 4 L of oxygen, with a pulse ox of 93% comfortable in no apparent distress. HEAD: Normocephalic/atraumatic. EYES: Normal reaction of pupils, equal size. Conjunctiva pink, sclera white. NOSE: Clear with pink turbinates. THROAT: No erythema or exudates. NECK: No masses, no JVD, no thyroid enlargement, no adenopathy. CHEST: No chest wall deformity. Symmetrical expansion. LUNGS: Diminished air entry with no crackles, wheeze, rhonchi or dullness. CVS: Regular rate and rhythm, normal S1 and S2, no gallops, no murmurs, no rubs ABDOMEN: Soft, nontender. No hepatosplenomegaly, normal bowel sounds, no guarding or rigidity. EXTREMITIES: No clubbing, 1+ nonpitting bilateral lower extremity edema, and redness and ulcerations moving both extremities, right greater than left, covered with dressings, unable to access pedal and posttibial pulses MUSCULOSKELETAL: Muscle strength and tone normal. SPINE: No scoliosis or deformity SKIN: Redness involving her lower extremity's, right greater than left CENTRAL NERVOUS SYSTEM: Alert and oriented -3. No focal deficits, tone is normal in all 4 extremities. PSYCHIATRIC: Alert and oriented -3. Appropriate affect. Intact judgment and insight. - Labs CBC & Chem 7: 03/12/19 05:41 03/12/19 05:41 Labs: Abnormal Lab Results - Last 24 Hours (Table) 03/12/19 Range/Units 11:32 POC Glucose (mg/dL) 130 H (75-99) mg/dL Assessment and Plan Plan: Assessment: #1. Sepsis related to right lower leg wounds, with cultures positive for presumptive staph #2. Gram-positive cocci bacteremia related to the above #3. Chronic poorly healing wounds on right lower extremity #4. Emphysema/COPD, advanced, with chronic hypoxemic respiratory failure. Patient has been lost to follow-up in the pulmonary clinic for last 2 years, but last PFT from 2017 showed FEV1 79%, with decreased diffusion capacity at 34% of predicted #5. Former cocaine dependence, currently in remission #6. GERD/reflux #7. Previous episodes of GI bleeding related to a duodenal ulcer #8. Previous history of pneumonia #9. History of chronic liver disease Plan: Continue encouraging deep breathing and coughing, nebulized bronchodilators, Symbicort, maintain aspiration precautions, right foot amputation surgery is tentatively scheduled for tomorrow, we'll continue to follow and monitor the pa tient from pulmonary perspective. I performed a history & physical examination of the patient and discussed their management with my nurse practitioner, Irena Ortiz. I reviewed the nurse practitioner's note and agree with the documented findings and plan of care. Lung sounds are positive for diminished breath sounds. The findings and the impression was discussed with the patient. I attest to the documentation by the nurse practitioner. Time with Patient: Less than 30
--- NOTE | 2019-03-13 11:17 | P.PN ---
Subjective Patient has been cleared medically by cardiology and pulmonology for right foot amputation discuss case with Dr. Arevalo patient understands the need for procedure Objective - Vital Signs Vital signs: Vital Signs Temp 98.1 F 03/13/19 08:10 Pulse 80 03/13/19 10:54 Resp 18 03/13/19 08:10 BP 116/57 03/13/19 08:10 Pulse Ox 93 L 03/13/19 08:10 Intake & Output 03/12/19 03/13/19 03/13/19 18:59 06:59 18:59 Intake Total 610 240 Balance 610 240 Intake: IV 250 Sodium Chloride 0.9% 1, 200 000 ml @ 100 mls/hr IV . Q10H [facility] Rx#:[id number] cefTRIAXone 2 gm In 50 Sodium Chloride 0.9% 50 ml @ 100 mls/hr IVPB Q24HR [facility] Rx#:[id number] Oral 360 240 Other: Voiding Method Indwelling Catheter Indwelling Catheter - Constitutional General appearance: Present: mild distress - EENT Eyes: Present: PERRLA Ears: bilateral: normal - Neck Neck: Present: normal ROM - Respiratory Respiratory: bilateral: diminished - Cardiovascular Rhythm: regular Abnormal Heart Sounds: Present: systolic murmur - Gastrointestinal General gastrointestinal: Present: hyperactive bowel sounds, soft - Integumentary Integumentary Comment(s): Cellulitis lower extremities worse on the right with right foot deformity - Neurologic Neurologic: Present: CNII-XII intact - Psychiatric Psychiatric: Present: A&O x's 3, appropriate affect, intact judgment & insight - Labs CBC & Chem 7: 03/12/19 05:41 03/12/19 05:41 Labs: Abnormal Lab Results - Last 24 Hours (Table) 03/12/19 Range/Units 11:32 POC Glucose (mg/dL) 130 H (75-99) mg/dL Assessment and Plan Plan: Assessment Bilateral leg cellulitis with sepsis gram-positive cocci anemia of the chronic disease Metabolic encephalopathy secondary to sepsis Hyponatremia Hypokalemia Liver cirrhosis Acute on chronic COPD GERD History of GI bleeding from peptic ulcer Plan Full code Continue consultation with infectious disease vascular surgeon cardiology and pulmonology Plan for amputation right foot Sunday or Sunday
[2019-03-13 16:13] LABS: African American GFR (CKD) >90 (>60 ml/min/1.73 sqM); Anion Gap 4 mmol/L; Anisocytosis Slight; Blood Urea Nitrogen 13 mg/dL (9-20); Calcium 7.4 mg/dL (8.4-10.2); Carbon Dioxide 21 mmol/L (22-30); Chloride 109 mmol/L (98-107); Glucose 113 mg/dL (74-99); HCT 24.6 % (39.0-53.0); HGB 7.6 gm/dL (13.0-17.5); Hypochromasia Marked; MCH 29.9 pg (25.0-35.0); MCHC 30.7 g/dL (31.0-37.0); MCV 97.5 fL (80.0-100.0); Macrocytosis Slight; Mean Platelet Volume 9.5; Non-African American GFR(CKD) >90 (>60 ml/min/1.73 sqM); Platelet Count 93 k/uL (150-450); Poikilocytosis Slight; RBC 2.53 m/uL (4.30-5.90); RDW 19.4 % (11.5-15.5); Sodium 134 mmol/L (137-145); WBC 8.9 k/uL (3.8-10.6)
[2019-03-13 16:26] LABS: Anisocytosis (M) Present; Eosinophils # (M) 0.09 k/uL (0-0.7); Hypochromasia (M) Present; Lymphocytes # (M) 0.45 k/uL (1.0-4.8); Monocytes # (M) 0.09 k/uL (0-1.0); Neutrophils # (M) 8.28 k/uL (1.3-7.7); Neutrophils % (M) 93 %; Nucleated Red Blood Cells 0 /100 WBC (0-0); Polychromasia Present; Total Cells Counted 100
[2019-03-14] MEDS: HYDROcodone/APAP 5-325MG 1 EACH TAB PO PRN (03:33)
[2019-03-14] MEDS: PANTOPRAZOLE 40 MG TABLET PO SCH ×2 (06:40→17:58)
[2019-03-14] MEDS: SYMBICORT 160-4.5 MCG INHALER INHALATION SCH ×2 (09:01→20:42)
[2019-03-14] MEDS: IPRATROPIUM-ALBUTEROL 3 ML NEB INHALATION SCH ×4 (09:01→20:42)
[2019-03-14] MEDS: MULTIVITAMINS, THERA 1 EACH TAB PO SCH (09:43)
[2019-03-14] MEDS: METOPROLOL TARTRATE 25 MG TAB PO SCH ×2 (09:43→22:10)
--- NOTE | 2019-03-14 14:19 | P.PN ---
Subjective Progress Note Date: 03/14/19 Principal diagnosis: This is 63-year-old white male patient of Dr. Trevino, with past medical history of COPD/emphysema, chronic hypoxic respiratoryi, GERD/reflux, previous episodes of pneumonia, previous episode of GI bleeding, duodenal ulcer, chronic wound on his right heel, severe peripheral vascular disease and patient continues to smoke. Patient given to the hospital per EMS on 03/07/2019 with a complaint of pain in his right lower hurst and right knee, and concern of infection in his right lower extremity. Patient had mild lactic acid elevation at 4.0, was fluid resuscitated, and started on broad-spectrum antibiotics. Patient has had a chronic wound to his right lower extremity for many years, and he has been following with infectious disease and wound Center. He was seen bibasilar surgery, and no intervention is planned at this time. The patient and the family are considering a second opinion. He has been treated with a combination of Zosyn and vancomycin, and his right foot wound cultures are positive for presumptive staph aureus, and blood cultures are positive for Staphylococcus epidermidis. Despite the medical treatment patient is having worsening symptoms of sepsis. Pulmonary consultation is requested for preop clearance for possibility of right foot amputation. In terms of patient's history of COPD, he used to follow with Dr. Kyle in the pulmonary clinic but he has not been seen there for last 2 years. His last PFT in 2017 showed FEV1 of 79% of predicted with DLVA of 36%, and it was felt that his COPD was mostly emphysematous type. He is on home oxygen at 4 L on the regular basis, he is to be on maintenance inhalers, but not recently. He had 2 chest x-rays while inpatient, and both showed stable chronic emphysematous and parenchymal changes without acute pulmonary process. He remains on 4 L of oxygen his pulse ox is 88%, he is mildly dyspneic, but no acute distress, lung sounds reveal decreased breath sounds bilaterally, no major wheezing rhonchi or rales. On 03/13/2019 patient seen in follow-up on selective care unit, he is awake and alert, in no acute distress, seems to be less confused on today's exam. Answering questions appropriately, he is oriented to person, place and the place. A bit more wheezy compared to yesterday's exam, he is working on incentive spirometer, he is achieving [id number] on the today. He remains on oxygen at 3 L, his pulse ox is 93%, no new labs today, remains on IV antibiotics, local wound care to bilateral extremities. Hemodynamically patient is stable, and tentatively patient is scheduled for surgery tomorrow On 03/14/2019 patient seen in follow-up on selective care unit, he is awake and alert, oriented 3, does not appear to be in any acute distress, 5 to is 3 L, with a pulse ox of 90-93%, afebrile, remains on antibiotics, no significant wheezing or congestion today, he is working on incentive spirometer with someone's assistance. Today's labs have been reviewed, white blood cell chronic is 8.9, hemoglobin is 7.6 and patient isn't a speech receive a unit of packed red blood cells, serum sodium is 134, potassium is 4.0, chloride is 109, CO2 is 21, BUN is 13 creatinine 0.52. Objective - Vital Signs Vital signs: Vital Signs Temp 98.3 F 03/14/19 08:20 Pulse 84 03/14/19 12:16 Resp 18 03/14/19 12:16 BP 119/58 03/14/19 08:20 Pulse Ox 90 L 03/14/19 08:20 Intake & Output 03/13/19 03/14/19 03/14/19 18:59 06:59 18:59 Intake Total 360 600 Output Total 1500 450 300 Balance -1140 -450 300 Weight 81.5 kg 63 kg Intake: Oral 360 600 Output: Urine 1500 450 300 Uretheral (Lim) 1300 175 Other: Voiding Method Indwelling Catheter - Exam GENERAL EXAM: Alert, confused, 63-year-old white male, on 4 L of oxygen, with a pulse ox of 93% comfortable in no apparent distress. HEAD: Normocephalic/atraumatic. EYES: Normal reaction of pupils, equal size. Conjunctiva pink, sclera white. NOSE: Clear with pink turbinates. THROAT: No erythema or exudates. NECK: No masses, no JVD, no thyroid enlargement, no adenopathy. CHEST: No chest wall deformity. Symmetrical expansion. LUNGS: Diminished air entry with no crackles, wheeze, rhonchi or dullness. CVS: Regular rate and rhythm, normal S1 and S2, no gallops, no murmurs, no rubs ABDOMEN: Soft, nontender. No hepatosplenomegaly, normal bowel sounds, no guarding or rigidity. EXTREMITIES: No clubbing, 1+ nonpitting bilateral lower extremity edema, and redness and ulcerations moving both extremities, right greater than left, covered with dressings, unable to access pedal and posttibial pulses MUSCULOSKELETAL: Muscle strength and tone normal. SPINE: No scoliosis or deformity SKIN: Redness involving her lower extremity's, right greater than left CENTRAL NERVOUS SYSTEM: Alert and oriented -3. No focal deficits, tone is normal in all 4 extremities. PSYCHIATRIC: Alert and oriented -3. Appropriate affect. Intact judgment and insight. - Labs CBC & Chem 7: 03/13/19 14:59 03/13/19 14:59 Labs: Abnormal Lab Results - Last 24 Hours (Table) 03/13/19 03/13/19 03/13/19 Range/Units 14:59 14:59 14:59 RBC 2.53 L (4.30-5.90) m/uL Hgb 7.6 L (13.0-17.5) gm/dL Hct 24.6 L (39.0-53.0) % MCHC 30.7 L (31.0-37.0) g/dL RDW 19.4 H (11.5-15.5) % Plt Count 93 L (150-450) k/uL Neutrophils # (Manual) 8.28 H (1.3-7.7) k/uL Lymphocytes # (Manual) 0.45 L (1.0-4.8) k/uL Sodium 134 L (137-145) mmol/L Chloride 109 H (98-107) mmol/L Carbon Dioxide 21 L (22-30) mmol/L Creatinine 0.52 L (0.66-1.25) mg/dL Glucose 113 H (74-99) mg/dL Calcium 7.4 L (8.4-10.2) mg/dL Crossmatch See Detail Assessment and Plan Plan: Assessment: #1. Sepsis related to right lower leg wounds, with cultures positive for presumptive staph #2. Gram-positive cocci bacteremia related to the above #3. Chronic poorly healing wounds on right lower extremity #4. Emphysema/COPD, advanced, with chronic hypoxemic respiratory failure. Patient has been lost to follow-up in the pulmonary clinic for last 2 years, but last PFT from 2017 showed FEV1 79%, with decreased diffusion capacity at 34% of predicted #5. Former cocaine dependence, currently in remission #6. GERD/reflux #7. Previous episodes of GI bleeding related to a duodenal ulcer #8. Previous history of pneumonia #9. History of chronic liver disease Plan: Continue antibiotics, breathing treatments, Symbicort, maintain aspiration precautions, no worsening dyspnea, encourage deep breathing and coughing, patient has been cleared for surgery from pulmonary perspective however he is a high surgical risk and his overall prognosis is extremely guarded I performed a history & physical examination of the patient and discussed their management with my nurse practitioner, Irena Ortiz. I reviewed the nurse practitioner's note and agree with the documented findings and plan of care. Lung sounds are positive for diminished breath sounds. The findings and the impression was discussed with the patient. I attest to the documentation by the nurse practitioner. Time with Patient: Less than 30
--- NOTE | 2019-03-14 15:26 | PN ---
PROGRESS NOTE This is a 63-year-old gentleman who has been admitted for the last few months for recurrent right lower extremity infection with chronic wound involving the dorsum and left aspect of the foot and right lower extremity. The patient has a history of severe peripheral vascular disease. The patient also has a history of COPD on nasal oxygen, his oxygen saturation is 90% - 93% on 4 L. Patient was seen by Cardiology and cleared for surgical intervention. The patient also under care of Infectious Disease, Dr. Justyn Hamlin and is also seen by Dr. Henderson for clearance. Patient has a has some high risk from pulmonary point of view, but there is no contraindication. His white blood cell count is 7.9, hemoglobin is 7.1, platelets are 78. Potassium is 3.7. PHYSICAL EXAMINATION: Patient has femoral pulses 2+. Patient has a chronic wound right lower extremity involving the foot and plantar aspect of the foot and dorsal aspect of the foot. I had a long discussion with the brother and the son today about above-knee amputation. We have discussed patient high risk for surgery just because of recurrent infection and they agreed to proceed with this procedure. Risks and complication, heart attack, respiratory arrest, pulmonary embolism, bleeding, infection has been discussed. MMODL / IJN: [id number] /
[2019-03-14 17:19] LABS: Glucose,Whole Blood 125 mg/dL (75-99)
--- NOTE | 2019-03-14 19:02 | PN ---
PROGRESS NOTE DATE OF SERVICE: 03/14/2019 This 63-year-old gentleman who was admitted with significant infection of both feet, right more than left, and cellulitis is being closely monitored. The patient also had sepsis present on admission. Amputation of the right foot is being planned for Sunday by Dr. Arevalo. The patient is closely monitored at this time. Past medical history reviewed. REVIEW OF SYSTEMS: CARDIOVASCULAR SYSTEM: No angina, palpitations. RESPIRATORY SYSTEM: As mentioned earlier. GI: As mentioned earlier. : No dysuria or retention. NERVOUS SYSTEM: No numbness, weakness. CURRENT MEDICATIONS: Reviewed. They include: 1. [place] 5 mg q.4 p.r.n. 2. DuoNeb q.i.d. and p.r.n. 3. Xanax. 4. Symbicort 160/4.5 two puffs b.i.d. 5. Rocephin 2 grams daily. 6. Replacement protocols. 7. Multivitamins. 8. Narcan. 9. Protonix. 10.Restoril. Doses are reviewed. PHYSICAL EXAMINATION: Patient alert and oriented x3. Pulse is 99, blood pressure 115/58, respiration 18, temperature 98.5, pulse ox 94% on 4 L. HEENT: Conjunctivae normal. NECK: No jugular venous distention. CARDIOVASCULAR SYSTEM: S1, S2 muffled. RESPIRATORY SYSTEM: Breath sounds diminished at the bases. No rhonchi. No crackles. ABDOMEN: Soft. LEGS: Bilateral leg cellulitis and severe infection present. NERVOUS SYSTEM: No focal deficit. LABS/IMAGING: Chest x-ray personally reviewed; chronic changes, stable. Other labs are noted. ASSESSMENT: 1. Bilateral leg cellulitis, right more than the left, with failure of outpatient treatment with severe pain with possible sepsis, present on admission. 2. Anemia, normocytic; anemia of chronic disease. 3. Change in mental status, metabolic encephalopathy secondary to sepsis, acute. 4. Hyponatremia. 5. Hypokalemia. 6. Possible cirrhosis of the liver. 7. Elevated AST and bilirubin, also hepatitis, alcohol-related. 8. Elevated lactic acid. 9. Chronic obstructive pulmonary disease. 10.Gastroesophageal reflux disease. 11.Pneumonia. 12.Gastrointestinal bleed and peptic ulcer disease. 13.History of multiple transfusions. 14.History of hyperammonemia. 15.History of chronic liver disease. 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 17.FULL CODE. RECOMMENDATIONS AND DISCUSSION: I recommend to continue current medications, continue with the monitoring, symptomatic treatment. Otherwise at this time I would recommend continuing with the antibiotics. Continue with the bronchodilators. Monitor closely. Dr. Arevalo will evaluate the patient on Sunday for possible amputation. DVT prophylaxis. Further recommendations to follow. MMODL / IJN: [id number] / MTDD
[2019-03-14 21:11] LABS: Glucose,Whole Blood 101 mg/dL (75-99)
[2019-03-15 06:13] LABS: Glucose,Whole Blood 75 mg/dL (75-99)
[2019-03-15] MEDS: PANTOPRAZOLE 40 MG TABLET PO SCH ×2 (06:38→17:50)
[2019-03-15] MEDS: METOPROLOL TARTRATE 25 MG TAB PO SCH ×2 (08:01→22:26)
[2019-03-15] MEDS: MULTIVITAMINS, THERA 1 EACH TAB PO SCH (08:01)
[2019-03-15] MEDS: SYMBICORT 160-4.5 MCG INHALER INHALATION SCH ×3 (09:31→20:58)
[2019-03-15] MEDS: IPRATROPIUM-ALBUTEROL 3 ML NEB INHALATION SCH ×4 (09:32→20:46)
[2019-03-15] MEDS ORDERED: LACTATED RINGERS 1,000 ML IV ONE ×2 (09:56)
[2019-03-15] MEDS ORDERED: ROPIVACAINE 5 MG/ML 30 ML VIAL ONE (10:00)
[2019-03-15] MEDS ORDERED: SODIUM CHLORIDE 0.9% 1,000 ML IV ONE ×2 (10:00→11:46)
[2019-03-15] MEDS ORDERED: fentaNYL (PF) 50 MCG/ML 2 ML AMP ONE (10:00)
[2019-03-15] MEDS ORDERED: PHENYLEPHRINE-0.9% NACL SYG 1 MG/10 ML SYRINGE ONE (10:00)
--- NOTE | 2019-03-15 11:16 | P.ANPRN ---
Procedure Note - Anesthesia - Nerve Block Performed Right Other (see comment) Single Time Out Performed: Yes (Femoral) Date of Procedure: 03/15/19 Procedure Start Time: 09:40 Location of Patient: PreOp Indication: Acute Post-Operative Pain, Requested by Surgeon Sedation Type: Awake Preparation: Sterile Prep, Sterile Dressing Position: Left Lateral Catheter: None Needle Types: Pajunk Needle Gauge: 20 Ultrasound used to visualize needle placement: Yes Ultrasound used to observe medication spread: Yes Injectate: 0.5% Ropivacaine (see comment for volume) (15 ml) Blood Aspirated: No Pain Paresthesia on Injection Noted: No Resistance on Injection: Normal Image Stored and Saved: Yes Events: Uneventful and Well Tolerated (Pt contracted with difficult positioning)
--- NOTE | 2019-03-15 11:17 | P.ANPRN ---
Procedure Note - Anesthesia - Nerve Block Performed Right Other (see comment) Single Time Out Performed: Yes (Sciatic - transgluteal) Date of Procedure: 03/15/19 Procedure Start Time: 09:45 Procedure Stop Time: 09:54 Location of Patient: PreOp Indication: Acute Post-Operative Pain, Requested by Surgeon Sedation Type: Awake Preparation: Sterile Prep, Sterile Dressing Position: Left Lateral (pt contracted) Catheter: None Needle Types: Pajunk Needle Gauge: 20 Ultrasound used to visualize needle placement: Yes Ultrasound used to observe medication spread: Yes Injectate: 0.5% Ropivacaine (see comment for volume) (15 ml) Blood Aspirated: No Pain Paresthesia on Injection Noted: No Resistance on Injection: Normal Image Stored and Saved: Yes Events: Uneventful and Well Tolerated
[2019-03-15] MEDS ORDERED: ONDANSETRON 4 MG/2 ML VIAL IVP PRN (11:18)
[2019-03-15] MEDS ORDERED: MORPHINE SULFATE 2 MG/ML SYRINGE IV PRN (11:18)
--- NOTE | 2019-03-15 12:02 | OP ---
OPERATIVE REPORT PREOP DIAGNOSIS: Chronic wound right lower extremity involving the foot, ankle and lower leg with severe peripheral vascular disease. OPERATION PERFORMED: Right above-knee amputation. HISTORY: This patient has history of chronic wound right lower extremity and also patient has a history of COPD and chronic pain. His hip joint is medially rotated from the previous surgery. Patient signed consent for the right above-knee amputation. DESCRIPTION OF PROCEDURE: Brought to the operating room. Under spinal and anesthesia, right leg was prepped and drapes applied in a sterile manner. The patient also has a contracture of the knee joint. After prepping and drapes were applied in usual sterile manner, incision was made above the patella and deepened through skin, fat, and fascia. The anterior compartment muscles were divided until we reached the femur and then medial compartment muscles were divided and the femoral artery and femoral vein was identified and suture ligated with 0-Prolene and also prior to that, greater saphenous vein was ligated with 3-0 silk. Then the lateral compartment muscles were divided. Then the incision was tented posteriorly for the posterior flap deepened through skin fat and fascia. After that, periosteum elevator used to elevate the periosteum from the femur. With the hand saw, we divided the femur. Sciatic nerve was identified and divided and tied with 0- Silk with traction. The bleeding points were also suture ligated. The specimen was removed. The wound was copiously irrigated with hydrogen peroxide and saline. After that, the femur was covered by the anterior and posterior compartment muscles with 2 interrupted 0-Vicryl and the fascia was approximated with 0-Vicryl with interrupted suture and skin was closed with 5-0 Nylon. Dressings applied. The patient tolerated the procedure well. MMODL / IJN: [id number] /
[2019-03-15] MEDS: LACTATED RINGERS 1,000 ML IV SCH (12:54)
--- NOTE | 2019-03-15 12:54 | P.PN ---
Subjective Progress Note Date: 03/15/19 Principal diagnosis: This is 63-year-old white male patient of Dr. Trevino, with past medical history of COPD/emphysema, chronic hypoxic respiratoryi, GERD/reflux, previous episodes of pneumonia, previous episode of GI bleeding, duodenal ulcer, chronic wound on his right heel, severe peripheral vascular disease and patient continues to smoke. Patient given to the hospital per EMS on 03/07/2019 with a complaint of pain in his right lower hurst and right knee, and concern of infection in his right lower extremity. Patient had mild lactic acid elevation at 4.0, was fluid resuscitated, and started on broad-spectrum antibiotics. Patient has had a chronic wound to his right lower extremity for many years, and he has been following with infectious disease and wound Center. He was seen bibasilar surgery, and no intervention is planned at this time. The patient and the family are considering a second opinion. He has been treated with a combination of Zosyn and vancomycin, and his right foot wound cultures are positive for presumptive staph aureus, and blood cultures are positive for Staphylococcus epidermidis. Despite the medical treatment patient is having worsening symptoms of sepsis. Pulmonary consultation is requested for preop clearance for possibility of right foot amputation. In terms of patient's history of COPD, he used to follow with Dr. Kyle in the pulmonary clinic but he has not been seen there for last 2 years. His last PFT in 2017 showed FEV1 of 79% of predicted with DLVA of 36%, and it was felt that his COPD was mostly emphysematous type. He is on home oxygen at 4 L on the regular basis, he is to be on maintenance inhalers, but not recently. He had 2 chest x-rays while inpatient, and both showed stable chronic emphysematous and parenchymal changes without acute pulmonary process. He remains on 4 L of oxygen his pulse ox is 88%, he is mildly dyspneic, but no acute distress, lung sounds reveal decreased breath sounds bilaterally, no major wheezing rhonchi or rales. On 03/13/2019 patient seen in follow-up on selective care unit, he is awake and alert, in no acute distress, seems to be less confused on today's exam. Answering questions appropriately, he is oriented to person, place and the place. A bit more wheezy compared to yesterday's exam, he is working on incentive spirometer, he is achieving [id number] on the today. He remains on oxygen at 3 L, his pulse ox is 93%, no new labs today, remains on IV antibiotics, local wound care to bilateral extremities. Hemodynamically patient is stable, and tentatively patient is scheduled for surgery tomorrow On 03/14/2019 patient seen in follow-up on selective care unit, he is awake and alert, oriented 3, does not appear to be in any acute distress, 5 to is 3 L, with a pulse ox of 90-93%, afebrile, remains on antibiotics, no significant wheezing or congestion today, he is working on incentive spirometer with someone's assistance. Today's labs have been reviewed, white blood cell chronic is 8.9, hemoglobin is 7.6 and patient isn't a speech receive a unit of packed red blood cells, serum sodium is 134, potassium is 4.0, chloride is 109, CO2 is 21, BUN is 13 creatinine 0.52. On 03/15/2019 patient seen in follow-up in the postoperative period after his right rvgwy-oqq-riqy amputation. He is awake, slightly confused, but appears to be in no acute distress. He is on 4 L of oxygen with a pulse ox of 94%, vital signs are stable, he is afebrile, no complaints of shortness of breath, complaints of pain, and patient tolerated procedure or right ohekm-wsc-jizy amputation very well. Objective - Vital Signs Vital signs: Vital Signs Temp 97 F L 03/15/19 11:41 Pulse 80 03/15/19 12:10 Resp 20 03/15/19 12:10 BP 98/54 03/15/19 12:10 Pulse Ox 94 L 03/15/19 12:10 Intake & Output 03/14/19 03/15/19 03/15/19 18:59 06:59 18:59 Intake Total 600 320 200 Output Total 300 625 250 Balance 300 -305 -50 Weight 63 kg Intake: IV 10 200 Invasive Line 4 10 Oral 600 Blood Product 0 310 Rc Cpda-1 Unit 0 310 [id number] Output: Urine 300 625 50 Estimated Blood Loss 200 Other: Voiding Method Indwelling Catheter Indwelling Catheter Indwelling Catheter # Bowel Movements 1 - Exam GENERAL EXAM: Alert, confused, 63-year-old white male, on 4 L of oxygen, with a pulse ox of 93% comfortable in no apparent distress. HEAD: Normocephalic/atraumatic. EYES: Normal reaction of pupils, equal size. Conjunctiva pink, sclera white. NOSE: Clear with pink turbinates. THROAT: No erythema or exudates. NECK: No masses, no JVD, no thyroid enlargement, no adenopathy. CHEST: No chest wall deformity. Symmetrical expansion. LUNGS: Diminished air entry with no crackles, wheeze, rhonchi or dullness. CVS: Regular rate and rhythm, normal S1 and S2, no gallops, no murmurs, no rubs ABDOMEN: Soft, nontender. No hepatosplenomegaly, normal bowel sounds, no guarding or rigidity. EXTREMITIES: No clubbing, 1+ nonpitting left lower extremity edema, and ulcerations and redness, covered with dressings, right eklch-nru-eqhp stump related to right hoaas-mqb-ogtr amputation covered with a dressing, and Hemovac is in place with small amount of sanguinous drainage MUSCULOSKELETAL: Muscle strength and tone normal. SPINE: No scoliosis or deformity SKIN: Redness involving her lower extremity's, right greater than left CENTRAL NERVOUS SYSTEM: Alert and oriented -3. No focal deficits, tone is normal in all 4 extremities. PSYCHIATRIC: Alert and oriented -3. Appropriate affect. Intact judgment and insight. - Labs CBC & Chem 7: 03/13/19 14:59 03/13/19 14:59 Labs: Abnormal Lab Results - Last 24 Hours (Table) 03/13/19 03/14/19 03/14/19 Range/Units 14:59 17:17 21:09 POC Glucose (mg/dL) 125 H 101 H (75-99) mg/dL Crossmatch See Detail Assessment and Plan Plan: Assessment: #1. Sepsis related to right lower leg wounds, with cultures positive for presumptive staph, status post right wkaem-erh-btvs amputation, postop day 0 #2. Gram-positive cocci bacteremia related to the above #3. Chronic poorly healing wounds on right lower extremity #4. Emphysema/COPD, advanced, with chronic hypoxemic respiratory failure. Patient has been lost to follow-up in the pulmonary clinic for last 2 years, but last PFT from 2017 showed FEV1 79%, with decreased diffusion capacity at 34% of predicted #5. Former nicotine dependence, currently in remission #6. GERD/reflux #7. Previous episodes of GI bleeding related to a duodenal ulcer #8. Previous history of pneumonia #9. History of chronic liver disease Plan: Maintain aspiration precautions, continue with nebulized bronchodilators, Symbicort, incentive spirometry, patient was seen in the postoperative period after right alyxb-sgq-srmv amputation, clinically patient is stable, he tolerated procedure very well, we will continue to monitor his condition. Continue with antibiotics per ID service recommendations. I performed a history & physical examination of the patient and discussed their management with my nurse practitioner, Irena Ortiz. I reviewed the nurse practitioner's note and agree with the documented findings and plan of care. Lung sounds are positive for diminished breath sounds. The findings and the impression was discussed with the patient. I attest to the documentation by the nurse practitioner. Time with Patient: Less than 30
[2019-03-15] MEDS ORDERED: LORazepam 2 MG/ML INJ IV PRN ×2 (12:59→13:07)
[2019-03-15 17:27] LABS: Glucose,Whole Blood 139 mg/dL (75-99)
[2019-03-15] MEDS: HYDROcodone/APAP 5-325MG 1 EACH TAB PO PRN ×2 (17:50→22:27)
--- NOTE | 2019-03-15 17:59 | PN ---
PROGRESS NOTE DATE OF SERVICE: 03/15/2019 This 63-year-old gentleman who was admitted with significant infection of the both feet, right more the left, underwent right below-knee amputation by Dr. Arevalo. The patient is confused. Postoperatively patient being closely monitored in telemetry at this time. Vital signs have been a concern. Blood pressure was 100/56, respirations 20. PAST MEDICAL HISTORY: Reviewed. REVIEW OF SYSTEMS: CARDIOVASCULAR SYSTEM: No angina RESPIRATORY: As mentioned earlier. GI: As mentioned earlier. : No dysuria. NERVOUS SYSTEM: Patient is confused. CURRENT MEDICATIONS: Are reviewed include: 1. Acme 5 mg q.4 hours. 2. DuoNeb q.i.d. and p.r.n. 3. Xanax. 4. Symbicort 160/4.5 b.i.d. 5. Rocephin. 6. Ultram. 7. Lopressor. 8. Replacement protocol. 9. Multivitamins. 10.Narcan. 11.Zofran. 12.Protonix. 13.Restoril. PHYSICAL EXAM: Patient is mildly confused, oriented x2. Pulse 82, blood pressure 109/56, respiration 20, temperature normal, pulse ox 94% on 4 L. HEENT: Conjunctivae normal. Oral mucosa moist. NECK: No jugular venous distention. No lymph node enlargement. CARDIOVASCULAR: S1, S2. RESPIRATORY: Diminished breath sounds at the bases. A few scattered rhonchi and crackles. ABDOMEN: Soft. LEGS: Status post right below knee amputation.. NERVOUS SYSTEM: No focal deficits. LAB STUDIES: WBC 8.2, hemoglobin 7.6, sodium 130, potassium 4. Accu-Cheks are noted. Calcium 7.4. ASSESSMENT: 1. Bilateral leg cellulitis, right more than left with failure of outpatient treatment, severe pain and possible sepsis, present on admission. 2. Status post right above-knee amputation. 3. Anemia, normocytic anemia of chronic disease. 4. Change in mental status, metabolic encephalopathy secondary to sepsis, acute. 5. Hyponatremia. 6. Hypokalemia. 7. Possible cirrhosis of the liver. 8. Increased AST, bilirubin, also hepatitis, possibly alcohol-related. 9. Elevated lactic acid. 10.Chronic obstructive pulmonary disease. 11.Gastroesophageal reflux disease. 12.History of pneumonia. 13.History of gastrointestinal bleed and peptic ulcer disease. 14.History of multiple transfusions. 15.History of hyperammonemia. 16.History of chronic liver disease. 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 18.FULL CODE. RECOMMENDATIONS AND DISCUSSION: In this 63-year-old gentleman who presented with multiple complex medical issues, we will monitor the patient closely, continue the current management, symptomatic treatment. Otherwise, monitor the neuro checks closely. The patient is currently on IV antibiotics Rocephin daily and vancomycin. Otherwise cultures are noted. Guarded prognosis because of multiple complex medical issues. Further recommendations to follow. Prognosis guarded. We will follow closely with multiple consultants. MMODL / IJN: [id number] /
[2019-03-15 20:05] LABS: Glucose,Whole Blood 183 mg/dL (75-99)
[2019-03-16 06:26] LABS: Glucose,Whole Blood 114 mg/dL (75-99)
[2019-03-16] MEDS: PANTOPRAZOLE 40 MG TABLET PO SCH ×2 (06:53→17:17)
[2019-03-16] MEDS: HYDROcodone/APAP 5-325MG 1 EACH TAB PO PRN (06:53)
[2019-03-16] MEDS: IPRATROPIUM-ALBUTEROL 3 ML NEB INHALATION SCH ×4 (08:44→20:04)
[2019-03-16] MEDS: SYMBICORT 160-4.5 MCG INHALER INHALATION SCH ×2 (08:46→20:04)
[2019-03-16] MEDS: MULTIVITAMINS, THERA 1 EACH TAB PO SCH (10:02)
[2019-03-16] MEDS: METOPROLOL TARTRATE 25 MG TAB PO SCH ×2 (10:02→21:13)
[2019-03-16 11:50] LABS: Glucose,Whole Blood 126 mg/dL (75-99)
[2019-03-16] MEDS: LACTATED RINGERS 1,000 ML IV SCH (11:59)
--- NOTE | 2019-03-16 12:22 | PN ---
PROGRESS NOTE This is a 63 -year-old gentleman who had a right above-knee amputation done yesterday. On examination today, patient is sitting very comfortably in bed. Dressing is intact. Minimal drainage from the drain. We will leave the dressing on for another 48 hours. Patient is stable. MMODL / IJN: [id number] /
--- NOTE | 2019-03-16 13:13 | P.PN ---
Subjective Progress Note Date: 03/16/19 Principal diagnosis: This is 63-year-old white male patient of Dr. Trevino, with past medical history of COPD/emphysema, chronic hypoxic respiratoryi, GERD/reflux, previous episodes of pneumonia, previous episode of GI bleeding, duodenal ulcer, chronic wound on his right heel, severe peripheral vascular disease and patient continues to smoke. Patient given to the hospital per EMS on 03/07/2019 with a complaint of pain in his right lower hurst and right knee, and concern of infection in his right lower extremity. Patient had mild lactic acid elevation at 4.0, was fluid resuscitated, and started on broad-spectrum antibiotics. Patient has had a chronic wound to his right lower extremity for many years, and he has been following with infectious disease and wound [facility]. He was seen bibasilar surgery, and no intervention is planned at this time. The patient and the family are considering a second opinion. He has been treated with a combination of Zosyn and vancomycin, and his right foot wound cultures are positive for presumptive staph aureus, and blood cultures are positive for Staphylococcus epidermidis. Despite the medical treatment patient is having worsening symptoms of sepsis. Pulmonary consultation is requested for preop clearance for possibility of right foot amputation. In terms of patient's history of COPD, he used to follow with Dr. Kyle in the pulmonary clinic but he has not been seen there for last 2 years. His last PFT in 2017 showed FEV1 of 79% of predicted with DLVA of 36%, and it was felt that his COPD was mostly emphysematous type. He is on home oxygen at 4 L on the regular basis, he is to be on maintenance inhalers, but not recently. He had 2 chest x-rays while inpatient, and both showed stable chronic emphysematous and parenchymal changes without acute pulmonary process. He remains on 4 L of oxygen his pulse ox is 88%, he is mildly dyspneic, but no acute distress, lung sounds reveal decreased breath sounds bilaterally, no major wheezing rhonchi or rales. On 03/13/2019 patient seen in follow-up on selective care unit, he is awake and alert, in no acute distress, seems to be less confused on today's exam. Answering questions appropriately, he is oriented to person, place and the place. A bit more wheezy compared to yesterday's exam, he is working on incentive spirometer, he is achieving [id number] on the today. He remains on oxygen at 3 L, his pulse ox is 93%, no new labs today, remains on IV antibiotics, local wound care to bilateral extremities. Hemodynamically patient is stable, and tentatively patient is scheduled for surgery tomorrow On 03/14/2019 patient seen in follow-up on selective care unit, he is awake and alert, oriented 3, does not appear to be in any acute distress, 5 to is 3 L, with a pulse ox of 90-93%, afebrile, remains on antibiotics, no significant wheezing or congestion today, he is working on incentive spirometer with someone's assistance. Today's labs have been reviewed, white blood cell chronic is 8.9, hemoglobin is 7.6 and patient isn't a speech receive a unit of packed red blood cells, serum sodium is 134, potassium is 4.0, chloride is 109, CO2 is 21, BUN is 13 creatinine 0.52. On 03/15/2019 patient seen in follow-up in the postoperative period after his right bspil-ssx-oveg amputation. He is awake, slightly confused, but appears to be in no acute distress. He is on 4 L of oxygen with a pulse ox of 94%, vital signs are stable, he is afebrile, no complaints of shortness of breath, complaints of pain, and patient tolerated procedure or right jmmkx-bbx-kqks amputation very well. On 03/16/2019 patient is seen in follow-up on selective care unit. This is postoperative day 1 status post right ceenp-owp-wkla amputation. Patient has done very well after the surgery, is having some more pain today but no acute distress. Complains of shortness of breath, he is on 3 L of oxygen with a pulse ox of 93%, afebrile, hemodynamically stable. Lung sounds are diminished, with no significant rhonchi or wheezing. No new labs today. No new chest x-rays, continues on nebulized bronchodilators, IV Rocephin, and vancomycin, he is been afebrile. Objective - Vital Signs Vital signs: Vital Signs Temp 98.1 F 03/16/19 00:00 Pulse 92 03/16/19 11:50 Resp 16 03/16/19 00:00 BP 116/57 03/16/19 00:00 Pulse Ox 93 L 03/16/19 00:00 Intake & Output 03/15/19 03/16/19 03/16/19 18:59 06:59 18:59 Intake Total 436 480 118 Output Total 250 150 Balance 186 330 118 Weight 50 kg Intake: IV 200 Oral 236 480 118 Output: Urine 50 150 Estimated Blood Loss 200 Other: Voiding Method Indwelling Catheter Indwelling Catheter Indwelling Catheter # Voids 0 - Exam GENERAL EXAM: Alert, confused, 63-year-old white male, on 4 L of oxygen, with a pulse ox of 93% comfortable in no apparent distress. HEAD: Normocephalic/atraumatic. EYES: Normal reaction of pupils, equal size. Conjunctiva pink, sclera white. NOSE: Clear with pink turbinates. THROAT: No erythema or exudates. NECK: No masses, no JVD, no thyroid enlargement, no adenopathy. CHEST: No chest wall deformity. Symmetrical expansion. LUNGS: Diminished air entry with no crackles, wheeze, rhonchi or dullness. CVS: Regular rate and rhythm, normal S1 and S2, no gallops, no murmurs, no rubs ABDOMEN: Soft, nontender. No hepatosplenomegaly, normal bowel sounds, no guarding or rigidity. EXTREMITIES: No clubbing, 1+ nonpitting left lower extremity edema, and ulcerations and redness, covered with dressings, right qzfnc-smx-iscg stump r elated to right zrahs-qog-eqly amputation covered with a dressing, and Hemovac is in place with small amount of sanguinous drainage MUSCULOSKELETAL: Muscle strength and tone normal. SPINE: No scoliosis or deformity SKIN: Redness involving her lower extremity's, right greater than left CENTRAL NERVOUS SYSTEM: Alert and oriented -3. No focal deficits, tone is normal in all 4 extremities. PSYCHIATRIC: Alert and oriented -3. Appropriate affect. Intact judgment and insight. - Labs CBC & Chem 7: 03/13/19 14:59 03/13/19 14:59 Labs: Abnormal Lab Results - Last 24 Hours (Table) 03/15/19 03/15/19 03/16/19 Range/Units 17:26 20:04 06:26 POC Glucose (mg/dL) 139 H 183 H 114 H (75-99) mg/dL 03/16/19 Range/Units 11:49 POC Glucose (mg/dL) 126 H (75-99) mg/dL Assessment and Plan Plan: Assessment: #1. Sepsis related to right lower leg wounds, with cultures positive for presumptive staph, status post right ayqge-rbg-kxcq amputation, postop day 1 #2. Gram-positive cocci bacteremia related to the above #3. Chronic poorly healing wounds on right lower extremity #4. Emphysema/COPD, advanced, with chronic hypoxemic respiratory failure. Patient has been lost to follow-up in the pulmonary clinic for last 2 years, but last PFT from 2017 showed FEV1 79%, with decreased diffusion capacity at 34% of predicted #5. Former nicotine dependence, currently in remission #6. GERD/reflux #7. Previous episodes of GI bleeding related to a duodenal ulcer #8. Previous history of pneumonia #9. History of chronic liver disease Plan: Patient is doing very well, hemodynamically stable, no combines of shortness of breath, he remains on his 4 L of oxygen, maintaining stable oxygenation, maintain aspiration precautions, continue with bronchodilators, we'll order follow-up blood work for today and tomorrow, no acute events overnight, his pain is reasonably controlled, no fever or chills, continue antibiotics as per ID service recommendations. I performed a history & physical examination of the patient and discussed their management with my nurse practitioner, Irena Ortiz. I reviewed the nurse practitioner's note and agree with the documented findings and plan of care. Lung sounds are positive for diminished breath sounds. The findings and the impression was discussed with the patient. I attest to the documentation by the nurse practitioner. Time with Patient: Less than 30
[2019-03-16 14:47] LABS: Anisocytosis Moderate; HCT 24.8 % (39.0-53.0); HGB 7.4 gm/dL (13.0-17.5); Hypochromasia Marked; MCH 29.7 pg (25.0-35.0); MCHC 29.7 g/dL (31.0-37.0); MCV 100.1 fL (80.0-100.0); Macrocytosis Moderate; Mean Platelet Volume 8.5; Platelet Count 115 k/uL (150-450); Poikilocytosis Slight; RBC 2.48 m/uL (4.30-5.90); RDW 20.6 % (11.5-15.5); WBC 9.8 k/uL (3.8-10.6)
[2019-03-16 14:50] LABS: African American GFR (CKD) >90 (>60 ml/min/1.73 sqM); Anion Gap 1 mmol/L; Blood Urea Nitrogen 18 mg/dL (9-20); Calcium 7.3 mg/dL (8.4-10.2); Carbon Dioxide 23 mmol/L (22-30); Chloride 110 mmol/L (98-107); Glucose 145 mg/dL (74-99); Non-African American GFR(CKD) >90 (>60 ml/min/1.73 sqM); Potassium 4.2 mmol/L (3.5-5.1); Sodium 134 mmol/L (137-145)
[2019-03-16 17:50] LABS: Glucose,Whole Blood 109 mg/dL (75-99)
--- NOTE | 2019-03-16 19:44 | XR ---
EXAMINATION TYPE: XR chest 1V portable DATE OF EXAM: 03/16/2019 COMPARISON: Chest x-ray 03/08/2019 HISTORY: Congestive heart failure TECHNIQUE: Single frontal view of the chest is obtained. FINDINGS: New wedge-shaped opacification at the right lung base. No focal consolidation of the left lung. Inter stitial prominence redemonstrated. Cardiac silhouette is stable in size. No pulmonary vascular conges tion. Osseous structures are intact. IMPRESSION: New wedge-shaped right lower lung opacity may relate to atelectasis however airspace con solidation is not excluded.
--- NOTE | 2019-03-16 20:34 | PN ---
PROGRESS NOTE DATE OF SERVICE: 03/16/2019 This 63-year-old gentleman who was admitted with bilateral leg cellulitis, right more the left with failure of outpatient treatment is being closely monitored. No chest pain. No palpitations. No fever. The patient underwent above-knee amputation on the right. Dr. Arevalo is following the patient closely. Also noted, the patient is hypoxic. EXAM: Alert and oriented x2. Pulse 82, blood pressure 130/59. Respirations 20. Temperature normal. Pulse ox 86 percent on 2 L. HEENT is conjunctivae normal. NECK: No JVD. CARDIOVASCULAR: S1, S2 muffled. RESPIRATORY: Breath sounds diminished in the bases. PAST MEDICAL HISTORY: Reviewed. REVIEW OF SYSTEMS: Cardiovascular: As mentioned earlier. RESPIRATORY: As mentioned earlier. GI: As mentioned earlier. : No dysuria. CENTRAL NERVOUS SYSTEM: No numbness or weakness. CURRENT MEDICATIONS: Noted. PHYSICAL EXAM: Patient is slightly drowsy. Pulse is 82. Blood pressure 120/59. Respirations 20. Temp is normal. Pulse ox 86 percent on 2 L. HEENT: Conjunctivae normal. NECK: No JVD. CARDIOVASCULAR: S1, S2 muffled. RESPIRATION: Breath sounds diminished in the bases. Scattered rhonchi and crackles. ABDOMEN: Soft, nontender. LEGS: Status post right above-knee amputation. NERVOUS SYSTEM: No focal deficits. LABS: WBC 9.2, hemoglobin 7.4, platelets 115. Sodium 130, potassium 4.2, and calcium 7.3. ASSESSMENT: 1. Bilateral leg cellulitis, right more the left with failure of outpatient treatment, severe pain and possible sepsis, present on admission. 2. Status post right above -knee amputation postop day number two. 3. Anemia, normocytic anemia of chronic disease. 4. Thrombocytopenia. 5. Hyponatremia. 6. Change in mental status, metabolic encephalopathy secondary to sepsis, acute. 7. Hyponatremia. 8. Hypokalemia. 9. Possible cirrhosis of the liver. 10.Increased AST, bilirubin, also hepatitis possibly alcohol-related. 11.Hypocalcemia. 12.Elevated lactic acid. 13.Chronic obstructive pulmonary disease. 14.Gastroesophageal reflux disease. 15.History of pneumonia. 16.History of gastrointestinal bleed, peptic ulcer disease. 17.History of multiple transfusions. 18.History of hyperammonemia. 19.History of chronic liver disease. 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 21.FULL CODE. RECOMMENDATIONS AND DISCUSSION: Recommend to continue current medications, continue monitoring, management and symptomatic treatment. Patient is slightly drowsy today. I would recommend continue with the current medications and repeat labs are ordered. I would also recommend STAT ammonia. Otherwise, broad-spectrum IV antibiotics also has been recommended. The prognosis extremely guarded because of multiple complex medical issues. We will also monitor the PT/INR as well. Guarded prognosis. Further recommendations to follow. MMODL / IJN: [id number] /
[2019-03-16 20:38] LABS: Glucose,Whole Blood 198 mg/dL (75-99)
[2019-03-17 01:17] LABS: Anisocytosis Moderate; HGB 7.2 gm/dL (13.0-17.5); Hypochromasia Marked; MCH 29.7 pg (25.0-35.0); MCHC 30.2 g/dL (31.0-37.0); MCV 98.2 fL (80.0-100.0); Macrocytosis Moderate; Mean Platelet Volume 7.5; Platelet Count 158 k/uL (150-450); Poikilocytosis Slight; RBC 2.44 m/uL (4.30-5.90); RDW 21.2 % (11.5-15.5); WBC 9.6 k/uL (3.8-10.6)
[2019-03-17 02:27] LABS: African American GFR (CKD) >90 (>60 ml/min/1.73 sqM); Anion Gap 3 mmol/L; Blood Urea Nitrogen 16 mg/dL (9-20); Calcium 7.4 mg/dL (8.4-10.2); Carbon Dioxide 23 mmol/L (22-30); Chloride 109 mmol/L (98-107); Glucose 129 mg/dL (74-99); Non-African American GFR(CKD) >90 (>60 ml/min/1.73 sqM); Potassium 4.6 mmol/L (3.5-5.1); Sodium 135 mmol/L (137-145)
[2019-03-17] MEDS: HYDROcodone/APAP 5-325MG 1 EACH TAB PO PRN ×3 (05:59→17:27)
[2019-03-17] MEDS: PANTOPRAZOLE 40 MG TABLET PO SCH ×2 (05:59→17:27)
[2019-03-17 06:11] LABS: Glucose,Whole Blood 157 mg/dL (75-99)
[2019-03-17 06:14] LABS: Anisocytosis Moderate; HCT 23.2 % (39.0-53.0); HGB 7.1 gm/dL (13.0-17.5); Hypochromasia Marked; MCH 30.1 pg (25.0-35.0); MCHC 30.4 g/dL (31.0-37.0); MCV 98.8 fL (80.0-100.0); Macrocytosis Moderate; Mean Platelet Volume 7.1; Platelet Count 136 k/uL (150-450); Poikilocytosis Slight; RBC 2.35 m/uL (4.30-5.90); RDW 21.4 % (11.5-15.5); WBC 9.2 k/uL (3.8-10.6)
[2019-03-17 06:16] LABS: INR 1.5 (<1.2); Prothrombin Time 15.5 sec (9.0-12.0)
[2019-03-17 06:21] LABS: African American GFR (CKD) >90 (>60 ml/min/1.73 sqM); Anion Gap 2 mmol/L; Blood Urea Nitrogen 16 mg/dL (9-20); Calcium 7.2 mg/dL (8.4-10.2); Carbon Dioxide 24 mmol/L (22-30); Chloride 110 mmol/L (98-107); Glucose 101 mg/dL (74-99); Non-African American GFR(CKD) >90 (>60 ml/min/1.73 sqM); Potassium 4.4 mmol/L (3.5-5.1); Sodium 136 mmol/L (137-145)
[2019-03-17 06:48] LABS: Band Neutrophils % 3 %; Basophils # (M) 0.09 k/uL (0-0.2); Eosinophils # (M) 0.09 k/uL (0-0.7); Lymphocytes # (M) 0.28 k/uL (1.0-4.8); Monocytes # (M) 0.55 k/uL (0-1.0); Neutrophils % (M) 88 %; Nucleated Red Blood Cells 0 /100 WBC (0-0); Total Cells Counted 200
[2019-03-17 06:50] LABS: Polychromasia Present; Target Cells Present
[2019-03-17] MEDS: SYMBICORT 160-4.5 MCG INHALER INHALATION SCH ×2 (07:15→19:48)
[2019-03-17] MEDS: IPRATROPIUM-ALBUTEROL 3 ML NEB INHALATION SCH ×4 (07:15→19:48)
[2019-03-17] MEDS: METOPROLOL TARTRATE 25 MG TAB PO SCH ×2 (09:21→21:01)
[2019-03-17] MEDS: MULTIVITAMINS, THERA 1 EACH TAB PO SCH (09:21)
[2019-03-17] MEDS: LACTATED RINGERS 1,000 ML IV SCH (09:22)
[2019-03-17 12:01] LABS: Glucose,Whole Blood 151 mg/dL (75-99)
--- NOTE | 2019-03-17 12:10 | P.PN ---
Subjective Patient resting in bed states he does have some pain but manageable. Continues with consultation with cardiology and pulmonology post amputation of right txhmm-ojg-ytit amputation Objective - Vital Signs Vital signs: Vital Signs Temp 98.6 F 03/17/19 11:25 Pulse 93 03/17/19 11:25 Resp 20 03/17/19 11:25 BP 121/59 03/17/19 11:25 Pulse Ox 91 L 03/17/19 11:25 Intake & Output 03/16/19 03/17/19 03/17/19 18:59 06:59 18:59 Intake Total 118 236 420 Output Total 450 250 Balance -332 -14 420 Intake: Oral 118 236 420 Output: Drainage 30 Right Lower Thigh 30 Urine 450 220 Other: Voiding Method Indwelling Catheter Indwelling Catheter Indwelling Catheter # Bowel Movements 1 - Constitutional General appearance: Present: mild distress - EENT Eyes: Present: PERRLA Ears: bilateral: normal - Neck Neck: Present: normal ROM - Respiratory Respiratory: bilateral: rhonchi - Cardiovascular Rhythm: regular Abnormal Heart Sounds: Present: systolic murmur - Gastrointestinal General gastrointestinal: Present: soft - Integumentary Integumentary Comment(s): Left lower extremity Integumentary: Present: cellulitis, normal - Neurologic Neurologic: Present: CNII-XII intact - Musculoskeletal Musculoskeletal: Present: generalized weakness - Labs CBC & Chem 7: 03/17/19 05:37 03/17/19 05:37 Labs: Abnormal Lab Results - Last 24 Hours (Table) 03/16/19 03/16/19 03/16/19 Range/Units 14:10 14:10 17:48 RBC 2.48 L (4.30-5.90) m/uL Hgb 7.4 L (13.0-17.5) gm/dL Hct 24.8 L (39.0-53.0) % MCV 100.1 H (80.0-100.0) fL MCHC 29.7 L (31.0-37.0) g/dL RDW 20.6 H (11.5-15.5) % Plt Count 115 L (150-450) k/uL Neutrophils # (Manual) (1.3-7.7) k/uL Lymphocytes # (Manual) (1.0-4.8) k/uL PT (9.0-12.0) sec INR (<1.2) Sodium 134 L (137-145) mmol/L Chloride 110 H (98-107) mmol/L Creatinine 0.56 L (0.66-1.25) mg/dL Glucose 145 H (74-99) mg/dL POC Glucose (mg/dL) 109 H (75-99) mg/dL Calcium 7.3 L (8.4-10.2) mg/dL Ammonia (<30) umol/L 03/16/19 03/16/19 03/17/19 Range/Units 19:00 20:36 01:03 RBC 2.44 L (4.30-5.90) m/uL Hgb 7.2 L (13.0-17.5) gm/dL Hct 24.0 L (39.0-53.0) % MCV (80.0-100.0) fL MCHC 30.2 L (31.0-37.0) g/dL RDW 21.2 H (11.5-15.5) % Plt Count (150-450) k/uL Neutrophils # (Manual) (1.3-7.7) k/uL Lymphocytes # (Manual) (1.0-4.8) k/uL PT (9.0-12.0) sec INR (<1.2) Sodium (137-145) mmol/L Chloride (98-107) mmol/L Creatinine (0.66-1.25) mg/dL Glucose (74-99) mg/dL POC Glucose (mg/dL) 198 H (75-99) mg/dL Calcium (8.4-10.2) mg/dL Ammonia 37 H (<30) umol/L 03/17/19 03/17/19 03/17/19 Range/Units 02:00 05:37 05:37 RBC 2.35 L (4.30-5.90) m/uL Hgb 7.1 L (13.0-17.5) gm/dL Hct 23.2 L (39.0-53.0) % MCV (80.0-100.0) fL MCHC 30.4 L (31.0-37.0) g/dL RDW 21.4 H (11.5-15.5) % Plt Count 136 L (150-450) k/uL Neutrophils # (Manual) 8.30 H (1.3-7.7) k/uL Lymphocytes # (Manual) 0.28 L (1.0-4.8) k/uL PT (9.0-12.0) sec INR (<1.2) Sodium 135 L 136 L (137-145) mmol/L Chloride 109 H 110 H (98-107) mmol/L Creatinine 0.54 L 0.55 L (0.66-1.25) mg/dL Glucose 129 H 101 H (74-99) mg/dL POC Glucose (mg/dL) (75-99) mg/dL Calcium 7.4 L 7.2 L (8.4-10.2) mg/dL Ammonia (<30) umol/L 03/17/19 03/17/19 03/17/19 Range/Units 05:37 06:09 11:59 RBC (4.30-5.90) m/uL Hgb (13.0-17.5) gm/dL Hct (39.0-53.0) % MCV (80.0-100.0) fL MCHC (31.0-37.0) g/dL RDW (11.5-15.5) % Plt Count (150-450) k/uL Neutrophils # (Manual) (1.3-7.7) k/uL Lymphocytes # (Manual) (1.0-4.8) k/uL PT 15.5 H (9.0-12.0) sec INR 1.5 H (<1.2) Sodium (137-145) mmol/L Chloride (98-107) mmol/L Creatinine (0.66-1.25) mg/dL Glucose (74-99) mg/dL POC Glucose (mg/dL) 157 H 151 H (75-99) mg/dL Calcium (8.4-10.2) mg/dL Ammonia (<30) umol/L - Imaging and Cardiology Chest x-ray: report reviewed Assessment and Plan Plan: Assessment Bilateral leg cellulitis with sepsis gram-positive cocci Post fsabm-ikl-zgmv amputation Anemia normocytic anemia chronic disease Metabolic encephalopathy secondary to sepsis Hyponatremia hypokalemia Severe peripheral vascular disease Cirrhosis Elevated lactic acid Chronic COPD GERD Plan Continue consultation with cardiology pulmonology and infectious disease vascular surgeon
--- NOTE | 2019-03-17 14:20 | P.PN ---
Subjective Progress Note Date: 03/17/19 Principal diagnosis: This is 63-year-old white male patient of Dr. Trevino, with past medical history of COPD/emphysema, chronic hypoxic respiratoryi, GERD/reflux, previous episodes of pneumonia, previous episode of GI bleeding, duodenal ulcer, chronic wound on his right heel, severe peripheral vascular disease and patient continues to smoke. Patient given to the hospital per EMS on 03/07/2019 with a complaint of pain in his right lower hurst and right knee, and concern of infection in his right lower extremity. Patient had mild lactic acid elevation at 4.0, was fluid resuscitated, and started on broad-spectrum antibiotics. Patient has had a chronic wound to his right lower extremity for many years, and he has been following with infectious disease and wound Center. He was seen bibasilar surgery, and no intervention is planned at this time. The patient and the family are considering a second opinion. He has been treated with a combination of Zosyn and vancomycin, and his right foot wound cultures are positive for presumptive staph aureus, and blood cultures are positive for Staphylococcus epidermidis. Despite the medical treatment patient is having worsening symptoms of sepsis. Pulmonary consultation is requested for preop clearance for possibility of right foot amputation. In terms of patient's history of COPD, he used to follow with Dr. Kyle in the pulmonary clinic but he has not been seen there for last 2 years. His last PFT in 2017 showed FEV1 of 79% of predicted with DLVA of 36%, and it was felt that his COPD was mostly emphysematous type. He is on home oxygen at 4 L on the regular basis, he is to be on maintenance inhalers, but not recently. He had 2 chest x-rays while inpatient, and both showed stable chronic emphysematous and parenchymal changes without acute pulmonary process. He remains on 4 L of oxygen his pulse ox is 88%, he is mildly dyspneic, but no acute distress, lung sounds reveal decreased breath sounds bilaterally, no major wheezing rhonchi or rales. On 03/13/2019 patient seen in follow-up on selective care unit, he is awake and alert, in no acute distress, seems to be less confused on today's exam. Answering questions appropriately, he is oriented to person, place and the place. A bit more wheezy compared to yesterday's exam, he is working on incentive spirometer, he is achieving [id number] on the today. He remains on oxygen at 3 L, his pulse ox is 93%, no new labs today, remains on IV antibiotics, local wound care to bilateral extremities. Hemodynamically patient is stable, and tentatively patient is scheduled for surgery tomorrow On 03/14/2019 patient seen in follow-up on selective care unit, he is awake and alert, oriented 3, does not appear to be in any acute distress, 5 to is 3 L, with a pulse ox of 90-93%, afebrile, remains on antibiotics, no significant wheezing or congestion today, he is working on incentive spirometer with someone's assistance. Today's labs have been reviewed, white blood cell chronic is 8.9, hemoglobin is 7.6 and patient isn't a speech receive a unit of packed red blood cells, serum sodium is 134, potassium is 4.0, chloride is 109, CO2 is 21, BUN is 13 creatinine 0.52. On 03/15/2019 patient seen in follow-up in the postoperative period after his right uvtrj-cjo-fpbz amputation. He is awake, slightly confused, but appears to be in no acute distress. He is on 4 L of oxygen with a pulse ox of 94%, vital signs are stable, he is afebrile, no complaints of shortness of breath, complaints of pain, and patient tolerated procedure or right tryby-shh-dvqe amputation very well. On 03/16/2019 patient is seen in follow-up on selective care unit. This is postoperative day 1 status post right nlmby-zlo-uils amputation. Patient has done very well after the surgery, is having some more pain today but no acute distress. Complains of shortness of breath, he is on 3 L of oxygen with a pulse ox of 93%, afebrile, hemodynamically stable. Lung sounds are diminished, with no significant rhonchi or wheezing. No new labs today. No new chest x-rays, continues on nebulized bronchodilators, IV Rocephin, and vancomycin, he is been afebrile. On 03/17/2019 patient seen in follow-up on selective care unit, she is calm and comfortable, resting in bed currently on 6 L of oxygen with a pulse ox of 91- 92%, he is afebrile, hemodynamically stable, breathing is nonlabored, patient has a few scattered wheezes, and rhonchi, but no fever or chills, his breathing not any worse than in the preop period, he needs a lot of encouragement and assistance with utilizing his incentive spirometer, he is on nebulized bronchodilators. Today's labs have been reviewed, white blood cell count is 9.2, hemoglobin 7.1, today's INR is 1.5, sodium is 136, potassium is 4.4, c hloride is 110, CO2 is 24, BUN is 16, creatinine 0.5. Patient remains on Rocephin and vancomycin. Patient is intermittently confused. Having slightly more pain today, but no acute distress. Right stump is covered with a dressing. Wound care to left lower extremity Objective - Vital Signs Vital signs: Vital Signs Temp 98.6 F 03/17/19 11:25 Pulse 93 03/17/19 11:25 Resp 20 03/17/19 11:25 BP 121/59 03/17/19 11:25 Pulse Ox 91 L 03/17/19 11:25 Intake & Output 03/16/19 03/17/19 03/17/19 18:59 06:59 18:59 Intake Total 118 236 630 Output Total 450 250 Balance -332 -14 630 Intake: IV 210 Lactated Ringers 1,000 ml 160 @ 20 mls/hr IV .Q24H [facility] Rx#:[id number] cefTRIAXone 2 gm In 50 Sodium Chloride 0.9% 50 ml @ 100 mls/hr IVPB Q24HR [facility] Rx#:[id number] Oral 118 236 420 Output: Drainage 30 Right Lower Thigh 30 Urine 450 220 Other: Voiding Method Indwelling Catheter Indwelling Catheter Indwelling Catheter # Bowel Movements 1 - Exam GENERAL EXAM: Alert, confused, 63-year-old white male, on 6 L of oxygen, with a pulse ox of 92% comfortable in no apparent distress. HEAD: Normocephalic/atraumatic. EYES: Normal reaction of pupils, equal size. Conjunctiva pink, sclera white. NOSE: Clear with pink turbinates. THROAT: No erythema or exudates. NECK: No masses, no JVD, no thyroid enlargement, no adenopathy. CHEST: No chest wall deformity. Symmetrical expansion. LUNGS: Diminished air entry with some scattered wheezes CVS: Regular rate and rhythm, normal S1 and S2, no gallops, no murmurs, no rubs ABDOMEN: Soft, nontender. No hepatosplenomegaly, normal bowel sounds, no guarding or rigidity. EXTREMITIES: No clubbing, 1+ nonpitting left lower extremity edema, and ulcerations and redness, covered with dressings, right ptute-efb-jhwf stump related to right cwvvq-knf-ives amputation covered with a dressing, and Hemovac is in place with small amount of sanguinous drainage MUSCULOSKELETAL: Muscle strength and tone normal. SPINE: No scoliosis or deformity SKIN: Redness involving her lower extremity's, right greater than left CENTRAL NERVOUS SYSTEM: Alert and oriented -3. No focal deficits, tone is normal in all 4 extremities. PSYCHIATRIC: Alert and oriented -3. Appropriate affect. Intact judgment and insight. - Labs CBC & Chem 7: 03/17/19 05:37 03/17/19 05:37 Labs: Abnormal Lab Results - Last 24 Hours (Table) 03/16/19 03/16/19 03/16/19 Range/Units 14:10 14:10 17:48 RBC 2.48 L (4.30-5.90) m/uL Hgb 7.4 L (13.0-17.5) gm/dL Hct 24.8 L (39.0-53.0) % MCV 100.1 H (80.0-100.0) fL MCHC 29.7 L (31.0-37.0) g/dL RDW 20.6 H (11.5-15.5) % Plt Count 115 L (150-450) k/uL Neutrophils # (Manual) (1.3-7.7) k/uL Lymphocytes # (Manual) (1.0-4.8) k/uL PT (9.0-12.0) sec INR (<1.2) Sodium 134 L (137-145) mmol/L Chloride 110 H (98-107) mmol/L Creatinine 0.56 L (0.66-1.25) mg/dL Glucose 145 H (74-99) mg/dL POC Glucose (mg/dL) 109 H (75-99) mg/dL Calcium 7.3 L (8.4-10.2) mg/dL Ammonia (<30) umol/L 03/16/19 03/16/19 03/17/19 Range/Units 19:00 20:36 01:03 RBC 2.44 L (4.30-5.90) m/uL Hgb 7.2 L (13.0-17.5) gm/dL Hct 24.0 L (39.0-53.0) % MCV (80.0-100.0) fL MCHC 30.2 L (31.0-37.0) g/dL RDW 21.2 H (11.5-15.5) % Plt Count (150-450) k/uL Neutrophils # (Manual) (1.3-7.7) k/uL Lymphocytes # (Manual) (1.0-4.8) k/uL PT (9.0-12.0) sec INR (<1.2) Sodium (137-145) mmol/L Chloride (98-107) mmol/L Creatinine (0.66-1.25) mg/dL Glucose (74-99) mg/dL POC Glucose (mg/dL) 198 H (75-99) mg/dL Calcium (8.4-10.2) mg/dL Ammonia 37 H (<30) umol/L 03/17/19 03/17/19 03/17/19 Range/Units 02:00 05:37 05:37 RBC 2.35 L (4.30-5.90) m/uL Hgb 7.1 L (13.0-17.5) gm/dL Hct 23.2 L (39.0-53.0) % MCV (80.0-100.0) fL MCHC 30.4 L (31.0-37.0) g/dL RDW 21.4 H (11.5-15.5) % Plt Count 136 L (150-450) k/uL Neutrophils # (Manual) 8.30 H (1.3-7.7) k/uL Lymphocytes # (Manual) 0.28 L (1.0-4.8) k/uL PT (9.0-12.0) sec INR (<1.2) Sodium 135 L 136 L (137-145) mmol/L Chloride 109 H 110 H (98-107) mmol/L Creatinine 0.54 L 0.55 L (0.66-1.25) mg/dL Glucose 129 H 101 H (74-99) mg/dL POC Glucose (mg/dL) (75-99) mg/dL Calcium 7.4 L 7.2 L (8.4-10.2) mg/dL Ammonia (<30) umol/L 03/17/19 03/17/19 03/17/19 Range/Units 05:37 06:09 11:59 RBC (4.30-5.90) m/uL Hgb (13.0-17.5) gm/dL Hct (39.0-53.0) % MCV (80.0-100.0) fL MCHC (31.0-37.0) g/dL RDW (11.5-15.5) % Plt Count (150-450) k/uL Neutrophils # (Manual) (1.3-7.7) k/uL Lymphocytes # (Manual) (1.0-4.8) k/uL PT 15.5 H (9.0-12.0) sec INR 1.5 H (<1.2) Sodium (137-145) mmol/L Chloride (98-107) mmol/L Creatinine (0.66-1.25) mg/dL Glucose (74-99) mg/dL POC Glucose (mg/dL) 157 H 151 H (75-99) mg/dL Calcium (8.4-10.2) mg/dL Ammonia (<30) umol/L Assessment and Plan Plan: Assessment: #1. Sepsis related to right lower leg wounds, with cultures positive for presumptive staph, status post right srsej-ttq-ioqb amputation, postop day 2 #2. Gram-positive cocci bacteremia related to the above #3. Chronic poorly healing wounds on right lower extremity #4. Emphysema/COPD, advanced, with chronic hypoxemic respiratory failure. Patient has been lost to follow-up in the pulmonary clinic for last 2 years, but last PFT from 2017 showed FEV1 79%, with decreased diffusion capacity at 34% of predicted #5. Former nicotine dependence, currently in remission #6. GERD/reflux #7. Previous episodes of GI bleeding related to a duodenal ulcer #8. Previous history of pneumonia #9. History of chronic liver disease Plan: Maintain aspiration precautions, continue with nebulized bronchodilators, encourage deep breathing and coughing, continue Symbicort, continue antibiotics per ID service recommendations. Patient has done well from pulmonary perspective during and after surgery, needs to continue to work on his pulmonary toileting. We'll continue to follow I performed a history & physical examination of the patient and discussed their management with my nurse practitioner, Irena Ortiz. I reviewed the nurse practitioner's note and agree with the documented findings and plan of care. Lung sounds are positive for diminished breath sounds. The findings and the impression was discussed with the patient. I attest to the documentation by the nurse practitioner. Time with Patient: Less than 30
[2019-03-17] MEDS: MAGNESIUM SULFATE-D5W PMX 1 GM in DEXTROSE/WATER 1 100ML.BAG IVPB SCH ×2 (16:04→17:16)
[2019-03-17 16:52] LABS: Glucose,Whole Blood 134 mg/dL (75-99)
[2019-03-17] MEDS ORDERED: FUROSEMIDE 10 MG/ML 2 ML VIAL IV STA (18:17)
[2019-03-17 20:42] LABS: Glucose,Whole Blood 223 mg/dL (75-99)
[2019-03-18 06:03] LABS: Anisocytosis Moderate; HCT 23.9 % (39.0-53.0); HGB 7.2 gm/dL (13.0-17.5); Hypochromasia Marked; MCH 29.9 pg (25.0-35.0); MCHC 30.1 g/dL (31.0-37.0); MCV 99.3 fL (80.0-100.0); Macrocytosis Moderate; Platelet Count 147 k/uL (150-450); Poikilocytosis Slight; RBC 2.41 m/uL (4.30-5.90); RDW 21.4 % (11.5-15.5); WBC 8.2 k/uL (3.8-10.6)
[2019-03-18 06:16] LABS: INR 1.5 (<1.2); Prothrombin Time 14.9 sec (9.0-12.0)
[2019-03-18 06:34] LABS: ALT 49 U/L (21-72); AST 100 U/L (17-59); African American GFR (CKD) >90 (>60 ml/min/1.73 sqM); Albumin 1.5 g/dL (3.5-5.0); Alkaline Phosphatase 240 U/L (38-126); Anion Gap 4 mmol/L; Blood Urea Nitrogen 17 mg/dL (9-20); Calcium 7.2 mg/dL (8.4-10.2); Carbon Dioxide 24 mmol/L (22-30); Chloride 107 mmol/L (98-107); Glucose 127 mg/dL (74-99); Magnesium 1.8 mg/dL (1.6-2.3); Non-African American GFR(CKD) >90 (>60 ml/min/1.73 sqM); Potassium 4.1 mmol/L (3.5-5.1); Sodium 135 mmol/L (137-145); Total Bilirubin 2.1 mg/dL (0.2-1.3); Total Protein 5.5 g/dL (6.3-8.2)
[2019-03-18 06:52] LABS: Glucose,Whole Blood 160 mg/dL (75-99)
[2019-03-18 07:09] LABS: Band Neutrophils % 1 %; Eosinophils # (M) 0.33 k/uL (0-0.7); Lymphocytes # (M) 0.49 k/uL (1.0-4.8); Monocytes # (M) 0.16 k/uL (0-1.0); Neutrophils % (M) 87 %; Nucleated Red Blood Cells 0 /100 WBC (0-0); Total Cells Counted 100
[2019-03-18 07:10] LABS: Polychromasia Present
[2019-03-18] MEDS: PANTOPRAZOLE 40 MG TABLET PO SCH ×2 (07:11→16:20)
[2019-03-18] MEDS: MULTIVITAMINS, THERA 1 EACH TAB PO SCH (09:12)
[2019-03-18] MEDS: METOPROLOL TARTRATE 25 MG TAB PO SCH ×2 (09:12→21:35)
[2019-03-18] MEDS: HYDROcodone/APAP 5-325MG 1 EACH TAB PO PRN ×2 (09:13→21:35)
[2019-03-18] MEDS: LACTATED RINGERS 1,000 ML IV SCH (09:23)
[2019-03-18] MEDS: SYMBICORT 160-4.5 MCG INHALER INHALATION SCH ×2 (09:40→19:03)
[2019-03-18] MEDS: IPRATROPIUM-ALBUTEROL 3 ML NEB INHALATION SCH ×4 (09:40→19:03)
[2019-03-18] MEDS: MAGNESIUM SULFATE-D5W PMX 1 GM in DEXTROSE/WATER 1 100ML.BAG IVPB SCH ×2 (09:56→11:36)
[2019-03-18 10:59] VITALS: BMI 15.7
--- NOTE | 2019-03-18 11:36 | P.PN ---
Subjective Discussed possible placement on discharge they're considering [facility]. Physical therapy assisting patient on bed. Patient states he is adequate pain control. Patient continues with pulmonology and infectious disease and surgical consultation Objective - Vital Signs Vital signs: Vital Signs Temp 98.2 F 03/18/19 08:33 Pulse 92 03/18/19 09:52 Resp 20 03/18/19 08:33 BP 122/57 03/18/19 08:33 Pulse Ox 92 L 03/18/19 08:33 Intake & Output 03/17/19 03/18/19 03/18/19 18:59 06:59 18:59 Intake Total 730 300 240 Output Total 900 450 Balance 730 -600 -210 Weight 50 kg Intake: IV 310 Lactated Ringers 1,000 ml 160 @ 20 mls/hr IV .Q24H [facility] Rx#:[id number] Magnesium Sulfate-D5w Pmx 100 1 gm In Dextrose/Water 1 100ml.bag @ 100 mls/hr IVPB Q1H [facility] Rx#: [id number] cefTRIAXone 2 gm In 50 Sodium Chloride 0.9% 50 ml @ 100 mls/hr IVPB Q24HR [facility] Rx#:[id number] Oral 420 300 240 Output: Urine 900 450 Other: Voiding Method Indwelling Catheter Indwelling Catheter Indwelling Catheter # Bowel Movements 1 1 - Constitutional General appearance: Present: mild distress - EENT Eyes: Present: PERRLA Ears: bilateral: normal - Neck Neck: Present: normal ROM - Respiratory Respiratory: bilateral: diminished - Cardiovascular Rhythm: regular Abnormal Heart Sounds: Present: systolic murmur - Gastrointestinal General gastrointestinal: Present: soft - Genitourinary Male genitourinary: scrotal edema - Integumentary Integumentary Comment(s): Cellulitis left lower extremity right stump dressed - Neurologic Neurologic: Present: CNII-XII intact - Musculoskeletal Musculoskeletal: Present: generalized weakness - Psychiatric Psychiatric: Present: A&O x's 3, appropriate affect, intact judgment & insight - Labs CBC & Chem 7: 03/18/19 05:56 03/18/19 05:56 Labs: Abnormal Lab Results - Last 24 Hours (Table) 03/17/19 03/17/19 03/17/19 Range/Units 11:59 16:36 20:41 RBC (4.30-5.90) m/uL Hgb (13.0-17.5) gm/dL Hct (39.0-53.0) % MCHC (31.0-37.0) g/dL RDW (11.5-15.5) % Plt Count (150-450) k/uL Lymphocytes # (Manual) (1.0-4.8) k/uL PT (9.0-12.0) sec INR (<1.2) Sodium (137-145) mmol/L Creatinine (0.66-1.25) mg/dL Glucose (74-99) mg/dL POC Glucose (mg/dL) 151 H 134 H 223 H (75-99) mg/dL Calcium (8.4-10.2) mg/dL Total Bilirubin (0.2-1.3) mg/dL AST (17-59) U/L Alkaline Phosphatase (38-126) U/L Total Protein (6.3-8.2) g/dL Albumin (3.5-5.0) g/dL 03/18/19 03/18/19 03/18/19 Range/Units 05:56 05:56 05:56 RBC 2.41 L (4.30-5.90) m/uL Hgb 7.2 L (13.0-17.5) gm/dL Hct 23.9 L (39.0-53.0) % MCHC 30.1 L (31.0-37.0) g/dL RDW 21.4 H (11.5-15.5) % Plt Count 147 L (150-450) k/uL Lymphocytes # (Manual) 0.49 L (1.0-4.8) k/uL PT 14.9 H (9.0-12.0) sec INR 1.5 H (<1.2) Sodium 135 L (137-145) mmol/L Creatinine 0.53 L (0.66-1.25) mg/dL Glucose 127 H (74-99) mg/dL POC Glucose (mg/dL) (75-99) mg/dL Calcium 7.2 L (8.4-10.2) mg/dL Total Bilirubin 2.1 H (0.2-1.3) mg/dL AST 100 H (17-59) U/L Alkaline Phosphatase 240 H (38-126) U/L Total Protein 5.5 L (6.3-8.2) g/dL Albumin 1.5 L (3.5-5.0) g/dL 03/18/19 Range/Units 06:51 RBC (4.30-5.90) m/uL Hgb (13.0-17.5) gm/dL Hct (39.0-53.0) % MCHC (31.0-37.0) g/dL RDW (11.5-15.5) % Plt Count (150-450) k/uL Lymphocytes # (Manual) (1.0-4.8) k/uL PT (9.0-12.0) sec INR (<1.2) Sodium (137-145) mmol/L Creatinine (0.66-1.25) mg/dL Glucose (74-99) mg/dL POC Glucose (mg/dL) 160 H (75-99) mg/dL Calcium (8.4-10.2) mg/dL Total Bilirubin (0.2-1.3) mg/dL AST (17-59) U/L Alkaline Phosphatase (38-126) U/L Total Protein (6.3-8.2) g/dL Albumin (3.5-5.0) g/dL Assessment and Plan Plan: Assessment Bilateral leg cellulitis post edrhp-udm-pfmo amputation Sepsis gram-positive cocci Anemia normocytic anemia chronic disease Mental status changes with metabolic encephalopathy secondary to sepsis Severe peripheral vascular disease Hyponatremia hyperkalemia corrected Liver cirrhosis Elevated lactic acid chronic COPD acute exacerbation history of GI bleed and peptic ulcer Plan Continue consultation with pulmonology infectious disease surgical services Plan is to [facility]
[2019-03-18 11:40] LABS: Glucose,Whole Blood 119 mg/dL (75-99)
[2019-03-18] MEDS: FUROSEMIDE 20 MG TAB PO SCH ×2 (13:34→16:20)
--- NOTE | 2019-03-18 13:40 | P.PN ---
Subjective Progress Note Date: 03/18/19 Principal diagnosis: This is 63-year-old white male patient of Dr. Trevino, with past medical history of COPD/emphysema, chronic hypoxic respiratoryi, GERD/reflux, previous episodes of pneumonia, previous episode of GI bleeding, duodenal ulcer, chronic wound on his right heel, severe peripheral vascular disease and patient continues to smoke. Patient given to the hospital per EMS on 03/07/2019 with a complaint of pain in his right lower hurst and right knee, and concern of infection in his right lower extremity. Patient had mild lactic acid elevation at 4.0, was fluid resuscitated, and started on broad-spectrum antibiotics. Patient has had a chronic wound to his right lower extremity for many years, and he has been following with infectious disease and wound Center. He was seen bibasilar surgery, and no intervention is planned at this time. The patient and the family are considering a second opinion. He has been treated with a combination of Zosyn and vancomycin, and his right foot wound cultures are positive for presumptive staph aureus, and blood cultures are positive for Staphylococcus epidermidis. Despite the medical treatment patient is having worsening symptoms of sepsis. Pulmonary consultation is requested for preop clearance for possibility of right foot amputation. In terms of patient's history of COPD, he used to follow with Dr. Kyle in the pulmonary clinic but he has not been seen there for last 2 years. His last PFT in 2017 showed FEV1 of 79% of predicted with DLVA of 36%, and it was felt that his COPD was mostly emphysematous type. He is on home oxygen at 4 L on the regular basis, he is to be on maintenance inhalers, but not recently. He had 2 chest x-rays while inpatient, and both showed stable chronic emphysematous and parenchymal changes without acute pulmonary process. He remains on 4 L of oxygen his pulse ox is 88%, he is mildly dyspneic, but no acute distress, lung sounds reveal decreased breath sounds bilaterally, no major wheezing rhonchi or rales. On 03/13/2019 patient seen in follow-up on selective care unit, he is awake and alert, in no acute distress, seems to be less confused on today's exam. Answering questions appropriately, he is oriented to person, place and the place. A bit more wheezy compared to yesterday's exam, he is working on incentive spirometer, he is achieving [id number] on the today. He remains on oxygen at 3 L, his pulse ox is 93%, no new labs today, remains on IV antibiotics, local wound care to bilateral extremities. Hemodynamically patient is stable, and tentatively patient is scheduled for surgery tomorrow On 03/14/2019 patient seen in follow-up on selective care unit, he is awake and alert, oriented 3, does not appear to be in any acute distress, 5 to is 3 L, with a pulse ox of 90-93%, afebrile, remains on antibiotics, no significant wheezing or congestion today, he is working on incentive spirometer with someone's assistance. Today's labs have been reviewed, white blood cell chronic is 8.9, hemoglobin is 7.6 and patient isn't a speech receive a unit of packed red blood cells, serum sodium is 134, potassium is 4.0, chloride is 109, CO2 is 21, BUN is 13 creatinine 0.52. On 03/15/2019 patient seen in follow-up in the postoperative period after his right kiaxe-ech-ynlo amputation. He is awake, slightly confused, but appears to be in no acute distress. He is on 4 L of oxygen with a pulse ox of 94%, vital signs are stable, he is afebrile, no complaints of shortness of breath, complaints of pain, and patient tolerated procedure or right loxgp-ivb-vaav amputation very well. On 03/16/2019 patient is seen in follow-up on selective care unit. This is postoperative day 1 status post right ubknm-ttw-xhws amputation. Patient has done very well after the surgery, is having some more pain today but no acute distress. Complains of shortness of breath, he is on 3 L of oxygen with a pulse ox of 93%, afebrile, hemodynamically stable. Lung sounds are diminished, with no significant rhonchi or wheezing. No new labs today. No new chest x-rays, continues on nebulized bronchodilators, IV Rocephin, and vancomycin, he is been afebrile. On 03/17/2019 patient seen in follow-up on selective care unit, she is calm and comfortable, resting in bed currently on 6 L of oxygen with a pulse ox of 91- 92%, he is afebrile, hemodynamically stable, breathing is nonlabored, patient has a few scattered wheezes, and rhonchi, but no fever or chills, his breathing not any worse than in the preop period, he needs a lot of encouragement and assistance with utilizing his incentive spirometer, he is on nebulized bronchodilators. Today's labs have been reviewed, white blood cell count is 9.2, hemoglobin 7.1, today's INR is 1.5, sodium is 136, potassium is 4.4, c hloride is 110, CO2 is 24, BUN is 16, creatinine 0.5. Patient remains on Rocephin and vancomycin. Patient is intermittently confused. Having slightly more pain today, but no acute distress. Right stump is covered with a dressing. Wound care to left lower extremity On 03/18/2019 patient seen in follow-up on selective care unit, he is awake and alert, answering questions appropriately, seems to be a little less confused. He is on 3 L of oxygen with a pulse ox of 93%, he is afebrile, hemodynamically stable, working on his incentive spirometer with assistance and encouragement, no acute issues overnight, lung sounds reveal minimal wheezes, today's labs have been reviewed, showing left buttock on of 8.2, hemoglobin of 7.2, and INR is 1.5, sodium is 135, and the rest of electrolytes and renal profile were unremarkable. Patient continues on Rocephin and vancomycin, blood culture showed Staphylococcus epidermidis, and we'll culture showed presumptive staph aureus, final culture has not resulted yet. Patient has had no fever or chills, clinically looks good. Right gfivy-qwa-vwar stump is covered with a dressing, patient is receiving local wound care to that. Objective - Vital Signs Vital signs: Vital Signs Temp 98.2 F 03/18/19 11:43 Pulse 84 03/18/19 12:28 Resp 20 03/18/19 11:43 BP 108/55 03/18/19 11:43 Pulse Ox 93 L 03/18/19 11:43 Intake & Output 03/17/19 03/18/19 03/18/19 18:59 06:59 18:59 Intake Total 730 300 240 Output Total 900 450 Balance 730 -600 -210 Weight 50 kg Intake: IV 310 Lactated Ringers 1,000 ml 160 @ 20 mls/hr IV .Q24H [facility] Rx#:[id number] Magnesium Sulfate-D5w Pmx 100 1 gm In Dextrose/Water 1 100ml.bag @ 100 mls/hr IVPB Q1H [facility] Rx#: [id number] cefTRIAXone 2 gm In 50 Sodium Chloride 0.9% 50 ml @ 100 mls/hr IVPB Q24HR [facility] Rx#:[id number] Oral 420 300 240 Output: Urine 900 450 Other: Voiding Method Indwelling Catheter Indwelling Catheter Indwelling Catheter # Bowel Movements 1 1 - Exam GENERAL EXAM: Alert, confused, 63-year-old white male, on 3 L of oxygen, with a pulse ox of 92% comfortable in no apparent distress. HEAD: Normocephalic/atraumatic. EYES: Normal reaction of pupils, equal size. Conjunctiva pink, sclera white. NOSE: Clear with pink turbinates. THROAT: No erythema or exudates. NECK: No masses, no JVD, no thyroid enlargement, no adenopathy. CHEST: No chest wall deformity. Symmetrical expansion. LUNGS: Diminished air entry with minimal wheezes CVS: Regular rate and rhythm, normal S1 and S2, no gallops, no murmurs, no rubs ABDOMEN: Soft, nontender. No hepatosplenomegaly, normal bowel sounds, no guarding or rigidity. EXTREMITIES: No clubbing, 1+ nonpitting left lower extremity edema, and ulcerations and redness, covered with dressings, right idypn-ivx-tjtd stump related to right viyia-zil-kusw amputation covered with a dressing, and Hemovac is in place with small amount of sanguinous drainage MUSCULOSKELETAL: Muscle strength and tone normal. SPINE: No scoliosis or deformity SKIN: Redness involving her lower extremity's, right greater than left CENTRAL NERVOUS SYSTEM: Alert and oriented -3. No focal deficits, tone is normal in all 4 extremities. PSYCHIATRIC: Alert and oriented -3. Appropriate affect. Intact judgment and insight. - Labs CBC & Chem 7: 03/18/19 05:56 03/18/19 05:56 Labs: Abnormal Lab Results - Last 24 Hours (Table) 03/17/19 03/17/19 03/18/19 Range/Units 16:36 20:41 05:56 RBC 2.41 L (4.30-5.90) m/uL Hgb 7.2 L (13.0-17.5) gm/dL Hct 23.9 L (39.0-53.0) % MCHC 30.1 L (31.0-37.0) g/dL RDW 21.4 H (11.5-15.5) % Plt Count 147 L (150-450) k/uL Lymphocytes # (Manual) 0.49 L (1.0-4.8) k/uL PT (9.0-12.0) sec INR (<1.2) Sodium (137-145) mmol/L Creatinine (0.66-1.25) mg/dL Glucose (74-99) mg/dL POC Glucose (mg/dL) 134 H 223 H (75-99) mg/dL Calcium (8.4-10.2) mg/dL Total Bilirubin (0.2-1.3) mg/dL AST (17-59) U/L Alkaline Phosphatase (38-126) U/L Total Protein (6.3-8.2) g/dL Albumin (3.5-5.0) g/dL 03/18/19 03/18/19 03/18/19 Range/Units 05:56 05:56 06:51 RBC (4.30-5.90) m/uL Hgb (13.0-17.5) gm/dL Hct (39.0-53.0) % MCHC (31.0-37.0) g/dL RDW (11.5-15.5) % Plt Count (150-450) k/uL Lymphocytes # (Manual) (1.0-4.8) k/uL PT 14.9 H (9.0-12.0) sec INR 1.5 H (<1.2) Sodium 135 L (137-145) mmol/L Creatinine 0.53 L (0.66-1.25) mg/dL Glucose 127 H (74-99) mg/dL POC Glucose (mg/dL) 160 H (75-99) mg/dL Calcium 7.2 L (8.4-10.2) mg/dL Total Bilirubin 2.1 H (0.2-1.3) mg/dL AST 100 H (17-59) U/L Alkaline Phosphatase 240 H (38-126) U/L Total Protein 5.5 L (6.3-8.2) g/dL Albumin 1.5 L (3.5-5.0) g/dL 03/18/19 Range/Units 11:39 RBC (4.30-5.90) m/uL Hgb (13.0-17.5) gm/dL Hct (39.0-53.0) % MCHC (31.0-37.0) g/dL RDW (11.5-15.5) % Plt Count (150-450) k/uL Lymphocytes # (Manual) (1.0-4.8) k/uL PT (9.0-12.0) sec INR (<1.2) Sodium (137-145) mmol/L Creatinine (0.66-1.25) mg/dL Glucose (74-99) mg/dL POC Glucose (mg/dL) 119 H (75-99) mg/dL Calcium (8.4-10.2) mg/dL Total Bilirubin (0.2-1.3) mg/dL AST (17-59) U/L Alkaline Phosphatase (38-126) U/L Total Protein (6.3-8.2) g/dL Albumin (3.5-5.0) g/dL Assessment and Plan Plan: Assessment: #1. Sepsis related to right lower leg wounds, with cultures positive for presumptive staph, status post right uidwp-jhv-mbvl amputation, postop day 3 #2. Gram-positive cocci bacteremia related to the above #3. Chronic poorly healing wounds on right lower extremity #4. Emphysema/COPD, advanced, with chronic hypoxemic respiratory failure. Patient has been lost to follow-up in the pulmonary clinic for last 2 years, but last PFT from 2017 showed FEV1 79%, with decreased diffusion capacity at 34% of predicted #5. Former nicotine dependence, currently in remission #6. GERD/reflux #7. Previous episodes of GI bleeding related to a duodenal ulcer #8. Previous history of pneumonia #9. History of chronic liver disease Plan: Continue current medical treatment, antibiotics per ID service recommendations, continue encouraging deep breathing and coughing, maintain aspiration precautions, vital signs are stable, no fever no chills. The Symbicort, DuoNeb nebulized treatments, and incentive spirometry use. Discharge planning is in progress for discharge to [facility] I performed a history & physical examination of the patient and discussed their management with my nurse practitioner, Irena Ortiz. I reviewed the nurse practitioner's note and agree with the documented findings and plan of care. Lung sounds are positive for diminished breath sounds. The findings and the impression was discussed with the patient. I attest to the documentation by the nurse practitioner. Time with Patient: Less than 30
[2019-03-18 16:58] LABS: Glucose,Whole Blood 106 mg/dL (75-99)
[2019-03-18 20:06] LABS: Glucose,Whole Blood 155 mg/dL (75-99)
[2019-03-19 06:14] LABS: Glucose,Whole Blood 130 mg/dL (75-99)
[2019-03-19] MEDS: PANTOPRAZOLE 40 MG TABLET PO SCH ×2 (06:27→17:47)
[2019-03-19 06:34] LABS: African American GFR (CKD) >90 (>60 ml/min/1.73 sqM); Anion Gap 1 mmol/L; Blood Urea Nitrogen 17 mg/dL (9-20); Calcium 6.9 mg/dL (8.4-10.2); Carbon Dioxide 24 mmol/L (22-30); Chloride 107 mmol/L (98-107); Glucose 115 mg/dL (74-99); Magnesium 1.8 mg/dL (1.6-2.3); Non-African American GFR(CKD) >90 (>60 ml/min/1.73 sqM); Potassium 3.7 mmol/L (3.5-5.1); Sodium 132 mmol/L (137-145)
[2019-03-19 06:36] LABS: Anisocytosis Moderate; Hypochromasia Marked; MCH 30.2 pg (25.0-35.0); MCHC 30.2 g/dL (31.0-37.0); MCV 99.8 fL (80.0-100.0); Macrocytosis Moderate; Mean Platelet Volume 8.7; Platelet Count 139 k/uL (150-450); Poikilocytosis Slight; RBC 2.31 m/uL (4.30-5.90); RDW 21.5 % (11.5-15.5); WBC 7.1 k/uL (3.8-10.6)
[2019-03-19 07:07] LABS: Band Neutrophils % 4 %; Lymphocytes # (M) 0.43 k/uL (1.0-4.8); Monocytes # (M) 0.21 k/uL (0-1.0); Neutrophils % (M) 87 %; Nucleated Red Blood Cells 0 /100 WBC (0-0); Polychromasia Present; Total Cells Counted 100
[2019-03-19] MEDS: SYMBICORT 160-4.5 MCG INHALER INHALATION SCH ×2 (09:12→21:18)
[2019-03-19] MEDS: IPRATROPIUM-ALBUTEROL 3 ML NEB INHALATION SCH ×4 (09:12→21:18)
[2019-03-19] MEDS: FUROSEMIDE 20 MG TAB PO SCH ×2 (09:27→17:46)
[2019-03-19] MEDS: MULTIVITAMINS, THERA 1 EACH TAB PO SCH (09:27)
[2019-03-19] MEDS: METOPROLOL TARTRATE 25 MG TAB PO SCH ×2 (09:27→21:40)
[2019-03-19] MEDS ORDERED: SALINE NASAL GEL 14.1 GM TUBE TOPICAL PRN (10:04)
--- NOTE | 2019-03-19 10:21 | P.PN ---
Subjective Patient stabilizing. Need input from consultants pulmonary infectious disease and vascular surgeon for clearance for transferred to [facility] care [facility] Objective - Vital Signs Vital signs: Vital Signs Temp 98.3 F 03/18/19 23:32 Pulse 80 03/19/19 09:25 Resp 18 03/18/19 23:32 BP 127/56 03/18/19 23:32 Pulse Ox 91 L 03/18/19 23:32 Intake & Output 03/18/19 03/19/19 03/19/19 18:59 06:59 18:59 Intake Total 480 622 360 Output Total 450 900 Balance 30 -278 360 Weight 50 kg 50 kg Intake: IV 400 Lactated Ringers 1,000 ml 400 @ 20 mls/hr IV .Q24H [facility] Rx#:[id number] Oral 480 222 360 Output: Urine 450 900 Other: Voiding Method Indwelling Catheter Indwelling Catheter # Bowel Movements 1 1 - Constitutional General appearance: Present: mild distress - EENT Eyes: Present: PERRLA Ears: bilateral: normal - Neck Neck: Present: normal ROM - Respiratory Respiratory: bilateral: diminished - Cardiovascular Rhythm: regular Abnormal Heart Sounds: Present: systolic murmur - Gastrointestinal General gastrointestinal: Present: soft - Integumentary Integumentary Comment(s): Cellulitis left lower extremity dressing to amputation stump - Neurologic Neurologic: Present: CNII-XII intact - Musculoskeletal Musculoskeletal: Present: generalized weakness - Psychiatric Psychiatric: Present: A&O x's 3, appropriate affect, intact judgment & insight - Labs CBC & Chem 7: 03/19/19 05:26 03/19/19 05:26 Labs: Abnormal Lab Results - Last 24 Hours (Table) 03/18/19 03/18/19 03/18/19 Range/Units 11:39 16:56 20:05 RBC (4.30-5.90) m/uL Hgb (13.0-17.5) gm/dL Hct (39.0-53.0) % MCHC (31.0-37.0) g/dL RDW (11.5-15.5) % Plt Count (150-450) k/uL Lymphocytes # (Manual) (1.0-4.8) k/uL Sodium (137-145) mmol/L Creatinine (0.66-1.25) mg/dL Glucose (74-99) mg/dL POC Glucose (mg/dL) 119 H 106 H 155 H (75-99) mg/dL Calcium (8.4-10.2) mg/dL 03/19/19 03/19/19 03/19/19 Range/Units 05:26 05:26 06:12 RBC 2.31 L (4.30-5.90) m/uL Hgb 7.0 L (13.0-17.5) gm/dL Hct 23.0 L (39.0-53.0) % MCHC 30.2 L (31.0-37.0) g/dL RDW 21.5 H (11.5-15.5) % Plt Count 139 L (150-450) k/uL Lymphocytes # (Manual) 0.43 L (1.0-4.8) k/uL Sodium 132 L (137-145) mmol/L Creatinine 0.49 L (0.66-1.25) mg/dL Glucose 115 H (74-99) mg/dL POC Glucose (mg/dL) 130 H (75-99) mg/dL Calcium 6.9 L (8.4-10.2) mg/dL Assessment and Plan Plan: Assessment Bilateral leg cellulitis post ullpr-xpl-nqgp amputation Sepsis secondary to cellulitis gram-positive cocci Anemia normocytic anemia, of chronic disease Metabolic encephalopathy secondary to sepsis Severe peripheral vascular disease Hyponatremia hypokalemia corrected cirrhosis of the liver GERD acute on chronic COPD Plan Continue consultation with pulmonology infectious disease and vascular surgeon [facility] [place]
--- NOTE | 2019-03-19 12:21 | PN ---
PROGRESS NOTE This patient had a right above-knee amputation done. We have changed the dressing and stump site is healing good. No discharge or redness noted. Continue with change of dressing and physical therapy bedside. FLAKITA / BILLYN: [id number] /
[2019-03-19 12:25] LABS: Glucose,Whole Blood 172 mg/dL (75-99)
[2019-03-19] MEDS: HYDROcodone/APAP 5-325MG 1 EACH TAB PO PRN ×2 (12:46→21:39)
--- NOTE | 2019-03-19 15:06 | P.PN ---
Subjective Progress Note Date: 03/19/19 Principal diagnosis: This is 63-year-old white male patient of Dr. Trevino, with past medical history of COPD/emphysema, chronic hypoxic respiratoryi, GERD/reflux, previous episodes of pneumonia, previous episode of GI bleeding, duodenal ulcer, chronic wound on his right heel, severe peripheral vascular disease and patient continues to smoke. Patient given to the hospital per EMS on 03/07/2019 with a complaint of pain in his right lower hurst and right knee, and concern of infection in his right lower extremity. Patient had mild lactic acid elevation at 4.0, was fluid resuscitated, and started on broad-spectrum antibiotics. Patient has had a chronic wound to his right lower extremity for many years, and he has been following with infectious disease and wound Center. He was seen bibasilar surgery, and no intervention is planned at this time. The patient and the family are considering a second opinion. He has been treated with a combination of Zosyn and vancomycin, and his right foot wound cultures are positive for presumptive staph aureus, and blood cultures are positive for Staphylococcus epidermidis. Despite the medical treatment patient is having worsening symptoms of sepsis. Pulmonary consultation is requested for preop clearance for possibility of right foot amputation. In terms of patient's history of COPD, he used to follow with Dr. Kyle in the pulmonary clinic but he has not been seen there for last 2 years. His last PFT in 2017 showed FEV1 of 79% of predicted with DLVA of 36%, and it was felt that his COPD was mostly emphysematous type. He is on home oxygen at 4 L on the regular basis, he is to be on maintenance inhalers, but not recently. He had 2 chest x-rays while inpatient, and both showed stable chronic emphysematous and parenchymal changes without acute pulmonary process. He remains on 4 L of oxygen his pulse ox is 88%, he is mildly dyspneic, but no acute distress, lung sounds reveal decreased breath sounds bilaterally, no major wheezing rhonchi or rales. On 03/13/2019 patient seen in follow-up on selective care unit, he is awake and alert, in no acute distress, seems to be less confused on today's exam. Answering questions appropriately, he is oriented to person, place and the place. A bit more wheezy compared to yesterday's exam, he is working on incentive spirometer, he is achieving [id number] on the today. He remains on oxygen at 3 L, his pulse ox is 93%, no new labs today, remains on IV antibiotics, local wound care to bilateral extremities. Hemodynamically patient is stable, and tentatively patient is scheduled for surgery tomorrow On 03/14/2019 patient seen in follow-up on selective care unit, he is awake and alert, oriented 3, does not appear to be in any acute distress, 5 to is 3 L, with a pulse ox of 90-93%, afebrile, remains on antibiotics, no significant wheezing or congestion today, he is working on incentive spirometer with someone's assistance. Today's labs have been reviewed, white blood cell chronic is 8.9, hemoglobin is 7.6 and patient isn't a speech receive a unit of packed red blood cells, serum sodium is 134, potassium is 4.0, chloride is 109, CO2 is 21, BUN is 13 creatinine 0.52. On 03/15/2019 patient seen in follow-up in the postoperative period after his right ndrhb-wfu-zffh amputation. He is awake, slightly confused, but appears to be in no acute distress. He is on 4 L of oxygen with a pulse ox of 94%, vital signs are stable, he is afebrile, no complaints of shortness of breath, complaints of pain, and patient tolerated procedure or right bsagi-pww-wcfc amputation very well. On 03/16/2019 patient is seen in follow-up on selective care unit. This is postoperative day 1 status post right eexbt-usa-kocn amputation. Patient has done very well after the surgery, is having some more pain today but no acute distress. Complains of shortness of breath, he is on 3 L of oxygen with a pulse ox of 93%, afebrile, hemodynamically stable. Lung sounds are diminished, with no significant rhonchi or wheezing. No new labs today. No new chest x-rays, continues on nebulized bronchodilators, IV Rocephin, and vancomycin, he is been afebrile. On 03/17/2019 patient seen in follow-up on selective care unit, she is calm and comfortable, resting in bed currently on 6 L of oxygen with a pulse ox of 91- 92%, he is afebrile, hemodynamically stable, breathing is nonlabored, patient has a few scattered wheezes, and rhonchi, but no fever or chills, his breathing not any worse than in the preop period, he needs a lot of encouragement and assistance with utilizing his incentive spirometer, he is on nebulized bronchodilators. Today's labs have been reviewed, white blood cell count is 9.2, hemoglobin 7.1, today's INR is 1.5, sodium is 136, potassium is 4.4, c hloride is 110, CO2 is 24, BUN is 16, creatinine 0.5. Patient remains on Rocephin and vancomycin. Patient is intermittently confused. Having slightly more pain today, but no acute distress. Right stump is covered with a dressing. Wound care to left lower extremity On 03/18/2019 patient seen in follow-up on selective care unit, he is awake and alert, answering questions appropriately, seems to be a little less confused. He is on 3 L of oxygen with a pulse ox of 93%, he is afebrile, hemodynamically stable, working on his incentive spirometer with assistance and encouragement, no acute issues overnight, lung sounds reveal minimal wheezes, today's labs have been reviewed, showing left buttock on of 8.2, hemoglobin of 7.2, and INR is 1.5, sodium is 135, and the rest of electrolytes and renal profile were unremarkable. Patient continues on Rocephin and vancomycin, blood culture showed Staphylococcus epidermidis, and we'll culture showed presumptive staph aureus, final culture has not resulted yet. Patient has had no fever or chills, clinically looks good. Right ugwcl-hxy-rrbz stump is covered with a dressing, patient is receiving local wound care to that. On 03/19/2019 patient seen in follow-up on selective care unit, this is postoperative day 4, status post right nibzx-cto-ejvp amputation for nonhealing wounds and sepsis related to right lower leg wounds, with cultures positive for Staph aureus, hemodynamically patient is stable, then 2 L of oxygen, his pulse ox 91%, he needs encouragement and assistance with using his incentive spirometer, but from pulmonary perspective his had no complaints, no acute events, lung sounds reveal a few scattered wheezing, which is minimal, continues on nebulized bronchodilators, his vitals have been stable, his labs have been reviewed, showing white blood cell count of 7.1, hemoglobin is 7.0, sodium is 132, today's electrolytes have been normal, BUN is 17 creatinine 0.49. He is on oral Lasix, Rocephin antibiotic coverage, and nebulized bronchodilators. No acute events overnight. Right lower extremity stump is covered with a dressing, patient had a dressing change, and patient has had no fever, chills. Objective - Vital Signs Vital signs: Vital Signs Temp 98.3 F 03/19/19 08:40 Pulse 80 03/19/19 09:25 Resp 20 03/19/19 08:40 BP 117/59 03/19/19 08:40 Pulse Ox 91 L 03/19/19 08:40 Intake & Output 03/18/19 03/19/19 03/19/19 18:59 06:59 18:59 Intake Total 480 622 840 Output Total 450 900 Balance 30 -278 840 Weight 50 kg 50 kg Intake: IV 400 Lactated Ringers 1,000 ml 400 @ 20 mls/hr IV .Q24H [facility] Rx#:[id number] Oral 480 222 840 Output: Urine 450 900 Other: Voiding Method Indwelling Catheter Indwelling Catheter Indwelling Catheter # Bowel Movements 1 1 - Exam GENERAL EXAM: Alert, confused, 63-year-old white male, on 3 L of oxygen, with a pulse ox of 92% comfortable in no apparent distress. HEAD: Normocephalic/atraumatic. EYES: Normal reaction of pupils, equal size. Conjunctiva pink, sclera white. NOSE: Clear with pink turbinates. THROAT: No erythema or exudates. NECK: No masses, no JVD, no thyroid enlargement, no adenopathy. CHEST: No chest wall deformity. Symmetrical expansion. LUNGS: Diminished air entry with minimal wheezes CVS: Regular rate and rhythm, normal S1 and S2, no gallops, no murmurs, no rubs ABDOMEN: Soft, nontender. No hepatosplenomegaly, normal bowel sounds, no guarding or rigidity. EXTREMITIES: No clubbing, 1+ nonpitting left lower extremity edema, and ulcerations and redness, covered with dressings, right spalg-tpo-fnfj stump related to right fqzmu-ccl-bfeq amputation covered with a dressing, and Hemovac is in place with small amount of sanguinous drainage MUSCULOSKELETAL: Muscle strength and tone normal. SPINE: No scoliosis or deformity SKIN: Redness involving her lower extremity's, right greater than left CENTRAL NERVOUS SYSTEM: Alert and oriented -3. No focal deficits, tone is normal in all 4 extremities. PSYCHIATRIC: Alert and oriented -3. Appropriate affect. Intact judgment and insight. - Labs CBC & Chem 7: 03/19/19 05:26 03/19/19 05:26 Labs: Abnormal Lab Results - Last 24 Hours (Table) 03/18/19 03/18/19 03/19/19 Range/Units 16:56 20:05 05:26 RBC 2.31 L (4.30-5.90) m/uL Hgb 7.0 L (13.0-17.5) gm/dL Hct 23.0 L (39.0-53.0) % MCHC 30.2 L (31.0-37.0) g/dL RDW 21.5 H (11.5-15.5) % Plt Count 139 L (150-450) k/uL Lymphocytes # (Manual) 0.43 L (1.0-4.8) k/uL Sodium (137-145) mmol/L Creatinine (0.66-1.25) mg/dL Glucose (74-99) mg/dL POC Glucose (mg/dL) 106 H 155 H (75-99) mg/dL Calcium (8.4-10.2) mg/dL 03/19/19 03/19/19 03/19/19 Range/Units 05:26 06:12 12:12 RBC (4.30-5.90) m/uL Hgb (13.0-17.5) gm/dL Hct (39.0-53.0) % MCHC (31.0-37.0) g/dL RDW (11.5-15.5) % Plt Count (150-450) k/uL Lymphocytes # (Manual) (1.0-4.8) k/uL Sodium 132 L (137-145) mmol/L Creatinine 0.49 L (0.66-1.25) mg/dL Glucose 115 H (74-99) mg/dL POC Glucose (mg/dL) 130 H 172 H (75-99) mg/dL Calcium 6.9 L (8.4-10.2) mg/dL Assessment and Plan Plan: Assessment: #1. Sepsis related to right lower leg wounds, with cultures positive for presumptive staph, status post right mzihp-rcw-hrzx amputation, postop day 4 #2. Gram-positive cocci bacteremia related to the above #3. Chronic poorly healing wounds on right lower extremity #4. Emphysema/COPD, advanced, with chronic hypoxemic respiratory failure. Patient has been lost to follow-up in the pulmonary clinic for last 2 years, but last PFT from 2017 showed FEV1 79%, with decreased diffusion capacity at 34% of predicted #5. Former nicotine dependence, currently in remission #6. GERD/reflux #7. Previous episodes of GI bleeding related to a duodenal ulcer #8. Previous history of pneumonia #9. History of chronic liver disease Plan: Continue current medical treatment, antibiotics per ID service recommendations, vitals have been stable, no fever or chills, no worsening dyspnea, encourage deep breathing and coughing, maintain aspiration precautions, patient has remained stable from pulmonary perspective, we will follow with the patient on as-needed basis. I performed a history & physical examination of the patient and discussed their management with my nurse practitioner, Irena Ortiz. I reviewed the nurse practitioner's note and agree with the documented findings and plan of care. Lung sounds are positive for diminished breath sounds. The findings and the impression was discussed with the patient. I attest to the documentation by the nurse practitioner. Time with Patient: Less than 30
[2019-03-19 17:18] LABS: Glucose,Whole Blood 125 mg/dL (75-99)
[2019-03-19 21:23] LABS: Glucose,Whole Blood 122 mg/dL (75-99)
[2019-03-19 23:05] VITALS: RESP 18
[2019-03-20] MEDS: HYDROcodone/APAP 5-325MG 1 EACH TAB PO PRN ×2 (04:15→10:07)
[2019-03-20 06:24] LABS: Glucose,Whole Blood 118 mg/dL (75-99)
[2019-03-20] MEDS: PANTOPRAZOLE 40 MG TABLET PO SCH ×2 (06:45→16:06)
[2019-03-20] MEDS: IPRATROPIUM-ALBUTEROL 3 ML NEB INHALATION SCH ×4 (07:59→20:27)
[2019-03-20] MEDS: SYMBICORT 160-4.5 MCG INHALER INHALATION SCH ×2 (07:59→20:27)
[2019-03-20] MEDS: MULTIVITAMINS, THERA 1 EACH TAB PO SCH (09:51)
[2019-03-20] MEDS: METOPROLOL TARTRATE 25 MG TAB PO SCH ×2 (09:51→20:56)
[2019-03-20] MEDS: FUROSEMIDE 20 MG TAB PO SCH ×2 (09:51→16:05)
[2019-03-20] MEDS: LACTATED RINGERS 1,000 ML IV SCH ×2 (09:52→11:49)
[2019-03-20 12:11] LABS: Glucose,Whole Blood 204 mg/dL (75-99)
--- NOTE | 2019-03-20 12:48 | P.PN ---
Subjective Patient improving continues with cough. Pain control. Continues consultation with pulmonology infectious disease and vascular surgeon. Hopeful transfer soon to [facility] in [place] Objective - Vital Signs Vital signs: Vital Signs Temp 98.2 F 03/20/19 08:00 Pulse 82 03/20/19 12:06 Resp 18 03/20/19 11:50 BP 109/55 03/20/19 11:50 Pulse Ox 90 L 03/20/19 11:50 Intake & Output 03/19/19 03/20/19 03/20/19 18:59 06:59 18:59 Intake Total 1320 280 472 Output Total 450 700 Balance 870 280 -228 Intake: Intake, IV Titration 280 Amount Lactated Ringers 1,000 ml 280 @ 20 mls/hr IV .Q24H [facility] Rx#:[id number] Oral 1320 472 Output: Urine 450 700 Other: Voiding Method Indwelling Catheter Indwelling Catheter Indwelling Catheter # Bowel Movements 2 - Constitutional General appearance: Present: mild distress - EENT Eyes: Present: PERRLA Ears: bilateral: normal - Neck Neck: Present: normal ROM - Respiratory Respiratory: bilateral: diminished - Cardiovascular Rhythm: regular Abnormal Heart Sounds: Present: systolic murmur - Gastrointestinal General gastrointestinal: Present: soft - Genitourinary Male genitourinary: scrotal edema - Integumentary Integumentary Comment(s): Cellulitis right lower extremity - Neurologic Neurologic: Present: CNII-XII intact - Musculoskeletal Musculoskeletal: Present: generalized weakness - Psychiatric Psychiatric: Present: A&O x's 3, appropriate affect, intact judgment & insight - Labs CBC & Chem 7: 03/19/19 05:26 03/19/19 05:26 Labs: Abnormal Lab Results - Last 24 Hours (Table) 03/19/19 03/19/19 03/20/19 Range/Units 17:06 21:17 06:15 POC Glucose (mg/dL) 125 H 122 H 118 H (75-99) mg/dL 03/20/19 Range/Units 12:10 POC Glucose (mg/dL) 204 H (75-99) mg/dL Assessment and Plan Plan: Assessment Bilateral leg cellulitis post lktcd-spy-xsgj amputation right leg sepsis with gram-positive cocci Mental status changes metabolic encephalopathy secondary to sepsis Anemia chronic disease Hypo-natremia hypokalemia corrected Severe peripheral vascular disease Liver cirrhosis COPD with acute exacerbation History of peptic ulcer disease plan Plan Continue consultation with vascular surgeon infectious disease and pulmonology Awaiting for clearance for transfer to [facility]
[2019-03-20] MEDS ORDERED: PROMETHAZINE HCL 6.25 MG/5 ML CUP PO PRN (15:50)
[2019-03-20 16:43] LABS: Glucose,Whole Blood 130 mg/dL (75-99)
[2019-03-20 20:47] LABS: Glucose,Whole Blood 114 mg/dL (75-99)
[2019-03-21 06:15] LABS: Glucose,Whole Blood 119 mg/dL (75-99)
[2019-03-21] MEDS: PANTOPRAZOLE 40 MG TABLET PO SCH (06:54)
[2019-03-21 07:00] VITALS: TEMP 98.7
[2019-03-21] MEDS: SYMBICORT 160-4.5 MCG INHALER INHALATION SCH (08:39)
[2019-03-21] MEDS: IPRATROPIUM-ALBUTEROL 3 ML NEB INHALATION SCH ×2 (08:39→13:28)
[2019-03-21] MEDS: MULTIVITAMINS, THERA 1 EACH TAB PO SCH (09:11)
[2019-03-21] MEDS: METOPROLOL TARTRATE 25 MG TAB PO SCH (09:11)
[2019-03-21] MEDS: FUROSEMIDE 20 MG TAB PO SCH (09:11)
[2019-03-21] MEDS: LACTATED RINGERS 1,000 ML IV SCH (09:12)
[2019-03-21 11:04] VITALS: BP 112/60
[2019-03-21 11:49] LABS: Glucose,Whole Blood 136 mg/dL (75-99)
--- NOTE | 2019-03-21 11:58 | P.DS ---
Providers Date of admission: 03/07/19 12:32 Expected date of discharge: 03/21/19 Attending physician: Narayan Trevino Consults: 03/07/19 15:30 Consult Physician Routine Consulting Provider: Justyn Hamlin Consult Reason/Comments: sepsis Do you want consulting provider notified?: Yes Consult Physician Routine Consulting Provider: Kev Arevalo Consult Reason/Comments: leg ulcer Do you want consulting provider notified?: Yes 03/10/19 15:46 Consult Physician Urgent Consulting Provider: Ancelmo Magaña Consult Reason/Comments: pre-op clearance amputation Do you want consulting provider notified?: Yes 03/12/19 13:01 Consult Physician Urgent Consulting Provider: Edinson Kyle Consult Reason/Comments: pre-op clearance foot amputation Do you want consulting provider notified?: Yes Primary care physician: Narayan Trevino Hospital Course: Final diagnosis Bilateral leg cellulitis status post tbrlp-tkf-qrto amputation right leg sepsis Mental status changes metabolic encephalopathy secondary to sepsis Anemia chronic disease Hypo-natremia hypokalemia Severe peripheral vascular disease Liver cirrhosis COPD with acute exacerbation History of peptic ulcer disease Discharge disposition Patient is being discharged in a stable condition with guarded prognosis to [facility] for continued PT/OT therapy and will follow-up with primary care provider Dr. Narayan Trevino in the outpatient setting. Patient will also follow-up with Dr. Arevalo in 1-2 weeks. Patient will continue on oral Keflex 500 mg 3 times daily for the next one week. Total time taken is 35 minutes. History of present illness This is a 63-year-old male who was recently admitted for leg ulcers with bilateral leg cellulitis and showing signs of sepsis and was being closely monitored. During hospitalization patient underwent an ltmfs-xkf-cgnc amputation of the right leg. Vascular surgery following closely. Patient will follow-up with primary care provider Dr. Narayan Trevino along with Dr. Arevalo in the outpatient setting. Infectious disease was following for antibiotic recommendations and patient will continue on oral Keflex 500 mg 3 times daily for the next 1 week and then may discontinue. Patient will be going to [facility] for continued PT/OT therapy along with local wound care. Currently patient's condition is stable and is ready for discharge today. Guarded prognosis. On exam vital signs are stable. Temp is 98.7F, pulse is 86, respirations are 18, blood pressure 112/60, oxygen saturation is 92% on 2 L via nasal cannula. Cardio S1, S2 are muffled. Respiratory system shows diminished breath sounds at the bases. Abdomen is soft and nontender. Nervous system shows no focal deficits with mild diffuse weakness. These refer to medication reconciliation sheet for a list of medications. Patient Condition at Discharge: Stable Plan - Discharge Summary Discharge Rx Participant: No New Discharge Prescriptions: New Ipratropium-Albuterol Nebulize [Duoneb 0.5 mg-3 mg/3 ml Soln] 3 ml INHALATION RT-QID ampul.neb Ipratropium-Albuterol Nebulize [Duoneb 0.5 mg-3 mg/3 ml Soln] 3 ml INHALATION RT-QID PRN ampul.neb PRN Reason: Shortness Of Breath Or Wheezing Cephalexin [Keflex] 500 mg PO Q8HR 7 Days #21 cap Furosemide [Lasix] 20 mg PO BID@0900,1600 tab Metoprolol Tartrate [Lopressor] 25 mg PO BID tab HYDROcodone/APAP 5-325MG [Huron 5-325] 1 each PO Q4HR PRN #4 tab PRN Reason: Moderate Pain Budesonide-Formot 160-4.5 Mcg [Symbicort 160-4.5 Mcg Inhaler] 2 puff INHALATION RT-BID puff Continue SILVER sulfADIAZINE Cream [Silvadene 1% Cream] 1 applic TOPICAL BID Pantoprazole [Protonix] 40 mg PO BID Apixaban [Eliquis] 5 mg PO BID Multivit-Min/FA/Lycopen/Lutein [Centrum Silver Men Tablet] 1 tab PO DAILY Discontinued Amoxic-Pot Clav 875-125Mg [Augmentin 875-125] 1 tab PO Q12HR Discharge Medication List Apixaban [Eliquis] 5 mg PO BID 03/07/19 [History] Multivit-Min/FA/Lycopen/Lutein [Centrum Silver Men Tablet] 1 tab PO DAILY 03/07/19 [History] Pantoprazole [Protonix] 40 mg PO BID 03/07/19 [History] SILVER sulfADIAZINE Cream [Silvadene 1% Cream] 1 applic TOPICAL BID 03/07/19 [History] Budesonide-Formot 160-4.5 Mcg [Symbicort 160-4.5 Mcg Inhaler] 2 puff INHALATION RT-BID puff 03/21/19 [Rx] Cephalexin [Keflex] 500 mg PO Q8HR 7 Days #21 cap 03/21/19 [Rx] Furosemide [Lasix] 20 mg PO BID@0900,1600 tab 03/21/19 [Rx] HYDROcodone/APAP 5-325MG [Huron 5-325] 1 each PO Q4HR PRN #4 tab 03/21/19 [Rx] Ipratropium-Albuterol Nebulize [Duoneb 0.5 mg-3 mg/3 ml Soln] 3 ml INHALATION RT-QID ampul.neb 03/21/19 [Rx] Ipratropium-Albuterol Nebulize [Duoneb 0.5 mg-3 mg/3 ml Soln] 3 ml INHALATION RT-QID PRN ampul.neb 03/21/19 [Rx] Metoprolol Tartrate [Lopressor] 25 mg PO BID tab 03/21/19 [Rx] Follow up Appointment(s)/Referral(s): Narayan Trevino MD [Primary Care Provider] - 1-2 days Kev Arevalo MD [STAFF PHYSICIAN] - 1 Week Patient Instructions/Handouts: How to Stop Smoking (DC) Activity/Diet/Wound Care/Special Instructions: Patient is going to [facility] Follow-up with primary care provider upon discharge Follow-up with Dr. Arevalo 1-2 weeks Continue working with PT/OT Continue current diet Continue with a dry dressing to the right stump and monitor mookie for any redness or drainage and notify primary care provider. Discharge Disposition: TRANSFER TO SNF/ECF
[2019-03-21 13:41] VITALS: PULSE 88
[2019-03-21] MEDS ORDERED: CEPHALEXIN 500 MG CAP PO SCH (16:00)
== END 2019-03-21 16:21 | DRG 853 ==
LOC: EC 08:57 → 3SCARD 12:32
PROVIDERS: ADMIT Family Medicine; ATTEND Family Medicine
PROC: 0Y6C0Z1 Detachment at Right Upper Leg, High, Open Approach (ICD-10-PCS; principal; 2019-03-15 07:30)
DX: A41.89 Other specified sepsis (principal); G93.41 Metabolic encephalopathy; L03.115 Cellulitis of right lower limb; L03.116 Cellulitis of left lower limb; E87.1 Hypo-osmolality and hyponatremia; J96.11 Chronic respiratory failure with hypoxia; G40.89 Other seizures; L97.419 Non-pressure chronic ulcer of right heel and midfoot with unspecified severity; I10 Essential (primary) hypertension; I27.20 Pulmonary hypertension, unspecified; K21.9 Gastro-esophageal reflux disease without esophagitis; F17.200 Nicotine dependence, unspecified, uncomplicated; E87.6 Hypokalemia; R65.20 Severe sepsis without septic shock; D63.8 Anemia in other chronic diseases classified elsewhere; K70.30 Alcoholic cirrhosis of liver without ascites; F14.21 Cocaine dependence, in remission; B96.89 Other specified bacterial agents as the cause of diseases classified elsewhere; J43.9 Emphysema, unspecified; I70.291 Other atherosclerosis of native arteries of extremities, right leg; E83.51 Hypocalcemia; K70.10 Alcoholic hepatitis without ascites; D69.6 Thrombocytopenia, unspecified; E87.5 Hyperkalemia; I08.2 Rheumatic disorders of both aortic and tricuspid valves; M85.80 Other specified disorders of bone density and structure, unspecified site; R32 Unspecified urinary incontinence; L97.509 Non-pressure chronic ulcer of other part of unspecified foot with unspecified severity; Z79.899 Other long term (current) drug therapy; Z79.01 Long term (current) use of anticoagulants; Z87.01 Personal history of pneumonia (recurrent); Z87.11 Personal history of peptic ulcer disease; Z86.19 Personal history of other infectious and parasitic diseases; Z98.890 Other specified postprocedural states; Z83.3 Family history of diabetes mellitus; Z83.79 Family history of other diseases of the digestive system; Z86.718 Personal history of other venous thrombosis and embolism
CPT/HCPCS: 36415; 64445; 71045; 73502; 76942; 80048; 80053; 80202; 82140; 83605; 83735; 85025; 85027; 85610; 85730; 86850; 86900; 86901; 86920; 87040; 87070; 87077; 87186; 87205; 93005; 94640; 94760; 96361; 96365; 96366; 96368; 96375; 99285

== ENCOUNTER 2019-04-19 07:55 | Inpatient (IN) | payer MEDICARE, BC ==
[2019-04-19] MEDS ORDERED: SODIUM CHLORIDE 0.9% 500 ML 500 ML IV STA (08:16)
[2019-04-19] MEDS ORDERED: PANTOPRAZOLE 40 MG/10 ML VIAL IVP STA (08:17)
--- NOTE | 2019-04-19 08:32 | ED ---
General Adult HPI - General Chief complaint: GI Bleed Stated complaint: Gi bleed Time Seen by Provider: 04/19/19 08:03 Source: patient, EMS, RN notes reviewed, old records reviewed Mode of arrival: EMS Limitations: no limitations - History of Present Illness Initial comments: 63-year-old male presenting with abdominal pain, distention, and vomiting. Maikel platt is currently in penitentiary care for rehabilitation status post right [id number] amputation. He presents today with several episodes of vomiting which according to staff or coffee ground in color. He is currently on Xarelto. Patient denying complaints time my evaluation, no pain, no further nausea. Patient is a poor historian. - Related Data Home Medications Medication Instructions Recorded Confirmed Apixaban [Eliquis] 5 mg PO BID 03/07/19 03/07/19 Multivit-Min/FA/Lycopen/Lutein 1 tab PO DAILY 03/07/19 03/07/19 [Centrum Silver Men Tablet] Pantoprazole [Protonix] 40 mg PO BID 03/07/19 03/07/19 SILVER sulfADIAZINE Cream 1 applic TOPICAL BID 03/07/19 03/07/19 [Silvadene 1% Cream] Previous Rx's Medication Instructions Recorded Budesonide-Formot 160-4.5 Mcg 2 puff INHALATION RT-BID puff 03/21/19 [Symbicort 160-4.5 Mcg Inhaler] Cephalexin [Keflex] 500 mg PO Q8HR 7 Days #21 cap 03/21/19 Furosemide [Lasix] 20 mg PO BID@0900,1600 tab 03/21/19 HYDROcodone/APAP 5-325MG [Meally 1 each PO Q4HR PRN #4 tab 03/21/19 5-325] Ipratropium-Albuterol Nebulize 3 ml INHALATION RT-QID ampul.neb 03/21/19 [Duoneb 0.5 mg-3 mg/3 ml Soln] Ipratropium-Albuterol Nebulize 3 ml INHALATION RT-QID PRN 03/21/19 [Duoneb 0.5 mg-3 mg/3 ml Soln] ampul.neb Metoprolol Tartrate [Lopressor] 25 mg PO BID tab 03/21/19 Allergies Allergy/AdvReac Type Severity Reaction Status Date / Time No Known Allergies Allergy Verified 03/07/19 11:06 Review of Systems ROS Statement: Those systems with pertinent positive or pertinent negative responses have been documented in the HPI. ROS Other: All systems not noted in ROS Statement are negative. Past Medical History Past Medical History: COPD, Deep Vein Thrombosis (DVT), GERD/Reflux, GI Bleed, Hypertension, Pneumonia, Vascular Disorder Additional Past Medical History / Comment(s): Pt recently admitted to [facility] on 02/14/19 with chronic cellulitis R foot with deformity/L hand contracture/L leg weakness and was transferred to [facility]. Pt states he had an angiogram done there. Other hx: Upper GI hemorrhage/duodenal ulcer with acute blood loss anemia/multiple transfusions and intubated/vented, possible pneumonia/ thrombocytopenia/ hyperammonemia with possible chronic liver disease/cirrhosis-pt was transferred to [facility] and pt states they informed him he does not have liver disease/cirrhosis, O2 2-4L/NC prn, L hand tendonitis, lymphedema/lower extremity edema, DVT l upper extremity, pancytopenia, hyperbilirubenemia, cholelithiasis, current R heel ulcer being seen in wound care center, bilateral lower leg wounds, falls, R leg shorter than L leg. 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 Past Anesthesia/Blood Transfusion Reactions: No Reported Reaction Additional Past Anesthesia/Blood Transfusion Reaction / Comment(s): Pt has received blood without reaction. Past Psychological History: No Psychological Hx Reported Smoking Status: Light tobacco smoker - Past Family History Mother Family Medical History: GERD/Reflux Additional Family Medical History / Comment(s): of crohn's disease Father Family Medical History: Diabetes Mellitus General Exam Limitations: no limitations General appearance: alert, in no apparent distress Head exam: Present: atraumatic, normocephalic Eye exam: Present: normal appearance, PERRL ENT exam: Present: mucous membranes dry (With dark emesis) Neck exam: Present: normal inspection. Absent: tenderness Respiratory exam: Present: normal lung sounds bilaterally. Absent: respiratory distress, wheezes Cardiovascular Exam: Present: regular rate, normal rhythm GI/Abdominal exam: Present: soft, distended. Absent: tenderness, guarding, rebound Extremities exam: Present: normal inspection, normal capillary refill Neurological exam: Present: alert, oriented X3, CN II-XII intact. Absent: motor sensory deficit Psychiatric exam: Present: normal affect, normal mood Skin exam: Present: warm, dry, intact. Absent: cyanosis, diaphoretic Course Vital Signs 04/19/19 04/19/19 04/19/19 07:57 09:56 09:58 Temperature 98.3 F 98.4 F Pulse Rate 100 89 Respiratory 18 18 Rate Blood Pressure 118/77 108/69 O2 Sat by Pulse 98 100 Oximetry Medical Decision Making - Medical Decision Making 63-year-old male with coffee-ground emesis. Patient has stable vitals on initial evaluation, he is ill-appearing with distended abdomen. He has mild leukocytosis 12.7. Hemoglobin 8.3 which is baseline for this patient. He has elevated INR at 2.1 and he is on Xarelto. He has a lactic acid of 4.8, elevated total bili. He hasn't low albumin 1.8. He has a CT showing ascites, as well as paraesophageal varices and gastrosplenic varices. I discussed case with Dr. Mckinney, and Dr. Kyle. He will be admitted ICU. NG tube was requested by gastroenterology. He started on octreotide, protonic, ceftriaxone. He is discussed with the admitting physician Dr. Romero - Lab Data Result diagrams: 04/19/19 08:04 04/19/19 08:04 Lab Results 04/19/19 04/19/19 04/19/19 Range/Units 08:04 08:04 08:04 WBC 12.7 H (3.8-10.6) k/uL RBC 2.93 L (4.30-5.90) m/uL Hgb 8.3 L (13.0-17.5) gm/dL Hct 28.3 L (39.0-53.0) % MCV 96.3 (80.0-100.0) fL MCH 28.4 (25.0-35.0) pg MCHC 29.5 L (31.0-37.0) g/dL RDW 18.8 H (11.5-15.5) % Plt Count 198 (150-450) k/uL Neutrophils % (Manual) 92 % Band Neutrophils % 2 % Lymphocytes % (Manual) 3 % Monocytes % (Manual) 2 % Eosinophils % (Manual) 1 % Neutrophils # (Manual) 11.90 H (1.3-7.7) k/uL Lymphocytes # (Manual) 0.38 L (1.0-4.8) k/uL Monocytes # (Manual) 0.25 (0-1.0) k/uL Eosinophils # (Manual) 0.13 (0-0.7) k/uL Nucleated RBCs 0 (0-0) /100 WBC Manual Slide Review Performed Hypochromasia Marked Poikilocytosis Slight Anisocytosis Slight Macrocytosis Slight PT (9.0-12.0) sec INR (<1.2) APTT (22.0-30.0) sec Sodium 138 (137-145) mmol/L Potassium 4.0 (3.5-5.1) mmol/L Chloride 107 (98-107) mmol/L Carbon Dioxide 19 L (22-30) mmol/L Anion Gap 12 mmol/L BUN 19 (9-20) mg/dL Creatinine 0.61 L (0.66-1.25) mg/dL Est GFR (CKD-EPI)AfAm >90 (>60 ml/min/1.73 sqM) Est GFR (CKD-EPI)NonAf >90 (>60 ml/min/1.73 sqM) Glucose 125 H (74-99) mg/dL Plasma Lactic Acid [place] 4.8 H* (0.7-2.0) mmol/L Calcium 8.5 (8.4-10.2) mg/dL Magnesium 1.7 (1.6-2.3) mg/dL Total Bilirubin 4.2 H (0.2-1.3) mg/dL AST 38 (17-59) U/L ALT 15 (4-49) U/L Alkaline Phosphatase 116 (38-126) U/L Troponin I (0.000-0.034) ng/mL Total Protein 6.8 (6.3-8.2) g/dL Albumin 1.8 L (3.5-5.0) g/dL Lipase 49 (23-300) U/L Urine Color Urine Appearance (Clear) Urine pH (5.0-8.0) Ur Specific [place] (1.001-1.035) Urine Protein (Negative) Urine Glucose (UA) (Negative) Urine Ketones (Negative) Urine Blood (Negative) Urine Nitrite (Negative) Urine Bilirubin (Negative) Urine Urobilinogen (<2.0) mg/dL Ur Leukocyte Esterase (Negative) Urine RBC (0-5) /hpf Urine WBC (0-5) /hpf Amorphous Sediment (None) /hpf Urine Mucus (None) /hpf Urine Yeast (Budding) (None) /hpf Blood Type Blood Type Recheck Bld Type Recheck Status Antibody Screen Spec Expiration Date 04/19/19 04/19/19 04/19/19 Range/Units 08:04 08:04 08:04 WBC (3.8-10.6) k/uL RBC (4.30-5.90) m/uL Hgb (13.0-17.5) gm/dL Hct (39.0-53.0) % MCV (80.0-100.0) fL MCH (25.0-35.0) pg MCHC (31.0-37.0) g/dL RDW (11.5-15.5) % Plt Count (150-450) k/uL Neutrophils % (Manual) % Band Neutrophils % % Lymphocytes % (Manual) % Monocytes % (Manual) % Eosinophils % (Manual) % Neutrophils # (Manual) (1.3-7.7) k/uL Lymphocytes # (Manual) (1.0-4.8) k/uL Monocytes # (Manual) (0-1.0) k/uL Eosinophils # (Manual) (0-0.7) k/uL Nucleated RBCs (0-0) /100 WBC Manual Slide Review Hypochromasia Poikilocytosis Anisocytosis Macrocytosis PT 20.2 H (9.0-12.0) sec INR 2.1 H (<1.2) APTT 33.7 H (22.0-30.0) sec Sodium (137-145) mmol/L Potassium (3.5-5.1) mmol/L Chloride (98-107) mmol/L Carbon Dioxide (22-30) mmol/L Anion Gap mmol/L BUN (9-20) mg/dL Creatinine (0.66-1.25) mg/dL Est GFR (CKD-EPI)AfAm (>60 ml/min/1.73 sqM) Est GFR (CKD-EPI)NonAf (>60 ml/min/1.73 sqM) Glucose (74-99) mg/dL Plasma Lactic Acid [place] (0.7-2.0) mmol/L Calcium (8.4-10.2) mg/dL Magnesium (1.6-2.3) mg/dL Total Bilirubin (0.2-1.3) mg/dL AST (17-59) U/L ALT (4-49) U/L Alkaline Phosphatase (38-126) U/L Troponin I <0.012 (0.000-0.034) ng/mL Total Protein (6.3-8.2) g/dL Albumin (3.5-5.0) g/dL Lipase (23-300) U/L Urine Color Urine Appearance (Clear) Urine pH (5.0-8.0) Ur Specific [place] (1.001-1.035) Urine Protein (Negative) Urine Glucose (UA) (Negative) Urine Ketones (Negative) Urine Blood (Negative) Urine Nitrite (Negative) Urine Bilirubin (Negative) Urine Urobilinogen (<2.0) mg/dL Ur Leukocyte Esterase (Negative) Urine RBC (0-5) /hpf Urine WBC (0-5) /hpf Amorphous Sediment (None) /hpf Urine Mucus (None) /hpf Urine Yeast (Budding) (None) /hpf Blood Type O Negative Blood Type Recheck O Neg Bld Type Recheck Status No Antibody Screen NEGATIVE Spec Expiration Date 04/22/2019230304/19/19 Range/Units 09:01 WBC (3.8-10.6) k/uL RBC (4.30-5.90) m/uL Hgb (13.0-17.5) gm/dL Hct (39.0-53.0) % MCV (80.0-100.0) fL MCH (25.0-35.0) pg MCHC (31.0-37.0) g/dL RDW (11.5-15.5) % Plt Count (150-450) k/uL Neutrophils % (Manual) % Band Neutrophils % % Lymphocytes % (Manual) % Monocytes % (Manual) % Eosinophils % (Manual) % Neutrophils # (Manual) (1.3-7.7) k/uL Lymphocytes # (Manual) (1.0-4.8) k/uL Monocytes # (Manual) (0-1.0) k/uL Eosinophils # (Manual) (0-0.7) k/uL Nucleated RBCs (0-0) /100 WBC Manual Slide Review Hypochromasia Poikilocytosis Anisocytosis Macrocytosis PT (9.0-12.0) sec INR (<1.2) APTT (22.0-30.0) sec Sodium (137-145) mmol/L Potassium (3.5-5.1) mmol/L Chloride (98-107) mmol/L Carbon Dioxide (22-30) mmol/L Anion Gap mmol/L BUN (9-20) mg/dL Creatinine (0.66-1.25) mg/dL Est GFR (CKD-EPI)AfAm (>60 ml/min/1.73 sqM) Est GFR (CKD-EPI)NonAf (>60 ml/min/1.73 sqM) Glucose (74-99) mg/dL Plasma Lactic Acid [place] (0.7-2.0) mmol/L Calcium (8.4-10.2) mg/dL Magnesium (1.6-2.3) mg/dL Total Bilirubin (0.2-1.3) mg/dL AST (17-59) U/L ALT (4-49) U/L Alkaline Phosphatase (38-126) U/L Troponin I (0.000-0.034) ng/mL Total Protein (6.3-8.2) g/dL Albumin (3.5-5.0) g/dL Lipase (23-300) U/L Urine Color [place] Urine Appearance Cloudy (Clear) Urine pH 5.5 (5.0-8.0) Ur Specific [place] 1.022 (1.001-1.035) Urine Protein Trace H (Negative) Urine Glucose (UA) Negative (Negative) Urine Ketones Negative (Negative) Urine Blood Negative (Negative) Urine Nitrite Negative (Negative) Urine Bilirubin 1+ H (Negative) Urine Urobilinogen 8.0 (<2.0) mg/dL Ur Leukocyte Esterase Negative (Negative) Urine RBC 5 (0-5) /hpf Urine WBC 4 (0-5) /hpf Amorphous Sediment Rare H (None) /hpf Urine Mucus Few H (None) /hpf Urine Yeast (Budding) Occasional H (None) /hpf Blood Type Blood Type Recheck Bld Type Recheck Status Antibody Screen Spec Expiration Date Critical Care Time Critical Care Time: Yes Total Critical Care Time: 35 Disposition Clinical Impression: Upper gastrointestinal hemorrhage, H/O ETOH abuse, Elevated bilirubin, GI hemorrhage Disposition: ADMITTED IP TO THIS [facility] Condition: Serious Is patient prescribed a controlled substance at d/c from ED?: No Referrals: Bakari Rachel DO [Primary Care Provider] - 1-2 days Decision to Admit Reason: Admit from EC Decision Date: 04/19/19 Decision Time: 10:14
[2019-04-19 08:46] LABS: INR 2.1 (<1.2); Partial Thromboplastin Time 33.7 sec (22.0-30.0); Prothrombin Time 20.2 sec (9.0-12.0)
[2019-04-19 08:47] LABS: ALT 15 U/L (4-49); AST 38 U/L (17-59); African American GFR (CKD) >90 (>60 ml/min/1.73 sqM); Albumin 1.8 g/dL (3.5-5.0); Alkaline Phosphatase 116 U/L (38-126); Anion Gap 12 mmol/L; Blood Urea Nitrogen 19 mg/dL (9-20); Calcium 8.5 mg/dL (8.4-10.2); Carbon Dioxide 19 mmol/L (22-30); Chloride 107 mmol/L (98-107); Glucose 125 mg/dL (74-99); Magnesium 1.7 mg/dL (1.6-2.3); Non-African American GFR(CKD) >90 (>60 ml/min/1.73 sqM); Sodium 138 mmol/L (137-145); Total Bilirubin 4.2 mg/dL (0.2-1.3); Total Protein 6.8 g/dL (6.3-8.2)
[2019-04-19] MEDS: SODIUM CHLORIDE 0.9% 1,000 ML IV SCH ×2 (09:00→23:55)
[2019-04-19 09:05] LABS: Anisocytosis Slight; HCT 28.3 % (39.0-53.0); HGB 8.3 gm/dL (13.0-17.5); Hypochromasia Marked; MCH 28.4 pg (25.0-35.0); MCHC 29.5 g/dL (31.0-37.0); MCV 96.3 fL (80.0-100.0); Macrocytosis Slight; Mean Platelet Volume 7.9; Platelet Count 198 k/uL (150-450); Poikilocytosis Slight; RBC 2.93 m/uL (4.30-5.90); RDW 18.8 % (11.5-15.5); WBC 12.7 k/uL (3.8-10.6)
[2019-04-19 09:39] LABS: Band Neutrophils % 2 %; Eosinophils # (M) 0.13 k/uL (0-0.7); Lymphocytes # (M) 0.38 k/uL (1.0-4.8); Monocytes # (M) 0.25 k/uL (0-1.0); Neutrophils % (M) 92 %; Nucleated Red Blood Cells 0 /100 WBC (0-0); Total Cells Counted 100
[2019-04-19] MEDS: PANTOPRAZOLE 40 MG/10 ML VIAL IVP SCH ×2 (09:54→20:17)
--- NOTE | 2019-04-19 09:55 | CT ---
EXAMINATION TYPE: CT abdomen pelvis w con DATE OF EXAM: 04/19/2019 REFERENCE: Previous study dated 09/14/2018. HISTORY: Vomiting and distention HISTORY: Distention and vomiting CT DLP: 996.7 mGy Automated exposure control for dose reduction was used. TECHNIQUE: Helical acquisition through the abdomen and pelvis was obtained following the oral ingesti on of without Oral Contrast and following intravenous administration of 100 mL of Isovue 300. The marlyn a was reformatted in axial, coronal and sagittal projections. FINDINGS: There is a small left-sided effusion with associated relaxation atelectasis. There is a sm all patch of airspace disease in the right lower lobe. Within the abdomen, there is gross nodularity of the liver compatible with cirrhosis. The spleen is n ormal in size but has evidence of old granulomatous disease. The gallbladder wall appears thickened. There is a small amount of ascites. Both adrenal glands appear normal. There is a stable, simple appearing 2.2 cm cyst in the upper pole of the left kidney. The right kidne y appears unremarkable. I suspect some parapelvic cysts on the left. Limited views of the pancreas are unremarkable. There are extensive gastrosplenic varices present. There are esophageal varices present. There is moderate atheromatous calcification of the visualized arterial tree. There is no significant retroperitoneal, iliac or inguinal adenopathy. The bladder wall appears thickened but this may be due to lack of distention. There are scattered diverticula involving the sigmoid colon. The diagnosis of diverticulitis would be difficult to face of ascites. The appendix is not definitely visualized. There is mild, generalized prominence of the small bowel loops. There is evidence of small bowel zelda is with air-fluid levels present. No free air is seen. There is been a previous sideplate and maurilio fixation of the right hip. There is facet arthropathy in t he lower lumbar spine. IMPRESSION: 1. GENERALIZED CHANGES OF CIRRHOSIS WITH MARKED GASTROSPLENIC AND PARAESOPHAGEAL VARICES. 2. ASCITES. 3. SMALL LEFT-SIDED EFFUSION. 4. SMALL PATCHY RIGHT-SIDED AIRSPACE DISEASE. NUMBER CYSTIC CHANGE WITHIN THE LEFT KIDNEY. 6. THICKENING OF THE BLADDER WALL MAY BE DUE TO LACK OF DISTENTION. CORRELATE FOR CYSTITIS. 7. DEGENERATIVE CHANGES WITHIN THE LUMBAR SPINE. 8. POSTSURGICAL CHANGE INVOLVING THE RIGHT HIP.
[2019-04-19] MEDS ORDERED: cefTRIAXone IN SWFI 1,000 MG/10 ML SYRINGE IVP STA (09:58)
[2019-04-19 10:03] LABS: Amorphous Sediment,Urine Rare /hpf; Appearance,Urine Cloudy (Clear); Bilirubin,Urine 1+ (Negative); Blood,Urine Negative (Negative); Budding Yeast,Urine Occasional /hpf; Color,Urine Orange; Glucose,Urine (UA) Negative (Negative); Ketones,Urine Negative (Negative); Leukocyte Esterase,Urine Negative (Negative); Mucus,Urine Few /hpf; Nitrite,Urine Negative (Negative); PH, Urine 5.5 (5.0-8.0); Protein,Urine Trace (Negative); RBC,Urine 5 /hpf (0-5); Specific Gravity,Urine 1.022 (1.001-1.035); WBC,Urine 4 /hpf (0-5)
[2019-04-19] MEDS ORDERED: NALOXONE 0.4 MG/ML 1 ML VIAL IV PRN (10:09)
[2019-04-19] MEDS ORDERED: HYDROmorphone 0.5 MG/0.5 ML SYRINGE IVP PRN (10:09)
--- NOTE | 2019-04-19 10:58 | XR ---
EXAMINATION TYPE: XR chest 1V portable DATE OF EXAM: 04/19/2019 HISTORY: NG placement. REFERENCE: Previous study dated 03/16/2019. FINDINGS: An NG tube is in place. It is coiled within the esophagus. The lungs are clear. Pleural spaces are clear. The heart is not enlarged. IMPRESSION: MALPOSITIONING OF THE PATIENT'S NG TUBE.
[2019-04-19 11:12] LABS: Glucose,Whole Blood 120 mg/dL (75-99)
[2019-04-19] MEDS: OCTREOTIDE 50 MCG in SODIUM CHLORIDE 0.9% 100 ML IVPB ONE ×2 (11:27→11:30)
[2019-04-19] MEDS: OCTREOTIDE 500 MCG in SODIUM CHLORIDE 0.9% 250 ML IV SCH ×2 (12:09→22:13)
[2019-04-19] MEDS ORDERED: ONDANSETRON 4 MG/2 ML VIAL IVP PRN (13:01)
[2019-04-19 13:17] LABS: ALT 15 U/L (4-49); AST 39 U/L (17-59); African American GFR (CKD) >90 (>60 ml/min/1.73 sqM); Albumin 1.7 g/dL (3.5-5.0); Alkaline Phosphatase 110 U/L (38-126); Anion Gap 8 mmol/L; Blood Urea Nitrogen 24 mg/dL (9-20); Calcium 8.4 mg/dL (8.4-10.2); Carbon Dioxide 21 mmol/L (22-30); Chloride 109 mmol/L (98-107); Glucose 118 mg/dL (74-99); Non-African American GFR(CKD) >90 (>60 ml/min/1.73 sqM); Potassium 4.1 mmol/L (3.5-5.1); Sodium 138 mmol/L (137-145); Total Bilirubin 3.6 mg/dL (0.2-1.3); Total Protein 6.5 g/dL (6.3-8.2)
[2019-04-19 13:28] LABS: Appearance,Urine Clear (Clear); Bilirubin,Urine 1+ (Negative); Blood,Urine Negative (Negative); Color,Urine Dark Yellow; Glucose,Urine (UA) Negative (Negative); Ketones,Urine Negative (Negative); Leukocyte Esterase,Urine Negative (Negative); Nitrite,Urine Negative (Negative); Protein,Urine Negative (Negative)
[2019-04-19 13:41] LABS: Anisocytosis Slight; Basophils % (A) 0 %; Eosinophils % (A) 0 %; HCT 27.4 % (39.0-53.0); HGB 7.9 gm/dL (13.0-17.5); Hypochromasia Marked; Lymphocytes # (A) 0.5 k/uL (1.0-4.8); Lymphocytes % (A) 5 %; MCH 28.2 pg (25.0-35.0); MCV 97.2 fL (80.0-100.0); Macrocytosis Slight; Mean Platelet Volume 8.1; Monocytes # (A) 1.3 k/uL (0-1.0); Monocytes % (A) 12 %; Neutrophils # (A) 8.8 k/uL (1.3-7.7); Neutrophils % (A) 80 %; Platelet Count 158 k/uL (150-450); Poikilocytosis Slight; RBC 2.81 m/uL (4.30-5.90); RDW 18.8 % (11.5-15.5)
[2019-04-19 13:47] LABS: Specific Gravity,Urine >1.050 (1.001-1.035)
[2019-04-19 14:21] LABS: Polychromasia Present
[2019-04-19 15:25] LABS: Glucose,Whole Blood 112 mg/dL (75-99)
[2019-04-19] MEDS ORDERED: SODIUM CHLORIDE 0.9% 1,000 ML IV ONE (15:41)
--- NOTE | 2019-04-19 15:44 | P.CNPUL ---
History of Present Illness Consult date: 04/19/19 Chief complaint: GI bleeding History of present illness: 63-year-old male patient, presenting to the hospital because of upper GI bleeding. The patient had nausea for around 4 days and he had some coffee- ground emesis at the [facility] he stays. He had several episodes. He is on long-term anticoagulation with Eliquis. He was brought into hospital for further evaluation. The patient's blood pressure at time of admission was normal and the patient did not have any hypotension. The patient's hemoglobin at time of admission was 8.3. Currently is in intensive care unit for further monitoring. There is history of liver cirrhosis. Nevertheless, the patient has had multiple EGDs in 2019 for recurrent upper GI bleed. Overall he had received a total of 2 units of packed RBCs during the year of 2019. On his several EGDs that was done by gastroenterology, the patient was found to have a 1.5 x 2 cm duodenal ulcer along the duodenal sweep with a visible vessel and was getting and he has required multiple interventions including injections with epinephrine to control the bleeding. He does not have any melanotic stools for now. He does not have any esophageal varices. Dry clean and intact. Patient's INR is at 2.1 with a PT of 20.2 and a PTT of 33.7. He doesn't take any other form of antiplatelet agents. Has some mild lactic acidosis, admission is currently improving is down to 3.2 from 4.6 at baseline. Renal function is within normal limits. X-rays are also within normal limits. LFTs are normal with a bilirubin of 3.6. Troponins are negative. Albumin is at 1.7. UA is within normal limits with +1 bilirubin. Signs of any hepatic encephalopathy and the patient is awake and alert. 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 Integumentary: Reports foot/leg ulcers, Reports wounds, Denies pruritus, Denies rash Neurological: Denies numbness, Denies weakness Psychiatric: Denies anxiety, Denies depression Endocrine: Denies fatigue, Denies weight change Past Medical History Past Medical History: COPD, Deep Vein Thrombosis (DVT), GERD/Reflux, GI Bleed, Hypertension, Pneumonia, Vascular Disorder Additional Past Medical History / Comment(s): Pt recently admitted to [facility] on 02/14/19 with chronic cellulitis R foot with deformity/L hand contracture/L leg weakness and was transferred to [facility]. Pt states he had an angiogram done there. 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 Past Anesthesia/Blood Transfusion Reactions: No Reported Reaction Additional Past Anesthesia/Blood Transfusion Reaction / Comment(s): Pt has received blood without reaction. Smoking Status: Light tobacco smoker - Past Family History Mother Family Medical History: GERD/Reflux Additional Family Medical History / Comment(s): of crohn's disease Father Family Medical History: Diabetes Mellitus Medications and Allergies Home Medications Medication Instructions Recorded Confirmed Type Apixaban [Eliquis] 5 mg PO BID 03/07/19 04/19/19 History Multivit-Min/FA/Lycopen/Lutein 1 tab PO DAILY 03/07/19 04/19/19 History [Centrum Silver Men Tablet] Pantoprazole [Protonix] 40 mg PO BID 03/07/19 04/19/19 History Budesonide-Formot 160-4.5 Mcg 2 puff INHALATION RT-BID puff 03/21/19 04/19/19 Rx [Symbicort 160-4.5 Mcg Inhaler] Furosemide [Lasix] 20 mg PO BID@0900,1600 tab 03/21/19 04/19/19 Rx Ipratropium-Albuterol Nebulize 3 ml INHALATION RT-QID PRN 03/21/19 04/19/19 Rx [Duoneb 0.5 mg-3 mg/3 ml Soln] ampul.neb Metoprolol Tartrate [Lopressor] 25 mg PO BID tab 03/21/19 04/19/19 Rx Acetaminophen [Tylenol 8 Hour] 650 mg PO Q6H PRN 04/19/19 04/19/19 History Calcium Carbonate [Calcium] 600 mg PO BID 04/19/19 04/19/19 History Ferrous Sulfate [Feosol] 325 mg PO BID 04/19/19 04/19/19 History House Supplement 1 can PO BID 04/19/19 04/19/19 History Ipratropium-Albuterol Nebulize 3 ml INHALATION RT-Q8H PRN 04/19/19 04/19/19 History [Duoneb 0.5 mg-3 mg/3 ml Soln] Melatonin 5 mg PO DAILY 04/19/19 04/19/19 History Mupirocin 2% Oint [Bactroban 2% 1 applic TOPICAL HS 04/19/19 04/19/19 History Oint] Potassium Chloride ER [K-Dur 20] 20 meq PO BID 04/19/19 04/19/19 History Promethazine HCl 12.5 mg PO Q6H PRN 04/19/19 04/19/19 History Prostat 30 ml PO BID 04/19/19 04/19/19 History Allergies Allergy/AdvReac Type Severity Reaction Status Date / Time No Known Allergies Allergy Verified 04/19/19 10:42 Physical Exam Vitals: Vital Signs Temp Pulse Resp BP Pulse Ox 04/19/19 14:00 81 12 114/70 96 04/19/19 13:00 78 20 103/66 99 04/19/19 12:30 80 16 104/63 100 04/19/19 12:00 82 15 123/82 96 04/19/19 11:45 85 14 98 04/19/19 11:30 91 17 113/74 100 01/11/20 11:15 97.8 F 87 13 113/74 95 04/19/19 11:07 98.4 F 91 17 110/74 98 04/19/19 10:30 95 17 103/63 98 04/19/19 10:04 90 17 118/63 99 04/19/19 09:58 98.4 F 04/19/19 09:56 89 18 108/69 100 04/19/19 07:57 98.3 F 100 18 118/77 98 Intake and Output 04/19/19 04/19/19 04/19/19 06:59 14:59 22:59 Intake Total 450 Output Total 155 Balance 295 Intake: Intake, IV Titration 450 Amount Octreotide 50 mcg In 100 Sodium Chloride 0.9% 100 ml @ 200 mls/hr IVPB ONCE ONE Rx#:[id number] Octreotide 500 mcg In 50 Sodium Chloride 0.9% 250 ml @ 50 MCG/HR 25 mls/hr IV .Q10H [facility] Rx#: [id number] Sodium Chloride 0.9% 1, 300 000 ml @ 75 mls/hr IV . [id number] [facility] Rx#:[id number] Output: Urine 155 Other: Weight 72.575 kg Head exam was generally normal. There was no scleral icterus or corneal arcus. Mucous membranes were moist.Neck was supple and without jugular venous distension, thyromegaly, or carotid bruits. Carotids were easily palpable bilaterally. There was no adenopathy. Lung sounds are diminished otherwise clear. No wheezes overall currently crackles.Cardiac exam revealed the PMI to be normally situated and sized. The rhythm was regular and no extrasystoles were noted during several minutes of auscultation. The first and second heart sounds were normal and physiologic splitting of the second heart sound was noted. There were no murmurs, rubs, clicks, or gallops.Abdominal exam revealed normal bowel sounds. The abdomen was soft, non-tender, and without masses, organomegaly, or appreciable enlargement of the abdominal aorta. Right lower extremity above- knee amputation the patient has a healthy stump without any ulceration. Left lower extremity shows diminished pulses otherwise no acute abnormalities. There is some superficial ulceration of the skin which is well dry and there is no drainage at this point in time. Results - Laboratory Findings CBC and BMP: 04/19/19 12:45 04/19/19 12:45 PT/INR, D-dimer PT 20.2 sec (9.0-12.0) H 04/19/19 08:04 INR 2.1 (<1.2) H 04/19/19 08:04 Abnormal lab findings: Abnormal Labs 04/19/19 04/19/19 04/19/19 08:04 08:04 08:04 WBC 12.7 H RBC 2.93 L Hgb 8.3 L Hct 28.3 L MCHC 29.5 L RDW 18.8 H Neutrophils # Neutrophils # (Manual) 11.90 H Lymphocytes # Lymphocytes # (Manual) 0.38 L Monocytes # PT INR APTT Chloride Carbon Dioxide 19 L BUN Creatinine 0.61 L Glucose 125 H POC Glucose (mg/dL) Plasma Lactic Acid [place] 4.8 H* Total Bilirubin 4.2 H Albumin 1.8 L Ur Specific [place] Urine Protein Urine Bilirubin Amorphous Sediment Urine Mucus Urine Yeast (Budding) 04/19/19 04/19/19 04/19/19 08:04 09:01 11:11 WBC RBC Hgb Hct MCHC RDW Neutrophils # Neutrophils # (Manual) Lymphocytes # Lymphocytes # (Manual) Monocytes # PT 20.2 H INR 2.1 H APTT 33.7 H Chloride Carbon Dioxide BUN Creatinine Glucose POC Glucose (mg/dL) 120 H Plasma Lactic Acid [place] Total Bilirubin Albumin Ur Specific [place] Urine Protein Trace H Urine Bilirubin 1+ H Amorphous Sediment Rare H Urine Mucus Few H Urine Yeast (Budding) Occasional H 04/19/19 04/19/19 04/19/19 12:15 12:45 12:45 WBC 11.0 H RBC 2.81 L Hgb 7.9 L Hct 27.4 L MCHC 29.0 L RDW 18.8 H Neutrophils # 8.8 H Neutrophils # (Manual) Lymphocytes # 0.5 L Lymphocytes # (Manual) Monocytes # 1.3 H PT INR APTT Chloride 109 H Carbon Dioxide 21 L BUN 24 H Creatinine 0.60 L Glucose 118 H POC Glucose (mg/dL) Plasma Lactic Acid [place] Total Bilirubin 3.6 H Albumin 1.7 L Ur Specific [place] >1.050 H Urine Protein Urine Bilirubin 1+ H Amorphous Sediment Urine Mucus Urine Yeast (Budding) 04/19/19 04/19/19 12:45 15:23 WBC RBC Hgb Hct MCHC RDW Neutrophils # Neutrophils # (Manual) Lymphocytes # Lymphocytes # (Manual) Monocytes # PT INR APTT Chloride Carbon Dioxide BUN Creatinine Glucose POC Glucose (mg/dL) 112 H Plasma Lactic Acid [place] 3.2 H* Total Bilirubin Albumin Ur Specific [place] Urine Protein Urine Bilirubin Amorphous Sediment Urine Mucus Urine Yeast (Budding) Assessment and Plan Plan: 1 Acute GI bleeding in a patient with known history of alcoholism, and history of liver cirrhosis. Nevertheless, the patient has had previous EGDs in 2019 and treated for an EGD that were done showed no evidence of any portal hypertension. The patient's bleeding was allocated to be related to a duodenal ulcer measuring 1.5 x 2 cm in size. . He underwent EGD on 09/30/2018 was found to have a duodenal ulcer which was injected with epinephrine and the last EGD was done in January 2019 and it was injected by gastroenterology. Note that the patient is taking anticoagulation with Eliquis regarding a previous history of DVT in the right upper extremity. 2 history of liver cirrhosis 3 previous history of hepatic encephalopathy 4 COPD 5 history of upper extremity DVT on anticoagulants 6 coagulopathy as the patient is on Eliquis in addition to underlying liver cirrhosis 7 hypertension 8 alcoholism 9 peripheral vascular disease with previous amputation of the right lower extremity [id number] 10 chronic anemia, multifactorial and the patient's blood counts have dropped further with episodic GI bleeds Plan NPO IV protonix hold off octreotide DC Eliquis 1 liter bolus, NSS Repeat coag. in am GI consult will FU CBC Keep in the MICU for now
[2019-04-19] MEDS: MAGNESIUM SULFATE-D5W PMX 1 GM in DEXTROSE/WATER 1 100ML.BAG IVPB SCH ×2 (15:54→16:54)
[2019-04-19 18:30] LABS: Anisocytosis Slight; Basophils % (A) 1 %; Eosinophils % (A) 1 %; HCT 25.5 % (39.0-53.0); HGB 7.1 gm/dL (13.0-17.5); Hypochromasia Marked; Lymphocytes # (A) 0.8 k/uL (1.0-4.8); Lymphocytes % (A) 10 %; MCH 28.6 pg (25.0-35.0); MCHC 27.9 g/dL (31.0-37.0); Macrocytosis Moderate; Mean Platelet Volume 8.2; Monocytes # (A) 4.7 k/uL (0-1.0); Monocytes % (A) 60 %; Neutrophils % (A) 25 %; Platelet Count 124 k/uL (150-450); RBC 2.49 m/uL (4.30-5.90); RDW 18.9 % (11.5-15.5); WBC 7.8 k/uL (3.8-10.6)
[2019-04-19 18:31] LABS: MCV 102.4 fL (80.0-100.0)
[2019-04-19 18:34] LABS: Glucose,Whole Blood 162 mg/dL (75-99)
[2019-04-19 18:52] LABS: Poikilocytosis (M) Present; Polychromasia Present
[2019-04-19 23:57] LABS: Glucose,Whole Blood 110 mg/dL (75-99)
[2019-04-20 02:47] LABS: Anisocytosis Slight; HCT 22.4 % (39.0-53.0); Hypochromasia Marked; MCH 29.4 pg (25.0-35.0); MCHC 29.6 g/dL (31.0-37.0); MCV 99.5 fL (80.0-100.0); Macrocytosis Moderate; Mean Platelet Volume 7.9; Platelet Count 137 k/uL (150-450); RBC 2.25 m/uL (4.30-5.90); WBC 6.7 k/uL (3.8-10.6)
[2019-04-20 02:52] LABS: HGB 6.6 gm/dL (13.0-17.5)
[2019-04-20 04:14] LABS: Band Neutrophils % 9 %; Eosinophils # (M) 0.07 k/uL (0-0.7); Lymphocytes # (M) 0.47 k/uL (1.0-4.8); Monocytes # (M) 0.07 k/uL (0-1.0); Neutrophils % (M) 82 %; Nucleated Red Blood Cells 0 /100 WBC (0-0); Total Cells Counted 100
[2019-04-20 04:15] LABS: Poikilocytosis (M) Present; Polychromasia Present
--- NOTE | 2019-04-20 05:53 | XR ---
EXAMINATION TYPE: XR chest 1V DATE OF EXAM: 04/20/2019 HISTORY: ASSESS LUNGS. REFERENCE: Previous study dated 04/19/2019. FINDINGS: The patient is NG tube is been removed. The lungs are overinflated. The heart is not enlarged. Lungs are clear. Pleural spaces are clear. IMPRESSION: PLEASE CORRELATE FOR COPD.
[2019-04-20 05:57] LABS: Glucose,Whole Blood 101 mg/dL (75-99)
[2019-04-20] MEDS: PANTOPRAZOLE 40 MG/10 ML VIAL IVP SCH ×2 (08:19→21:14)
--- NOTE | 2019-04-20 08:48 | P.PN ---
Subjective Progress Note Date: 04/20/19 63-year-old male patient, presenting to the hospital because of upper GI bleed ing. The patient had nausea for around 4 days and he had some coffee-ground emesis at the [facility] stays. He had several episodes. He is on long- term anticoagulation with Eliquis. He was brought into hospital for further evaluation. The patient's blood pressure at time of admission was normal and the patient did not have any hypotension. The patient's hemoglobin at time of admission was 8.3. Currently is in intensive care unit for further monitoring. There is history of liver cirrhosis. Nevertheless, the patient has had multiple EGDs in 2019 for recurrent upper GI bleed. Overall he had received a total of 2 units of packed RBCs during the year of 2018. On his several EGDs that was done by gastroenterology, the patient was found to have a 1.5 x 2 cm duodenal ulcer along the duodenal sweep with a visible vessel and was getting and he has required multiple interventions including injections with epinephrine to control the bleeding. He does not have any melanotic stools for now. He does not have any esophageal varices. Dry clean and intact. Patient's INR is at 2.1 with a PT of 20.2 and a PTT of 33.7. He doesn't take any other form of antiplatelet agents. Has some mild lactic acidosis, admission is currently improving is down to 3.2 from 4.6 at baseline. Renal function is within normal limits. X-rays are also within normal limits. LFTs are normal with a bilirubin of 3.6. Troponins are negative. Albumin is at 1.7. UA is within normal limits with +1 bilirubin. Signs of any hepatic encephalopathy and the patient is awake and alert.For tomorrow This morning of 04/20/2019 the patient is awake and alert. He has not had any further episodes of bleeding. Hemoglobin monitoring showed that the hemoglobin dropped down to 6.6. He'll be receiving a unit of packed RBC. Is off anticoagulation. The plan is to do another endoscopy in a.m. He is off the octreotide drip and his receiving normal saline at the rate of 75 mL an hour. He has no complaints. In fact he is hungry and requesting some oral intake and it cleared him for some clear liquids for today. He is on IV Protonix. Chest x-ray is within normal limits. No acute abnormalities noted. Objective - Vital Signs Vital signs: Vital Signs Temp 97.8 F 04/20/19 07:04 Pulse 76 04/20/19 07:04 Resp 16 04/20/19 07:04 BP 95/54 04/20/19 07:04 Pulse Ox 95 04/20/19 07:04 Intake & Output 04/19/19 04/20/19 04/20/19 18:59 06:59 18:59 Intake Total 1875 1395 500 Output Total 315 475 115 Balance 1560 920 385 Weight 72.575 kg 65.5 kg Intake: IV 1045 190 0.9 NS 1045 190 Intake, IV Titration 1875 350 Amount Octreotide 50 mcg In 200 Sodium Chloride 0.9% 100 ml @ 200 mls/hr IVPB ONCE ONE Rx#:[id number] Octreotide 500 mcg In 150 275 Sodium Chloride 0.9% 250 ml @ 50 MCG/HR 25 mls/hr IV .Q10H [facility] Rx#: [id number] Sodium Chloride 0.9% 1, 525 75 000 ml @ 75 mls/hr IV . [id number] [facility] Rx#:[id number] Sodium Chloride 0.9% 1, 1000 000 ml @ 999 mls/hr IV . Q1H1M [facility] Rx#:[id number] Blood Product 0 310 Rc Irr As1 Unit 0 310 [id number] Output: Urine 315 475 115 Other: Voiding Method Indwelling Catheter Indwelling Catheter - Exam Head exam was generally normal. There was no scleral icterus or corneal arcus. Mucous membranes were moist.Neck was supple and without jugular venous di stension, thyromegaly, or carotid bruits. Carotids were easily palpable bilaterally. There was no adenopathy. Lung sounds are diminished otherwise clear. No wheezes overall currently crackles.Cardiac exam revealed the PMI to be normally situated and sized. The rhythm was regular and no extrasystoles were noted during several minutes of auscultation. The first and second heart sounds were normal and physiologic splitting of the second heart sound was noted. There were no murmurs, rubs, clicks, or gallops.Abdominal exam revealed normal bowel sounds. The abdomen was soft, non-tender, and without masses, organomegaly, or appreciable enlargement of the abdominal aorta. Right lower extremity above- knee amputation the patient has a healthy stump without any ulceration. Left lower extremity shows diminished pulses otherwise no acute abnormalities. There is some superficial ulceration of the skin which is well dry and there is no drainage at this point in time. - Labs CBC & Chem 7: 04/20/19 02:21 04/19/19 12:45 Labs: Abnormal Lab Results - Last 24 Hours (Table) 04/19/19 04/19/19 04/19/19 Range/Units 08:04 08:04 08:04 WBC 12.7 H (3.8-10.6) k/uL RBC 2.93 L (4.30-5.90) m/uL Hgb 8.3 L (13.0-17.5) gm/dL Hct 28.3 L (39.0-53.0) % MCV (80.0-100.0) fL MCHC 29.5 L (31.0-37.0) g/dL RDW 18.8 H (11.5-15.5) % Plt Count (150-450) k/uL Neutrophils # (1.3-7.7) k/uL Neutrophils # (Manual) 11.90 H (1.3-7.7) k/uL Lymphocytes # (1.0-4.8) k/uL Lymphocytes # (Manual) 0.38 L (1.0-4.8) k/uL Monocytes # (0-1.0) k/uL PT (9.0-12.0) sec INR (<1.2) APTT (22.0-30.0) sec Chloride (98-107) mmol/L Carbon Dioxide 19 L (22-30) mmol/L BUN (9-20) mg/dL Creatinine 0.61 L (0.66-1.25) mg/dL Glucose 125 H (74-99) mg/dL POC Glucose (mg/dL) (75-99) mg/dL Plasma Lactic Acid [place] 4.8 H* (0.7-2.0) mmol/L Total Bilirubin 4.2 H (0.2-1.3) mg/dL Albumin 1.8 L (3.5-5.0) g/dL Ur Specific [place] (1.001-1.035) Urine Protein (Negative) Urine Bilirubin (Negative) Amorphous Sediment (None) /hpf Urine Mucus (None) /hpf Urine Yeast (Budding) (None) /hpf Crossmatch 04/19/19 04/19/19 04/19/19 Range/Units 08:04 08:04 09:01 WBC (3.8-10.6) k/uL RBC (4.30-5.90) m/uL Hgb (13.0-17.5) gm/dL Hct (39.0-53.0) % MCV (80.0-100.0) fL MCHC (31.0-37.0) g/dL RDW (11.5-15.5) % Plt Count (150-450) k/uL Neutrophils # (1.3-7.7) k/uL Neutrophils # (Manual) (1.3-7.7) k/uL Lymphocytes # (1.0-4.8) k/uL Lymphocytes # (Manual) (1.0-4.8) k/uL Monocytes # (0-1.0) k/uL PT 20.2 H (9.0-12.0) sec INR 2.1 H (<1.2) APTT 33.7 H (22.0-30.0) sec Chloride (98-107) mmol/L Carbon Dioxide (22-30) mmol/L BUN (9-20) mg/dL Creatinine (0.66-1.25) mg/dL Glucose (74-99) mg/dL POC Glucose (mg/dL) (75-99) mg/dL Plasma Lactic Acid [place] (0.7-2.0) mmol/L Total Bilirubin (0.2-1.3) mg/dL Albumin (3.5-5.0) g/dL Ur Specific [place] (1.001-1.035) Urine Protein Trace H (Negative) Urine Bilirubin 1+ H (Negative) Amorphous Sediment Rare H (None) /hpf Urine Mucus Few H (None) /hpf Urine Yeast (Budding) Occasional H (None) /hpf Crossmatch See Detail 04/19/19 04/19/19 04/19/19 Range/Units 11:11 12:15 12:45 WBC 11.0 H (3.8-10.6) k/uL RBC 2.81 L (4.30-5.90) m/uL Hgb 7.9 L (13.0-17.5) gm/dL Hct 27.4 L (39.0-53.0) % MCV (80.0-100.0) fL MCHC 29.0 L (31.0-37.0) g/dL RDW 18.8 H (11.5-15.5) % Plt Count (150-450) k/uL Neutrophils # 8.8 H (1.3-7.7) k/uL Neutrophils # (Manual) (1.3-7.7) k/uL Lymphocytes # 0.5 L (1.0-4.8) k/uL Lymphocytes # (Manual) (1.0-4.8) k/uL Monocytes # 1.3 H (0-1.0) k/uL PT (9.0-12.0) sec INR (<1.2) APTT (22.0-30.0) sec Chloride (98-107) mmol/L Carbon Dioxide (22-30) mmol/L BUN (9-20) mg/dL Creatinine (0.66-1.25) mg/dL Glucose (74-99) mg/dL POC Glucose (mg/dL) 120 H (75-99) mg/dL Plasma Lactic Acid [place] (0.7-2.0) mmol/L Total Bilirubin (0.2-1.3) mg/dL Albumin (3.5-5.0) g/dL Ur Specific [place] >1.050 H (1.001-1.035) Urine Protein (Negative) Urine Bilirubin 1+ H (Negative) Amorphous Sediment (None) /hpf Urine Mucus (None) /hpf Urine Yeast (Budding) (None) /hpf Crossmatch 04/19/19 04/19/19 04/19/19 Range/Units 12:45 12:45 15:23 WBC (3.8-10.6) k/uL RBC (4.30-5.90) m/uL Hgb (13.0-17.5) gm/dL Hct (39.0-53.0) % MCV (80.0-100.0) fL MCHC (31.0-37.0) g/dL RDW (11.5-15.5) % Plt Count (150-450) k/uL Neutrophils # (1.3-7.7) k/uL Neutrophils # (Manual) (1.3-7.7) k/uL Lymphocytes # (1.0-4.8) k/uL Lymphocytes # (Manual) (1.0-4.8) k/uL Monocytes # (0-1.0) k/uL PT (9.0-12.0) sec INR (<1.2) APTT (22.0-30.0) sec Chloride 109 H (98-107) mmol/L Carbon Dioxide 21 L (22-30) mmol/L BUN 24 H (9-20) mg/dL Creatinine 0.60 L (0.66-1.25) mg/dL Glucose 118 H (74-99) mg/dL POC Glucose (mg/dL) 112 H (75-99) mg/dL Plasma Lactic Acid [place] 3.2 H* (0.7-2.0) mmol/L Total Bilirubin 3.6 H (0.2-1.3) mg/dL Albumin 1.7 L (3.5-5.0) g/dL Ur Specific [place] (1.001-1.035) Urine Protein (Negative) Urine Bilirubin (Negative) Amorphous Sediment (None) /hpf Urine Mucus (None) /hpf Urine Yeast (Budding) (None) /hpf Crossmatch 04/19/19 04/19/19 04/19/19 Range/Units 18:01 18:32 23:56 WBC (3.8-10.6) k/uL RBC 2.49 L (4.30-5.90) m/uL Hgb 7.1 L (13.0-17.5) gm/dL Hct 25.5 L (39.0-53.0) % MCV 102.4 H D (80.0-100.0) fL MCHC 27.9 L (31.0-37.0) g/dL RDW 18.9 H (11.5-15.5) % Plt Count 124 L (150-450) k/uL Neutrophils # (1.3-7.7) k/uL Neutrophils # (Manual) (1.3-7.7) k/uL Lymphocytes # 0.8 L (1.0-4.8) k/uL Lymphocytes # (Manual) (1.0-4.8) k/uL Monocytes # 4.7 H (0-1.0) k/uL PT (9.0-12.0) sec INR (<1.2) APTT (22.0-30.0) sec Chloride (98-107) mmol/L Carbon Dioxide (22-30) mmol/L BUN (9-20) mg/dL Creatinine (0.66-1.25) mg/dL Glucose (74-99) mg/dL POC Glucose (mg/dL) 162 H 110 H (75-99) mg/dL Plasma Lactic Acid [place] (0.7-2.0) mmol/L Total Bilirubin (0.2-1.3) mg/dL Albumin (3.5-5.0) g/dL Ur Specific [place] (1.001-1.035) Urine Protein (Negative) Urine Bilirubin (Negative) Amorphous Sediment (None) /hpf Urine Mucus (None) /hpf Urine Yeast (Budding) (None) /hpf Crossmatch 04/20/19 04/20/19 Range/Units 02:21 05:56 WBC (3.8-10.6) k/uL RBC 2.25 L (4.30-5.90) m/uL Hgb 6.6 L* (13.0-17.5) gm/dL Hct 22.4 L (39.0-53.0) % MCV (80.0-100.0) fL MCHC 29.6 L (31.0-37.0) g/dL RDW 19.0 H (11.5-15.5) % Plt Count 137 L (150-450) k/uL Neutrophils # (1.3-7.7) k/uL Neutrophils # (Manual) (1.3-7.7) k/uL Lymphocytes # (1.0-4.8) k/uL Lymphocytes # (Manual) 0.47 L (1.0-4.8) k/uL Monocytes # (0-1.0) k/uL PT (9.0-12.0) sec INR (<1.2) APTT (22.0-30.0) sec Chloride (98-107) mmol/L Carbon Dioxide (22-30) mmol/L BUN (9-20) mg/dL Creatinine (0.66-1.25) mg/dL Glucose (74-99) mg/dL POC Glucose (mg/dL) 101 H (75-99) mg/dL Plasma Lactic Acid [place] (0.7-2.0) mmol/L Total Bilirubin (0.2-1.3) mg/dL Albumin (3.5-5.0) g/dL Ur Specific [place] (1.001-1.035) Urine Protein (Negative) Urine Bilirubin (Negative) Amorphous Sediment (None) /hpf Urine Mucus (None) /hpf Urine Yeast (Budding) (None) /hpf Crossmatch Assessment and Plan Plan: 1 Acute GI bleeding in a patient with known history of alcoholism, and history of liver cirrhosis. Nevertheless, the patient has had previous EGDs in 2019 and treated for an EGD that were done showed no evidence of any portal hypertension. The patient's bleeding was allocated to be related to a duodenal ulcer measuring 1.5 x 2 cm in size. . He underwent EGD on 09/30/2018 was found to have a duodenal ulcer which was injected with epinephrine and the last EGD was done in January 2019 and it was injected by gastroenterology. Note that the patient is taking anticoagulation with Eliquis regarding a previous history of DVT in the right upper extremity. Currently the anticoagulation is on hold and the patient is off Eliquis. His hemoglobin dropped down to 6.6. No active bleeding. He'll be receiving a unit of packed RBC and in EGD will be done to [facility]. 2 history of liver cirrhosis 3 previous history of hepatic encephalopathy 4 COPD 5 history of upper extremity DVT on anticoagulants 6 coagulopathy as the patient is on Eliquis in addition to underlying liver cirrhosis 7 hypertension 8 alcoholism 9 peripheral vascular disease with previous amputation of the right lower extremity [id number] 10 chronic anemia, multifactorial and the patient's blood counts have dropped further with episodic GI bleeds Plan Allow clear liquid diet until evening and after midnight will be placed nothing by mouth for morning endoscopy to reevaluate the duodenal ulcer IV protonix hold off octreotide DC Eliquis Repeat coag. in am is pending for now GI consult was performed will FU CBC Showed a hemoglobin of 6.6 and the patient will be transfused with a unit of packed RBC and will continue to monitor hemoglobin Keep in the MICU for now
[2019-04-20 08:51] LABS: Anisocytosis Slight; HCT 26.9 % (39.0-53.0); HGB 7.6 gm/dL (13.0-17.5); Hypochromasia Marked; MCH 27.7 pg (25.0-35.0); MCHC 28.4 g/dL (31.0-37.0); MCV 97.6 fL (80.0-100.0); Macrocytosis Slight; Mean Platelet Volume 8.3; Platelet Count 136 k/uL (150-450); Poikilocytosis Moderate; RBC 2.76 m/uL (4.30-5.90); RDW 19.4 % (11.5-15.5)
[2019-04-20] MEDS: OCTREOTIDE 500 MCG in SODIUM CHLORIDE 0.9% 250 ML IV SCH (08:56)
[2019-04-20 09:01] LABS: African American GFR (CKD) >90 (>60 ml/min/1.73 sqM); Anion Gap 2 mmol/L; Blood Urea Nitrogen 24 mg/dL (9-20); Calcium 7.6 mg/dL (8.4-10.2); Carbon Dioxide 22 mmol/L (22-30); Chloride 116 mmol/L (98-107); Glucose 87 mg/dL (74-99); Magnesium 1.9 mg/dL (1.6-2.3); Non-African American GFR(CKD) >90 (>60 ml/min/1.73 sqM); Potassium 3.9 mmol/L (3.5-5.1); Sodium 140 mmol/L (137-145)
[2019-04-20 09:21] LABS: INR 1.8 (<1.2); Partial Thromboplastin Time 36.4 sec (22.0-30.0); Prothrombin Time 17.9 sec (9.0-12.0)
--- NOTE | 2019-04-20 11:07 | CONS ---
CONSULTATION DATE OF DICTATION: April 20, 2019 REQUESTING PHYSICIAN: Dr. Rachel. REASON FOR CONSULTATION: Acute GI bleed. HISTORY OF PRESENT ILLNESS: The patient is a 63-year-old pleasant white male with multiple previous hospitalizations with upper GI bleed. He had an upper endoscopy done January of 2019 by me that showed a 2 cm duodenal bulbar ulcer for which he underwent endoscopic treatment. The patient has been on long-term anticoagulation with Eliquis for history of DVT. He is in a retirement and apparently had 3 episodes of coffee-ground emesis and hence he was sent to the emergency room and subsequently admitted to the intensive care unit. The patient has a history of alcoholic liver disease diagnosed in the past, but no history of esophageal varices on the prior upper endoscopy in January of 2019. Since being in the ICU, the patient did not have any further episodes of bleeding. No melena. NG tube was attempted but patient refused it. His initial hemoglobin at time of admission to the hospital, was 7.1 and subsequently dropped to 6.6, and he is currently receiving 1 unit of PRBC transfusion. Overall, he is feeling well. He denies any abdominal pain. He also had a prior upper endoscopy in December of [address] Liriano that showed a 2 cm duodenal bulbar ulcer. PAST MEDICAL HISTORY: Significant for history of DVT on Eliquis. Last dose was yesterday morning. He has history of gastrointestinal bleed. Peptic ulcer disease. Hypertension. Peripheral vascular disease, COPD. PAST SURGICAL HISTORY: Right hip ORIF, right ankle tendon repair, multiple EGDs as mentioned above. Last one in January of 2009. MEDICATIONS: At home include Eliquis, multivitamin, Protonix, Lasix, DuoNeb, Lopressor, Tylenol, , Feosol, melatonin, potassium chloride, promethazine, and ProStat. ALLERGIES: None. SOCIAL HISTORY: Remote history of smoking, heavy alcohol use in the past, which he quit drinking. REVIEW OF SYSTEMS: CARDIOPULMONARY: He denies any chest pain, shortness of breath. GENITOURINARY: No dysuria or hematuria. MUSCULOSKELETAL: Chronic back pain and lower extremity pain. NEUROLOGY: Weakness and presently wheelchair-bound. ENT: Vision unremarkable. CONSTITUTIONAL: No recent weight loss. No fever, chills, night sweats. PHYSICAL EXAMINATION: He appears comfortable. No apparent distress. VITAL SIGNS: Stable. Blood pressure is 111/62, pulse is 62, temperature 97.8. HEENT examination unremarkable. Conjunctivae pink. Sclerae anicteric. Oral cavity no lesions. No JVD or lymph node enlargement. Chest was clear to auscultation. HEART: Regular rate and rhythm. ABDOMEN: Soft. Bowel sounds are positive. It was nontender. Nondistended. EXTREMITIES: No pedal edema. SKIN no rashes. NEUROLOGIC: Alert and oriented x3. No focal deficits. INITIAL LABS: At the time of admission yesterday, WBC 7.8, hemoglobin 7.1, platelets 124. This morning hemoglobin was 6.6, and he received one unit of blood transfusion and repeat hemoglobin is 7.6. BUN was 24 and creatinine was 0.64. INR yesterday was 2.1. No INR available from today. IMPRESSION: 1. Acute upper gastrointestinal bleed with multiple episodes of coffee-ground emesis in this patient with known history of peptic ulcer disease. Last upper endoscopy in January of 2009 done by me showed 1.5-2 cm duodenal bulbar ulcer with active bleeding, which was treated endoscopically with an Endoclip placement and injection of epinephrine. He was maintained on Protonix 40 mg twice daily on an outpatient basis and now presents with recurrent upper GI bleed. Most likely related to recurrent peptic ulcer disease. He dropped his hemoglobin to 6.6 requiring one unit of PRBC transfusion. 2. History of alcoholic liver disease. 3. Deep vein thrombosis on Eliquis, currently on hold. Last dose was yesterday morning. 4. Coagulopathy secondary to Eliquis, which is currently on hold. We will repeat PT/INR today. RECOMMENDATIONS: 1. Clear liquid diet. 2. Continue IV Protonix 40 mg q.12 hours. 3. We will stop the octreotide. 4. Hold Eliquis. 5. CBC every 6 hours and transfuse if the hemoglobin is less than 7. 6. We will proceed with an upper endoscopy tomorrow. Discussed with the patient benefits and complications of the procedure and he is agreeable to it. Thank you for this consultation. MMODL / IJN: [id number] /
[2019-04-20 13:41] LABS: Band Neutrophils % 1 %; Eosinophils # (M) 0.06 k/uL (0-0.7); Lymphocytes # (M) 0.12 k/uL (1.0-4.8); Monocytes # (M) 0.06 k/uL (0-1.0); Neutrophils % (M) 95 %; Nucleated Red Blood Cells 0 /100 WBC (0-0); Total Cells Counted 100
[2019-04-20 13:42] LABS: Polychromasia Present
[2019-04-20 14:25] LABS: Anisocytosis Slight; HCT 27.9 % (39.0-53.0); HGB 8.4 gm/dL (13.0-17.5); Hypochromasia Marked; MCH 28.3 pg (25.0-35.0); MCV 94.3 fL (80.0-100.0); Macrocytosis Slight; Mean Platelet Volume 8.5; Platelet Count 112 k/uL (150-450); Poikilocytosis Moderate; RBC 2.96 m/uL (4.30-5.90); RDW 19.4 % (11.5-15.5); WBC 6.3 k/uL (3.8-10.6)
[2019-04-20 14:44] LABS: Band Neutrophils % 2 %; Eosinophils # (M) 0.06 k/uL (0-0.7); Lymphocytes # (M) 0.25 k/uL (1.0-4.8); Monocytes # (M) 0.13 k/uL (0-1.0); Neutrophils % (M) 91 %; Nucleated Red Blood Cells 0 /100 WBC (0-0); Total Cells Counted 100
[2019-04-20 14:45] LABS: Poikilocytosis (M) Present; Polychromasia Present
[2019-04-20] MEDS: SODIUM CHLORIDE 0.9% 1,000 ML IV SCH (18:32)
--- NOTE | 2019-04-20 20:18 | P.HPIM ---
History of Present Illness H&P Date: 04/20/19 Chief Complaint: GI bleed History of presenting complaint: This is a patient with prior history of GI bleeds. He hasn't EGD in January 2019 that showed her to 68. Duodenal bulb ulcer. Patient had been on eliquis for history of DVT. He had 3 episodes of coffee-ground emesis of the F her bills for the same. Has known alcoholic liver disease. Patient refused NG tube initial hemoglobin was around 7. Chronic stable medical conditions include GERD, hypertension, chronic liver disease questionable cirrhosis lymphedema left lower extremity. Has a congested cough. Some sputum production. Some wheezing. Patient had been a smoker. Review of systems: GEN.: Tired EYES: None HEENT: None NECK: None RESPIRATORY: Cough shortness of breath some wheezing CARDIOVASCULAR: None GASTROINTESTINAL: As above GENITOURINARY: None MUSCULOSKELETAL: None LYMPHATICS: None HEMATOLOGICAL: None PSYCHIATRY: None NEUROLOGICAL: None Social history: Long-standing smoker. Currently at [facility]. Physical examination: VITAL SIGNS: 97.8, 76, 16, 95/54, 95% on 2 L GENERAL: BMI 22.3, laying in bed slightly unkempt. EYES: Pupils equal. Conjunctiva palel. HEENT: [External appearance of nose and ears normal, oral cavity dry. NECK: JVD not raised; masses not palpable. HEART: First and second heart sounds are normal; some edema. LUNGS: Respiratory rate increased, decreased breaths on some wheezing. ABDOMEN: Soft, nontender, liver spleen not palpable, no masses palpable. PSYCH: Alert and oriented x3; mood and affect normal. NEUROLOGICAL: Cranial nerves grossly intact; no facial asymmetry, power and sensation grossly intact. LYMPHATICS: No lymph nodes palpable in the axilla and neck EXTREMITIES: Right above-knee hypertension INVESTIGATIONS, reviewed in the clinical context: White count 7.8 hemoglobin 7.1 platelets 124 Potassium 4.1 124 creatinine 0.60 albumin 1.7 Computed tomography scan abdomen-possible infiltrate extensive gastrosplenic releases present esophageal releases present. Scattered diverticula in the sigmoid colon. Generalized changes of cirrhosis some ascites Assessment: -Patient presented with coffee-ground emesis in a patient with known duodenal bulb ulcer with EGD in January 2019 -Chronic liver disease with evidence of cirrhosis on the computed tomography scan with evidence of ascites and gastrosplenic varices -Esophageal varices -Acute blood loss anemia from GI bleed, requiring blood transfusion -Acute COPD exacerbation and a smoker -Chronic nicotine dependence cigarette smoker -DVT for which patient is on eliquis currently held Plan: Patient be transfused blood. GI was consulted. [employer] consulted. Patient put on bronchodilator steroids. H&H will be closely followed. Patient is currently on a clear liquid diet and later endoscopy. Care was discussed with the patient. Questions were answered. Also put on PPIs. Eliquis has been held Past Medical History Past Medical History: COPD, Deep Vein Thrombosis (DVT), GERD/Reflux, GI Bleed, Hypertension, Pneumonia, Vascular Disorder Additional Past Medical History / Comment(s): Pt recently admitted to [facility] on 02/14/19 with chronic cellulitis R foot with deformity/L hand contracture/L leg weakness and was transferred to [facility]. Pt states he had an angiogram done there. 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 Past Anesthesia/Blood Transfusion Reactions: No Reported Reaction Additional Past Anesthesia/Blood Transfusion Reaction / Comment(s): Pt has received blood without reaction. Smoking Status: Light tobacco smoker - Past Family History Mother Family Medical History: GERD/Reflux Additional Family Medical History / Comment(s): of crohn's disease Father Family Medical History: Diabetes Mellitus Medications and Allergies Home Medications Medication Instructions Recorded Confirmed Type Apixaban [Eliquis] 5 mg PO BID 03/07/19 04/19/19 History Multivit-Min/FA/Lycopen/Lutein 1 tab PO DAILY 03/07/19 04/19/19 History [Centrum Silver Men Tablet] Pantoprazole [Protonix] 40 mg PO BID 03/07/19 04/19/19 History Budesonide-Formot 160-4.5 Mcg 2 puff INHALATION RT-BID puff 03/21/19 04/19/19 R x [Symbicort 160-4.5 Mcg Inhaler] Furosemide [Lasix] 20 mg PO BID@0900,1600 tab 03/21/19 04/19/19 Rx Ipratropium-Albuterol Nebulize 3 ml INHALATION RT-QID PRN 03/21/19 04/19/19 Rx [Duoneb 0.5 mg-3 mg/3 ml Soln] ampul.neb Metoprolol Tartrate [Lopressor] 25 mg PO BID tab 03/21/19 04/19/19 Rx Acetaminophen [Tylenol 8 Hour] 650 mg PO Q6H PRN 04/19/19 04/19/19 History Calcium Carbonate [Calcium] 600 mg PO BID 04/19/19 04/19/19 History Ferrous Sulfate [Feosol] 325 mg PO BID 04/19/19 04/19/19 History House Supplement 1 can PO BID 04/19/19 04/19/19 History Ipratropium-Albuterol Nebulize 3 ml INHALATION RT-Q8H PRN 04/19/19 04/19/19 History [Duoneb 0.5 mg-3 mg/3 ml Soln] Melatonin 5 mg PO DAILY 04/19/19 04/19/19 History Mupirocin 2% Oint [Bactroban 2% 1 applic TOPICAL HS 04/19/19 04/19/19 History Oint] Potassium Chloride ER [K-Dur 20] 20 meq PO BID 04/19/19 04/19/19 History Promethazine HCl 12.5 mg PO Q6H PRN 04/19/19 04/19/19 History Prostat 30 ml PO BID 04/19/19 04/19/19 History Allergies Allergy/AdvReac Type Severity Reaction Status Date / Time No Known Allergies Allergy Verified 04/19/19 10:42 Physical Exam Vitals: Vital Signs Temp Pulse Resp BP Pulse Ox 04/20/19 00:00 97.6 F 90 21 103/54 93 L 04/19/19 23:00 82 12 108/66 98 04/19/19 22:00 76 11 L 97 04/19/19 21:00 82 13 110/66 98 04/19/19 20:00 97.5 F L 83 14 107/64 99 04/19/19 19:00 82 15 102/60 99 04/19/19 18:00 80 13 106/68 98 04/19/19 17:00 89 24 113/72 98 04/19/19 16:00 99.0 F 85 16 111/59 99 04/19/19 15:00 86 14 114/72 99 04/19/19 14:00 81 12 114/70 96 04/19/19 13:00 78 20 103/66 99 04/19/19 12:30 80 16 104/63 100 04/19/19 12:00 82 15 123/82 96 04/19/19 11:45 85 14 98 04/19/19 11:30 91 17 113/74 100 04/19/19 11:15 97.8 F 87 13 113/74 95 04/19/19 11:07 98.4 F 91 17 110/74 98 04/19/19 10:30 95 17 103/63 98 04/19/19 10:04 90 17 118/63 99 04/19/19 09:58 98.4 F 04/19/19 09:56 89 18 108/69 100 04/19/19 07:57 98.3 F 100 18 118/77 98 Intake and Output 04/19/19 04/19/19 04/20/19 14:59 22:59 06:59 Intake Total 450 2060 190 Output Total 155 315 80 Balance 295 1745 110 Intake: IV 285 190 0.9 NS 285 190 Intake, IV Titration 450 1775 Amount Octreotide 50 mcg In 100 100 Sodium Chloride 0.9% 100 ml @ 200 mls/hr IVPB ONCE ONE Rx#:[id number] Octreotide 500 mcg In 50 375 Sodium Chloride 0.9% 250 ml @ 50 MCG/HR 25 mls/hr IV .Q10H [facility] Rx#: [id number] Sodium Chloride 0.9% 1, 300 300 000 ml @ 75 mls/hr IV . [id number] [facility] Rx#:[id number] Sodium Chloride 0.9% 1, 1000 000 ml @ 999 mls/hr IV . Q1H1M ONE Rx#:[id number] Output: Urine 155 315 80 Other: Voiding Method Indwelling Catheter Indwelling Catheter Weight 72.575 kg Results CBC & Chem 7: 04/20/19 14:05 04/20/19 08:18 Labs: Abnormal Lab Results - Last 24 Hours (Table) 04/19/19 04/19/19 04/19/19 Range/Units 08:04 08:04 08:04 WBC 12.7 H (3.8-10.6) k/uL RBC 2.93 L (4.30-5.90) m/uL Hgb 8.3 L (13.0-17.5) gm/dL Hct 28.3 L (39.0-53.0) % MCV (80.0-100.0) fL MCHC 29.5 L (31.0-37.0) g/dL RDW 18.8 H (11.5-15.5) % Plt Count (150-450) k/uL Neutrophils # (1.3-7.7) k/uL Neutrophils # (Manual) 11.90 H (1.3-7.7) k/uL Lymphocytes # (1.0-4.8) k/uL Lymphocytes # (Manual) 0.38 L (1.0-4.8) k/uL Monocytes # (0-1.0) k/uL PT (9.0-12.0) sec INR (<1.2) APTT (22.0-30.0) sec Chloride (98-107) mmol/L Carbon Dioxide 19 L (22-30) mmol/L BUN (9-20) mg/dL Creatinine 0.61 L (0.66-1.25) mg/dL Glucose 125 H (74-99) mg/dL POC Glucose (mg/dL) (75-99) mg/dL Plasma Lactic Acid [place] 4.8 H* (0.7-2.0) mmol/L Total Bilirubin 4.2 H (0.2-1.3) mg/dL Albumin 1.8 L (3.5-5.0) g/dL Ur Specific [place] (1.001-1.035) Urine Protein (Negative) Urine Bilirubin (Negative) Amorphous Sediment (None) /hpf Urine Mucus (None) /hpf Urine Yeast (Budding) (None) /hpf 04/19/19 04/19/19 04/19/19 Range/Units 08:04 09:01 11:11 WBC (3.8-10.6) k/uL RBC (4.30-5.90) m/uL Hgb (13.0-17.5) gm/dL Hct (39.0-53.0) % MCV (80.0-100.0) fL MCHC (31.0-37.0) g/dL RDW (11.5-15.5) % Plt Count (150-450) k/uL Neutrophils # (1.3-7.7) k/uL Neutrophils # (Manual) (1.3-7.7) k/uL Lymphocytes # (1.0-4.8) k/uL Lymphocytes # (Manual) (1.0-4.8) k/uL Monocytes # (0-1.0) k/uL PT 20.2 H (9.0-12.0) sec INR 2.1 H (<1.2) APTT 33.7 H (22.0-30.0) sec Chloride (98-107) mmol/L Carbon Dioxide (22-30) mmol/L BUN (9-20) mg/dL Creatinine (0.66-1.25) mg/dL Glucose (74-99) mg/dL POC Glucose (mg/dL) 120 H (75-99) mg/dL Plasma Lactic Acid [place] (0.7-2.0) mmol/L Total Bilirubin (0.2-1.3) mg/dL Albumin (3.5-5.0) g/dL Ur Specific [place] (1.001-1.035) Urine Protein Trace H (Negative) Urine Bilirubin 1+ H (Negative) Amorphous Sediment Rare H (None) /hpf Urine Mucus Few H (None) /hpf Urine Yeast (Budding) Occasional H (None) /hpf 04/19/19 04/19/19 04/19/19 Range/Units 12:15 12:45 12:45 WBC 11.0 H (3.8-10.6) k/uL RBC 2.81 L (4.30-5.90) m/uL Hgb 7.9 L (13.0-17.5) gm/dL Hct 27.4 L (39.0-53.0) % MCV (80.0-100.0) fL MCHC 29.0 L (31.0-37.0) g/dL RDW 18.8 H (11.5-15.5) % Plt Count (150-450) k/uL Neutrophils # 8.8 H (1.3-7.7) k/uL Neutrophils # (Manual) (1.3-7.7) k/uL Lymphocytes # 0.5 L (1.0-4.8) k/uL Lymphocytes # (Manual) (1.0-4.8) k/uL Monocytes # 1.3 H (0-1.0) k/uL PT (9.0-12.0) sec INR (<1.2) APTT (22.0-30.0) sec Chloride 109 H (98-107) mmol/L Carbon Dioxide 21 L (22-30) mmol/L BUN 24 H (9-20) mg/dL Creatinine 0.60 L (0.66-1.25) mg/dL Glucose 118 H (74-99) mg/dL POC Glucose (mg/dL) (75-99) mg/dL Plasma Lactic Acid [place] (0.7-2.0) mmol/L Total Bilirubin 3.6 H (0.2-1.3) mg/dL Albumin 1.7 L (3.5-5.0) g/dL Ur Specific [place] >1.050 H (1.001-1.035) Urine Protein (Negative) Urine Bilirubin 1+ H (Negative) Amorphous Sediment (None) /hpf Urine Mucus (None) /hpf Urine Yeast (Budding) (None) /hpf 04/19/19 04/19/19 04/19/19 Range/Units 12:45 15:23 18:01 WBC (3.8-10.6) k/uL RBC 2.49 L (4.30-5.90) m/uL Hgb 7.1 L (13.0-17.5) gm/dL Hct 25.5 L (39.0-53.0) % MCV 102.4 H D (80.0-100.0) fL MCHC 27.9 L (31.0-37.0) g/dL RDW 18.9 H (11.5-15.5) % Plt Count 124 L (150-450) k/uL Neutrophils # (1.3-7.7) k/uL Neutrophils # (Manual) (1.3-7.7) k/uL Lymphocytes # 0.8 L (1.0-4.8) k/uL Lymphocytes # (Manual) (1.0-4.8) k/uL Monocytes # 4.7 H (0-1.0) k/uL PT (9.0-12.0) sec INR (<1.2) APTT (22.0-30.0) sec Chloride (98-107) mmol/L Carbon Dioxide (22-30) mmol/L BUN (9-20) mg/dL Creatinine (0.66-1.25) mg/dL Glucose (74-99) mg/dL POC Glucose (mg/dL) 112 H (75-99) mg/dL Plasma Lactic Acid [place] 3.2 H* (0.7-2.0) mmol/L Total Bilirubin (0.2-1.3) mg/dL Albumin (3.5-5.0) g/dL Ur Specific [place] (1.001-1.035) Urine Protein (Negative) Urine Bilirubin (Negative) Amorphous Sediment (None) /hpf Urine Mucus (None) /hpf Urine Yeast (Budding) (None) /hpf 04/19/19 04/19/19 Range/Units 18:32 23:56 WBC (3.8-10.6) k/uL RBC (4.30-5.90) m/uL Hgb (13.0-17.5) gm/dL Hct (39.0-53.0) % MCV (80.0-100.0) fL MCHC (31.0-37.0) g/dL RDW (11.5-15.5) % Plt Count (150-450) k/uL Neutrophils # (1.3-7.7) k/uL Neutrophils # (Manual) (1.3-7.7) k/uL Lymphocytes # (1.0-4.8) k/uL Lymphocytes # (Manual) (1.0-4.8) k/uL Monocytes # (0-1.0) k/uL PT (9.0-12.0) sec INR (<1.2) APTT (22.0-30.0) sec Chloride (98-107) mmol/L Carbon Dioxide (22-30) mmol/L BUN (9-20) mg/dL Creatinine (0.66-1.25) mg/dL Glucose (74-99) mg/dL POC Glucose (mg/dL) 162 H 110 H (75-99) mg/dL Plasma Lactic Acid [place] (0.7-2.0) mmol/L Total Bilirubin (0.2-1.3) mg/dL Albumin (3.5-5.0) g/dL Ur Specific [place] (1.001-1.035) Urine Protein (Negative) Urine Bilirubin (Negative) Amorphous Sediment (None) /hpf Urine Mucus (None) /hpf Urine Yeast (Budding) (None) /hpf Thrombosis Risk Factor Assmnt - Choose All That Apply Each Factor Represents 1 point: Medical pt on bed rest Each Risk Factor Represents 2 Points: Age 61-74 years Each Risk Factor Represents 3 Points: History of DVT/PE Thrombosis Risk Factor Assessment Total Risk Factor Score: 6 Thrombosis Risk Factor Assessment Level: High Risk
[2019-04-20] MEDS: MELATONIN 5 MG TABLET PO SCH (21:12)
[2019-04-20] MEDS: MUPIROCIN 2% OINT 22 GM TUBE TOPICAL SCH (21:12)
[2019-04-20] MEDS: FORMOTEROL FUMARATE 20 MCG/2 ML NEBU INHALATION SCH (22:00)
[2019-04-21 00:06] LABS: Glucose,Whole Blood 164 mg/dL (75-99)
[2019-04-21] MEDS: SODIUM CHLORIDE 0.9% 1,000 ML IV SCH ×2 (00:34→19:10)
[2019-04-21 05:20] LABS: Anisocytosis Slight; HCT 24.3 % (39.0-53.0); HGB 7.2 gm/dL (13.0-17.5); Hypochromasia Marked; MCH 28.5 pg (25.0-35.0); MCHC 29.4 g/dL (31.0-37.0); MCV 96.8 fL (80.0-100.0); Macrocytosis Slight; Mean Platelet Volume 8.4; Platelet Count 149 k/uL (150-450); Poikilocytosis Moderate; RBC 2.51 m/uL (4.30-5.90); RDW 18.9 % (11.5-15.5); WBC 4.7 k/uL (3.8-10.6)
[2019-04-21 05:25] LABS: African American GFR (CKD) >90 (>60 ml/min/1.73 sqM); Anion Gap 3 mmol/L; Blood Urea Nitrogen 16 mg/dL (9-20); Calcium 7.5 mg/dL (8.4-10.2); Carbon Dioxide 21 mmol/L (22-30); Chloride 111 mmol/L (98-107); Glucose 116 mg/dL (74-99); Non-African American GFR(CKD) >90 (>60 ml/min/1.73 sqM); Potassium 3.3 mmol/L (3.5-5.1); Sodium 135 mmol/L (137-145)
[2019-04-21] MEDS ORDERED: Potassium Replacement Protocol 1 EACH MISC MISCELLANE PRN (05:32)
[2019-04-21 05:35] LABS: INR 1.8 (<1.2); Partial Thromboplastin Time 36.7 sec (22.0-30.0); Prothrombin Time 17.4 sec (9.0-12.0)
[2019-04-21 05:43] LABS: Band Neutrophils % 8 %; Eosinophils # (M) 0.19 k/uL (0-0.7); Lymphocytes # (M) 0.47 k/uL (1.0-4.8); Monocytes # (M) 0.28 k/uL (0-1.0); Neutrophils % (M) 72 %; Nucleated Red Blood Cells 0 /100 WBC (0-0); Total Cells Counted 100
[2019-04-21 05:44] LABS: Anisocytosis (M) Present; Poikilocytosis (M) Present
[2019-04-21 06:03] LABS: Glucose,Whole Blood 116 mg/dL (75-99)
[2019-04-21] MEDS: POTASSIUM CHLORIDE 10 MEQ in WATER FOR INJECTION 1 100ML.BAG IVPB SCH ×4 (06:03→09:27)
[2019-04-21] MEDS: PANTOPRAZOLE 40 MG/10 ML VIAL IVP SCH (08:19)
[2019-04-21] MEDS: FORMOTEROL FUMARATE 20 MCG/2 ML NEBU INHALATION SCH ×2 (08:34→19:11)
[2019-04-21 11:06] LABS: ALT 17 U/L (4-49); AST 54 U/L (17-59); African American GFR (CKD) >90 (>60 ml/min/1.73 sqM); Albumin 1.5 g/dL (3.5-5.0); Alkaline Phosphatase 102 U/L (38-126); Anion Gap 3 mmol/L; Blood Urea Nitrogen 14 mg/dL (9-20); Calcium 7.4 mg/dL (8.4-10.2); Carbon Dioxide 22 mmol/L (22-30); Chloride 112 mmol/L (98-107); Glucose 96 mg/dL (74-99); Non-African American GFR(CKD) >90 (>60 ml/min/1.73 sqM); Potassium 4.1 mmol/L (3.5-5.1); Sodium 137 mmol/L (137-145); Total Bilirubin 3.5 mg/dL (0.2-1.3); Total Protein 6.2 g/dL (6.3-8.2)
[2019-04-21 11:42] LABS: Glucose,Whole Blood 86 mg/dL (75-99)
--- NOTE | 2019-04-21 12:21 | P.PN ---
Subjective Progress Note Date: 04/21/19 Principal diagnosis: Acute upper GI bleeding 63-year-old male patient, presenting to the hospital because of upper GI bleeding. The patient had nausea for around 4 days and he had some coffee- ground emesis at the detention he stays. He had several episodes. He is on long-term anticoagulation with Eliquis. He was brought into hospital for further evaluation. The patient's blood pressure at time of admission was normal and the patient did not have any hypotension. The patient's hemoglobin at time of admission was 8.3. Currently is in intensive care unit for further monitoring. There is history of liver cirrhosis. Nevertheless, the patient has had multiple EGDs in 2019 for recurrent upper GI bleed. Overall he had received a total of 2 units of packed RBCs during the year of 2019. On his several EGDs that was done by gastroenterology, the patient was found to have a 1.5 x 2 cm duodenal ulcer along the duodenal sweep with a visible vessel and was getting a nd he has required multiple interventions including injections with epinephrine to control the bleeding. He does not have any melanotic stools for now. He does not have any esophageal varices. Dry clean and intact. Patient's INR is at 2.1 with a PT of 20.2 and a PTT of 33.7. He doesn't take any other form of antiplatelet agents. Has some mild lactic acidosis, admission is currently improving is down to 3.2 from 4.6 at baseline. Renal function is within normal limits. X-rays are also within normal limits. LFTs are normal with a bilirubin of 3.6. Troponins are negative. Albumin is at 1.7. UA is within normal limits with +1 bilirubin. Signs of any hepatic encephalopathy and the patient is awake and alert.For tomorrow This morning of 04/20/2019 the patient is awake and alert. He has not had any further episodes of bleeding. Hemoglobin monitoring showed that the hemoglobin dropped down to 6.6. He'll be receiving a unit of packed RBC. Is off anticoagulation. The plan is to do another endoscopy in a.m. He is off the octreotide drip and his receiving normal saline at the rate of 75 mL an hour. He has no complaints. In fact he is hungry and requesting some oral intake and it cleared him for some clear liquids for today. He is on IV Protonix. Chest x-ray is within normal limits. No acute abnormalities noted. Reevaluated today on 04/21/2019, a is feeling better. Remains in the intensive care unit. He received a total of 1 unit of packed RBCs since admission. No active GI bleeding has been noted in the last 24 hours. Patient is scheduled to undergo EGD today. In the meantime he remains hemodynamically stable, not requiring more than a unit of packed RBCs given since admission. Denies any nausea vomiting abdominal pain melena or hematemesis. Remains off anticoagulation therapy. He is off octreotide. Remains on IV Protonix. Objective - Vital Signs Vital signs: Vital Signs Temp 97.8 F 04/21/19 08:00 Pulse 82 04/21/19 11:00 Resp 22 04/21/19 11:00 BP 121/79 04/21/19 11:00 Pulse Ox 96 04/21/19 11:00 Intake & Output 04/20/19 04/21/19 04/21/19 18:59 06:59 18:59 Intake Total 1750 675 650 Output Total 580 470 315 Balance 1170 205 335 Weight 65.5 kg 66.4 kg Intake: IV 940 675 450 0.9 NS 940 675 450 Intake, IV Titration 200 Amount Potassium Chloride 10 meq 200 In Water For Injection 1 100ml.bag @ 100 mls/hr IVPB Q1HR [facility] [place] Rx#: [id number] Oral 500 Blood Product 310 Rc Irr As1 Unit 310 [id number] Output: Urine 580 470 315 Other: Voiding Method Indwelling Catheter Indwelling Catheter Indwelling Catheter - Exam Physical Exam: Revealed a 63-year-old white male in no distress. Head: Atraumatic, normocephalic. 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 Left lower extremity shows diminished pulses otherwise no acute abnormalities. There is some superficial ulceration of the skin which is well dry and there is no drainage at this point in time. Neurological Exam: [No focal neurologic deficit.] Psychiatric: Normal mood, affect and normal mental status examination. Skin: Chronic superficial ulcerations noted. - Labs CBC & Chem 7: 04/21/19 04:34 04/21/19 10:30 Labs: Abnormal Lab Results - Last 24 Hours (Table) 04/20/19 04/20/19 04/21/19 Range/Units 08:18 14:05 00:04 RBC 2.96 L (4.30-5.90) m/uL Hgb 8.4 L (13.0-17.5) gm/dL Hct 27.9 L (39.0-53.0) % MCHC 30.0 L (31.0-37.0) g/dL RDW 19.4 H (11.5-15.5) % Plt Count 112 L (150-450) k/uL Lymphocytes # (Manual) 0.12 L 0.25 L (1.0-4.8) k/uL PT (9.0-12.0) sec INR (<1.2) APTT (22.0-30.0) sec Sodium (137-145) mmol/L Potassium (3.5-5.1) mmol/L Chloride (98-107) mmol/L Carbon Dioxide (22-30) mmol/L Creatinine (0.66-1.25) mg/dL Glucose (74-99) mg/dL POC Glucose (mg/dL) 164 H (75-99) mg/dL Calcium (8.4-10.2) mg/dL Total Bilirubin (0.2-1.3) mg/dL Total Protein (6.3-8.2) g/dL Albumin (3.5-5.0) g/dL 04/21/19 04/21/19 04/21/19 Range/Units 04:34 04:34 04:34 RBC 2.51 L (4.30-5.90) m/uL Hgb 7.2 L (13.0-17.5) gm/dL Hct 24.3 L (39.0-53.0) % MCHC 29.4 L (31.0-37.0) g/dL RDW 18.9 H (11.5-15.5) % Plt Count 149 L (150-450) k/uL Lymphocytes # (Manual) 0.47 L (1.0-4.8) k/uL PT 17.4 H (9.0-12.0) sec INR 1.8 H (<1.2) APTT 36.7 H (22.0-30.0) sec Sodium 135 L (137-145) mmol/L Potassium 3.3 L (3.5-5.1) mmol/L Chloride 111 H (98-107) mmol/L Carbon Dioxide 21 L (22-30) mmol/L Creatinine 0.59 L (0.66-1.25) mg/dL Glucose 116 H (74-99) mg/dL POC Glucose (mg/dL) (75-99) mg/dL Calcium 7.5 L (8.4-10.2) mg/dL Total Bilirubin (0.2-1.3) mg/dL Total Protein (6.3-8.2) g/dL Albumin (3.5-5.0) g/dL 04/21/19 04/21/19 Range/Units 06:02 10:30 RBC (4.30-5.90) m/uL Hgb (13.0-17.5) gm/dL Hct (39.0-53.0) % MCHC (31.0-37.0) g/dL RDW (11.5-15.5) % Plt Count (150-450) k/uL Lymphocytes # (Manual) (1.0-4.8) k/uL PT (9.0-12.0) sec INR (<1.2) APTT (22.0-30.0) sec Sodium (137-145) mmol/L Potassium (3.5-5.1) mmol/L Chloride 112 H (98-107) mmol/L Carbon Dioxide (22-30) mmol/L Creatinine 0.49 L (0.66-1.25) mg/dL Glucose (74-99) mg/dL POC Glucose (mg/dL) 116 H (75-99) mg/dL Calcium 7.4 L (8.4-10.2) mg/dL Total Bilirubin 3.5 H (0.2-1.3) mg/dL Total Protein 6.2 L (6.3-8.2) g/dL Albumin 1.5 L (3.5-5.0) g/dL Microbiology - Last 24 Hours (Table) 04/19/19 10:04 Blood Culture - Preliminary Blood No Growth after 24 hours Assessment and Plan Assessment: Impression: Acute upper GI bleeding History of liver cirrhosis History of hepatic encephalopathy Chronic obstructive lung disease presently inactive History of right upper extremity deep vein thrombosis History of hypertension History of alcoholism Peripheral vessel occlusive disease and previous right lower extremity above- knee amputation Chronic anemia 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 Recommendation: Continue Protonix Awaiting EGD to be done today Discontinue Eliquis altogether. Based on the EGD findings, we'll consider transfer the patient out of the ICU to a regular medical floor. Continue to monitor hemoglobin on a daily basis. So far the patient received 1 unit of packed RBCs. Again depending on the EGD findings may transfer out of the ICU later today or tomorrow. We'll continue to follow Time with Patient: Less than 30
[2019-04-21] MEDS ORDERED: LIDOCAINE 1% INJ 10MG/ML (20 ML MDV) ONE (13:22)
[2019-04-21] MEDS ORDERED: PROPOFOL 10 MG/ML 20 ML VIAL IV ONE (13:22)
[2019-04-21] MEDS ORDERED: IV FLUID CONTINUATION 1,000 ML IV ONE (13:42)
--- NOTE | 2019-04-21 13:57 | P.PCN ---
Date of Procedure: 04/21/19 Description of Procedure: BRIEF HISTORY: Patient is a 63-year-old male presenting with episodes of coffee-ground emesis. He had a prior history of duodenal ulcer diagnosed in 01/2009. At that time he was treated with PPI therapy as well as endoscopically with Endo Clip placement and injection of epinephrine. PROCEDURE PERFORMED: Esophagogastroduodenoscopy with biopsy. PREOPERATIVE DIAGNOSIS: Coffee-ground emesis, anemia of acute blood loss. ESTIMATED BLOOD LOSS: Minimal. IV sedation per anesthesia. PROCEDURE: After informed consent was obtained, the patient was brought into the endoscopy unit. IV sedation was administered by Anesthesia under continuous monitoring. Initially the Olympus GIF-190 video endoscope was inserted into the mouth. Esophagus intubated without any difficulty. It was gradually advanced into the stomach and duodenum and carefully examined. The bulb and the second part of the duodenum appeared normal. The scope at this time was withdrawn to the stomach, adequately insufflated with air, and upon careful examination, mucosa of the antrum, body, cardia and the fundus appeared normal, with mild scattered erythema and superficial erosions in the antrum and body suggestive of moderate gastritis. The scope was then withdrawn into the esophagus. The GE junction was located at 39 cm from the incisors. The esophagus was significant for erythema and superficial erosions in the distal esophagus consistent with LA grade C esophagitis. The patient tolerated the procedure well. IMPRESSION: 1. LA grade C esophagitis. 2. Moderate gastritis antrum body, biopsied. 3. No active bleeding or old blood noted. RECOMMENDATIONS: The findings of this examination were discussed with the patient. Okay to resume diet. Continue to monitor hemoglobin and hematocrit and transfuse as needed. Continue Protonix 40 mg twice daily. Carafate 3 times a day before meals and at bedtime added. Okay to resume anticoagulation tomorrow if hemodynamically stable.
[2019-04-21 16:13] LABS: Anisocytosis Slight; HCT 28.2 % (39.0-53.0); HGB 8.2 gm/dL (13.0-17.5); Hypochromasia Marked; MCH 28.2 pg (25.0-35.0); MCHC 29.1 g/dL (31.0-37.0); MCV 96.9 fL (80.0-100.0); Macrocytosis Slight; Mean Platelet Volume 8.2; Platelet Count 121 k/uL (150-450); Poikilocytosis Moderate; RBC 2.91 m/uL (4.30-5.90); RDW 19.7 % (11.5-15.5); WBC 4.8 k/uL (3.8-10.6)
[2019-04-21 17:15] LABS: Eosinophils # (M) 0.24 k/uL (0-0.7); Lymphocytes # (M) 0.19 k/uL (1.0-4.8); Monocytes # (M) 0.14 k/uL (0-1.0); Neutrophils # (M) 4.22 k/uL (1.3-7.7); Neutrophils % (M) 88 %; Nucleated Red Blood Cells 0 /100 WBC (0-0); Total Cells Counted 100
[2019-04-21 17:16] LABS: Poikilocytosis (M) Present
[2019-04-21] MEDS: SUCRALFATE 1 GM TAB PO SCH ×2 (19:10→22:08)
[2019-04-21] MEDS: PANTOPRAZOLE 40 MG TABLET PO SCH (19:10)
[2019-04-21] MEDS: MUPIROCIN 2% OINT 22 GM TUBE TOPICAL SCH (22:08)
[2019-04-21] MEDS: MELATONIN 5 MG TABLET PO SCH (22:08)
--- NOTE | 2019-04-21 22:54 | P.PN ---
Progress Note - Text Progress Note Date: 04/21/19 Chief Complaint: GI bleed History of presenting complaint: This is a patient with prior history of GI bleeds. He hasn't EGD in January 2019 that showed her to 68. Duodenal bulb ulcer. Patient had been on eliquis for history of DVT. He had 3 episodes of coffee-ground emesis of the ECF her bills for the same. Has known alcoholic liver disease. Patient refused NG tube initial hemoglobin was around 7. Chronic stable medical conditions include GERD, hypertension, chronic liver disease questionable cirrhosis, lymphedema left lower extremity. Has a congested cough. Some sputum production. Some wheezing. Patient had been a smoker. Admitted to the ICU. Today-went down for EGD. Found to have grade C esophagitis and gastritis. No other source of bleeding. Diet is being resumed. No further GI bleed. Review of systems: Was done for constitutional, cardiovascular, GI, pulmonary. relevant finding as above Active Medications Formoterol Fumarate (Perforomist) 20 mcg INHALATION RT-BID [facility] Last Admin: 04/21/19 19:11 Dose: 20 mcg Documented by: Hydromorphone HCl (Dilaudid) 0.5 mg IVP Q2HR PRN PRN Reason: Pain Scale 4 to 5 Last Admin: 04/21/19 04:11 Dose: 0.5 mg Documented by: Sodium Chloride (Saline 0.9%) 1,000 mls @ 75 mls/hr IV .[id number] [facility] Last Admin: 04/21/19 19:10 Dose: 75 mls/hr Documented by: Melatonin (Melatonin) 5 mg PO [facility] Last Admin: 04/21/19 22:08 Dose: 5 mg Documented by: Miscellaneous Information (Potassium Per Protocol) 1 each MISCELLANE DAILY PRN; Protocol PRN Reason: Per Protocol Mupirocin (Bactroban Oint) 1 applic TOPICAL [facility] Last Admin: 04/21/19 22:08 Dose: 1 applic Documented by: Naloxone HCl (Narcan) 0.2 mg IV Q2M PRN PRN Reason: Opioid Reversal Ondansetron HCl (Zofran) 4 mg IVP Q6HR PRN PRN Reason: Nausea And Vomiting Pantoprazole Sodium (Protonix) 40 mg PO AC-BID [facility] Last Admin: 04/21/19 19:10 Dose: 40 mg Documented by: Sucralfate (Carafate) 1 gm PO [facility] Last Admin: 04/21/19 22:08 Dose: 1 gm Documented by: Physical examination: VITAL SIGNS: 97.8, 76, 17, 123/72, 96% on 2 L GENERAL: Laying in bed, awake EYES: Pupils equal. Conjunctiva pale HEENT: [External appearance of nose and ears normal, oral cavity dry. NECK: JVD not raised; masses not palpable. HEART: First and second heart sounds are normal; some edema. LUNGS: Respiratory rate increased, decreased breaths on some wheezing. ABDOMEN: Soft, nontender, liver spleen not palpable, no masses palpable. PSYCH: Alert and oriented x3; mood and affect normal. EXTREMITIES: Right above-knee hypertension INVESTIGATIONS, reviewed in the clinical context: White count 4.8 hemoglobin 8.2 EGD-grade C esophagitis, gastritis Previous testing White count 7.8 hemoglobin 7.1 platelets 124 Potassium 4.1 124 creatinine 0.60 albumin 1.7 Computed tomography scan abdomen-possible infiltrate extensive gastrosplenic releases present esophageal releases present. Scattered diverticula in the sigmoid colon. Generalized changes of cirrhosis some ascites Assessment: -Patient presented with coffee-ground emesis from esophagitis and gastritis -Chronic liver disease with evidence of cirrhosis on the computed tomography scan with evidence of ascites and gastrosplenic varices -Esophageal varices -Acute blood loss anemia from GI bleed, requiring blood transfusion -Acute COPD exacerbation and a smoker -Chronic nicotine dependence cigarette smoker -DVT for which patient is on eliquis currently held Plan: Diet is be started today. Eliquis resumed tomorrow. If hemoglobin remains stable patient can go back to ECF tomorrow.
[2019-04-22] MEDS: SODIUM CHLORIDE 0.9% 1,000 ML IV SCH (07:41)
[2019-04-22] MEDS: PANTOPRAZOLE 40 MG TABLET PO SCH (07:41)
[2019-04-22] MEDS: SUCRALFATE 1 GM TAB PO SCH ×2 (07:41→11:57)
[2019-04-22] MEDS: FORMOTEROL FUMARATE 20 MCG/2 ML NEBU INHALATION SCH (08:27)
--- NOTE | 2019-04-22 12:11 | P.DS ---
Providers Date of admission: 04/19/19 10:09 Expected date of discharge: 04/22/19 Attending physician: Bacilio Romero Consults: 04/19/19 10:09 Consult Physician Urgent Consulting Provider: Edinson Kyle Consult Reason/Comments: Upper GI bleed, esophageal varices Do you want consulting provider notified?: Already Contacted Consult Physician Urgent Consulting Provider: Danna Mckinney Consult Reason/Comments: GI bleed, esophageal varices Do you want consulting provider notified?: Already Contacted Primary care physician: [facility] Course: Chief Complaint: GI bleed Hospital course: This is a patient with prior history of GI bleeds. EGD in January 2019 that showed - Duodenal bulb ulcer. Patient had been on eliquis f DVT. He had 3 episodes of coffee-ground emesis at the [facility] . Has known alcoholic liver disease. Patient refused NG tube initial hemoglobin was around 7. Chronic stable medical conditions include GERD, hypertension, chronic liver disease possible cirrhosis, lymphedema left lower extremity. Has a congested cough. Some sputum production. Some wheezing. Patient had been a smoker. Admitted to the ICU. EGD-grade C esophagitis and gastritis. No other source of bleeding. Diet is being resumed. No further GI bleed. Eliquis is being resumed. Patient did receive a unit of blood. Hemoglobin dropped from 6.6. Currently 8.2 tolerated diet. Consultation: Dr. Ashlie Mckinney and associates from GI Dr. Kyle associates from senior graduate advisor Physical examination: VITAL SIGNS: 78, 16, 124/66, 92% on 2 L GENERAL: Laying in bed, awake EYES: Pupils equal. Conjunctiva pale HEENT: [External appearance of nose and ears normal, oral cavity dry. NECK: JVD not raised; masses not palpable. HEART: First and second heart sounds are normal; some edema. LUNGS: Respiratory rate increased, decreased breaths ABDOMEN: Soft, nontender, liver spleen not palpable, no masses palpable. PSYCH: Alert and oriented x3; mood and affect normal. EXTREMITIES: Right above-knee hypertension INVESTIGATIONS, reviewed in the clinical context: White count 4.8 hemoglobin 8.2 platelet 121 EGD-grade C esophagitis, gastritis Previous testing White count 7.8 hemoglobin 7.1 platelets 124 Potassium 4.1 124 creatinine 0.60 albumin 1.7 Computed tomography scan abdomen-possible infiltrate extensive gastrosplenic releases present esophageal releases present. Scattered diverticula in the sigmoid colon. Generalized changes of cirrhosis some ascites Assessment: -Patient presented with coffee-ground emesis from esophagitis and gastritis -Chronic liver disease with evidence of cirrhosis on the computed tomography scan with evidence of ascites and gastrosplenic varices -Acute blood loss anemia from GI bleed, requiring one unit blood transfusion -Acute COPD exacerbation - smoker -Chronic nicotine dependence cigarette smoker -DVT for which patient is on eliquis being resumed Disposition: ECF/[facility] Patient Condition at Discharge: Stable Plan - Discharge Summary New Discharge Prescriptions: New Sucralfate [Carafate] 1 gm PO ACHS tab Continue Pantoprazole [Protonix] 40 mg PO BID Apixaban [Eliquis] 5 mg PO BID Multivit-Min/FA/Lycopen/Lutein [Centrum Silver Men Tablet] 1 tab PO DAILY Ipratropium-Albuterol Nebulize [Duoneb 0.5 mg-3 mg/3 ml Soln] 3 ml INHALATION RT-QID PRN ampul.neb PRN Reason: Shortness Of Breath Or Wheezing Budesonide-Formot 160-4.5 Mcg [Symbicort 160-4.5 Mcg Inhaler] 2 puff INHALATION RT-BID puff Acetaminophen [Tylenol 8 Hour] 650 mg PO Q6H PRN PRN Reason: Pain Prostat 30 ml PO BID House Supplement 1 can PO BID Mupirocin 2% Oint [Bactroban 2% Oint] 1 applic TOPICAL HS Ferrous Sulfate [Iron (65 MG Elemental)] 325 mg PO BID Calcium Carbonate [Calcium] 600 mg PO BID Promethazine HCl 12.5 mg PO Q6H PRN PRN Reason: Nausea And Vomiting Ipratropium-Albuterol Nebulize [Duoneb 0.5 mg-3 mg/3 ml Soln] 3 ml INHALATION RT-Q8H PRN PRN Reason: Shortness Of Breath Changed Potassium Chloride ER [K-Dur 20] 20 meq PO DAILY #0 Furosemide [Lasix] 20 mg PO DAILY #0 tab Metoprolol Tartrate [Lopressor] 12.5 mg PO BID #0 tab Melatonin 5 mg PO HS #0 Discharge Medication List Apixaban [Eliquis] 5 mg PO BID 03/07/19 [History] Multivit-Min/FA/Lycopen/Lutein [Centrum Silver Men Tablet] 1 tab PO DAILY 03/07/19 [History] Pantoprazole [Protonix] 40 mg PO BID 03/07/19 [History] Budesonide-Formot 160-4.5 Mcg [Symbicort 160-4.5 Mcg Inhaler] 2 puff INHALATION RT-BID puff 03/21/19 [Rx] Ipratropium-Albuterol Nebulize [Duoneb 0.5 mg-3 mg/3 ml Soln] 3 ml INHALATION RT-QID PRN ampul.neb 03/21/19 [Rx] Acetaminophen [Tylenol 8 Hour] 650 mg PO Q6H PRN 04/19/19 [History] Calcium Carbonate [Calcium] 600 mg PO BID 04/19/19 [History] Ferrous Sulfate [Iron (65 MG Elemental)] 325 mg PO BID 04/19/19 [History] House Supplement 1 can PO BID 04/19/19 [History] Ipratropium-Albuterol Nebulize [Duoneb 0.5 mg-3 mg/3 ml Soln] 3 ml INHALATION RT-Q8H PRN 04/19/19 [History] Mupirocin 2% Oint [Bactroban 2% Oint] 1 applic TOPICAL HS 04/19/19 [History] Promethazine HCl 12.5 mg PO Q6H PRN 04/19/19 [History] Prostat 30 ml PO BID 04/19/19 [History] Furosemide [Lasix] 20 mg PO DAILY #0 tab 04/22/19 [Rx] Melatonin 5 mg PO HS #0 04/22/19 [Rx] Metoprolol Tartrate [Lopressor] 12.5 mg PO BID #0 tab 04/22/19 [Rx] Potassium Chloride ER [K-Dur 20] 20 meq PO DAILY #0 04/22/19 [Rx] Sucralfate [Carafate] 1 gm PO ACHS tab 04/22/19 [Rx] Follow up Appointment(s)/Referral(s): Bakari Racehl DO [Primary Care Provider] - 1-2 days
[2019-04-22 12:32] VITALS: BP 109/65; PULSE 90; RESP 18; TEMP 98
--- NOTE | 2019-04-22 12:46 | P.PN ---
Subjective Progress Note Date: 04/22/19 Principal diagnosis: Acute upper GI bleeding 63-year-old male patient, presenting to the hospital because of upper GI bleeding. The patient had nausea for around 4 days and he had some coffee- ground emesis at the long term he stays. He had several episodes. He is on long-term anticoagulation with Eliquis. He was brought into hospital for further evaluation. The patient's blood pressure at time of admission was normal and the patient did not have any hypotension. The patient's hemoglobin at time of admission was 8.3. Currently is in intensive care unit for further monitoring. There is history of liver cirrhosis. Nevertheless, the patient has had multiple EGDs in 2019 for recurrent upper GI bleed. Overall he had received a total of 2 units of packed RBCs during the year of 2019. On his several EGDs that was done by gastroenterology, the patient was found to have a 1.5 x 2 cm duodenal ulcer along the duodenal sweep with a visible vessel and was getting a nd he has required multiple interventions including injections with epinephrine to control the bleeding. He does not have any melanotic stools for now. He does not have any esophageal varices. Dry clean and intact. Patient's INR is at 2.1 with a PT of 20.2 and a PTT of 33.7. He doesn't take any other form of antiplatelet agents. Has some mild lactic acidosis, admission is currently improving is down to 3.2 from 4.6 at baseline. Renal function is within normal limits. X-rays are also within normal limits. LFTs are normal with a bilirubin of 3.6. Troponins are negative. Albumin is at 1.7. UA is within normal limits with +1 bilirubin. Signs of any hepatic encephalopathy and the patient is awake and alert.For tomorrow This morning of 04/20/2019 the patient is awake and alert. He has not had any further episodes of bleeding. Hemoglobin monitoring showed that the hemoglobin dropped down to 6.6. He'll be receiving a unit of packed RBC. Is off anticoagulation. The plan is to do another endoscopy in a.m. He is off the octreotide drip and his receiving normal saline at the rate of 75 mL an hour. He has no complaints. In fact he is hungry and requesting some oral intake and it cleared him for some clear liquids for today. He is on IV Protonix. Chest x-ray is within normal limits. No acute abnormalities noted. Reevaluated today on 04/21/2019, a is feeling better. Remains in the intensive care unit. He received a total of 1 unit of packed RBCs since admission. No active GI bleeding has been noted in the last 24 hours. Patient is scheduled to undergo EGD today. In the meantime he remains hemodynamically stable, not requiring more than a unit of packed RBCs given since admission. Denies any nausea vomiting abdominal pain melena or hematemesis. Remains off anticoagulation therapy. He is off octreotide. Remains on IV Protonix. Reevaluated today on 04/22/2019 patient remains in the ICU, doing great, his hemoglobin is stable, no further blood transfusion was given beyond the 1 unit that he received initially. His EGD findings were noted and is mostly findings of esophagitis and gastritis. No active bleeding was noted, hence the patient was cleared for discharge today. Objective - Vital Signs Vital signs: Vital Signs Temp 98.0 F 04/22/19 12:30 Pulse 90 04/22/19 12:30 Resp 18 04/22/19 12:30 BP 109/65 04/22/19 12:30 Pulse Ox 90 L 04/22/19 12:30 Intake & Output 04/21/19 04/22/19 04/22/19 18:59 06:59 18:59 Intake Total 1150 1050 Output Total 555 835 175 Balance 595 215 -175 Intake: IV 950 1050 0.9 NS 750 1050 Intake, IV Titration 200 Amount Potassium Chloride 10 meq 200 In Water For Injection 1 100ml.bag @ 100 mls/hr IVPB Q1HR [facility] Rx#: [id number] Output: Urine 555 835 175 Other: Voiding Method Indwelling Catheter Indwelling Catheter Indwelling Catheter - Exam Physical Exam: 63-year-old asymptomatic on room air. Head: Atraumatic, normocephalic. 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 Left lower extremity shows diminished pulses otherwise no acute abnormalities. There is some superficial ulceration of the skin which is well dry and there is no drainage at this point in time. Neurological Exam: [No focal neurologic deficit.] Psychiatric: Normal mood, affect and normal mental status examination. - Labs CBC & Chem 7: 04/21/19 15:25 04/21/19 10:30 Labs: Abnormal Lab Results - Last 24 Hours (Table) 04/21/19 Range/Units 15:25 RBC 2.91 L (4.30-5.90) m/uL Hgb 8.2 L (13.0-17.5) gm/dL Hct 28.2 L (39.0-53.0) % MCHC 29.1 L (31.0-37.0) g/dL RDW 19.7 H (11.5-15.5) % Plt Count 121 L (150-450) k/uL Lymphocytes # (Manual) 0.19 L (1.0-4.8) k/uL Microbiology - Last 24 Hours (Table) 04/19/19 10:04 Blood Culture - Preliminary Blood No Growth after 72 hours Assessment and Plan Assessment: Impression: Acute upper GI bleeding, resolved, no active bleeding at present History of liver cirrhosis History of hepatic encephalopathy Chronic obstructive lung disease presently inactive History of right upper extremity deep vein thrombosis History of hypertension History of alcoholism Peripheral vessel occlusive disease and previous right lower extremity above- knee amputation Chronic anemia 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 Recommendation: Continue Protonix EGD findings were noted, and we'll continue to follow recommendation as per gastroenterology, patient was cleared for discharge.. Based on the EGD findings, clear to be transferred out of the ICU or possibly discharged home. The decision to discharge home would be up to his admitting physician. We will sign off and see when necessary Time with Patient: Less than 30
[2019-04-22 15:11] VITALS: BMI 23.6
== END 2019-04-22 16:17 | DRG 378 ==
LOC: EC 07:55 → 2SICU 10:09
PROVIDERS: ADMIT Hospitalist; ATTEND Hospitalist
PROC: 30233N1 Transfusion of Nonautologous Red Blood Cells into Peripheral Vein, Percutaneous Approach (ICD-10-PCS; 2019-04-20)
PROC: 0DB78ZX Excision of Stomach, Pylorus, Via Natural or Artificial Opening Endoscopic, Diagnostic (ICD-10-PCS; principal; 2019-04-21 07:50)
DX: K29.71 Gastritis, unspecified, with bleeding (principal); D62 Acute posthemorrhagic anemia; E87.2 Acidosis; J44.1 Chronic obstructive pulmonary disease with (acute) exacerbation; K70.31 Alcoholic cirrhosis of liver with ascites; K70.9 Alcoholic liver disease, unspecified; K21.0 Gastro-esophageal reflux disease with esophagitis; K22.8 Other specified diseases of esophagus; D72.829 Elevated white blood cell count, unspecified; F17.210 Nicotine dependence, cigarettes, uncomplicated; I10 Essential (primary) hypertension; I73.9 Peripheral vascular disease, unspecified; F10.20 Alcohol dependence, uncomplicated; K80.20 Calculus of gallbladder without cholecystitis without obstruction; Z79.01 Long term (current) use of anticoagulants; Z79.51 Long term (current) use of inhaled steroids; Z79.899 Other long term (current) drug therapy; Z86.718 Personal history of other venous thrombosis and embolism; Z87.01 Personal history of pneumonia (recurrent); Z89.611 Acquired absence of right leg above knee; Z91.81 History of falling; Z83.3 Family history of diabetes mellitus; Z83.79 Family history of other diseases of the digestive system
CPT/HCPCS: 36415; 43239; 71045; 74177; 80048; 80053; 81001; 81003; 83605; 83690; 83735; 84484; 85025; 85610; 85730; 86850; 86900; 86901; 86920; 87040; 88305; 88342; 93005; 94640; 96361; 96374; 96375; 99291